=== PATIENT | female | born 1945 | race Caucasian/White ===

== ENCOUNTER 2016-05-03 18:45 | Inpatient (IN) ==
[2016-05-03] MEDS ORDERED: Ipratropium/Albuterol Neb 3 ML IH ONE (19:01)
[2016-05-03] MEDS ORDERED: methylPREDNISolone 125 MG/2 ML VIAL IVP ONE (19:01)
[2016-05-03] MEDS ORDERED: Racepinephrine Neb 0.5 ML VIAL IH ONE (19:04)
--- NOTE | 2016-05-03 19:09 | Emergency Department Note ---
Disposition Clinical Impression: COPD exacerbation Disposition: Admitted As Inpatient Condition: Fair SOB HPI - General Chief Complaint: ED Shortness of Breath/Dyspnea Stated Complaint: beatriz Time Seen by Provider: 05/03/16 18:51 Source: patient, EMS Limitations: no limitations Nursing Notes Reviewed: Yes Vital Signs Reviewed: Yes - History of Present Illness Patient has a history of COPD and tracheomalacia. Patient with shortness of breath worsening over 2 days acutely worse today. Patient states she has been taking at home breathing treatments without relief. Patient currently having some stridor and not able to talk in complete sentences. Patient will be given racemic epi steroids and do nebs she has got bilateral decreased breath sounds. Discussed with patient BiPAP in possible intubation. Patient is okay with BiPAP but does not want intubated. - Related Data Home Medications Medication Instructions Recorded Confirmed Budesonide/Formoterol 160/4.5 2 puff IH BID 12/19/14 05/03/16 [Symbicort] Docusate [Colace] 100 mg PO BID 12/19/14 05/03/16 Oxygen 2.5 l NS AD 05/17/15 05/03/16 Zaleplon [Sonata] 5 mg PO HS PRN 07/26/15 05/03/16 Nitroglycerin [Nitrostat] 0.4 mg SL Q5M PRN 11/22/15 05/03/16 Acetaminophen [Tylenol] 1,000 mg PO Q6HR PRN 12/20/15 05/03/16 Albuterol Sulfate [Proair Hfa] 2 puff IH Q4H PRN #0 12/20/15 05/03/16 Ergocalciferol (VITAMIN D2) 50,000 unit PO FR 12/20/15 05/03/16 [Vitamin D2 (50,000 UNIT)] Albuterol Neb [Proventil Neb] 2.5 mg IH QID 01/04/16 05/03/16 Alprazolam [Xanax 0.25 MG Tablet] 0.25 mg PO TID PRN 01/04/16 05/03/16 Alprazolam [Xanax 0.5 MG Tablet] 0.5 mg PO HS PRN 01/04/16 05/03/16 Tiotropium [Spiriva] 18 mcg IH 0800 01/04/16 05/03/16 HYDROcodone/Acet 5/325 mg [[place] 1 tab PO TID PRN 02/26/16 05/03/16 5-325 mg] Ondansetron ODT [Zofran ODT] 4 mg SL Q8HR PRN 02/26/16 05/03/16 Bisacodyl [Dulcolax] 10 mg RC DAILY PRN 05/03/16 05/03/16 Fluticasone Propionate Nasal 50 mcg NS HS 05/03/16 05/03/16 [Flonase] L. Acidophilus/Pectin, [place] 1 each PO DAILY 05/03/16 05/03/16 [Acidophilus Probiotic Capsule] Lactulose 20 gm PO DAILY PRN 05/03/16 05/03/16 Metoprolol [Lopressor] 12.5 mg PO BID 05/03/16 05/03/16 Multivitamin QAM 05/03/16 Omeprazole [PriLOSEC] 40 mg PO DAILY 05/03/16 05/03/16 Allergies Allergy/AdvReac Type Severity Reaction Status Date / Time acetylcysteine Allergy Severe Anaphylaxis Verified 02/26/16 09:32 Iodinated Contrast Media - Allergy See Verified 02/26/16 09:32 Oral and Comments [Iodinated Contrast Media - IV Dye] ramelteon [From Rozerem] Allergy Difficulty Verified 02/26/16 09:32 Breathing Amoxicillin [From Augmentin] AdvReac Intermediate Nausea Verified 02/26/16 09:32 azithromycin [From Zithromax] AdvReac Intermediate Nausea Verified 02/26/16 09: 32 clavulanic acid AdvReac Intermediate Nausea Verified 02/26/16 09:32 [From Augmentin] dexlansoprazole AdvReac Mild Headache Verified 02/26/16 09:32 [From Dexilant] prednisone AdvReac Mild See Verified 02/26/16 09:32 Comments sertraline [From Zoloft] AdvReac Mild Depression Verified 02/26/16 09:32 Tetracycline AdvReac Mild Nausea Verified 02/26/16 09:32 Varenicline [From Chantix] AdvReac Mild Nightmare Verified 02/26/16 09:32 Constitutional: Denies: fever, chills, weakness Eyes: Denies: eye pain ENT ED: Denies: ear pain Cardiovascular: Reports: dyspnea on exertion. Denies: chest pain, palpitations Respiratory: Reports: dyspnea, wheezes Gastrointestinal: Denies: abdominal pain, nausea, vomiting Genitourinary: Denies: urgency, dysuria Musculoskeletal: Denies: back pain, neck pain Integumentary: Denies: rash, abrasion Neurological: Denies: headache, weakness Psychiatric: Denies: anxiety, depression Endocrine: Denies: fatigue Hematological/Lymphatic: Denies: easy bleeding Past Medical History - Past Medical History Medical history: Reports: asthma, cancer, CHF, COPD, coronary artery disease, GERD, hyperlipidemia, hypertension, myocardial infarction, osteoporosis, pulmonary embolus, other Surgical history: Reports: angioplasty/stent, cancer surgery, cataract, cholecystectomy, sinus surgery Psychiatric history: Reports: anxiety, depression 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 - Social History Smoking Status: Former smoker Smokeless Tobacco Status: No Alcohol use: Reports: none Drug use: Reports: none Physical Exam - General Limitations: no limitations General appearance: alert, in no apparent distress - Head Head exam: atraumatic, normocephalic - Eye Eye exam: Present: normal appearance - ENT ENT exam: normal exam, normal oropharynx - Neck Neck exam: Present: normal inspection - Respiratory Respiratory exam: Present: respiratory distress, wheezes, stridor - Cardiovascular Cardiovascular exam: Present: regular rate, normal rhythm - Abdominal Exam Abdominal exam: Present: soft, Non-Tender - Extremities Exam Extremities exam: Present: normal inspection - Back Exam Back exam: Present: normal inspection - Neurological Exam Neurological exam: Present: alert, oriented X3 - Psychiatric Psychiatric exam: Present: normal affect, normal mood - Skin Skin exam: Present: warm, dry, intact Course - Reevaluation(s) Reevaluation #1: Patient was going to do racemic epi but is unwilling to do do another Xopenex secondary to it irritating her tracheomalacia. Patient understands that that is the rescue medication for COPD exacerbations. Patient refusing at this time. Clinical judgment and insight intact she knows that if she does not get better she may go into respiratory arrest. Reevaluation #2: Patient's tachycardia and tachypnea resolved with BiPAP. Patient doing extremely well this time but feels unable to go home. - Consultations Consultation #1: Discussed with hospitalist Dr Mcclure. Pt accepted. Vital Signs Temperature 98.4 F 05/03/16 18:46 Pulse Rate 119 05/03/16 18:46 Respiratory Rate 28 05/03/16 18:46 Blood Pressure 189/159 05/03/16 18:46 O2 Sat by Pulse Oximetry 93 L 05/03/16 18:46 Temperature 97.9 F 05/03/16 22:32 Pulse Rate 88 05/03/16 22:32 Respiratory Rate 22 05/03/16 22:32 Blood Pressure 140/95 05/03/16 22:32 O2 Sat by Pulse Oximetry 99 05/03/16 22:32 Oxygen Delivery Oxygen Delivery Nasal Cannula Shortness of Breath/Dyspnea - Lab Data Result diagrams: 05/03/16 19:19 05/03/16 19:19 Lab Results 05/03/16 05/03/16 05/03/16 Range/Units 19:19 19:19 19:19 WBC 6.4 (4.3-11.1) K/mcL RBC 4.44 (3.82-4.97) M/mcL Hgb 13.9 (11.5-15.4) g/dL Hct 42.2 (35.3-44.9) % MCV 95.0 (83.0-100.0) fL MCH 31.3 (28.0-33.3) pg MCHC 32.9 (31.6-35.5) g/dL RDW 13.2 (11.5-14.5) % Plt Count 433 H (140-400) K/mcL MPV 7.8 L (9.4-12.4) fL Immature Gran % 0.5 (0-4) % Seg Neutrophils % 59.4 % Lymphocytes % 25.5 % Monocytes % 11.8 % Eosinophils % 1.9 % Basophils % 0.9 % Neutrophils # 3.8 (1.6-8.9) K/mcL Lymphocytes # 1.6 (0.6-4.6) K/mcL Monocytes # 0.8 (0.0-1.3) K/mcL Eosinophils # 0.1 (0.0-0.6) K/mcL Basophils # 0.1 (0.0-0.2) K/mcL Sodium 138 (136-145) mEq/L Potassium 4.3 (3.5-4.5) mEq/L Chloride 100 (98-109) mEq/L Carbon Dioxide 30 H (19-29) mEq/L BUN 8 (7-20) mg/dL Creatinine 0.77 (0.57-1.11) mg/dL Est GFR ( Amer) > 60 (> 60) Est GFR (Non-Af Amer) > 60 (> 60) BUN/Creatinine Ratio 10 (6-26) Glucose 95 (70-99) mg/dL Calculated Osmolality 284 (280-300) Calcium 9.3 (8.6-10.8) mg/dL Troponin I 0.01 (0-0.03) ng/mL B-Natriuretic Peptide (0-100) pg/mL 05/03/16 Range/Units 19:19 WBC (4.3-11.1) K/mcL RBC (3.82-4.97) M/mcL Hgb (11.5-15.4) g/dL Hct (35.3-44.9) % MCV (83.0-100.0) fL MCH (28.0-33.3) pg MCHC (31.6-35.5) g/dL RDW (11.5-14.5) % Plt Count (140-400) K/mcL MPV (9.4-12.4) fL Immature Gran % (0-4) % Seg Neutrophils % % Lymphocytes % % Monocytes % % Eosinophils % % Basophils % % Neutrophils # (1.6-8.9) K/mcL Lymphocytes # (0.6-4.6) K/mcL Monocytes # (0.0-1.3) K/mcL Eosinophils # (0.0-0.6) K/mcL Basophils # (0.0-0.2) K/mcL Sodium (136-145) mEq/L Potassium (3.5-4.5) mEq/L Chloride (98-109) mEq/L Carbon Dioxide (19-29) mEq/L BUN (7-20) mg/dL Creatinine (0.57-1.11) mg/dL Est GFR ( Amer) (> 60) Est GFR (Non-Af Amer) (> 60) BUN/Creatinine Ratio (6-26) Glucose (70-99) mg/dL Calculated Osmolality (280-300) Calcium (8.6-10.8) mg/dL Troponin I (0-0.03) ng/mL B-Natriuretic Peptide 152 H (0-100) pg/mL
--- NOTE | 2016-05-03 19:13 | Emergency Department Note ---
START Narrative - START START: I examined this patient and my medical decision-making was reviewed with the QUALITY AUDITOR/PA/Advanced Practice Nurse/Resident Physician. I agree with the documented findings, disposition and treatment plan as described except to the extent set forth below. ED attending note: I saw this Patient with the emergency medicine resident Dr. Nye. Please see a copy of his note for details of the H&P, evaluation, management and disposition of this emergency Department patient. We independently had [id number] contact with the patient. Briefly: 70-year-old female by EMS, whose DO NOT RESUSCITATE comfort care advanced directive, presents to the emergency department with shortness of breath. Patient has a history of advanced oxygen-dependent at home COPD and tracheal malacia has speech dyspnea stridor hypoxia tachypnea and tachycardia. Lungs were completely clear because upper airway stridor. She has pursed lip breathing. Satting in the 90s at 4 L/m nasal cannula. We will provide racemic epinephrine nebulizers beta agonist aerosol was nebulizers and IV steroids chest x-ray EKG and lab work. Disposition pending. Provided 40 minutes critical care service for this patient. Patient stabilizing.
[2016-05-03 19:27] LABS: Basophils # 0.1 K/mcL (0.0-0.2); Basophils % 0.9 %; Eosinophils # 0.1 K/mcL (0.0-0.6); Eosinophils % 1.9 %; Hematocrit 42.2 % (35.3-44.9); Hemoglobin 13.9 g/dL (11.5-15.4); Immature Granulocytes % 0.5 % (0-4); Lymphocytes # 1.6 K/mcL (0.6-4.6); Lymphocytes % 25.5 %; Mean Corpuscular HGB Conc 32.9 g/dL (31.6-35.5); Mean Corpuscular Hemoglobin 31.3 pg (28.0-33.3); Mean Platelet Volume 7.8 fL (9.4-12.4); Monocytes # 0.8 K/mcL (0.0-1.3); Monocytes % 11.8 %; Neutrophils # 3.8 K/mcL (1.6-8.9); Platelet Count 433 K/mcL (140-400); Red Blood Count 4.44 M/mcL (3.82-4.97); Red Cell Distribution Width 13.2 % (11.5-14.5); Segmented Neutrophils % 59.4 %
[2016-05-03] MEDS ORDERED: Budesonide/Formoterol 80/4.5 MDI IH STA (19:30)
[2016-05-03 19:39] LABS: BUN/Creatinine Ratio 10 (6-26); Blood Urea Nitrogen 8 mg/dL (7-20); Calcium 9.3 mg/dL (8.6-10.8); Carbon Dioxide 30 mEq/L (19-29); Chloride 100 mEq/L (98-109); Glucose 95 mg/dL (70-99); Osmolality,Calculated 284 (280-300); Potassium 4.3 mEq/L (3.5-4.5); Sodium 138 mEq/L (136-145); eGFR For African Americans > 60 (> 60); eGFR For Non-African Americans > 60 (> 60)
[2016-05-03] MEDS ORDERED: Ipratropium/Albuterol Neb 3 ML IH PRN (23:27)
[2016-05-03] MEDS ORDERED: *HR* HYDROcodone/Acet 5/325 mg TABLET PO PRN (23:27)
[2016-05-03] MEDS ORDERED: Lactulose Oral Soln 20 GM/30 ML UDC PO PRN (23:27)
[2016-05-03] MEDS ORDERED: Bisacodyl 10 MG RECTAL SUPPOSITORY RC PRN (23:27)
[2016-05-03] MEDS ORDERED: Nitroglycerin 0.4 MG TAB.SUBL SL PRN (23:27)
[2016-05-03] MEDS ORDERED: Naloxone 0.4 MG/ML INJ IVP PRN (23:29)
[2016-05-03] MEDS ORDERED: NON-FORMULARY MEDICATION 1 EACH EACH (Oxygen [Oxygen] 2.5 L) NS SCH (23:30)
[2016-05-03] MEDS: ALPRAZolam 0.5 MG TABLET PO PRN (23:53)
[2016-05-03] MEDS: Ipratropium/Albuterol Neb 3 ML IH SCH (23:55)
[2016-05-04] MEDS ORDERED: GI Cocktail 40 ML EACH PO ONE (00:09)
--- NOTE | 2016-05-04 01:11 | Internal Med History&Physical ---
Date of Encounter: 05/03/16 Time of Encounter: 23:00 Assessment and Plan (1) Dyspnea Current visit: Yes Status: Acute Likely secondary to COPD exacerbation and underlying tracheomalacia Currently saturating well on nasal cannula Continue O2 supplementation as needed Continue steroid and bronchodilator support BiPAP when necessary Continue to monitor O2 saturation, O2 saturation goal 89-92% Qualifiers: Dyspnea type: unspecified Qualified Code(s): R06.00 - Dyspnea, unspecified (2) Acute exacerbation of chronic obstructive airways disease Current visit: No Status: Acute as listed above (3) Hypertension Current visit: Yes Status: Chronic BP within acceptable range Continue home medications Qualifiers: Hypertension type: essential hypertension Qualified Code(s): I10 - Essential (primary) hypertension (4) CAD (coronary artery disease) Current visit: No Status: Chronic Asymptomatic at this time Continue home medications Qualifiers: Coronary Disease-Associated Artery/Lesion type: [place] artery [place] vs. transplanted heart: [place] heart Associated angina: without angina Qualified Code(s): I25.10 - Atherosclerotic heart disease of [place] coronary artery without angina pectoris (5) GERD (gastroesophageal reflux disease) Current visit: No Status: Chronic Reports of chronic epigastric discomfort, asymptomatic at this time Continue PPI Qualifiers: Esophagitis presence: esophagitis presence not specified Qualified Code(s) : K21.9 - Gastro-esophageal reflux disease without esophagitis (6) DVT prophylaxis Current visit: No Status: Acute Heparin subcutaneous Internal Medicine - H&P: HPI Chief complaint: shortness of breath Admitted From: Home Plans for Post Hospital Care: Home History of present illness: Ms. Blackburn is a 70 year old female with past medical history of end-stage COPD on home oxygen, CHF, CAD, GERD, hyperlipidemia, hypertension who presents to the ER for worsening shortness of breath. Patient reports of having history of tracheomalacia contributing to her worsening shortness of breath. She states her nebulizer treatments were not effective this time due to which she had to come to the ER. Upon arrival to the ER, patient was noted to have stridor and received racemic epinephrine along with Solu-Medrol with resolution of her acute respiratory distress. At this time patient is resting in bed, reports of feeling significantly better since her arrival to the hospital. She denies any recent cough, sore throat, any sick contacts, however reports of recently being hospitalized in March for similar complaints along with chest pain at that time. She denies any headache, lightheadedness, dizziness, chest pain, abdominal pain, nausea, vomiting, fever, or chills. She is saturating well on nasal cannula at this time, and is refusing BiPAP support at this time. I had a detailed discussion about patient's advanced directives, she wishes to be DNR/DNI. Reports of having a living will, and appoints her son as her power of criminal attorney. Past Med Surg Social Fam HX - Past Medical History Medical history: asthma, cancer, CHF, COPD, coronary artery disease, GERD, hyperlipidemia, hypertension, myocardial infarction, osteoporosis, pulmonary embolus, other Psychiatric history: anxiety, depression - Past Surgical History Surgical History: angioplasty/stent, cancer surgery, cataract, cholecystectomy, sinus surgery - Social History Smoking Status: Former smoker Smokeless Tobacco Status: No Alcohol use: none Drug use: none - Family History Son Living Status: Still Living Hx Family GI Disorders: Yes Mother Living Status: Hx Family Cancer: Yes (Uterine) Sister Living Status: Still Living Hx Family Cardiac Disorders: Yes (Cerebrovascular accident) Hx Family Respiratory Disorders: No Hx Family Cancer: No Hx Family GI Disorders: No Hx Family Endocrine Disorder: No Hx Family Neuromuscular Disorders: No Hx Family Neurologic Disorders: No Hx Family HEENT Disorders: No Hx Family Autoimmune Disorders: No Daughter Living Status: Still Living Hx Family Cardiac Disorders: Yes (stent) Hx Family Respiratory Disorders: Yes (copd, allergies,) Hx Family Cancer: No Hx Family GI Disorders: No Hx Family Endocrine Disorder: No Hx Family Neuromuscular Disorders: No Hx Family Neurologic Disorders: No Hx Family HEENT Disorders: No Hx Family Autoimmune Disorders: No Brother Family Member Ethnicity: Non- Living Status: Still Living Hx Family Cardiac Disorders: Yes (Coronary artery disease) Hx Family Respiratory Disorders: No Hx Family Cancer: No Hx Family GI Disorders: No Hx Family Endocrine Disorder: Yes (TYPE 2 DIABETES MELLITUS) Hx Family Neuromuscular Disorders: No Hx Family Neurologic Disorders: No Hx Family HEENT Disorders: No Hx Family Autoimmune Disorders: No Father Living Status: Hx Family Cardiac Disorders: Yes (Coronary artery disease) Hx Family Respiratory Disorders: No Hx Family Cancer: Yes (Bladder) Hx Family GI Disorders: No Hx Family Endocrine Disorder: No Hx Family Neuromuscular Disorders: No Hx Family Neurologic Disorders: No Hx Family HEENT Disorders: No Hx Family Autoimmune Disorders: No Internal Medicine - H&P: Meds Budesonide/Formoterol 160/4.5 [Symbicort] 2 puff IH BID 12/19/14 [History] Docusate [Colace] 100 mg PO BID 12/19/14 [History] Oxygen 2.5 l NS AD 05/17/15 [History] Zaleplon [Sonata] 5 mg PO HS PRN 07/26/15 [History] Nitroglycerin [Nitrostat] 0.4 mg SL Q5M PRN 11/22/15 [History] Acetaminophen [Tylenol] 1,000 mg PO Q6HR PRN 12/20/15 [History] Albuterol Sulfate [Proair Hfa] 2 puff IH Q4H PRN #0 12/20/15 [History] Ergocalciferol (VITAMIN D2) [Vitamin D2 (50,000 UNIT)] 50,000 unit PO FR [History] Albuterol Neb [Proventil Neb] 2.5 mg IH QID 01/04/16 [History] Alprazolam [Xanax 0.25 MG Tablet] 0.25 mg PO TID PRN 01/04/16 [History] Alprazolam [Xanax 0.5 MG Tablet] 0.5 mg PO HS PRN 01/04/16 [History] Tiotropium [Spiriva] 18 mcg IH 0800 01/04/16 [History] HYDROcodone/Acet 5/325 mg [[place] 5-325 mg] 1 tab PO TID PRN 02/26/16 [History] Ondansetron ODT [Zofran ODT] 4 mg SL Q8HR PRN 02/26/16 [History] Bisacodyl [Dulcolax] 10 mg RC DAILY PRN 05/03/16 [History] Fluticasone Propionate Nasal [Flonase] 50 mcg NS HS 05/03/16 [History] L. Acidophilus/Pectin, [place] [Acidophilus Probiotic Capsule] 1 each PO DAILY [History] Lactulose 20 gm PO DAILY PRN 05/03/16 [History] Metoprolol [Lopressor] 12.5 mg PO BID 05/03/16 [History] Multivitamin QAM 01/13/17 [History] Omeprazole [PriLOSEC] 40 mg PO DAILY 05/03/16 [History] Allergies acetylcysteine Allergy (Severe, Verified 02/26/16 09:32) Anaphylaxis Iodinated Contrast Media - Oral and [Iodinated Contrast Media - IV Dye] Allergy (Verified 02/26/16 09:32) See Comments ramelteon [From Rozerem] Allergy (Verified 02/26/16 09:32) Difficulty Breathing Amoxicillin [From Augmentin] Adverse Reaction (Intermediate, Verified 02/26/16 09:32) Nausea azithromycin [From Zithromax] Adverse Reaction (Intermediate, Verified 02/26/16 09:32) Nausea clavulanic acid [From Augmentin] Adverse Reaction (Intermediate, Verified 09:32) Nausea dexlansoprazole [From Dexilant] Adverse Reaction (Mild, Verified 02/26/16 09:32) Headache Itching prednisone Adverse Reaction (Mild, Verified 02/26/16 09:32) See Comments Patient states high doses for long periods of time make her mind go crazy. sertraline [From Zoloft] Adverse Reaction (Mild, Verified 02/26/16 09:32) Depression Tetracycline Adverse Reaction (Mild, Verified 02/26/16 09:32) Nausea Varenicline [From Chantix] Adverse Reaction (Mild, Verified 02/26/16 09:32) Nightmare All Systems PM: A 10-system review of systems was performed and is negative for pertinent findings except as documented above in the HPI. - Constitutional Constitutional: as per HPI - Constitutional Vitals: Temp Pulse Resp BP Pulse Ox 97.9 F 88 22 140/95 99 05/03/16 22:32 05/03/16 22:32 05/03/16 22:32 05/03/16 22:32 05/03/16 22:32 General appearance: Present: cooperative, A&O X 3, pleasant, no acute distress, answers questions appropriately - Head Head exam: Present: atraumatic, normocephalic - Eye Eye exam: Present: PERRL, conjuntiva pink, sclera anicteric - Respiratory Respiratory exam: Present: decreased breath sounds. Absent: respiratory distress, rhonchi, wheezes - Cardiovascular Cardiovascular exam: Present: RRR, +S1, +S2. Absent: diastolic murmur, gallop, rubs, systolic murmur - GI/Abdominal GI/Abdominal exam: Present: normal bowel sounds, soft, no peritoneal signs. Absent: distended, tenderness - Extremities Exam Extremities exam: Present: warm, radial pulses palpable and symetrical. Absent : calf tenderness, cyanotic, pedal edema - Neurological Exam Neurological exam: Present: alert, oriented X3, no focal deficits - Psychiatric Psychiatric exam: Present: normal affect, normal mood Internal Med - H&P Results - Labs CBC & Chem 7: 05/03/16 19:19 05/03/16 19:19
[2016-05-04 03:27] LABS: Basophils % 0.3 %; Hematocrit 41.3 % (35.3-44.9); Hemoglobin 13.6 g/dL (11.5-15.4); Immature Granulocytes % 0.5 % (0-4); Lymphocytes # 0.4 K/mcL (0.6-4.6); Lymphocytes % 5.7 %; Mean Corpuscular HGB Conc 32.9 g/dL (31.6-35.5); Mean Corpuscular Hemoglobin 31.1 pg (28.0-33.3); Mean Corpuscular Volume 94.3 fL (83.0-100.0); Monocytes # 0.1 K/mcL (0.0-1.3); Monocytes % 0.8 %; Neutrophils # 5.7 K/mcL (1.6-8.9); Platelet Count 452 K/mcL (140-400); Red Blood Count 4.38 M/mcL (3.82-4.97); Segmented Neutrophils % 92.7 %
[2016-05-04 03:34] LABS: BUN/Creatinine Ratio 13 (6-26); Blood Urea Nitrogen 9 mg/dL (7-20); Calcium 9.6 mg/dL (8.6-10.8); Carbon Dioxide 30 mEq/L (19-29); Chloride 103 mEq/L (98-109); Glucose 153 mg/dL (70-99); Magnesium 2.3 mg/dL (1.6-2.6); Osmolality,Calculated 282 (280-300); Phosphorous 3.3 mg/dL (2.3-4.7); Sodium 135 mEq/L (136-145); eGFR For African Americans > 60 (> 60); eGFR For Non-African Americans > 60 (> 60)
[2016-05-04] MEDS: Ipratropium/Albuterol Neb 3 ML IH SCH ×6 (04:40→23:01)
[2016-05-04] MEDS: Albuterol 2.5 MG/3 ML NEBULIZER IH SCH ×5 (04:40→22:56)
[2016-05-04] MEDS: MethylPREDNISolone 40 MG/ML VIAL IVP SCH ×3 (04:57→21:28)
[2016-05-04] MEDS: *HR* Heparin 5,000 UNIT/ML VIAL SQ SCH ×2 (04:57→18:12)
[2016-05-04] MEDS: Pantoprazole 40 MG VIAL IVP SCH (08:26)
[2016-05-04] MEDS: Lactobacillus 1 EACH CAP.SPRINK PO SCH (08:29)
[2016-05-04] MEDS: Tiotropium 18 MCG inhalation IH SCH (09:38)
[2016-05-04] MEDS: Budesonide/Formoterol 160/4.5 MDI IH SCH ×2 (09:39→22:56)
[2016-05-04] MEDS: ALPRAZolam 0.25 MG TABLET PO PRN (18:12)
[2016-05-04] MEDS: Aspirin 81 MG TAB.CHEW PO SCH (18:14)
--- NOTE | 2016-05-04 20:49 | Internal Med Progress Note ---
Date of Encounter: 05/04/16 Time of Encounter: 11:05 - Assessment and plan (1) COPD exacerbation Current Visit: Yes Status: Acute Assessment and plan: Patient is improving. Continue Solu-Medrol, albuterol inhaler and Spiriva. (2) Hypertension Current Visit: Yes Status: Chronic Assessment and plan: Continue metoprolol Qualifiers: Hypertension type: essential hypertension Qualified Code(s): I10 - Essential (primary) hypertension (3) DVT prophylaxis Current Visit: No Status: Acute Assessment and plan: Continue subcutaneous heparin (4) Tracheobronchomalacia Current Visit: Yes Status: Chronic (5) Constipation Current Visit: No Status: Acute Assessment and plan: Treat with lactulose. Qualifiers: Constipation type: unspecified constipation type Qualified Code(s): K59.00 - Constipation, unspecified - Subjective Interval history: Pt is seen and examined at the bedside and chart reviewed. Pt reports shortness of breath is improving. Denies wheeze, nausea, vomiting, fever, chills. Reports epigastric pain/discomfort, constipation - Constitutional Vitals: Temp Pulse Resp BP Pulse Ox 98.0 F 91 20 133/86 99 05/04/16 19:32 05/04/16 19:32 05/04/16 19:32 05/04/16 19:32 05/04/16 19:32 Exam: General: Not in acute distress at the time of my evaluation Lungs: No significant wheeze Cardiac: Regular rate and rhythm. No significant murmurs Abdomen: Soft, non tender. Bowel sounds present Neurological: Alert and oriented. No gross localizing deficits Psych: Not aggressive or agitated Extremities: no significant leg edema Skin: No generalized rash Internal Medicine: Result - Labs CBC & Chem 7: 05/04/16 02:52 05/04/16 02:52 Labs: Short CBC 05/04/16 Range/Units 02:52 WBC 6.1 (4.3-11.1) K/mcL Hgb 13.6 (11.5-15.4) g/dL Hct 41.3 (35.3-44.9) % Plt Count 452 H (140-400) K/mcL Neutrophils # 5.7 (1.6-8.9) K/mcL BMP 05/04/16 02:52 Sodium 135 L Potassium 5.0 H Chloride 103 Carbon Dioxide 30 H BUN 9 Creatinine 0.72 Glucose 153 H Calcium 9.6 Consult Discharge Plan - Plan Referrals: Paula Casiano CNP [Primary Care Provider] -
[2016-05-04] MEDS: ALPRAZolam 0.5 MG TABLET PO PRN (21:28)
[2016-05-04] MEDS: FLUTICASONE PROPIONATE NS SCH (21:29)
[2016-05-05] MEDS: Ipratropium/Albuterol Neb 3 ML IH SCH ×6 (04:43→22:44)
[2016-05-05] MEDS: Albuterol 2.5 MG/3 ML NEBULIZER IH SCH ×4 (04:44→22:43)
[2016-05-05 05:32] LABS: BUN/Creatinine Ratio 20 (6-26); Blood Urea Nitrogen 12 mg/dL (7-20); Calcium 9.1 mg/dL (8.6-10.8); Carbon Dioxide 23 mEq/L (19-29); Chloride 101 mEq/L (98-109); Glucose 135 mg/dL (70-99); Osmolality,Calculated 278 (280-300); Potassium 4.7 mEq/L (3.5-4.5); Sodium 133 mEq/L (136-145); eGFR For African Americans > 60 (> 60); eGFR For Non-African Americans > 60 (> 60)
[2016-05-05] MEDS: MethylPREDNISolone 40 MG/ML VIAL IVP SCH ×3 (05:53→21:46)
[2016-05-05] MEDS: *HR* Heparin 5,000 UNIT/ML VIAL SQ SCH ×2 (05:54→17:31)
[2016-05-05] MEDS: Budesonide/Formoterol 160/4.5 MDI IH SCH ×2 (08:28→22:21)
[2016-05-05] MEDS: Tiotropium 18 MCG inhalation IH SCH (08:29)
[2016-05-05] MEDS: Pantoprazole 40 MG VIAL IVP SCH (08:54)
[2016-05-05] MEDS: Lactobacillus 1 EACH CAP.SPRINK PO SCH (08:54)
[2016-05-05] MEDS: Aspirin 81 MG TAB.CHEW PO SCH (08:55)
[2016-05-05] MEDS: Ondansetron 4 MG/2 ML VIAL IVP PRN (08:58)
--- NOTE | 2016-05-05 14:46 | Electrocardiograph Report ---
[facility] Test Date: 2016-05-03 Pat Name: Anuradha Blackburn Department: 104 Room: 2N15 Gender: F Staffing Administrator: [facility] : 1945 Requested By: Darrius Nye Order Number: [id number] Reading MD: Alexander Melendez MD Measurements Intervals [place] Rate: 118 P: 91 HI: 166 QRS: 50 QRSD: 91 T: 85 QT: 337 QTc: 407 Interpretive Statements SINUS TACHYCARDIA BASELINE ARITFACT Electronically Signed On 05-05-16 14:45:34 EST by Alexander Melendez MD
--- NOTE | 2016-05-05 17:21 | Internal Med Progress Note ---
Date of Encounter: 05/06/16 Time of Encounter: 12:20 - Assessment and plan (1) COPD exacerbation Current Visit: Yes Status: Acute Assessment and plan: Patient is improving. Continue Solu-Medrol, albuterol inhaler and Spiriva. (2) Hypertension Current Visit: Yes Status: Chronic Assessment and plan: Continue metoprolol Qualifiers: Hypertension type: essential hypertension Qualified Code(s): I10 - Essential (primary) hypertension (3) DVT prophylaxis Current Visit: No Status: Acute Assessment and plan: Continue subcutaneous heparin (4) Tracheobronchomalacia Current Visit: Yes Status: Chronic (5) Constipation Current Visit: No Status: Acute Assessment and plan: Treated with lactulose - pt had multiple BMs. Qualifiers: Constipation type: unspecified constipation type Qualified Code(s): K59.00 - Constipation, unspecified (6) Hyperkalemia Current Visit: Yes Status: Acute Assessment and plan: Treated with keyexalate - Subjective Interval history: Pt is seen and examined at the bedside and chart reviewed. Pt reports shortness of breath is improving. Denies wheeze, nausea, vomiting, fever, chills. Reports epigastric pain/discomfort, and bloating sensation. Had multiple bowel movements. Pt does not feel well enough to go home today - Constitutional Vitals: Temp Pulse Resp BP Pulse Ox 98.5 F 89 20 145/93 91 L 05/05/16 16:16 05/05/16 16:16 05/05/16 16:47 05/05/16 16:16 05/05/16 16:47 Exam: General: Not in acute distress at the time of my evaluation Lungs: Clear to auscultation Cardiac: Regular rate and rhythm. No significant murmurs Abdomen: Soft, mild upper abdominal tenderness present. Bowel sounds present Neurological: Alert and oriented. No gross localizing deficits Psych: Not aggressive or agitated Extremities: no significant leg edema Skin: No generalized rash Internal Medicine: Result - Labs CBC & Chem 7: 05/04/16 02:52 05/05/16 04:34 Labs: BMP 05/05/16 04:34 Sodium 133 L Potassium 4.7 H Chloride 101 Carbon Dioxide 23 BUN 12 Creatinine 0.61 Glucose 135 H Calcium 9.1 Consult Discharge Plan - Plan Referrals: Paula Casiano TELEPHONE STATION INSTALLER [Primary Care Provider] -
[2016-05-05] MEDS: ALPRAZolam 0.5 MG TABLET PO PRN (21:45)
[2016-05-05] MEDS: FLUTICASONE PROPIONATE NS SCH (21:46)
[2016-05-06] MEDS: ALPRAZolam 0.25 MG TABLET PO PRN ×2 (04:08→17:52)
[2016-05-06] MEDS: MethylPREDNISolone 40 MG/ML VIAL IVP SCH ×3 (04:08→20:31)
[2016-05-06] MEDS: Ipratropium/Albuterol Neb 3 ML IH SCH ×5 (04:09→21:53)
[2016-05-06] MEDS: Albuterol 2.5 MG/3 ML NEBULIZER IH SCH ×4 (04:10→21:10)
[2016-05-06] MEDS: *HR* Heparin 5,000 UNIT/ML VIAL SQ SCH ×2 (04:23→17:52)
[2016-05-06] MEDS: Lactobacillus 1 EACH CAP.SPRINK PO SCH (09:12)
[2016-05-06] MEDS: Pantoprazole 40 MG VIAL IVP SCH (09:12)
[2016-05-06] MEDS: Aspirin 81 MG TAB.CHEW PO SCH (09:12)
[2016-05-06] MEDS: Budesonide/Formoterol 160/4.5 MDI IH SCH ×2 (09:35→21:10)
[2016-05-06] MEDS: Tiotropium 18 MCG inhalation IH SCH (09:36)
--- NOTE | 2016-05-06 13:15 | Internal Med Progress Note ---
Date of Encounter: 05/06/16 Time of Encounter: 08:00 - Assessment and plan (1) COPD exacerbation Current Visit: Yes Status: Acute Assessment and plan: contineu IV steroids add pulmicort continue, med nebs add spiriva/ formoterol , concern for pneumonia check CT chest, pt has severe COPD and tracheomalacia , will need pulmonary rehab , will consult pulmonology (2) Hypertension Current Visit: Yes Status: Chronic Assessment and plan: stable , will check echo to evaluate LVF Qualifiers: Hypertension type: essential hypertension Qualified Code(s): I10 - Essential (primary) hypertension (3) Abdominal bloating Current Visit: No Status: Acute Assessment and plan: ech KUB concern for constipation (4) Debility Current Visit: Yes Status: Chronic Assessment and plan: PT/OT (5) Anxiety Current Visit: No Status: Chronic Assessment and plan: ativan PRN - Time Spent With Patient Greater than 35 minutes - Subjective Interval history: Pt c/o SOB on minimal exertion - Constitutional Vitals: Temp Pulse Resp BP Pulse Ox 98.3 F 84 18 138/90 93 L 05/06/16 11:13 05/06/16 11:13 05/06/16 11:13 05/06/16 11:13 05/06/16 11:13 General appearance: Present: cooperative, A&O X 3, pleasant, no acute distress, answers questions appropriately - Respiratory Respiratory exam: Present: accessory muscle use, wheezes Additional comments: expirator wheezes - Cardiovascular Cardiovascular exam: Present: RRR, +S1, +S2 - GI/Abdominal GI/Abdominal exam: Present: soft, no peritoneal signs. Absent: tenderness - Extremities Exam Extremities exam: Present: warm, radial pulses palpable and symetrical - Neurological Exam Neurological exam: Present: CN II-XII intact, oriented X3 Internal Medicine: Result - Labs CBC & Chem 7: 05/04/16 02:52 05/05/16 04:34 - VTE Reasons for not Prescribing Prophylaxis: Refused by parent Consult Discharge Plan - Plan Referrals: Paula Casiano, CHUCKING AND BORING MACHINE OPERATOR [Primary Care Provider] -
[2016-05-06 14:15] LABS: BUN/Creatinine Ratio 20 (6-26); Blood Urea Nitrogen 13 mg/dL (7-20); Calcium 9.1 mg/dL (8.6-10.8); Carbon Dioxide 28 mEq/L (19-29); Chloride 98 mEq/L (98-109); Glucose 130 mg/dL (70-99); Osmolality,Calculated 282 (280-300); Potassium 3.8 mEq/L (3.5-4.5); Sodium 135 mEq/L (136-145); eGFR For African Americans > 60 (> 60); eGFR For Non-African Americans > 60 (> 60)
[2016-05-06] MEDS: GI Cocktail 40 ML EACH PO PRN (14:20)
[2016-05-06] MEDS: Levofloxacin 500 MG/100 ML 500 MG/100 ML BAG IVPB SCH (14:24)
[2016-05-06] MEDS: FLUTICASONE PROPIONATE NS SCH (20:33)
[2016-05-06] MEDS: ALPRAZolam 0.5 MG TABLET PO PRN (21:37)
[2016-05-06] MEDS ORDERED: Budesonide Neb 0.5 MG/2 ML IH SCH (22:00)
[2016-05-06] MEDS ORDERED: Budesonide/Formoterol 80/4.5 MDI IH SCH (22:00)
[2016-05-07] MEDS: MethylPREDNISolone 40 MG/ML VIAL IVP SCH ×2 (04:30→10:52)
[2016-05-07] MEDS: ALPRAZolam 0.25 MG TABLET PO PRN ×2 (04:43→16:01)
[2016-05-07] MEDS: Albuterol 2.5 MG/3 ML NEBULIZER IH SCH ×2 (04:44→11:16)
[2016-05-07] MEDS: Ipratropium/Albuterol Neb 3 ML IH SCH ×3 (06:25→11:29)
[2016-05-07] MEDS: *HR* Heparin 5,000 UNIT/ML VIAL SQ SCH (06:26)
[2016-05-07] MEDS: Aspirin 81 MG TAB.CHEW PO SCH (08:40)
[2016-05-07] MEDS: Pantoprazole 40 MG VIAL IVP SCH (08:40)
[2016-05-07] MEDS: Lactobacillus 1 EACH CAP.SPRINK PO SCH (08:42)
[2016-05-07] MEDS: GI Cocktail 40 ML EACH PO PRN (08:56)
[2016-05-07] MEDS ORDERED: Cholecalciferol (D-3) 1,000 UNIT TABLET PO SCH (09:00)
--- NOTE | 2016-05-07 10:50 | Discharge Summary ---
Date of Encounter: 05/07/16 Time of Encounter: 10:48 - Discharge Diagnosis (1) COPD exacerbation Priority: Primary Status: Acute (2) Hyperkalemia Priority: Secondary Status: Resolved (3) Debility Priority: Secondary Status: Chronic (4) Hypertension Priority: Secondary Status: Chronic Qualifiers: Hypertension type: essential hypertension Qualified Code(s): I10 - Essential (primary) hypertension (5) Tracheobronchomalacia Priority: Secondary Status: Chronic (6) Abdominal bloating Priority: Secondary Status: Acute (7) Anxiety Priority: Secondary Status: Chronic - Discharge Medications Prescriptions: Mag Hydrox/Al Hydrox/Simeth [Maalox] 15 ml PO Q6HR PRN #500 ml PRN Reason: Dyspepsia Lactulose 20 gm PO DAILY PRN #500 ml PRN Reason: Constipation Lisinopril [Zestril] 5 mg PO DAILY #30 tablet PredniSONE 10 mg PO DAILY 12 Days Home Medications: Budesonide/Formoterol 160/4.5 [Symbicort] 2 puff IH BID 12/19/14 [History] Docusate [Colace] 100 mg PO BID 12/19/14 [History] Oxygen 2.5 l NS AD 05/17/15 [History] Zaleplon [Sonata] 5 mg PO HS PRN 07/26/15 [History] Nitroglycerin [Nitrostat] 0.4 mg SL Q5M PRN 11/22/15 [History] Acetaminophen [Tylenol] 1,000 mg PO Q6HR PRN 12/20/15 [History] Albuterol Sulfate [Proair Hfa] 2 puff IH Q4H PRN #0 12/20/15 [History] Ergocalciferol (VITAMIN D2) [Vitamin D2 (50,000 UNIT)] 50,000 unit PO FR [History] Albuterol Neb [Proventil Neb] 2.5 mg IH QID 01/04/16 [History] Alprazolam [Xanax 0.25 MG Tablet] 0.25 mg PO TID PRN 01/04/16 [History] Alprazolam [Xanax 0.5 MG Tablet] 0.5 mg PO HS PRN 01/04/16 [History] Tiotropium [Spiriva] 18 mcg IH 0800 09/15/16 [History] HYDROcodone/Acet 5/325 mg [[place] 5-325 mg] 1 tab PO TID PRN 02/26/16 [History] Ondansetron ODT [Zofran ODT] 4 mg SL Q8HR PRN 02/26/16 [History] Bisacodyl [Dulcolax] 10 mg RC DAILY PRN 05/03/16 [History] Fluticasone Propionate Nasal [Flonase] 50 mcg NS HS 05/03/16 [History] L. Acidophilus/Pectin, [place] [Acidophilus Probiotic Capsule] 1 each PO DAILY [History] Metoprolol [Lopressor] 12.5 mg PO BID 05/03/16 [History] Multivitamin QAM 05/03/16 [History] Omeprazole [PriLOSEC] 40 mg PO DAILY 05/03/16 [History] Lactulose 20 gm PO DAILY PRN #500 ml 05/07/16 [Rx] Lisinopril [Zestril] 5 mg PO DAILY #30 tablet 05/07/16 [Rx] Mag Hydrox/Al Hydrox/Simeth [Maalox] 15 ml PO Q6HR PRN #500 ml 05/07/16 [Rx] PredniSONE 10 mg PO DAILY 12 Days 05/07/16 [Rx] Allergies/Adverse Reactions: Allergies acetylcysteine Allergy (Severe, Verified 02/26/16 09:32) Anaphylaxis Iodinated Contrast Media - Oral and [Iodinated Contrast Media - IV Dye] Allergy (Verified 02/26/16 09:32) See Comments ramelteon [From Rozerem] Allergy (Verified 02/26/16 09:32) Difficulty Breathing Amoxicillin [From Augmentin] Adverse Reaction (Intermediate, Verified 02/26/16 09:32) Nausea azithromycin [From Zithromax] Adverse Reaction (Intermediate, Verified 02/26/16 09:32) Nausea clavulanic acid [From Augmentin] Adverse Reaction (Intermediate, Verified 09:32) Nausea dexlansoprazole [From Dexilant] Adverse Reaction (Mild, Verified 02/26/16 09:32) Headache Itching prednisone Adverse Reaction (Mild, Verified 02/26/16 09:32) See Comments Patient states high doses for long periods of time make her mind go crazy. sertraline [From Zoloft] Adverse Reaction (Mild, Verified 02/26/16 09:32) Depression Tetracycline Adverse Reaction (Mild, Verified 02/26/16 09:32) Nausea Varenicline [From Chantix] Adverse Reaction (Mild, Verified 02/26/16 09:32) Nightmare Procedures/tests Complete & Pending: Procedures Performed prior 72 hours Category Date Time Status CT chest wo con [CT] Routine Cat Scan 05/06/16 15:00 Completed EV echocardiogram Routine Y 05/06/16 13:14 Completed Date of admission: 05/06/16 12:47 Primary care physician: Paula Casiano, Consults: 05/07/16 00:01 Consult to Pulmonology [CONS] Routine Consulting Provider: [facility] Reason for Consult: pt with sevre tracheomalacia Call Completed: Yes Discharging clinician: Maria Teresa Lopez Anticipated date of discharge: 05/07/16 - Patient Status Disposition: Home Health Service Condition: Good Functional capacity at discharge: uses cane/walker Overall status at discharge: patient is progressing back to baseline - Discharge Instructions Instructions: Chronic Obstructive Pulmonary Disease (DC), Chronic Hypertension (DC) Follow Up With: Paula Casiano CNP [Primary Care Provider] - 05/10/16 1:30 pm () Paramjit Ernandez MD [Partnered Physician] - 05/15/16 1:15 pm Davi Moscoso MD [Partnered Physician] - 05/14/16 10:30 am Additional Instructions: Follow-up with spine surgeon, sheet rock applicator and pediatric physiatrist as scheduled - Diet and Activity Activity: increase activity as tolerated, wear oxygen at night Diet: low fat, low cholesterol, low salt diet Hospital course: Ms. Blackburn is a 70 year old female with history of tracheobronchomalacia, COPD and chronic respiratory failure who was admitted here with acute exacerbation of COPD. She was treated with intravenous steroids, nebulizer treatments and also intravenous Levaquin. She has slowly improved with this treatment regimen and is currently on 2 L O2 supplementation at her baseline and is breathing at a normal rate. She is able to complete sentences and has been able to tolerate diet well. As such, she is stable to be discharged home on a steroid taper and will follow up with her neurologist after discharge. During her stay here, she will also had an echocardiogram which showed some wall motion abnormalities. Cardiology was consulted and they recommended outpatient management with her primary sheet rock applicator after discharge. Patient's blood pressure has been poorly controlled during her stay here. Lisinopril has been added to her medication regimen and this can be followed by her primary care provider after discharge. A CT scan of her chest also showed compression fractures involving her thoracic spine. Patient already has a follow-up with spine surgery after discharge. Patient has been complaining of abdominal bloating. Abdominal x-ray did not show any signs suggestive of obstruction. Patient had stools in her colon. Improved after she received laxatives. - Time Spent with Patient Total time spent providing and/or coordinating discharge services: Greater than 30 minutes (45 min) - Constitutional Vitals: Temp Pulse Resp BP Pulse Ox 98.1 F 98 20 162/103 97 05/07/16 07:16 05/07/16 07:16 05/07/16 07:16 05/07/16 07:16 05/07/16 07:16 General appearance: Present: cooperative, A&O X 3, pleasant, no acute distress, answers questions appropriately - Respiratory Respiratory exam: Present: decreased breath sounds (Diminished bilaterally), prolonged expiratory phase. Absent: accessory muscle use, rales, rhonchi, wheezes - GI/Abdominal GI/Abdominal exam: Present: normal bowel sounds, soft, no peritoneal signs. Absent: distended, tenderness - Extremities Exam Extremities exam: Present: warm, radial pulses palpable and symetrical. Absent : calf tenderness, cyanotic, pedal edema - Neurological Exam Neurological exam: Present: CN II-XII intact, oriented X3, no focal deficits. Absent: facial droop, speech deficit - VTE Reasons for not Prescribing Prophylaxis: Refused by parent - Attending Attestation This document has been at least partially created by [employer]ign[employer] recognition technology by Dr. Lopez. Errors in grammar, wording or other phrases may exist. If errors are found after the documentation is signed, they will be addressed individually in the addendum section of this document when appropriate.
--- NOTE | 2016-05-07 10:51 | ECHO - Doppler Report ---
Echocardiogram Name: Anuradha Blackburn Date of Study: 05/06/2016 Date: 1945 Ht: 64.0 in Medical Record#: [id number] Age: 70 Wt: 138.0 lb Gender: Female BSA: 1.67 Order #: [id number] Location: [facility] Room #: 2N15 Reading Physician: Lux Tate MD, [facility] Resident Medical Officer: Maria Del Carmen Carrizales RDCS Ordering Physician: Carissa Enriquez MD Primary Physician: Paula Casiano CNP Indications: Shortness of breath Impressions: LVEF 50%. There are regional wall motion abnormalities, see diagram below. Mild left ventricular diastolic dysfunction. Normal right ventricular size and function. No significant valvular dysfunction. Unable to estimate RVSP due to lack of TR jet. Left Ventricular Wall Motion: Rest Echo Findings The basal inferior, basal inferior septal, mid inferior lateral and basal inferior lateral taylor were hypokinetic. All other wall segments showed normal motion. Findings: Study Quality * Technically adequate exam. ECG Findings * Normal sinus rhythm. Left Ventricle * LVEF 50%. There are regional wall motion abnormalities, see diagram below. * Normal LV size and wall thickness. * Mild left ventricular diastolic dysfunction. Right Ventricle * Normal right ventricular size and function. Left Atrium * Normal left atrial size. Right Atrium * Normal right atrial size. Aorta * Normally sized aortic root. Pericardium * There is a trivial pericardial effusion present. IVC * Normal IVC dimensions and inspiratory collapse. Mitral Valve * Mild mitral annular calcification * No mitral stenosis. * Trace mitral regurgitation. Tricuspid Valve * Normal tricuspid valve structure. * No tricuspid stenosis. * Trace tricuspid regurgitation. * Unable to estimate RVSP due to lack of TR jet. Pulmonic Valve * Pulmonic valve is not well visualized. * No pulmonic stenosis. * Trace pulmonic regurgitation. Aortic Valve * Aortic valve not well visualized. Appears mildly sclerotic. * No aortic stenosis. * No aortic regurgitation. History Hypertension Hypercholesteremia Family History of CAD History of CAD/PTCA Myocardial Infarction Congestive Heart Failure 11/24/2015 a Previous Echo was performed. Measurements: BP: 168/ 104 2D Normal Values RVIDd: 2.19 cm IVSd: .95 cm 0.6 - 1.0 cm LVIDd: 4.79 cm 3.7 - 5.6 cm LVPWd: .85 cm 0.6 - 1.1 cm LVIDs: 3.31 cm 1.5 - 3.6 cm AO: 3.00 cm < 4.0 cm %FS: 30.90 cm >25 % LA volume: 23 Mitral Valve Peak E:.98 m/sec Peak A:1.29 m/sec E/A Ratio:0.8 Peak E' Lat Scott:6.71 cm/s Peak E' Med Scott:5.97 cm/s E/E' Lat Ratio:14.6 E/E' Med Ratio:16.4 Updated by Lux Tate MD, [facility] on 05/07/2016 10:45:48 AM electronically signed on 05/07/2016 10:47:03 AM with status of Final Wall Motion [place]: 1=Normal, 2=Hypokinesis, 3=Akinesis, 4=Dyskinesis, 5=Aneurysmal, 6=Hyperkinetic, X=Not Visualized (Blank)=Missing
[2016-05-07] MEDS: Budesonide/Formoterol 160/4.5 MDI IH SCH (11:16)
[2016-05-07] MEDS: Tiotropium 18 MCG inhalation IH SCH (11:16)
[2016-05-07] MEDS: Levofloxacin 500 MG/100 ML 500 MG/100 ML BAG IVPB SCH (13:32)
--- NOTE | 2016-05-07 13:49 | Cardiology Consult Note ---
Date of Encounter: 05/07/16 Time of Encounter: 13:46 Assessment and Plan (1) Coronary artery disease Current Visit: No Status: Chronic Known history of CAD with RCA stent placement in 2008. Previous ND in March 2015. Medical management at that time. Most recent stress test was August 2015 that was negative for ischemia. Echocardiogram completed during this admission for dyspnea. EF low normal at 50- 55%. There was wall motion abnormalities noted. She reports atypical chest pain that is improved from February. Troponin is negative 2. EKG shows no acute ST changes. Currently being treated for COPD exacerbation and tracheomalacia. No indication to proceed with heart catheterization at this time. Recommend close outpatient follow-up with her flight crew time clerk Dr. Greenwood. Continue aspirin, statin, and beta carolynn. She is intolerant to Imdur. Recommend better blood pressure control. Add RIGOBERTO inhibitor. Qualifiers: Coronary Disease-Associated Artery/Lesion type: [place] artery [place] vs. transplanted heart: [place] heart Associated angina: without angina Qualified Code(s): I25.10 - Atherosclerotic heart disease of [place] coronary artery without angina pectoris (2) COPD exacerbation Current Visit: Yes Status: Acute Follows with pulmonology on home O2. Complicated d/t tracheomalacia. Discussion w patient/family: The assessment and plan as outlined above was discussed with the patient and/or family members who expressed understanding and agreement. All questions were answered. Thank you for involving us in the care of your patient. Please call with any questions. History of Present Illness Consult date: 05/07/16 Requesting physician: Maria Teresa Lopez Chief complaint: SOB, Stridor History of present illness: Ms. Blackburn is a 70 year old female with severe COPD on home O2, tracheomalacia, CAD s/p PCI to her RCA in 2008, and GERD who presented with SOB. She states, "I felt like I couldn't get any air out." She was found to have stridor and treated with epinephrine and solumedrol. She was admitted and being treated for COPD exacerbation. Cardiology consulted for abnormal echocardiogram. She describes a chronic chest pain that has improved since last February. Reports "twinges" of pain under her left breast that occur at rest and last only a few seconds. She was having pain daily in February. Pain only occurs once to twice a week now. Hospital admission at [facility] in February 2016 for chest pain.Declines cardiac testing at that time. Prior to that, in November 2015 she was seen for chest pain and [facility] was offered d/t mild tropoinin and wall motion abnormalities on echo. She declined at that time. Last stress test in August 2015 was negative for ischemia. Past Med Surg Social Fam HX - Past Medical History Medical history: asthma, cancer, cardiomyopathy, CHF, COPD, coronary artery disease, GERD, hyperlipidemia, hypertension, myocardial infarction, osteoporosis , pulmonary embolus, other Psychiatric history: anxiety, depression - Past Surgical History Surgical History: angioplasty/stent, cancer surgery, cataract, cholecystectomy, sinus surgery - Social History Smoking Status: Former smoker Smokeless Tobacco Status: No Alcohol use: none Drug use: none - Family History Son Living Status: Still Living Hx Family GI Disorders: Yes Mother Living Status: Hx Family Cancer: Yes (Uterine) Sister Living Status: Still Living Hx Family Cardiac Disorders: Yes (Cerebrovascular accident) Hx Family Respiratory Disorders: No Hx Family Cancer: No Hx Family GI Disorders: No Hx Family Endocrine Disorder: No Hx Family Neuromuscular Disorders: No Hx Family Neurologic Disorders: No Hx Family HEENT Disorders: No Hx Family Autoimmune Disorders: No Daughter Living Status: Still Living Hx Family Cardiac Disorders: Yes (stent) Hx Family Respiratory Disorders: Yes (copd, allergies,) Hx Family Cancer: No Hx Family GI Disorders: No Hx Family Endocrine Disorder: No Hx Family Neuromuscular Disorders: No Hx Family Neurologic Disorders: No Hx Family HEENT Disorders: No Hx Family Autoimmune Disorders: No Brother Family Member Ethnicity: Non- Living Status: Still Living Hx Family Cardiac Disorders: Yes (Coronary artery disease) Hx Family Respiratory Disorders: No Hx Family Cancer: No Hx Family GI Disorders: No Hx Family Endocrine Disorder: Yes (TYPE 2 DIABETES MELLITUS) Hx Family Neuromuscular Disorders: No Hx Family Neurologic Disorders: No Hx Family HEENT Disorders: No Hx Family Autoimmune Disorders: No Father Living Status: Hx Family Cardiac Disorders: Yes (Coronary artery disease) Hx Family Respiratory Disorders: No Hx Family Cancer: Yes (Bladder) Hx Family GI Disorders: No Hx Family Endocrine Disorder: No Hx Family Neuromuscular Disorders: No Hx Family Neurologic Disorders: No Hx Family HEENT Disorders: No Hx Family Autoimmune Disorders: No Medications and Allergies Budesonide/Formoterol 160/4.5 [Symbicort] 2 puff IH BID 12/19/14 [History] Docusate [Colace] 100 mg PO BID 12/19/14 [History] Oxygen 2.5 l NS AD 05/17/15 [History] Zaleplon [Sonata] 5 mg PO HS PRN 07/26/15 [History] Nitroglycerin [Nitrostat] 0.4 mg SL Q5M PRN 11/22/15 [History] Acetaminophen [Tylenol] 1,000 mg PO Q6HR PRN 12/20/15 [History] Albuterol Sulfate [Proair Hfa] 2 puff IH Q4H PRN #0 12/20/15 [History] Ergocalciferol (VITAMIN D2) [Vitamin D2 (50,000 UNIT)] 50,000 unit PO FR [History] Albuterol Neb [Proventil Neb] 2.5 mg IH QID 01/04/16 [History] Alprazolam [Xanax 0.25 MG Tablet] 0.25 mg PO TID PRN 01/04/16 [History] Alprazolam [Xanax 0.5 MG Tablet] 0.5 mg PO HS PRN 01/04/16 [History] Tiotropium [Spiriva] 18 mcg IH 0800 01/04/16 [History] HYDROcodone/Acet 5/325 mg [[place] 5-325 mg] 1 tab PO TID PRN 02/26/16 [History] Ondansetron ODT [Zofran ODT] 4 mg SL Q8HR PRN 02/26/16 [History] Bisacodyl [Dulcolax] 10 mg RC DAILY PRN 05/03/16 [History] Fluticasone Propionate Nasal [Flonase] 50 mcg NS HS 05/03/16 [History] L. Acidophilus/Pectin, [place] [Acidophilus Probiotic Capsule] 1 each PO DAILY [History] Lactulose 20 gm PO DAILY PRN 05/03/16 [History] Metoprolol [Lopressor] 12.5 mg PO BID 05/03/16 [History] Multivitamin QAM 05/03/16 [History] Omeprazole [PriLOSEC] 40 mg PO DAILY 05/03/16 [History] Allergies acetylcysteine Allergy (Severe, Verified 02/26/16 09:32) Anaphylaxis Iodinated Contrast Media - Oral and [Iodinated Contrast Media - IV Dye] Allergy (Verified 02/26/16 09:32) See Comments ramelteon [From Rozerem] Allergy (Verified 02/26/16 09:32) Difficulty Breathing Amoxicillin [From Augmentin] Adverse Reaction (Intermediate, Verified 02/26/16 09:32) Nausea azithromycin [From Zithromax] Adverse Reaction (Intermediate, Verified 02/26/16 09:32) Nausea clavulanic acid [From Augmentin] Adverse Reaction (Intermediate, Verified 09:32) Nausea dexlansoprazole [From Dexilant] Adverse Reaction (Mild, Verified 02/26/16 09:32) Headache Itching prednisone Adverse Reaction (Mild, Verified 02/26/16 09:32) See Comments Patient states high doses for long periods of time make her mind go crazy. sertraline [From Zoloft] Adverse Reaction (Mild, Verified 02/26/16 09:32) Depression Tetracycline Adverse Reaction (Mild, Verified 02/26/16 09:32) Nausea Varenicline [From Chantix] Adverse Reaction (Mild, Verified 02/26/16 09:32) Nightmare All Systems Review: A 10-system review of systems was performed and is negative for pertinent findings except as documented above in the HPI. Physical Examination Vital Signs Temp Pulse Resp BP Pulse Ox 05/07/16 07:16 98.1 F 98 20 162/103 97 05/07/16 04:44 16 96 05/07/16 04:33 98.2 F 94 24 147/103 98 05/07/16 00:30 98.1 F 87 22 163/100 95 05/06/16 21:09 17 96 05/06/16 19:41 98.2 F 92 20 162/97 96 05/06/16 17:30 89 05/06/16 16:09 97.8 F 86 18 168/104 99 Intake and Output 05/06/16 05/07/16 05/07/16 23:59 07:59 15:59 Intake Total 650 / 650 475 / 475 240 / 240 Output Total 650 / 650 2350 / 2350 Balance 0 / 0 -1875 / -1875 240 / 240 Intake: Oral 650 / 650 475 / 475 240 / 240 Output: Urine 650 / 650 2350 / 2350 Other: Meal Dinner Lunch Percent of Meal Consumed 70% 60% Weight 63.5 kg Patient Weight 05/07/16 23:59 Weight 63.5 kg General: Conversant, No Apparent Distress HEENT: Atraumatic, Normocephaly, Mucus Membranes Moist Neck: No JVD, Normal carotid pulses Cardiac: Reg Rate and Rhythm, Normal S1 and S2, No Murmur, Other (ST on telemetry) Lungs: Other (Respirations appear to be labored at rest, expiratory wheezes) Neuro: Alert and responsive, No focal deficits noted Abdomen: Soft, Non-Tender Skin: No rashes noted on visualized skin Musculoskeletal: No Chest Wall Tenderness Extremities: No Clubbing, No Cyanosis, No Edema, Normal Pulses Results 05/04/16 02:52 05/06/16 13:33 Lab Results 05/06/16 13:33 Sodium 135 L Potassium 3.8 Chloride 98 Carbon Dioxide 28 BUN 13 Creatinine 0.64 Glucose 130 H Calcium 9.1 - Imaging and Cardiology Echo: report reviewed (EF 50% RWMA noted. Mild diastolic dysfunction. No significant valvular disease. Wall motion abnormalities noted: hypokenesis in the basal inferior, basal inferior septal, mid inferior lateral, and basal inferior lateral taylor.) - EKG Interpretation EKG results cardiology: personally reviewed (Sinus tachycardia, heart rate 118 bpm, no acute ST changes.) Consult Discharge Plan - Plan Instructions: Chronic Obstructive Pulmonary Disease (DC), Chronic Hypertension (DC) Additional Instructions: Follow-up with spine surgeon and retail stocker as scheduled Referrals: Paula Casiano CNP [Primary Care Provider] - 05/10/16 1:30 pm () Paramjit Ernandez MD [Partnered Physician] - 05/15/16 1:15 pm Davi Moscoso MD [Partnered Physician] - 05/14/16 10:30 am
[2016-05-07] MEDS: Ondansetron 4 MG/2 ML VIAL IVP PRN (14:38)
[2016-05-07 14:43] VITALS: BP 151/111
--- NOTE | 2016-05-07 15:13 | Physician Discharge Referral ---
Home Health/Hosp Referral Info Transfer to: Home Health Provider in Charge Post Discharge: PCP - Diagnosis (1) COPD exacerbation Priority: Primary Status: Acute (2) Hyperkalemia Priority: Secondary Status: Resolved (3) Debility Priority: Secondary Status: Chronic (4) Hypertension Priority: Secondary Status: Chronic (5) Tracheobronchomalacia Priority: Secondary Status: Chronic (6) Abdominal bloating Priority: Secondary Status: Acute (7) Anxiety Priority: Secondary Status: Chronic (8) CAD (coronary artery disease) Priority: Secondary Status: Chronic - Respiratory Orders Oxygen / L per min (2.5) Smoking Cessation: Smoking cessation has been advised. For more information, call the [place] Tobacco Quit Line at 4-875-QOMU-NOW. - Diet/Nutrition Diet/Nutrition Orders: Cardiac - Activity Activity Orders: Walker - Services Needed Following services are medically necessary services: Nursing, Home Health Aide, Physical Therapy, Occupational Therapy - Transfer Medications Prescriptions: Mag Hydrox/Al Hydrox/Simeth [Maalox] 15 ml PO Q6HR PRN #500 ml PRN Reason: Dyspepsia Lactulose 20 gm PO DAILY PRN #500 ml PRN Reason: Constipation Lisinopril [Zestril] 5 mg PO DAILY #30 tablet PredniSONE 10 mg PO DAILY 12 Days Home Medications: Budesonide/Formoterol 160/4.5 [Symbicort] 2 puff IH BID 12/19/14 [History] Docusate [Colace] 100 mg PO BID 12/19/14 [History] Oxygen 2.5 l NS AD 05/17/15 [History] Zaleplon [Sonata] 5 mg PO HS PRN 07/26/15 [History] Nitroglycerin [Nitrostat] 0.4 mg SL Q5M PRN 11/22/15 [History] Acetaminophen [Tylenol] 1,000 mg PO Q6HR PRN 12/20/15 [History] Albuterol Sulfate [Proair Hfa] 2 puff IH Q4H PRN #0 12/20/15 [History] Ergocalciferol (VITAMIN D2) [Vitamin D2 (50,000 UNIT)] 50,000 unit PO FR [History] Albuterol Neb [Proventil Neb] 2.5 mg IH QID 01/04/16 [History] Alprazolam [Xanax 0.25 MG Tablet] 0.25 mg PO TID PRN 01/04/16 [History] Alprazolam [Xanax 0.5 MG Tablet] 0.5 mg PO HS PRN 01/04/16 [History] Tiotropium [Spiriva] 18 mcg IH 0800 01/04/16 [History] HYDROcodone/Acet 5/325 mg [[place] 5-325 mg] 1 tab PO TID PRN 02/26/16 [History] Ondansetron ODT [Zofran ODT] 4 mg SL Q8HR PRN 02/26/16 [History] Bisacodyl [Dulcolax] 10 mg RC DAILY PRN 05/03/16 [History] Fluticasone Propionate Nasal [Flonase] 50 mcg NS HS 05/03/16 [History] L. Acidophilus/Pectin, [place] [Acidophilus Probiotic Capsule] 1 each PO DAILY [History] Metoprolol [Lopressor] 12.5 mg PO BID 05/03/16 [History] Multivitamin QAM 05/03/16 [History] Omeprazole [PriLOSEC] 40 mg PO DAILY 05/03/16 [History] Lactulose 20 gm PO DAILY PRN #500 ml 05/07/16 [Rx] Lisinopril [Zestril] 5 mg PO DAILY #30 tablet 05/07/16 [Rx] Mag Hydrox/Al Hydrox/Simeth [Maalox] 15 ml PO Q6HR PRN #500 ml 05/07/16 [Rx] PredniSONE 10 mg PO DAILY 12 Days 05/07/16 [Rx] Allergies/Adverse Reactions: Allergies acetylcysteine Allergy (Severe, Verified 02/26/16 09:32) Anaphylaxis Iodinated Contrast Media - Oral and [Iodinated Contrast Media - IV Dye] Allergy (Verified 02/26/16 09:32) See Comments ramelteon [From Rozerem] Allergy (Verified 02/26/16 09:32) Difficulty Breathing Amoxicillin [From Augmentin] Adverse Reaction (Intermediate, Verified 02/26/16 09:32) Nausea azithromycin [From Zithromax] Adverse Reaction (Intermediate, Verified 02/26/16 09:32) Nausea clavulanic acid [From Augmentin] Adverse Reaction (Intermediate, Verified 09:32) Nausea dexlansoprazole [From Dexilant] Adverse Reaction (Mild, Verified 02/26/16 09:32) Headache Itching prednisone Adverse Reaction (Mild, Verified 02/26/16 09:32) See Comments Patient states high doses for long periods of time make her mind go crazy. sertraline [From Zoloft] Adverse Reaction (Mild, Verified 02/26/16 09:32) Depression Tetracycline Adverse Reaction (Mild, Verified 02/26/16 09:32) Nausea Varenicline [From Chantix] Adverse Reaction (Mild, Verified 02/26/16 09:32) Nightmare Certification: Further, I certify that my clinical findings support that this patient is homebound (i.e. absences from home require considerable and taxing effort and are for medical reasons or muslim services or infrequently or short duration when for other reasons) because: Homebound Reason: Patient requires assistance of a person or device to safely leave home, Severity of cardiac or pulmonary status limits activity tolerance Attestation: My signature below is to certify that this patient is under my care and that I, or nurse practitioner, or a physician's human services assistant working with me, has a face-to -face encounter with this patient.
== END 2016-05-07 16:26 | disposition home health service (06) | DRG 191 ==
LOC: EMEROO 18:45 → 2NNU 18:45 → SUATTDRO 05-06 12:47
PROVIDERS: ADMIT Family Medicine; ATTEND Internal Medicine

== ENCOUNTER 2016-11-17 14:24 | Inpatient (IN) ==
[2016-11-17] MEDS ORDERED: methylPREDNISolone 125 MG/2 ML VIAL IVP ONE (14:30)
[2016-11-17] MEDS ORDERED: Ipratropium/Albuterol Neb 3 ML IH ONE (14:30)
--- NOTE | 2016-11-17 14:34 | Emergency Department Note ---
Disposition Clinical Impression: COPD exacerbation Disposition: Admitted As Inpatient Condition: Fair Time of Disposition: 16:23 SOB HPI - General Chief Complaint: ED Shortness of Breath/Dyspnea Stated Complaint: VERO Time Seen by Provider: 11/17/16 14:29 Source: patient, EMS Limitations: no limitations Nursing Notes Reviewed: Yes Vital Signs Reviewed: Yes - History of Present Illness 71-year-old who comes in with increasing shortness of breath over the last several days. Review of records show that she has advanced COPD based on diagnosis of pulmonology. Patient has had a cough does not think she is running a fever. Pt Subjective Complaint: shortness of breath Onset (ago): day(s) Context: recent illness (Nasal drip) Severity: moderate Consistency/Duration: constant Improves with: nothing Worsens with: exertion Known history of: COPD Associated symptoms: Reports: cough, wheezing Treatment prior to arrival: none Cough Description: Involuntary Cough Frequency: Intermittent - Related Data Home Medications Medication Instructions Recorded Confirmed Budesonide/Formoterol 160/4.5 2 puff IH BID 12/19/14 05/03/16 [Symbicort] Docusate [Colace] 100 mg PO BID 12/19/14 05/03/16 Oxygen 2.5 l NS AD 05/17/15 05/03/16 Zaleplon [Sonata] 5 mg PO HS PRN 07/26/15 05/03/16 Nitroglycerin [Nitrostat] 0.4 mg SL Q5M PRN 11/22/15 05/03/16 Acetaminophen [Tylenol] 1,000 mg PO Q6HR PRN 12/20/15 05/03/16 Albuterol Sulfate [Proair Hfa] 2 puff IH Q4H PRN #0 12/20/15 05/03/16 Ergocalciferol (VITAMIN D2) 50,000 unit PO FR 12/20/15 05/03/16 [Vitamin D2 (50,000 UNIT)] ALPRAZolam [Xanax 0.25 MG Tablet] 0.25 mg PO TID PRN 01/04/16 05/03/16 ALPRAZolam [Xanax 0.5 MG Tablet] 0.5 mg PO HS PRN 01/04/16 05/03/16 Albuterol Neb [Proventil Neb] 2.5 mg IH QID 01/04/16 05/03/16 Tiotropium [Spiriva] 18 mcg IH 0800 01/04/16 05/03/16 HYDROcodone/Acet 5/325 mg [[place] 1 tab PO TID PRN 02/26/16 05/03/16 5-325 mg] Ondansetron ODT [Zofran ODT] 4 mg SL Q8HR PRN 02/26/16 05/03/16 Bisacodyl [Dulcolax] 10 mg RC DAILY PRN 05/03/16 05/03/16 Fluticasone Propionate Nasal 50 mcg NS HS 05/03/16 05/03/16 [Flonase] L. Acidophilus/Pectin, [place] 1 each PO DAILY 05/03/16 05/03/16 [Acidophilus Probiotic Capsule] Metoprolol [Lopressor] 12.5 mg PO BID 05/03/16 05/03/16 Multivitamin QAM 05/03/16 Omeprazole [PriLOSEC] 40 mg PO DAILY 05/03/16 05/03/16 Previous Rx's Medication Instructions Recorded Lactulose 20 gm PO DAILY PRN #500 ml 05/07/16 Lisinopril [Zestril] 5 mg PO DAILY #30 tablet 05/07/16 Mag Hydrox/Al Hydrox/Simeth 15 ml PO Q6HR PRN #500 ml 05/07/16 [Maalox] predniSONE [PredniSONE] 10 mg PO DAILY 12 Days 05/07/16 Allergies Allergy/AdvReac Type Severity Reaction Status Date / Time acetylcysteine Allergy Severe Anaphylaxis Verified 02/26/16 09:32 Iodinated Contrast- Oral and Allergy See Verified 02/26/16 09:32 IV Dye Comments [Iodinated Contrast Media - IV Dye] ramelteon [From Rozerem] Allergy Difficulty Verified 02/26/16 09:32 Breathing Amoxicillin [From Augmentin] AdvReac Intermediate Nausea Verified 02/26/16 09:32 azithromycin [From Zithromax] AdvReac Intermediate Nausea Verified 02/26/16 09: 32 clavulanic acid AdvReac Intermediate Nausea Verified 02/26/16 09:32 [From Augmentin] dexlansoprazole AdvReac Mild Headache Verified 02/26/16 09:32 [From Dexilant] prednisone AdvReac Mild See Verified 02/26/16 09:32 Comments sertraline [From Zoloft] AdvReac Mild Depression Verified 02/26/16 09:32 Tetracycline AdvReac Mild Nausea Verified 02/26/16 09:32 Varenicline [From Chantix] AdvReac Mild Nightmare Verified 02/26/16 09:32 All systems ED: reviewed and negative except as stated. Constitutional: Denies: fever, chills, weakness, weight change Eyes: Denies: eye pain, eye discharge, vision change ENT ED: Denies: ear pain, throat pain, dental pain, hearing loss, epistaxis, congestion, dysphagia Cardiovascular: Denies: chest pain, palpitations, dyspnea on exertion, edema, syncope Respiratory: Reports: cough, dyspnea, wheezes. Denies: hemoptysis, stridor Gastrointestinal: Denies: abdominal pain, nausea, vomiting, diarrhea, constipation, hematemesis, melena, hematochezia Genitourinary: Denies: dysuria, frequency, hematuria, discharge Musculoskeletal: Denies: back pain, neck pain, arthralgia, myalgia Integumentary: Denies: rash, abrasion, lesions Neurological: Denies: headache, weakness, numbness, paresthesias, confusion, abnormal gait, vertigo Psychiatric: Denies: anxiety, depression, suicidal thoughts, homicidal thoughts , auditory hallucinations, visual hallucinations Endocrine: Denies: fatigue Hematological/Lymphatic: Denies: easy bleeding, easy bruising Allergic/Immunologic: Denies: facial swelling, urticaria Past Medical History - Past Medical History Medical history: Reports: asthma, cancer, cardiomyopathy, CHF, COPD, coronary artery disease, GERD, hyperlipidemia, hypertension, myocardial infarction, osteoporosis, pulmonary embolus, other Surgical history: Reports: angioplasty/stent, cancer surgery, cataract, cholecystectomy, sinus surgery Psychiatric history: Reports: anxiety, depression SOCIAL PROBLEMS SPECIALIST history: Reports: other - Social History Smoking Status: Former smoker Smokeless Tobacco Status: No Alcohol use: Reports: none Drug use: Reports: none Physical Exam - General Limitations: no limitations General appearance: alert - Head Head exam: atraumatic, normocephalic, normal inspection - Eye Eye exam: Present: normal appearance, PERRL, EOMI - ENT ENT exam: normal exam, normal oropharynx, mucous membranes moist - Neck Neck exam: Present: normal inspection, full ROM, trachea midline - Chest Chest inspection: Present: normal inspection, symmetric chest wall rise - Respiratory Respiratory exam: Present: wheezes - Cardiovascular Cardiovascular exam: Present: regular rate, normal rhythm, normal heart sounds - Abdominal Exam Abdominal exam: Present: soft, Non-Tender. Absent: tenderness, distention, guarding, rebound, rigidity - Extremities Exam Extremities exam: Present: normal inspection, full ROM. Absent: tenderness, pedal edema - Expanded Lower Extremity Exam Neurovascular/Tendon exam: Absent: motor deficit, sensory deficit, tendon deficit Gait: not tested/not observed - Back Exam Back exam: Present: normal inspection, full ROM. Absent: tenderness - Neurological Exam Neurological exam: Present: alert, oriented X3 - Psychiatric Psychiatric exam: Present: normal affect, normal mood - Skin Skin exam: Present: warm, dry, intact, normal color Course - Reevaluation(s) Reevaluation #1: 71-year-old who has a history COPD comes in with increasing shortness of breath of last several days. Given treatments with continued symptoms although somewhat improved. Her cardiac workup here is negative chest x-rays negative for acute pneumonia. Patient will be admitted for further evaluation and treatment. Time: 16:21 - Consultations Consultation #1: Discussed with , admit. Time: 16:22 Vital Signs Temperature 99.4 F 11/17/16 14:25 Pulse Rate 97 11/17/16 14:25 Respiratory Rate 24 11/17/16 14:25 Blood Pressure 169/96 11/17/16 14:25 O2 Sat by Pulse Oximetry 97 11/17/16 14:25 Temperature 99.4 F 11/17/16 14:25 Pulse Rate 100 11/17/16 15:55 Respiratory Rate 18 11/17/16 15:55 Blood Pressure 139/93 11/17/16 15:55 O2 Sat by Pulse Oximetry 97 11/17/16 15:55 Oxygen Delivery Oxygen Delivery Nasal Cannula Shortness of Breath/Dyspnea - Lab Data Result diagrams: 11/17/16 14:46 11/17/16 14:46 Lab Results 11/17/16 11/17/16 11/17/16 Range/Units 14:46 14:46 14:46 WBC 7.9 (4.3-11.1) K/mcL RBC 4.28 (3.82-4.97) M/mcL Hgb 13.0 (11.5-15.4) g/dL Hct 38.8 (35.3-44.9) % MCV 90.7 (83.0-100.0) fL MCH 30.4 (28.0-33.3) pg MCHC 33.5 (31.6-35.5) g/dL RDW 12.6 (11.5-14.5) % Plt Count 370 (140-400) K/mcL MPV 8.2 L (9.4-12.4) fL Immature Gran % 0.4 (0-4) % Seg Neutrophils % 66.4 % Lymphocytes % 19.6 % Monocytes % 10.7 % Eosinophils % 2.3 % Basophils % 0.6 % Neutrophils # 5.3 (1.6-8.9) K/mcL Lymphocytes # 1.6 (0.6-4.6) K/mcL Monocytes # 0.9 (0.0-1.3) K/mcL Eosinophils # 0.2 (0.0-0.6) K/mcL Basophils # 0.1 (0.0-0.2) K/mcL Sodium 132 L (136-145) mEq/L Potassium 4.2 (3.5-4.5) mEq/L Chloride 96 L (98-109) mEq/L Carbon Dioxide 29 (19-29) mEq/L BUN 11 (7-20) mg/dL Creatinine 0.62 (0.57-1.11) mg/dL Est GFR ( Amer) > 60 (> 60) Est GFR (Non-Af Amer) > 60 (> 60) BUN/Creatinine Ratio 18 (6-26) Glucose 128 H (70-99) mg/dL Calculated Osmolality 275 L (280-300) Lactic Acid 1.9 (0.5-2.2) mmol/L Calcium 9.7 (8.6-10.8) mg/dL Troponin I (0-0.03) ng/mL B-Natriuretic Peptide (0-100) pg/mL Urine Color (Yellow) Urine Clarity (Clear) Urine pH (5.0-8.0) pH Units Ur Specific [place] (1.010-1.025) Urine Protein (Neg-Trace) mg/dL Urine Glucose (UA) (Normal) mg/dL Urine Ketones (Negative) mg/dL Urine Blood (Negative) Urine Nitrite (Negative) Urine Bilirubin (Negative) Urine Urobilinogen (Normal) mg/dL Ur Leukocyte Esterase (Negative) Ur Culture Indicated? (NO) 11/17/16 11/17/16 11/17/16 Range/Units 14:46 14:46 15:30 WBC (4.3-11.1) K/mcL RBC (3.82-4.97) M/mcL Hgb (11.5-15.4) g/dL Hct (35.3-44.9) % MCV (83.0-100.0) fL MCH (28.0-33.3) pg MCHC (31.6-35.5) g/dL RDW (11.5-14.5) % Plt Count (140-400) K/mcL MPV (9.4-12.4) fL Immature Gran % (0-4) % Seg Neutrophils % % Lymphocytes % % Monocytes % % Eosinophils % % Basophils % % Neutrophils # (1.6-8.9) K/mcL Lymphocytes # (0.6-4.6) K/mcL Monocytes # (0.0-1.3) K/mcL Eosinophils # (0.0-0.6) K/mcL Basophils # (0.0-0.2) K/mcL Sodium (136-145) mEq/L Potassium (3.5-4.5) mEq/L Chloride (98-109) mEq/L Carbon Dioxide (19-29) mEq/L BUN (7-20) mg/dL Creatinine (0.57-1.11) mg/dL Est GFR ( Amer) (> 60) Est GFR (Non-Af Amer) (> 60) BUN/Creatinine Ratio (6-26) Glucose (70-99) mg/dL Calculated Osmolality (280-300) Lactic Acid (0.5-2.2) mmol/L Calcium (8.6-10.8) mg/dL Troponin I 0.01 (0-0.03) ng/mL B-Natriuretic Peptide 113 H (0-100) pg/mL Urine Color Yellow (Yellow) Urine Clarity Clear (Clear) Urine pH 7.0 (5.0-8.0) pH Units Ur Specific [place] 1.013 (1.010-1.025) Urine Protein Negative (Neg-Trace) mg/dL Urine Glucose (UA) Normal (Normal) mg/dL Urine Ketones Negative (Negative) mg/dL Urine Blood Negative (Negative) Urine Nitrite Negative (Negative) Urine Bilirubin Negative (Negative) Urine Urobilinogen Normal (Normal) mg/dL Ur Leukocyte Esterase Negative (Negative) Ur Culture Indicated? NO (NO) - EKG Data EKG attestation: Yes I reviewed and interpreted this EKG. EKG shows normal: Reports: sinus rhythm Rate: Reports: normal Rhythm: Reports: NSR Interpretation: Reports: no acute changes
[2016-11-17 14:56] LABS: Basophils # 0.1 K/mcL (0.0-0.2); Basophils % 0.6 %; Eosinophils # 0.2 K/mcL (0.0-0.6); Eosinophils % 2.3 %; Hematocrit 38.8 % (35.3-44.9); Immature Granulocytes % 0.4 % (0-4); Lymphocytes # 1.6 K/mcL (0.6-4.6); Lymphocytes % 19.6 %; Mean Corpuscular HGB Conc 33.5 g/dL (31.6-35.5); Mean Corpuscular Hemoglobin 30.4 pg (28.0-33.3); Mean Corpuscular Volume 90.7 fL (83.0-100.0); Mean Platelet Volume 8.2 fL (9.4-12.4); Monocytes # 0.9 K/mcL (0.0-1.3); Monocytes % 10.7 %; Neutrophils # 5.3 K/mcL (1.6-8.9); Platelet Count 370 K/mcL (140-400); Red Blood Count 4.28 M/mcL (3.82-4.97); Red Cell Distribution Width 12.6 % (11.5-14.5); Segmented Neutrophils % 66.4 %
[2016-11-17 15:09] LABS: BUN/Creatinine Ratio 18 (6-26); Blood Urea Nitrogen 11 mg/dL (7-20); Calcium 9.7 mg/dL (8.6-10.8); Carbon Dioxide 29 mEq/L (19-29); Chloride 96 mEq/L (98-109); Glucose 128 mg/dL (70-99); Osmolality,Calculated 275 (280-300); Potassium 4.2 mEq/L (3.5-4.5); Sodium 132 mEq/L (136-145); eGFR For African Americans > 60 (> 60); eGFR For Non-African Americans > 60 (> 60)
[2016-11-17 15:38] LABS: Bilirubin,Urine Negative (Negative); Blood,Urine Negative (Negative); Clarity,Urine Clear (Clear); Color,Urine Yellow (Yellow); Glucose,Urine (UA) Normal (Normal); Ketones,Urine Negative (Negative); Leukocyte Esterase,Urine Negative (Negative); Nitrite,Urine Negative (Negative); Protein,Urine Negative (Neg-Trace); Specific Gravity,Urine 1.013 (1.010-1.025); Urobilinogen,Urine Normal (Normal)
[2016-11-17] MEDS ORDERED: Ondansetron 4 MG/2 ML VIAL IVP PRN (16:20)
[2016-11-17] MEDS ORDERED: Ondansetron ODT 4 MG TAB.RAPDIS SL PRN (16:20)
[2016-11-17] MEDS ORDERED: Naloxone 0.4 MG/ML INJ IVP PRN (16:20)
[2016-11-17] MEDS ORDERED: *HR* Morphine 2 MG/ML SYRINGE IVP PRN (16:20)
[2016-11-17] MEDS ORDERED: *HR* HYDROcodone/Acet 5/325 mg TABLET PO PRN (16:20)
--- NOTE | 2016-11-17 16:51 | Internal Med History&Physical ---
Date of Encounter: 11/17/16 Time of Encounter: 16:30 Assessment and Plan (1) Acute exacerbation of chronic obstructive pulmonary disease Current visit: No Status: Acute We will admit the patient into [facility] with below mentioned diagnosis her current acute exacerbation could be due to purulent bronchitis, as well as GERD / GI symptoms too at this point will start her on high dose IV steroids Solumedrol 40mg Q6hr Cont duoneb and O2 Keep her head elevated Aspiration precautions (2) Acute bronchitis Current visit: No Status: Acute Seems to be more like a bacterial bronchitis I would start her on empirical antibiotic with the levofloxacin 500 mg daily for 7 days continue symptomatic and supportive care Qualifiers: Bronchitis organism: unspecified organism Qualified Code(s): J20.9 - Acute bronchitis, unspecified (3) Chronic sinusitis with recurrent bronchitis Current visit: No Status: Acute Educated the patient about preventive methods (4) Chronic respiratory failure Current visit: No Status: Chronic Qualifiers: Respiratory failure complication: hypoxia Qualified Code(s): J96.11 - Chronic respiratory failure with hypoxia (5) Vocal cord dysfunction Current visit: No Status: Chronic Continue close follow-up with speech therapist from [facility] (6) GERD (gastroesophageal reflux disease) Current visit: No Status: Chronic We will increase her PPI Prilosec frequency to b.i.d. Qualifiers: Esophagitis presence: esophagitis presence not specified Qualified Code(s) : K21.9 - Gastro-esophageal reflux disease without esophagitis (7) Bloating symptom Current visit: No Status: Acute Started her on Simethicone 80 mg Q 6h as scheduled for now (8) Coronary artery disease Current visit: No Status: Chronic Stable will resume her home medications Qualifiers: Coronary Disease-Associated Artery/Lesion type: [place] artery [place] vs. transplanted heart: [place] heart Associated angina: without angina Qualified Code(s): I25.10 - Atherosclerotic heart disease of [place] coronary artery without angina pectoris (9) Anxiety Current visit: No Status: Chronic Continue home medication Xanax as needed (10) CHF (congestive heart failure) Current visit: No Status: Chronic Stable not in exacerbation resume home meds Qualifiers: Congestive heart failure type: combined Congestive heart failure chronicity : chronic Qualified Code(s): I50.42 - Chronic combined systolic (congestive) and diastolic (congestive) heart failure (11) CAD (coronary artery disease) Current visit: No Status: Chronic Qualifiers: Coronary Disease-Associated Artery/Lesion type: [place] artery [place] vs. transplanted heart: [place] heart Associated angina: without angina Qualified Code(s): I25.10 - Atherosclerotic heart disease of [place] coronary artery without angina pectoris (12) DVT prophylaxis Current visit: No Status: Acute On Lovenox subcutaneous injections Internal Medicine - H&P: HPI Chief complaint: shortness of breath , cough with greenish expectoration Admitted From: Emergency Dept Plans for Post Hospital Care: Home History of present illness: Ms. Blackburn is a 71 year old female with the past medical history of hypertension, hyperlipidemia, CAD, GERD, CHF, chronic hypoxic respiratory failure on home oxygen dependent a 2 L, COPD who presented to the ER complaining about from last couple of months patient has been having on and off BECK and shortness of breath. Also have cough with greenish expectoration which seems to progressive worsening from last one week. She also stated that she has been having some sinusitis for which she did take amoxicillin antibiotic course for one week in August, and also was on the Azithromycin in mid-September. She also stated that she does have chronic bloating, dyspepsia and stomach distention which is also contributing to her COPD exacerbation all the time. Patient stated that she already had all the GI workup including EGD , so far everything was negative. Pt denied of any sick contacts at home Past Med Surg Social Fam HX - Past Medical History Medical history: asthma, cancer, cardiomyopathy, CHF, COPD, coronary artery disease, GERD, hyperlipidemia, hypertension, myocardial infarction, osteoporosis , pulmonary embolus, other Psychiatric history: anxiety, depression - Past Surgical History Surgical History: angioplasty/stent, cancer surgery, cataract, cholecystectomy, sinus surgery - Social History Smoking Status: Former smoker Smokeless Tobacco Status: No Alcohol use: none Drug use: none - Family History Son Living Status: Still Living Hx Family GI Disorders: Yes Mother Living Status: Hx Family Cancer: Yes (Uterine) Sister Living Status: Still Living Hx Family Cardiac Disorders: Yes (Cerebrovascular accident) Hx Family Respiratory Disorders: No Hx Family Cancer: No Hx Family GI Disorders: No Hx Family Endocrine Disorder: No Hx Family Neuromuscular Disorders: No Hx Family Neurologic Disorders: No Hx Family HEENT Disorders: No Hx Family Autoimmune Disorders: No Daughter Living Status: Still Living Hx Family Cardiac Disorders: Yes (stent) Hx Family Respiratory Disorders: Yes (copd, allergies,) Hx Family Cancer: No Hx Family GI Disorders: No Hx Family Endocrine Disorder: No Hx Family Neuromuscular Disorders: No Hx Family Neurologic Disorders: No Hx Family HEENT Disorders: No Hx Family Autoimmune Disorders: No Brother Family Member Ethnicity: Non- Living Status: Still Living Hx Family Cardiac Disorders: Yes (Coronary artery disease) Hx Family Respiratory Disorders: No Hx Family Cancer: No Hx Family GI Disorders: No Hx Family Endocrine Disorder: Yes (TYPE 2 DIABETES MELLITUS) Hx Family Neuromuscular Disorders: No Hx Family Neurologic Disorders: No Hx Family HEENT Disorders: No Hx Family Autoimmune Disorders: No Father Living Status: Hx Family Cardiac Disorders: Yes (Coronary artery disease) Hx Family Respiratory Disorders: No Hx Family Cancer: Yes (Bladder) Hx Family GI Disorders: No Hx Family Endocrine Disorder: No Hx Family Neuromuscular Disorders: No Hx Family Neurologic Disorders: No Hx Family HEENT Disorders: No Hx Family Autoimmune Disorders: No Internal Medicine - H&P: Meds Budesonide/Formoterol 160/4.5 [Symbicort] 2 puff IH BID 12/19/14 [History] Docusate [Colace] 100 mg PO BID 12/19/14 [History] Oxygen 2.5 l NS AD 05/17/15 [History] Zaleplon [Sonata] 5 mg PO HS PRN 07/26/15 [History] Nitroglycerin [Nitrostat] 0.4 mg SL Q5M PRN 11/22/15 [History] Acetaminophen [Tylenol] 1,000 mg PO Q6HR PRN 12/20/15 [History] Albuterol Sulfate [Proair Hfa] 2 puff IH Q4H PRN #0 12/20/15 [History] Ergocalciferol (VITAMIN D2) [Vitamin D2 (50,000 UNIT)] 50,000 unit PO FR [History] ALPRAZolam [Xanax 0.25 MG Tablet] 0.25 mg PO TID PRN 01/04/16 [History] ALPRAZolam [Xanax 0.5 MG Tablet] 0.5 mg PO HS PRN 01/04/16 [History] Albuterol Neb [Proventil Neb] 2.5 mg IH QID 01/04/16 [History] Tiotropium [Spiriva] 18 mcg IH 0800 01/04/16 [History] HYDROcodone/Acet 5/325 mg [[place] 5-325 mg] 1 tab PO TID PRN 02/26/16 [History] Ondansetron ODT [Zofran ODT] 4 mg SL Q8HR PRN 02/26/16 [History] Bisacodyl [Dulcolax] 10 mg RC DAILY PRN 05/03/16 [History] Fluticasone Propionate Nasal [Flonase] 50 mcg NS HS 05/03/16 [History] L. Acidophilus/Pectin, [place] [Acidophilus Probiotic Capsule] 1 each PO DAILY [History] Metoprolol [Lopressor] 12.5 mg PO BID 05/03/16 [History] Omeprazole [PriLOSEC] 40 mg PO DAILY 05/03/16 [History] Albuterol Sulfate [Proair Hfa] 2 puff IH Q4H PRN 11/17/16 [History] Aspirin [Lo-Dose Aspirin EC] 81 mg PO DAILY 11/17/16 [History] Diclofenac Sodium [Voltaren] 1 appl TP QID PRN 11/17/16 [History] Lactulose 30 ml PO DAILY PRN 11/17/16 [History] Mv,Fe,Min/Lutein [A Thru Z [employer]'s Tablet] 1 tab PO DAILY 11/17/16 [ History] Polyethylene Glycol 3350 [MiraLAX] 17 gm PO DAILY 11/17/16 [History] Simethicone [Gas-X] 80 mg PO QID 11/17/16 [History] Allergies acetylcysteine Allergy (Severe, Verified 02/26/16 09:32) Anaphylaxis Iodinated Contrast- Oral and IV Dye [Iodinated Contrast Media - IV Dye] Allergy (Verified 02/26/16 09:32) See Comments ramelteon [From Rozerem] Allergy (Verified 02/26/16 09:32) Difficulty Breathing Amoxicillin [From Augmentin] Adverse Reaction (Intermediate, Verified 02/26/16 09:32) Nausea azithromycin [From Zithromax] Adverse Reaction (Intermediate, Verified 02/26/16 09:32) Nausea clavulanic acid [From Augmentin] Adverse Reaction (Intermediate, Verified 09:32) Nausea dexlansoprazole [From Dexilant] Adverse Reaction (Mild, Verified 02/26/16 09:32) Headache Itching prednisone Adverse Reaction (Mild, Verified 02/26/16 09:32) See Comments Patient states high doses for long periods of time make her mind go crazy. sertraline [From Zoloft] Adverse Reaction (Mild, Verified 02/26/16 09:32) Depression Tetracycline Adverse Reaction (Mild, Verified 02/26/16 09:32) Nausea Varenicline [From Chantix] Adverse Reaction (Mild, Verified 02/26/16 09:32) Nightmare All Systems PM: A 10-system review of systems was performed and is negative for pertinent findings except as documented above in the HPI. Review of systems: All the systems are reviewed everything is benign except the systems and symptoms I mentioned in the history of present illness - Constitutional Vitals: Temp Pulse Resp BP Pulse Ox 99.4 F 100 18 139/93 97 11/17/16 14:25 11/17/16 15:55 11/17/16 15:55 11/17/16 15:55 11/17/16 15:55 General appearance: Present: mild distress (However able to finish. And sentence without having any pause), A&O X 3, answers questions appropriately - Head Head exam: Present: atraumatic, normal inspection - Neck Neck exam general surgery: Present: supple. Absent: lymphadenopathy, thyromegaly - Respiratory Respiratory exam: Present: decreased breath sounds, respiratory distress (Mild respiratory distress), wheezes (Moderate diffuse wheezing), tachypnea. Absent: rales, rhonchi, stridor - Cardiovascular Cardiovascular exam: Present: RRR, +S1, +S2. Absent: diastolic murmur, gallop, systolic murmur - GI/Abdominal GI/Abdominal exam: Present: distended, normal bowel sounds, soft, no peritoneal signs. Absent: firm, guarding, hepatomegaly, rebound, rigid, splenomegaly, tenderness - Extremities Exam Extremities exam: Absent: calf tenderness, pedal edema, tenderness - Neurological Exam Neurological exam: Present: alert, oriented X3 - Psychiatric Psychiatric exam: Present: normal affect, normal mood Internal Med - H&P Results - Labs CBC & Chem 7: 11/17/16 14:46 11/17/16 14:46 Labs: Short CBC 11/17/16 Range/Units 14:46 WBC 7.9 (4.3-11.1) K/mcL Hgb 13.0 (11.5-15.4) g/dL Hct 38.8 (35.3-44.9) % Plt Count 370 (140-400) K/mcL Neutrophils # 5.3 (1.6-8.9) K/mcL BMP 11/17/16 14:46 Sodium 132 L Potassium 4.2 Chloride 96 L Carbon Dioxide 29 BUN 11 Creatinine 0.62 Glucose 128 H Calcium 9.7 Cardiac Enzymes 11/17/16 Range/Units 14:46 Troponin I 0.01 (0-0.03) ng/mL Urine 11/17/16 Range/Units 15:30 Urine Color Yellow (Yellow) Urine Clarity Clear (Clear) Urine pH 7.0 (5.0-8.0) pH Units Ur Specific [place] 1.013 (1.010-1.025) Urine Protein Negative (Neg-Trace) mg/dL Urine Glucose (UA) Normal (Normal) mg/dL - Impressions ITS Impressions Chest X-Ray 11/17/16 14:30 IMPRESSION: No evidence of acute disease. D/ / Marc Cuadra MD / Marc Cuadra MD Interpreting Provider: Marc Cuadra MD - Diagnostic Studies Chest x-ray Status: image reviewed by me (No acute infiltrates/no consolidations noticed.) Additional comments: Poor inspiratory effort noticed
[2016-11-17] MEDS: Ipratropium/Albuterol Neb 3 ML IH SCH ×2 (18:40→19:46)
[2016-11-17] MEDS: Budesonide/Formoterol 160/4.5 MDI IH SCH (19:45)
[2016-11-17] MEDS: Simethicone 80 MG TAB.CHEW PO SCH ×2 (20:02→22:15)
[2016-11-17] MEDS: Levofloxacin 500 MG/100 ML 500 MG/100 ML BAG IVPB SCH (20:05)
[2016-11-17] MEDS: MethylPREDNISolone 40 MG/ML VIAL IVP SCH ×2 (20:06→22:24)
[2016-11-17] MEDS ORDERED: ALPRAZolam 0.5 MG TABLET PO PRN (22:08)
[2016-11-18] MEDS: Ipratropium/Albuterol Neb 3 ML IH SCH ×7 (00:31→23:06)
[2016-11-18] MEDS: *HR* Enoxaparin 40 MG/0.4 ML SYRINGE SQ SCH (05:36)
[2016-11-18] MEDS: MethylPREDNISolone 40 MG/ML VIAL IVP SCH ×2 (05:36→16:39)
[2016-11-18] MEDS: Simethicone 80 MG TAB.CHEW PO SCH ×4 (05:36→21:56)
[2016-11-18 05:52] LABS: Hematocrit 39.7 % (35.3-44.9); Hemoglobin 13.3 g/dL (11.5-15.4); Immature Granulocytes % 0.8 % (0-4); Lymphocytes # 0.5 K/mcL (0.6-4.6); Lymphocytes % 9.1 %; Mean Corpuscular HGB Conc 33.5 g/dL (31.6-35.5); Mean Corpuscular Hemoglobin 30.5 pg (28.0-33.3); Mean Corpuscular Volume 91.1 fL (83.0-100.0); Mean Platelet Volume 8.2 fL (9.4-12.4); Monocytes # 0.1 K/mcL (0.0-1.3); Monocytes % 1.6 %; Neutrophils # 4.5 K/mcL (1.6-8.9); Platelet Count 385 K/mcL (140-400); Red Blood Count 4.36 M/mcL (3.82-4.97); Red Cell Distribution Width 12.5 % (11.5-14.5); Segmented Neutrophils % 88.5 %
[2016-11-18 06:02] LABS: BUN/Creatinine Ratio 14 (6-26); Blood Urea Nitrogen 9 mg/dL (7-20); Calcium 9.6 mg/dL (8.6-10.8); Carbon Dioxide 29 mEq/L (19-29); Chloride 100 mEq/L (98-109); Glucose 161 mg/dL (70-99); Osmolality,Calculated 284 (280-300); Potassium 4.7 mEq/L (3.5-4.5); Sodium 136 mEq/L (136-145); eGFR For African Americans > 60 (> 60); eGFR For Non-African Americans > 60 (> 60)
[2016-11-18] MEDS: Acetaminophen 325 MG TABLET PO PRN ×2 (07:47→14:55)
[2016-11-18] MEDS: Levofloxacin 500 MG/100 ML 500 MG/100 ML BAG IVPB SCH (08:35)
[2016-11-18] MEDS: Budesonide/Formoterol 160/4.5 MDI IH SCH ×2 (09:02→19:55)
--- NOTE | 2016-11-18 09:58 | Internal Med Progress Note ---
Date of Encounter: 11/18/16 Time of Encounter: 09:40 - Assessment and plan (1) Acute exacerbation of chronic obstructive pulmonary disease Current Visit: Yes Status: Acute Assessment and plan: Patient likely has mild acute on chronic bronchitis. Most of her symptoms are related to chronic dyspepsia, chronic sinusitis, tracheomalacia. Continue empiric antibiotics. Taper down IV steroids as tolerated as steroids are possibly detrimental to tracheomalacia. Continue scheduled bronchodilators along with supplemental oxygen, inhaled corticosteroids. She is noted to be on 2 L/m nasal cannula oxygen at home. (2) Tracheomalacia Current Visit: Yes Status: Chronic Assessment and plan: She follows with pulmonology at [facility]. (3) Dyspepsia Current Visit: Yes Status: Chronic Assessment and plan: Patient was evaluated by GI and underwent multiple studies in the past revealing gastroparesis and no other diagnosis. She has tried PPI, Maalox, Zofran, Phenergan which have failed to improve her symptoms. Continue supportive care and Simethicone when necessary. (4) Chronic respiratory failure Current Visit: Yes Status: Chronic Assessment and plan: Due to COPD. Continue supplemental oxygen via nasal cannula. Qualifiers: Respiratory failure complication: hypoxia Qualified Code(s): J96.11 - Chronic respiratory failure with hypoxia (5) CHF (congestive heart failure) Current Visit: Yes Status: Chronic Qualifiers: Congestive heart failure type: combined Congestive heart failure chronicity : chronic Qualified Code(s): I50.42 - Chronic combined systolic (congestive) and diastolic (congestive) heart failure (6) Chronic stridor Current Visit: Yes Status: Chronic (7) CAD (coronary artery disease) Current Visit: Yes Status: Chronic Assessment and plan: Resume home medications. Qualifiers: Coronary Disease-Associated Artery/Lesion type: [place] artery [place] vs. transplanted heart: [place] heart Associated angina: without angina Qualified Code(s): I25.10 - Atherosclerotic heart disease of [place] coronary artery without angina pectoris (8) Hyperlipidemia Current Visit: Yes Status: Chronic Qualifiers: Hyperlipidemia type: unspecified Qualified Code(s): E78.5 - Hyperlipidemia , unspecified (9) Hypertension Current Visit: Yes Status: Chronic Qualifiers: Hypertension type: essential hypertension Qualified Code(s): I10 - Essential (primary) hypertension - Subjective Interval history: Feels short of breath due to abdominal distension, which is an ongoing issue for the patient; she also has tracheomalacia and has some upper airway wheezing ; no nausea, vomiting, diarrhea; - Constitutional Vitals: Temp Pulse Resp BP Pulse Ox 98.2 F 75 18 151/84 94 11/18/16 07:46 11/18/16 07:46 11/18/16 07:46 11/18/16 07:46 11/18/16 07:46 General appearance: Present: A&O X 3, answers questions appropriately - Respiratory Respiratory exam: Present: CTAB (upper airway stridor+). Absent: accessory muscle use, rales, rhonchi, wheezes - Cardiovascular Cardiovascular exam: Present: RRR, +S1, +S2. Absent: diastolic murmur, gallop, rubs, systolic murmur - GI/Abdominal GI/Abdominal exam: Present: distended, normal bowel sounds, soft, no peritoneal signs. Absent: tenderness - Extremities Exam Extremities exam: Present: full ROM, warm, radial pulses palpable and symetrical. Absent: calf tenderness, cyanotic, pedal edema - Neurological Exam Neurological exam: Present: CN II-XII intact, oriented X3, no focal deficits. Absent: pronater drift, facial droop, speech deficit Internal Medicine: Result - Labs CBC & Chem 7: 11/18/16 05:03 11/18/16 05:03 Labs: Short CBC 11/18/16 Range/Units 05:03 WBC 5.0 (4.3-11.1) K/mcL Hgb 13.3 (11.5-15.4) g/dL Hct 39.7 (35.3-44.9) % Plt Count 385 (140-400) K/mcL Neutrophils # 4.5 (1.6-8.9) K/mcL BMP 11/18/16 05:03 Sodium 136 Potassium 4.7 H Chloride 100 Carbon Dioxide 29 BUN 9 Creatinine 0.64 Glucose 161 H Calcium 9.6 Consult Discharge Plan - Plan Referrals: NONE,PCP [Primary Care Provider] -
[2016-11-18] MEDS: ALPRAZolam 0.25 MG TABLET PO PRN (10:31)
--- NOTE | 2016-11-18 17:46 | Electrocardiograph Report ---
[address] [address] Test Date: 2016-11-17 Pat Name: Anuradha Blackburn Department: 105 Room: 3A33 Gender: F Senior Compensation Consultant: PHONG : 1945 Requested By: Edi Fletcher Order Number: [id number] Reading MD: Lana Diez Measurements Intervals [place] Rate: 99 P: 85 TX: 173 QRS: 55 QRSD: 94 T: 77 QT: 333 QTc: 389 Interpretive Statements SINUS RHYTHM Electronically Signed On 11-18-2016 17:45:23 EDT by Lana Diez
[2016-11-19] MEDS: Ipratropium/Albuterol Neb 3 ML IH SCH ×3 (03:54→11:23)
[2016-11-19 04:28] LABS: Basophils % 0.2 %; Hematocrit 40.2 % (35.3-44.9); Hemoglobin 13.7 g/dL (11.5-15.4); Immature Granulocytes % 0.5 % (0-4); Lymphocytes # 0.8 K/mcL (0.6-4.6); Lymphocytes % 6.3 %; Mean Corpuscular HGB Conc 34.1 g/dL (31.6-35.5); Mean Corpuscular Hemoglobin 31.4 pg (28.0-33.3); Mean Platelet Volume 8.3 fL (9.4-12.4); Monocytes % 7.5 %; Platelet Count 374 K/mcL (140-400); Red Blood Count 4.37 M/mcL (3.82-4.97); Red Cell Distribution Width 12.7 % (11.5-14.5); Segmented Neutrophils % 85.5 %
[2016-11-19 04:50] LABS: BUN/Creatinine Ratio 23 (6-26); Blood Urea Nitrogen 16 mg/dL (7-20); Calcium 9.8 mg/dL (8.6-10.8); Carbon Dioxide 31 mEq/L (19-29); Chloride 100 mEq/L (98-109); Glucose 128 mg/dL (70-99); Osmolality,Calculated 289 (280-300); Potassium 4.5 mEq/L (3.5-4.5); Sodium 138 mEq/L (136-145); eGFR For African Americans > 60 (> 60); eGFR For Non-African Americans > 60 (> 60)
[2016-11-19] MEDS: MethylPREDNISolone 40 MG/ML VIAL IVP SCH (06:23)
[2016-11-19] MEDS: *HR* Enoxaparin 40 MG/0.4 ML SYRINGE SQ SCH (06:23)
[2016-11-19] MEDS: ALPRAZolam 0.25 MG TABLET PO PRN (06:23)
[2016-11-19] MEDS: Simethicone 80 MG TAB.CHEW PO SCH ×2 (06:23→09:35)
[2016-11-19] MEDS: Budesonide/Formoterol 160/4.5 MDI IH SCH (07:53)
[2016-11-19] MEDS: Levofloxacin 500 MG/100 ML 500 MG/100 ML BAG IVPB SCH (07:54)
[2016-11-19 10:55] VITALS: BP 111/69
--- NOTE | 2016-11-19 12:30 | Discharge Summary ---
Date of Encounter: 11/19/16 Time of Encounter: 08:10 - Discharge Diagnosis (1) Acute exacerbation of chronic obstructive pulmonary disease Priority: Primary Status: Acute Comments: Acute exacerbation of COPD now improved. (2) Acute bronchitis Priority: Primary Status: Acute Comments: Now improved Qualifiers: Bronchitis organism: unspecified organism Qualified Code(s): J20.9 - Acute bronchitis, unspecified (3) Chronic respiratory failure Priority: Secondary Status: Chronic Qualifiers: Respiratory failure complication: hypoxia Qualified Code(s): J96.11 - Chronic respiratory failure with hypoxia (4) Chronic stridor Priority: Secondary Status: Chronic (5) CAD (coronary artery disease) Priority: Secondary Status: Chronic Qualifiers: Coronary Disease-Associated Artery/Lesion type: [place] artery [place] vs. transplanted heart: [place] heart Associated angina: without angina Qualified Code(s): I25.10 - Atherosclerotic heart disease of [place] coronary artery without angina pectoris (6) Tracheomalacia Priority: Secondary Status: Chronic Comments: Follows up with yeast cake cutter at [facility] (7) Dyspepsia Priority: Primary Status: Chronic Comments: Continue current medications including Simethicone and Prilosec - Discharge Medications Prescriptions: Levofloxacin [Levaquin] 500 mg PO DAILY 7 Days methylPREDNISolone [Medrol] 4 mg PO DAILY 5 Days Omeprazole [PriLOSEC] 20 mg PO BID #60 Simethicone [Gas-X] 80 mg PO QID 30 Days Home Medications: Budesonide/Formoterol 160/4.5 [Symbicort] 2 puff IH BID 12/19/14 [History] Docusate [Colace] 100 mg PO BID 12/19/14 [History] Oxygen 2.5 l NS AD 05/17/15 [History] Zaleplon [Sonata] 5 mg PO HS PRN 07/26/15 [History] Nitroglycerin [Nitrostat] 0.4 mg SL Q5M PRN 11/22/15 [History] Acetaminophen [Tylenol] 1,000 mg PO Q6HR PRN 12/20/15 [History] Albuterol Sulfate [Proair Hfa] 2 puff IH Q4H PRN #0 12/20/15 [History] Ergocalciferol (VITAMIN D2) [Vitamin D2 (50,000 UNIT)] 50,000 unit PO FR [History] ALPRAZolam [Xanax 0.25 MG Tablet] 0.25 mg PO TID PRN 01/04/16 [History] Albuterol Neb [Proventil Neb] 2.5 mg IH QID 01/04/16 [History] Tiotropium [Spiriva] 18 mcg IH 0800 01/04/16 [History] HYDROcodone/Acet 5/325 mg [[place] 5-325 mg] 1 tab PO TID PRN 02/26/16 [History] Ondansetron ODT [Zofran ODT] 4 mg SL Q8HR PRN 02/26/16 [History] Bisacodyl [Dulcolax] 10 mg RC DAILY PRN 05/03/16 [History] Fluticasone Propionate Nasal [Flonase] 1 spr NS HS 05/03/16 [History] L. Acidophilus/Pectin, [place] [Acidophilus Probiotic Capsule] 1 each PO DAILY [History] Metoprolol [Lopressor] 12.5 mg PO BID 05/03/16 [History] Albuterol Sulfate [Proair Hfa] 2 puff IH Q4H PRN 11/17/16 [History] Aspirin [Lo-Dose Aspirin EC] 81 mg PO DAILY 11/17/16 [History] Diclofenac Sodium [Voltaren] 1 appl TP QID PRN 11/17/16 [History] Lactulose 30 ml PO DAILY PRN 11/17/16 [History] Mv,Fe,Min/Lutein [A Thru Z [employer] Women's Tablet] 1 tab PO DAILY 11/17/16 [ History] Polyethylene Glycol 3350 [MiraLAX] 17 gm PO DAILY 11/17/16 [History] Levofloxacin [Levaquin] 500 mg PO DAILY 7 Days 11/19/16 [Rx] Omeprazole [PriLOSEC] 20 mg PO BID #60 11/19/16 [Rx] Simethicone [Gas-X] 80 mg PO QID 30 Days 11/19/16 [Rx] methylPREDNISolone [Medrol] 4 mg PO DAILY 5 Days 11/19/16 [Rx] Allergies/Adverse Reactions: Allergies acetylcysteine Allergy (Severe, Verified 02/26/16 09:32) Anaphylaxis Iodinated Contrast- Oral and IV Dye [Iodinated Contrast Media - IV Dye] Allergy (Verified 02/26/16 09:32) See Comments ramelteon [From Rozerem] Allergy (Verified 02/26/16 09:32) Difficulty Breathing Amoxicillin [From Augmentin] Adverse Reaction (Intermediate, Verified 02/26/16 09:32) Nausea azithromycin [From Zithromax] Adverse Reaction (Intermediate, Verified 02/26/16 09:32) Nausea clavulanic acid [From Augmentin] Adverse Reaction (Intermediate, Verified 09:32) Nausea dexlansoprazole [From Dexilant] Adverse Reaction (Mild, Verified 02/26/16 09:32) Headache Itching prednisone Adverse Reaction (Mild, Verified 02/26/16 09:32) See Comments Patient states high doses for long periods of time make her mind go crazy. sertraline [From Zoloft] Adverse Reaction (Mild, Verified 02/26/16 09:32) Depression Tetracycline Adverse Reaction (Mild, Verified 02/26/16 09:32) Nausea Varenicline [From Chantix] Adverse Reaction (Mild, Verified 02/26/16 09:32) Nightmare Date of admission: 11/17/16 16:47 Primary care physician: PCP NONE Consults: 11/19/16 08:51 Consult to International Exchange Coordinator [CONS] Routine Reason for SW Consult: patient request Anticipated date of discharge: 11/19/16 - Patient Status Disposition: Home, Self-Care Condition: Fair Functional capacity at discharge: independent ambulation Overall status at discharge: patient is progressing back to baseline - Discharge Instructions Follow Up With: Paula Casiano MAIL HANDLERS SUPERVISOR [Advanced Practice Nurse] - 11/27/16 2:15 pm Forms: ED Satisfaction Letter - Diet and Activity Activity: resume usual activities as tolerated, wear oxygen at all times Diet: advance to your usual diet Hospital course: Ms. Blackburn is a 71 year old female with past medical history of asthma, cancer, cardiomyopathy, CHF, COPD, coronary artery disease, GERD, hyperlipidemia, hypertension and history of PE. She presented with complaints of shortness of breath and productive cough with green: Sputum. Patient initially presented saying that she has had these symptoms for about one to 2 months. Symptoms gradually worsened. She also stated that she has a sinus infection which has been going on for several months. She also complained of chronic bloating and dyspepsia which is also contributing to her COPD exacerbation. Patient was on breathing treatments, IV steroids and IV Levaquin during her stay in the hospital. Long-term steroids are to be avoided in view of tracheomalacia. Patient follows up with a yeast cake cutter at [facility]. The patient does have chronic stridor, chronic dyspepsia and chronic respiratory failure. Her symptoms at this time have now improved. Her acute exacerbation of COPD and mild acute on chronic bronchitis of both improved. She is being discharged on Levaquin and also on tapering dose of steroids. Patient states she feels better today. She has no other acute events. No other acute complaints at present. She has been explained about her condition and plan of care. She understood and agreed. No unanswered questions. - Time Spent with Patient Total time spent providing and/or coordinating discharge services: Less than 30 minutes - Constitutional Vitals: Temp Pulse Resp BP Pulse Ox 98.5 F 105 17 111/69 100 11/19/16 10:54 11/19/16 10:54 11/19/16 10:54 11/19/16 10:54 11/19/16 10:54 General appearance: Present: A&O X 3, pleasant, no acute distress, answers questions appropriately - Head Head exam: Present: atraumatic - ENT ENT exam: Present: mucous membranes moist - Neck Neck exam general surgery: Present: supple - Respiratory Respiratory exam: Present: wheezes (Mild bilateral). Absent: accessory muscle use, rhonchi, tachypnea - Cardiovascular Cardiovascular exam: Present: RRR, +S1, +S2 - GI/Abdominal GI/Abdominal exam: Present: soft, no peritoneal signs. Absent: distended, firm , guarding, rigid, tenderness - Extremities Exam Extremities exam: Present: radial pulses palpable and symetrical. Absent: cyanotic, pedal edema, tenderness - Neurological Exam Neurological exam: Present: alert, oriented X3, no focal deficits. Absent: facial droop, speech deficit
== END 2016-11-19 13:40 | disposition home or self-care (01) | DRG 191 ==
LOC: EMEROO 14:24 → 3ANU 16:47
PROVIDERS: ADMIT Family Medicine; ATTEND Internal Medicine

== ENCOUNTER 2016-12-26 18:36 | Inpatient (IN) ==
[2016-12-26] MEDS ORDERED: methylPREDNISolone 125 MG/2 ML VIAL IVP ONE (18:41)
[2016-12-26] MEDS ORDERED: Ipratropium/Albuterol Neb 3 ML IH ONE (18:41)
[2016-12-26 19:05] LABS: Basophils # 0.1 K/mcL (0.0-0.2); Basophils % 0.8 %; Eosinophils # 0.2 K/mcL (0.0-0.6); Eosinophils % 1.9 %; Hematocrit 43.4 % (35.3-44.9); Hemoglobin 14.2 g/dL (11.5-15.4); Immature Granulocytes % 0.3 % (0-4); Lymphocytes # 2.1 K/mcL (0.6-4.6); Lymphocytes % 19.9 %; Mean Corpuscular HGB Conc 32.7 g/dL (31.6-35.5); Mean Corpuscular Hemoglobin 29.7 pg (28.0-33.3); Mean Corpuscular Volume 90.8 fL (83.0-100.0); Mean Platelet Volume 7.8 fL (9.4-12.4); Monocytes # 1.2 K/mcL (0.0-1.3); Platelet Count 388 K/mcL (140-400); Red Blood Count 4.78 M/mcL (3.82-4.97); Red Cell Distribution Width 12.1 % (11.5-14.5); Segmented Neutrophils % 66.1 %
--- NOTE | 2016-12-26 19:09 | Emergency Department Note ---
Disposition Clinical Impression: Acute exacerbation of chronic obstructive pulmonary disease, Acute respiratory distress Disposition: Admitted As Inpatient Condition: Fair Referrals: Unassigned,Provider [Primary Care Provider] - Forms: ED Satisfaction Letter SOB HPI - General Chief Complaint: ED Shortness of Breath/Dyspnea Stated Complaint: SOB Time Seen by Provider: 12/26/16 18:39 Source: patient Limitations: no limitations Nursing Notes Reviewed: Yes Vital Signs Reviewed: Yes - History of Present Illness She presents with shortness of breath which began 2 days ago at home and has gradually worsened and is intermittent and severe. She does have constant chest tightness. Does have a cough productive of green as well as cloudy sputum. No blood. She denies any fevers. Does have rhinorrhea but no sneezing. No blurred vision. She does not have any blood in the urine or stool , pain or swelling of the extremities or skin rashes does have some bruising of the skin. Social history: Stopped smoking 5-1/2 years ago. - Related Data Home Medications Medication Instructions Recorded Confirmed Budesonide/Formoterol 160/4.5 2 puff IH BID 12/19/14 11/17/16 [Symbicort] Docusate [Colace] 100 mg PO BID 12/19/14 11/17/16 Oxygen 2.5 l NS AD 05/17/15 11/17/16 Zaleplon [Sonata] 5 mg PO HS PRN 07/26/15 11/17/16 Nitroglycerin [Nitrostat] 0.4 mg SL Q5M PRN 11/22/15 11/17/16 Acetaminophen [Tylenol] 1,000 mg PO Q6HR PRN 12/20/15 11/17/16 Albuterol Sulfate [Proair Hfa] 2 puff IH Q4H PRN #0 12/20/15 11/17/16 Ergocalciferol (VITAMIN D2) 50,000 unit PO FR 12/20/15 11/17/16 [Vitamin D2 (50,000 UNIT)] ALPRAZolam [Xanax 0.25 MG Tablet] 0.25 mg PO TID PRN 01/04/16 11/17/16 Albuterol Neb [Proventil Neb] 2.5 mg IH QID 01/04/16 11/17/16 Tiotropium [Spiriva] 18 mcg IH 0800 01/04/16 11/17/16 HYDROcodone/Acet 5/325 mg [[place] 1 tab PO TID PRN 02/26/16 11/17/16 5-325 mg] Ondansetron ODT [Zofran ODT] 4 mg SL Q8HR PRN 02/26/16 11/17/16 Bisacodyl [Dulcolax] 10 mg RC DAILY PRN 05/03/16 11/17/16 Fluticasone Propionate Nasal 1 spr NS HS 05/03/16 11/17/16 [Flonase] L. Acidophilus/Pectin, [place] 1 each PO DAILY 05/03/16 11/17/16 [Acidophilus Probiotic Capsule] Metoprolol [Lopressor] 12.5 mg PO BID 05/03/16 11/18/16 Albuterol Sulfate [Proair Hfa] 2 puff IH Q4H PRN 11/17/16 11/17/16 Aspirin [Lo-Dose Aspirin EC] 81 mg PO DAILY 11/17/16 11/17/16 Diclofenac Sodium [Voltaren] 1 appl TP QID PRN 11/17/16 11/17/16 Lactulose 30 ml PO DAILY PRN 11/17/16 11/17/16 Mv,Fe,Min/Lutein [A Thru Z Select 1 tab PO DAILY 11/17/16 11/17/16 Women's Tablet] Polyethylene Glycol 3350 [MiraLAX] 17 gm PO DAILY 11/17/16 11/17/16 Previous Rx's Medication Instructions Recorded Levofloxacin [Levaquin] 500 mg PO DAILY 7 Days 11/19/16 Omeprazole [PriLOSEC] 20 mg PO BID #60 11/19/16 Simethicone [Gas-X] 80 mg PO QID 30 Days 11/19/16 methylPREDNISolone [Medrol] 4 mg PO DAILY 5 Days 11/19/16 Allergies Allergy/AdvReac Type Severity Reaction Status Date / Time acetylcysteine Allergy Severe Anaphylaxis Verified 02/26/16 09:32 Iodinated Contrast- Oral and Allergy See Verified 02/26/16 09:32 IV Dye Comments [Iodinated Contrast Media - IV Dye] ramelteon [From Rozerem] Allergy Difficulty Verified 02/26/16 09:32 Breathing Amoxicillin [From Augmentin] AdvReac Intermediate Nausea Verified 02/26/16 09:32 azithromycin [From Zithromax] AdvReac Intermediate Nausea Verified 02/26/16 09: 32 clavulanic acid AdvReac Intermediate Nausea Verified 02/26/16 09:32 [From Augmentin] dexlansoprazole AdvReac Mild Headache Verified 02/26/16 09:32 [From Dexilant] prednisone AdvReac Mild See Verified 02/26/16 09:32 Comments sertraline [From Zoloft] AdvReac Mild Depression Verified 02/26/16 09:32 Tetracycline AdvReac Mild Nausea Verified 02/26/16 09:32 Varenicline [From Chantix] AdvReac Mild Nightmare Verified 02/26/16 09:32 Review of Systems: Constitutional: No fever Vision: No blurred vision ENT: + rhinorrhea Respiratory: + cough Allergic: No allergies : No blood in urine GI: No blood in stool Hematologic: + bruising Dermatologic: No skin rash Musculoskeletal: No pain in the extremities Neuro: No numbness of the extremities Past Medical History - Past Medical History Medical history: Reports: asthma, cancer, cardiomyopathy, CHF, COPD, coronary artery disease, GERD, hyperlipidemia, hypertension, myocardial infarction, osteoporosis, pulmonary embolus, other Surgical history: Reports: angioplasty/stent, cancer surgery, cataract, cholecystectomy, sinus surgery 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 EYES: PERRL, no scleral icterus. NOSE: The nose is normal in appearance without rhinorrhea RESP: Normal chest excursion with respiration; breath sounds with bilateral wheezing and tight lung sounds which is symmetric CARD: Regular rhythm, without murmurs, rub or gallop ABD: Non-distended; non-tender, soft,without rigidity, rebound or guarding SKIN: Normal for age and race; warm and dry; no apparent lesions EXTREMITIES: Pulses are 2 plus and equal times 4 extremities, no peripheral edema or calf muscle pain. - General Limitations: no limitations General appearance: alert Course Vital Signs Temperature 97.5 F L 12/26/16 18:39 Pulse Rate 116 12/26/16 18:39 Respiratory Rate 22 12/26/16 18:39 Blood Pressure 179/112 12/26/16 18:39 O2 Sat by Pulse Oximetry 97 12/26/16 18:39 Temperature 97.5 F L 12/26/16 18:39 Pulse Rate 128 12/26/16 20:07 Respiratory Rate 22 12/26/16 20:07 Blood Pressure 140/97 12/26/16 20:07 O2 Sat by Pulse Oximetry 96 12/26/16 20:07 Oxygen Delivery Oxygen Delivery Bipap Shortness of Breath/Dyspnea - MDM Narrative Medical decision making narrative: At this point the patient's symptoms are most consistent with a COPD exacerbation. Does have moderate to severe respiratory distress. She is placed on a BiPAP mask. During, IV Solu-Medrol, labs including d-dimer, troponin and BNP are ordered and are pending. Patiently was closed on the cardiac sonographer admitted. I did review her EKG showing sinus tachycardia with rate of 115/m and evidence of ST depression 1908 I did review the patient's radiology result of the chest x-ray which was negative as well as the patient's lab results. D-dimer minimally elevated but adjusted for age is negative. The patient does have findings most consistent with COPD exacerbation. She did worsen during her ED course and I wrote for a second albuterol aerosol was continuous. Her oxygen saturation at that time was 98% heart rate 133 bpm. I also did give the patient Ativan 0.5 mg. Patient will be admitted to a monitored bed and the case was discussed with Dr. Paiz who is the hospitalist. Except the patient for admission. Patient will also be started on antibiotics and did receive Solu-Medrol earlier. Troponin negative. 2010 - Medical Records Medical records reviewed: Yes I reviewed the patient's medical records. - Lab Data Lab results reviewed: Yes I reviewed the patient's lab results. Result diagrams: 12/26/16 18:56 12/26/16 18:56 Lab Results 12/26/16 12/26/16 12/26/16 Range/Units 18:56 18:56 18:56 WBC 10.6 (4.3-11.1) K/mcL RBC 4.78 (3.82-4.97) M/mcL Hgb 14.2 (11.5-15.4) g/dL Hct 43.4 (35.3-44.9) % MCV 90.8 (83.0-100.0) fL MCH 29.7 (28.0-33.3) pg MCHC 32.7 (31.6-35.5) g/dL RDW 12.1 (11.5-14.5) % Plt Count 388 (140-400) K/mcL MPV 7.8 L (9.4-12.4) fL Immature Gran % 0.3 (0-4) % Seg Neutrophils % 66.1 % Lymphocytes % 19.9 % Monocytes % 11.0 % Eosinophils % 1.9 % Basophils % 0.8 % Neutrophils # 7.0 (1.6-8.9) K/mcL Lymphocytes # 2.1 (0.6-4.6) K/mcL Monocytes # 1.2 (0.0-1.3) K/mcL Eosinophils # 0.2 (0.0-0.6) K/mcL Basophils # 0.1 (0.0-0.2) K/mcL D-Dimer 573 H (0-500) ng/mLFEU Sodium 132 L (136-145) mEq/L Potassium 4.4 (3.5-4.5) mEq/L Chloride 94 L (98-109) mEq/L Carbon Dioxide 29 (19-29) mEq/L BUN 9 (7-20) mg/dL Creatinine 0.76 (0.57-1.11) mg/dL Est GFR ( Amer) > 60 (> 60) Est GFR (Non-Af Amer) > 60 (> 60) BUN/Creatinine Ratio 12 (6-26) Glucose 96 (70-99) mg/dL Calculated Osmolality 273 L (280-300) Calcium 10.0 (8.6-10.8) mg/dL Troponin I (0-0.03) ng/mL B-Natriuretic Peptide (0-100) pg/mL 12/26/16 12/26/16 Range/Units 18:56 18:56 WBC (4.3-11.1) K/mcL RBC (3.82-4.97) M/mcL Hgb (11.5-15.4) g/dL Hct (35.3-44.9) % MCV (83.0-100.0) fL MCH (28.0-33.3) pg MCHC (31.6-35.5) g/dL RDW (11.5-14.5) % Plt Count (140-400) K/mcL MPV (9.4-12.4) fL Immature Gran % (0-4) % Seg Neutrophils % % Lymphocytes % % Monocytes % % Eosinophils % % Basophils % % Neutrophils # (1.6-8.9) K/mcL Lymphocytes # (0.6-4.6) K/mcL Monocytes # (0.0-1.3) K/mcL Eosinophils # (0.0-0.6) K/mcL Basophils # (0.0-0.2) K/mcL D-Dimer (0-500) ng/mLFEU Sodium (136-145) mEq/L Potassium (3.5-4.5) mEq/L Chloride (98-109) mEq/L Carbon Dioxide (19-29) mEq/L BUN (7-20) mg/dL Creatinine (0.57-1.11) mg/dL Est GFR ( Amer) (> 60) Est GFR (Non-Af Amer) (> 60) BUN/Creatinine Ratio (6-26) Glucose (70-99) mg/dL Calculated Osmolality (280-300) Calcium (8.6-10.8) mg/dL Troponin I 0.00 (0-0.03) ng/mL B-Natriuretic Peptide 81 (0-100) pg/mL - Radiology Data Radiology results reviewed: Yes I reviewed the patient's radiology results. Critical Care Time Critical Care Time: Yes Attestation: I did spend 30 minutes of critical care time with the patient who is in acute respiratory distress on BiPAP and is being admitted the patient to receive medications Solu-Medrol, antibiotics, 2 now and then albuterol aerosols on a continuous basis as well as intravenous Ativan. The patient does remain in a concerning condition. 2011
[2016-12-26 19:20] LABS: BUN/Creatinine Ratio 12 (6-26); Blood Urea Nitrogen 9 mg/dL (7-20); Carbon Dioxide 29 mEq/L (19-29); Chloride 94 mEq/L (98-109); Glucose 96 mg/dL (70-99); Osmolality,Calculated 273 (280-300); Potassium 4.4 mEq/L (3.5-4.5); Sodium 132 mEq/L (136-145); eGFR For African Americans > 60 (> 60); eGFR For Non-African Americans > 60 (> 60)
[2016-12-26] MEDS ORDERED: Albuterol Neb 7.5 MG, Sodium Chloride for inhalation 12 ML IH ONE ×2 (19:28→20:00)
[2016-12-26] MEDS ORDERED: *HR* LORazepam 1 MG TABLET PO ONE (19:55)
[2016-12-26] MEDS ORDERED: Azithromycin 500 MG in D5% in Water 250 ML IVPB ONE (20:19)
[2016-12-26] MEDS ORDERED: Simethicone 80 MG TAB.CHEW PO PRN (21:14)
[2016-12-26] MEDS ORDERED: Bisacodyl 10 MG RECTAL SUPPOSITORY RC PRN (21:14)
[2016-12-26] MEDS ORDERED: Ondansetron ODT 4 MG TAB.RAPDIS SL PRN (21:14)
[2016-12-26] MEDS ORDERED: Lactulose Oral Soln 20 GM/30 ML UDC PO PRN (21:14)
[2016-12-26] MEDS ORDERED: Oxymetazoline Nasal SPRAY BOTTLE NS PRN (21:14)
[2016-12-26] MEDS ORDERED: Ipratropium/Albuterol Neb 3 ML IH PRN (21:16)
[2016-12-26] MEDS ORDERED: Naloxone 0.4 MG/ML INJ IVP PRN (21:17)
--- NOTE | 2016-12-26 21:22 | Internal Med History&Physical ---
Date of Encounter: 12/26/16 Time of Encounter: 21:20 Assessment and Plan (1) Acute exacerbation of chronic obstructive pulmonary disease Current visit: No Status: Acute needing temporary bipap, start duonebs, azithro IV, solumedrol, monitor for now. pulse ox (2) Anxiety Current visit: No Status: Chronic continue xanax (3) Bloating symptom Current visit: No Status: Acute chronic symptoms. gets laxatives daily, improvement with tums (4) HTN (hypertension), benign Current visit: Yes Status: Acute continue lopressor. stable Internal Medicine - H&P: HPI Chief complaint: SOB History of present illness: Ms. Blackburn is a 71 year old female who presents with worsening SOB. Found to have COPD flare. She resides in an assisted living facility and uses 2 L NC at baseline all day. In the last few days, she had noticed markedly worsening of respiratory symptoms. SOB, BECK and is only able to ambulate around to the bathroom and not more. SOB improved with rest and neb and bipap therapy. On review, she reports a hx of pelvic floor dysfunction and a hx of stomach bloating with decreased appetite. She is moving bowels XR/XR chest 1V portable IMPRESSION: No acute cardiopulmonary disease. Past Med Surg Social Fam HX - Past Medical History Medical history: asthma, cancer, cardiomyopathy, CHF, COPD, coronary artery disease, GERD, hyperlipidemia, hypertension, myocardial infarction, osteoporosis , pulmonary embolus, other Psychiatric history: anxiety, depression - Past Surgical History Surgical History: angioplasty/stent, cancer surgery, cataract, cholecystectomy, sinus surgery - Social History Smoking Status: Former smoker Smokeless Tobacco Status: No Alcohol use: none Drug use: none - Family History Son Living Status: Still Living Hx Family GI Disorders: Yes Mother Living Status: Hx Family Cancer: Yes (Uterine) Sister Living Status: Still Living Hx Family Cardiac Disorders: Yes (Cerebrovascular accident) Hx Family Respiratory Disorders: No Hx Family Cancer: No Hx Family GI Disorders: No Hx Family Endocrine Disorder: No Hx Family Neuromuscular Disorders: No Hx Family Neurologic Disorders: No Hx Family HEENT Disorders: No Hx Family Autoimmune Disorders: No Daughter Living Status: Still Living Hx Family Cardiac Disorders: Yes (stent) Hx Family Respiratory Disorders: Yes (copd, allergies,) Hx Family Cancer: No Hx Family GI Disorders: No Hx Family Endocrine Disorder: No Hx Family Neuromuscular Disorders: No Hx Family Neurologic Disorders: No Hx Family HEENT Disorders: No Hx Family Autoimmune Disorders: No Brother Family Member Ethnicity: Non- Living Status: Still Living Hx Family Cardiac Disorders: Yes (Coronary artery disease) Hx Family Respiratory Disorders: No Hx Family Cancer: No Hx Family GI Disorders: No Hx Family Endocrine Disorder: Yes (TYPE 2 DIABETES MELLITUS) Hx Family Neuromuscular Disorders: No Hx Family Neurologic Disorders: No Hx Family HEENT Disorders: No Hx Family Autoimmune Disorders: No Father Living Status: Hx Family Cardiac Disorders: Yes (Coronary artery disease) Hx Family Respiratory Disorders: No Hx Family Cancer: Yes (Bladder) Hx Family GI Disorders: No Hx Family Endocrine Disorder: No Hx Family Neuromuscular Disorders: No Hx Family Neurologic Disorders: No Hx Family HEENT Disorders: No Hx Family Autoimmune Disorders: No Internal Medicine - H&P: Meds Budesonide/Formoterol 160/4.5 [Symbicort] 2 puff IH BID 12/19/14 [History] Oxygen 2.5 l NS AD 05/17/15 [History] Nitroglycerin [Nitrostat] 0.4 mg SL Q5M PRN 11/22/15 [History] Acetaminophen [Tylenol] 1,000 mg PO Q6HR PRN 12/20/15 [History] ALPRAZolam [Xanax 0.25 MG Tablet] 0.25 mg PO TID PRN 01/04/16 [History] Albuterol Neb [Proventil Neb] 2.5 mg IH QID 01/04/16 [History] Tiotropium [Spiriva] 18 mcg IH 0800 01/04/16 [History] HYDROcodone/Acet 5/325 mg [[place] 5-325 mg] 1 tab PO TID PRN 02/26/16 [History] Ondansetron ODT [Zofran ODT] 4 mg SL Q8HR PRN 02/26/16 [History] Bisacodyl [Dulcolax] 10 mg RC DAILY PRN 05/03/16 [History] Fluticasone Propionate Nasal [Flonase] 1 spr NS HS 05/03/16 [History] Metoprolol [Lopressor] 12.5 mg PO BID 05/03/16 [History] Albuterol Sulfate [Proair Hfa] 2 puff IH Q4H PRN 11/17/16 [History] Aspirin [Lo-Dose Aspirin EC] 81 mg PO DAILY 11/17/16 [History] Diclofenac Sodium [Voltaren] 1 appl TP QID PRN 11/17/16 [History] Lactulose 20 gm PO DAILY PRN 11/17/16 [History] Mv,Fe,Min/Lutein [A Thru Z Select Women's Tablet] 1 tab PO DAILY 11/17/16 [ History] Polyethylene Glycol 3350 [MiraLAX] 17 gm PO DAILY PRN 11/17/16 [History] Omeprazole [PriLOSEC] 20 mg PO BID #60 11/19/16 [Rx] ALPRAZolam [Xanax 0.5 MG Tablet] 0.5 mg PO HS 12/26/16 [History] Oxymetazoline HCl [Long Acting Nasal [place]] 1 spray NS TID PRN 12/26/16 [History ] Simethicone [Gas-X] 80 mg PO QID PRN 12/26/16 [History] Syringe W-Needle,Disposab,1 ml [Allergy Syringe] 1 each MC QWEEK 12/26/16 [ History] 3 Allergy/AdvReac Type Severity Reaction Status Date / Time acetylcysteine Allergy Severe Anaphylaxis Verified 02/26/16 09:32 Iodinated Contrast- Oral and Allergy See Verified 02/26/16 09:32 IV Dye Comments [Iodinated Contrast Media - IV Dye] ramelteon [From Rozerem] Allergy Difficulty Verified 02/26/16 09:32 Breathing Amoxicillin [From Augmentin] AdvReac Intermediate Nausea Verified 02/26/16 09:32 azithromycin [From Zithromax] AdvReac Intermediate Nausea Verified 02/26/16 09: 32 clavulanic acid AdvReac Intermediate Nausea Verified 02/26/16 09:32 [From Augmentin] dexlansoprazole AdvReac Mild Headache Verified 02/26/16 09:32 [From Dexilant] prednisone AdvReac Mild See Verified 02/26/16 09:32 Comments sertraline [From Zoloft] AdvReac Mild Depression Verified 02/26/16 09:32 Tetracycline AdvReac Mild Nausea Verified 02/26/16 09:32 Varenicline [From Chantix] AdvReac Mild Nightmare Verified 02/26/16 09:32 All Systems PM: A 10-system review of systems was performed and is negative for pertinent findings except as documented above in the HPI. Review of systems: ROS 14 point review of systems reviewed as best as possible given presentation. Pertinent positive or negative as per HPI or otherwise reviewed as negative - Constitutional Vitals: Temp Pulse Resp BP Pulse Ox 97.5 F L 128 22 150/97 100 12/26/16 18:39 12/26/16 20:07 12/26/16 20:47 12/26/16 20:47 12/26/16 20:32 Exam: General - AAO x 3 Psych - Appropriate affect/speech. No agitation Eyes - ALEKSANDRA. Eye lids intact. No scleral icterus Heart - Sinus. RRR. S1 and S2 present. No added HS/murmurs appreciated. No elevated JVD appreciated. Lung - adequate air entry on BiPAP, no wheezes or crackles GI - Soft, non-tender. No hepatosplenomegaly/ascites. BS+ - No CVA/suprapubic tenderness or palpable bladder distension Skin - Intact. No rash/petechiae/ecchymosis. Warm extremities MSK - Joints with normal ROM. No joint swellings Internal Med - H&P Results - Labs CBC & Chem 7: 12/26/16 18:56 12/26/16 18:56
[2016-12-26] MEDS: Budesonide/Formoterol 160/4.5 MDI IH SCH (22:48)
[2016-12-26] MEDS: Ipratropium/Albuterol Neb 3 ML IH SCH (22:48)
[2016-12-26] MEDS: ALPRAZolam 0.5 MG TABLET PO SCH (22:52)
[2016-12-26] MEDS: MethylPREDNISolone 40 MG/ML VIAL IVP SCH (23:16)
[2016-12-27] MEDS: Ipratropium/Albuterol Neb 3 ML IH SCH ×4 (04:15→21:04)
[2016-12-27 04:38] LABS: Basophils % 0.1 %; Hematocrit 42.5 % (35.3-44.9); Hemoglobin 14.2 g/dL (11.5-15.4); Immature Granulocytes % 0.6 % (0-4); Lymphocytes # 0.5 K/mcL (0.6-4.6); Lymphocytes % 6.2 %; Mean Corpuscular HGB Conc 33.4 g/dL (31.6-35.5); Mean Corpuscular Hemoglobin 30.3 pg (28.0-33.3); Mean Corpuscular Volume 90.6 fL (83.0-100.0); Mean Platelet Volume 7.9 fL (9.4-12.4); Monocytes % 0.5 %; Neutrophils # 7.2 K/mcL (1.6-8.9); Platelet Count 368 K/mcL (140-400); Red Blood Count 4.69 M/mcL (3.82-4.97); Red Cell Distribution Width 12.2 % (11.5-14.5); Segmented Neutrophils % 92.6 %
[2016-12-27 04:58] LABS: BUN/Creatinine Ratio 16 (6-26); Blood Urea Nitrogen 11 mg/dL (7-20); Carbon Dioxide 28 mEq/L (19-29); Chloride 97 mEq/L (98-109); Glucose 162 mg/dL (70-99); Magnesium 1.7 mg/dL (1.6-2.6); Osmolality,Calculated 283 (280-300); Potassium 4.5 mEq/L (3.5-4.5); Sodium 135 mEq/L (136-145); eGFR For African Americans > 60 (> 60); eGFR For Non-African Americans > 60 (> 60)
[2016-12-27] MEDS: MethylPREDNISolone 40 MG/ML VIAL IVP SCH ×3 (05:17→23:24)
[2016-12-27] MEDS ORDERED: *HR* Enoxaparin 30 MG/0.3 ML SYRINGE SQ SCH (06:00)
[2016-12-27] MEDS ORDERED: Tiotropium 18 MCG inhalation IH SCH (08:00)
[2016-12-27] MEDS ORDERED: Azithromycin 500 MG in D5% in Water 250 ML IVPB SCH (09:00)
[2016-12-27] MEDS ORDERED: Azithromycin 250 MG TABLET PO SCH (09:00)
--- NOTE | 2016-12-27 09:25 | Internal Med Progress Note ---
<KatmayaGuru quan - Last Filed: 12/27/16 14:05> Date of Encounter: 12/27/16 Time of Encounter: 09:15 - Assessment and plan (1) Acute exacerbation of chronic obstructive pulmonary disease Current Visit: Yes Status: Acute Assessment and plan: Improving. Patient reports history of seasonal allergies, most likely cause of her exacerbation Patient back on her home oxygen level of 2L Lungs CTAB with diminished breath sounds CXR: No active disease Patient reports change in sputum color from clear to green. Continue Steroids, duonebs, Azithromycin day 2. Continue to monitor. (2) Anxiety Current Visit: Yes Status: Chronic Assessment and plan: Chronic, stable. Continue home meds. (3) Bloating symptom Current Visit: Yes Status: Chronic Assessment and plan: Patient has chronic issue. She has had an extensive work up including CTs, EGDs , Gastric emptying studies, x rays, colonoscopies all of which have not shown cause for her symptoms. GE scan in 2013 showed 89% emptying at 4 hours which is not consitent She has been tried on numerous medications including Reglan, Protonix, Carafate, acidophilus and Activia . Negative SIBO and Fructose breath tests in 2014. H. pylori negative. continue PRN medications Since the patient has been worked up for this multiple times we will not pursue any further studies at this time. (4) HTN (hypertension), benign Current Visit: Yes Status: Chronic Assessment and plan: Chronic, stable. Continue home meds. - Subjective Interval history: Patient reports some improvement in her breathing. Complaining of Chronic abdominal bloating/discomfort. Also complaining her mouth is dry. - Constitutional Vitals: Temp Pulse Resp BP Pulse Ox 98 F 115 20 184/75 93 12/27/16 07:18 12/27/16 07:18 12/27/16 07:18 12/27/16 07:18 12/27/16 07:18 General appearance: Present: A&O X 3, answers questions appropriately - Head Head exam: Present: atraumatic, normocephalic - Eye Eye exam: Present: conjuntiva pink, sclera anicteric - Neck Neck exam general surgery: Present: supple, trachea midline - Respiratory Respiratory exam: Present: decreased breath sounds, CTAB. Absent: accessory muscle use, rales, rhonchi, wheezes - Cardiovascular Cardiovascular exam: Present: RRR, +S1, +S2. Absent: diastolic murmur, gallop, rubs, systolic murmur - GI/Abdominal GI/Abdominal exam: Present: normal bowel sounds, soft, tenderness (RUQ, epigastric), no peritoneal signs - Extremities Exam Extremities exam: Present: warm. Absent: calf tenderness, cyanotic, pedal edema - Neurological Exam Neurological exam: Present: alert, oriented X3. Absent: facial droop, speech deficit - Skin Skin exam: Present: dry, intact, warm Internal Medicine: Result - Labs CBC & Chem 7: 12/27/16 04:17 12/27/16 04:17 Labs: Short CBC 12/27/16 Range/Units 04:17 WBC 7.8 (4.3-11.1) K/mcL Hgb 14.2 (11.5-15.4) g/dL Hct 42.5 (35.3-44.9) % Plt Count 368 (140-400) K/mcL Neutrophils # 7.2 (1.6-8.9) K/mcL BMP 12/27/16 04:17 Sodium 135 L Potassium 4.5 Chloride 97 L Carbon Dioxide 28 BUN 11 Creatinine 0.70 Glucose 162 H Calcium 10.0 - ABG Interpretation ABG results: PT/INR, D-dimer D-Dimer 573 ng/mLFEU (0-500) H 12/26/16 18:56 Consult Discharge Plan - Plan Referrals: Paula Casiano, SENIOR TREASURY ANALYST [Primary Care Provider] - 01/02/17 9:30 am () <oJsue Chen - Last Filed: 12/27/16 17:41> Date of Encounter: 12/27/16 - Assessment and plan (1) Acute and chronic respiratory failure Current Visit: No Status: Acute Qualifiers: Respiratory failure complication: hypoxia Qualified Code(s): J96.21 - Acute and chronic respiratory failure with hypoxia (2) Acute exacerbation of chronic obstructive airways disease Current Visit: No Status: Acute (3) HTN (hypertension), benign Current Visit: Yes Status: Chronic (4) CAD (coronary artery disease) Current Visit: No Status: Chronic Qualifiers: Coronary Disease-Associated Artery/Lesion type: nikolai artery [place] vs. transplanted heart: nikolai heart Associated angina: without angina Qualified Code(s): I25.10 - Atherosclerotic heart disease of nikolai coronary artery without angina pectoris (5) Abdominal bloating Current Visit: No Status: Chronic - Constitutional Vitals: Temp Pulse Resp BP Pulse Ox 98 F 115 20 129/73 91 12/27/16 16:22 12/27/16 16:22 12/27/16 16:22 12/27/16 16:22 12/27/16 16:22 Internal Medicine: Result - Labs CBC & Chem 7: 12/27/16 04:17 12/27/16 04:17 Labs: Short CBC 12/27/16 Range/Units 04:17 WBC 7.8 (4.3-11.1) K/mcL Hgb 14.2 (11.5-15.4) g/dL Hct 42.5 (35.3-44.9) % Plt Count 368 (140-400) K/mcL Neutrophils # 7.2 (1.6-8.9) K/mcL BMP 12/27/16 04:17 Sodium 135 L Potassium 4.5 Chloride 97 L Carbon Dioxide 28 BUN 11 Creatinine 0.70 Glucose 162 H Calcium 10.0 - ABG Interpretation ABG results: PT/INR, D-dimer D-Dimer 573 ng/mLFEU (0-500) H 12/26/16 18:56 - Attending Attestation I examined this patient and my medical decision-making was reviewed with the Resident Physician on 12/27/16. I agree with the documented findings, disposition and treatment plan as described except to the extent set forth below. Ms. Blackburn is currently admitted for acute exac COPD and hypoxia. She remains moderate to high risk due to potential for worsening respiratory status. Ms. Blackburn is breathing OK but complaining about her abdomen. Review of records shows she has had multiple visits for this and a lot of testing. She has seen GI and other physicians. No fever or chills. Exam alert. Comfortable Mucus membranes dry Heart reg Wheeze present Abd soft No edema I/P 1. Hypoxia 2. COPD Further diagnoses and plan as above.
[2016-12-27] MEDS: Aspirin Enteric Coated 81 MG Tablet PO SCH (10:03)
[2016-12-27] MEDS: Azithromycin 500 MG in D5% in Water 250 ML IVPB SCH (10:28)
[2016-12-27] MEDS: Budesonide/Formoterol 160/4.5 MDI IH SCH ×2 (10:44→21:04)
[2016-12-27] MEDS ORDERED: Saliva Stimulant 100ml BOTTLE PO PRN (13:51)
--- NOTE | 2016-12-27 15:57 | Electrocardiograph Report ---
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
[2016-12-27] MEDS: Fluticasone Propionate Nasal 50 MCG/SPRAY BOTTLE NS SCH (21:20)
[2016-12-27] MEDS: ALPRAZolam 0.5 MG TABLET PO SCH (21:58)
[2016-12-28] MEDS: ALPRAZolam 0.25 MG TABLET PO PRN (02:39)
[2016-12-28] MEDS: Ipratropium/Albuterol Neb 3 ML IH SCH (03:50)
[2016-12-28] MEDS: *HR* Enoxaparin 40 MG/0.4 ML SYRINGE SQ SCH (05:11)
[2016-12-28 05:55] LABS: Basophils % 0.1 %; Hematocrit 40.6 % (35.3-44.9); Hemoglobin 13.4 g/dL (11.5-15.4); Immature Granulocytes % 0.9 % (0-4); Lymphocytes # 0.4 K/mcL (0.6-4.6); Lymphocytes % 3.7 %; Mean Corpuscular Hemoglobin 29.8 pg (28.0-33.3); Mean Corpuscular Volume 90.4 fL (83.0-100.0); Mean Platelet Volume 8.4 fL (9.4-12.4); Monocytes # 0.4 K/mcL (0.0-1.3); Monocytes % 3.6 %; Platelet Count 393 K/mcL (140-400); Red Blood Count 4.49 M/mcL (3.82-4.97); Red Cell Distribution Width 12.2 % (11.5-14.5); Segmented Neutrophils % 91.7 %
[2016-12-28 06:07] LABS: BUN/Creatinine Ratio 21 (6-26); Blood Urea Nitrogen 13 mg/dL (7-20); Calcium 9.3 mg/dL (8.6-10.8); Carbon Dioxide 30 mEq/L (19-29); Chloride 99 mEq/L (98-109); Glucose 143 mg/dL (70-99); Osmolality,Calculated 285 (280-300); Potassium 4.6 mEq/L (3.5-4.5); Sodium 136 mEq/L (136-145); eGFR For African Americans > 60 (> 60); eGFR For Non-African Americans > 60 (> 60)
[2016-12-28] MEDS: Aspirin Enteric Coated 81 MG Tablet PO SCH (07:45)
[2016-12-28] MEDS: Budesonide/Formoterol 160/4.5 MDI IH SCH ×2 (10:31→21:08)
[2016-12-28] MEDS: Albuterol 2.5 MG/3 ML NEBULIZER IH SCH ×3 (10:31→21:08)
[2016-12-28] MEDS: MethylPREDNISolone 40 MG/ML VIAL IVP SCH ×2 (10:58→22:11)
[2016-12-28] MEDS: Azithromycin 500 MG in D5% in Water 250 ML IVPB SCH (11:03)
--- NOTE | 2016-12-28 14:57 | Internal Med Progress Note ---
Date of Encounter: 12/28/16 Time of Encounter: 08:30 - Assessment and plan (1) Acute and chronic respiratory failure Current Visit: No Status: Acute Assessment and plan: At baseline oxygen requirements at this time. Will continue to monitor and adjust as needed. Qualifiers: Respiratory failure complication: hypoxia Qualified Code(s): J96.21 - Acute and chronic respiratory failure with hypoxia (2) Acute exacerbation of chronic obstructive airways disease Current Visit: No Status: Acute Assessment and plan: On IV abx. Taper steroids. Continues aerosols as ordered. (3) HTN (hypertension), benign Current Visit: Yes Status: Chronic Assessment and plan: Essentially controlled. Continue as is for now. (4) CAD (coronary artery disease) Current Visit: No Status: Chronic Assessment and plan: Continue routine home meds. Qualifiers: Coronary Disease-Associated Artery/Lesion type: [place] artery [place] vs. transplanted heart: [place] heart Associated angina: without angina Qualified Code(s): I25.10 - Atherosclerotic heart disease of [place] coronary artery without angina pectoris (5) Abdominal bloating Current Visit: No Status: Chronic Assessment and plan: Checking CT abdomen today for eval of aorta, etc. Cannot have contrast. Start lactose free. - Subjective Interval history: Ms Blackburn is currently admitted for acute on chronic hypoxic resp failure and COPD exac. She remains moderate to high risk due to potential for worsening resp status. Ms. Blackburn is worried about her abdomen. She is concerned about aneurysm as runs in her family. No fever or chills. Breathing about the same. Tolerating current meds. No CP. - Constitutional Vitals: Temp Pulse Resp BP Pulse Ox 97.4 F L 101 20 139/94 93 12/28/16 11:34 12/28/16 11:34 12/28/16 11:34 12/28/16 11:34 12/28/16 11:34 General appearance: Present: A&O X 3, answers questions appropriately - Head Head exam: Present: normocephalic - Eye Eye exam: Present: EOMI, conjuntiva pink - ENT ENT exam: Present: mucous membranes dry - Respiratory Respiratory exam: Present: decreased breath sounds, prolonged expiratory phase. Absent: rales, rhonchi, wheezes - Cardiovascular Cardiovascular exam: Present: distant heart sounds, RRR. Absent: tachycardia - GI/Abdominal GI/Abdominal exam: Present: soft. Absent: tenderness - Extremities Exam Extremities exam: Present: warm. Absent: tenderness - Neurological Exam Neurological exam: Present: alert, oriented X3, no focal deficits - Skin Skin exam: Present: warm. Absent: dry, rash Internal Medicine: Result - Labs CBC & Chem 7: 12/28/16 05:17 12/28/16 05:17 Labs: Short CBC 12/28/16 Range/Units 05:17 WBC 10.9 (4.3-11.1) K/mcL Hgb 13.4 (11.5-15.4) g/dL Hct 40.6 (35.3-44.9) % Plt Count 393 (140-400) K/mcL Neutrophils # 10.0 H (1.6-8.9) K/mcL BMP 12/28/16 05:17 Sodium 136 Potassium 4.6 H Chloride 99 Carbon Dioxide 30 H BUN 13 Creatinine 0.63 Glucose 143 H Calcium 9.3 - ABG Interpretation ABG results: PT/INR, D-dimer D-Dimer 573 ng/mLFEU (0-500) H 12/26/16 18:56 - Impressions Impressions Abdomen CT 12/28/16 08:44 IMPRESSION: 1. No acute abnormality. D/ / Gustavo Winston MD / Gustavo Winston MD Interpreting Provider: Gustavo Winston MD Consult Discharge Plan - Plan Referrals: Paula Casiano CNP [Primary Care Provider] - 01/02/17 9:30 am ()
[2016-12-28] MEDS: ALPRAZolam 0.5 MG TABLET PO SCH (22:11)
[2016-12-28] MEDS: Fluticasone Propionate Nasal 50 MCG/SPRAY BOTTLE NS SCH (22:11)
[2016-12-29] MEDS: Albuterol 2.5 MG/3 ML NEBULIZER IH SCH ×3 (04:25→15:35)
[2016-12-29] MEDS: *HR* Enoxaparin 40 MG/0.4 ML SYRINGE SQ SCH (06:27)
[2016-12-29] MEDS: ALPRAZolam 0.25 MG TABLET PO PRN (06:36)
[2016-12-29 07:47] LABS: Basophils % 0.1 %; Hemoglobin 13.2 g/dL (11.5-15.4); Immature Granulocytes % 0.7 % (0-4); Lymphocytes # 0.6 K/mcL (0.6-4.6); Lymphocytes % 5.4 %; Mean Corpuscular HGB Conc 32.2 g/dL (31.6-35.5); Mean Corpuscular Hemoglobin 29.7 pg (28.0-33.3); Mean Corpuscular Volume 92.1 fL (83.0-100.0); Mean Platelet Volume 8.2 fL (9.4-12.4); Monocytes # 0.8 K/mcL (0.0-1.3); Monocytes % 7.2 %; Neutrophils # 9.7 K/mcL (1.6-8.9); Platelet Count 385 K/mcL (140-400); Red Blood Count 4.45 M/mcL (3.82-4.97); Red Cell Distribution Width 12.3 % (11.5-14.5); Segmented Neutrophils % 86.6 %
[2016-12-29 07:49] LABS: BUN/Creatinine Ratio 20 (6-26); Blood Urea Nitrogen 12 mg/dL (7-20); Calcium 9.3 mg/dL (8.6-10.8); Carbon Dioxide 32 mEq/L (19-29); Chloride 98 mEq/L (98-109); Glucose 136 mg/dL (70-99); Osmolality,Calculated 282 (280-300); Potassium 4.4 mEq/L (3.5-4.5); Sodium 135 mEq/L (136-145); eGFR For African Americans > 60 (> 60); eGFR For Non-African Americans > 60 (> 60)
[2016-12-29] MEDS: Aspirin Enteric Coated 81 MG Tablet PO SCH (08:41)
[2016-12-29] MEDS: Budesonide/Formoterol 160/4.5 MDI IH SCH ×2 (10:34→22:29)
[2016-12-29] MEDS: Tiotropium 18 MCG inhalation IH SCH (10:34)
[2016-12-29] MEDS: MethylPREDNISolone 40 MG/ML VIAL IVP SCH ×2 (11:11→22:53)
[2016-12-29] MEDS: Levofloxacin 750 MG/150 ML 750 MG/150 ML BAG IVPB SCH (11:11)
--- NOTE | 2016-12-29 13:31 | Internal Med Progress Note ---
Date of Encounter: 12/29/16 Time of Encounter: 10:50 - Assessment and plan (1) Acute and chronic respiratory failure Current Visit: No Status: Acute Assessment and plan: At her baseline oxygen requirements most of the time. Continue to titrate as needed. Qualifiers: Respiratory failure complication: hypoxia Qualified Code(s): J96.21 - Acute and chronic respiratory failure with hypoxia (2) Acute exacerbation of chronic obstructive airways disease Current Visit: No Status: Acute Assessment and plan: Change abx to IV Levaquin. Continue steroids, aerosols, mucolytics, oxygen. (3) HTN (hypertension), benign Current Visit: Yes Status: Chronic Assessment and plan: Essentially controlled. Will adjust meds if needed. (4) CAD (coronary artery disease) Current Visit: No Status: Chronic Assessment and plan: Continue routine home meds. Qualifiers: Coronary Disease-Associated Artery/Lesion type: [place] artery [place] vs. transplanted heart: [place] heart Associated angina: without angina Qualified Code(s): I25.10 - Atherosclerotic heart disease of [place] coronary artery without angina pectoris (5) Abdominal bloating Current Visit: No Status: Chronic Assessment and plan: CT abdomen negative. Continue lactose free diet/lactase tabs. (6) Tracheobronchomalacia Current Visit: No Status: Chronic Assessment and plan: Supportive care. (7) Vocal cord dysfunction Current Visit: No Status: Chronic - Subjective Interval history: Ms Blackburn is currently admitted for acute on chronic hypoxic resp failure and COPD exac. She remains moderate to high risk due to potential for worsening resp status. Ms. Blackburn had a lot of issues with stridor last night/this AM. No fever or chills. Thinks needs abx change. No pain. No diarrhea. - Constitutional Vitals: Temp Pulse Resp BP Pulse Ox 97.4 F L 102 18 147/85 97 12/29/16 12:22 12/29/16 12:22 12/29/16 12:22 12/29/16 12:22 12/29/16 12:22 General appearance: Present: A&O X 3, answers questions appropriately - Head Head exam: Present: normocephalic - Eye Eye exam: Present: EOMI, conjuntiva pink - ENT ENT exam: Present: mucous membranes dry - Respiratory Respiratory exam: Present: decreased breath sounds. Absent: rales, rhonchi, wheezes Additional comments: Very diminished. Just had breathing treatment. - Cardiovascular Cardiovascular exam: Present: RRR. Absent: tachycardia - GI/Abdominal GI/Abdominal exam: Present: soft - Extremities Exam Extremities exam: Present: warm. Absent: tenderness - Neurological Exam Neurological exam: Present: alert, oriented X3, no focal deficits - Skin Skin exam: Present: dry, warm. Absent: rash Internal Medicine: Result - Labs CBC & Chem 7: 12/29/16 07:15 12/29/16 07:15 Labs: Short CBC 12/29/16 Range/Units 07:15 WBC 11.2 H (4.3-11.1) K/mcL Hgb 13.2 (11.5-15.4) g/dL Hct 41.0 (35.3-44.9) % Plt Count 385 (140-400) K/mcL Neutrophils # 9.7 H (1.6-8.9) K/mcL BMP 12/29/16 07:15 Sodium 135 L Potassium 4.4 Chloride 98 Carbon Dioxide 32 H BUN 12 Creatinine 0.59 Glucose 136 H Calcium 9.3 - ABG Interpretation ABG results: PT/INR, D-dimer D-Dimer 573 ng/mLFEU (0-500) H 12/26/16 18:56 - Impressions Impressions Abdomen CT 12/28/16 08:44 IMPRESSION: 1. No acute abnormality. D/ / Gustavo Winston MD / Gustavo Winston MD Interpreting Provider: Gustavo Winston MD Consult Discharge Plan - Plan Referrals: Paula Casiano CNP [Primary Care Provider] - 01/02/17 9:30 am ()
[2016-12-29] MEDS: ALPRAZolam 0.5 MG TABLET PO SCH (22:53)
[2016-12-29] MEDS: Fluticasone Propionate Nasal 50 MCG/SPRAY BOTTLE NS SCH (23:19)
[2016-12-30 03:52] LABS: Basophils % 0.2 %; Hematocrit 41.9 % (35.3-44.9); Hemoglobin 13.9 g/dL (11.5-15.4); Lymphocytes # 0.6 K/mcL (0.6-4.6); Lymphocytes % 5.9 %; Mean Corpuscular HGB Conc 33.2 g/dL (31.6-35.5); Mean Corpuscular Hemoglobin 30.5 pg (28.0-33.3); Mean Corpuscular Volume 91.9 fL (83.0-100.0); Mean Platelet Volume 8.4 fL (9.4-12.4); Monocytes # 0.4 K/mcL (0.0-1.3); Monocytes % 3.8 %; Neutrophils # 9.2 K/mcL (1.6-8.9); Platelet Count 402 K/mcL (140-400); Red Blood Count 4.56 M/mcL (3.82-4.97); Red Cell Distribution Width 12.3 % (11.5-14.5); Segmented Neutrophils % 89.1 %
[2016-12-30 04:14] LABS: BUN/Creatinine Ratio 17 (6-26); Blood Urea Nitrogen 11 mg/dL (7-20); Calcium 9.6 mg/dL (8.6-10.8); Carbon Dioxide 31 mEq/L (19-29); Chloride 99 mEq/L (98-109); Glucose 141 mg/dL (70-99); Osmolality,Calculated 286 (280-300); Potassium 4.6 mEq/L (3.5-4.5); Sodium 137 mEq/L (136-145); eGFR For African Americans > 60 (> 60); eGFR For Non-African Americans > 60 (> 60)
[2016-12-30] MEDS: ALPRAZolam 0.25 MG TABLET PO PRN ×2 (06:37→13:03)
[2016-12-30] MEDS: *HR* Enoxaparin 40 MG/0.4 ML SYRINGE SQ SCH (06:37)
[2016-12-30] MEDS: Levofloxacin 750 MG/150 ML 750 MG/150 ML BAG IVPB SCH (08:27)
[2016-12-30] MEDS: Aspirin Enteric Coated 81 MG Tablet PO SCH (08:27)
--- NOTE | 2016-12-30 09:28 | Internal Med Progress Note ---
<Guru Paredes - Last Filed: 12/30/16 10:14> Date of Encounter: 12/30/16 Time of Encounter: 09:15 - Assessment and plan (1) Acute exacerbation of chronic obstructive pulmonary disease Current Visit: Yes Status: Acute Assessment and plan: Improving. Patient reports history of seasonal allergies, most likely cause of her exacerbation Patient back on her home oxygen level of 2L Lungs CTAB with diminished breath sounds CXR: No active disease Patient reports change in sputum color from clear to green. Continue Steroids, duonebs patient switched to levequin Continue to monitor. (2) Anxiety Current Visit: Yes Status: Chronic Assessment and plan: Chronic, stable. -Continue home meds. (3) Bloating symptom Current Visit: Yes Status: Chronic Assessment and plan: Patient has chronic issue. She has had an extensive work up including CTs, EGDs , Gastric emptying studies, x rays, colonoscopies all of which have not shown cause for her symptoms. GE scan in 2014 showed 89% emptying at 4 hours which is not consitent She has been tried on numerous medications including Reglan, Protonix, Carafate, acidophilus and Activia . Negative SIBO and Fructose breath tests in 2014. H. pylori negative. continue PRN medications CT of Abd pelvis revealed no abnormalities. (4) HTN (hypertension), benign Current Visit: Yes Status: Chronic Assessment and plan: BP elevated. Unclear relation ship between when vitals are taken and when receiving breathign treatments Consider increasing patient's lopressor. - Subjective Interval history: Patient reports some improvement in her breathing. Complaining of Chronic abdominal bloating/discomfort. Also complaining her mouth is dry. Patient reports itching all over. Patient wondering how to get allergy to Iodinated contrast off of her allergy list despite admitting that when she got it years ago it gave her a headache and muscle cramps in her legs. She is still persevering on her abdominal bloating that has been worked up many times. Reassured her that the non contrast CT would have shown an obstruction if she had one. - Constitutional Vitals: Temp Pulse Resp BP Pulse Ox 98.1 F 93 21 163/99 92 12/30/16 06:48 12/30/16 06:48 12/30/16 06:48 12/30/16 06:48 12/30/16 06:48 General appearance: Present: A&O X 3, answers questions appropriately - Head Head exam: Present: atraumatic, normocephalic - Eye Eye exam: Present: PERRL, conjuntiva pink, sclera anicteric Pupils: Present: PERRL - Neck Neck exam general surgery: Present: supple, trachea midline - Respiratory Respiratory exam: Present: decreased breath sounds, prolonged expiratory phase. Absent: accessory muscle use, rales, rhonchi, wheezes - Cardiovascular Cardiovascular exam: Present: RRR, +S1, +S2. Absent: diastolic murmur, gallop, rubs, systolic murmur - GI/Abdominal GI/Abdominal exam: Present: normal bowel sounds, soft, no peritoneal signs. Absent: tenderness - Extremities Exam Extremities exam: Present: warm. Absent: calf tenderness, cyanotic, pedal edema - Neurological Exam Neurological exam: Present: alert, oriented X3. Absent: facial droop, speech deficit - Skin Skin exam: Present: dry, intact Internal Medicine: Result - Labs CBC & Chem 7: 12/30/16 03:21 12/30/16 03:21 Labs: Short CBC 12/30/16 Range/Units 03:21 WBC 10.3 (4.3-11.1) K/mcL Hgb 13.9 (11.5-15.4) g/dL Hct 41.9 (35.3-44.9) % Plt Count 402 H (140-400) K/mcL Neutrophils # 9.2 H (1.6-8.9) K/mcL BMP 12/30/16 03:21 Sodium 137 Potassium 4.6 H Chloride 99 Carbon Dioxide 31 H BUN 11 Creatinine 0.65 Glucose 141 H Calcium 9.6 - ABG Interpretation ABG results: PT/INR, D-dimer D-Dimer 573 ng/mLFEU (0-500) H 12/26/16 18:56 Consult Discharge Plan - Plan Referrals: Paula Casiano CNP [Primary Care Provider] - 01/02/17 9:30 am () <Josue Chen - Last Filed: 12/30/16 15:04> Date of Encounter: 12/30/16 - Assessment and plan (1) Acute and chronic respiratory failure Current Visit: No Status: Acute Qualifiers: Respiratory failure complication: hypoxia Qualified Code(s): J96.21 - Acute and chronic respiratory failure with hypoxia (2) Acute exacerbation of chronic obstructive airways disease Current Visit: No Status: Acute (3) Anxiety about health Current Visit: Yes Status: Chronic Assessment and plan: Supportive care. (4) HTN (hypertension), benign Current Visit: Yes Status: Chronic (5) CAD (coronary artery disease) Current Visit: No Status: Chronic Qualifiers: Coronary Disease-Associated Artery/Lesion type: [place] artery [place] vs. transplanted heart: [place] heart Associated angina: without angina Qualified Code(s): I25.10 - Atherosclerotic heart disease of [place] coronary artery without angina pectoris (6) Abdominal bloating Current Visit: No Status: Chronic (7) Tracheobronchomalacia Current Visit: No Status: Chronic (8) Vocal cord dysfunction Current Visit: No Status: Chronic - Constitutional Vitals: Temp Pulse Resp BP Pulse Ox 98.1 F 100 20 143/90 96 12/30/16 11:01 12/30/16 11:01 12/30/16 11:01 12/30/16 11:01 12/30/16 11:01 Internal Medicine: Result - Labs CBC & Chem 7: 12/30/16 03:21 12/30/16 03:21 Labs: Short CBC 12/30/16 Range/Units 03:21 WBC 10.3 (4.3-11.1) K/mcL Hgb 13.9 (11.5-15.4) g/dL Hct 41.9 (35.3-44.9) % Plt Count 402 H (140-400) K/mcL Neutrophils # 9.2 H (1.6-8.9) K/mcL BMP 12/30/16 03:21 Sodium 137 Potassium 4.6 H Chloride 99 Carbon Dioxide 31 H BUN 11 Creatinine 0.65 Glucose 141 H Calcium 9.6 - ABG Interpretation ABG results: PT/INR, D-dimer D-Dimer 573 ng/mLFEU (0-500) H 12/26/16 18:56 - Attending Attestation I examined this patient and my medical decision-making was reviewed with the Resident Physician on 12/30/16. I agree with the documented findings, disposition and treatment plan as described except to the extent set forth below. Ms Blackburn is currently admitted for acute exac COPD. She remains moderate to high risk due to continued resp. issues and potential for worsening. Ms. Blackburn is more dyspneic this AM. She is panicking and says she can't breathe through her nose. No fever or chills. Not much better with Levaquin but only one day. Still with complaints of bloating. Exam Alert. Mod resp distress Mucus membranes dry Heart tachy Lungs diminished but clear Abd soft I/P 1. Hypoxia 2. COPD Further diagnoses and plan as above.
[2016-12-30] MEDS: Budesonide/Formoterol 160/4.5 MDI IH SCH ×2 (10:10→22:16)
[2016-12-30] MEDS: Tiotropium 18 MCG inhalation IH SCH (10:12)
[2016-12-30] MEDS: MethylPREDNISolone 40 MG/ML VIAL IVP SCH (11:02)
[2016-12-30] MEDS: ALPRAZolam 0.5 MG TABLET PO SCH (21:30)
[2016-12-30] MEDS: Fluticasone Propionate Nasal 50 MCG/SPRAY BOTTLE NS SCH (21:32)
[2016-12-31 03:16] LABS: Hematocrit 39.4 % (35.3-44.9); Hemoglobin 12.9 g/dL (11.5-15.4); Immature Platelets 1.1 % (1.1-6.1); Mean Corpuscular HGB Conc 32.7 g/dL (31.6-35.5); Mean Corpuscular Hemoglobin 30.1 pg (28.0-33.3); Mean Corpuscular Volume 91.8 fL (83.0-100.0); Mean Platelet Volume 8.1 fL (9.4-12.4); Red Blood Count 4.29 M/mcL (3.82-4.97); Red Cell Distribution Width 12.2 % (11.5-14.5)
[2016-12-31 03:31] LABS: BUN/Creatinine Ratio 18 (6-26); Blood Urea Nitrogen 12 mg/dL (7-20); Calcium 9.1 mg/dL (8.6-10.8); Carbon Dioxide 33 mEq/L (19-29); Chloride 99 mEq/L (98-109); Glucose 106 mg/dL (70-99); Osmolality,Calculated 286 (280-300); Potassium 4.3 mEq/L (3.5-4.5); Sodium 138 mEq/L (136-145); eGFR For African Americans > 60 (> 60); eGFR For Non-African Americans > 60 (> 60)
[2016-12-31] MEDS: *HR* Enoxaparin 40 MG/0.4 ML SYRINGE SQ SCH (06:03)
[2016-12-31] MEDS ORDERED: predniSONE 20 MG TABLET PO SCH (07:00)
[2016-12-31] MEDS: Budesonide/Formoterol 160/4.5 MDI IH SCH (07:56)
[2016-12-31] MEDS: Tiotropium 18 MCG inhalation IH SCH (07:56)
--- NOTE | 2016-12-31 08:53 | Discharge Summary ---
<Guru Paredes - Last Filed: 12/31/16 13:13> Date of Encounter: 12/31/16 Time of Encounter: 08:53 - Discharge Diagnosis (1) Acute exacerbation of chronic obstructive pulmonary disease Priority: Primary Status: Acute (2) Anxiety Priority: Secondary Status: Chronic (3) Bloating symptom Priority: Secondary Status: Chronic (4) HTN (hypertension), benign Priority: Secondary Status: Chronic - Discharge Medications Prescriptions: Calcium Carbonate [Tums] 1,000 mg PO Q4HR PRN #120 tab PRN Reason: Heartburn levoFLOXacin [Levaquin] 750 mg PO DAILY #1 tablet Saliva Stimulant [Biotene Moisturizing Rinse] 1 spray PO Q2H PRN #1 bottle PRN Reason: Dry Mouth Home Medications: Budesonide/Formoterol 160/4.5 [Symbicort] 2 puff IH BID 12/19/14 [History] Oxygen 2.5 l NS AD 05/17/15 [History] Nitroglycerin [Nitrostat] 0.4 mg SL Q5M PRN 11/22/15 [History] Acetaminophen [Tylenol] 1,000 mg PO Q6HR PRN 12/20/15 [History] ALPRAZolam [Xanax 0.25 MG Tablet] 0.25 mg PO TID PRN 01/04/16 [History] Albuterol Neb [Proventil Neb] 2.5 mg IH QID 01/04/16 [History] Tiotropium [Spiriva] 18 mcg IH 0800 01/04/16 [History] HYDROcodone/Acet 5/325 mg [[place] 5-325 mg] 1 tab PO TID PRN 02/26/16 [History] Ondansetron ODT [Zofran ODT] 4 mg SL Q8HR PRN 02/26/16 [History] Bisacodyl [Dulcolax] 10 mg RC DAILY PRN 05/03/16 [History] Fluticasone Propionate Nasal [Flonase] 1 spr NS HS 05/03/16 [History] Metoprolol [Lopressor] 12.5 mg PO BID 05/03/16 [History] Albuterol Sulfate [Proair Hfa] 2 puff IH Q4H PRN 11/17/16 [History] Aspirin [Lo-Dose Aspirin EC] 81 mg PO DAILY 11/17/16 [History] Diclofenac Sodium [Voltaren] 1 appl TP QID PRN 11/17/16 [History] Lactulose 20 gm PO DAILY PRN 11/17/16 [History] Mv,Fe,Min/Lutein [A Thru Z [employer] Tablet] 1 tab PO DAILY 11/17/16 [ History] Polyethylene Glycol 3350 [MiraLAX] 17 gm PO DAILY PRN 11/17/16 [History] Omeprazole [PriLOSEC] 20 mg PO BID #60 11/19/16 [Rx] ALPRAZolam [Xanax 0.5 MG Tablet] 0.5 mg PO HS 12/26/16 [History] Oxymetazoline HCl [Long Acting Nasal [place]] 1 spray NS TID PRN 12/26/16 [History ] Simethicone [Gas-X] 80 mg PO QID PRN 12/26/16 [History] Syringe W-Needle,Disposab,1 ml [Allergy Syringe] 1 each MC QWEEK 12/26/16 [ History] Calcium Carbonate [Tums] 1,000 mg PO Q4HR PRN #120 tab 12/31/16 [Rx] Saliva Stimulant [Biotene Moisturizing Rinse] 1 spray PO Q2H PRN #1 bottle 12/31 [Rx] levoFLOXacin [Levaquin] 750 mg PO DAILY #1 tablet 12/31/16 [Rx] Allergies/Adverse Reactions: 3 Allergy/AdvReac Type Severity Reaction Status Date / Time acetylcysteine Allergy Severe Anaphylaxis Verified 02/26/16 09:32 Iodinated Contrast- Oral and Allergy See Verified 02/26/16 09:32 IV Dye Comments [Iodinated Contrast Media - IV Dye] ramelteon [From Rozerem] Allergy Difficulty Verified 02/26/16 09:32 Breathing Amoxicillin [From Augmentin] AdvReac Intermediate Nausea Verified 02/26/16 09:32 azithromycin [From Zithromax] AdvReac Intermediate Nausea Verified 02/26/16 09: 32 clavulanic acid AdvReac Intermediate Nausea Verified 02/26/16 09:32 [From Augmentin] dexlansoprazole AdvReac Mild Headache Verified 02/26/16 09:32 [From Dexilant] prednisone AdvReac Mild See Verified 02/26/16 09:32 Comments sertraline [From Zoloft] AdvReac Mild Depression Verified 02/26/16 09:32 Tetracycline AdvReac Mild Nausea Verified 02/26/16 09:32 Varenicline [From Chantix] AdvReac Mild Nightmare Verified 02/26/16 09:32 Procedures/tests Complete & Pending: Procedures Performed prior 72 hours Category Date Time Status CT abdomen wo no iv no oral [CT] Routine Cat Scan 12/28/16 08:44 Completed CXR: FINDINGS: Cardiomediastinal silhouette is unchanged. No pneumothorax or effusion. The lungs are clear. No acute osseous abnormality. XR/XR chest 1V portable IMPRESSION: No acute cardiopulmonary disease. CT abd: FINDINGS: Lower Chest: Motion artifact degrades image quality. There is bibasilar scarring and/or atelectasis. Emphysema involves the bilateral lungs. Coronary artery calcifications are a marker of atherosclerosis. Organs: The unenhanced there is no hydronephrosis or obstructive uropathy. Liver, spleen, pancreas, adrenal glands and kidneys are unchanged. Status post cholecystectomy. The spleen is atrophic. GI/Bowel: There is no bowel obstruction. Peritoneum/Retroperitoneum: There is no evidence of free fluid or adenopathy. Diffuse atherosclerosis involves the abdominal aorta and bilateral common iliac arteries. Bones/Soft Tissues: Degenerative changes involve the thoracolumbar spine. There is grade 1 anterolisthesis of L4 on L5. The bones are demineralized. No change in the old compression fracture involving superior endplate of T12. Injection granuloma with subcutaneous emphysema is present in the anterior right upper abdominal wall. CT/CT abdomen wo no iv no oral IMPRESSION: 1. No acute abnormality. Date of admission: 12/26/16 21:36 Primary care physician: Paula Casiano, Consults: 12/26/16 22:23 Consult to Nutrition [CONS] Routine Comment: Consulting Provider: NUTRITION Reason for Dietary Consult: MST Score Discharging clinician: Guru Paredes Anticipated date of discharge: 12/31/16 - Patient Status Disposition: Home, Self-Care Condition: Fair Functional capacity at discharge: uses cane/walker Overall status at discharge: patient is progressing back to baseline - Discharge Instructions Instructions: Mouthwash (Into the mouth), Chronic Obstructive Pulmonary Disease (DC) Follow Up With: Paula Casiano, [employer] [Primary Care Provider] - 01/02/17 9:30 am () Additional Instructions: Please follow up with your primary care provider within 1 week of discharge. Please resume your home medications. Please take your 1 day of oral levaquin tomorrow to complete your course. Please complete your prednisone taper Please return to the hospital if you experience any new or worsening symptoms. - Diet and Activity Activity: resume usual activities as tolerated Diet: advance to your usual diet Interval History: Patient reports that her breathing is at baseline and she feels ready to go home. Hospital course: Ms. Blackburn is a 71 year old female c PMHx of asthma, cancer, cardiomyopathy, CHF, COPD, coronary artery disease, GERD, hyperlipidemia, hypertension, myocardial infarction, osteoporosis, pulmonary embolus, anxiety, and depression who reported to the hospital c/o SOB. She was admitted to the hospital and worked up and found to have a COPD exacerbation. Patient was treated with antibiotics starting with azithromycin, then transitioning to levaquin, Duoneb treatments and Steroids. Patient also complained of bloating. This has been a chronic issue for her. She got a CT abd pelvis during this stay which was normal. Her breathing improved and she was discharged home on her home medications. - Time Spent with Patient Total time spent providing and/or coordinating discharge services: 40 minutes. - Constitutional Vitals: Temp Pulse Resp BP Pulse Ox 98.3 F 94 16 145/85 98 12/31/16 06:38 12/31/16 06:38 12/31/16 06:38 12/31/16 06:38 12/31/16 06:38 General appearance: Present: A&O X 3, answers questions appropriately - Head Head exam: Present: atraumatic, normocephalic - Eye Eye exam: Present: PERRL, conjuntiva pink, sclera anicteric Pupils: Present: PERRL - Neck Neck exam general surgery: Present: supple, trachea midline - Respiratory Respiratory exam: Present: decreased breath sounds, CTAB. Absent: accessory muscle use, rales, rhonchi, wheezes - Cardiovascular Cardiovascular exam: Present: RRR, +S1, +S2. Absent: diastolic murmur, gallop, rubs, systolic murmur - GI/Abdominal GI/Abdominal exam: Present: normal bowel sounds, soft, no peritoneal signs. Absent: tenderness - Extremities Exam Extremities exam: Present: warm. Absent: calf tenderness, cyanotic, pedal edema - Neurological Exam Neurological exam: Present: alert, oriented X3. Absent: facial droop, speech deficit - Skin Skin exam: Present: dry, intact <Anat,Brett P - Last Filed: 12/31/16 18:09> Date of Encounter: 12/31/16 Date of admission: 12/26/16 21:36 Primary care physician: Paula Casiano, Consults: 12/26/16 22:23 Consult to Nutrition [CONS] Routine Comment: Consulting Provider: NUTRITION Reason for Dietary Consult: MST Score Hospital course: Ms. Blackburn is a 71 year old female - Time Spent with Patient Total time spent providing and/or coordinating discharge services: - Constitutional Vitals: Temp Pulse Resp BP Pulse Ox 97.9 F 92 16 139/87 98 12/31/16 10:48 12/31/16 10:48 12/31/16 10:48 12/31/16 10:48 12/31/16 10:48 - Attending Attestation I examined this patient and my medical decision-making was reviewed with the Resident Physician. I agree with the documented findings, disposition and treatment plan as described except to the extent set forth below.
[2016-12-31] MEDS: Aspirin Enteric Coated 81 MG Tablet PO SCH (08:57)
[2016-12-31] MEDS: Levofloxacin 750 MG/150 ML 750 MG/150 ML BAG IVPB SCH (08:58)
[2016-12-31] MEDS: ALPRAZolam 0.25 MG TABLET PO PRN ×2 (09:03→14:36)
[2016-12-31 10:49] VITALS: BP 139/87
--- NOTE | 2016-12-31 11:14 | Physician Discharge Referral ---
Home Health/Hosp Referral Info Transfer to: Home Health Provider in Charge Post Discharge: PCP - Diagnosis (1) Acute exacerbation of chronic obstructive pulmonary disease Priority: Primary Status: Acute (2) Anxiety Priority: Secondary Status: Chronic (3) Bloating symptom Priority: Secondary Status: Chronic (4) HTN (hypertension), benign Priority: Secondary Status: Chronic - Respiratory Orders Oxygen / L per min (2L) Smoking Cessation: Smoking cessation has been advised. For more information, call the [place] Tobacco Quit Line at 5-229-OWYS-NOW. - Diet/Nutrition Diet/Nutrition Orders: Regular (Lactose free) - Activity Activity Orders: Up ad tanja, Walker - Services Needed Following services are medically necessary services: Nursing, Home Health Aide - Transfer Medications Prescriptions: Calcium Carbonate [Tums] 1,000 mg PO Q4HR PRN #120 tab PRN Reason: Heartburn Saliva Stimulant [Biotene Moisturizing Rinse] 1 spray PO Q2H PRN #1 bottle PRN Reason: Dry Mouth Home Medications: Budesonide/Formoterol 160/4.5 [Symbicort] 2 puff IH BID 12/19/14 [History] Oxygen 2.5 l NS AD 05/17/15 [History] Nitroglycerin [Nitrostat] 0.4 mg SL Q5M PRN 11/22/15 [History] Acetaminophen [Tylenol] 1,000 mg PO Q6HR PRN 12/20/15 [History] ALPRAZolam [Xanax 0.25 MG Tablet] 0.25 mg PO TID PRN 01/04/16 [History] Albuterol Neb [Proventil Neb] 2.5 mg IH QID 01/04/16 [History] Tiotropium [Spiriva] 18 mcg IH 0800 01/04/16 [History] HYDROcodone/Acet 5/325 mg [[place] 5-325 mg] 1 tab PO TID PRN 02/26/16 [History] Ondansetron ODT [Zofran ODT] 4 mg SL Q8HR PRN 02/26/16 [History] Bisacodyl [Dulcolax] 10 mg RC DAILY PRN 05/03/16 [History] Fluticasone Propionate Nasal [Flonase] 1 spr NS HS 05/03/16 [History] Metoprolol [Lopressor] 12.5 mg PO BID 05/03/16 [History] Albuterol Sulfate [Proair Hfa] 2 puff IH Q4H PRN 11/17/16 [History] Aspirin [Lo-Dose Aspirin EC] 81 mg PO DAILY 11/17/16 [History] Diclofenac Sodium [Voltaren] 1 appl TP QID PRN 11/17/16 [History] Lactulose 20 gm PO DAILY PRN 11/17/16 [History] Mv,Fe,Min/Lutein [A Thru Z Select Women's Tablet] 1 tab PO DAILY 11/17/16 [ History] Polyethylene Glycol 3350 [MiraLAX] 17 gm PO DAILY PRN 11/17/16 [History] Omeprazole [PriLOSEC] 20 mg PO BID #60 11/19/16 [Rx] ALPRAZolam [Xanax 0.5 MG Tablet] 0.5 mg PO HS 12/26/16 [History] Oxymetazoline HCl [Long Acting Nasal [place]] 1 spray NS TID PRN 12/26/16 [History ] Simethicone [Gas-X] 80 mg PO QID PRN 12/26/16 [History] Syringe W-Needle,Disposab,1 ml [Allergy Syringe] 1 each MC QWEEK 12/26/16 [ History] Calcium Carbonate [Tums] 1,000 mg PO Q4HR PRN #120 tab 12/31/16 [Rx] Saliva Stimulant [Biotene Moisturizing Rinse] 1 spray PO Q2H PRN #1 bottle 12/31 [Rx] Allergies/Adverse Reactions: 3 Allergy/AdvReac Type Severity Reaction Status Date / Time acetylcysteine Allergy Severe Anaphylaxis Verified 02/26/16 09:32 Iodinated Contrast- Oral and Allergy See Verified 02/26/16 09:32 IV Dye Comments [Iodinated Contrast Media - IV Dye] ramelteon [From Rozerem] Allergy Difficulty Verified 02/26/16 09:32 Breathing Amoxicillin [From Augmentin] AdvReac Intermediate Nausea Verified 02/26/16 09:32 azithromycin [From Zithromax] AdvReac Intermediate Nausea Verified 02/26/16 09: 32 clavulanic acid AdvReac Intermediate Nausea Verified 02/26/16 09:32 [From Augmentin] dexlansoprazole AdvReac Mild Headache Verified 02/26/16 09:32 [From Dexilant] prednisone AdvReac Mild See Verified 02/26/16 09:32 Comments sertraline [From Zoloft] AdvReac Mild Depression Verified 02/26/16 09:32 Tetracycline AdvReac Mild Nausea Verified 02/26/16 09:32 Varenicline [From Chantix] AdvReac Mild Nightmare Verified 02/26/16 09:32 Certification: Further, I certify that my clinical findings support that this patient is homebound (i.e. absences from home require considerable and taxing effort and are for medical reasons or pent[employer] services or infrequently or short duration when for other reasons) because: Homebound Reason: Patient requires assistance of a person or device to safely leave home, Leaving home requires considerable and taxing effort due to condition, Severity of cardiac or pulmonary status limits activity tolerance Attestation: My signature below is to certify that this patient is under my care and that I, or nurse practitioner, or a physician's conventions assistant working with me, has a face-to -face encounter with this patient.
[2017-01-01] MEDS ORDERED: levoFLOXacin 750 MG TABLET PO SCH (11:00)
== END 2016-12-31 15:14 | disposition home or self-care (01) | DRG 190 ==
LOC: EMEROO 18:36 → 2ANU 18:36 → SUATTDRO 21:36 → 2ANU 21:50
PROVIDERS: ADMIT Internal Medicine Hematology & Oncology; ATTEND Internal Medicine

== ENCOUNTER 2017-01-01 17:50 | Inpatient (IN) ==
[2017-01-01] MEDS ORDERED: Dexamethasone 4 MG/ML VIAL IVP ONE (17:55)
[2017-01-01] MEDS ORDERED: Ipratropium/Albuterol Neb 3 ML ONE (18:02)
[2017-01-01] MEDS ORDERED: Ipratropium/Albuterol Neb 3 ML IH ONE (18:04)
[2017-01-01] MEDS: Ipratropium/Albuterol Neb 3 ML IH ONE ×2 (18:09→18:10)
[2017-01-01] MEDS: Racepinephrine Neb 0.5 ML VIAL IH ONE ×2 (18:09)
--- NOTE | 2017-01-01 18:25 | Emergency Department Note ---
Disposition Clinical Impression: COPD exacerbation, Anxiety, Respiratory distress, Tracheomalacia Disposition: Admitted As Inpatient Condition: Fair Time of Disposition: 20:50 SOB HPI - General Chief Complaint: ED Shortness of Breath/Dyspnea Stated Complaint: VERO Time Seen by Provider: 01/01/17 17:53 Source: patient Mode of arrival: EMS Limitations: no limitations Nursing Notes Reviewed: Yes Vital Signs Reviewed: Yes - History of Present Illness 71-year-old female presents the ED complaining of shortness of breath. 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 She has a history of COPD and was near hospice care in 2016 admission. She states that since she has been home she has not felt well and has had a very hard time breathing and she tried one DuoNeb treatment while at home and that made no progress for her she then decided to call EMS who transferred her also gave her 1 DuoNeb and that did not help her very much at all either. She said this happened to her before. Physician states that she has never had to be intubated but she does have many problems with her airway. Patient is also complaining of abdominal bloating which is a chronic issue for her. She is not complaining of any chest pain, headache, blurry vision, changes in urination or bowel movements. She has no pain or tingling of the arms or legs. - Related Data Home Medications Medication Instructions Recorded Confirmed Budesonide/Formoterol 160/4.5 2 puff IH BID 12/19/14 01/01/17 [Symbicort] Oxygen 2.5 l NS AD 05/17/15 01/01/17 Nitroglycerin [Nitrostat] 0.4 mg SL Q5M PRN 11/22/15 01/01/17 Acetaminophen [Tylenol] 1,000 mg PO Q6HR PRN 12/20/15 01/01/17 ALPRAZolam [Xanax 0.25 MG Tablet] 0.25 mg PO TID PRN 01/04/16 01/01/17 Albuterol Neb [Proventil Neb] 2.5 mg IH QID 01/04/16 01/01/17 Tiotropium [Spiriva] 18 mcg IH 0800 01/04/16 01/01/17 HYDROcodone/Acet 5/325 mg [[place] 1 tab PO TID PRN 02/26/16 01/01/17 5-325 mg] Ondansetron ODT [Zofran ODT] 4 mg SL Q8HR PRN 02/26/16 01/01/17 Bisacodyl [Dulcolax] 10 mg RC DAILY PRN 05/03/16 01/01/17 Fluticasone Propionate Nasal 1 spr NS HS 05/03/16 01/01/17 [Flonase] Metoprolol [Lopressor] 12.5 mg PO BID 05/03/16 01/01/17 Albuterol Sulfate [Proair Hfa] 2 puff IH Q4H PRN 11/17/16 01/01/17 Aspirin [Lo-Dose Aspirin EC] 81 mg PO DAILY 11/17/16 01/01/17 Diclofenac Sodium [Voltaren] 1 appl TP QID PRN 11/17/16 01/01/17 Lactulose 20 gm PO DAILY PRN 11/17/16 01/01/17 Mv,Fe,Min/Lutein [A Thru Z Select 1 tab PO DAILY 11/17/16 01/01/17 Women's Tablet] Polyethylene Glycol 3350 [MiraLAX] 17 gm PO DAILY PRN 11/17/16 01/01/17 ALPRAZolam [Xanax 0.5 MG Tablet] 0.5 mg PO HS 12/26/16 01/01/17 Oxymetazoline HCl [Long Acting 1 spray NS TID PRN 12/26/16 01/01/17 Nasal [place]] Simethicone [Gas-X] 80 mg PO QID PRN 12/26/16 01/01/17 Syringe W-Needle,Disposab,1 ml 1 each MC QWEEK 12/26/16 01/01/17 [Allergy Syringe] Previous Rx's Medication Instructions Recorded Omeprazole [PriLOSEC] 20 mg PO BID #60 11/19/16 Calcium Carbonate [Tums] 1,000 mg PO Q4HR PRN #120 tab 12/31/16 Saliva Stimulant [Biotene 1 spray PO Q2H PRN #1 bottle 12/31/16 Moisturizing Rinse] levoFLOXacin [Levaquin] 750 mg PO DAILY #1 tablet 12/31/16 Allergies Allergy/AdvReac Type Severity Reaction Status Date / Time acetylcysteine Allergy Severe Anaphylaxis Verified 02/26/16 09:32 Iodinated Contrast- Oral and Allergy See Verified 02/26/16 09:32 IV Dye Comments [Iodinated Contrast Media - IV Dye] ramelteon [From Rozerem] Allergy Difficulty Verified 02/26/16 09:32 Breathing Amoxicillin [From Augmentin] AdvReac Intermediate Nausea Verified 02/26/16 09:32 azithromycin [From Zithromax] AdvReac Intermediate Nausea Verified 02/26/16 09: 32 clavulanic acid AdvReac Intermediate Nausea Verified 02/26/16 09:32 [From Augmentin] dexlansoprazole AdvReac Mild Headache Verified 02/26/16 09:32 [From Dexilant] prednisone AdvReac Mild See Verified 02/26/16 09:32 Comments sertraline [From Zoloft] AdvReac Mild Depression Verified 02/26/16 09:32 Tetracycline AdvReac Mild Nausea Verified 02/26/16 09:32 Varenicline [From Chantix] AdvReac Mild Nightmare Verified 02/26/16 09:32 Constitutional: Denies: fever, chills, weakness, weight change Eyes: Denies: eye pain, eye discharge, vision change ENT ED: Denies: ear pain, throat pain, dental pain, hearing loss, epistaxis, congestion, dysphagia Cardiovascular: Denies: chest pain, palpitations, dyspnea on exertion, edema, syncope Respiratory: Reports: cough, wheezes, stridor. Denies: hemoptysis Gastrointestinal: Denies: abdominal pain, nausea, vomiting, diarrhea, constipation, hematemesis, melena, hematochezia Genitourinary: Denies: dysuria, frequency, hematuria, discharge Musculoskeletal: Denies: back pain, neck pain, arthralgia, myalgia Integumentary: Denies: rash, abrasion, lesions Neurological: Denies: headache, weakness, numbness, paresthesias, confusion, abnormal gait, vertigo Psychiatric: Denies: anxiety, depression, suicidal thoughts, homicidal thoughts , auditory hallucinations, visual hallucinations Endocrine: Denies: fatigue Hematological/Lymphatic: Denies: easy bleeding, easy bruising Allergic/Immunologic: Denies: facial swelling, urticaria Past Medical History - Past Medical History Medical history: Reports: asthma, cancer, cardiomyopathy, CHF, COPD, coronary artery disease, GERD, hyperlipidemia, myocardial infarction, pulmonary embolus, other Surgical history: Reports: angioplasty/stent, cancer surgery, cataract, cholecystectomy, sinus surgery Psychiatric history: Reports: anxiety, depression [employer] history: Reports: other - Social History Smoking Status: Former smoker Smokeless Tobacco Status: No Alcohol use: Reports: none Drug use: Reports: none Physical Exam - General General appearance: alert - Head Head exam: atraumatic, normocephalic, normal inspection - Eye Eye exam: Present: normal appearance, PERRL, EOMI - ENT ENT exam: normal exam, normal oropharynx, mucous membranes moist - Chest Chest inspection: Present: normal inspection, symmetric chest wall rise - Respiratory Respiratory exam: Present: respiratory distress, wheezes (Patient had bilateral wheezes throughout and was very tight during breathing.), stridor (Upon arrival patient did have audible stridor.), accessory muscle use - Cardiovascular Cardiovascular exam: Present: regular rate, normal rhythm, normal heart sounds - Abdominal Exam Abdominal exam: Present: soft, Non-Tender, distention (Noticeable distention but not pain on palpation.). 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 Upon arrival due to the stridor we immediately put her on racemic epi nebulized and is following that with triple DuoNeb treatments. We will do normal difficulty breathing workup including chest x-ray, basic laboratories. After evaluating her and she was not doing better after the racemic epi continued to have a hard time breathing we decided that starting her on BiPAP was the next necessary thing. She was started on that and the 2 nebs were given through the BiPAP machine. We also ordered an ABG before she was placed on BiPAP. She was given Decadron and started on Levaquin. At this time she needs to be admitted. We have paged the hospitalist at this time. - Consultations Consultation #1: Spoke with the hospitalist Dr. Copeland who agreed to accept the patient to his service. I splinted in the history and physical as well as the assessment and plan. He said he would take them as long as anesthesia was consult it and would be able to intubate the patient if needed. Admitted to the ICU. Time: 19:50 Consultation #2: I consulted the anesthesia and spoke with Dr. Moran who saw the patient and said that they would consult and they would be in house all night. This was then relayed to Dr. Copeland. Time: 19:55 Vital Signs Temperature 97.8 F 01/01/17 17:54 Pulse Rate 140 01/01/17 17:54 Respiratory Rate 32 01/01/17 17:54 Blood Pressure 196/114 01/01/17 17:54 O2 Sat by Pulse Oximetry 98 01/01/17 17:54 Temperature 98.2 F 01/02/17 07:52 Pulse Rate 110 01/02/17 07:00 Respiratory Rate 14 01/02/17 07:29 Blood Pressure 94/82 01/02/17 07:29 O2 Sat by Pulse Oximetry 100 01/02/17 07:29 Oxygen Delivery Oxygen Delivery Bipap Shortness of Breath/Dyspnea - MDM Narrative Medical decision making narrative: 71-year-old female presented to the ED for respiratory distress. She does have a history of tracheal and bronchial malacia. She also has history of COPD, vocal cord dysfunction. Upon arrival she had 2 DuoNeb treatments at that time with no relief. She was stridulous upon arrival so we immediately put her on racemic epi via nebulizer and gave her echo drawn. Racemic epi did help her stridor but she now was having a COPD exacerbation and on exam was very tight while listening. We followed with a DuoNeb treatment which she did not do well with silly medially placed her on BiPAP with 2 nebs in line with it. She was having a work of breathing was also very anxious so we decided to start her on Ativan 0.5 mg to help with her anxiety may be slow her breathing down. Due to her chronic tracheal and vocal cord issues we are trying to stay away from intubation at this time and try to keep her oxygenated and help her work of breathing with BiPAP and not in abating and placing on event. Patient is still alert and oriented 3. Chest x-ray showed no signs of pneumothorax or consolidations or any signs of pneumonia. She did have a leukocytosis but all other Basic labs are normal. We did do an ABG that showed her to be acidotic at 7.15 with an elevated CO2. The ABG was done prior to her being on BiPAP. At this time we are going to admit the patient to the hospitalist service I spoke with the hospitalist who agreed to admit the patient. To the ICU. Patient is being admitted in a fair condition still on BiPAP but satting at 99% . She is hypertensive and tachycardic and tachypneic. Chest X-Ray 01/01/17 17:53 IMPRESSION: No acute process. D/ / Lux Antoine MD / Lux Antoine MD Interpreting Provider: Lux Antoine MD - Medical Records Medical records reviewed: Yes I reviewed the patient's medical records. - Lab Data Lab results reviewed: Yes I reviewed the patient's lab results. Result diagrams: 01/02/17 03:14 01/02/17 03:14 Lab Results 01/01/17 01/01/17 01/01/17 Range/Units 18:18 18:18 18:18 WBC 17.1 H D (4.3-11.1) K/mcL RBC 4.76 (3.82-4.97) M/mcL Hgb 14.2 (11.5-15.4) g/dL Hct 43.9 (35.3-44.9) % MCV 92.2 (83.0-100.0) fL MCH 29.8 (28.0-33.3) pg MCHC 32.3 (31.6-35.5) g/dL RDW 12.3 (11.5-14.5) % Plt Count 459 H (140-400) K/mcL MPV 8.2 L (9.4-12.4) fL Immature Gran % 2.2 (0-4) % Seg Neutrophils % 58.0 % Lymphocytes % 26.7 % Monocytes % 10.9 % Eosinophils % 1.6 % Basophils % 0.6 % Neutrophils # 9.9 H (1.6-8.9) K/mcL Lymphocytes # 4.6 (0.6-4.6) K/mcL Monocytes # 1.9 H (0.0-1.3) K/mcL Eosinophils # 0.3 (0.0-0.6) K/mcL Basophils # 0.1 (0.0-0.2) K/mcL Immature Plt Fraction 1.2 (1.1-6.1) % PT (9.4-12.1) Seconds INR APTT (26.0-36.0) Seconds ABG pH (7.32-7.45) pH Units ABG pCO2 (35-45) mmHg ABG pO2 (85-104) mmHg ABG HCO3 (21-27) mEq/L ABG Total CO2 (20-26) mEq/L ABG O2 Saturation (95-98) % ABG Base Excess (-2.0 to 3.0) mEq/L Blood Gas Modality Inspired O2 % Sodium 132 L (136-145) mEq/L Potassium 4.2 (3.5-4.5) mEq/L Chloride 96 L (98-109) mEq/L Carbon Dioxide 28 (19-29) mEq/L BUN 16 (7-20) mg/dL Creatinine 0.74 (0.57-1.11) mg/dL Est GFR ( Amer) > 60 (> 60) Est GFR (Non-Af Amer) > 60 (> 60) BUN/Creatinine Ratio 22 (6-26) Glucose 141 H (70-99) mg/dL Calculated Osmolality 278 L (280-300) Lactic Acid 1.1 (0.5-2.2) mmol/L Calcium 9.0 (8.6-10.8) mg/dL Troponin I (0-0.03) ng/mL B-Natriuretic Peptide (0-100) pg/mL 01/01/17 01/01/17 01/01/17 Range/Units 18:18 18:18 18:18 WBC (4.3-11.1) K/mcL RBC (3.82-4.97) M/mcL Hgb (11.5-15.4) g/dL Hct (35.3-44.9) % MCV (83.0-100.0) fL MCH (28.0-33.3) pg MCHC (31.6-35.5) g/dL RDW (11.5-14.5) % Plt Count (140-400) K/mcL MPV (9.4-12.4) fL Immature Gran % (0-4) % Seg Neutrophils % % Lymphocytes % % Monocytes % % Eosinophils % % Basophils % % Neutrophils # (1.6-8.9) K/mcL Lymphocytes # (0.6-4.6) K/mcL Monocytes # (0.0-1.3) K/mcL Eosinophils # (0.0-0.6) K/mcL Basophils # (0.0-0.2) K/mcL Immature Plt Fraction (1.1-6.1) % PT 10.5 (9.4-12.1) Seconds INR 1.0 APTT 27.5 (26.0-36.0) Seconds ABG pH (7.32-7.45) pH Units ABG pCO2 (35-45) mmHg ABG pO2 (85-104) mmHg ABG HCO3 (21-27) mEq/L ABG Total CO2 (20-26) mEq/L ABG O2 Saturation (95-98) % ABG Base Excess (-2.0 to 3.0) mEq/L Blood Gas Modality Inspired O2 % Sodium (136-145) mEq/L Potassium (3.5-4.5) mEq/L Chloride (98-109) mEq/L Carbon Dioxide (19-29) mEq/L BUN (7-20) mg/dL Creatinine (0.57-1.11) mg/dL Est GFR ( Amer) (> 60) Est GFR (Non-Af Amer) (> 60) BUN/Creatinine Ratio (6-26) Glucose (70-99) mg/dL Calculated Osmolality (280-300) Lactic Acid (0.5-2.2) mmol/L Calcium (8.6-10.8) mg/dL Troponin I 0.01 (0-0.03) ng/mL B-Natriuretic Peptide 91 (0-100) pg/mL 01/01/17 Range/Units 18:38 WBC (4.3-11.1) K/mcL RBC (3.82-4.97) M/mcL Hgb (11.5-15.4) g/dL Hct (35.3-44.9) % MCV (83.0-100.0) fL MCH (28.0-33.3) pg MCHC (31.6-35.5) g/dL RDW (11.5-14.5) % Plt Count (140-400) K/mcL MPV (9.4-12.4) fL Immature Gran % (0-4) % Seg Neutrophils % % Lymphocytes % % Monocytes % % Eosinophils % % Basophils % % Neutrophils # (1.6-8.9) K/mcL Lymphocytes # (0.6-4.6) K/mcL Monocytes # (0.0-1.3) K/mcL Eosinophils # (0.0-0.6) K/mcL Basophils # (0.0-0.2) K/mcL Immature Plt Fraction (1.1-6.1) % PT (9.4-12.1) Seconds INR APTT (26.0-36.0) Seconds ABG pH 7.13 L* (7.32-7.45) pH Units ABG pCO2 100 H* (35-45) mmHg ABG pO2 227 H (85-104) mmHg ABG HCO3 33 H (21-27) mEq/L ABG Total CO2 36.4 H (20-26) mEq/L ABG O2 Saturation 100 H (95-98) % ABG Base Excess 0.5 (-2.0 to 3.0) mEq/L Blood Gas Modality BIPAP Inspired O2 55 % Sodium (136-145) mEq/L Potassium (3.5-4.5) mEq/L Chloride (98-109) mEq/L Carbon Dioxide (19-29) mEq/L BUN (7-20) mg/dL Creatinine (0.57-1.11) mg/dL Est GFR ( Amer) (> 60) Est GFR (Non-Af Amer) (> 60) BUN/Creatinine Ratio (6-26) Glucose (70-99) mg/dL Calculated Osmolality (280-300) Lactic Acid (0.5-2.2) mmol/L Calcium (8.6-10.8) mg/dL Troponin I (0-0.03) ng/mL B-Natriuretic Peptide (0-100) pg/mL - Radiology Data Radiology results reviewed: Yes I reviewed the patient's radiology results. - EKG Data EKG attestation: Yes I reviewed and interpreted this EKG. EKG results narrative: EKG done at 1544 and reviewed by myself and the attending shows sinus tachycardia at a rate of 131, SD interval 183, QRS 82, QTC 344 with a normal axis. No signs of ST changes or T-wave changes. No signs of heart strain, heart blocks, hypertrophy. No center. Obese S [place] syndrome. This compared with old EKG done on 12/26/16 which also shows sinus tachycardia with no acute changes. EKG shows normal: Reports: sinus rhythm, axis, intervals, QRS complexes, ST-T waves Rate: Reports: tachycardia Rhythm: Reports: NSR Webb/QRS: Reports: normal When compared to previous EKG there are: no significant changes Interpretation: Reports: no acute changes, unchanged when compared to prior tracing (date) Critical Care Time Critical Care Time: Yes Total Critical Care Time: 60 Attestation: The high probability of a clinically significant, sudden or life threatening deterioration of the [resp] system(s) required my full and direct attention, intervention and personal management. The aggregate critical care time was [60] minutes. This time is in addition to time spent performing reported procedures but includes the following: [x] Data Review and interpretation [x] Patient assessment and monitoring of vital signs [x] Documentation [x] Medication orders and management S.B.A.R. - S.B.A.R. Transition of Care: History of physical work splint to who agreed to accept the patient as long as anesthesia could be consulted and be available. He admitted the patient to the ICU. Situation: Demographics, MOA Background: Presenting Complaint Assessment: Vital Signs, Course and respsone to treatment, Exam Concerns, Patient/Family Expectation, Pertinant Lab Results, Outstanding Labs Recommendation: Barrier(s) to disposition, Recommendation based on pending studies, treatments, or consults S.B.A.R. Report Given to: Dr. Copeland [email or web address].RDavid Repor Time: 19:50 Attestation Statement - Attestation Attestation: I examined this patient and my medical decision-making was reviewed with the Resident Physician, Dr. Carr. I agree with the documented findings, disposition and treatment plan as described except to the extent set forth below. Patient is a 71-year-old white female who was just discharged earlier today following a COPD exacerbation. Patient states her breathing has gradually worsened throughout the day and she arrives in respiratory distress with tachycardia and hypoxia. Patient with increased work of breathing sitting on the cot leaning forward with audible wheezing on arrival. Patient with a history also of tracheomalasia and vocal cord dysfunction . Patient states she took her last dose of Levaquin when she arrived home today. She is still on steroids by prescription at home. Patient was placed on a facemask as she was complaining of nasal congestion was not comfortable with nasal cannula on arrival. Patient with good mental status conversational dyspnea upon answering questions. I agree with patient's physical exam findings as documented. Pt arrives with incr WOrK of breathing, audible wheezing, tachycardic and hypertensive. Patient very anxious and continued to complain of worsening breathing so we contacted respiratory and had patient given a racemic epi for initial faint stridor at rest, which resolved following epi. Next provided DuoNeb in-line with starting BiPAP, due to pt's incr work of breathing sand anxiety, O2 sats on suppl O2 remianed stable. Patient's slowly stabilized and improved with decreased work of breathing and stable O2 sats on BiPAP. Initial ABG prior to onset of bipap showed resp acidosis, with pCO2 of 100, but pt awake and alert, no decline in mental status, and continues to cooperate and dec work of breathing on Bipap, so will continue and observe pt closely. Chest x-ray is unremarkable. Patient with elevated white count of 17 with a left shift. We will cover the patient with IV antibiotics. EKG shows sinus tach, unchanged from previous EKG. Labs show an elev WBC with L shift. remainder of labs wnl. CXR wnl. Upon review of pt's medical records, she has hx of end stage COPD and has had palliative consults on more than one occasion but declined hospice care. Pt with sever GERD and this combined with her poor COPD has caused her vocal cord dysfxn. Pt has never been intubated, but on bipap frequently, and resp very familiar with her hx, know pt well. Discussed case with hospitalist, who accepted pt for admission, but requested consult by anesthesiology for assistance if pt requires intubation. Anesthesia consulted on pt while in ED. Pt's course remains guarded, but stable at time of admission.
[2017-01-01 18:32] LABS: Basophils # 0.1 K/mcL (0.0-0.2); Basophils % 0.6 %; Eosinophils # 0.3 K/mcL (0.0-0.6); Eosinophils % 1.6 %; Hematocrit 43.9 % (35.3-44.9); Hemoglobin 14.2 g/dL (11.5-15.4); Immature Granulocytes % 2.2 % (0-4); Immature Platelets 1.2 % (1.1-6.1); Lymphocytes # 4.6 K/mcL (0.6-4.6); Lymphocytes % 26.7 %; Mean Corpuscular HGB Conc 32.3 g/dL (31.6-35.5); Mean Corpuscular Hemoglobin 29.8 pg (28.0-33.3); Mean Corpuscular Volume 92.2 fL (83.0-100.0); Mean Platelet Volume 8.2 fL (9.4-12.4); Monocytes # 1.9 K/mcL (0.0-1.3); Monocytes % 10.9 %; Neutrophils # 9.9 K/mcL (1.6-8.9); Platelet Count 459 K/mcL (140-400); Red Blood Count 4.76 M/mcL (3.82-4.97); Red Cell Distribution Width 12.3 % (11.5-14.5)
[2017-01-01 18:43] LABS: BUN/Creatinine Ratio 22 (6-26); Blood Urea Nitrogen 16 mg/dL (7-20); Carbon Dioxide 28 mEq/L (19-29); Chloride 96 mEq/L (98-109); Glucose 141 mg/dL (70-99); Osmolality,Calculated 278 (280-300); Potassium 4.2 mEq/L (3.5-4.5); Sodium 132 mEq/L (136-145); eGFR For African Americans > 60 (> 60); eGFR For Non-African Americans > 60 (> 60)
[2017-01-01 18:44] LABS: ABG Base Excess 0.5 mEq/L (-2.0 to 3.0); ABG HCO3 33 mEq/L (21-27); ABG Oxygen Saturation 100 % (95-98); ABG PO2 227 mmHg (85-104); ABG TCO2 36.4 mEq/L (20-26)
[2017-01-01] MEDS ORDERED: *HR* LORazepam 2 MG/ML VIAL IVP ONE (18:46)
[2017-01-01 18:50] LABS: Blood Gas FiO2 55 %
[2017-01-01 18:51] LABS: ABG PH 7.13 pH Units (7.32-7.45)
[2017-01-01] MEDS: 0.9 % Sodium Chloride 1,000 ML IVC SCH (18:51)
[2017-01-01 18:52] LABS: ABG PCO2 100 mmHg (35-45)
[2017-01-01] MEDS ORDERED: Levofloxacin 750 MG/150 ML 750 MG/150 ML BAG IVPB ONE (19:00)
--- NOTE | 2017-01-01 19:57 | Anesthesia Evaluation PreOp ---
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 Any Significant HX Other Medical History: GERD Alcohol Use: none Drug use: none Medications and Allergies Budesonide/Formoterol 160/4.5 [Symbicort] 2 puff IH BID 12/19/14 [History] Oxygen 2.5 l NS AD 05/17/15 [History] Nitroglycerin [Nitrostat] 0.4 mg SL Q5M PRN 11/22/15 [History] Acetaminophen [Tylenol] 1,000 mg PO Q6HR PRN 12/20/15 [History] ALPRAZolam [Xanax 0.25 MG Tablet] 0.25 mg PO TID PRN 01/04/16 [History] Albuterol Neb [Proventil Neb] 2.5 mg IH QID 01/04/16 [History] Tiotropium [Spiriva] 18 mcg IH 0800 01/04/16 [History] HYDROcodone/Acet 5/325 mg [[place] 5-325 mg] 1 tab PO TID PRN 02/26/16 [History] Ondansetron ODT [Zofran ODT] 4 mg SL Q8HR PRN 02/26/16 [History] Bisacodyl [Dulcolax] 10 mg RC DAILY PRN 05/03/16 [History] Fluticasone Propionate Nasal [Flonase] 1 spr NS HS 05/03/16 [History] Metoprolol [Lopressor] 12.5 mg PO BID 05/03/16 [History] Albuterol Sulfate [Proair Hfa] 2 puff IH Q4H PRN 11/17/16 [History] Aspirin [Lo-Dose Aspirin EC] 81 mg PO DAILY 11/17/16 [History] Diclofenac Sodium [Voltaren] 1 appl TP QID PRN 11/17/16 [History] Lactulose 20 gm PO DAILY PRN 11/17/16 [History] Mv,Fe,Min/Lutein [A Thru Z [employer]'s Tablet] 1 tab PO DAILY 11/17/16 [ History] Polyethylene Glycol 3350 [MiraLAX] 17 gm PO DAILY PRN 11/17/16 [History] Omeprazole [PriLOSEC] 20 mg PO BID #60 11/19/16 [Rx] ALPRAZolam [Xanax 0.5 MG Tablet] 0.5 mg PO HS 12/26/16 [History] Oxymetazoline HCl [Long Acting Nasal [place]] 1 spray NS TID PRN 12/26/16 [History ] Simethicone [Gas-X] 80 mg PO QID PRN 12/26/16 [History] Syringe W-Needle,Disposab,1 ml [Allergy Syringe] 1 each MC QWEEK 12/26/16 [ History] Calcium Carbonate [Tums] 1,000 mg PO Q4HR PRN #120 tab 12/31/16 [Rx] Saliva Stimulant [Biotene Moisturizing Rinse] 1 spray PO Q2H PRN #1 bottle 12/31 [Rx] levoFLOXacin [Levaquin] 750 mg PO DAILY #1 tablet 12/31/16 [Rx] 3 Allergy/AdvReac Type Severity Reaction Status Date / Time acetylcysteine Allergy Severe Anaphylaxis Verified 02/26/16 09:32 Iodinated Contrast- Oral and Allergy See Verified 02/26/16 09:32 IV Dye Comments [Iodinated Contrast Media - IV Dye] ramelteon [From Rozerem] Allergy Difficulty Verified 02/26/16 09:32 Breathing Amoxicillin [From Augmentin] AdvReac Intermediate Nausea Verified 02/26/16 09:32 azithromycin [From Zithromax] AdvReac Intermediate Nausea Verified 02/26/16 09: 32 clavulanic acid AdvReac Intermediate Nausea Verified 02/26/16 09:32 [From Augmentin] dexlansoprazole AdvReac Mild Headache Verified 02/26/16 09:32 [From Dexilant] prednisone AdvReac Mild See Verified 02/26/16 09:32 Comments sertraline [From Zoloft] AdvReac Mild Depression Verified 02/26/16 09:32 Tetracycline AdvReac Mild Nausea Verified 02/26/16 09:32 Varenicline [From Chantix] AdvReac Mild Nightmare Verified 02/26/16 09:32 - Meds/Allergy Pre-op Review Medications Reviewed: Yes Allergies Reviewed: Yes Beta Blockers on Current Med List: Yes Anesthesia Results - Labs 01/01/17 18:18 01/01/17 18:18 - Imaging EKG: report reviewed, image reviewed Additional studies: TTE: Impressions: LVEF 50%. There are regional wall motion abnormalities, see diagram below. Mild left ventricular diastolic dysfunction. Normal right ventricular size and function. No significant valvular dysfunction. Unable to estimate RVSP due to lack of TR jet. 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 Motor: Normal RUE, Normal LUE, Normal RLE, Normal LLE, Normal Face - Cardiac Rhythm: Regular (rapid) - Pulmonary Breath Sounds: bilateral Clear (very decreased breath sounds bilaterally) Respiratory Effort: Labored Anesthesia Assess/Plan ASA Score: 3 Modified Jalil Scale for Level of Consciousness: Anixous, agitated or restless Anesthetic Plan: Precautions (no paralytic if need intubation and maintenance of spontaenous ventilation during intubation important; FOI/CMAC available; ketamine and local anesthetic topicalization are good options for sedation if requires urgent intubation; with current level of respiratory distress, awake FOI may be difficult to perform and too lengthy given current biPAP requirement and quick desaturation time) Monitoring Plan: Standard Monitors Recovery Plan: ICU
[2017-01-01] MEDS ORDERED: Ondansetron 4 MG/2 ML VIAL IVP PRN (21:25)
[2017-01-01] MEDS ORDERED: Acetaminophen 325 MG TABLET PO PRN (21:25)
[2017-01-01] MEDS ORDERED: Naloxone 0.4 MG/ML INJ IVP PRN (21:25)
[2017-01-01] MEDS ORDERED: Albuterol 2.5 MG/3 ML NEBULIZER IH PRN (21:25)
[2017-01-01] MEDS ORDERED: ALPRAZolam 0.25 MG TABLET PO PRN (21:35)
[2017-01-01] MEDS ORDERED: Lactulose Oral Soln 20 GM/30 ML UDC PO PRN (21:35)
[2017-01-01] MEDS ORDERED: *HR* HYDROcodone/Acet 5/325 mg TABLET PO PRN (21:35)
[2017-01-01] MEDS ORDERED: Simethicone 80 MG TAB.CHEW PO PRN (21:35)
[2017-01-01] MEDS ORDERED: Nitroglycerin 0.4 MG TAB.SUBL SL PRN (21:35)
--- NOTE | 2017-01-01 21:50 | Internal Med History&Physical ---
Date of Encounter: 01/01/17 Time of Encounter: 20:20 Assessment and Plan (1) Acute respiratory failure Current visit: Yes Status: Acute 1. Patient S/P racemic epinephrine, DUONEB aerosols x 3, IV steroids, and Ativan in ER. 2. Patient currently on BiPap and improved since presentation. 3. Admit to ICU for critical care support and monitoring. 4. If patient declines, she will need ETT and mechanical ventilation. Pat agrees and is full code. 5. Anesthesia consulted and available if necessary for assistance with intubation. 6. Consult Pulmonary for ongoing ICU management. 75 minutes critical care time spent with patient, discussing with ER staff and anesthesia, and coordinating care. 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 Given her history of tracheolaryngomalacia and repeated intubations, I consulted anesthesia to be available in the event we need to intubate. 2. If she needs intubation, she may tracheostomy thereafter to prevent further airway trauma in the event of COPD flare. 3. Pulmonary consulted for ongoing management and assistance. (3) Acute exacerbation of chronic obstructive pulmonary disease Current visit: No Status: Acute 1. Continue high dose steroids, aerosols, and antibiotics. 2. Admit to ICU for ongoing critical care and support. 3. Bipap for now and mechanical ventilation if necessary. (4) DVT prophylaxis Current visit: No Status: Acute 1. Heparin SQ. Internal Medicine - H&P: HPI Chief complaint: SOB; wheezing Admitted From: Emergency Dept Plans for Post Hospital Care: Transfer Nursing Home Facility History of present illness: Ms. Blackburn is a 71 year old female who presents the ER in respiratory extremis with profound wheezing, stridor, and impending respiratory failure. She was treated with racemic epinephrine, aerosols, and IV steroids. She was then placed on BiPAP and has somewhat stabilized. She was just discharged yesterday and she now presents in significant distress as noted above. ER staff called me to admit patient. It was reported to me that patient had history of tracheomalacia, vocal cord dysfunction, and some airway issues in the past. She is full code, and given the nature of her respiratory status and concern for critical airway, I requested the ER staff contact anesthesia to assess patient for the possibility of need for intubation and/or assistance during intubation. Anesthesia did see patient in consultation and is available should the need arise to intubate patient. I personally discussed with anesthesia as well and Dr. Moran is available if necessary. I saw and examined patient in the ER. She is having some significant wheezing, respiratory distress, and anxiety from her respiratory status. However, she has improved according the ER staff. She presently has no stridor. I discussed with her the CODE STATUS and she is full code. Should the need arise , she is agreeable to intubation and mechanical ventilation. She is a little anxious and has improved with some low-dose benzodiazepines. She denies any fevers or chills. She denies any chest pain. She was just discharged yesterday after a prolonged hospital stay for COPD exacerbation. She has considered palliative care and hospice care in the past, but she now wishes to be full code and wants to have everything done as necessary. Past Med Surg Social Fam HX - Past Medical History Attestation: Yes The following information was validated with the patient. Source: patient, old records reviewed, other (ER staff) Medical history: asthma, cancer, cardiomyopathy, CHF, COPD, coronary artery disease, GERD, hyperlipidemia, myocardial infarction, pulmonary embolus Psychiatric history: anxiety, depression - Past Surgical History Surgical History: angioplasty/stent, cancer surgery, cataract, cholecystectomy, sinus surgery - Social History Smoking Status: Former smoker Smokeless Tobacco Status: No Alcohol use: none Drug use: none - Family History Son Living Status: Still Living Hx Family GI Disorders: Yes Hx Family Neurologic Disorders: Yes (depression) Mother Living Status: Hx Family Cancer: Yes (Uterine) Sister Living Status: Still Living Hx Family Cardiac Disorders: Yes (Cerebrovascular accident) Hx Family Respiratory Disorders: No Hx Family Cancer: No Hx Family GI Disorders: No Hx Family Endocrine Disorder: No Hx Family Neuromuscular Disorders: No Hx Family Neurologic Disorders: No Hx Family HEENT Disorders: No Hx Family Autoimmune Disorders: No Daughter Living Status: Still Living Hx Family Cardiac Disorders: Yes (PE, MS) Hx Family Respiratory Disorders: Yes (COPD) Hx Family Cancer: No Hx Family GI Disorders: No Hx Family Endocrine Disorder: No Hx Family Neuromuscular Disorders: No Hx Family Neurologic Disorders: No Hx Family HEENT Disorders: No Hx Family Autoimmune Disorders: No Brother Family Member Ethnicity: Non- Living Status: Still Living Hx Family Cardiac Disorders: Yes (Coronary artery disease) Hx Family Respiratory Disorders: No Hx Family Cancer: No Hx Family GI Disorders: No Hx Family Endocrine Disorder: Yes (TYPE 2 DIABETES MELLITUS) Hx Family Neuromuscular Disorders: No Hx Family Neurologic Disorders: No Hx Family HEENT Disorders: No Hx Family Autoimmune Disorders: No Father Living Status: Hx Family Cardiac Disorders: Yes (Coronary artery disease) Hx Family Respiratory Disorders: No Hx Family Cancer: Yes (Bladder) Hx Family GI Disorders: No Hx Family Endocrine Disorder: No Hx Family Neuromuscular Disorders: No Hx Family Neurologic Disorders: No Hx Family HEENT Disorders: No Hx Family Autoimmune Disorders: No Internal Medicine - H&P: Meds Budesonide/Formoterol 160/4.5 [Symbicort] 2 puff IH BID 12/19/14 [History] Oxygen 2.5 l NS AD 05/17/15 [History] Nitroglycerin [Nitrostat] 0.4 mg SL Q5M PRN 11/22/15 [History] Acetaminophen [Tylenol] 1,000 mg PO Q6HR PRN 12/20/15 [History] ALPRAZolam [Xanax 0.25 MG Tablet] 0.25 mg PO TID PRN 01/04/16 [History] Albuterol Neb [Proventil Neb] 2.5 mg IH QID 01/04/16 [History] Tiotropium [Spiriva] 18 mcg IH 0800 01/04/16 [History] HYDROcodone/Acet 5/325 mg [[place] 5-325 mg] 1 tab PO TID PRN 02/26/16 [History] Ondansetron ODT [Zofran ODT] 4 mg SL Q8HR PRN 02/26/16 [History] Bisacodyl [Dulcolax] 10 mg RC DAILY PRN 05/03/16 [History] Fluticasone Propionate Nasal [Flonase] 1 spr NS HS 05/03/16 [History] Metoprolol [Lopressor] 12.5 mg PO BID 05/03/16 [History] Albuterol Sulfate [Proair Hfa] 2 puff IH Q4H PRN 11/17/16 [History] Aspirin [Lo-Dose Aspirin EC] 81 mg PO DAILY 11/17/16 [History] Diclofenac Sodium [Voltaren] 1 appl TP QID PRN 11/17/16 [History] Lactulose 20 gm PO DAILY PRN 11/17/16 [History] Mv,Fe,Min/Lutein [A Thru Z [employer]'s Tablet] 1 tab PO DAILY 11/17/16 [ History] Polyethylene Glycol 3350 [MiraLAX] 17 gm PO DAILY PRN 11/17/16 [History] Omeprazole [PriLOSEC] 20 mg PO BID #60 11/19/16 [Rx] ALPRAZolam [Xanax 0.5 MG Tablet] 0.5 mg PO HS 12/26/16 [History] Oxymetazoline HCl [Long Acting Nasal [place]] 1 spray NS TID PRN 12/26/16 [History ] Simethicone [Gas-X] 80 mg PO QID PRN 12/26/16 [History] Syringe W-Needle,Disposab,1 ml [Allergy Syringe] 1 each MC QWEEK 12/26/16 [ History] Calcium Carbonate [Tums] 1,000 mg PO Q4HR PRN #120 tab 12/31/16 [Rx] Saliva Stimulant [Biotene Moisturizing Rinse] 1 spray PO Q2H PRN #1 bottle 12/31 [Rx] levoFLOXacin [Levaquin] 750 mg PO DAILY #1 tablet 12/31/16 [Rx] 3 Allergy/AdvReac Type Severity Reaction Status Date / Time acetylcysteine Allergy Severe Anaphylaxis Verified 02/26/16 09:32 Iodinated Contrast- Oral and Allergy See Verified 02/26/16 09:32 IV Dye Comments [Iodinated Contrast Media - IV Dye] ramelteon [From Rozerem] Allergy Difficulty Verified 02/26/16 09:32 Breathing Amoxicillin [From Augmentin] AdvReac Intermediate Nausea Verified 02/26/16 09:32 azithromycin [From Zithromax] AdvReac Intermediate Nausea Verified 02/26/16 09: 32 clavulanic acid AdvReac Intermediate Nausea Verified 02/26/16 09:32 [From Augmentin] dexlansoprazole AdvReac Mild Headache Verified 02/26/16 09:32 [From Dexilant] prednisone AdvReac Mild See Verified 02/26/16 09:32 Comments sertraline [From Zoloft] AdvReac Mild Depression Verified 02/26/16 09:32 Tetracycline AdvReac Mild Nausea Verified 02/26/16 09:32 Varenicline [From Chantix] AdvReac Mild Nightmare Verified 02/26/16 09:32 - Constitutional Constitutional: no chills, no fever(s) - EENT Eyes: no blurry vision, no change in vision Ears: no ear pain, no tinnitus Nose, mouth and throat: no nasal congestion, no sinus pressure, no sore throat - Cardiovascular Cardiovascular ROS IM: dyspnea, dyspnea on exertion, palpitations, no chest pain , no lightheadedness, no syncope - Respiratory Respiratory: cough, dyspnea, dyspnea on exertion, wheezing, stridor, chest congestion, excessive phlegm production, no hemoptysis - Gastrointestinal Gastrointestinal: no abdominal pain, no diarrhea, no hematemesis, no hematochezia, no melena, no nausea, no vomiting - Genitourinary Genitourinary: no dysuria, no flank pain - Musculoskeletal Musculoskeletal ROS IM: back pain, no arthralgias - Integumentary Integumentary IM: no rash, no jaundice - Neurological Neurological ROS: no dizziness, no focal weakness, no frequent falls - Psychiatric Psychiatric: anxiety - Endocrine Endocrine IM: no polydipsia, no polyuria - Hematologic/Lymphatic Hematologic/Lymphatic: easy bruising, no lymphadenopathy - Allergic/Immunologic Allergic/Immunologic: wheezing, no GI upset with certain foods - Constitutional Vitals: Temp Pulse Resp BP Pulse Ox 97.8 F 138 22 107/76 93 01/01/17 17:54 01/01/17 20:54 01/01/17 20:54 01/01/17 20:54 01/01/17 20:54 General appearance: Present: cachectic, cooperative, A&O X 3, severe distress, answers questions appropriately Exam: patient in respiratory distress -- overall improved but still in distress - Head Head exam: Present: atraumatic, normal inspection - Expanded Head Exam Head exam expanded: Absent: abrasion, contusion, general tenderness - Eye Eye exam: Present: EOMI, PERRL. Absent: scleral icterus Pupils: Present: normal accommodation - ENT ENT exam: Present: mucous membranes dry, normal external ear exam - Neck Neck exam general surgery: Present: full ROM, supple, trachea midline. Absent: lymphadenopathy Additional comments: no audible stridor at this time - Expanded Neck Exam Neck exam: Absent: carotid bruit, tenderness, thyroid mass, tracheal deviation - Respiratory Respiratory exam: Present: accessory muscle use, prolonged expiratory phase, respiratory distress (moderate to severe), rhonchi, wheezes, tachypnea. Absent : chest wall tenderness, rales - Cardiovascular Cardiovascular exam: Present: distant heart sounds, +S1, +S2, tachycardia. Absent: diastolic murmur, JVD, systolic murmur - GI/Abdominal GI/Abdominal exam: Present: normal bowel sounds, soft. Absent: hepatomegaly, mass, splenomegaly, tenderness - Extremities Exam Extremities exam: Present: full ROM, warm. Absent: calf tenderness, joint swelling, pedal edema - Back Exam Back exam: Present: normal inspection. Absent: CVA tenderness (L), CVA tenderness (R) - Neurological Exam Neurological exam: Present: alert, CN II-XII intact, oriented X3, no focal deficits - Psychiatric Psychiatric exam: Present: anxious. Absent: depressed - Skin Skin exam: Present: dry, warm. Absent: rash Internal Med - H&P Results - Labs CBC & Chem 7: 01/01/17 18:18 01/01/17 18:18 - ABG Interpretation Interpretation: ABG interpreted by me Interpretation: respiratory acidosis Additional comments: 7.13/100/227/33 on BiPap with 55 % FIO2 - Diagnostic Studies Chest x-ray Status: image reviewed by me (negative)
[2017-01-01 21:51] LABS: Prothrombin Time 10.5 Seconds (9.4-12.1)
[2017-01-01 21:54] LABS: Activated Partial Thrombo Time 27.5 Seconds (26.0-36.0)
[2017-01-01] MEDS: *HR* Morphine 2 MG/ML SYRINGE IVP PRN (23:03)
[2017-01-01] MEDS: 0.9 % Sodium Chloride w KCl 20 MEQ/1,000 ML MLS IVC SCH (23:03)
[2017-01-01] MEDS: Ipratropium/Albuterol Neb 3 ML IH SCH (23:08)
[2017-01-02] MEDS: methylPREDNISolone 125 MG/2 ML VIAL IVP SCH ×3 (00:35→18:12)
[2017-01-02] MEDS: *HR* Heparin 5,000 UNIT/ML VIAL SQ SCH ×3 (00:36→18:12)
[2017-01-02] MEDS: Ipratropium/Albuterol Neb 3 ML IH SCH ×4 (03:55→15:52)
[2017-01-02] MEDS: *HR* Morphine 2 MG/ML SYRINGE IVP PRN (04:42)
[2017-01-02 04:43] LABS: ABG Base Excess 3.2 mEq/L (-2.0 to 3.0); ABG HCO3 31 mEq/L (21-27); ABG Oxygen Saturation 99 % (95-98); ABG PCO2 58 mmHg (35-45); ABG PH 7.33 pH Units (7.32-7.45); ABG PO2 172 mmHg (85-104); ABG TCO2 32.4 mEq/L (20-26); Blood Gas FiO2 40 %
[2017-01-02 04:44] LABS: Basophils % 0.2 %; Hematocrit 39.8 % (35.3-44.9); Hemoglobin 12.7 g/dL (11.5-15.4); Immature Granulocytes % 2.1 % (0-4); Immature Platelets 1.2 % (1.1-6.1); Lymphocytes # 0.3 K/mcL (0.6-4.6); Lymphocytes % 2.6 %; Mean Corpuscular HGB Conc 31.9 g/dL (31.6-35.5); Mean Corpuscular Volume 94.1 fL (83.0-100.0); Mean Platelet Volume 8.6 fL (9.4-12.4); Monocytes # 0.2 K/mcL (0.0-1.3); Monocytes % 1.8 %; Neutrophils # 11.3 K/mcL (1.6-8.9); Platelet Count 408 K/mcL (140-400); Red Blood Count 4.23 M/mcL (3.82-4.97); Red Cell Distribution Width 12.3 % (11.5-14.5); Segmented Neutrophils % 93.3 %
[2017-01-02 06:11] LABS: BUN/Creatinine Ratio 23 (6-26); Blood Urea Nitrogen 16 mg/dL (7-20); Calcium 8.8 mg/dL (8.6-10.8); Carbon Dioxide 28 mEq/L (19-29); Chloride 98 mEq/L (98-109); Glucose 152 mg/dL (70-99); Magnesium 1.8 mg/dL (1.6-2.6); Osmolality,Calculated 284 (280-300); Potassium 4.7 mEq/L (3.5-4.5); Sodium 135 mEq/L (136-145); eGFR For African Americans > 60 (> 60); eGFR For Non-African Americans > 60 (> 60)
[2017-01-02] MEDS: 0.9 % Sodium Chloride 1,000 ML IVC SCH ×2 (07:50→14:34)
[2017-01-02] MEDS ORDERED: Tiotropium 18 MCG inhalation IH SCH (08:00)
[2017-01-02] MEDS: 0.9 % Sodium Chloride w KCl 20 MEQ/1,000 ML MLS IVC SCH (08:47)
[2017-01-02] MEDS ORDERED: Aspirin Enteric Coated 81 MG Tablet PO SCH (09:00)
[2017-01-02] MEDS ORDERED: Pantoprazole 40 MG VIAL IVPB SCH (09:00)
[2017-01-02] MEDS ORDERED: Budesonide/Formoterol 160/4.5 MDI IH SCH (10:00)
--- NOTE | 2017-01-02 11:07 | Pulmonology Consult Note ---
<Valentine Cross - Last Filed: 01/02/17 13:11> Date of Encounter: 01/02/17 Time of Encounter: 09:30 Assessment and Plan (1) Acute exacerbation of chronic obstructive pulmonary disease Current Visit: No Status: Acute -patient is no longer in respiratory distress -O2 is 95%, purse lip breathing but is normal for patient -Continue levofloxacin, solumedrol, proventil -continue patient home inhalers -Patient is on 2L oxygen -Bipap as needed -mechanical ventilation if necessary- anesthesia has been consulted - continue to closely monitor patient (2) Abdominal pain Current Visit: No Status: Acute -history of GERD and IBS -complains of abdominal bloating and pain -most likely IBS and GERD -abdominal exam: minimal tenderness, no guarding, rebound tenderness, non peritoneal -consulted Dr. 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 She came from the assisted living facility. She was then placed on Bipap which improved her oxygenation and breathing. She was treated with epinephrine, IV streroids, and nebulizers. Anesthesia was consulted due to tracheolaryngomalacia and the possibility for intubation. She was just discharged from here on 12/31/16 for COPD exacerbation. She has a history of COPD, tracheolaryngomalacia, CHR, CAD, GERD, DE, PE. She returned due to shortness of breath and difficulty breathing similar to when she was admitted last time. She is currently stable in the ICU on 2L oxygen. She stated she still has shortness of breathe and believes that her abdominal discomfort and bloating makes it worse. She has a history of IBS with past EGD and colonscopy that showed only gastritis. She admits shortness of breath and admoninal pain. She denies chest pain, cough, palpitations, nausea, vomiting, melena, hematochezia. Past Med Surg Social Fam HX - Past Medical History Medical history: asthma, cancer, cardiomyopathy, CHF, COPD, coronary artery disease, GERD, hyperlipidemia, myocardial infarction, pulmonary embolus, other Psychiatric history: anxiety, depression - Past Surgical History Surgical History: angioplasty/stent, cancer surgery, cataract, cholecystectomy, sinus surgery - Social History Smoking Status: Former smoker Smokeless Tobacco Status: No Alcohol use: none Drug use: none - Family History Son Living Status: Still Living Hx Family GI Disorders: Yes Hx Family Neurologic Disorders: Yes (depression) Mother Living Status: Hx Family Cancer: Yes (Uterine) Sister Living Status: Still Living Hx Family Cardiac Disorders: Yes (Cerebrovascular accident) Hx Family Respiratory Disorders: No Hx Family Cancer: No Hx Family GI Disorders: No Hx Family Endocrine Disorder: No Hx Family Neuromuscular Disorders: No Hx Family Neurologic Disorders: No Hx Family HEENT Disorders: No Hx Family Autoimmune Disorders: No Daughter Living Status: Still Living Hx Family Cardiac Disorders: Yes (PE, DE) Hx Family Respiratory Disorders: Yes (COPD) Hx Family Cancer: No Hx Family GI Disorders: No Hx Family Endocrine Disorder: No Hx Family Neuromuscular Disorders: No Hx Family Neurologic Disorders: No Hx Family HEENT Disorders: No Hx Family Autoimmune Disorders: No Brother Family Member Ethnicity: Non- Living Status: Still Living Hx Family Cardiac Disorders: Yes (Coronary artery disease) Hx Family Respiratory Disorders: No Hx Family Cancer: No Hx Family GI Disorders: No Hx Family Endocrine Disorder: Yes (TYPE 2 DIABETES MELLITUS) Hx Family Neuromuscular Disorders: No Hx Family Neurologic Disorders: No Hx Family HEENT Disorders: No Hx Family Autoimmune Disorders: No Father Living Status: Hx Family Cardiac Disorders: Yes (Coronary artery disease) Hx Family Respiratory Disorders: No Hx Family Cancer: Yes (Bladder) Hx Family GI Disorders: No Hx Family Endocrine Disorder: No Hx Family Neuromuscular Disorders: No Hx Family Neurologic Disorders: No Hx Family HEENT Disorders: No Hx Family Autoimmune Disorders: No Medications and Allergies Budesonide/Formoterol 160/4.5 [Symbicort] 2 puff IH BID 12/19/14 [History] Oxygen 2.5 l NS AD 05/17/15 [History] Nitroglycerin [Nitrostat] 0.4 mg SL Q5M PRN 11/22/15 [History] Acetaminophen [Tylenol] 1,000 mg PO Q6HR PRN 12/20/15 [History] ALPRAZolam [Xanax 0.25 MG Tablet] 0.25 mg PO TID PRN 01/04/16 [History] Albuterol Neb [Proventil Neb] 2.5 mg IH QID 01/04/16 [History] Tiotropium [Spiriva] 18 mcg IH 0800 01/04/16 [History] HYDROcodone/Acet 5/325 mg [[place] 5-325 mg] 1 tab PO TID PRN 02/26/16 [History] Ondansetron ODT [Zofran ODT] 4 mg SL Q8HR PRN 02/26/16 [History] Bisacodyl [Dulcolax] 10 mg RC DAILY PRN 05/03/16 [History] Fluticasone Propionate Nasal [Flonase] 1 spr NS HS 05/03/16 [History] Metoprolol [Lopressor] 12.5 mg PO BID 05/03/16 [History] Albuterol Sulfate [Proair Hfa] 2 puff IH Q4H PRN 11/17/16 [History] Aspirin [Lo-Dose Aspirin EC] 81 mg PO DAILY 11/17/16 [History] Diclofenac Sodium [Voltaren] 1 appl TP QID PRN 11/17/16 [History] Lactulose 20 gm PO DAILY PRN 11/17/16 [History] Mv,Fe,Min/Lutein [A Thru Z [employer] Tablet] 1 tab PO DAILY 11/17/16 [ History] Polyethylene Glycol 3350 [MiraLAX] 17 gm PO DAILY PRN 11/17/16 [History] Omeprazole [PriLOSEC] 20 mg PO BID #60 11/19/16 [Rx] ALPRAZolam [Xanax 0.5 MG Tablet] 0.5 mg PO HS 12/26/16 [History] Oxymetazoline HCl [Long Acting Nasal [place]] 1 spray NS TID PRN 12/26/16 [History ] Simethicone [Gas-X] 80 mg PO QID PRN 12/26/16 [History] Syringe W-Needle,Disposab,1 ml [Allergy Syringe] 1 each QWEEK 12/26/16 [ History] Calcium Carbonate [Tums] 1,000 mg PO Q4HR PRN #120 tab 12/31/16 [Rx] Saliva Stimulant [Biotene Moisturizing Rinse] 1 spray PO Q2H PRN #1 bottle 12/31 [Rx] levoFLOXacin [Levaquin] 750 mg PO DAILY #1 tablet 12/31/16 [Rx] 3 Allergy/AdvReac Type Severity Reaction Status Date / Time acetylcysteine Allergy Severe Anaphylaxis Verified 02/26/16 09:32 Iodinated Contrast- Oral and Allergy See Verified 02/26/16 09:32 IV Dye Comments [Iodinated Contrast Media - IV Dye] ramelteon [From Rozerem] Allergy Difficulty Verified 02/26/16 09:32 Breathing Amoxicillin [From Augmentin] AdvReac Intermediate Nausea Verified 02/26/16 09:32 azithromycin [From Zithromax] AdvReac Intermediate Nausea Verified 02/26/16 09: 32 clavulanic acid AdvReac Intermediate Nausea Verified 02/26/16 09:32 [From Augmentin] dexlansoprazole AdvReac Mild Headache Verified 02/26/16 09:32 [From Dexilant] prednisone AdvReac Mild See Verified 02/26/16 09:32 Comments sertraline [From Zoloft] AdvReac Mild Depression Verified 02/26/16 09:32 Tetracycline AdvReac Mild Nausea Verified 02/26/16 09:32 Varenicline [From Chantix] AdvReac Mild Nightmare Verified 02/26/16 09:32 All Systems: A 10-system review of systems was performed and is negative for pertinent findings except as documented above in the HPI. - Constitutional Constitutional: no chills, no fever(s) - EENT Nose, mouth and throat: dry mouth, no throat swelling - Cardiovascular Cardiovascular: no chest pain, no diaphoresis, no edema, no lightheadedness, no palpitations - Respiratory Respiratory: dyspnea, wheezing, no cough, no hemoptysis - Gastrointestinal Gastrointestinal: abdominal pain, no diarrhea, no hematemesis, no hematochezia, no melena, no nausea, no vomiting - Genitourinary Genitourinary: no difficulty urinating, no dysuria - Musculoskeletal Musculoskeletal: joint pain (shoulders b/l), no joint swelling Physical Examination Vital Signs: Vital Signs, Last 4 Hours Temp Pulse Resp BP Pulse Ox 01/02/17 10:00 105 18 125/88 100 01/02/17 09:00 125 24 146/94 95 01/02/17 08:20 109 01/02/17 08:00 122 20 145/97 95 01/02/17 07:52 98.2 F 01/02/17 07:29 14 94/82 100 General appearance: no acute distress Eyes: nonicteric ENT: oropharynx dry Neck: supple Effort: mildly labored Inspection: normal Auscultation: bilateral: diminished breath sounds, wheezes (none), rhonchi (none ) Cardiovascular: regular rate and rhythm Gastrointestinal: normoactive bowel sounds, soft, tender Extremities: no cyanosis, no edema, no clubbing normal mental status mood appropriate Results - Laboratory Findings CBC and BMP: 01/02/17 03:14 01/02/17 03:14 ABG ABG pH 7.33 pH Units (7.32-7.45) 01/02/17 04:30 ABG pCO2 58 mmHg (35-45) H 01/02/17 04:30 ABG pO2 172 mmHg (85-104) H 01/02/17 04:30 ABG O2 Saturation 99 % (95-98) H 01/02/17 04:30 PT/INR, D-dimer PT 10.5 Seconds (9.4-12.1) 01/01/17 18:18 Abnormal lab findings: Abnormal lab results WBC 12.1 K/mcL (4.3-11.1) H 01/02/17 03:14 Plt Count 408 K/mcL (140-400) H 01/02/17 03:14 MPV 8.6 fL (9.4-12.4) L 01/02/17 03:14 Neutrophils # 11.3 K/mcL (1.6-8.9) H 01/02/17 03:14 Lymphocytes # 0.3 K/mcL (0.6-4.6) L 01/02/17 03:14 ABG pCO2 58 mmHg (35-45) H 01/02/17 04:30 ABG pO2 172 mmHg (85-104) H 01/02/17 04:30 ABG HCO3 31 mEq/L (21-27) H 01/02/17 04:30 ABG Total CO2 32.4 mEq/L (20-26) H 01/02/17 04:30 ABG O2 Saturation 99 % (95-98) H 01/02/17 04:30 ABG Base Excess 3.2 mEq/L (-2.0 to 3.0) H 01/02/17 04:30 Sodium 135 mEq/L (136-145) L 01/02/17 03:14 Potassium 4.7 mEq/L (3.5-4.5) H 01/02/17 03:14 Glucose 152 mg/dL (70-99) H 01/02/17 03:14 POC Glucose 146 (58-89) H 01/02/17 05:56 - Clinical Findings Intake & Output: Intake & Output 01/01/17 01/02/17 01/02/17 23:59 07:59 15:59 Intake Total 1000 / 1000 1745 / 1745 1360 / 1360 Output Total 0 / 0 550 / 550 500 / 500 Balance 1000 / 1000 1195 / 1195 860 / 860 Consult Discharge Plan - Plan Referrals: Paula Casiano CNP [Primary Care Provider] - <Randal Fair - Last Filed: 01/02/17 16:17> Date of Encounter: 01/02/17 All Systems: A 10-system review of systems was performed and is negative for pertinent findings except as documented above in the HPI. Physical Examination Vital Signs: Vital Signs, Last 4 Hours Temp Pulse Resp BP Pulse Ox 01/02/17 16:00 98.3 F 01/02/17 14:00 113 20 111/68 99 01/02/17 13:00 99 22 118/77 99 Results - Laboratory Findings CBC and BMP: 01/02/17 03:14 01/02/17 03:14 ABG ABG pH 7.33 pH Units (7.32-7.45) 01/02/17 04:30 ABG pCO2 58 mmHg (35-45) H 01/02/17 04:30 ABG pO2 172 mmHg (85-104) H 01/02/17 04:30 ABG O2 Saturation 99 % (95-98) H 01/02/17 04:30 PT/INR, D-dimer PT 10.5 Seconds (9.4-12.1) 01/01/17 18:18 Abnormal lab findings: Abnormal lab results WBC 12.1 K/mcL (4.3-11.1) H 01/02/17 03:14 Plt Count 408 K/mcL (140-400) H 01/02/17 03:14 MPV 8.6 fL (9.4-12.4) L 01/02/17 03:14 Neutrophils # 11.3 K/mcL (1.6-8.9) H 01/02/17 03:14 Lymphocytes # 0.3 K/mcL (0.6-4.6) L 01/02/17 03:14 ABG pCO2 58 mmHg (35-45) H 01/02/17 04:30 ABG pO2 172 mmHg (85-104) H 01/02/17 04:30 ABG HCO3 31 mEq/L (21-27) H 01/02/17 04:30 ABG Total CO2 32.4 mEq/L (20-26) H 01/02/17 04:30 ABG O2 Saturation 99 % (95-98) H 01/02/17 04:30 ABG Base Excess 3.2 mEq/L (-2.0 to 3.0) H 01/02/17 04:30 Sodium 135 mEq/L (136-145) L 01/02/17 03:14 Potassium 4.7 mEq/L (3.5-4.5) H 01/02/17 03:14 Glucose 152 mg/dL (70-99) H 01/02/17 03:14 POC Glucose 146 (58-89) H 01/02/17 05:56 - Clinical Findings Intake & Output: Intake & Output 01/02/17 01/02/17 01/02/17 07:59 15:59 23:59 Intake Total 1745 / 1745 1360 / 1360 Output Total 550 / 550 900 / 900 Balance 1195 / 1195 460 / 460 - Attending Attestation I examined this patient and my medical decision-making was reviewed with the Resident Physician. I agree with the documented findings, disposition and treatment plan as described except to the extent set forth below. Patient seen and examined. Labs, radiology, chart personally reviewed. Agree with resident's history and physical, assessment, plan with following comments: CONTRACT PROJECT MANAGER: Patient follows commands, Pulmonary: Acceptable oxygenation and ventilation. Patient is doing reasonably well on BiPAP and then changed to nasal cannula. Continue bronchodilators. Patient hemodynamically stable to be transferred to the floor. Cardiovascular: stable GI: Nutrition per dietary and GI prophylaxis per routine. Patient complaining of abdominal pain and GI has seen the patient to consult GI to see patient again. Heme: DVT prophylaxis per routine ID: Continue antibiotics and plan to de-escalation Renal; urine out put and renal funtion reviewed Endorcine: blood glucose is monitored Lines: all lines checked and no evidence of infections Skin: skin care to prevent pressure ulcers per nursing routine care Discussed with primary team and thank you for consultation.
[2017-01-02] MEDS ORDERED: GI Cocktail 40 ML EACH PO ONE (11:17)
[2017-01-02] MEDS ORDERED: Simethicone 80 MG TAB.CHEW PO PRN (16:16)
[2017-01-02] MEDS ORDERED: Naloxone 0.4 MG/ML INJ IVP PRN (16:16)
[2017-01-02] MEDS ORDERED: Acetaminophen 325 MG TABLET PO PRN (16:16)
[2017-01-02] MEDS ORDERED: Lactulose Oral Soln 20 GM/30 ML UDC PO PRN (16:16)
[2017-01-02] MEDS ORDERED: Nitroglycerin 0.4 MG TAB.SUBL SL PRN (16:16)
[2017-01-02] MEDS ORDERED: Ondansetron 4 MG/2 ML VIAL IVP PRN (16:16)
[2017-01-02] MEDS ORDERED: *HR* HYDROcodone/Acet 5/325 mg TABLET PO PRN (16:16)
[2017-01-02] MEDS: Levofloxacin 750 MG/150 ML 750 MG/150 ML BAG IVPB SCH (18:12)
[2017-01-02] MEDS ORDERED: Levofloxacin 750 MG/150 ML 750 MG/150 ML BAG IVPB SCH (19:00)
[2017-01-02] MEDS ORDERED: Ipratropium/Albuterol Neb 3 ML IH SCH (20:00)
[2017-01-02] MEDS: Fluticasone Propionate Nasal 50 MCG/SPRAY BOTTLE NS SCH (20:28)
[2017-01-02] MEDS: Budesonide/Formoterol 160/4.5 MDI IH SCH (20:58)
[2017-01-02] MEDS ORDERED: Fluticasone Propionate Nasal 50 MCG/SPRAY BOTTLE NS SCH (21:00)
[2017-01-02] MEDS: ALPRAZolam 0.5 MG TABLET PO SCH (21:47)
[2017-01-03] MEDS ORDERED: methylPREDNISolone 125 MG/2 ML VIAL IVP SCH
[2017-01-03] MEDS ORDERED: *HR* Heparin 5,000 UNIT/ML VIAL SQ SCH
[2017-01-03] MEDS: methylPREDNISolone 125 MG/2 ML VIAL IVP SCH ×3 (01:39→21:39)
[2017-01-03] MEDS: *HR* Heparin 5,000 UNIT/ML VIAL SQ SCH ×3 (01:40→17:47)
[2017-01-03] MEDS: ALPRAZolam 0.25 MG TABLET PO PRN ×2 (01:56→15:36)
[2017-01-03] MEDS: Budesonide/Formoterol 160/4.5 MDI IH SCH ×2 (07:38→19:42)
[2017-01-03] MEDS: Pantoprazole 40 MG VIAL IVPB SCH (09:49)
[2017-01-03] MEDS: Aspirin Enteric Coated 81 MG Tablet PO SCH (09:49)
[2017-01-03] MEDS: Tiotropium 18 MCG inhalation IH SCH (11:01)
--- NOTE | 2017-01-03 12:09 | Internal Med Progress Note ---
Date of Encounter: 01/03/17 Time of Encounter: 12:06 - Assessment and plan (1) Acute and chronic respiratory failure with hypercapnia Current Visit: Yes Status: Acute Assessment and plan: Secondary to acute COPD exacerbation decreased systemic steroids patient reports of feeling better since her hospitalization continue steroids, bronchodilator support, abx, and O2 supplementation she states she is unable to take oral prednisone due to her tracheomalacia bipap as needed abg as needed will closely monitor respiratory status Pt reports of underlying anxiety, will continue home dose of xanax. (2) Acute exacerbation of chronic obstructive pulmonary disease Current Visit: No Status: Acute Assessment and plan: plan as listed above (3) DVT prophylaxis Current Visit: No Status: Acute Assessment and plan: Heparin SQ (4) Constipation Current Visit: No Status: Chronic Assessment and plan: continue stool softeners pt reports of having history of IBS Qualifiers: Constipation type: unspecified constipation type Qualified Code(s): K59.00 - Constipation, unspecified (5) Tracheobronchomalacia Current Visit: No Status: Chronic - Subjective Interval history: Patient is a 71y/o female who was initially admitted to the ICU for acute respiratory failure secondary to COPD exacerbation. She was transferred to the medical floor overnight. patient seen and examined at bedside. Sitting in chair, saturating well on nasal cannula. She is noted to breath with pursed lips and she states she has been doing this for years because of her severe COPD. Reports of nasal congestion and is requesting Afrin. Denies any abd pain at this time. - Constitutional Vitals: Temp Pulse Resp BP Pulse Ox 98.6 F 100 22 109/65 100 01/03/17 07:45 01/03/17 07:45 01/03/17 11:02 01/03/17 07:45 01/03/17 11:02 General appearance: Present: cooperative, A&O X 3, no acute distress, answers questions appropriately - Head Head exam: Present: atraumatic, normocephalic - Eye Eye exam: Present: conjuntiva pink, sclera anicteric - Respiratory Respiratory exam: Absent: respiratory distress, wheezes (decreased breath sounds bilaterally but equal air entry bilaterally) - Cardiovascular Cardiovascular exam: Present: RRR, +S1, +S2. Absent: diastolic murmur, gallop, rubs, systolic murmur - GI/Abdominal GI/Abdominal exam: Present: normal bowel sounds, soft, no peritoneal signs. Absent: distended, tenderness - Extremities Exam Extremities exam: Present: warm, radial pulses palpable and symmetrical. Absent : calf tenderness, pedal edema - Neurological Exam Neurological exam: Present: alert, oriented X3 - Psychiatric Psychiatric exam: Present: normal affect, normal mood Internal Medicine: Result - Labs CBC & Chem 7: 01/02/17 03:14 01/02/17 03:14 - ABG Interpretation ABG results: ABG ABG pH 7.33 pH Units (7.32-7.45) 01/02/17 04:30 ABG pCO2 58 mmHg (35-45) H 01/02/17 04:30 ABG pO2 172 mmHg (85-104) H 01/02/17 04:30 ABG O2 Saturation 99 % (95-98) H 01/02/17 04:30 PT/INR, D-dimer PT 10.5 Seconds (9.4-12.1) 01/01/17 18:18 Consult Discharge Plan - Plan Referrals: Paula Casiano SNOWMOBILE MECHANIC [Primary Care Provider] -
[2017-01-03] MEDS: Oxymetazoline Nasal SPRAY BOTTLE NS PRN (15:32)
[2017-01-03] MEDS: Levofloxacin 750 MG/150 ML 750 MG/150 ML BAG IVPB SCH (17:47)
[2017-01-03] MEDS: ALPRAZolam 0.5 MG TABLET PO SCH (21:40)
[2017-01-03] MEDS: Fluticasone Propionate Nasal 50 MCG/SPRAY BOTTLE NS SCH (21:41)
[2017-01-04] MEDS: *HR* Heparin 5,000 UNIT/ML VIAL SQ SCH ×3 (02:08→17:09)
[2017-01-04] MEDS: ALPRAZolam 0.25 MG TABLET PO PRN (04:00)
[2017-01-04] MEDS: Oxymetazoline Nasal SPRAY BOTTLE NS PRN ×2 (04:04→19:34)
[2017-01-04 04:07] LABS: Basophils % 0.2 %; Hematocrit 39.2 % (35.3-44.9); Hemoglobin 12.9 g/dL (11.5-15.4); Immature Granulocytes % 0.7 % (0-4); Lymphocytes # 0.5 K/mcL (0.6-4.6); Mean Corpuscular HGB Conc 32.9 g/dL (31.6-35.5); Mean Corpuscular Volume 91.2 fL (83.0-100.0); Mean Platelet Volume 8.3 fL (9.4-12.4); Monocytes % 5.7 %; Neutrophils # 15.9 K/mcL (1.6-8.9); Platelet Count 362 K/mcL (140-400); Red Cell Distribution Width 12.5 % (11.5-14.5); Segmented Neutrophils % 90.4 %
[2017-01-04 04:19] LABS: BUN/Creatinine Ratio 23 (6-26); Blood Urea Nitrogen 15 mg/dL (7-20); Carbon Dioxide 29 mEq/L (19-29); Chloride 99 mEq/L (98-109); Glucose 151 mg/dL (70-99); Magnesium 2.3 mg/dL (1.6-2.6); Osmolality,Calculated 286 (280-300); Phosphorous 2.8 mg/dL (2.3-4.7); Sodium 136 mEq/L (136-145); eGFR For African Americans > 60 (> 60); eGFR For Non-African Americans > 60 (> 60)
[2017-01-04 04:20] LABS: Potassium 4.8 mEq/L (3.5-4.5)
[2017-01-04 05:56] LABS: ABG Base Excess 11.2 mEq/L (-2.0 to 3.0); ABG HCO3 39 mEq/L (21-27); ABG Oxygen Saturation 89 % (95-98); ABG PCO2 68 mmHg (35-45); ABG PH 7.37 pH Units (7.32-7.45); ABG PO2 59 mmHg (85-104); ABG TCO2 41.4 mEq/L (20-26)
[2017-01-04 05:59] LABS: Blood Gas FiO2 28 %; Blood Gas Liter Flow 2 L/MIN
[2017-01-04] MEDS: Tiotropium 18 MCG inhalation IH SCH (08:15)
[2017-01-04] MEDS: Budesonide/Formoterol 160/4.5 MDI IH SCH ×2 (08:15→19:06)
[2017-01-04] MEDS: Simethicone 80 MG TAB.CHEW PO SCH ×3 (08:40→17:09)
[2017-01-04] MEDS: Aspirin Enteric Coated 81 MG Tablet PO SCH (08:40)
[2017-01-04] MEDS: methylPREDNISolone 125 MG/2 ML VIAL IVP SCH (08:41)
[2017-01-04] MEDS: Pantoprazole 40 MG VIAL IVPB SCH (08:41)
--- NOTE | 2017-01-04 13:25 | Internal Med Progress Note ---
Date of Encounter: 01/04/17 Time of Encounter: 13:23 - Assessment and plan (1) Acute and chronic respiratory failure with hypercapnia Current Visit: Yes Status: Acute Assessment and plan: Secondary to acute COPD exacerbation decreased systemic steroids patient reports of feeling better since her hospitalization continue steroids, bronchodilator support, abx, and O2 supplementation she states she is unable to take oral prednisone due to her tracheomalacia bipap as needed abg as needed will closely monitor respiratory status Pt reports of underlying anxiety, will continue home dose of xanax. Leukocytosis likely secondary to steroid use. (2) Acute exacerbation of chronic obstructive pulmonary disease Current Visit: No Status: Acute Assessment and plan: plan as listed above Code(s): J44.1 - Chronic obstructive pulmonary disease with (acute) exacerbation (3) DVT prophylaxis Current Visit: No Status: Acute Assessment and plan: Heparin SQ (4) Constipation Current Visit: No Status: Chronic Assessment and plan: continue stool softeners d/c colace and start Senna plus 2tabs PO BID Miralax prn constipation pt reports of having history of IBS Qualifiers: Constipation type: unspecified constipation type Qualified Code(s): K59.00 - Constipation, unspecified (5) Tracheobronchomalacia Current Visit: No Status: Chronic - Subjective Interval history: Patient is a 71y/o female who was initially admitted to the ICU for acute respiratory failure secondary to COPD exacerbation. She was transferred to the medical floor once stabilized. Pt seen and examined at bedside. Resting in chair and reports of feeling same from previous day. Reports of constipation despite being on colace. Denies any abd pain at this time. - Constitutional Vitals: Temp Pulse Resp BP Pulse Ox 99.1 F 100 20 134/78 96 01/04/17 12:16 01/04/17 12:16 01/04/17 12:16 01/04/17 12:16 01/04/17 12:16 General appearance: Present: cooperative, A&O X 3, no acute distress, answers questions appropriately - Head Head exam: Present: atraumatic, normocephalic - Eye Eye exam: Present: conjuntiva pink, sclera anicteric - Respiratory Respiratory exam: Absent: accessory muscle use (equal air entry bilaterally, breathing with pursed lips ), chest wall tenderness, respiratory distress, wheezes - Cardiovascular Cardiovascular exam: Present: RRR, +S1, +S2. Absent: diastolic murmur, gallop, rubs, systolic murmur - GI/Abdominal GI/Abdominal exam: Present: normal bowel sounds, soft, no peritoneal signs. Absent: distended, tenderness - Extremities Exam Extremities exam: Present: warm, radial pulses palpable and symmetrical. Absent : calf tenderness - Neurological Exam Neurological exam: Present: alert, oriented X3 - Psychiatric Psychiatric exam: Present: normal affect, normal mood Internal Medicine: Result - Labs CBC & Chem 7: 01/04/17 03:58 01/04/17 03:58 Labs: Short CBC 01/04/17 Range/Units 03:58 WBC 17.5 H (4.3-11.1) K/mcL Hgb 12.9 (11.5-15.4) g/dL Hct 39.2 (35.3-44.9) % Plt Count 362 (140-400) K/mcL Neutrophils # 15.9 H (1.6-8.9) K/mcL BMP 01/04/17 03:58 Sodium 136 Potassium 4.8 H Chloride 99 Carbon Dioxide 29 BUN 15 Creatinine 0.64 Glucose 151 H Calcium 9.0 - ABG Interpretation ABG results: ABG ABG pH 7.37 pH Units (7.32-7.45) 01/04/17 05:40 ABG pCO2 68 mmHg (35-45) H 01/04/17 05:40 ABG pO2 59 mmHg (85-104) L 01/04/17 05:40 ABG O2 Saturation 89 % (95-98) L 01/04/17 05:40 PT/INR, D-dimer PT 10.5 Seconds (9.4-12.1) 01/01/17 18:18 - Impressions Impressions Chest X-Ray 01/04/17 08:18 IMPRESSION: No acute process. D/ / Toi Medeiros MD / Toi Medeiros MD Interpreting Provider: Toi Medeiros MD Consult Discharge Plan - Plan Referrals: Paula Casiano, ALONZO [Primary Care Provider] -
[2017-01-04] MEDS: MethylPREDNISolone 40 MG/ML VIAL IVP SCH ×2 (14:17→18:41)
[2017-01-04] MEDS: Sennosides/Docusate Sodium TABLET PO SCH ×2 (14:36→21:30)
[2017-01-04] MEDS: Albuterol 2.5 MG/3 ML NEBULIZER IH PRN ×2 (15:17→18:18)
[2017-01-04] MEDS: Levofloxacin 750 MG/150 ML 750 MG/150 ML BAG IVPB SCH (18:19)
[2017-01-04] MEDS ORDERED: methylPREDNISolone 125 MG/2 ML VIAL IVP STA (18:37)
[2017-01-04] MEDS: ALPRAZolam 0.5 MG TABLET PO SCH (21:28)
[2017-01-04] MEDS: Fluticasone Propionate Nasal 50 MCG/SPRAY BOTTLE NS SCH (21:29)
[2017-01-05] MEDS: *HR* Heparin 5,000 UNIT/ML VIAL SQ SCH ×3 (03:09→16:56)
[2017-01-05] MEDS: ALPRAZolam 0.25 MG TABLET PO PRN (03:37)
[2017-01-05 04:33] LABS: Basophils # 0.1 K/mcL (0.0-0.2); Basophils % 0.4 %; Hematocrit 39.8 % (35.3-44.9); Hemoglobin 12.8 g/dL (11.5-15.4); Immature Granulocytes % 2.3 % (0-4); Lymphocytes # 0.6 K/mcL (0.6-4.6); Lymphocytes % 4.6 %; Mean Corpuscular HGB Conc 32.2 g/dL (31.6-35.5); Mean Corpuscular Hemoglobin 29.4 pg (28.0-33.3); Mean Corpuscular Volume 91.5 fL (83.0-100.0); Mean Platelet Volume 8.5 fL (9.4-12.4); Monocytes # 0.9 K/mcL (0.0-1.3); Monocytes % 7.3 %; Platelet Count 358 K/mcL (140-400); Red Blood Count 4.35 M/mcL (3.82-4.97); Red Cell Distribution Width 12.5 % (11.5-14.5); Segmented Neutrophils % 85.4 %
[2017-01-05 04:35] LABS: ABG Base Excess 15.3 mEq/L (-2.0 to 3.0); ABG HCO3 43 mEq/L (21-27); ABG Oxygen Saturation 97 % (95-98); ABG PCO2 66 mmHg (35-45); ABG PH 7.42 pH Units (7.32-7.45); ABG PO2 91 mmHg (85-104); ABG TCO2 44.8 mEq/L (20-26)
[2017-01-05 04:41] LABS: Blood Gas FiO2 28 %; Blood Gas Liter Flow 2 L/MIN
[2017-01-05 04:51] LABS: BUN/Creatinine Ratio 26 (6-26); Blood Urea Nitrogen 17 mg/dL (7-20); Calcium 8.8 mg/dL (8.6-10.8); Carbon Dioxide 33 mEq/L (19-29); Chloride 97 mEq/L (98-109); Glucose 149 mg/dL (70-99); Magnesium 2.1 mg/dL (1.6-2.6); Osmolality,Calculated 284 (280-300); Phosphorous 3.1 mg/dL (2.3-4.7); Potassium 4.5 mEq/L (3.5-4.5); Sodium 135 mEq/L (136-145); eGFR For African Americans > 60 (> 60); eGFR For Non-African Americans > 60 (> 60)
[2017-01-05] MEDS: *HR* LORazepam 2 MG/ML VIAL IVP PRN ×2 (05:48→11:37)
[2017-01-05] MEDS: Simethicone 80 MG TAB.CHEW PO SCH ×3 (07:22→16:56)
[2017-01-05] MEDS: Budesonide/Formoterol 160/4.5 MDI IH SCH ×2 (07:46→20:07)
[2017-01-05] MEDS: Tiotropium 18 MCG inhalation IH SCH (07:47)
[2017-01-05] MEDS: Sennosides/Docusate Sodium TABLET PO SCH ×2 (08:45→21:21)
[2017-01-05] MEDS: Aspirin Enteric Coated 81 MG Tablet PO SCH (08:45)
[2017-01-05] MEDS: Pantoprazole 40 MG VIAL IVPB SCH (08:46)
[2017-01-05] MEDS: Oxymetazoline Nasal SPRAY BOTTLE NS PRN (11:40)
[2017-01-05] MEDS: MethylPREDNISolone 40 MG/ML VIAL IVP SCH (13:52)
[2017-01-05] MEDS ORDERED: ALPRAZolam 0.25 MG TABLET PO PRN ×2 (16:29→16:45)
--- NOTE | 2017-01-05 16:39 | Internal Med Progress Note ---
<[place] - Last Filed: 01/05/17 16:32> Date of Encounter: 01/05/17 Time of Encounter: 16:32 - Assessment and plan (1) Acute and chronic respiratory failure with hypercapnia Current Visit: Yes Status: Acute Assessment and plan: Secondary acute COPD exacerbation. Patient is now on her home oxygen dose and maintain her saturation. Continue oxygen supplementation. (2) Acute exacerbation of chronic obstructive pulmonary disease Current Visit: No Status: Acute Assessment and plan: Gradually improving. Continue IV steroids as the patient states that she is unable to take by mouth prednisone. Continue bronchodilator inhalers as the patient states that she cannot use nebulizers. Continue antibiotics. (3) Vocal cord dysfunction Current Visit: No Status: Chronic Assessment and plan: Patient reports that her vocal cord dysfunction is exacerbated by nebulizer use. Will use inhalers only. (4) Tracheobronchomalacia Current Visit: No Status: Chronic Assessment and plan: Chronic issue that the patient feels is exacerbated by nebulized treatments. Will use inhalers only. (5) Constipation Current Visit: No Status: Chronic Assessment and plan: continue stool softeners. Patient had a bowel movement yesterday and one today. Qualifiers: Constipation type: unspecified constipation type Qualified Code(s): K59.00 - Constipation, unspecified (6) DVT prophylaxis Current Visit: No Status: Acute Assessment and plan: Heparin SQ - Subjective Interval history: Patient seen and examined at bedside. Patient states that she feels slightly better. She feels like her breathing is gradually improving. She feels like her coughing is improved. She denies fever, chills. - Constitutional Vitals: Temp Pulse Resp BP Pulse Ox 97.8 F 99 20 123/78 97 01/05/17 04:54 01/05/17 16:00 01/05/17 16:00 01/05/17 16:00 01/05/17 16:00 General appearance: Present: cooperative, A&O X 3, no acute distress, answers questions appropriately - Respiratory Respiratory exam: Present: decreased breath sounds. Absent: rales, rhonchi, wheezes - Cardiovascular Cardiovascular exam: Present: RRR. Absent: gallop, rubs, systolic murmur - GI/Abdominal GI/Abdominal exam: Present: normal bowel sounds, soft. Absent: distended, tenderness - Extremities Exam Extremities exam: Present: warm. Absent: pedal edema, tenderness - Neurological Exam Neurological exam: Present: alert, CN II-XII intact, oriented X3 - Psychiatric Psychiatric exam: Present: anxious Internal Medicine: Result - Labs CBC & Chem 7: 01/05/17 04:05 01/05/17 04:05 Labs: Short CBC 01/05/17 Range/Units 04:05 WBC 12.9 H (4.3-11.1) K/mcL Hgb 12.8 (11.5-15.4) g/dL Hct 39.8 (35.3-44.9) % Plt Count 358 (140-400) K/mcL Neutrophils # 11.0 H (1.6-8.9) K/mcL BMP 01/05/17 04:05 Sodium 135 L Potassium 4.5 Chloride 97 L Carbon Dioxide 33 H BUN 17 Creatinine 0.66 Glucose 149 H Calcium 8.8 - ABG Interpretation ABG results: ABG ABG pH 7.42 pH Units (7.32-7.45) 01/05/17 04:24 ABG pCO2 66 mmHg (35-45) H 01/05/17 04:24 ABG pO2 91 mmHg (85-104) 01/05/17 04:24 ABG O2 Saturation 97 % (95-98) 01/05/17 04:24 PT/INR, D-dimer PT 10.5 Seconds (9.4-12.1) 01/01/17 18:18 Consult Discharge Plan - Plan Referrals: Paula Casiano, CLIENT SERVICE CONSULTANT [Primary Care Provider] - <Josue Chen - Last Filed: 01/05/17 20:01> Date of Encounter: 01/05/17 - Assessment and plan (1) Acute and chronic respiratory failure with hypercapnia Current Visit: Yes Status: Acute (2) COPD exacerbation Current Visit: Yes Status: Acute (3) Tracheomalacia Current Visit: Yes Status: Acute (4) HTN (hypertension), benign Current Visit: No Status: Chronic (5) Abdominal bloating Current Visit: No Status: Acute - Constitutional Vitals: Temp Pulse Resp BP Pulse Ox 97.8 F 107 24 121/66 96 01/05/17 04:54 01/05/17 19:00 01/05/17 19:00 01/05/17 19:00 01/05/17 19:00 Internal Medicine: Result - Labs CBC & Chem 7: 01/05/17 04:05 01/05/17 04:05 Labs: Short CBC 01/05/17 Range/Units 04:05 WBC 12.9 H (4.3-11.1) K/mcL Hgb 12.8 (11.5-15.4) g/dL Hct 39.8 (35.3-44.9) % Plt Count 358 (140-400) K/mcL Neutrophils # 11.0 H (1.6-8.9) K/mcL BMP 01/05/17 04:05 Sodium 135 L Potassium 4.5 Chloride 97 L Carbon Dioxide 33 H BUN 17 Creatinine 0.66 Glucose 149 H Calcium 8.8 - ABG Interpretation ABG results: ABG ABG pH 7.42 pH Units (7.32-7.45) 01/05/17 04:24 ABG pCO2 66 mmHg (35-45) H 01/05/17 04:24 ABG pO2 91 mmHg (85-104) 01/05/17 04:24 ABG O2 Saturation 97 % (95-98) 01/05/17 04:24 PT/INR, D-dimer PT 10.5 Seconds (9.4-12.1) 01/01/17 18:18 - Attending Attestation I examined this patient and my medical decision-making was reviewed with the Resident Physician on 01/05/17. I agree with the documented findings, disposition and treatment plan as described except to the extent set forth below. Ms. Blackburn is currently admitted for acute resp failure. She remains high risk due to potential for worsening resp status. Ms. Blackburn feels a little better at this time. No fever or chills. No CP. Still a lot of dyspnea. No GI issues. Exam alert. Mod distress due to breathing Heart tachy and reg Lungs with diffuse wheeze Abd soft I/P 1. Resp failure 2 COPD Further diagnoses and plan as above.
[2017-01-05] MEDS ORDERED: *HR* HYDROcodone/Acet 5/325 mg TABLET PO PRN (17:49)
[2017-01-05] MEDS ORDERED: Oxymetazoline Nasal SPRAY BOTTLE NS PRN (17:49)
[2017-01-05] MEDS ORDERED: Naloxone 0.4 MG/ML INJ IVP PRN (17:49)
[2017-01-05] MEDS ORDERED: Nitroglycerin 0.4 MG TAB.SUBL SL PRN (17:49)
[2017-01-05] MEDS ORDERED: Ondansetron 4 MG/2 ML VIAL IVP PRN (17:49)
[2017-01-05] MEDS ORDERED: *HR* LORazepam 2 MG/ML VIAL IVP PRN (17:49)
[2017-01-05] MEDS ORDERED: Lactulose Oral Soln 20 GM/30 ML UDC PO PRN (17:49)
[2017-01-05] MEDS ORDERED: Acetaminophen 325 MG TABLET PO PRN (17:49)
[2017-01-05] MEDS ORDERED: levoFLOXacin 750 MG TABLET PO SCH (19:00)
[2017-01-05] MEDS: ALPRAZolam 0.5 MG TABLET PO SCH (21:21)
[2017-01-05] MEDS: Fluticasone Propionate Nasal 50 MCG/SPRAY BOTTLE NS SCH (21:22)
[2017-01-06] MEDS: MethylPREDNISolone 40 MG/ML VIAL IVP SCH ×2 (01:58→13:50)
[2017-01-06] MEDS: *HR* Heparin 5,000 UNIT/ML VIAL SQ SCH ×3 (01:58→16:55)
[2017-01-06 05:29] LABS: Basophils # 0.1 K/mcL (0.0-0.2); Basophils % 0.6 %; Hematocrit 40.6 % (35.3-44.9); Hemoglobin 13.1 g/dL (11.5-15.4); Lymphocytes # 0.9 K/mcL (0.6-4.6); Lymphocytes % 7.6 %; Mean Corpuscular HGB Conc 32.3 g/dL (31.6-35.5); Mean Corpuscular Hemoglobin 30.2 pg (28.0-33.3); Mean Corpuscular Volume 93.5 fL (83.0-100.0); Mean Platelet Volume 8.6 fL (9.4-12.4); Monocytes % 8.2 %; Neutrophils # 9.7 K/mcL (1.6-8.9); Platelet Count 322 K/mcL (140-400); Red Blood Count 4.34 M/mcL (3.82-4.97); Red Cell Distribution Width 12.8 % (11.5-14.5); Segmented Neutrophils % 80.6 %
[2017-01-06 05:44] LABS: BUN/Creatinine Ratio 27 (6-26); Blood Urea Nitrogen 16 mg/dL (7-20); Calcium 8.9 mg/dL (8.6-10.8); Carbon Dioxide 35 mEq/L (19-29); Chloride 98 mEq/L (98-109); Glucose 115 mg/dL (70-99); Magnesium 2.1 mg/dL (1.6-2.6); Osmolality,Calculated 288 (280-300); Potassium 4.6 mEq/L (3.5-4.5); Sodium 138 mEq/L (136-145); eGFR For African Americans > 60 (> 60); eGFR For Non-African Americans > 60 (> 60)
[2017-01-06] MEDS ORDERED: ALPRAZolam 0.25 MG TABLET PO PRN (07:47)
[2017-01-06] MEDS: Simethicone 80 MG TAB.CHEW PO SCH ×3 (08:03→16:54)
[2017-01-06] MEDS: Budesonide/Formoterol 160/4.5 MDI IH SCH ×2 (08:17→20:21)
[2017-01-06] MEDS: Tiotropium 18 MCG inhalation IH SCH (08:18)
[2017-01-06] MEDS: Aspirin Enteric Coated 81 MG Tablet PO SCH (09:32)
[2017-01-06] MEDS: Sennosides/Docusate Sodium TABLET PO SCH ×2 (09:34→20:44)
--- NOTE | 2017-01-06 10:44 | Internal Med Progress Note ---
Date of Encounter: 01/06/17 Time of Encounter: 09:15 - Assessment and plan (1) Acute and chronic respiratory failure with hypercapnia Current Visit: Yes Status: Acute Assessment and plan: Secondary acute COPD exacerbation. Patient is now on her home oxygen dose and maintain her saturation. Continue oxygen supplementation. ENT evaluation requested (2) Acute exacerbation of chronic obstructive pulmonary disease Current Visit: No Status: Acute Assessment and plan: Gradually improving. Continue IV steroids as the patient states that she is unable to take by mouth prednisone. Continue bronchodilator Continue antibiotics. I spoke with Dr. Barrientos and requested him to re-evaluate this patient Code(s): J44.1 - Chronic obstructive pulmonary disease with (acute) exacerbation (3) DVT prophylaxis Current Visit: No Status: Acute Assessment and plan: Heparin SQ (4) Constipation Current Visit: No Status: Chronic Assessment and plan: continue stool softeners. Qualifiers: Constipation type: unspecified constipation type Qualified Code(s): K59.00 - Constipation, unspecified (5) Tracheobronchomalacia Current Visit: No Status: Chronic Assessment and plan: Chronic issue that the patient feels is exacerbated by nebulized treatments. Will use inhalers only. (6) Anxiety Current Visit: No Status: Chronic Assessment and plan: Increased Xanax to q4h prn patient wishes to remain at the current dose but with increased frequency - Subjective Interval history: Patient seen and examined in the ICU this morning. She reports of having difficulty breathing, states her nose is excessively dry and she is having to breath through her mouth which is causing her even more distress. She is requesting to be seen by an ENT. I spoke with Dr. Ahuja, who will evaluate the patient later today. Patient also reports of not being able to take PO steroids as per her primary inorganic chemical technician (Dr. Barrientos) who disagrees with this statement and will re- evaluate the patient later today. Patient is currently saturating well on 2L NC and is back to her baseline Oxygenation. It appears that her clinical presentation is also anxiety driven and she may benefit from an increase in her anti-anxiety medications. She rather take Xanax than Lorazepam. Will increase Xanax frequency. - Constitutional Vitals: Temp Pulse Resp BP Pulse Ox 97.8 F 89 16 125/73 95 01/06/17 07:31 01/06/17 04:00 01/06/17 08:24 01/06/17 04:00 01/06/17 08:24 General appearance: Present: cooperative, A&O X 3, no acute distress, answers questions appropriately - Head Head exam: Present: atraumatic, normocephalic - Eye Eye exam: Present: conjuntiva pink, sclera anicteric - Respiratory Respiratory exam: Present: decreased breath sounds. Absent: respiratory distress, wheezes - Cardiovascular Cardiovascular exam: Present: +S1, +S2, tachycardia. Absent: diastolic murmur, gallop, rubs, systolic murmur - GI/Abdominal GI/Abdominal exam: Present: normal bowel sounds, soft, no peritoneal signs. Absent: distended, tenderness - Extremities Exam Extremities exam: Present: warm, radial pulses palpable and symmetrical. Absent : calf tenderness, pedal edema - Neurological Exam Neurological exam: Present: alert, oriented X3 - Psychiatric Psychiatric exam: Present: anxious Internal Medicine: Result - Labs CBC & Chem 7: 01/06/17 05:01 01/06/17 05:01 Labs: Short CBC 01/06/17 Range/Units 05:01 WBC 12.0 H (4.3-11.1) K/mcL Hgb 13.1 (11.5-15.4) g/dL Hct 40.6 (35.3-44.9) % Plt Count 322 (140-400) K/mcL Neutrophils # 9.7 H (1.6-8.9) K/mcL BMP 01/06/17 05:01 Sodium 138 Potassium 4.6 H Chloride 98 Carbon Dioxide 35 H BUN 16 Creatinine 0.60 Glucose 115 H Calcium 8.9 - ABG Interpretation ABG results: ABG ABG pH 7.42 pH Units (7.32-7.45) 01/05/17 04:24 ABG pCO2 66 mmHg (35-45) H 01/05/17 04:24 ABG pO2 91 mmHg (85-104) 01/05/17 04:24 ABG O2 Saturation 97 % (95-98) 01/05/17 04:24 PT/INR, D-dimer PT 10.5 Seconds (9.4-12.1) 01/01/17 18:18 Consult Discharge Plan - Plan Referrals: Paula Casiano CNP [Primary Care Provider] -
[2017-01-06] MEDS: Levofloxacin 750 MG/150 ML 750 MG/150 ML BAG IVPB SCH (11:31)
--- NOTE | 2017-01-06 11:59 | ENT - Consult Note ---
<[place] - Last Filed: 01/06/17 12:47> Date of Encounter: 01/06/17 Time of Encounter: 11:50 Assessment and Plan (1) Nasal congestion Current Visit: Yes Status: Acute Without any overt signs of obstruction on physical exam, her congestion may be likely due to dry airways in setting of her anxiety Continue to encourage breathing through nose while on humidified oxygen Recommend sterile saline rinses in both nostrils 4 times a day Will start on Mupirocin ointment in nose up to three times a day (2) Rhinitis medicamentosa Current Visit: Yes Status: Acute Her condition is likely exacerbated by overuse of Afrin nasal spray Patient instructed on stopping these for now and continue only on saline washes and Mupirocin ointment History of Present Illness Consult date: 01/06/17 Reason for ENT Consult: other (nasal congestion) Requesting physician: Kathryn Guillne History of present illness: Patient presented to the ED from assisted living facility on 01/01/2017 for acute respiratory failure with wheezing and stridor, requiring racemic epi, aerosols, IV steroids, and BiPAP. She was just discharged the previous day for COPD exacerbation. She does have history of tracheomalacia, vocal cord dysfunction, and airway issues s/p multiple intubations in the past. She believes that her vocal cord dysfunction and tracheomalacia have both been made worse by previous use of nebulizers, and does not take them or oral steroids. Patient reported this morning that she was having increasing difficulty in breathing through her nose and states it feels congested despite being on humidified oxygen. Of note, she does have history of anxiety and is currently on Xanax. Past Med Surg Social Fam HX - Past Medical History Medical history: asthma, cancer, cardiomyopathy, CHF, COPD, coronary artery disease, GERD, hyperlipidemia, myocardial infarction, pulmonary embolus, other Psychiatric history: anxiety, depression - Past Surgical History Surgical History: angioplasty/stent, cancer surgery, cataract, cholecystectomy, sinus surgery - Social History Smoking Status: Former smoker Smokeless Tobacco Status: No Alcohol use: none Drug use: none - Family History Son Living Status: Still Living Hx Family GI Disorders: Yes Hx Family Neurologic Disorders: Yes (depression) Mother Living Status: Hx Family Cancer: Yes (Uterine) Sister Living Status: Still Living Hx Family Cardiac Disorders: Yes (Cerebrovascular accident) Hx Family Respiratory Disorders: No Hx Family Cancer: No Hx Family GI Disorders: No Hx Family Endocrine Disorder: No Hx Family Neuromuscular Disorders: No Hx Family Neurologic Disorders: No Hx Family HEENT Disorders: No Hx Family Autoimmune Disorders: No Daughter Living Status: Still Living Hx Family Cardiac Disorders: Yes (PE, SD) Hx Family Respiratory Disorders: Yes (COPD) Hx Family Cancer: No Hx Family GI Disorders: No Hx Family Endocrine Disorder: No Hx Family Neuromuscular Disorders: No Hx Family Neurologic Disorders: No Hx Family HEENT Disorders: No Hx Family Autoimmune Disorders: No Brother Family Member Ethnicity: Non- Living Status: Still Living Hx Family Cardiac Disorders: Yes (Coronary artery disease) Hx Family Respiratory Disorders: No Hx Family Cancer: No Hx Family GI Disorders: No Hx Family Endocrine Disorder: Yes (TYPE 2 DIABETES MELLITUS) Hx Family Neuromuscular Disorders: No Hx Family Neurologic Disorders: No Hx Family HEENT Disorders: No Hx Family Autoimmune Disorders: No Father Living Status: Hx Family Cardiac Disorders: Yes (Coronary artery disease) Hx Family Respiratory Disorders: No Hx Family Cancer: Yes (Bladder) Hx Family GI Disorders: No Hx Family Endocrine Disorder: No Hx Family Neuromuscular Disorders: No Hx Family Neurologic Disorders: No Hx Family HEENT Disorders: No Hx Family Autoimmune Disorders: No Medications and Allergies Budesonide/Formoterol 160/4.5 [Symbicort] 2 puff IH BID 12/19/14 [History] Oxygen 2.5 l NS AD 05/17/15 [History] Nitroglycerin [Nitrostat] 0.4 mg SL Q5M PRN 11/22/15 [History] Acetaminophen [Tylenol] 1,000 mg PO Q6HR PRN 12/20/15 [History] ALPRAZolam [Xanax 0.25 MG Tablet] 0.25 mg PO TID PRN 01/04/16 [History] Albuterol Neb [Proventil Neb] 2.5 mg IH QID 01/04/16 [History] Tiotropium [Spiriva] 18 mcg IH 0800 01/04/16 [History] HYDROcodone/Acet 5/325 mg [[place] 5-325 mg] 1 tab PO TID PRN 02/26/16 [History] Ondansetron ODT [Zofran ODT] 4 mg SL Q8HR PRN 02/26/16 [History] Bisacodyl [Dulcolax] 10 mg RC DAILY PRN 05/03/16 [History] Fluticasone Propionate Nasal [Flonase] 1 spr NS HS 05/03/16 [History] Metoprolol [Lopressor] 12.5 mg PO BID 05/03/16 [History] Albuterol Sulfate [Proair Hfa] 2 puff IH Q4H PRN 11/17/16 [History] Aspirin [Lo-Dose Aspirin EC] 81 mg PO DAILY 11/17/16 [History] Diclofenac Sodium [Voltaren] 1 appl TP QID PRN 11/17/16 [History] Lactulose 20 gm PO DAILY PRN 11/17/16 [History] Mv,Fe,Min/Lutein [A Thru Z [employer] Tablet] 1 tab PO DAILY 11/17/16 [ History] Polyethylene Glycol 3350 [MiraLAX] 17 gm PO DAILY PRN 11/17/16 [History] Omeprazole [PriLOSEC] 20 mg PO BID #60 11/19/16 [Rx] ALPRAZolam [Xanax 0.5 MG Tablet] 0.5 mg PO HS 12/26/16 [History] Oxymetazoline HCl [Long Acting Nasal [place]] 1 spray NS TID PRN 12/26/16 [History ] Simethicone [Gas-X] 80 mg PO QID PRN 12/26/16 [History] Syringe W-Needle,Disposab,1 ml [Allergy Syringe] 1 each MC QWEEK 12/26/16 [ History] Calcium Carbonate [Tums] 1,000 mg PO Q4HR PRN #120 tab 12/31/16 [Rx] Saliva Stimulant [Biotene Moisturizing Rinse] 1 spray PO Q2H PRN #1 bottle 12/31 [Rx] levoFLOXacin [Levaquin] 750 mg PO DAILY #1 tablet 12/31/16 [Rx] 3 Allergy/AdvReac Type Severity Reaction Status Date / Time acetylcysteine Allergy Severe Anaphylaxis Verified 02/26/16 09:32 Iodinated Contrast- Oral and Allergy See Verified 02/26/16 09:32 IV Dye Comments [Iodinated Contrast Media - IV Dye] ramelteon [From Rozerem] Allergy Difficulty Verified 02/26/16 09:32 Breathing Amoxicillin [From Augmentin] AdvReac Intermediate Nausea Verified 02/26/16 09:32 azithromycin [From Zithromax] AdvReac Intermediate Nausea Verified 02/26/16 09: 32 clavulanic acid AdvReac Intermediate Nausea Verified 02/26/16 09:32 [From Augmentin] dexlansoprazole AdvReac Mild Headache Verified 02/26/16 09:32 [From Dexilant] prednisone AdvReac Mild See Verified 02/26/16 09:32 Comments sertraline [From Zoloft] AdvReac Mild Depression Verified 02/26/16 09:32 Tetracycline AdvReac Mild Nausea Verified 02/26/16 09:32 Varenicline [From Chantix] AdvReac Mild Nightmare Verified 02/26/16 09:32 ENT - ROS - Constitutional Constitutional ROS: no fever(s), no snoring - EENT Nose, mouth and throat: nasal congestion, no abnormal hearing, no headache(s), no nasal discharge - Cardiovascular Cardiovascular ROS IM: no chest pain, no chest pain at rest - Respiratory dyspnea, no cough - Gastrointestinal Gastrointestinal: no dysphagia, no nausea, no vomiting - Psychiatric Psychiatric general: anxiety ENT Exam Initial Vital Signs Temp Pulse Resp BP Pulse Ox 97.8 F 140 32 196/114 98 01/01/17 17:54 01/01/17 17:54 01/01/17 17:54 01/01/17 17:54 01/01/17 17:54 - General physical appearance well developed, well nourished, moderate pain (respiratory) - Eyes PERRL, normal ocular movement - ENT normal nares, dry mucosa, Other (nasal septum was midline, no evidence of obstruction in both nares; tympanic membrane unremarkable bilaterally). negative: deviated nasal septum, nasal discharge - Neck no masses, no bruits, no lymphadectomy - Respiratory other (did have pursed lips while breathing through mouth) Exam Initial Vital Signs Temp Pulse Resp BP Pulse Ox 97.8 F 140 32 196/114 98 01/01/17 17:54 01/01/17 17:54 01/01/17 17:54 01/01/17 17:54 01/01/17 17:54 Results - Labs 01/06/17 05:01 01/06/17 05:01 Abnormal lab results WBC 12.0 K/mcL (4.3-11.1) H 01/06/17 05:01 MPV 8.6 fL (9.4-12.4) L 01/06/17 05:01 Neutrophils # 9.7 K/mcL (1.6-8.9) H 01/06/17 05:01 ABG pCO2 66 mmHg (35-45) H 01/05/17 04:24 ABG HCO3 43 mEq/L (21-27) H 01/05/17 04:24 ABG Total CO2 44.8 mEq/L (20-26) H 01/05/17 04:24 ABG Base Excess 15.3 mEq/L (-2.0 to 3.0) H 01/05/17 04:24 Potassium 4.6 mEq/L (3.5-4.5) H 01/06/17 05:01 Carbon Dioxide 35 mEq/L (19-29) H 01/06/17 05:01 BUN/Creatinine Ratio 27 (6-26) H 01/06/17 05:01 Glucose 115 mg/dL (70-99) H 01/06/17 05:01 POC Glucose 130 (58-89) H 01/04/17 20:14 Diabetes panel 01/06/17 Range/Units 05:01 Sodium 138 (136-145) mEq/L Potassium 4.6 H (3.5-4.5) mEq/L Chloride 98 (98-109) mEq/L Carbon Dioxide 35 H (19-29) mEq/L BUN 16 (7-20) mg/dL Creatinine 0.60 (0.57-1.11) mg/dL Glucose 115 H (70-99) mg/dL Calcium 8.9 (8.6-10.8) mg/dL Calcium panel 01/06/17 Range/Units 05:01 Calcium 8.9 (8.6-10.8) mg/dL Pituitary panel 01/06/17 Range/Units 05:01 Sodium 138 (136-145) mEq/L Potassium 4.6 H (3.5-4.5) mEq/L Chloride 98 (98-109) mEq/L Carbon Dioxide 35 H (19-29) mEq/L BUN 16 (7-20) mg/dL Creatinine 0.60 (0.57-1.11) mg/dL Glucose 115 H (70-99) mg/dL Calcium 8.9 (8.6-10.8) mg/dL Adrenal panel 01/06/17 Range/Units 05:01 Sodium 138 (136-145) mEq/L Potassium 4.6 H (3.5-4.5) mEq/L Chloride 98 (98-109) mEq/L Carbon Dioxide 35 H (19-29) mEq/L BUN 16 (7-20) mg/dL Creatinine 0.60 (0.57-1.11) mg/dL Glucose 115 H (70-99) mg/dL Calcium 8.9 (8.6-10.8) mg/dL All other labs normal. Consult Discharge Plan - Plan Referrals: Paula Casiano, COLLECTION SYSTEMS FOREMAN [Primary Care Provider] - <Serina Ahuja - Last Filed: 01/06/17 13:48> Date of Encounter: 01/06/17 Assessment and Plan (1) Rhinitis medicamentosa Current Visit: Yes Status: Acute ENT Exam Initial Vital Signs Temp Pulse Resp BP Pulse Ox 97.8 F 140 32 196/114 98 01/01/17 17:54 01/01/17 17:54 01/01/17 17:54 01/01/17 17:54 01/01/17 17:54 - General physical appearance moderate distress, chronically ill - Eyes normal ocular movement - ENT normal pinna, normal nares, Other (nasal septum was midline, no evidence of obstruction in both nares; tympanic membrane unremarkable bilaterally, nasal cavity widely patent bilaterally with no crusts or drainge.) - Respiratory other (did have pursed lips while breathing through mouth, increased respiratory effort) Exam Initial Vital Signs Temp Pulse Resp BP Pulse Ox 97.8 F 140 32 196/114 98 01/01/17 17:54 01/01/17 17:54 01/01/17 17:54 01/01/17 17:54 01/01/17 17:54 Results - Labs 01/06/17 05:01 01/06/17 05:01 Abnormal lab results WBC 12.0 K/mcL (4.3-11.1) H 01/06/17 05:01 MPV 8.6 fL (9.4-12.4) L 01/06/17 05:01 Neutrophils # 9.7 K/mcL (1.6-8.9) H 01/06/17 05:01 ABG pCO2 66 mmHg (35-45) H 01/05/17 04:24 ABG HCO3 43 mEq/L (21-27) H 01/05/17 04:24 ABG Total CO2 44.8 mEq/L (20-26) H 01/05/17 04:24 ABG Base Excess 15.3 mEq/L (-2.0 to 3.0) H 01/05/17 04:24 Potassium 4.6 mEq/L (3.5-4.5) H 01/06/17 05:01 Carbon Dioxide 35 mEq/L (19-29) H 01/06/17 05:01 BUN/Creatinine Ratio 27 (6-26) H 01/06/17 05:01 Glucose 115 mg/dL (70-99) H 01/06/17 05:01 POC Glucose 130 (58-89) H 01/04/17 20:14 Diabetes panel 01/06/17 Range/Units 05:01 Sodium 138 (136-145) mEq/L Potassium 4.6 H (3.5-4.5) mEq/L Chloride 98 (98-109) mEq/L Carbon Dioxide 35 H (19-29) mEq/L BUN 16 (7-20) mg/dL Creatinine 0.60 (0.57-1.11) mg/dL Glucose 115 H (70-99) mg/dL Calcium 8.9 (8.6-10.8) mg/dL Calcium panel 01/06/17 Range/Units 05:01 Calcium 8.9 (8.6-10.8) mg/dL Pituitary panel 01/06/17 Range/Units 05:01 Sodium 138 (136-145) mEq/L Potassium 4.6 H (3.5-4.5) mEq/L Chloride 98 (98-109) mEq/L Carbon Dioxide 35 H (19-29) mEq/L BUN 16 (7-20) mg/dL Creatinine 0.60 (0.57-1.11) mg/dL Glucose 115 H (70-99) mg/dL Calcium 8.9 (8.6-10.8) mg/dL Adrenal panel 01/06/17 Range/Units 05:01 Sodium 138 (136-145) mEq/L Potassium 4.6 H (3.5-4.5) mEq/L Chloride 98 (98-109) mEq/L Carbon Dioxide 35 H (19-29) mEq/L BUN 16 (7-20) mg/dL Creatinine 0.60 (0.57-1.11) mg/dL Glucose 115 H (70-99) mg/dL Calcium 8.9 (8.6-10.8) mg/dL All other labs normal.
[2017-01-06] MEDS: ALPRAZolam 0.25 MG TABLET PO PRN (13:50)
[2017-01-06] MEDS ORDERED: *HR* Morphine 2 MG/ML SYRINGE IVP ONE (14:21)
--- NOTE | 2017-01-06 15:19 | Event Note ---
Date of Encounter: 01/06/17 Time of Encounter: 15:12 This is a 71-year-old woman well known to me from clinic with a history of advanced COPD with 2 L nasal cannula requirement at all times tracheobronchomalacia diagnosed on bronchoscopy and vocal cord dysfunction all of which are being complicated by severe underlying anxiety and breathlessness which have precipitated multiple admissions for "COPD exacerbation" including last week with repeat hospitalization less than 24 hours after discharge. I long candid discussion with the patient at bedside and she requested inpatient transfer to [facility] for further evaluation. I explained to her that her chronic illnesses would be better served as an outpatient basis and that I did not see any acute reason to transfer her although acutely. I explained that I would discuss the case with the Clinical Quality Analyst at the [facility] which I have. They also were under the impression that this would be most likely better served as an outpatient referral given her stability of symptoms at present. However they were willing to evaluate her case if the patient still wanted to be transferred. I went back in again and explained to the patient that was in x-ray for preoperative think her breathlessness would improve as we continue to medicate her symptoms of anxiety and adjust her bronchodilator regimen and add positive airway pressure to her regimen on a permanent basis. The patient remained adamant that she wanted to be transferred and understood there may be a financial cost to be incurred for transport in this situation which she said she would cover if needed. I discussed the case again with the [facility] including the transfer for Center team and the accepting physician and they graciously agreed to evaluate her case when a bed becomes available at the main campus. In interim I recommend continuation of bronchodilators transitioning from IV to control steroids and additional anxiolytic and use of morphine to assuage her breathlessness which can be likely converted to a long-acting formulation I have also updated the primary medicine service is responsible for the day in day management of this patient.
[2017-01-06] MEDS ORDERED: *HR* Morphine 2 MG/ML SYRINGE IVP PRN (15:52)
--- NOTE | 2017-01-06 17:21 | Transfer Summary ---
Date of Encounter: 01/06/17 Time of Encounter: 09:40 Transfer Discharge Sum: Diag - Discharge Diagnosis (1) Acute and chronic respiratory failure with hypercapnia Status: Acute (2) Acute exacerbation of chronic obstructive pulmonary disease Status: Acute (3) DVT prophylaxis Status: Acute (4) Constipation Status: Chronic (5) Tracheobronchomalacia Status: Chronic (6) Anxiety Status: Chronic Transfer Discharge Sum: Med - Medications Active and Home Medications: Home Medications Budesonide/Formoterol 160/4.5 [Symbicort] 2 puff IH BID 12/19/14 [History Confirmed 01/01/17] Oxygen 2.5 l NS AD 05/17/15 [History Confirmed 01/01/17] Nitroglycerin [Nitrostat] 0.4 mg SL Q5M PRN 11/22/15 [History Confirmed 01/01/17 ] Acetaminophen [Tylenol] 1,000 mg PO Q6HR PRN 12/20/15 [History Confirmed ] ALPRAZolam [Xanax 0.25 MG Tablet] 0.25 mg PO TID PRN 01/04/16 [History Confirmed 01/01/17] Albuterol Neb [Proventil Neb] 2.5 mg IH QID 01/04/16 [History Confirmed 01/01/17 ] Tiotropium [Spiriva] 18 mcg IH 0800 01/04/16 [History Confirmed 01/01/17] HYDROcodone/Acet 5/325 mg [[place] 5-325 mg] 1 tab PO TID PRN 02/26/16 [History Confirmed 01/01/17] Ondansetron ODT [Zofran ODT] 4 mg SL Q8HR PRN 02/26/16 [History Confirmed ] Bisacodyl [Dulcolax] 10 mg RC DAILY PRN 05/03/16 [History Confirmed 01/01/17] Fluticasone Propionate Nasal [Flonase] 1 spr NS HS 05/03/16 [History Confirmed 01/01/17] Metoprolol [Lopressor] 12.5 mg PO BID 05/03/16 [History Confirmed 01/01/17] Albuterol Sulfate [Proair Hfa] 2 puff IH Q4H PRN 11/17/16 [History Confirmed ] Aspirin [Lo-Dose Aspirin EC] 81 mg PO DAILY 11/17/16 [History Confirmed 01/01/17 ] Diclofenac Sodium [Voltaren] 1 appl TP QID PRN 11/17/16 [History Confirmed 01/01] Lactulose 20 gm PO DAILY PRN 11/17/16 [History Confirmed 01/01/17] Mv,Fe,Min/Lutein [A Thru Z [employer] Tablet] 1 tab PO DAILY 11/17/16 [ History Confirmed 01/01/17] Polyethylene Glycol 3350 [MiraLAX] 17 gm PO DAILY PRN 11/17/16 [History Confirmed 01/01/17] Omeprazole [PriLOSEC] 20 mg PO BID #60 11/19/16 [Rx Confirmed 01/01/17] ALPRAZolam [Xanax 0.5 MG Tablet] 0.5 mg PO HS 12/26/16 [History Confirmed ] Oxymetazoline HCl [Long Acting Nasal [place]] 1 spray NS TID PRN 12/26/16 [ History Confirmed 01/01/17] Simethicone [Gas-X] 80 mg PO QID PRN 12/26/16 [History Confirmed 01/01/17] Syringe W-Needle,Disposab,1 ml [Allergy Syringe] 1 each MC QWEEK 12/26/16 [ History Confirmed 01/01/17] Calcium Carbonate [Tums] 1,000 mg PO Q4HR PRN #120 tab 12/31/16 [Rx Confirmed ] Saliva Stimulant [Biotene Moisturizing Rinse] 1 spray PO Q2H PRN #1 bottle 12/31 [Rx Confirmed 01/01/17] levoFLOXacin [Levaquin] 750 mg PO DAILY #1 tablet 12/31/16 [Rx Confirmed ] Active Medications Acetaminophen (Tylenol) 650 mg PO Q6HR PRN PRN Reason: fever GREATER than 101.2 F Stop: 07/03/17 21:26 Hydrocodone Bitart/Acetaminophen ([place] 5-325 Mg) 1 tab PO TID PRN PRN Reason: Pain Stop: 07/03/17 21:36 Albuterol Sulfate (Albuterol Inhaler) 2 puff IH [id number] [facility] Stop: 07/04/17 20:01 Last Admin: 01/06/17 15:52 Dose: 2 puff Albuterol Sulfate (Albuterol Inhaler) 2 puff IH Q2HR PRN PRN Reason: Shortness Of Breath/Wheezing Stop: 07/07/17 16:42 Alprazolam (Xanax) 0.5 mg PO HS [facility] PRN Reason: Protocol Stop: 07/04/17 21:01 Last Admin: 01/05/17 21:21 Dose: 0.5 mg Alprazolam (Xanax) 0.25 mg PO Q4H PRN; Protocol PRN Reason: Anxiety Stop: 07/08/17 07:48 Last Admin: 01/06/17 13:50 Dose: 0.25 mg Aspirin (Aspirin Ec) 81 mg PO DAILY [facility] Stop: 07/04/17 09:01 Last Admin: 01/06/17 09:32 Dose: 81 mg Budesonide/Formoterol Fumarate (Symbicort) 2 puff IH BIDR [facility] PRN Reason: Protocol Stop: 07/04/17 10:01 Last Admin: 01/06/17 08:17 Dose: 2 puff Calcium Carbonate (Tums) 1,000 mg PO Q4HR PRN; Protocol PRN Reason: Heartburn Stop: 07/03/17 21:36 Fluticasone Propionate (Flonase) 50 mcg NS [facility] PRN Reason: Protocol Stop: 07/04/17 21:01 Last Admin: 01/05/17 21:22 Dose: 50 mcg Heparin Sodium (Porcine) (Heparin) 5,000 unit SQ Q8H [facility] Stop: 07/04/17 17:46 Last Admin: 01/06/17 16:55 Dose: 5,000 unit Levofloxacin/Dextrose (Levaquin Premix 750mg/150 Ml) 750 mg in 150 mls @ 100 mls/hr IVPB DAILY [facility] PRN Reason: Protocol Stop: 07/08/17 11:01 Last Admin: 01/06/17 11:31 Dose: 100 mls/hr Lactulose (Lactulose) 20 gm PO DAILY PRN PRN Reason: Constipation Stop: 07/03/17 21:36 Metoprolol Tartrate (Lopressor) 12.5 mg PO BID [facility] Stop: 07/04/17 09:01 Last Admin: 01/06/17 09:32 Dose: 12.5 mg Morphine Sulfate (Morphine Sulfate) 2 mg IVP Q2H PRN PRN Reason: Analgesia Stop: 07/08/17 15:53 Mupirocin (Bactroban Oint) 1 appl TP TID [facility] Stop: 07/08/17 12:01 Last Admin: 01/06/17 15:06 Dose: Not Given Naloxone HCl (Narcan) 0.4 mg IVP Q2MIN PRN PRN Reason: Opioid Reversal Stop: 07/03/17 21:26 Nitroglycerin (Nitroglycerin) 0.4 mg SL Q5M PRN PRN Reason: Chest Pain Stop: 07/03/17 21:36 Ondansetron HCl (Zofran) 4 mg IVP Q6HR PRN; Protocol PRN Reason: Nausea And Vomiting Stop: 07/03/17 21:26 Polyethylene Glycol (Miralax) 17 gm PO DAILY PRN PRN Reason: Constipation Stop: 07/03/17 21:36 Prednisone (Prednisone) 40 mg PO DAILY [facility] Stop: 07/09/17 09:01 Senna/Docusate Sodium (Senna Plus) 2 each PO BID [facility] PRN Reason: Protocol Stop: 07/06/17 13:31 Last Admin: 01/06/17 09:34 Dose: 2 each Simethicone (Gas-X) 80 mg PO TIDAC [facility] Stop: 07/06/17 07:31 Last Admin: 01/06/17 16:54 Dose: 80 mg Tiotropium [place] (Spiriva) 18 mcg IH 0800 [facility] Stop: 07/04/17 08:01 Last Admin: 01/06/17 08:18 Dose: 18 mcg Transfer Discharge Sum: Data Procedures and tests throughout hospitalization: Pending Orders 01/01/17 21:25 Bed rest [RC] .ONCE Resuscitation Status: Active [RES] Routine 01/01/17 21:27 Cardiac monitoring [RC] .ONCE Head of bed elevation [RC] .ONCE Vital Signs Assessment [RC] Q4H 01/01/17 21:28 Admit as Inpatient Routine 01/01/17 21:32 Culture,Blood [BC] Stat 01/02/17 10:56 Consult to Gastroenterology [CONS] Routine 01/02/17 Dinner Regular Diet 01/03/17 18:01 Consult to Conformal Pad Former [CONS] Routine 01/04/17 13:19 BIPAP/CPAP On/Off Times [RC] ONCE 01/05/17 17:49 Acetaminophen [Tylenol] 650 mg PO Q6HR PRN Albuterol Sulfate [Albuterol Inhaler] 2 puff IH Q2HR PRN Calcium Carbonate [Tums] 1,000 mg PO Q4HR PRN HYDROcodone/Acet 5/325 mg [[place] 5-325 mg] 1 tab PO TID PRN Lactulose 20 gm PO DAILY PRN Naloxone [Narcan] 0.4 mg IVP Q2MIN PRN Nitroglycerin 0.4 mg SL Q5M PRN Ondansetron [Zofran] 4 mg IVP Q6HR PRN Polyethylene Glycol 3350 [MiraLAX] 17 gm PO DAILY PRN 01/05/17 20:00 Albuterol Sulfate [Albuterol Inhaler] 2 puff IH [id number] 01/05/17 21:00 ALPRAZolam [Xanax] 0.5 mg PO HS Fluticasone Propionate Nasal [Flonase] 50 mcg NS HS Metoprolol [Lopressor] 12.5 mg PO BID Sennosides/Docusate Sodium [Senna Plus] 2 each PO BID 01/05/17 22:00 Budesonide/Formoterol 160/4.5 [Symbicort] 2 puff IH BIDR 01/06/17 01:45 Heparin 5,000 unit SQ Q8H 01/06/17 07:30 Simethicone [Gas-X] 80 mg PO TIDAC 01/06/17 08:00 Tiotropium [Spiriva] 18 mcg IH 0800 01/06/17 09:00 Aspirin Enteric Coated [Aspirin EC] 81 mg PO DAILY 01/06/17 10:35 Consult to ENT [CONS] Routine ALPRAZolam [Xanax] 0.25 mg PO Q4H PRN 01/06/17 11:00 Levofloxacin 750 MG/150 ML [Levaquin Premix 750mg/150 mL] 750 mg in 150 ml IVPB DAILY 01/06/17 12:00 Mupirocin [Bactroban Oint] 1 appl TP TID 01/06/17 15:52 Morphine [Morphine Sulfate] 2 mg IVP Q2H PRN 01/07/17 04:00 Basic Metabolic Panel AM 0400 Basic Metabolic Panel AM 0400 Complete Blood Count [HEME] AM 0400 Complete Blood Count [HEME] AM 0400 Magnesium AM 0400 Magnesium AM 0400 Phosphorous AM 0400 01/07/17 09:00 predniSONE 40 mg PO DAILY 01/08/17 04:00 Basic Metabolic Panel AM 0400 Complete Blood Count [HEME] AM 0400 Magnesium AM 0400 01/09/17 04:00 Basic Metabolic Panel AM 0400 Complete Blood Count [HEME] AM 0400 Magnesium AM 0400 01/10/17 04:00 Basic Metabolic Panel AM 0400 Complete Blood Count [HEME] AM 0400 Magnesium AM 0400 - Impressions ITS Impressions Chest X-Ray 01/04/17 08:18 IMPRESSION: No acute process. D/ / Toi Medeiros MD / Toi Medeiros MD Interpreting Provider: Toi Medeiros MD Transfer Discharge Sum: Prov Date of admission: 01/01/17 21:05 Primary care physician: Paula Casiano, Consults: 01/02/17 10:56 Consult to Gastroenterology [CONS] Routine Consulting Provider: Elian Monet Reason for Consult: abdominal pain and bloating Call Completed: No 01/03/17 18:01 Consult to Conformal Pad Former [CONS] Routine Reason for SW Consult: discharge planning 01/06/17 10:35 Consult to ENT [CONS] Routine Consulting Provider: ONDINA Monet Reason for Consult: nasal congestion, difficulty breathing Call Completed: Yes Discharging clinician: Kathryn Guillen Anticipated date of transfer: 01/06/17 Receiving physician/facility: [facility] Transfer Discharge Sum: A/P - Plan Functional capacity at transfer: independent ambulation Overall status at transfer: patient is back to baseline Disposition: Transfer Other Transfer Discharge Sum: Hosp Hospital course: Ms. Blackburn is a 71 year old female ith a history of advanced COPD with 2 L nasal cannula requirement at all times tracheobronchomalacia diagnosed on bronchoscopy and vocal cord dysfunction all of which are being complicated by severe underlying anxiety and breathlessness which have precipitated multiple admissions for "COPD exacerbation" including last week with repeat hospitalization less than 24 hours after discharge. As per patient's request transfer to [facility] was initiated by pulmonary service. Patient has been accepted at [facility]. Discharge pending bed availability. - Time Spent with Patient Total time spent providing and/or coordinating transfer services: Greater than 30 minutes Transfer Discharge Sum: Exam - Constitutional Vitals: Vital Signs Temp Pulse Resp BP Pulse Ox 01/06/17 16:00 94 20 140/90 96 01/06/17 15:55 16 97 01/06/17 14:00 97 20 147/85 97 01/06/17 12:14 16 95 01/06/17 12:00 97 17 132/77 97 01/06/17 11:47 97.9 F 01/06/17 10:00 112 21 140/80 96 01/06/17 08:24 16 95 01/06/17 07:31 97.8 F 01/06/17 05:22 98.5 F 01/06/17 04:00 89 15 125/73 96 01/06/17 03:55 16 96 01/06/17 00:40 98 F 01/06/17 00:30 86 01/06/17 00:00 88 18 107/64 96 01/05/17 23:50 20 95 01/05/17 20:46 98.1 F 01/05/17 20:08 20 97 01/05/17 19:41 103 01/05/17 19:00 107 24 121/66 96 Intake and Output 01/06/17 01/06/17 01/06/17 07:59 15:59 23:59 Output Total 600 / 600 350 / 350 650 / 650 Balance -600 / -600 -350 / -350 -650 / -650 Output: Urine 600 / 600 350 / 350 650 / 650 Other: Meal Lunch Percent of Meal Consumed 5% Stool Size Small Large Stool Consistency formed formed # Voids 1 2 # Bowel Movements 1 Weight 65.12 kg Patient Weight 01/06/17 23:59 Weight 65.12 kg
--- NOTE | 2017-01-06 17:30 | Electrocardiograph Report ---
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
[2017-01-06] MEDS: Fluticasone Propionate Nasal 50 MCG/SPRAY BOTTLE NS SCH (20:42)
[2017-01-06] MEDS: ALPRAZolam 0.5 MG TABLET PO SCH (20:44)
--- NOTE | 2017-01-06 20:49 | Electrocardiograph Report ---
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
[2017-01-07] MEDS: ALPRAZolam 0.25 MG TABLET PO PRN ×3 (00:49→13:34)
[2017-01-07] MEDS: *HR* Heparin 5,000 UNIT/ML VIAL SQ SCH ×2 (00:50→08:32)
[2017-01-07 06:22] LABS: Hematocrit 39.9 % (35.3-44.9); Hemoglobin 12.7 g/dL (11.5-15.4); Mean Corpuscular HGB Conc 31.8 g/dL (31.6-35.5); Mean Corpuscular Hemoglobin 29.5 pg (28.0-33.3); Mean Corpuscular Volume 92.8 fL (83.0-100.0); Mean Platelet Volume 8.9 fL (9.4-12.4); Platelet Count 304 K/mcL (140-400); Red Cell Distribution Width 12.7 % (11.5-14.5)
[2017-01-07 06:40] LABS: BUN/Creatinine Ratio 22 (6-26); Blood Urea Nitrogen 13 mg/dL (7-20); Calcium 8.6 mg/dL (8.6-10.8); Carbon Dioxide 34 mEq/L (19-29); Chloride 96 mEq/L (98-109); Glucose 88 mg/dL (70-99); Magnesium 1.8 mg/dL (1.6-2.6); Osmolality,Calculated 286 (280-300); Sodium 138 mEq/L (136-145); eGFR For African Americans > 60 (> 60); eGFR For Non-African Americans > 60 (> 60)
[2017-01-07 06:46] LABS: Large Platelets Present (Not Present); Lymphocytes # 2.4 K/mcL (0.6-4.6); Monocytes # 2.1 K/mcL (0.0-1.3); Neutrophils # 10.1 K/mcL (1.6-8.9); Platelet Estimate Normal (Normal); Polychromasia 1+ (Not Present); Reactive Lymphocytes Present (Not Present)
[2017-01-07] MEDS: Budesonide/Formoterol 160/4.5 MDI IH SCH (07:51)
[2017-01-07] MEDS: Tiotropium 18 MCG inhalation IH SCH (07:52)
[2017-01-07] MEDS: Aspirin Enteric Coated 81 MG Tablet PO SCH (08:32)
[2017-01-07] MEDS: Sennosides/Docusate Sodium TABLET PO SCH (08:32)
[2017-01-07] MEDS: Simethicone 80 MG TAB.CHEW PO SCH ×2 (08:32→11:45)
[2017-01-07] MEDS: Levofloxacin 750 MG/150 ML 750 MG/150 ML BAG IVPB SCH (08:33)
[2017-01-07] MEDS ORDERED: predniSONE 20 MG TABLET PO SCH (09:00)
[2017-01-07 10:50] VITALS: BP 111/75
--- NOTE | 2017-01-07 15:47 | Internal Med Progress Note ---
<EmmaleathagloriaMatthew carrillo - Last Filed: 01/07/17 16:00> Date of Encounter: 01/07/17 Time of Encounter: 11:00 - Assessment and plan (1) Acute and chronic respiratory failure with hypercapnia Status: Acute Assessment and plan: - Secondary acute COPD exacerbation. - Patient is now on her home oxygen dose and maintain her saturation. - Continue oxygen supplementation. - ENT evaluation: nasal congestion due to dry airways in setting of anxiety. Recommend sterile saline rinses in both nostrils 4 times a day. Will start on Mupirocin ointment in nose up to three times a day. Rhinitis secondary to overuse of Afrin. Patient instructed on stopping these for now and continue only on saline washes and Mupirocin ointment. - Patient has requested transfer to [facility] for further evaluation (2) Acute exacerbation of chronic obstructive pulmonary disease Status: Acute Assessment and plan: Gradually improving. Recommend transitioning from IV steroids to PO steroids. Continue bronchodilator Continue antibiotics. (3) Tracheobronchomalacia Status: Chronic Assessment and plan: Chronic issue that the patient feels is exacerbated by nebulized treatments. Will use inhalers only. (4) Constipation Status: Resolved Assessment and plan: Patient had bowel movement yesterday. - Continue bisacodyl. Qualifiers: Qualified Code(s): K59.00 - Constipation, unspecified (5) Anxiety Status: Acute Assessment and plan: Continue xanax. (6) DVT prophylaxis Status: Acute Assessment and plan: Heparin SQ - Subjective Interval history: Ms. Blackburn is a 71 year old female who presented to the ER in respiratory distress with profound wheezing, stridor, and impending respiratory failure. She was treated with racemic epinephrine, aerosols, and IV steroids. When seen today, patient denies shortness of breath at rest but admits to shortness of breath with exertion. She also admits to some nausea, but denies any vomiting. She denies any chest pain, fever, chills, light-headedness, dizziness, syncope, or abdominal pain. - Constitutional Vitals: Temp Pulse Resp BP Pulse Ox 97.2 F L 88 14 111/75 98 01/07/17 10:48 01/07/17 10:48 01/07/17 11:23 01/07/17 10:48 01/07/17 11:23 General appearance: Present: cooperative, A&O X 3, no acute distress, answers questions appropriately - Respiratory Respiratory exam: Present: CTAB. Absent: respiratory distress, rhonchi, stridor , wheezes, tachypnea - Cardiovascular Cardiovascular exam: Present: RRR, +S1, +S2. Absent: diastolic murmur, systolic murmur, tachycardia - GI/Abdominal GI/Abdominal exam: Present: normal bowel sounds, soft. Absent: distended, guarding, rebound, tenderness, no peritoneal signs Additional comments: Multiple sites of ecchymoses on abdomen from intramuscular injections. Internal Medicine: Result - Labs CBC & Chem 7: 01/07/17 05:13 01/07/17 05:13 Labs: Short CBC 01/07/17 Range/Units 05:13 WBC 14.8 H (4.3-11.1) K/mcL Hgb 12.7 (11.5-15.4) g/dL Hct 39.9 (35.3-44.9) % Plt Count 304 (140-400) K/mcL Neutrophils # 10.1 H (1.6-8.9) K/mcL BMP 01/07/17 05:13 Sodium 138 Potassium 4.0 Chloride 96 L Carbon Dioxide 34 H BUN 13 Creatinine 0.58 Glucose 88 Calcium 8.6 - ABG Interpretation ABG results: ABG ABG pH 7.42 pH Units (7.32-7.45) 01/05/17 04:24 ABG pCO2 66 mmHg (35-45) H 01/05/17 04:24 ABG pO2 91 mmHg (85-104) 01/05/17 04:24 ABG O2 Saturation 97 % (95-98) 01/05/17 04:24 PT/INR, D-dimer PT 10.5 Seconds (9.4-12.1) 01/01/17 18:18 Consult Discharge Plan - Plan Referrals: Paula Casiano, [employer]PERATIONS M[facility] [Primary Care Provider] - (Patient went to [facility], no PCP appointment needed) <Pancho Farley - Last Filed: 01/07/17 19:45> Date of Encounter: 01/07/17 - Constitutional Vitals: Temp Pulse Resp BP Pulse Ox 97.2 F L 88 14 111/75 98 01/07/17 10:48 01/07/17 10:48 01/07/17 11:23 01/07/17 10:48 01/07/17 11:23 Internal Medicine: Result - Labs CBC & Chem 7: 01/07/17 05:13 01/07/17 05:13 Labs: Short CBC 01/07/17 Range/Units 05:13 WBC 14.8 H (4.3-11.1) K/mcL Hgb 12.7 (11.5-15.4) g/dL Hct 39.9 (35.3-44.9) % Plt Count 304 (140-400) K/mcL Neutrophils # 10.1 H (1.6-8.9) K/mcL BMP 01/07/17 05:13 Sodium 138 Potassium 4.0 Chloride 96 L Carbon Dioxide 34 H BUN 13 Creatinine 0.58 Glucose 88 Calcium 8.6 - ABG Interpretation ABG results: ABG ABG pH 7.42 pH Units (7.32-7.45) 01/05/17 04:24 ABG pCO2 66 mmHg (35-45) H 01/05/17 04:24 ABG pO2 91 mmHg (85-104) 01/05/17 04:24 ABG O2 Saturation 97 % (95-98) 01/05/17 04:24 PT/INR, D-dimer PT 10.5 Seconds (9.4-12.1) 01/01/17 18:18 - Attending Attestation I examined this patient and my medical decision-making was reviewed with the Resident Physician. I agree with the documented findings, disposition and treatment plan as described except to the extent set forth below. She reports severe shortness of breath. I have reviewed pulmonology notes. They recommended transfer to [facility]. I agree with be beneficial to get a second opinion. The patient has a bed at the [facility] and we will transfer her back by ambulance this morning. On exam she is in no acute distress, anxious. Vital signs are stable. Heart is tachycardic but regular S1-S2. Lungs are clear with good bilateral air entry. It is my first day taking care of this patient. All problems are new to me today.
== END 2017-01-07 14:45 | disposition short-term general hospital (02) | DRG 189 ==
LOC: EMEROO 17:50 → ICNU 21:05 → SUATTDRO 21:05 → ICNU 22:40 → 3NENU 01-03 02:31 → ICNU 01-04 20:49 → 2NNU 01-06 22:14
PROVIDERS: ADMIT Pediatrics; ATTEND Internal Medicine

== ENCOUNTER 2017-02-19 15:48 | Inpatient (IN) ==
[2017-02-19] MEDS ORDERED: Ipratropium/Albuterol Neb 3 ML IH ONE ×2 (16:03→16:08)
[2017-02-19] MEDS ORDERED: methylPREDNISolone 125 MG/2 ML VIAL IVP ONE (16:03)
[2017-02-19 16:20] LABS: Basophils # 0.1 K/mcL (0.0-0.2); Basophils % 0.8 %; Eosinophils # 0.3 K/mcL (0.0-0.6); Eosinophils % 2.5 %; Hematocrit 43.7 % (35.3-44.9); Hemoglobin 14.5 g/dL (11.5-15.4); Immature Granulocytes % 0.4 % (0-4); Lymphocytes # 2.3 K/mcL (0.6-4.6); Lymphocytes % 22.4 %; Mean Corpuscular HGB Conc 33.2 g/dL (31.6-35.5); Mean Corpuscular Hemoglobin 30.1 pg (28.0-33.3); Mean Corpuscular Volume 90.7 fL (83.0-100.0); Mean Platelet Volume 8.1 fL (9.4-12.4); Monocytes # 1.1 K/mcL (0.0-1.3); Monocytes % 10.6 %; Neutrophils # 6.4 K/mcL (1.6-8.9); Platelet Count 418 K/mcL (140-400); Red Blood Count 4.82 M/mcL (3.82-4.97); Red Cell Distribution Width 13.3 % (11.5-14.5); Segmented Neutrophils % 63.3 %
[2017-02-19 16:25] LABS: VBG HCO3 30 mEq/L (21-27); VBG PCO2 59 mmHg (41-51); VBG PH 7.31 pH Units (7.32-7.42); VBG PO2 39 mmHg (25-50)
[2017-02-19 16:33] LABS: BUN/Creatinine Ratio 12 (6-26); Blood Urea Nitrogen 8 mg/dL (7-20); Calcium 9.8 mg/dL (8.6-10.8); Carbon Dioxide 28 mEq/L (19-29); Chloride 97 mEq/L (98-109); Glucose 98 mg/dL (70-99); Osmolality,Calculated 276 (280-300); Potassium 4.4 mEq/L (3.5-4.5); Sodium 134 mEq/L (136-145); eGFR For African Americans > 60 (> 60); eGFR For Non-African Americans > 60 (> 60)
[2017-02-19] MEDS ORDERED: *HR* LORazepam 2 MG/ML VIAL IVP ONE ×2 (16:46→17:42)
--- NOTE | 2017-02-19 17:40 | Emergency Department Note ---
Disposition Clinical Impression: COPD exacerbation Disposition: Admitted As Inpatient Condition: Fair Forms: ED Satisfaction Letter General Adult HPI - General Chief complaint: ED Shortness of Breath/Dyspnea Stated complaint: VERO Time Seen by Provider: 02/19/17 15:53 Source: patient, EMS Limitations: no limitations Nursing Notes Reviewed: Yes Vital Signs Reviewed: Yes - History of Present Illness HPI Narrative: Patient presents today for evaluation of respiratory distress. 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 Patient has severe emphysema and is on home oxygen. Patient has minimal air movement on initial exam. Patient is anxious and using pursed lips to breathe. 2. Patient states that she has not had cough or fevers at home. Symptoms similar to previous. Patient states she has tried her best to not come to the hospital she does not like being in the hospital. Patient admits to intermittent sharp chest pains in the left side of her chest. Occasionally worse with inspiration. She states she gets this with his these symptoms but the chest pain is not reproducible and is not with every breath. Pain Scale: 6 - Related Data Home Medications Medication Instructions Recorded Confirmed Oxygen 2.5 l NS AD 05/17/15 02/19/17 Nitroglycerin [Nitrostat] 0.4 mg SL Q5M PRN 11/22/15 02/19/17 Acetaminophen [Tylenol] 1,000 mg PO Q6HR PRN 12/20/15 02/19/17 ALPRAZolam [Xanax 0.25 MG Tablet] 0.25 mg PO TID PRN 01/04/16 02/19/17 Albuterol Neb [Proventil Neb] 2.5 mg IH QID 01/04/16 02/19/17 Tiotropium [Spiriva] 18 mcg IH 0800 01/04/16 02/19/17 HYDROcodone/Acet 5/325 mg [[place] 1 tab PO TID PRN 02/26/16 02/19/17 5-325 mg] Ondansetron ODT [Zofran ODT] 4 mg SL Q8HR PRN 02/26/16 02/19/17 Bisacodyl [Dulcolax] 10 mg RC DAILY PRN 05/03/16 02/19/17 Fluticasone Propionate Nasal 1 spr NS HS 05/03/16 02/19/17 [Flonase] Metoprolol [Lopressor] 12.5 mg PO BID 05/03/16 02/19/17 Albuterol Sulfate [Proair Hfa] 2 puff IH Q4H PRN 11/17/16 02/19/17 Aspirin [Lo-Dose Aspirin EC] 81 mg PO DAILY 11/17/16 02/19/17 Diclofenac Sodium [Voltaren] 1 appl TP QID PRN 11/17/16 02/19/17 Lactulose 20 gm PO DAILY PRN 11/17/16 02/19/17 Mv,Fe,Min/Lutein [A Thru Z Select 1 tab PO DAILY 11/17/16 02/19/17 Women's Tablet] Polyethylene Glycol 3350 [MiraLAX] 17 gm PO DAILY PRN 11/17/16 02/19/17 ALPRAZolam [Xanax 0.5 MG Tablet] 0.5 mg PO HS 12/26/16 02/19/17 Simethicone [Gas-X] 80 mg PO QID PRN 12/26/16 02/19/17 Syringe W-Needle,Disposab,1 ml 1 each IJ QWEEK 12/26/16 02/19/17 [Allergy Syringe] Guaifenesin [Mucinex] 600 mg PO Q12H PRN 02/19/17 02/19/17 Sennosides [Senna] 8.6 mg PO HS PRN 02/19/17 02/19/17 Previous Rx's Medication Instructions Recorded Omeprazole [PriLOSEC] 20 mg PO BID #60 11/19/16 Calcium Carbonate [Tums] 1,000 mg PO Q4HR PRN #120 tab 12/31/16 Allergies Allergy/AdvReac Type Severity Reaction Status Date / Time acetylcysteine Allergy Severe Anaphylaxis Verified 02/26/16 09:32 Iodinated Contrast- Oral and Allergy See Verified 02/26/16 09:32 IV Dye Comments [Iodinated Contrast Media - IV Dye] ramelteon [From Rozerem] Allergy Difficulty Verified 02/26/16 09:32 Breathing Amoxicillin [From Augmentin] AdvReac Intermediate Nausea Verified 02/26/16 09:32 azithromycin [From Zithromax] AdvReac Intermediate Nausea Verified 02/26/16 09: 32 clavulanic acid AdvReac Intermediate Nausea Verified 02/26/16 09:32 [From Augmentin] dexlansoprazole AdvReac Mild Headache Verified 02/26/16 09:32 [From Dexilant] prednisone AdvReac Mild See Verified 02/26/16 09:32 Comments sertraline [From Zoloft] AdvReac Mild Depression Verified 02/26/16 09:32 Tetracycline AdvReac Mild Nausea Verified 02/26/16 09:32 Varenicline [From Chantix] AdvReac Mild Nightmare Verified 02/26/16 09:32 Review of Systems: CONSTITUTIONAL: No weight loss, fever, chills, weakness or fatigue. HEENT: Eyes: No visual changes. Ears, Nose, Throat: No hearing loss, difficulty talking or unable to swallow. SKIN: No rash or itching. CARDIOVASCULAR: Chest pain RESPIRATORY: Difficulty breathing GASTROINTESTINAL: No anorexia, nausea, vomiting or diarrhea. No abdominal pain or blood. GENITOURINARY: No burning on urination or hematuria. NEUROLOGICAL: No headache, dizziness, syncope, paralysis, ataxia, numbness or tingling in the extremities. No change in bowel or bladder control. MUSCULOSKELETAL: No muscle pain, back pain, joint pain or stiffness. 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 Head: Normocephalic Atraumatic Eyes: PERRL, EOMI ENT: upper airway wheezing Neck: supple, no meningismus Chest: Minimal breath sounds bilaterally Cardiac: Tachycardic, no murmurs, rubs or gallops Abdomen: soft, nontender, nondistended; no guarding, rebound, or tenderness to percussion Musculoskeletal: Calves symmetric, nontender, no palpable cord Skin: No rash, normal skin tone Neuro: Alert and Oriented to person, place, and time; No focal deficit, CN 2-12 symmetric and intact - General Limitations: no limitations General appearance: alert Course - Reevaluation(s) Reevaluation #1: Patient was placed on BiPAP as she states she does not tolerate albuterol without BiPAP secondary to the type of mass. Patient has been given a Pap and breathing treatments along with Ativan. After observation in the emergency room patient has improved will need further observation and admission. - Consultations Consultation #1: Discussed with Dr. Paiz. Patient accepted for admission. Vital Signs Temperature 98.2 F 02/19/17 15:51 Pulse Rate 93 02/19/17 15:51 Respiratory Rate 28 02/19/17 15:51 Blood Pressure 221/163 02/19/17 15:51 O2 Sat by Pulse Oximetry 97 02/19/17 15:51 Temperature 98.2 F 02/19/17 15:51 Pulse Rate 118 02/19/17 18:33 Respiratory Rate 24 02/19/17 18:33 Blood Pressure 128/78 02/19/17 18:33 O2 Sat by Pulse Oximetry 99 02/19/17 18:33 Oxygen Delivery Oxygen Delivery Bipap Medical Decision Making - Lab Data Result diagrams: 02/19/17 16:13 02/19/17 16:13 Lab Results 02/19/17 02/19/17 02/19/17 Range/Units 16:13 16:13 16:13 WBC 10.1 (4.3-11.1) K/mcL RBC 4.82 (3.82-4.97) M/mcL Hgb 14.5 (11.5-15.4) g/dL Hct 43.7 (35.3-44.9) % MCV 90.7 (83.0-100.0) fL MCH 30.1 (28.0-33.3) pg MCHC 33.2 (31.6-35.5) g/dL RDW 13.3 (11.5-14.5) % Plt Count 418 H (140-400) K/mcL MPV 8.1 L (9.4-12.4) fL Immature Gran % 0.4 (0-4) % Seg Neutrophils % 63.3 % Lymphocytes % 22.4 % Monocytes % 10.6 % Eosinophils % 2.5 % Basophils % 0.8 % Neutrophils # 6.4 (1.6-8.9) K/mcL Lymphocytes # 2.3 (0.6-4.6) K/mcL Monocytes # 1.1 (0.0-1.3) K/mcL Eosinophils # 0.3 (0.0-0.6) K/mcL Basophils # 0.1 (0.0-0.2) K/mcL VBG pH (7.32-7.42) pH Units VBG pCO2 (41-51) mmHg VBG pO2 (25-50) mmHg VBG HCO3 (21-27) mEq/L Sodium 134 L (136-145) mEq/L Potassium 4.4 (3.5-4.5) mEq/L Chloride 97 L (98-109) mEq/L Carbon Dioxide 28 (19-29) mEq/L BUN 8 (7-20) mg/dL Creatinine 0.68 (0.57-1.11) mg/dL Est GFR ( Amer) > 60 (> 60) Est GFR (Non-Af Amer) > 60 (> 60) BUN/Creatinine Ratio 12 (6-26) Glucose 98 (70-99) mg/dL Calculated Osmolality 276 L (280-300) Calcium 9.8 (8.6-10.8) mg/dL Troponin I 0.00 (0-0.03) ng/mL B-Natriuretic Peptide (0-100) pg/mL 02/19/17 02/19/17 Range/Units 16:13 16:22 WBC (4.3-11.1) K/mcL RBC (3.82-4.97) M/mcL Hgb (11.5-15.4) g/dL Hct (35.3-44.9) % MCV (83.0-100.0) fL MCH (28.0-33.3) pg MCHC (31.6-35.5) g/dL RDW (11.5-14.5) % Plt Count (140-400) K/mcL MPV (9.4-12.4) fL Immature Gran % (0-4) % Seg Neutrophils % % Lymphocytes % % Monocytes % % Eosinophils % % Basophils % % Neutrophils # (1.6-8.9) K/mcL Lymphocytes # (0.6-4.6) K/mcL Monocytes # (0.0-1.3) K/mcL Eosinophils # (0.0-0.6) K/mcL Basophils # (0.0-0.2) K/mcL VBG pH 7.31 L (7.32-7.42) pH Units VBG pCO2 59 H (41-51) mmHg VBG pO2 39 (25-50) mmHg VBG HCO3 30 H (21-27) mEq/L Sodium (136-145) mEq/L Potassium (3.5-4.5) mEq/L Chloride (98-109) mEq/L Carbon Dioxide (19-29) mEq/L BUN (7-20) mg/dL Creatinine (0.57-1.11) mg/dL Est GFR ( Amer) (> 60) Est GFR (Non-Af Amer) (> 60) BUN/Creatinine Ratio (6-26) Glucose (70-99) mg/dL Calculated Osmolality (280-300) Calcium (8.6-10.8) mg/dL Troponin I (0-0.03) ng/mL B-Natriuretic Peptide 120 H (0-100) pg/mL Attestation Statement - Attestation Attestation: I examined this patient and my medical decision-making was reviewed with the Resident Physician. I agree with the documented findings, disposition and treatment plan as described except to the extent set forth below. Patient eating and shortness of breath. Patient states she has tracheomalacia. She sees pulmonology. She has trouble with high flow oxygen. On examination patient is tachypneic using pursed lip breathing. Clear lungs. Plan. Patient given nebs and placed on BiPAP. She is more comfortable at this time. Admitted to medicine.
[2017-02-19] MEDS ORDERED: 0.9 % Sodium Chloride 500 ML IVC ONE (17:42)
--- NOTE | 2017-02-19 18:52 | Emergency Department Note ---
START Narrative - START START: EKG shows sinus tachycardia with ventricular rate of 104. Patient has no significant ST elevations or depressions. MD interval 150. QRS 74. QTC 370. Comparison EKG of 01/02/17.
[2017-02-19] MEDS ORDERED: Albuterol 2.5 MG/3 ML NEBULIZER IH PRN (20:09)
[2017-02-19] MEDS ORDERED: Sennosides 8.6 MG TABLET PO PRN (20:16)
[2017-02-19] MEDS ORDERED: Nitroglycerin 0.4 MG TAB.SUBL SL PRN (20:16)
[2017-02-19] MEDS ORDERED: *HR* HYDROcodone/Acet 5/325 mg TABLET PO PRN (20:16)
[2017-02-19] MEDS ORDERED: Ondansetron ODT 4 MG TAB.RAPDIS SL PRN (20:16)
[2017-02-19] MEDS ORDERED: ALPRAZolam 0.25 MG TABLET PO PRN (20:16)
[2017-02-19] MEDS ORDERED: (Diclofenac Sodium [Voltaren] 1 APPL) TP PRN (20:16)
[2017-02-19] MEDS ORDERED: Bisacodyl 10 MG RECTAL SUPPOSITORY RC PRN (20:16)
[2017-02-19] MEDS ORDERED: Naloxone 0.4 MG/ML INJ IVP PRN (20:17)
[2017-02-19] MEDS ORDERED: Ipratropium/Albuterol Neb 3 ML IH PRN (20:21)
--- NOTE | 2017-02-19 20:28 | Internal Med History&Physical ---
Date of Encounter: 02/19/17 Time of Encounter: 20:25 Assessment and Plan (1) Acute exacerbation of chronic obstructive pulmonary disease Current visit: No Status: Acute IV steroids, duonebs - through CPAP, CPAP overnight, IV azithromycin She tells me that due to her tracheomalacia, she is unable to tolerated nebs through the regular method and has to get it through the CPAP device Send resp viral panel CXR wnl and V/Q scan in the ED with low probability (2) COPD, very severe Current visit: No Status: Chronic therapy as above (3) Tracheomalacia Current visit: Yes Status: Acute expectant management Internal Medicine - H&P: HPI Chief complaint: SOB Admitted From: Home History of present illness: Ms. Blackburn is a 71 year old female with acute on chronic shortness of breath consistent with COPD exacerbation. At baseline she uses 2 L oxygen on and off but more but mostly on ambulation. She has been diagnosed with severe emphysema and had quit smoking approximately 5 years ago. She has a history of tracheomalacia and bronchomalacia previously seen a [facility] and is on nocturnal CPAP device. Tells me that her lung doctor is Dr. Oleary and is casual to see a sleep doctor Dr Merritt" for further continuation on CPAP device. She has been having increased work of breathing, shortness of breath in the last couple months but experienced acute exacerbation today with increased shortness of breath on ambulation, worse with exertion and better with rest. She also reported increased nonproductive cough that is associated with postnasal drainage. In particular she has reported that she does not tolerate nebulizer to the conventional route due to her broncho-tracheomalacia and gets through the CPAP device. XR/XR chest 1V portable IMPRESSION: No acute process. EXAMINATION: NUCLEAR MEDICINE VENTILATION PERFUSION SCAN. 02/19/2017 TECHNIQUE: 35.5 millicuries aerosolized Tc99m DTPA was administered via mask prior to planar imaging of the lungs in multiple projections. Then, 5.7 millicuries of Tc 99m MAA was administered intravenously prior to planar imaging of the lungs in similar projections. COMPARISON: Chest radiograph 02/19/2017. HISTORY: ORDERING SYSTEM PROVIDED HISTORY: dyspnea; tachycardia Additional tech notes: [employer] TECH DEVIN AWARE@1745 FINDINGS: PERFUSION: Distribution of radiotracer is mildly heterogeneous. No segmental defects identified. VENTILATION: There is marked heterogeneity within the ventilation CHEST RADIOGRAPH: No focal areas of consolidation or significant effusions on recent chest radiograph. NM/NM pul vent and perfuse IMPRESSION: Low Probability for Pulmonary Embolus. Past Med Surg Social Fam HX - Past Medical History Medical history: asthma, cancer, cardiomyopathy, CHF, COPD, coronary artery disease, GERD, hyperlipidemia, myocardial infarction, pulmonary embolus, other Psychiatric history: anxiety, depression - Past Surgical History Surgical History: angioplasty/stent, cancer surgery, cataract, cholecystectomy, sinus surgery - Social History Smoking Status: Former smoker Smokeless Tobacco Status: No Alcohol use: none Drug use: none - Family History Son Living Status: Still Living Hx Family GI Disorders: Yes Hx Family Neurologic Disorders: Yes (depression) Mother Living Status: Hx Family Cancer: Yes (Uterine) Sister Living Status: Still Living Hx Family Cardiac Disorders: Yes (Cerebrovascular accident) Hx Family Respiratory Disorders: No Hx Family Cancer: No Hx Family GI Disorders: No Hx Family Endocrine Disorder: No Hx Family Neuromuscular Disorders: No Hx Family Neurologic Disorders: No Hx Family HEENT Disorders: No Hx Family Autoimmune Disorders: No Daughter Living Status: Still Living Hx Family Cardiac Disorders: Yes ([place], [place]) Hx Family Respiratory Disorders: Yes (COPD) Hx Family Cancer: No Hx Family GI Disorders: No Hx Family Endocrine Disorder: No Hx Family Neuromuscular Disorders: No Hx Family Neurologic Disorders: No Hx Family HEENT Disorders: No Hx Family Autoimmune Disorders: No Brother Family Member Ethnicity: Non- Living Status: Still Living Hx Family Cardiac Disorders: Yes (Coronary artery disease) Hx Family Respiratory Disorders: No Hx Family Cancer: No Hx Family GI Disorders: No Hx Family Endocrine Disorder: Yes (TYPE 2 DIABETES MELLITUS) Hx Family Neuromuscular Disorders: No Hx Family Neurologic Disorders: No Hx Family HEENT Disorders: No Hx Family Autoimmune Disorders: No Father Living Status: Hx Family Cardiac Disorders: Yes (Coronary artery disease) Hx Family Respiratory Disorders: No Hx Family Cancer: Yes (Bladder) Hx Family GI Disorders: No Hx Family Endocrine Disorder: No Hx Family Neuromuscular Disorders: No Hx Family Neurologic Disorders: No Hx Family HEENT Disorders: No Hx Family Autoimmune Disorders: No Internal Medicine - H&P: Meds Oxygen 2.5 l NS AD 05/17/15 [History] Nitroglycerin [Nitrostat] 0.4 mg SL Q5M PRN 11/22/15 [History] Acetaminophen [Tylenol] 1,000 mg PO Q6HR PRN 12/20/15 [History] ALPRAZolam [Xanax 0.25 MG Tablet] 0.25 mg PO TID PRN 01/04/16 [History] Albuterol Neb [Proventil Neb] 2.5 mg IH QID 01/04/16 [History] Tiotropium [Spiriva] 18 mcg IH 0800 01/04/16 [History] HYDROcodone/Acet 5/325 mg [[place] 5-325 mg] 1 tab PO TID PRN 02/26/16 [History] Ondansetron ODT [Zofran ODT] 4 mg SL Q8HR PRN 02/26/16 [History] Bisacodyl [Dulcolax] 10 mg RC DAILY PRN 05/03/16 [History] Fluticasone Propionate Nasal [Flonase] 1 spr NS HS 05/03/16 [History] Metoprolol [Lopressor] 12.5 mg PO BID 05/03/16 [History] Albuterol Sulfate [Proair Hfa] 2 puff IH Q4H PRN 11/17/16 [History] Aspirin [Lo-Dose Aspirin EC] 81 mg PO DAILY 11/17/16 [History] Diclofenac Sodium [Voltaren] 1 appl TP QID PRN 11/17/16 [History] Lactulose 20 gm PO DAILY PRN 11/17/16 [History] Mv,Fe,Min/Lutein [A Thru Z Select Women's Tablet] 1 tab PO DAILY 11/17/16 [ History] Polyethylene Glycol 3350 [MiraLAX] 17 gm PO DAILY PRN 11/17/16 [History] Omeprazole [PriLOSEC] 20 mg PO BID #60 11/19/16 [Rx] ALPRAZolam [Xanax 0.5 MG Tablet] 0.5 mg PO HS 12/26/16 [History] Simethicone [Gas-X] 80 mg PO QID PRN 12/26/16 [History] Syringe W-Needle,Disposab,1 ml [Allergy Syringe] 1 each IJ QWEEK 12/26/16 [ History] Calcium Carbonate [Tums] 1,000 mg PO Q4HR PRN #120 tab 12/31/16 [Rx] Guaifenesin [Mucinex] 600 mg PO Q12H PRN 02/19/17 [History] Sennosides [Senna] 8.6 mg PO HS PRN 02/19/17 [History] 3 Allergy/AdvReac Type Severity Reaction Status Date / Time acetylcysteine Allergy Severe Anaphylaxis Verified 02/26/16 09:32 Iodinated Contrast- Oral and Allergy See Verified 02/26/16 09:32 IV Dye Comments [Iodinated Contrast Media - IV Dye] ramelteon [From Rozerem] Allergy Difficulty Verified 02/26/16 09:32 Breathing Amoxicillin [From Augmentin] AdvReac Intermediate Nausea Verified 02/26/16 09:32 azithromycin [From Zithromax] AdvReac Intermediate Nausea Verified 02/26/16 09: 32 clavulanic acid AdvReac Intermediate Nausea Verified 02/26/16 09:32 [From Augmentin] dexlansoprazole AdvReac Mild Headache Verified 02/26/16 09:32 [From Dexilant] prednisone AdvReac Mild See Verified 02/26/16 09:32 Comments sertraline [From Zoloft] AdvReac Mild Depression Verified 02/26/16 09:32 Tetracycline AdvReac Mild Nausea Verified 02/26/16 09:32 Varenicline [From Chantix] AdvReac Mild Nightmare Verified 02/26/16 09:32 All Systems PM: A 10-system review of systems was performed and is negative for pertinent findings except as documented above in the HPI. Review of systems: ROS 14 point review of systems reviewed as best as possible given presentation. Pertinent positive or negative as per HPI or otherwise reviewed as negative - Constitutional Vitals: Temp Pulse Resp BP Pulse Ox 97.4 F L 138 18 135/65 98 02/19/17 20:12 02/19/17 20:12 02/19/17 20:12 02/19/17 20:12 02/19/17 20:12 Exam: General - AAO x 3 Psych - Appropriate affect/speech. No agitation Eyes - ALEKSANDRA. Eye lids intact. No scleral icterus Neuro - No gross peripheral or central neuro deficits with intact CN 2-12 exam on inspection Heart - Sinus. RRR. S1 and S2 present. No added HS/murmurs appreciated. No elevated JVD appreciated. Lung - decrease air entry b/l, scant wheeze, bibasal crackles appreciated GI - Soft, non-tender. No hepatosplenomegaly/ascites. BS+ - No CVA/suprapubic tenderness or palpable bladder distension Skin - Intact. No rash/petechiae/ecchymosis. Warm extremities Internal Med - H&P Results - Labs CBC & Chem 7: 02/19/17 16:13 02/19/17 16:13 - Impressions ITS Impressions Pulmonary Perfusion Imaging 02/19/17 19:36 IMPRESSION: Low Probability for Pulmonary Embolus. D/ / Jerome Mane MD / Jerome Mane MD Interpreting Provider: Jerome Mane MD
[2017-02-19] MEDS ORDERED: NON-FORMULARY MEDICATION 1 EACH EACH (Oxygen [Oxygen] 2.5 L) NS SCH (20:30)
[2017-02-19] MEDS: Azithromycin 500 MG in D5% in Water 250 ML IVPB SCH (21:24)
[2017-02-19] MEDS: ALPRAZolam 0.5 MG TABLET PO SCH (21:24)
[2017-02-19] MEDS ORDERED: Ipratropium/Albuterol Neb 3 ML IH SCH (22:00)
[2017-02-19] MEDS: Budesonide/Formoterol 160/4.5 MDI IH SCH (23:03)
[2017-02-19] MEDS: Ipratropium/Albuterol Neb 3 ML IH SCH ×2 (23:03→23:28)
[2017-02-19 23:05] LABS: Adenovirus Not Detected (Not Detect); Bordetella Pertussis Not Detected (Not Detect); Chlamydophila pneumoniae Not Detected (Not Detect); Coronavirus 229E Not Detected (Not Detect); Coronavirus HKU1 Not Detected (Not Detect); Coronavirus NL63 Not Detected (Not Detect); Coronavirus OC43 Not Detected (Not Detect); Human Metapneumovirus Not Detected (Not Detect); Human Rhinovirus/Enterovirus Not Detected (Not Detect); Influenza A Subtype 2009 H1 Not Detected (Not Detect); Influenza A Untypeable Not Detected (Not Detect); Influenza B Not Detected (Not Detect); Mycoplasma pneumoniae Not Detected (Not Detect); Parainfluenza Virus 1 Not Detected (Not Detect); Parainfluenza Virus 2 Not Detected (Not Detect); Parainfluenza Virus 3 Not Detected (Not Detect); Parainfluenza Virus 4 Not Detected (Not Detect); Respiratory Syncytial Virus Not Detected (Not Detect)
[2017-02-20] MEDS: MethylPREDNISolone 40 MG/ML VIAL IVP SCH ×5 (00:08→23:39)
[2017-02-20] MEDS: Fluticasone Propionate Nasal 50 MCG/SPRAY BOTTLE NS SCH ×2 (00:09→20:08)
[2017-02-20] MEDS ORDERED: *HR* Enoxaparin 30 MG/0.3 ML SYRINGE SQ SCH (06:00)
[2017-02-20] MEDS ORDERED: Tiotropium 18 MCG inhalation IH SCH (08:00)
[2017-02-20] MEDS: Budesonide/Formoterol 160/4.5 MDI IH SCH ×2 (08:17→19:50)
[2017-02-20] MEDS ORDERED: *HR* HYDROcodone/Acet 5/325 mg TABLET PO PRN (08:31)
[2017-02-20] MEDS: Aspirin Enteric Coated 81 MG Tablet PO SCH (08:46)
[2017-02-20] MEDS: Multivit/Ca/Min/Fe/FA 1 TAB TABLET PO SCH (08:46)
--- NOTE | 2017-02-20 10:08 | Internal Med Progress Note ---
Date of Encounter: 02/20/17 Time of Encounter: 09:10 - Assessment and plan (1) Acute exacerbation of chronic obstructive pulmonary disease Current Visit: Yes Status: Acute Assessment and plan: Patient is well-known to our service with multiple previous similar admissions. She has extensive chronic history of advanced COPD, tracheobronchomalacia, GERD, dyspepsia. Continue scheduled bronchodilators, supplemental oxygen as needed, IV azithromycin and IV steroids, tapered down as tolerated. PO Mucinex. Patient has been recently prescribed CPAP by [facility]. Continue nocturnal CPAP. Follows with pulmonology as outpatient. (2) Bronchomalacia, acquired Current Visit: Yes Status: Chronic (3) Chronic respiratory failure Current Visit: Yes Status: Chronic Assessment and plan: Due to underlying COPD, tracheobronchomalacia. Continue supplemental oxygen. Qualifiers: Respiratory failure complication: hypoxia Qualified Code(s): J96.11 - Chronic respiratory failure with hypoxia (4) Vocal cord dysfunction Current Visit: Yes Status: Chronic (5) GERD (gastroesophageal reflux disease) Current Visit: Yes Status: Chronic Assessment and plan: Continue PPI. Qualifiers: Esophagitis presence: esophagitis presence not specified Qualified Code(s) : K21.9 - Gastro-esophageal reflux disease without esophagitis (6) Coronary artery disease Current Visit: Yes Status: Chronic Qualifiers: Coronary Disease-Associated Artery/Lesion type: [place] artery [place] vs. transplanted heart: [place] heart Associated angina: without angina Qualified Code(s): I25.10 - Atherosclerotic heart disease of [place] coronary artery without angina pectoris (7) Tracheomalacia Current Visit: Yes Status: Chronic - Subjective Interval history: Feels better; had shortness of breath and difficulty taking deep breaths yesterday; was prescribed autoPAP recently by [facility] and can only take breathing treatments through CPAP now. - Constitutional Vitals: Temp Pulse Resp BP Pulse Ox 98.0 F 95 20 129/81 94 02/20/17 07:04 02/20/17 07:04 02/20/17 08:17 02/20/17 07:04 02/20/17 08:17 General appearance: Present: A&O X 3, answers questions appropriately - Respiratory Respiratory exam: Present: decreased breath sounds (B/L decreased air entry). Absent: accessory muscle use, rales, rhonchi, wheezes - Cardiovascular Cardiovascular exam: Present: RRR, +S1, +S2. Absent: diastolic murmur, gallop, rubs, systolic murmur - GI/Abdominal GI/Abdominal exam: Present: normal bowel sounds, soft, no peritoneal signs. Absent: distended, tenderness - Extremities Exam Extremities exam: Present: full ROM, warm, radial pulses palpable and symmetrical. Absent: calf tenderness, cyanotic, pedal edema - Neurological Exam Neurological exam: Present: CN II-XII intact, oriented X3, no focal deficits. Absent: pronater drift, facial droop, speech deficit Internal Medicine: Result - Labs CBC & Chem 7: 02/19/17 16:13 02/19/17 16:13 Consult Discharge Plan - Plan Referrals: Paula Casiano PATIENT [facility] [Primary Care Provider] - (WEB REQUEST SENT ON 02/20/17 )
[2017-02-20] MEDS: Albuterol 2.5 MG/3 ML NEBULIZER IH SCH ×2 (11:08→15:54)
[2017-02-20] MEDS ORDERED: Ipratropium/Albuterol Neb 3 ML IH SCH (12:00)
[2017-02-20] MEDS: Simethicone 80 MG TAB.CHEW PO PRN (18:44)
[2017-02-20] MEDS: Ipratropium 1 PUFF INHALER IH SCH ×2 (19:51→23:18)
[2017-02-20] MEDS: Azithromycin 500 MG in D5% in Water 250 ML IVPB SCH (20:08)
[2017-02-20] MEDS: ALPRAZolam 0.5 MG TABLET PO SCH (21:45)
[2017-02-21] MEDS: Ipratropium 1 PUFF INHALER IH SCH ×5 (03:44→19:58)
[2017-02-21] MEDS: MethylPREDNISolone 40 MG/ML VIAL IVP SCH ×4 (05:22→23:49)
[2017-02-21] MEDS: *HR* Enoxaparin 40 MG/0.4 ML SYRINGE SQ SCH (05:22)
[2017-02-21] MEDS: Budesonide/Formoterol 160/4.5 MDI IH SCH ×2 (08:03→19:57)
[2017-02-21] MEDS: Aspirin Enteric Coated 81 MG Tablet PO SCH (08:32)
[2017-02-21] MEDS: Multivit/Ca/Min/Fe/FA 1 TAB TABLET PO SCH (08:32)
[2017-02-21] MEDS ORDERED: Tiotropium 18 MCG inhalation IH SCH (10:00)
[2017-02-21] MEDS: Fluticasone Propionate Nasal 50 MCG/SPRAY BOTTLE NS SCH ×2 (11:17→21:40)
[2017-02-21] MEDS: Cefepime HCl 2,000 MG in Water for inj. (sterile) 20 ML IVP SCH ×2 (15:37→23:49)
[2017-02-21] MEDS: MetroNIDAZOLE 500 MG/100 ML 500 MG/100 ML BAG IVPB SCH ×2 (15:38→23:49)
--- NOTE | 2017-02-21 15:38 | Internal Med Progress Note ---
Date of Encounter: 02/21/17 Time of Encounter: 11:00 - Assessment and plan (1) Physical deconditioning Current Visit: Yes Status: Acute (2) Acute exacerbation of chronic obstructive pulmonary disease Current Visit: Yes Status: Acute Assessment and plan: Patient had leukocytosis which is 2000 above baseline. We will add coverage for gram negatives add cefepime and Flagyl to cover anaerobic, add Mucinex twice daily consider chest physiotherapy. (3) Chronic respiratory failure Current Visit: Yes Status: Chronic Assessment and plan: Counseling on deep breathing and incentive spirometry Qualifiers: Respiratory failure complication: hypoxia Qualified Code(s): J96.11 - Chronic respiratory failure with hypoxia (4) Vocal cord dysfunction Current Visit: Yes Status: Chronic (5) Constipation - functional Current Visit: No Status: Chronic Assessment and plan: Titrate laxative - Time Spent With Patient 25 - 35 minutes - Subjective Interval history: Patient complaining of dry cough worsening of shortness of breath - Constitutional Vitals: Temp Pulse Resp BP Pulse Ox 98.7 F 90 18 132/80 97 02/21/17 10:22 02/21/17 10:22 02/21/17 11:14 02/21/17 10:22 02/21/17 11:14 General appearance: Present: A&O X 3, answers questions appropriately - Head Head exam: Present: atraumatic, normocephalic - Neck Neck exam general surgery: Present: supple, trachea midline. Absent: lymphadenopathy - Respiratory Respiratory exam: Present: accessory muscle use, decreased breath sounds, CTAB, rales, respiratory distress, wheezes. Absent: rhonchi - Cardiovascular Cardiovascular exam: Present: RRR, +S1, +S2. Absent: diastolic murmur, gallop, rubs, systolic murmur - GI/Abdominal GI/Abdominal exam: Present: normal bowel sounds, soft, no peritoneal signs. Absent: distended, tenderness - Extremities Exam Extremities exam: Present: warm, radial pulses palpable and symmetrical. Absent : calf tenderness, cyanotic, pedal edema Internal Medicine: Result - Labs CBC & Chem 7: 02/19/17 16:13 02/19/17 16:13 Consult Discharge Plan - Plan Referrals: Paula Casiano CNP [Primary Care Provider] - 02/26/17 10:15 am ()
[2017-02-21] MEDS: Simethicone 80 MG TAB.CHEW PO PRN ×2 (15:39→20:14)
[2017-02-21] MEDS ORDERED: Cefepime HCl 2,000 MG in D5% in Water 100 ML IVP SCH (16:00)
[2017-02-21] MEDS ORDERED: Piperacillin/Tazobactam 3.375 GM in D5% in Water (Mini-Bag+) 100 ML IVPB SCH (16:00)
[2017-02-21] MEDS ORDERED: Thiamine (B-1) 100 MG in D5% in Water 50 ML IVPB ONE (18:34)
[2017-02-21] MEDS ORDERED: Thiamine (B-1) 100 MG TABLET PO SCH (18:45)
[2017-02-21] MEDS: ALPRAZolam 0.5 MG TABLET PO SCH (21:41)
[2017-02-22] MEDS: Ipratropium 1 PUFF INHALER IH SCH ×6 (00:16→20:53)
[2017-02-22 04:38] LABS: Basophils % 0.1 %; Hematocrit 38.5 % (35.3-44.9); Immature Granulocytes % 0.7 % (0-4); Lymphocytes # 0.4 K/mcL (0.6-4.6); Lymphocytes % 2.8 %; Mean Corpuscular HGB Conc 33.8 g/dL (31.6-35.5); Mean Corpuscular Hemoglobin 30.6 pg (28.0-33.3); Mean Corpuscular Volume 90.6 fL (83.0-100.0); Mean Platelet Volume 8.7 fL (9.4-12.4); Monocytes # 0.5 K/mcL (0.0-1.3); Monocytes % 3.3 %; Neutrophils # 13.5 K/mcL (1.6-8.9); Platelet Count 380 K/mcL (140-400); Red Blood Count 4.25 M/mcL (3.82-4.97); Red Cell Distribution Width 13.7 % (11.5-14.5); Segmented Neutrophils % 93.1 %
[2017-02-22 04:56] LABS: BUN/Creatinine Ratio 26 (6-26); Blood Urea Nitrogen 17 mg/dL (7-20); Calcium 9.3 mg/dL (8.6-10.8); Carbon Dioxide 30 mEq/L (19-29); Chloride 102 mEq/L (98-109); Glucose 148 mg/dL (70-99); Magnesium 2.1 mg/dL (1.6-2.6); Osmolality,Calculated 290 (280-300); Phosphorous 2.6 mg/dL (2.3-4.7); Potassium 4.5 mEq/L (3.5-4.5); Sodium 138 mEq/L (136-145); eGFR For African Americans > 60 (> 60); eGFR For Non-African Americans > 60 (> 60)
[2017-02-22] MEDS: MethylPREDNISolone 40 MG/ML VIAL IVP SCH ×3 (06:39→17:15)
[2017-02-22] MEDS: *HR* Enoxaparin 40 MG/0.4 ML SYRINGE SQ SCH (06:39)
[2017-02-22] MEDS: Budesonide/Formoterol 160/4.5 MDI IH SCH ×2 (07:54→20:48)
[2017-02-22] MEDS: Aspirin Enteric Coated 81 MG Tablet PO SCH (09:01)
[2017-02-22] MEDS: Multivit/Ca/Min/Fe/FA 1 TAB TABLET PO SCH (09:01)
[2017-02-22] MEDS: Thiamine (B-1) 100 MG TABLET PO SCH (09:01)
[2017-02-22] MEDS: MetroNIDAZOLE 500 MG/100 ML 500 MG/100 ML BAG IVPB SCH ×3 (09:03→23:41)
[2017-02-22] MEDS: Fluticasone Propionate Nasal 50 MCG/SPRAY BOTTLE NS SCH ×2 (09:12→21:20)
[2017-02-22] MEDS: Cefepime HCl 2,000 MG in Water for inj. (sterile) 20 ML IVP SCH ×3 (09:14→23:41)
--- NOTE | 2017-02-22 11:29 | Electrocardiograph Report ---
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
--- NOTE | 2017-02-22 15:16 | Internal Med Progress Note ---
Date of Encounter: 02/22/17 Time of Encounter: 15:14 - Assessment and plan (1) Physical deconditioning Current Visit: Yes Status: Acute (2) Acute exacerbation of chronic obstructive pulmonary disease Current Visit: Yes Status: Acute (3) Chronic respiratory failure Current Visit: Yes Status: Chronic Qualifiers: Respiratory failure complication: hypoxia Qualified Code(s): J96.11 - Chronic respiratory failure with hypoxia (4) Vocal cord dysfunction Current Visit: Yes Status: Chronic (5) Constipation - functional Current Visit: No Status: Chronic (6) Oral thrush Current Visit: Yes Status: Acute - Time Spent With Patient With worsening patient pneumonia and having oral thrush and history of oral and throat fungal infection, add Diflucan, nystatin mouthwash, cutback on his steroid. Counseling patient about nutrition. Check chest x-ray. Add Cardizem for rate control. May cutback on beta carolynn with her lung condition, currently patient on 2 L satting 98% with cutback oxygen to 1 L. Counseling patient about oxygenation risk and benefit. Titrate up laxative. Ambulate. With her anxiety malnutrition and decreased sleep add SSRI cut back on benzodiazepines . 25 - 35 minutes - Subjective Interval history: Patient complains of oral thrush. Continue to have shortness of breath. Dyspnea on mild exertion - Constitutional Vitals: Temp Pulse Resp BP Pulse Ox 98.3 F 91 16 149/89 96 02/22/17 10:35 02/22/17 10:35 02/22/17 11:30 02/22/17 10:35 02/22/17 11:30 General appearance: Present: mild distress, A&O X 3, answers questions appropriately - Head Head exam: Present: atraumatic, normocephalic Additional comments: minor oral thrush - Neck Neck exam general surgery: Present: supple, trachea midline. Absent: lymphadenopathy - Respiratory Respiratory exam: Present: decreased breath sounds, prolonged expiratory phase. Absent: accessory muscle use, rales, rhonchi, wheezes - Cardiovascular Cardiovascular exam: Present: RRR, +S1, +S2, systolic murmur. Absent: diastolic murmur, rubs - GI/Abdominal GI/Abdominal exam: Present: normal bowel sounds, soft, no peritoneal signs. Absent: distended, tenderness - Extremities Exam Extremities exam: Present: warm, radial pulses palpable and symmetrical. Absent : calf tenderness, cyanotic, pedal edema Internal Medicine: Result - Labs CBC & Chem 7: 02/22/17 03:19 02/22/17 03:19 Labs: Short CBC 02/22/17 Range/Units 03:19 WBC 14.4 H (4.3-11.1) K/mcL Hgb 13.0 D (11.5-15.4) g/dL Hct 38.5 (35.3-44.9) % Plt Count 380 (140-400) K/mcL Neutrophils # 13.5 H (1.6-8.9) K/mcL BMP 02/22/17 03:19 Sodium 138 Potassium 4.5 Chloride 102 Carbon Dioxide 30 H BUN 17 Creatinine 0.66 Glucose 148 H Calcium 9.3 Liver Function 02/22/17 Range/Units 03:19 Albumin 3.0 L (3.5-5.0) g/dL Consult Discharge Plan - Plan Referrals: Paula Casiano CNP [Primary Care Provider] - 02/26/17 10:15 am ()
[2017-02-22] MEDS: Nystatin SUSP 5 ML UD.LIQ PO SCH ×2 (16:11→21:09)
[2017-02-22] MEDS: Fluconazole 200 MG/100 ML 200 MG/100 ML BAG IVPB SCH (16:12)
[2017-02-22] MEDS: ALPRAZolam 0.25 MG TABLET PO PRN (18:21)
[2017-02-22] MEDS: Sennosides 8.6 MG TABLET PO SCH (21:12)
[2017-02-22] MEDS: Mirtazapine 15 MG TABLET PO SCH (21:18)
[2017-02-22] MEDS: Simethicone 80 MG TAB.CHEW PO PRN (21:18)
[2017-02-22] MEDS: ALPRAZolam 0.5 MG TABLET PO SCH (21:20)
[2017-02-23] MEDS: Ipratropium 1 PUFF INHALER IH SCH ×6 (00:01→20:26)
[2017-02-23] MEDS: *HR* Enoxaparin 40 MG/0.4 ML SYRINGE SQ SCH (06:19)
[2017-02-23] MEDS: MethylPREDNISolone 40 MG/ML VIAL IVP SCH ×2 (06:19→17:41)
[2017-02-23] MEDS: Budesonide/Formoterol 160/4.5 MDI IH SCH ×2 (08:03→20:25)
[2017-02-23] MEDS: Nystatin SUSP 5 ML UD.LIQ PO SCH ×4 (08:44→20:56)
[2017-02-23] MEDS: Multivit/Ca/Min/Fe/FA 1 TAB TABLET PO SCH (08:46)
[2017-02-23] MEDS: Thiamine (B-1) 100 MG TABLET PO SCH (08:46)
[2017-02-23] MEDS: Sennosides 8.6 MG TABLET PO SCH ×2 (08:47→21:02)
[2017-02-23] MEDS: Aspirin Enteric Coated 81 MG Tablet PO SCH (08:47)
[2017-02-23 08:53] LABS: Basophils % 0.1 %; Hematocrit 44.4 % (35.3-44.9); Immature Granulocytes % 0.7 % (0-4); Lymphocytes # 0.6 K/mcL (0.6-4.6); Mean Corpuscular HGB Conc 33.3 g/dL (31.6-35.5); Mean Corpuscular Hemoglobin 30.5 pg (28.0-33.3); Mean Corpuscular Volume 91.5 fL (83.0-100.0); Mean Platelet Volume 8.5 fL (9.4-12.4); Monocytes # 0.9 K/mcL (0.0-1.3); Monocytes % 7.5 %; Neutrophils # 10.6 K/mcL (1.6-8.9); Platelet Count 406 K/mcL (140-400); Red Blood Count 4.85 M/mcL (3.82-4.97); Red Cell Distribution Width 13.9 % (11.5-14.5); Segmented Neutrophils % 86.7 %
[2017-02-23] MEDS: Cefepime HCl 2,000 MG in Water for inj. (sterile) 20 ML IVP SCH ×2 (08:58→16:13)
[2017-02-23 09:00] LABS: Hemoglobin 14.8 g/dL (11.5-15.4)
[2017-02-23] MEDS: MetroNIDAZOLE 500 MG/100 ML 500 MG/100 ML BAG IVPB SCH ×2 (09:03→16:19)
[2017-02-23 09:04] LABS: BUN/Creatinine Ratio 26 (6-26); Blood Urea Nitrogen 18 mg/dL (7-20); Calcium 9.7 mg/dL (8.6-10.8); Carbon Dioxide 31 mEq/L (19-29); Chloride 98 mEq/L (98-109); Glucose 115 mg/dL (70-99); Magnesium 2.4 mg/dL (1.6-2.6); Osmolality,Calculated 287 (280-300); Phosphorous 2.9 mg/dL (2.3-4.7); Potassium 4.3 mEq/L (3.5-4.5); Sodium 137 mEq/L (136-145); eGFR For African Americans > 60 (> 60); eGFR For Non-African Americans > 60 (> 60)
[2017-02-23] MEDS: Fluticasone Propionate Nasal 50 MCG/SPRAY BOTTLE NS SCH ×2 (09:09→20:52)
[2017-02-23] MEDS: Simethicone 80 MG TAB.CHEW PO PRN ×2 (14:43→17:44)
[2017-02-23] MEDS: Fluconazole 200 MG/100 ML 200 MG/100 ML BAG IVPB SCH (15:00)
--- NOTE | 2017-02-23 18:49 | Internal Med Progress Note ---
Date of Encounter: 02/23/17 Time of Encounter: 15:00 - Assessment and plan (1) Physical deconditioning Current Visit: Yes Status: Acute (2) Acute exacerbation of chronic obstructive pulmonary disease Current Visit: Yes Status: Acute (3) Chronic respiratory failure Current Visit: Yes Status: Chronic Qualifiers: Respiratory failure complication: hypoxia Qualified Code(s): J96.11 - Chronic respiratory failure with hypoxia (4) Vocal cord dysfunction Current Visit: Yes Status: Chronic (5) Constipation - functional Current Visit: No Status: Chronic (6) Oral thrush Current Visit: Yes Status: Acute (7) Anxiety Current Visit: No Status: Chronic - Time Spent With Patient Continue current antibiotic, agree with patient to start sprivia instead of Atrovent, patient stated that she had some reaction with Atrovent . Leukocytosis trending down, may increase Ativan, may consider adding BuSpar to help with augmentation of SSRI Check CBC next morning, possible discharge to assisted living, wean off oxygen as tolerated, signs of fluid overload, weight gain add 1 dose of Lasix 25 - 35 minutes - Subjective Interval history: Patient stated her shortness of breath is better, oral thrush is improving, feels anxious. Had bowel movement today, lower extremity swelling - Constitutional Vitals: Temp Pulse Resp BP Pulse Ox 97.9 F 86 18 161/91 97 02/23/17 15:23 02/23/17 15:23 02/23/17 16:36 02/23/17 15:23 02/23/17 16:36 General appearance: Present: mild distress, A&O X 3, answers questions appropriately - Head Head exam: Present: atraumatic, normocephalic - Neck Neck exam general surgery: Present: supple, trachea midline. Absent: lymphadenopathy - Respiratory Respiratory exam: Present: decreased breath sounds, prolonged expiratory phase, rales (Bilateral lung bases but markedly improved). Absent: accessory muscle use, rhonchi, wheezes - Cardiovascular Cardiovascular exam: Present: RRR, +S1, +S2. Absent: diastolic murmur, gallop, rubs, systolic murmur - GI/Abdominal GI/Abdominal exam: Present: normal bowel sounds, soft, no peritoneal signs. Absent: distended, tenderness - Extremities Exam Extremities exam: Present: pedal edema (positive 2 ), warm, radial pulses palpable and symmetrical. Absent: calf tenderness, cyanotic Internal Medicine: Result - Labs CBC & Chem 7: 02/23/17 08:31 02/23/17 08:31 Labs: Short CBC 02/23/17 Range/Units 08:31 WBC 12.3 H (4.3-11.1) K/mcL Hgb 14.8 D (11.5-15.4) g/dL Hct 44.4 (35.3-44.9) % Plt Count 406 H (140-400) K/mcL Neutrophils # 10.6 H (1.6-8.9) K/mcL BMP 02/23/17 08:31 Sodium 137 Potassium 4.3 Chloride 98 Carbon Dioxide 31 H BUN 18 Creatinine 0.69 Glucose 115 H Calcium 9.7 Consult Discharge Plan - Plan Referrals: Paula Casiano CNP [Primary Care Provider] - 02/26/17 10:15 am ()
[2017-02-23] MEDS ORDERED: Furosemide 40 MG/4 ML VIAL IVP ONE (19:00)
[2017-02-23] MEDS: Mirtazapine 15 MG TABLET PO SCH (20:53)
[2017-02-23] MEDS: ALPRAZolam 0.5 MG TABLET PO SCH (20:55)
[2017-02-24] MEDS: Cefepime HCl 2,000 MG in Water for inj. (sterile) 20 ML IVP SCH ×2 (00:49→08:02)
[2017-02-24] MEDS: MetroNIDAZOLE 500 MG/100 ML 500 MG/100 ML BAG IVPB SCH ×2 (00:50→08:12)
[2017-02-24] MEDS: ALPRAZolam 0.25 MG TABLET PO PRN ×2 (04:23→15:24)
[2017-02-24 05:36] LABS: Basophils % 0.2 %; Hemoglobin 13.6 g/dL (11.5-15.4); Immature Granulocytes % 1.3 % (0-4); Lymphocytes # 0.6 K/mcL (0.6-4.6); Lymphocytes % 5.5 %; Mean Corpuscular HGB Conc 33.2 g/dL (31.6-35.5); Mean Corpuscular Hemoglobin 30.2 pg (28.0-33.3); Mean Corpuscular Volume 90.9 fL (83.0-100.0); Mean Platelet Volume 8.4 fL (9.4-12.4); Monocytes % 9.6 %; Neutrophils # 8.8 K/mcL (1.6-8.9); Platelet Count 380 K/mcL (140-400); Red Blood Count 4.51 M/mcL (3.82-4.97); Red Cell Distribution Width 13.6 % (11.5-14.5); Segmented Neutrophils % 83.4 %
[2017-02-24 05:48] LABS: BUN/Creatinine Ratio 29 (6-26); Blood Urea Nitrogen 19 mg/dL (7-20); Calcium 9.1 mg/dL (8.6-10.8); Carbon Dioxide 29 mEq/L (19-29); Chloride 101 mEq/L (98-109); Glucose 145 mg/dL (70-99); Osmolality,Calculated 291 (280-300); Potassium 4.4 mEq/L (3.5-4.5); Sodium 138 mEq/L (136-145); eGFR For African Americans > 60 (> 60); eGFR For Non-African Americans > 60 (> 60)
[2017-02-24] MEDS: MethylPREDNISolone 40 MG/ML VIAL IVP SCH (06:18)
[2017-02-24] MEDS: *HR* Enoxaparin 40 MG/0.4 ML SYRINGE SQ SCH (06:18)
[2017-02-24] MEDS: Budesonide/Formoterol 160/4.5 MDI IH SCH (07:53)
[2017-02-24] MEDS: Nystatin SUSP 5 ML UD.LIQ PO SCH ×2 (07:58→14:01)
[2017-02-24] MEDS: Sennosides 8.6 MG TABLET PO SCH (07:59)
[2017-02-24] MEDS: Aspirin Enteric Coated 81 MG Tablet PO SCH (07:59)
[2017-02-24] MEDS: Multivit/Ca/Min/Fe/FA 1 TAB TABLET PO SCH (07:59)
[2017-02-24] MEDS: Thiamine (B-1) 100 MG TABLET PO SCH (07:59)
[2017-02-24] MEDS: Fluticasone Propionate Nasal 50 MCG/SPRAY BOTTLE NS SCH (08:02)
[2017-02-24] MEDS ORDERED: Tiotropium 18 MCG inhalation IH SCH (10:00)
[2017-02-24 11:12] VITALS: BP 145/78
[2017-02-24] MEDS ORDERED: PrednisoLONE Oral Soln 15 MG/5 ML UDC PO SCH (11:45)
--- NOTE | 2017-02-24 14:08 | Discharge Summary ---
Date of Encounter: 02/24/17 Time of Encounter: 13:00 - Discharge Diagnosis (1) Physical deconditioning Priority: Secondary Status: Acute (2) Acute exacerbation of chronic obstructive pulmonary disease Priority: Primary Status: Acute (3) Chronic respiratory failure Priority: Secondary Status: Chronic Qualifiers: Respiratory failure complication: hypoxia Qualified Code(s): J96.11 - Chronic respiratory failure with hypoxia (4) Vocal cord dysfunction Priority: Secondary Status: Chronic (5) Constipation - functional Priority: Secondary Status: Chronic (6) Oral thrush Priority: Secondary Status: Acute (7) Anxiety Priority: Secondary Status: Chronic - Discharge Medications Prescriptions: Cefuroxime Axetil [Cefuroxime] 500 mg PO BID #20 tablet Cyanocobalamin (B-12) [Vitamin B12] 1,000 mcg PO DAILY #90 tablet Docusate Sodium [Colace] 100 mg PO BID #180 capsule Ergocalciferol (VITAMIN D2) [Drisdol (50,000 Unit)] 50,000 unit PO QWEEK #10 capsule Fluconazole [Diflucan] 100 mg PO Q24H #10 tablet Furosemide [Lasix] 20 mg PO DAILY PRN #30 tablet PRN Reason: other metroNIDAZOLE [Flagyl] 500 mg PO TID #21 tablet Mirtazapine [Remeron] 7.5 mg PO HS #90 tablet predniSONE [PredniSONE] See Taper PO DAILY #18 tablet Thiamine (B-1) [Vitamin B-1] 200 mg PO DAILY #180 tablet Home Medications: Nitroglycerin [Nitrostat] 0.4 mg SL Q5M PRN 11/22/15 [History] Acetaminophen [Tylenol] 1,000 mg PO Q6HR PRN 12/20/15 [History] Albuterol Neb [Proventil Neb] 2.5 mg IH QID 01/04/16 [History] Tiotropium [Spiriva] 18 mcg IH 0800 01/04/16 [History] HYDROcodone/Acet 5/325 mg [Durand 5-325 mg] 1 tab PO TID PRN 02/26/16 [History] Ondansetron ODT [Zofran ODT] 4 mg SL Q8HR PRN 02/26/16 [History] Bisacodyl [Dulcolax] 10 mg RC DAILY PRN 05/03/16 [History] Fluticasone Propionate Nasal [Flonase] 1 spr NS HS 05/03/16 [History] Metoprolol [Lopressor] 12.5 mg PO BID 05/03/16 [History] Albuterol Sulfate [Proair Hfa] 2 puff IH Q4H PRN 11/17/16 [History] Aspirin [Lo-Dose Aspirin EC] 81 mg PO DAILY 11/17/16 [History] Diclofenac Sodium [Voltaren] 1 appl TP QID PRN 11/17/16 [History] Lactulose 20 gm PO DAILY PRN 11/17/16 [History] Mv,Fe,Min/Lutein [A Thru Z [employer] Tablet] 1 tab PO DAILY 11/17/16 [ History] Omeprazole [PriLOSEC] 20 mg PO BID #60 11/19/16 [Rx] Simethicone [Gas-X] 125 mg PO TID 12/26/16 [History] Syringe W-Needle,Disposab,1 ml [Allergy Syringe] 1 each IJ QWEEK 12/26/16 [ History] Calcium Carbonate [Tums] 1,000 mg PO Q4HR PRN #120 tab 12/31/16 [Rx] Budesonide/Formoterol 160/4.5 [Symbicort 160/4.5] 2 puff IH BIDR 02/19/17 [ History] Guaifenesin [Mucinex] 600 mg PO Q12H PRN 02/19/17 [History] ALPRAZolam [Xanax 0.25 MG Tablet] 0.25 mg PO DAILY PRN #0 02/24/17 [Rx] Cefuroxime Axetil [Cefuroxime] 500 mg PO BID #20 tablet 02/24/17 [Rx] Cyanocobalamin (B-12) [Vitamin B12] 1,000 mcg PO DAILY #90 tablet 02/24/17 [Rx] Diltiazem [Cardizem] 30 mg PO BID #60 tablet 02/24/17 [Rx] Docusate Sodium [Colace] 100 mg PO BID #180 capsule 02/24/17 [Rx] Ergocalciferol (VITAMIN D2) [Drisdol (50,000 Unit)] 50,000 unit PO QWEEK #10 capsule 02/24/17 [Rx] Fluconazole [Diflucan] 100 mg PO Q24H #10 tablet 02/24/17 [Rx] Furosemide [Lasix] 20 mg PO DAILY PRN #30 tablet 02/24/17 [Rx] Mirtazapine [Remeron] 7.5 mg PO HS #90 tablet 02/24/17 [Rx] Nystatin [Nystatin Suspension] 100,000 unit PO QID #40 oral.susp 02/24/17 [Rx] Oxygen 1.5 l NS AD #0 02/24/17 [Rx] Polyethylene Glycol 3350 [MiraLAX] 17 gm PO BID #180 02/24/17 [Rx] Sennosides [Senna] 8.6 mg PO BID PRN #180 02/24/17 [Rx] Thiamine (B-1) [Vitamin B-1] 200 mg PO DAILY #180 tablet 02/24/17 [Rx] metroNIDAZOLE [Flagyl] 500 mg PO TID #21 tablet 02/24/17 [Rx] predniSONE [PredniSONE] See Taper PO DAILY #18 tablet 02/24/17 [Rx] Allergies/Adverse Reactions: 3 Allergy/AdvReac Type Severity Reaction Status Date / Time acetylcysteine Allergy Severe Anaphylaxis Verified 02/26/16 09:32 Iodinated Contrast- Oral and Allergy See Verified 02/26/16 09:32 IV Dye Comments [Iodinated Contrast Media - IV Dye] ramelteon [From Rozerem] Allergy Difficulty Verified 02/26/16 09:32 Breathing Amoxicillin [From Augmentin] AdvReac Intermediate Nausea Verified 02/26/16 09:32 azithromycin [From Zithromax] AdvReac Intermediate Nausea Verified 02/26/16 09: 32 clavulanic acid AdvReac Intermediate Nausea Verified 02/26/16 09:32 [From Augmentin] dexlansoprazole AdvReac Mild Headache Verified 02/26/16 09:32 [From Dexilant] prednisone AdvReac Mild See Verified 02/26/16 09:32 Comments sertraline [From Zoloft] AdvReac Mild Depression Verified 02/26/16 09:32 Tetracycline AdvReac Mild Nausea Verified 02/26/16 09:32 Varenicline [From Chantix] AdvReac Mild Nightmare Verified 02/26/16 09:32 Date of admission: 02/19/17 23:48 Primary care physician: Paula Casiano, Discharging clinician: Markell Galindo Anticipated date of discharge: 02/24/17 - Patient Status Disposition: Home, Self-Care Condition: Fair Functional capacity at discharge: independent ambulation Overall status at discharge: patient is progressing back to baseline - Discharge Instructions Follow Up With: Paula Casiano CNP [Primary Care Provider] - 02/26/17 10:15 am (Follow-up with pulmonary in 1 week) - Diet and Activity Activity: resume usual activities as tolerated Diet: low fat, low cholesterol, low salt diet Hospital course: Ms. Blackburn is a 71 year old female Ms. Blackburn is a 71 year old female with past medical history of COPD Tracheomalacia, bronchiomalacia and a focal cord dysfunction. Patient came to the hospital with severe shortness of breath associated with worsening of her cough and postnasal drip. Patient was admitted to the hospital, start patient on aerosol treatments steroid continue to monitor the patient during hospitalization , titrated her antibiotic. Patient had oral thrush possible fungal pneumonia. Patient was started Diflucan in addition to nystatin mouthwash. Patient had marked improvement with that. Patient had chronic constipation and laxative was adjusted, I had long discussion with patient counseling about breathing exercise. Patient was so anxious with her decreased oral intake and nutritional status patient placed on Remeron which helped with her anxiety as well as appetite, patient benzodiazepine tapers down. Counseling about the risk and benefit of benzodiazepine, VQ scan was negative , low probability for pulmonary embolism. Patient is currently on beta carolynn, with her severe COPD and chronic lung condition, discussed with patient weaning off beta carolynn and started Cardizem. Family doctor to monitor. Counseling patient about daily weight and Lasix as needed. Possible diastolic dysfunction - Time Spent with Patient Total time spent providing and/or coordinating discharge services: Greater than 30 minutes - Constitutional Vitals: Temp Pulse Resp BP Pulse Ox 98.1 F 77 18 145/78 96 02/24/17 11:10 02/24/17 11:10 02/24/17 11:10 02/24/17 11:10 02/24/17 11:10 General appearance: Present: mild distress, A&O X 3, answers questions appropriately
[2017-02-24] MEDS ORDERED: Fluconazole 100 MG TABLET PO SCH (15:00)
[2017-02-24] MEDS ORDERED: metroNIDAZOLE 500 MG TABLET PO SCH (15:00)
== END 2017-02-24 15:50 | disposition home or self-care (01) | DRG 191 ==
LOC: 2ANU 15:48 → EMEROO 15:48 → 2ANU 19:05 → SUATTDRO 23:48
PROVIDERS: ADMIT Internal Medicine Hematology & Oncology; ATTEND Internal Medicine

== ENCOUNTER 2017-05-23 11:16 | Observation (INO) ==
[2017-05-23] MEDS ORDERED: 0.9 % Sodium Chloride 1,000 ML IVC ONE (11:55)
[2017-05-23] MEDS ORDERED: Dexamethasone 4 MG/ML VIAL IVP ONE (11:56)
[2017-05-23 12:00] LABS: Basophils # 0.1 K/mcL (0.0-0.2); Basophils % 0.6 %; Eosinophils # 0.1 K/mcL (0.0-0.6); Eosinophils % 1.3 %; Hematocrit 40.1 % (35.3-44.9); Hemoglobin 13.5 g/dL (11.5-15.4); Immature Granulocytes % 0.3 % (0-4); Lymphocytes # 1.2 K/mcL (0.6-4.6); Lymphocytes % 15.1 %; Mean Corpuscular HGB Conc 33.7 g/dL (31.6-35.5); Mean Corpuscular Hemoglobin 29.8 pg (28.0-33.3); Mean Corpuscular Volume 88.5 fL (83.0-100.0); Monocytes # 0.7 K/mcL (0.0-1.3); Monocytes % 8.7 %; Neutrophils # 5.9 K/mcL (1.6-8.9); Platelet Count 434 K/mcL (140-400); Red Blood Count 4.53 M/mcL (3.82-4.97); Red Cell Distribution Width 13.5 % (11.5-14.5)
[2017-05-23 12:05] LABS: Prothrombin Time 10.5 Seconds (9.4-12.1)
--- NOTE | 2017-05-23 12:06 | Emergency Department Note ---
Disposition Clinical Impression: Hyponatremia, Acute exacerbation of chronic obstructive airways disease Disposition: Admitted As Inpatient SOB HPI - General Chief Complaint: ED Upper Respiratory Infection Stated Complaint: VERO Time Seen by Provider: 05/23/17 11:31 Source: patient, EMS Limitations: no limitations Nursing Notes Reviewed: Yes Vital Signs Reviewed: Yes - History of Present Illness 71-year-old female, CHF, COPD, CAD, presents plain shortness of breath, history of COPD, vocal cord dysfunction, tracheomalacia, lives alone at assisted living facility, patient is chronically on 3 L that she uses mostly time but sometimes takes off during the day. Patient states that she is mostly action depending commissures oxygen at night. She had worsening shortness of breath, this dyspnea on exertion, difficulty ambulate. Feels that she is unsafe at home, she denies peptic cough or hemoptysis, denies any chest pain at this time. Pt Subjective Complaint: shortness of breath Onset (ago): day(s) Severity: moderate Consistency/Duration: intermittent Worsens with: nothing Known history of: COPD Associated symptoms: Reports: wheezing. Denies: chest pain, pain with inspiration, fever, cough, sputum production, orthopnea, lower extremity pain, parasthesias, palpitations Treatment prior to arrival: oxygen Cough present: Yes - Related Data Home Medications Medication Instructions Recorded Confirmed Nitroglycerin [Nitrostat] 0.4 mg SL Q5M PRN 11/22/15 05/23/17 Acetaminophen [Tylenol] 1,000 mg PO Q6HR PRN 12/20/15 05/23/17 Albuterol Neb [Proventil Neb] 2.5 mg IH QID 01/04/16 05/23/17 Tiotropium [Spiriva] 18 mcg IH 0800 01/04/16 05/23/17 HYDROcodone/Acet 5/325 mg [[place] 1 tab PO TID PRN 02/26/16 05/23/17 5-325 mg] Ondansetron ODT [Zofran ODT] 4 mg SL Q8HR PRN 02/26/16 05/23/17 Fluticasone Propionate Nasal 1 spr NS HS 05/03/16 05/23/17 [Flonase] Metoprolol [Lopressor] 12.5 mg PO BID 05/03/16 05/23/17 Albuterol Sulfate [Proair Hfa] 2 puff IH Q4H PRN 11/17/16 05/23/17 Aspirin [Lo-Dose Aspirin EC] 81 mg PO DAILY 11/17/16 05/23/17 Diclofenac Sodium [Voltaren] 1 appl TP QID PRN 11/17/16 05/23/17 Mv,Fe,Min/Lutein [A Thru Z Select 1 tab PO DAILY 11/17/16 05/23/17 Women's Tablet] Simethicone [Gas-X] 125 mg PO TID 12/26/16 05/23/17 Syringe W-Needle,Disposab,1 ml 1 each IJ QWEEK 12/26/16 05/23/17 [Allergy Syringe] Budesonide/Formoterol 160/4.5 2 puff IH BIDR 02/19/17 05/23/17 [Symbicort 160/4.5] Guaifenesin [Mucinex] 600 mg PO Q12H PRN 02/19/17 05/23/17 Guaifenesin [Tussin] 200 mg PO Q4H PRN 05/23/17 05/23/17 Previous Rx's Medication Instructions Recorded Omeprazole [PriLOSEC] 20 mg PO BID #60 11/19/16 Calcium Carbonate [Tums] 1,000 mg PO Q4HR PRN #120 tab 12/31/16 ALPRAZolam [Xanax 0.25 MG Tablet] 0.25 mg PO DAILY PRN #0 02/24/17 Docusate Sodium [Colace] 100 mg PO BID #180 capsule 02/24/17 Furosemide [Lasix] 20 mg PO DAILY PRN #30 tablet 02/24/17 Oxygen 1.5 l NS AD #0 02/24/17 Polyethylene Glycol 3350 [MiraLAX] 17 gm PO BID #180 02/24/17 Sennosides [Senna] 8.6 mg PO BID PRN #180 02/24/17 Allergies Allergy/AdvReac Type Severity Reaction Status Date / Time acetylcysteine Allergy Severe Anaphylaxis Verified 03/08/17 13:07 Iodinated Contrast- Oral and Allergy See Verified 03/08/17 13:07 IV Dye Comments [Iodinated Contrast Media - IV Dye] ramelteon [From Rozerem] Allergy Difficulty Verified 03/08/17 13:07 Breathing Amoxicillin [From Augmentin] AdvReac Intermediate Nausea Verified 03/08/17 13:07 azithromycin [From Zithromax] AdvReac Intermediate Nausea Verified 03/08/17 13: 07 clavulanic acid AdvReac Intermediate Nausea Verified 03/08/17 13:07 [From Augmentin] dexlansoprazole AdvReac Mild Headache Verified 03/08/17 13:07 [From Dexilant] prednisone AdvReac Mild See Verified 03/08/17 13:07 Comments sertraline [From Zoloft] AdvReac Mild Depression Verified 03/08/17 13:07 Tetracycline AdvReac Mild Nausea Verified 03/08/17 13:07 Varenicline [From Chantix] AdvReac Mild Nightmare Verified 03/08/17 13:07 All systems ED: reviewed and negative except as stated. Review of Systems: As Per HPI Constitutional: Denies: fever, chills Eyes: Denies: eye pain ENT ED: Denies: ear pain Cardiovascular: Denies: chest pain Respiratory: Reports: as per HPI, dyspnea. Denies: cough Gastrointestinal: Denies: abdominal pain Genitourinary: Denies: urgency, dysuria Musculoskeletal: Denies: back pain Integumentary: Denies: rash, abrasion Neurological: Denies: headache Psychiatric: Denies: anxiety Past Medical History - Past Medical History Attestation: Yes The following information was validated with the patient. Source: patient Medical history: Reports: asthma, cancer, cardiomyopathy, CHF, COPD, coronary artery disease, GERD, hyperlipidemia, myocardial infarction, pulmonary embolus, other Surgical history: Reports: angioplasty/stent, cancer surgery, cataract, cholecystectomy, sinus surgery Psychiatric history: Reports: anxiety, depression [employer] WORK[employer] history: Reports: other - Social History Smoking Status: Former smoker Smokeless Tobacco Status: No Alcohol use: Reports: none Drug use: Reports: none Physical Exam Constitutional: 98% on 3 L elderly female in mild respiratory distress Eyes: PERRLA, sclera anicteric ENT & Mouth: MMM Neck: normal inspection, neck is supple Resp: Prolonged respiratory phase, tight with minimal air movement CV: RRR, no m/g/r GI: normal inspection, soft, no guarding or rigidity Neuro: A&O3, CNII-XII grossly intact, VALDOVINOS Skin: on limited exam, skin intact with no rashes or lesions - General Limitations: no limitations General appearance: alert, in no apparent distress Course Course Narrative: Elderly female with history of COPD anxiety, patient states she has had worsening exertional dyspnea for the last week she lives with assisted living and does not have usp in house, she is oxygen dependent mostly time although she takes her oxygen off and was on her chest sometimes drop today. She states this been worse and she has been requiring oxygen throughout the day. COPD workup including CBC BMP lactate basic lab work chest x-ray reassess albuterol treatment and Decadron IV - Reevaluation(s) Reevaluation #1: Reevaluated the patient, she did road test she was only able to walk about 8 feet and she had profound exertional dyspnea, she is unable to cannulate, her oxygen dropped down somewhat into the low 90s but she is not able to tolerate a full road test, and she had to sit back down plan is for admission for COPD exacerbation. Dr Nair accepting Vital Signs Temperature 98.7 F 05/23/17 11:18 Pulse Rate 83 05/23/17 11:18 Respiratory Rate 18 05/23/17 11:18 Blood Pressure 161/84 05/23/17 11:18 O2 Sat by Pulse Oximetry 98 05/23/17 11:18 Temperature 98.7 F 05/23/17 11:18 Pulse Rate 99 05/23/17 15:14 Respiratory Rate 18 05/23/17 15:14 Blood Pressure 174/108 05/23/17 15:14 O2 Sat by Pulse Oximetry 99 05/23/17 15:14 Oxygen Delivery Oxygen Delivery Nasal Cannula Shortness of Breath/Dyspnea - Differential Diagnosis Likely: acute exacerbation of chronic obstructive airways disease, congestive heart failure, pulmonary embolism - Lab Data Lab results reviewed: Yes I reviewed the patient's lab results. Result diagrams: 05/23/17 11:47 05/23/17 11:47 Lab Results 05/23/17 05/23/17 05/23/17 Range/Units 11:47 11:47 11:47 WBC 7.9 (4.3-11.1) K/mcL RBC 4.53 (3.82-4.97) M/mcL Hgb 13.5 (11.5-15.4) g/dL Hct 40.1 (35.3-44.9) % MCV 88.5 (83.0-100.0) fL MCH 29.8 (28.0-33.3) pg MCHC 33.7 (31.6-35.5) g/dL RDW 13.5 (11.5-14.5) % Plt Count 434 H (140-400) K/mcL MPV 8.0 L (9.4-12.4) fL Immature Gran % 0.3 (0-4) % Seg Neutrophils % 74.0 % Lymphocytes % 15.1 % Monocytes % 8.7 % Eosinophils % 1.3 % Basophils % 0.6 % Neutrophils # 5.9 (1.6-8.9) K/mcL Lymphocytes # 1.2 (0.6-4.6) K/mcL Monocytes # 0.7 (0.0-1.3) K/mcL Eosinophils # 0.1 (0.0-0.6) K/mcL Basophils # 0.1 (0.0-0.2) K/mcL PT 10.5 (9.4-12.1) Seconds INR 1.0 APTT 38.2 H (26.0-36.0) Seconds Sodium 128 L (136-145) mEq/L Potassium 4.2 (3.5-5.1) mEq/L Chloride 96 L (98-107) mEq/L Carbon Dioxide 26 (23-29) mEq/L BUN 6 L (8-23) mg/dL Creatinine 0.48 L (0.60-1.20) mg/dL Est GFR ( Amer) > 60 (> 60) Est GFR (Non-Af Amer) > 60 (> 60) BUN/Creatinine Ratio 13 (6-26) Glucose 87 (70-105) mg/dL Calculated Osmolality 263 L (280-300) Lactic Acid (0.5-2.2) mmol/L Calcium 9.2 (8.6-10.3) mg/dL Total Bilirubin 0.3 (0.3-1.0) mg/dL Direct Bilirubin 0.0 (0.0-0.2) mg/dL Indirect Bilirubin 0.3 (0.0-1.2) mg/dL AST 24 (13-39) Units/L ALT 14 (7-52) Units/L Alkaline Phosphatase 87 (34-104) Units/L Troponin I (< 0.04) ng/mL B-Natriuretic Peptide (Less than 100) pg/mL Serum Total Protein 6.3 L (6.4-8.9) g/dL Albumin 3.9 (3.5-5.7) g/dL Globulin 2.4 (2.4-3.5) g/dL Albumin/Globulin Ratio 1.6 (1.1-2.2) Lipase 19 (11-82) Units/L 05/23/17 05/23/17 05/23/17 Range/Units 11:47 11:47 12:30 WBC (4.3-11.1) K/mcL RBC (3.82-4.97) M/mcL Hgb (11.5-15.4) g/dL Hct (35.3-44.9) % MCV (83.0-100.0) fL MCH (28.0-33.3) pg MCHC (31.6-35.5) g/dL RDW (11.5-14.5) % Plt Count (140-400) K/mcL MPV (9.4-12.4) fL Immature Gran % (0-4) % Seg Neutrophils % % Lymphocytes % % Monocytes % % Eosinophils % % Basophils % % Neutrophils # (1.6-8.9) K/mcL Lymphocytes # (0.6-4.6) K/mcL Monocytes # (0.0-1.3) K/mcL Eosinophils # (0.0-0.6) K/mcL Basophils # (0.0-0.2) K/mcL PT (9.4-12.1) Seconds INR APTT (26.0-36.0) Seconds Sodium (136-145) mEq/L Potassium (3.5-5.1) mEq/L Chloride (98-107) mEq/L Carbon Dioxide (23-29) mEq/L BUN (8-23) mg/dL Creatinine (0.60-1.20) mg/dL Est GFR ( Amer) (> 60) Est GFR (Non-Af Amer) (> 60) BUN/Creatinine Ratio (6-26) Glucose (70-105) mg/dL Calculated Osmolality (280-300) Lactic Acid 0.7 (0.5-2.2) mmol/L Calcium (8.6-10.3) mg/dL Total Bilirubin (0.3-1.0) mg/dL Direct Bilirubin (0.0-0.2) mg/dL Indirect Bilirubin (0.0-1.2) mg/dL AST (13-39) Units/L ALT (7-52) Units/L Alkaline Phosphatase (34-104) Units/L Troponin I < 0.03 (< 0.04) ng/mL B-Natriuretic Peptide 119 H (Less than 100) pg/mL Serum Total Protein (6.4-8.9) g/dL Albumin (3.5-5.7) g/dL Globulin (2.4-3.5) g/dL Albumin/Globulin Ratio (1.1-2.2) Lipase (11-82) Units/L - Radiology Data Radiology results reviewed: Yes I reviewed the patient's radiology results. Chest X-Ray 05/23/17 11:23 IMPRESSION: No acute findings D/ / Zaida Flaherty MD / Zaida Flaherty MD Interpreting Provider: Zaida Flaherty MD Abdomen/Pelvis CT 05/23/17 13:35 IMPRESSION: No acute abnormality identified in the abdomen or pelvis. D/ / 05/23/2017 14:30:06 Kerwin Barrientos MD / earisra Interpreting Provider: Kerwin Barrientos MD - EKG Data EKG attestation: Yes I reviewed and interpreted this EKG. EKG shows normal: Reports: sinus rhythm Rate: Reports: normal (77 bpm RI 175 QRS 85 QTC 37 no acute ischemic changes or ST segment elevations or depressions) Attestation Statement - Attestation Attestation: I, Sumit Lowe DO, examined this patient [id number] and my medical decision-making was reviewed with Dr. Bernabe Jones, Resident Physician. I agree with the documented findings, disposition and treatment plan as described except to the extent set forth below. Please see my progress notes for details. 71-year-old female presents emergency room from assisted living facility. Patient has been describing increased work of breathing and exertional dyspnea home. Patient has a history of COPD and uses oxygen as needed at home. Patient denies any trauma or illness. Patient is also been describing some abdominal discomfort and distention. She has had this on and off along time has been persistently getting worse. Physical exam she is well-appearing female. Her lungs appear to be clear. She was initially borderline hypoxic and had some increased work of breathing on initial presentation evaluation. Jugular abdomen soft. Patient moves all 4 extremities without any issue this time. Patient will have detailed evaluation for COPD exacerbation. The treatments and steroids will be given. Patient made clear to be discharged home at the symptoms do get better considering she does not use oxygen all the time. She has not been checking any acute signs of hypoxia to be the treatments were given. Patient is otherwise resting comfortably in the bed. Will determine disposition after workup is completed. See detailed documentation of the physical exam, medical intervention, medical decision- making and disposition in the resident physician's note. 1500 Patient found to be significantly exertionally dyspneic. Patient elected to be admitted the hospital this time. Hospitalist was contacted for admission process and description of the patient not being able to ambulate without having significant shortness of breath was discussed. Patient understands this and as well as the hospitalist. Patient will be admitted this time for definitive management. No critical care provider Dillon patient's course of care.
[2017-05-23 12:08] LABS: Activated Partial Thrombo Time 38.2 Seconds (26.0-36.0)
[2017-05-23 12:15] LABS: BUN/Creatinine Ratio 13 (6-26); Blood Urea Nitrogen 6 mg/dL (8-23); Calcium 9.2 mg/dL (8.6-10.3); Carbon Dioxide 26 mEq/L (23-29); Chloride 96 mEq/L (98-107); Glucose 87 mg/dL (70-105); Osmolality,Calculated 263 (280-300); Potassium 4.2 mEq/L (3.5-5.1); Sodium 128 mEq/L (136-145); eGFR For African Americans > 60 (> 60); eGFR For Non-African Americans > 60 (> 60)
[2017-05-23 14:04] LABS: Albumin 3.9 g/dL (3.5-5.7); Bilirubin,Indirect 0.3 mg/dL (0.0-1.2); Bilirubin,Total 0.3 mg/dL (0.3-1.0)
[2017-05-23 14:10] LABS: Alanine Aminotransferase 14 Units/L (7-52); Albumin/Globulin Ratio 1.6 (1.1-2.2); Alkaline Phosphatase 87 Units/L (34-104); Aspartate Amino Transferase 24 Units/L (13-39); Globulin 2.4 g/dL (2.4-3.5); Lipase 19 Units/L (11-82); Total Protein 6.3 g/dL (6.4-8.9)
[2017-05-23] MEDS ORDERED: *HR* LORazepam 2 MG/ML VIAL IVP ONE (14:45)
--- NOTE | 2017-05-23 16:03 | Internal Med History&Physical ---
Date of Encounter: 05/23/17 Time of Encounter: 15:00 Assessment and Plan (1) Acute exacerbation of chronic obstructive airways disease Current visit: Yes Status: Acute -Patient appears to be at baseline on exam without any appreciable wheezing on auscultation. -She is on her baseline O2 requirements; chest x-ray negative and afebrile without leukocytosis -Patient reports that she is not able to take nebulized treatments or steroids. -Discussed with meat grinder who will see patient on 05/24/17 (2) Tracheobronchomalacia Current visit: No Status: Chronic -She reports of being seen and managed at [facility] -Pulmonology following as above (3) Hyponatremia Current visit: Yes Status: Acute -Patient with sodium of 128 and also appears dehydrated. -Will give gentle normal saline (4) Hypertension Current visit: No Status: Acute -Continue home medications Qualifiers: Hypertension type: essential hypertension Qualified Code(s): I10 - Essential (primary) hypertension (5) CHF (congestive heart failure) Current visit: No Status: Chronic -Stable; continue home medications Qualifiers: Congestive heart failure type: combined Congestive heart failure chronicity : chronic Qualified Code(s): I50.42 - Chronic combined systolic (congestive) and diastolic (congestive) heart failure (6) DVT prophylaxis Current visit: No Status: Acute -Subcutaneous heparin Internal Medicine - H&P: HPI Chief complaint: Shortness of breath Admitted From: Home Plans for Post Hospital Care: Home History of present illness: Patient is a 71-year-old female with past medical history significant for cardiomyopathy, hyperlipidemia, COPD and tracheal bronchial malacia who presented to the ER on 05/23/17 due to shortness of breath with exertion and cough. Patient reports her symptoms have occurred for approximately one week in which she becomes dyspneic with exertion more so than normal. Patient also reports of a nonproductive cough. Patient was concerned and decided to come into the ER for evaluation. Patient does report a history tracheal bronchial malacia and has been seen and treated at the [facility]. Patient reports that because of her condition , she cannot take steroids or nebulizers treatments. In the ER, labs are unremarkable and chest x-ray negative. Discussed patient with meat grinder who is familiar with the patient and will see in the morning. Will resume patients home medications overnight. Past Med Surg Social Fam HX - Past Medical History Medical history: asthma, cancer, cardiomyopathy, CHF, COPD, coronary artery disease, GERD, hyperlipidemia, myocardial infarction, pulmonary embolus, other Psychiatric history: anxiety, depression - Past Surgical History Surgical History: angioplasty/stent, cancer surgery, cataract, cholecystectomy, sinus surgery - Social History Smoking Status: Former smoker Smokeless Tobacco Status: No Alcohol use: none Drug use: none - Family History Son Living Status: Still Living Hx Family GI Disorders: Yes Hx Family Endocrine Disorder: Yes (Type 2 DM) Hx Family Neurologic Disorders: Yes (depression) Mother Living Status: Hx Family Cancer: Yes Sister Living Status: Hx Family Cardiac Disorders: Yes (Cerebrovascular accident) Hx Family Respiratory Disorders: No Hx Family Cancer: No Hx Family GI Disorders: No Hx Family Endocrine Disorder: No Hx Family Neuromuscular Disorders: No Hx Family Neurologic Disorders: No Hx Family HEENT Disorders: No Hx Family Autoimmune Disorders: No Daughter Living Status: Still Living Hx Family Cardiac Disorders: Yes (PE, PA) Hx Family Respiratory Disorders: Yes (Chronic bronchitis) Hx Family Cancer: No Hx Family GI Disorders: No Hx Family Endocrine Disorder: No Hx Family Neuromuscular Disorders: No Hx Family Neurologic Disorders: No Hx Family HEENT Disorders: No Hx Family Autoimmune Disorders: No Brother Family Member Ethnicity: Non- Living Status: Still Living Hx Family Cardiac Disorders: Yes (Coronary artery disease) Hx Family Respiratory Disorders: No Hx Family Cancer: No Hx Family GI Disorders: No Hx Family Endocrine Disorder: Yes (TYPE 2 DIABETES MELLITUS) Hx Family Neuromuscular Disorders: No Hx Family Neurologic Disorders: No Hx Family HEENT Disorders: No Hx Family Autoimmune Disorders: No Father Living Status: Hx Family Cardiac Disorders: Yes (PA) Hx Family Respiratory Disorders: No Hx Family Cancer: Yes Hx Family GI Disorders: No Hx Family Endocrine Disorder: No Hx Family Neuromuscular Disorders: No Hx Family Neurologic Disorders: No Hx Family HEENT Disorders: No Hx Family Autoimmune Disorders: No Internal Medicine - H&P: Meds Nitroglycerin [Nitrostat] 0.4 mg SL Q5M PRN 11/22/15 [History] Acetaminophen [Tylenol] 1,000 mg PO Q6HR PRN 12/20/15 [History] Albuterol Neb [Proventil Neb] 2.5 mg IH QID 01/04/16 [History] Tiotropium [Spiriva] 18 mcg IH 0800 01/04/16 [History] HYDROcodone/Acet 5/325 mg [[place] 5-325 mg] 1 tab PO TID PRN 02/26/16 [History] Ondansetron ODT [Zofran ODT] 4 mg SL Q8HR PRN 02/26/16 [History] Fluticasone Propionate Nasal [Flonase] 1 spr NS HS 05/03/16 [History] Metoprolol [Lopressor] 12.5 mg PO BID 05/03/16 [History] Albuterol Sulfate [Proair Hfa] 2 puff IH Q4H PRN 11/17/16 [History] Aspirin [Lo-Dose Aspirin EC] 81 mg PO DAILY 11/17/16 [History] Diclofenac Sodium [Voltaren] 1 appl TP QID PRN 11/17/16 [History] Mv,Fe,Min/Lutein [A Thru Z Select Women's Tablet] 1 tab PO DAILY 11/17/16 [ History] Omeprazole [PriLOSEC] 20 mg PO BID #60 11/19/16 [Rx] Simethicone [Gas-X] 125 mg PO TID 12/26/16 [History] Syringe W-Needle,Disposab,1 ml [Allergy Syringe] 1 each IJ QWEEK 12/26/16 [ History] Calcium Carbonate [Tums] 1,000 mg PO Q4HR PRN #120 tab 12/31/16 [Rx] Budesonide/Formoterol 160/4.5 [Symbicort 160/4.5] 2 puff IH BIDR 02/19/17 [ History] Guaifenesin [Mucinex] 600 mg PO Q12H PRN 02/19/17 [History] ALPRAZolam [Xanax 0.25 MG Tablet] 0.25 mg PO DAILY PRN #0 02/24/17 [Rx] Docusate Sodium [Colace] 100 mg PO BID #180 capsule 02/24/17 [Rx] Furosemide [Lasix] 20 mg PO DAILY PRN #30 tablet 02/24/17 [Rx] Oxygen 1.5 l NS AD #0 02/24/17 [Rx] Polyethylene Glycol 3350 [MiraLAX] 17 gm PO BID #180 02/24/17 [Rx] Sennosides [Senna] 8.6 mg PO BID PRN #180 02/24/17 [Rx] Guaifenesin [Tussin] 200 mg PO Q4H PRN 05/23/17 [History] 3 Allergy/AdvReac Type Severity Reaction Status Date / Time acetylcysteine Allergy Severe Anaphylaxis Verified 03/08/17 13:07 Iodinated Contrast- Oral and Allergy See Verified 03/08/17 13:07 IV Dye Comments [Iodinated Contrast Media - IV Dye] ramelteon [From Rozerem] Allergy Difficulty Verified 03/08/17 13:07 Breathing Amoxicillin [From Augmentin] AdvReac Intermediate Nausea Verified 03/08/17 13:07 azithromycin [From Zithromax] AdvReac Intermediate Nausea Verified 03/08/17 13: 07 clavulanic acid AdvReac Intermediate Nausea Verified 03/08/17 13:07 [From Augmentin] dexlansoprazole AdvReac Mild Headache Verified 03/08/17 13:07 [From Dexilant] prednisone AdvReac Mild See Verified 03/08/17 13:07 Comments sertraline [From Zoloft] AdvReac Mild Depression Verified 03/08/17 13:07 Tetracycline AdvReac Mild Nausea Verified 03/08/17 13:07 Varenicline [From Chantix] AdvReac Mild Nightmare Verified 03/08/17 13:07 All Systems PM: A 10-system review of systems was performed and is negative for pertinent findings except as documented above in the HPI. - Constitutional Vitals: Temp Pulse Resp BP Pulse Ox 98.7 F 99 18 174/108 99 05/23/17 11:18 05/23/17 15:14 05/23/17 15:14 05/23/17 15:14 05/23/17 15:14 General appearance: Present: A&O X 3, no acute distress, answers questions appropriately - Eye Eye exam: Present: normal appearance - ENT ENT exam: Present: mucous membranes moist - Respiratory Respiratory exam: Present: CTAB. Absent: accessory muscle use, rales, rhonchi, wheezes - Cardiovascular Cardiovascular exam: Present: RRR, +S1, +S2. Absent: diastolic murmur, gallop, rubs, systolic murmur - GI/Abdominal GI/Abdominal exam: Present: normal bowel sounds, soft, no peritoneal signs. Absent: distended, tenderness - Extremities Exam Extremities exam: Absent: pedal edema - Neurological Exam Neurological exam: Present: oriented X3 - Psychiatric Psychiatric exam: Present: normal mood - Skin Skin exam: Present: normal color Internal Med - H&P Results - Labs CBC & Chem 7: 05/23/17 11:47 05/23/17 11:47
[2017-05-23] MEDS ORDERED: Naloxone 0.4 MG/ML INJ IVP PRN (16:54)
[2017-05-23] MEDS ORDERED: 0.9 % Sodium Chloride 1,000 ML IVC SCH (17:15)
[2017-05-23] MEDS ORDERED: GuaiFENesin Liq 200 MG/10 ML UDC PO PRN (17:19)
[2017-05-23] MEDS ORDERED: Nitroglycerin 0.4 MG TAB.SUBL SL PRN (17:19)
[2017-05-23] MEDS ORDERED: (Diclofenac Sodium [Voltaren] 1 APPL) TP PRN (17:19)
[2017-05-23] MEDS ORDERED: Furosemide 20 MG TABLET PO PRN (17:19)
[2017-05-23] MEDS ORDERED: ALPRAZolam 0.25 MG TABLET PO PRN (17:19)
[2017-05-23] MEDS ORDERED: Ondansetron ODT 4 MG TAB.RAPDIS SL PRN (17:19)
[2017-05-23] MEDS: *HR* Heparin 5,000 UNIT/ML VIAL SQ SCH (20:54)
[2017-05-23] MEDS: Fluticasone Propionate Nasal 50 MCG/SPRAY BOTTLE NS SCH (20:58)
[2017-05-23] MEDS ORDERED: Budesonide/Formoterol 160/4.5 MDI IH SCH (22:00)
[2017-05-23] MEDS: ALPRAZolam 0.5 MG TABLET PO SCH (22:17)
[2017-05-24 03:07] LABS: Basophils % 0.2 %; Hematocrit 37.6 % (35.3-44.9); Hemoglobin 12.6 g/dL (11.5-15.4); Immature Granulocytes % 0.2 % (0-4); Lymphocytes # 0.7 K/mcL (0.6-4.6); Lymphocytes % 16.2 %; Mean Corpuscular HGB Conc 33.5 g/dL (31.6-35.5); Mean Corpuscular Hemoglobin 29.3 pg (28.0-33.3); Mean Corpuscular Volume 87.4 fL (83.0-100.0); Mean Platelet Volume 8.3 fL (9.4-12.4); Monocytes # 0.3 K/mcL (0.0-1.3); Monocytes % 7.2 %; Neutrophils # 3.3 K/mcL (1.6-8.9); Platelet Count 404 K/mcL (140-400); Red Cell Distribution Width 13.5 % (11.5-14.5); Segmented Neutrophils % 76.2 %
[2017-05-24 03:28] LABS: BUN/Creatinine Ratio 14 (6-26); Blood Urea Nitrogen 7 mg/dL (8-23); Carbon Dioxide 28 mEq/L (23-29); Chloride 102 mEq/L (98-107); Glucose 112 mg/dL (70-105); Osmolality,Calculated 279 (280-300); Potassium 4.5 mEq/L (3.5-5.1); Sodium 135 mEq/L (136-145); eGFR For African Americans > 60 (> 60); eGFR For Non-African Americans > 60 (> 60)
[2017-05-24] MEDS: *HR* Heparin 5,000 UNIT/ML VIAL SQ SCH ×3 (05:39→21:58)
[2017-05-24] MEDS ORDERED: Budesonide/Formoterol 160/4.5 MDI IH SCH (08:00)
[2017-05-24] MEDS: Tiotropium 18 MCG inhalation IH SCH ×2 (08:10→12:27)
[2017-05-24] MEDS: Aspirin Enteric Coated 81 MG Tablet PO SCH (08:33)
--- NOTE | 2017-05-24 11:33 | Pulmonology Consult Note ---
Date of Encounter: 05/25/17 Time of Encounter: 11:30 Assessment and Plan (1) Sinusitis, acute Current Visit: Yes Status: Acute This has triggered her current shortness of breadth and increased cough will give 7 days of Doxycycline 100mg BID . Qualifiers: Sinusitis location: maxillary Qualified Code(s): J01.00 - Acute maxillary sinusitis, unspecified (2) COPD, very severe Current Visit: No Status: Chronic Patient can tolerate only Albuterol HFA , Symbicort BID , Spiriva her symptoms are at baseline (3) Chronic respiratory failure Current Visit: No Status: Chronic Patient has Chronic respiratory failure with hypoxia she is at her baseline Oxygen Qualifiers: Respiratory failure complication: hypoxia Qualified Code(s): J96.11 - Chronic respiratory failure with hypoxia (4) CHF (congestive heart failure) Current Visit: No Status: Chronic To continue diuresis as tolerated Qualifiers: Congestive heart failure type: combined Congestive heart failure chronicity : chronic Qualified Code(s): I50.42 - Chronic combined systolic (congestive) and diastolic (congestive) heart failure (5) NUBIA (obstructive sleep apnea) Current Visit: Yes Status: Acute NUBIA on APAP 5-20 cm H2O History of Present Illness Consult date: 05/24/17 Requesting physician: Sanjeev Nair Reason for consult: dyspnea, COPD Chief complaint: Shortness of breadth History of present illness: 71 year old female well known to our pulmonary service with past medical history significant for O2 dependent COPD 2 lpm , Diastolic heart failure , NUBIA on CPAP comes with 1 week shortness of breadth had on and off pedal edema , had increased nasal secretions with more post nasal drip and cough says she could not take any of her ellipta inhalers ,patient can tolerate only symbicort and Spiriva cannot tolerate nebulizer , sputum production is slightly increased , denies any chest pain or tightness , denies any palpitations , denies any headache ,denies any focal neurological deficit Patient is admitted for increase shortness of breadth . 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 Past Med Surg Social Fam HX - Past Medical History Medical history: asthma, cancer, cardiomyopathy, CHF, COPD, coronary artery disease, GERD, hyperlipidemia, myocardial infarction, pulmonary embolus, other Psychiatric history: anxiety, depression - Past Surgical History Surgical History: angioplasty/stent, cancer surgery, cataract, cholecystectomy, sinus surgery - Social History Smoking Status: Former smoker Smokeless Tobacco Status: No Alcohol use: none Drug use: none - Family History Son Living Status: Still Living Hx Family GI Disorders: Yes Hx Family Endocrine Disorder: Yes (Type 2 DM) Hx Family Neurologic Disorders: Yes (depression) Mother Living Status: Hx Family Cancer: Yes Sister Living Status: Hx Family Cardiac Disorders: Yes (Cerebrovascular accident) Hx Family Respiratory Disorders: No Hx Family Cancer: No Hx Family GI Disorders: No Hx Family Endocrine Disorder: No Hx Family Neuromuscular Disorders: No Hx Family Neurologic Disorders: No Hx Family HEENT Disorders: No Hx Family Autoimmune Disorders: No Daughter Living Status: Still Living Hx Family Cardiac Disorders: Yes (PE, MA) Hx Family Respiratory Disorders: Yes (Chronic bronchitis) Hx Family Cancer: No Hx Family GI Disorders: No Hx Family Endocrine Disorder: No Hx Family Neuromuscular Disorders: No Hx Family Neurologic Disorders: No Hx Family HEENT Disorders: No Hx Family Autoimmune Disorders: No Brother Family Member Ethnicity: Non- Living Status: Still Living Hx Family Cardiac Disorders: Yes (Coronary artery disease) Hx Family Respiratory Disorders: No Hx Family Cancer: No Hx Family GI Disorders: No Hx Family Endocrine Disorder: Yes (TYPE 2 DIABETES MELLITUS) Hx Family Neuromuscular Disorders: No Hx Family Neurologic Disorders: No Hx Family HEENT Disorders: No Hx Family Autoimmune Disorders: No Father Living Status: Hx Family Cardiac Disorders: Yes (MA) Hx Family Respiratory Disorders: No Hx Family Cancer: Yes Hx Family GI Disorders: No Hx Family Endocrine Disorder: No Hx Family Neuromuscular Disorders: No Hx Family Neurologic Disorders: No Hx Family HEENT Disorders: No Hx Family Autoimmune Disorders: No Medications and Allergies Nitroglycerin [Nitrostat] 0.4 mg SL Q5M PRN 11/22/15 [History] Acetaminophen [Tylenol] 1,000 mg PO Q6HR PRN 12/20/15 [History] Albuterol Neb [Proventil Neb] 2.5 mg IH QID 01/04/16 [History] Tiotropium [Spiriva] 18 mcg IH 0800 01/04/16 [History] HYDROcodone/Acet 5/325 mg [[place] 5-325 mg] 1 tab PO TID PRN 02/26/16 [History] Ondansetron ODT [Zofran ODT] 4 mg SL Q8HR PRN 02/26/16 [History] Fluticasone Propionate Nasal [Flonase] 1 spr NS HS 05/03/16 [History] Metoprolol [Lopressor] 12.5 mg PO BID 05/03/16 [History] Albuterol Sulfate [Proair Hfa] 2 puff IH Q4H PRN 11/17/16 [History] Aspirin [Lo-Dose Aspirin EC] 81 mg PO DAILY 11/17/16 [History] Diclofenac Sodium [Voltaren] 1 appl TP QID PRN 11/17/16 [History] Mv,Fe,Min/Lutein [A Thru Z [employer] Tablet] 1 tab PO DAILY 11/17/16 [ History] Omeprazole [PriLOSEC] 20 mg PO BID #60 11/19/16 [Rx] Simethicone [Gas-X] 125 mg PO TID 12/26/16 [History] Syringe W-Needle,Disposab,1 ml [Allergy Syringe] 1 each IJ QWEEK 12/26/16 [ History] Calcium Carbonate [Tums] 1,000 mg PO Q4HR PRN #120 tab 12/31/16 [Rx] Budesonide/Formoterol 160/4.5 [Symbicort 160/4.5] 2 puff IH BIDR 02/19/17 [ History] Guaifenesin [Mucinex] 600 mg PO Q12H PRN 02/19/17 [History] ALPRAZolam [Xanax 0.25 MG Tablet] 0.25 mg PO DAILY PRN #0 02/24/17 [Rx] Docusate Sodium [Colace] 100 mg PO BID #180 capsule 02/24/17 [Rx] Furosemide [Lasix] 20 mg PO DAILY PRN #30 tablet 02/24/17 [Rx] Oxygen 1.5 l NS AD #0 02/24/17 [Rx] Polyethylene Glycol 3350 [MiraLAX] 17 gm PO BID #180 02/24/17 [Rx] Sennosides [Senna] 8.6 mg PO BID PRN #180 02/24/17 [Rx] Guaifenesin [Tussin] 200 mg PO Q4H PRN 05/23/17 [History] 3 Allergy/AdvReac Type Severity Reaction Status Date / Time acetylcysteine Allergy Severe Anaphylaxis Verified 03/08/17 13:07 Iodinated Contrast- Oral and Allergy See Verified 03/08/17 13:07 IV Dye Comments [Iodinated Contrast Media - IV Dye] ramelteon [From Rozerem] Allergy Difficulty Verified 03/08/17 13:07 Breathing Amoxicillin [From Augmentin] AdvReac Intermediate Nausea Verified 03/08/17 13:07 azithromycin [From Zithromax] AdvReac Intermediate Nausea Verified 03/08/17 13: 07 clavulanic acid AdvReac Intermediate Nausea Verified 03/08/17 13:07 [From Augmentin] dexlansoprazole AdvReac Mild Headache Verified 03/08/17 13:07 [From Dexilant] prednisone AdvReac Mild See Verified 03/08/17 13:07 Comments sertraline [From Zoloft] AdvReac Mild Depression Verified 03/08/17 13:07 Tetracycline AdvReac Mild Nausea Verified 03/08/17 13:07 Varenicline [From Chantix] AdvReac Mild Nightmare Verified 03/08/17 13:07 All Systems: All Review of Systems were negative Physical Examination Vital Signs: Vital Signs, Last 4 Hours Resp Pulse Ox 05/24/17 08:17 16 93 Auscultation: bilateral: clear Results - Laboratory Findings CBC and BMP: 05/25/17 07:12 05/25/17 07:12 PT/INR, D-dimer PT 10.5 Seconds (9.4-12.1) 05/23/17 11:47 Abnormal lab findings: Abnormal lab results Plt Count 404 K/mcL (140-400) H 05/24/17 02:25 MPV 8.3 fL (9.4-12.4) L 05/24/17 02:25 APTT 38.2 Seconds (26.0-36.0) H 05/23/17 11:47 Sodium 135 mEq/L (136-145) L 05/24/17 02:25 BUN 7 mg/dL (8-23) L 05/24/17 02:25 Creatinine 0.50 mg/dL (0.60-1.20) L 05/24/17 02:25 Glucose 112 mg/dL (70-105) H 05/24/17 02:25 Calculated Osmolality 279 (280-300) L 05/24/17 02:25 B-Natriuretic Peptide 119 pg/mL (Less than 100) H 05/23/17 11:47 Serum Total Protein 6.3 g/dL (6.4-8.9) L 05/23/17 11:47 - Clinical Findings Intake & Output: Intake & Output 05/23/17 05/24/17 05/24/17 23:59 07:59 15:59 Weight 63.639 kg Consult Discharge Plan - Plan Referrals: Paula Casiano CNP [Primary Care Provider] -
--- NOTE | 2017-05-24 16:21 | Internal Med Progress Note ---
Date of Encounter: 05/24/17 Time of Encounter: 12:00 - Assessment and plan (1) Acute exacerbation of chronic obstructive airways disease Current Visit: Yes Status: Acute Assessment and plan: Patient has no appreciable wheezing on auscultation Chest x-ray is negative she is afebrile leukocytosis at this time We will continue with home medications I did discuss this case with the clinical fellow and does suggest respiratory panel initially on doxycycline (2) Hyponatremia Current Visit: Yes Status: Acute Assessment and plan: On presentation patient's sodium was 128 she did appear to be dehydrated she was given gentle IV fluids this a.m. the sodium improved to 135. We will stop IV fluids patient is taking orals we will monitor sodium (3) Tracheomalacia Current Visit: No Status: Acute Assessment and plan: Managed per pulmonology (4) CHF (congestive heart failure) Current Visit: No Status: Chronic Assessment and plan: Stable we will continue home medications Qualifiers: Congestive heart failure type: combined Congestive heart failure chronicity : chronic Qualified Code(s): I50.42 - Chronic combined systolic (congestive) and diastolic (congestive) heart failure (5) Hypertension Current Visit: No Status: Acute Assessment and plan: Stable continue home medications Qualifiers: Hypertension type: essential hypertension Qualified Code(s): I10 - Essential (primary) hypertension (6) DVT prophylaxis Current Visit: No Status: Acute Assessment and plan: Heparin subcutaneous - Time Spent With Patient less than 15 minutes - Subjective Interval history: Patient presented to the ER with increased soreness of breath exertion and cough has a history of tracheobronchial malacia. She continues to complain of cough she has some congestion and dry mouth concerned of tracheal dryness. Encouraged patient to continue to use Biotene and nasal saline. No fevers or chills moist. Shortness of breath has improved. 2. - Constitutional Vitals: Temp Pulse Resp BP Pulse Ox 98.7 F 92 16 149/82 94 05/24/17 12:24 05/24/17 12:24 05/24/17 12:29 05/24/17 12:24 05/24/17 12:29 General appearance: Present: A&O X 3, no acute distress, answers questions appropriately Internal Medicine: Result - Labs CBC & Chem 7: 05/24/17 02:25 05/24/17 02:25 Labs: Short CBC 05/24/17 Range/Units 02:25 WBC 4.3 (4.3-11.1) K/mcL Hgb 12.6 (11.5-15.4) g/dL Hct 37.6 (35.3-44.9) % Plt Count 404 H (140-400) K/mcL Neutrophils # 3.3 (1.6-8.9) K/mcL BMP 05/24/17 02:25 Sodium 135 L Potassium 4.5 Chloride 102 Carbon Dioxide 28 BUN 7 L Creatinine 0.50 L Glucose 112 H Calcium 9.0 - ABG Interpretation ABG results: PT/INR, D-dimer PT 10.5 Seconds (9.4-12.1) 05/23/17 11:47 Consult Discharge Plan - Plan Referrals: Paula Casiano, ALONZO [Primary Care Provider] -
[2017-05-24] MEDS: Doxycycline 100 MG in 0.9 % Sodium Chloride Mini Bag 100 ML IVPB SCH (16:32)
[2017-05-24 18:02] LABS: Adenovirus Not Detected (Not Detect); Bordetella Pertussis Not Detected (Not Detect); Chlamydophila pneumoniae Not Detected (Not Detect); Coronavirus 229E Not Detected (Not Detect); Coronavirus HKU1 Not Detected (Not Detect); Coronavirus NL63 Not Detected (Not Detect); Coronavirus OC43 Not Detected (Not Detect); Human Metapneumovirus Not Detected (Not Detect); Human Rhinovirus/Enterovirus Not Detected (Not Detect); Influenza A Subtype 2009 H1 Not Detected (Not Detect); Influenza A Untypeable Not Detected (Not Detect); Influenza B Not Detected (Not Detect); Mycoplasma pneumoniae Not Detected (Not Detect); Parainfluenza Virus 1 Not Detected (Not Detect); Parainfluenza Virus 2 Not Detected (Not Detect); Parainfluenza Virus 3 Not Detected (Not Detect); Parainfluenza Virus 4 Not Detected (Not Detect); Respiratory Syncytial Virus Not Detected (Not Detect)
[2017-05-24] MEDS ORDERED: Sennosides 8.6 MG TABLET PO PRN (19:26)
[2017-05-24] MEDS: Budesonide/Formoterol 160/4.5 MDI IH SCH (20:25)
[2017-05-24] MEDS: ALPRAZolam 0.5 MG TABLET PO SCH (21:57)
[2017-05-24] MEDS: Fluticasone Propionate Nasal 50 MCG/SPRAY BOTTLE NS SCH (21:58)
[2017-05-25] MEDS: *HR* HYDROcodone/Acet 5/325 mg TABLET PO PRN ×2 (03:55→20:29)
[2017-05-25] MEDS: *HR* Heparin 5,000 UNIT/ML VIAL SQ SCH ×3 (06:11→22:22)
[2017-05-25] MEDS: Doxycycline 100 MG in 0.9 % Sodium Chloride Mini Bag 100 ML IVPB SCH ×2 (06:12→17:10)
[2017-05-25] MEDS: Tiotropium 18 MCG inhalation IH SCH (07:45)
[2017-05-25] MEDS: Budesonide/Formoterol 160/4.5 MDI IH SCH ×2 (07:48→20:02)
[2017-05-25 07:56] LABS: Basophils # 0.1 K/mcL (0.0-0.2); Eosinophils # 0.1 K/mcL (0.0-0.6); Hematocrit 37.5 % (35.3-44.9); Hemoglobin 12.4 g/dL (11.5-15.4); Immature Granulocytes % 0.3 % (0-4); Lymphocytes # 2.1 K/mcL (0.6-4.6); Lymphocytes % 29.1 %; Mean Corpuscular HGB Conc 33.1 g/dL (31.6-35.5); Mean Corpuscular Hemoglobin 29.8 pg (28.0-33.3); Mean Corpuscular Volume 90.1 fL (83.0-100.0); Mean Platelet Volume 8.5 fL (9.4-12.4); Monocytes # 0.8 K/mcL (0.0-1.3); Monocytes % 10.8 %; Nucleated Red Blood Cells 0.3 /100 WBC (0); Platelet Count 413 K/mcL (140-400); Red Blood Count 4.16 M/mcL (3.82-4.97); Red Cell Distribution Width 13.7 % (11.5-14.5); Segmented Neutrophils % 56.8 %
[2017-05-25 08:17] LABS: BUN/Creatinine Ratio 19 (6-26); Blood Urea Nitrogen 10 mg/dL (8-23); Calcium 8.8 mg/dL (8.6-10.3); Carbon Dioxide 30 mEq/L (23-29); Chloride 102 mEq/L (98-107); Glucose 90 mg/dL (70-105); Osmolality,Calculated 285 (280-300); Potassium 3.9 mEq/L (3.5-5.1); Sodium 138 mEq/L (136-145); eGFR For African Americans > 60 (> 60); eGFR For Non-African Americans > 60 (> 60)
[2017-05-25] MEDS: Aspirin Enteric Coated 81 MG Tablet PO SCH (08:38)
--- NOTE | 2017-05-25 10:10 | Electrocardiograph Report ---
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
--- NOTE | 2017-05-25 10:51 | Pulmonology Progress Note ---
Date of Encounter: 05/26/17 Time of Encounter: 10:30 Assessment and Plan (1) Sinusitis, acute Status: Acute Patient symptoms are getting better will continue antibiotics for total of 7 - 10 days depends upon response Qualifiers: Sinusitis location: maxillary Recurrence: non-recurrent Qualified Code(s) : J01.00 - Acute maxillary sinusitis, unspecified (2) COPD, very severe Status: Chronic Patient has increased wheezing today will start on prednisone 20 mg PO for 5 days . To send home on these bronchodilators Albuterol HFA, Symbicort BID , Spiriva Handihaler (3) Chronic respiratory failure Status: Chronic She is at her baseline Oxygen requirements Qualifiers: Respiratory failure complication: hypoxia Qualified Code(s): J96.11 - Chronic respiratory failure with hypoxia (4) CHF (congestive heart failure) Status: Chronic Patient looks euvolemic . Qualifiers: Congestive heart failure type: combined Congestive heart failure chronicity : chronic Qualified Code(s): I50.42 - Chronic combined systolic (congestive) and diastolic (congestive) heart failure (5) NUBIA (obstructive sleep apnea) Status: Acute To Continue APAP 5-20 Subjective Principal diagnosis: Sinusitis with COPD exacerbation Interval history: She is feeling lot better her secretions is lot better , her cough is better . Says she her breathing is fine Objective PUL Vital signs: Last Vital Signs Temp 97.0 F L 05/25/17 06:25 Pulse 80 05/25/17 06:25 Resp 18 05/25/17 07:49 BP 150/82 05/25/17 06:25 Pulse Ox 94 05/25/17 07:49 Auscultation: bilateral: wheezes Results - Laboratory Findings CBC and BMP: 05/25/17 07:12 05/25/17 07:12 PT/INR, D-dimer PT 10.5 Seconds (9.4-12.1) 05/23/17 11:47 Abnormal lab findings: Abnormal lab results Plt Count 413 K/mcL (140-400) H 05/25/17 07:12 MPV 8.5 fL (9.4-12.4) L 05/25/17 07:12 Nucleated RBCs/100 WBC 0.3 /100 WBC (0) H 05/25/17 07:12 APTT 38.2 Seconds (26.0-36.0) H 05/23/17 11:47 Carbon Dioxide 30 mEq/L (23-29) H 05/25/17 07:12 Creatinine 0.54 mg/dL (0.60-1.20) L 05/25/17 07:12 B-Natriuretic Peptide 119 pg/mL (Less than 100) H 05/23/17 11:47 Serum Total Protein 6.3 g/dL (6.4-8.9) L 05/23/17 11:47 - Clinical Findings Intake & Output: Intake & Output 05/24/17 05/25/17 05/25/17 23:59 07:59 15:59 Intake Total 100 / 100 Balance 100 / 100 Weight 64.637 kg Consult Discharge Plan - Plan Instructions: Sinusitis (GEN), Chronic Obstructive Pulmonary Disease (DC) Referrals: Paula Casiano CNP [Primary Care Provider] - Prescriptions: Doxycycline 100 mg PO BID #11 capsule
--- NOTE | 2017-05-25 17:08 | Internal Med Progress Note ---
Date of Encounter: 05/25/17 Time of Encounter: 11:00 - Assessment and plan (1) Acute exacerbation of chronic obstructive airways disease Current Visit: Yes Status: Acute Assessment and plan: Patient has no appreciable wheezing on auscultation Chest x-ray is negative she is afebrile leukocytosis at this time We will continue with home medications She is on her oxygen and appears to be at baseline (2) Hyponatremia Current Visit: Yes Status: Acute Assessment and plan: Resolved (3) Tracheomalacia Current Visit: No Status: Acute Assessment and plan: Managed per pulmonology (4) CHF (congestive heart failure) Current Visit: No Status: Chronic Assessment and plan: Stable we will continue home medications Qualifiers: Congestive heart failure type: combined Congestive heart failure chronicity : chronic Qualified Code(s): I50.42 - Chronic combined systolic (congestive) and diastolic (congestive) heart failure (5) Hypertension Current Visit: No Status: Acute Assessment and plan: Stable continue home medications Qualifiers: Hypertension type: essential hypertension Qualified Code(s): I10 - Essential (primary) hypertension (6) DVT prophylaxis Current Visit: No Status: Acute Assessment and plan: Heparin subcutaneous (7) NUBIA (obstructive sleep apnea) Current Visit: Yes Status: Acute Assessment and plan: On APAP 5/20 cm H2O (8) Sinusitis, acute Current Visit: Yes Status: Acute Assessment and plan: 1 she is complaining of pressure and nasal drainage may be attributing to cough and shortness of breath we will continue with doxycycline twice a day Qualifiers: Sinusitis location: maxillary Recurrence: non-recurrent Qualified Code(s) : J01.00 - Acute maxillary sinusitis, unspecified - Subjective Interval history: Patient's breathing has improved she does have some occasional wheezes Encouraged patient to continue to use Biotene and nasal saline. Anticipate patient discharged tomorrow 2. - Constitutional Vitals: Temp Pulse Resp BP Pulse Ox 98.1 F 81 22 178/107 95 05/25/17 13:42 05/25/17 13:42 05/25/17 13:42 05/25/17 13:42 05/25/17 13:42 General appearance: Present: A&O X 3, no acute distress, answers questions appropriately - Head Head exam: Present: atraumatic, normocephalic - Eye Eye exam: Present: PERRL, conjuntiva pink, sclera anicteric Pupils: Present: PERRL - Neck Neck exam general surgery: Present: supple, trachea midline. Absent: lymphadenopathy - Respiratory Respiratory exam: Present: CTAB. Absent: accessory muscle use, rales, rhonchi, wheezes - Cardiovascular Cardiovascular exam: Present: RRR, +S1, +S2. Absent: diastolic murmur, gallop, rubs, systolic murmur - GI/Abdominal GI/Abdominal exam: Present: normal bowel sounds, soft, no peritoneal signs. Absent: distended, tenderness - Extremities Exam Extremities exam: Present: warm, radial pulses palpable and symmetrical. Absent : calf tenderness, cyanotic, pedal edema - Neurological Exam Neurological exam: Present: CN II-XII intact, oriented X3, no focal deficits. Absent: pronater drift, facial droop, speech deficit - Skin Skin exam: Present: dry, intact Internal Medicine: Result - Labs CBC & Chem 7: 05/25/17 07:12 05/25/17 07:12 Labs: Short CBC 05/25/17 Range/Units 07:12 WBC 7.1 D (4.3-11.1) K/mcL Hgb 12.4 (11.5-15.4) g/dL Hct 37.5 (35.3-44.9) % Plt Count 413 H (140-400) K/mcL Neutrophils # 4.0 (1.6-8.9) K/mcL BMP 05/25/17 07:12 Sodium 138 Potassium 3.9 Chloride 102 Carbon Dioxide 30 H BUN 10 Creatinine 0.54 L Glucose 90 Calcium 8.8 - ABG Interpretation ABG results: PT/INR, D-dimer PT 10.5 Seconds (9.4-12.1) 05/23/17 11:47 Consult Discharge Plan - Plan Referrals: Paula Casiano, [employer] [Primary Care Provider] -
[2017-05-25] MEDS: predniSONE 20 MG TABLET PO SCH (22:22)
[2017-05-25] MEDS: ALPRAZolam 0.5 MG TABLET PO SCH (22:22)
[2017-05-25] MEDS: Fluticasone Propionate Nasal 50 MCG/SPRAY BOTTLE NS SCH (22:22)
[2017-05-26] MEDS: *HR* HYDROcodone/Acet 5/325 mg TABLET PO PRN (04:01)
[2017-05-26] MEDS: Doxycycline 100 MG in 0.9 % Sodium Chloride Mini Bag 100 ML IVPB SCH (06:05)
[2017-05-26] MEDS: *HR* Heparin 5,000 UNIT/ML VIAL SQ SCH (06:05)
--- NOTE | 2017-05-26 07:43 | Discharge Summary ---
Date of Encounter: 05/26/17 Time of Encounter: 07:39 - Discharge Diagnosis (1) Acute exacerbation of chronic obstructive airways disease Priority: Primary Status: Acute (2) Sinusitis, acute Priority: Primary Status: Acute Comments: She has been complaining of frontal head pressure as well as nasal drainage this may be contributing to her cough and shortness of breath we will continue with doxycycline twice a day for 7 days Qualifiers: Sinusitis location: maxillary Recurrence: non-recurrent Qualified Code(s) : J01.00 - Acute maxillary sinusitis, unspecified (3) Hyponatremia Priority: Secondary Status: Resolved Comments: Resolved (4) Tracheomalacia Priority: Secondary Status: Chronic Comments: This is chronic condition managed by pulmonary patient will follow up as outpatient (5) CHF (congestive heart failure) Priority: Secondary Status: Chronic Comments: Presently stable continue with home medications Qualifiers: Congestive heart failure type: combined Congestive heart failure chronicity : chronic Qualified Code(s): I50.42 - Chronic combined systolic (congestive) and diastolic (congestive) heart failure (6) Hypertension Priority: Secondary Status: Chronic Comments: Stable continue at home medications Qualifiers: Hypertension type: essential hypertension Qualified Code(s): I10 - Essential (primary) hypertension (7) NUBIA (obstructive sleep apnea) Priority: Secondary Status: Acute Comments: Continue with CPAP at home - Discharge Medications Prescriptions: Doxycycline 100 mg PO BID #11 capsule Home Medications: Nitroglycerin [Nitrostat] 0.4 mg SL Q5M PRN 11/22/15 [History] Acetaminophen [Tylenol] 1,000 mg PO Q6HR PRN 12/20/15 [History] Albuterol Neb [Proventil Neb] 2.5 mg IH QID 01/04/16 [History] Tiotropium [Spiriva] 18 mcg IH 0800 01/04/16 [History] HYDROcodone/Acet 5/325 mg [[place] 5-325 mg] 1 tab PO TID PRN 02/26/16 [History] Ondansetron ODT [Zofran ODT] 4 mg SL Q8HR PRN 02/26/16 [History] Fluticasone Propionate Nasal [Flonase] 1 spr NS HS 05/03/16 [History] Metoprolol [Lopressor] 12.5 mg PO BID 05/03/16 [History] Albuterol Sulfate [Proair Hfa] 2 puff IH Q4H PRN 11/17/16 [History] Aspirin [Lo-Dose Aspirin EC] 81 mg PO DAILY 11/17/16 [History] Diclofenac Sodium [Voltaren] 1 appl TP QID PRN 11/17/16 [History] Mv,Fe,Min/Lutein [A Thru Z [employer] Tablet] 1 tab PO DAILY 11/17/16 [ History] Omeprazole [PriLOSEC] 20 mg PO BID #60 11/19/16 [Rx] Simethicone [Gas-X] 125 mg PO TID 12/26/16 [History] Syringe W-Needle,Disposab,1 ml [Allergy Syringe] 1 each IJ QWEEK 12/26/16 [ History] Calcium Carbonate [Tums] 1,000 mg PO Q4HR PRN #120 tab 12/31/16 [Rx] Budesonide/Formoterol 160/4.5 [Symbicort 160/4.5] 2 puff IH BIDR 02/19/17 [ History] Guaifenesin [Mucinex] 600 mg PO Q12H PRN 02/19/17 [History] ALPRAZolam [Xanax 0.25 MG Tablet] 0.25 mg PO DAILY PRN #0 02/24/17 [Rx] Docusate Sodium [Colace] 100 mg PO BID #180 capsule 02/24/17 [Rx] Furosemide [Lasix] 20 mg PO DAILY PRN #30 tablet 02/24/17 [Rx] Oxygen 1.5 l NS AD #0 02/24/17 [Rx] Polyethylene Glycol 3350 [MiraLAX] 17 gm PO BID #180 02/24/17 [Rx] Sennosides [Senna] 8.6 mg PO BID PRN #180 02/24/17 [Rx] Guaifenesin [Tussin] 200 mg PO Q4H PRN 05/23/17 [History] Doxycycline 100 mg PO BID #11 capsule 05/26/17 [Rx] Allergies/Adverse Reactions: 3 Allergy/AdvReac Type Severity Reaction Status Date / Time acetylcysteine Allergy Severe Anaphylaxis Verified 03/08/17 13:07 Iodinated Contrast- Oral and Allergy See Verified 03/08/17 13:07 IV Dye Comments [Iodinated Contrast Media - IV Dye] ramelteon [From Rozerem] Allergy Difficulty Verified 03/08/17 13:07 Breathing Amoxicillin [From Augmentin] AdvReac Intermediate Nausea Verified 03/08/17 13:07 azithromycin [From Zithromax] AdvReac Intermediate Nausea Verified 03/08/17 13: 07 clavulanic acid AdvReac Intermediate Nausea Verified 03/08/17 13:07 [From Augmentin] dexlansoprazole AdvReac Mild Headache Verified 03/08/17 13:07 [From Dexilant] prednisone AdvReac Mild See Verified 03/08/17 13:07 Comments sertraline [From Zoloft] AdvReac Mild Depression Verified 03/08/17 13:07 Tetracycline AdvReac Mild Nausea Verified 03/08/17 13:07 Varenicline [From Chantix] AdvReac Mild Nightmare Verified 03/08/17 13:07 Date of admission: 05/23/17 15:26 Primary care physician: Paula Casiano, Consults: 05/23/17 17:12 Consult to Pulmonology [CONS] Routine Consulting Provider: [facility] Reason for Consult: COPD exacerbation Time Notified: 16:00 Call Completed: Yes Discharging clinician: Anastasia Edmondson Anticipated date of discharge: 05/26/17 - Patient Status Disposition: Home Health Service Condition: Good Functional capacity at discharge: independent ambulation - Discharge Instructions Instructions: Chronic Obstructive Pulmonary Disease (DC) Follow Up With: Paula Casiano, ALONZO [Primary Care Provider] - - Diet and Activity Activity: wear oxygen at night Diet: advance to your usual diet Hospital course: Ms. Blackburn is a 71 year old female patient with past medical history of COPD O2 dependent diastolic heart failure as well as a on CPAP tracheal malacia. Patient presented to the ER for complaints of one-week shortness of breath off and on lower extremity edema she did have nasal secretions with postnasal drip and cough slight increase in sputum production. She did not have a white count chest x-ray was clear she was seen by pulmonary patient started on doxycycline suspect sinusitis which may be contributing to her symptoms. She had hyponatremia which is now corrected. Her breathing has improved no wheezes appreciated and she is ready for discharge. IV medications as well as follow- up appointments with pulmonary which she voiced understanding she is hemodynamically stable this time Time spent discussing smoking cessation with patient: 3 to 10 minutes - Time Spent with Patient Total time spent providing and/or coordinating discharge services: - Constitutional Vitals: Temp Pulse Resp BP Pulse Ox 97.9 F 88 16 170/96 98 05/26/17 03:40 05/26/17 03:40 05/26/17 03:40 05/26/17 03:40 05/26/17 03:40 General appearance: Present: A&O X 3, no acute distress, answers questions appropriately - Head Head exam: Present: atraumatic, normocephalic - Eye Eye exam: Present: PERRL, conjuntiva pink, sclera anicteric - Neck Neck exam general surgery: Present: supple, trachea midline. Absent: lymphadenopathy - Respiratory Respiratory exam: Present: CTAB. Absent: accessory muscle use, rales, rhonchi, wheezes - Cardiovascular Cardiovascular exam: Present: RRR, +S1, +S2. Absent: diastolic murmur, gallop, rubs, systolic murmur - GI/Abdominal GI/Abdominal exam: Present: normal bowel sounds, soft, no peritoneal signs. Absent: distended, tenderness - Extremities Exam Extremities exam: Present: warm, radial pulses palpable and symmetrical. Absent : calf tenderness, cyanotic, pedal edema - Neurological Exam Neurological exam: Present: CN II-XII intact, oriented X3, no focal deficits. Absent: pronater drift, facial droop, speech deficit - Skin Skin exam: Present: dry, intact
[2017-05-26] MEDS: Budesonide/Formoterol 160/4.5 MDI IH SCH (08:11)
[2017-05-26] MEDS: Tiotropium 18 MCG inhalation IH SCH (08:13)
[2017-05-26] MEDS: predniSONE 20 MG TABLET PO SCH (08:36)
[2017-05-26] MEDS: Aspirin Enteric Coated 81 MG Tablet PO SCH (08:36)
[2017-05-26 12:00] VITALS: BP 123/73
== END 2017-05-26 13:10 | disposition home health service (06) ==
LOC: 3BNU 11:16 → EMEROO 11:16 → 3BNU 16:11
PROVIDERS: ADMIT Hospitalist; ATTEND Registered Nurse

== ENCOUNTER 2018-01-09 07:55 | Observation (INO) ==
[2018-01-09] MEDS ORDERED: methylPREDNISolone 125 MG/2 ML VIAL IVP ONE (08:15)
--- NOTE | 2018-01-09 08:15 | Emergency Department Note ---
Disposition Clinical Impression: COPD exacerbation Disposition: Admitted As Inpatient Condition: Fair Referrals: Paula Casiano CNP [Primary Care Provider] - Forms: ED Satisfaction Letter Time of Disposition: 10:10 General Adult HPI - General Chief complaint: ED Shortness of Breath/Dyspnea Stated complaint: VERO Time Seen by Provider: 01/09/18 08:11 Source: patient Limitations: no limitations - History of Present Illness HPI Narrative: Patient is a 72-year-old female with past medical history of CHF, tracheomalacia , vocal cord dysfunction, and COPD on 2 L nasal cannula at home presents to the emergency department for shortness of breath that is worse today. She states over the past 2 weeks she has had a sinus infection and had posterior nasal drainage which she is being treated for sinusitis and finished a course of Augmentin proximal 6 days ago. She states that since that time she has had a productive cough with green sputum and noticed increased dyspnea today. She denies any chest pain. States that this feels like her COPD in conjunction with her tracheomalacia she has a difficult time bringing up her sputum. States she also needs her breathing treatments through a BiPAP machine given her history of third trachea. Pain Scale: 5 - Related Data Home Medications Medication Instructions Recorded Confirmed Nitroglycerin [Nitrostat] 0.4 mg SL Q5M PRN 11/22/15 08/05/17 Acetaminophen [Tylenol] 1,000 mg PO Q6HR PRN 12/20/15 08/05/17 Tiotropium [Spiriva] 18 mcg IH 0800 01/04/16 08/05/17 HYDROcodone/Acet 5/325 mg [[place] 1 tab PO TID PRN 02/26/16 08/05/17 5-325 mg] Ondansetron ODT [Zofran ODT] 4 mg SL Q8HR PRN 02/26/16 08/05/17 Fluticasone Propionate Nasal 1 spr NS HS 05/03/16 08/05/17 [Flonase] Albuterol Sulfate [Proair Hfa] 2 puff IH Q4H PRN 11/17/16 08/05/17 Aspirin [Lo-Dose Aspirin EC] 81 mg PO DAILY 11/17/16 08/05/17 Simethicone [Gas-X] 125 mg PO TID 12/26/16 08/05/17 Budesonide/Formoterol 160/4.5 2 puff IH BIDR 02/19/17 08/05/17 [Symbicort 160/4.5] Guaifenesin [Mucinex] 600 mg PO Q12H PRN 02/19/17 08/05/17 ALPRAZolam [Xanax 0.25 MG Tablet] 0.25 mg PO TID PRN 06/17/17 08/05/17 Bisacodyl [Dulcolax] 10 mg RC DAILY 08/05/17 08/05/17 Docusate [Colace] 100 mg PO BID 08/05/17 08/05/17 Ergocalciferol (VITAMIN D2) 50,000 unit PO FR 08/05/17 08/05/17 [Vitamin D2] Lactobacillus Acidophilus 1 cap PO DAILY 08/05/17 08/05/17 [Acidophilus] Lactulose [Enulose] 30 ml PO DAILY 08/05/17 08/05/17 Methimazole [Tapazole] 20 mg PO DAILY 08/05/17 08/05/17 Multivitamin [One Daily Essential] 1 tab PO DAILY 08/05/17 08/05/17 Previous Rx's Medication Instructions Recorded Oxygen 1.5 l NS AD #0 02/24/17 predniSONE [PredniSONE] 10 mg PO DAILY #21 tablet 06/23/17 predniSONE [PredniSONE] 30 mg PO DAILY 5 Days #15 tablet 11/26/17 Allergies Allergy/AdvReac Type Severity Reaction Status Date / Time acetylcysteine Allergy Severe Anaphylaxis Verified 01/09/18 07:59 ramelteon [From Rozerem] Allergy Difficulty Verified 01/09/18 07:59 Breathing Amoxicillin [From Augmentin] AdvReac Intermediate Nausea Verified 01/09/18 07:59 azithromycin [From Zithromax] AdvReac Intermediate Nausea Verified 01/09/18 07: 59 clavulanic acid AdvReac Intermediate Nausea Verified 01/09/18 07:59 [From Augmentin] dexlansoprazole AdvReac Mild Headache Verified 01/09/18 07:59 [From Dexilant] prednisone AdvReac Mild See Verified 01/09/18 07:59 Comments sertraline [From Zoloft] AdvReac Mild Depression Verified 01/09/18 07:59 Tetracycline AdvReac Mild Nausea Verified 01/09/18 07:59 Varenicline [From Chantix] AdvReac Mild Nightmare Verified 01/09/18 07:59 All systems ED: reviewed and negative except as stated. Review of Systems: As Per HPI Constitutional: Denies: fever, chills Cardiovascular: Reports: dyspnea on exertion. Denies: chest pain, palpitations , edema, syncope, paroxysmal nocturnal dyspnea Respiratory: Reports: cough, dyspnea, wheezes, sputum production. Denies: hemoptysis, stridor Gastrointestinal: Denies: abdominal pain, nausea, vomiting Musculoskeletal: Denies: back pain, neck pain Neurological: Denies: headache Past Medical History - Past Medical History Attestation: Yes The following information was validated with the patient. Medical history: Reports: asthma, cancer, cardiomyopathy, CHF, COPD, coronary artery disease, GERD, hyperlipidemia, hypertension, myocardial infarction, osteoporosis, pulmonary embolus, thyroid disease, other Surgical history: Reports: angioplasty/stent, cancer surgery, cataract, cholecystectomy, sinus surgery Psychiatric history: Reports: anxiety, depression OFFICE EXECUTIVE history: Reports: other - Social History Smoking Status: Former smoker Smokeless Tobacco Status: No Alcohol use: Reports: none Drug use: Reports: none Physical Exam CONSTITUTIONAL: Appears stated age; A&O X 3, in no apparent distress. Vitals within normal limits, except patient does have tachycardia at 103. HEAD: Normocephalic; atraumatic EYES: PERRL, no scleral icterus NOSE: The nose is normal in appearance without rhinorrhea NECK: No JVD or distended neck veins RESP: Wheezing bilaterally. Appears to have mild increase work of breathing on exam, saturation is 100% on 2LNC which is patient norm. CARD: Regular rhythm, without murmurs, rub or gallop ABD: Non-distended; non-tender, soft, without rigidity, rebound or guarding,no pulsatile mass CHEST: No pain with palpation SKIN: Normal for age and race; warm and dry without diaphoresis ; no apparent lesions EXTREMITIES: Pulses are 2 plus and equal times 4 extremities, no peripheral edema or calf muscle pain - General Limitations: no limitations General appearance: alert Course Course Narrative: Given the patient's history of CAD which patient states she had an NM which was medically treated, COPD on 2 L nasal cannula as well as tracheal malacia plan at this time is to work the patient up for her dyspnea. She will undergo treatment with a BiPAP per her request with Sarah[facility] treatments. I do not think BiPAP is indicated at this time, however the patient states that her tracheomalacia and vocal cord dysfunction she normally takes her breathing treatments with a BiPAP. Discussed also start the patient on IV steroids for concern of COPD exacerbation as well as give her an initial dose of antibiotic given her productive sputum change. Patient is otherwise stable plan at this time is to perform a cardiac workup of the patient and she will be admitted to hospital for further evaluation and treatment. - Reevaluation(s) Reevaluation #1: Patient states that she feels symptomatically improved after receiving the albuterol treatments. Discussed with the patient that I discussed her case with the hospitalist on-call that she has been accepted to the hospital for further treatment of her COPD exacerbation. Discussed that her other lab work was unremarkable at this time. Patient agrees with this plan. Time: 10:09 Vital Signs Temperature 98.7 F 01/09/18 08:00 Pulse Rate 105 01/09/18 08:00 Respiratory Rate 24 01/09/18 08:00 Blood Pressure 143/92 01/09/18 08:00 O2 Sat by Pulse Oximetry 100 01/09/18 08:00 Temperature 98.7 F 01/09/18 08:00 Pulse Rate 100 01/09/18 09:30 Respiratory Rate 20 01/09/18 09:30 Blood Pressure 152/88 01/09/18 09:30 O2 Sat by Pulse Oximetry 100 01/09/18 09:30 Oxygen Delivery Oxygen Delivery Nasal Cannula Medical Decision Making - Medical Records Medical records reviewed: Yes I reviewed the patient's medical records. - Lab Data Lab results reviewed: Yes I reviewed the patient's lab results. Result diagrams: 01/09/18 08:14 01/09/18 08:14 Lab Results 01/09/18 01/09/18 01/09/18 Range/Units 08:14 08:14 08:14 WBC 8.8 (4.3-11.1) K/mcL RBC 4.43 (3.82-4.97) M/mcL Hgb 12.6 (11.5-15.4) g/dL Hct 38.4 (35.3-44.9) % MCV 86.7 (83.0-100.0) fL MCH 28.4 (28.0-33.3) pg MCHC 32.8 (31.6-35.5) g/dL RDW 15.1 H (11.5-14.5) % Plt Count 433 H (140-400) K/mcL MPV 8.0 L (9.4-12.4) fL Immature Gran % 0.3 (0-4) % Seg Neutrophils % 76.7 % Lymphocytes % 11.0 % Monocytes % 9.2 % Eosinophils % 2.0 % Basophils % 0.8 % Neutrophils # 6.8 (1.6-8.9) K/mcL Lymphocytes # 1.0 (0.6-4.6) K/mcL Monocytes # 0.8 (0.0-1.3) K/mcL Eosinophils # 0.2 (0.0-0.6) K/mcL Basophils # 0.1 (0.0-0.2) K/mcL Sodium 132 L (136-145) mEq/L Potassium 4.2 (3.5-5.1) mEq/L Chloride 96 L (98-107) mEq/L Carbon Dioxide 31 H (23-29) mEq/L BUN 11 (8-23) mg/dL Creatinine 0.65 (0.60-1.20) mg/dL Est GFR ( Amer) > 60 (> 60) Est GFR (Non-Af Amer) > 60 (> 60) BUN/Creatinine Ratio 17 (6-26) Glucose 112 H (70-105) mg/dL Calculated Osmolality 274 L (280-300) Lactic Acid (0.5-2.2) mmol/L Calcium 9.4 (8.6-10.3) mg/dL Troponin I < 0.03 (< 0.04) ng/mL B-Natriuretic Peptide 95 (Less than 100) pg/mL 01/09/18 Range/Units 08:36 WBC (4.3-11.1) K/mcL RBC (3.82-4.97) M/mcL Hgb (11.5-15.4) g/dL Hct (35.3-44.9) % MCV (83.0-100.0) fL MCH (28.0-33.3) pg MCHC (31.6-35.5) g/dL RDW (11.5-14.5) % Plt Count (140-400) K/mcL MPV (9.4-12.4) fL Immature Gran % (0-4) % Seg Neutrophils % % Lymphocytes % % Monocytes % % Eosinophils % % Basophils % % Neutrophils # (1.6-8.9) K/mcL Lymphocytes # (0.6-4.6) K/mcL Monocytes # (0.0-1.3) K/mcL Eosinophils # (0.0-0.6) K/mcL Basophils # (0.0-0.2) K/mcL Sodium (136-145) mEq/L Potassium (3.5-5.1) mEq/L Chloride (98-107) mEq/L Carbon Dioxide (23-29) mEq/L BUN (8-23) mg/dL Creatinine (0.60-1.20) mg/dL Est GFR ( Amer) (> 60) Est GFR (Non-Af Amer) (> 60) BUN/Creatinine Ratio (6-26) Glucose (70-105) mg/dL Calculated Osmolality (280-300) Lactic Acid 0.8 (0.5-2.2) mmol/L Calcium (8.6-10.3) mg/dL Troponin I (< 0.04) ng/mL B-Natriuretic Peptide (Less than 100) pg/mL - Radiology Data Radiology results reviewed: Yes I reviewed the patient's radiology results. Chest X-Ray 01/09/18 08:14 IMPRESSION: COPD. D/ / 01/09/2018 08:44:45 [facility] Interpreting Provider: Stephen Singh MD - EKG Data EKG #1 EKG attestation: Yes I reviewed and interpreted this EKG. EKG results narrative: EKG done at 8:08 shows sinus tachycardia at a rate of 106 bpm. Normal axis. Intervals within normal limits. No signs of ST elevation, ST depression or significant Q waves. No signs of ischemia.
--- NOTE | 2018-01-09 08:16 | Emergency Department Note ---
Disposition Clinical Impression: COPD exacerbation Disposition: Admitted As Inpatient Condition: Fair General Adult HPI - General Chief complaint: ED Shortness of Breath/Dyspnea Stated complaint: VERO Time Seen by Provider: 01/09/18 08:11 Source: patient Limitations: no limitations - History of Present Illness Pain Scale: 5 - Related Data Home Medications Medication Instructions Recorded Confirmed Nitroglycerin [Nitrostat] 0.4 mg SL Q5M PRN 11/22/15 01/09/18 Acetaminophen [Tylenol] 1,000 mg PO Q6HR PRN 12/20/15 01/09/18 Tiotropium [Spiriva] 18 mcg IH 0800 01/04/16 01/09/18 Albuterol Sulfate [Proair Hfa] 2 puff IH Q4H PRN 11/17/16 01/09/18 Aspirin [Lo-Dose Aspirin EC] 81 mg PO DAILY 11/17/16 01/09/18 Simethicone [Gas-X] 80 mg PO QID 12/26/16 01/09/18 Budesonide/Formoterol 160/4.5 2 puff IH BIDR 02/19/17 01/09/18 [Symbicort 160/4.5] Guaifenesin [Mucinex] 600 mg PO 199902/19/17 01/09/18 Bisacodyl [Dulcolax] 10 mg RC DAILY PRN 08/05/17 01/09/18 Docusate [Colace] 100 mg PO BID 08/05/17 01/09/18 Lactulose [Enulose] 30 ml PO DAILY PRN 08/05/17 01/09/18 Multivitamin [One Daily Essential] 1 tab PO DAILY 08/05/17 01/09/18 ALPRAZolam [Xanax 0.25 MG Tablet] 0.25 mg PO DAILY PRN 01/09/18 01/09/18 ALPRAZolam [Xanax 0.25 MG Tablet] 0.5 mg PO HS 01/09/18 01/09/18 Cetirizine HCl [All Day Allergy] 10 mg PO DAILY PRN 01/09/18 01/09/18 Clopidogrel [Plavix] 75 mg PO DAILY 01/09/18 01/09/18 Diclofenac Sodium [Voltaren] 1 appl TP DAILY PRN 01/09/18 01/09/18 GuaiFENesin Liq [Robitussin Liq] 50 - 100 mg PO Q4H PRN 01/09/18 01/09/18 Loratadine [Claritin] 10 mg PO DAILY 01/09/18 01/09/18 Metoprolol Succinate [Toprol Xl] 25 mg PO BID 01/09/18 01/09/18 Oxymetazoline [Afrin] 1 spray NS Q12HR PRN 01/09/18 01/09/18 Polyvinyl Alcohol [Artificial 2 drop BOTH EYES DAILY PRN 01/09/18 01/09/18 Tears] Rabeprazole Sodium [Aciphex] 20 mg PO BID 01/09/18 01/09/18 Trazodone HCl 50 mg PO HS 01/09/18 01/09/18 methIMAzole [Tapazole] 5 mg PO 0900,1700 01/09/18 01/09/18 Previous Rx's Medication Instructions Recorded Oxygen 1.5 l NS AD #0 02/24/17 Allergies Allergy/AdvReac Type Severity Reaction Status Date / Time acetylcysteine Allergy Severe Anaphylaxis Verified 01/09/18 07:59 ramelteon [From Rozerem] Allergy Difficulty Verified 01/09/18 07:59 Breathing Amoxicillin [From Augmentin] AdvReac Intermediate Nausea Verified 01/09/18 07:59 azithromycin [From Zithromax] AdvReac Intermediate Nausea Verified 01/09/18 07: 59 clavulanic acid AdvReac Intermediate Nausea Verified 01/09/18 07:59 [From Augmentin] dexlansoprazole AdvReac Mild Headache Verified 01/09/18 07:59 [From Dexilant] prednisone AdvReac Mild See Verified 01/09/18 07:59 Comments sertraline [From Zoloft] AdvReac Mild Depression Verified 01/09/18 07:59 Tetracycline AdvReac Mild Nausea Verified 01/09/18 07:59 Varenicline [From Chantix] AdvReac Mild Nightmare Verified 01/09/18 07:59 Past Medical History - Past Medical History Medical history: Reports: asthma, cancer, cardiomyopathy, CHF, COPD, coronary artery disease, GERD, hyperlipidemia, hypertension, myocardial infarction, osteoporosis, pulmonary embolus, thyroid disease, other Surgical history: Reports: angioplasty/stent, cancer surgery, cataract, cholecystectomy, sinus surgery Psychiatric history: Reports: anxiety, depression [employer] history: Reports: other - Social History Smoking Status: Former smoker Smokeless Tobacco Status: No Alcohol use: Reports: none Drug use: Reports: none Physical Exam - General Limitations: no limitations General appearance: alert Course Vital Signs Temperature 98.7 F 01/09/18 08:00 Pulse Rate 105 01/09/18 08:00 Respiratory Rate 24 01/09/18 08:00 Blood Pressure 143/92 01/09/18 08:00 O2 Sat by Pulse Oximetry 100 01/09/18 08:00 Temperature 97.6 F 01/09/18 11:25 Pulse Rate 102 01/09/18 11:25 Respiratory Rate 19 01/09/18 11:25 Blood Pressure 148/88 01/09/18 11:25 O2 Sat by Pulse Oximetry 96 01/09/18 11:25 Oxygen Delivery Oxygen Delivery Nasal Cannula Medical Decision Making - Lab Data Result diagrams: 01/09/18 08:14 01/09/18 08:14 Lab Results 01/09/18 01/09/18 01/09/18 Range/Units 08:14 08:14 08:14 WBC 8.8 (4.3-11.1) K/mcL RBC 4.43 (3.82-4.97) M/mcL Hgb 12.6 (11.5-15.4) g/dL Hct 38.4 (35.3-44.9) % MCV 86.7 (83.0-100.0) fL MCH 28.4 (28.0-33.3) pg MCHC 32.8 (31.6-35.5) g/dL RDW 15.1 H (11.5-14.5) % Plt Count 433 H (140-400) K/mcL MPV 8.0 L (9.4-12.4) fL Immature Gran % 0.3 (0-4) % Seg Neutrophils % 76.7 % Lymphocytes % 11.0 % Monocytes % 9.2 % Eosinophils % 2.0 % Basophils % 0.8 % Neutrophils # 6.8 (1.6-8.9) K/mcL Lymphocytes # 1.0 (0.6-4.6) K/mcL Monocytes # 0.8 (0.0-1.3) K/mcL Eosinophils # 0.2 (0.0-0.6) K/mcL Basophils # 0.1 (0.0-0.2) K/mcL Sodium 132 L (136-145) mEq/L Potassium 4.2 (3.5-5.1) mEq/L Chloride 96 L (98-107) mEq/L Carbon Dioxide 31 H (23-29) mEq/L BUN 11 (8-23) mg/dL Creatinine 0.65 (0.60-1.20) mg/dL Est GFR ( Amer) > 60 (> 60) Est GFR (Non-Af Amer) > 60 (> 60) BUN/Creatinine Ratio 17 (6-26) Glucose 112 H (70-105) mg/dL Calculated Osmolality 274 L (280-300) Lactic Acid (0.5-2.2) mmol/L Calcium 9.4 (8.6-10.3) mg/dL Troponin I < 0.03 (< 0.04) ng/mL B-Natriuretic Peptide 95 (Less than 100) pg/mL 01/09/18 Range/Units 08:36 WBC (4.3-11.1) K/mcL RBC (3.82-4.97) M/mcL Hgb (11.5-15.4) g/dL Hct (35.3-44.9) % MCV (83.0-100.0) fL MCH (28.0-33.3) pg MCHC (31.6-35.5) g/dL RDW (11.5-14.5) % Plt Count (140-400) K/mcL MPV (9.4-12.4) fL Immature Gran % (0-4) % Seg Neutrophils % % Lymphocytes % % Monocytes % % Eosinophils % % Basophils % % Neutrophils # (1.6-8.9) K/mcL Lymphocytes # (0.6-4.6) K/mcL Monocytes # (0.0-1.3) K/mcL Eosinophils # (0.0-0.6) K/mcL Basophils # (0.0-0.2) K/mcL Sodium (136-145) mEq/L Potassium (3.5-5.1) mEq/L Chloride (98-107) mEq/L Carbon Dioxide (23-29) mEq/L BUN (8-23) mg/dL Creatinine (0.60-1.20) mg/dL Est GFR ( Amer) (> 60) Est GFR (Non-Af Amer) (> 60) BUN/Creatinine Ratio (6-26) Glucose (70-105) mg/dL Calculated Osmolality (280-300) Lactic Acid 0.8 (0.5-2.2) mmol/L Calcium (8.6-10.3) mg/dL Troponin I (< 0.04) ng/mL B-Natriuretic Peptide (Less than 100) pg/mL Attestation Statement - Attestation Attestation: I examined this patient and my medical decision-making was reviewed with the AUTO DAMAGE APPRAISER/PA/Advanced Practice Nurse/Resident Physician. I agree with the documented findings, disposition and treatment plan as described except to the extent set forth below. I did see the patient is spoke with her and examined her and she does have a history of COPD and does use home oxygen and has had increasing shortness of breath with the change in color of the sputum and she is currently being treated for sinusitis with 2 different antibiotics and she denies any chest discomfort, fevers and evaluation is in progress including labs and blood work. I did review her EKG showing sinus tachycardia with a rate of 106 but without acute ischemic change except for the fact that she does have isolated T-wave inversion in lead aVL. Otherwise the patient is conversational and in no acute distress 0816
[2018-01-09] MEDS ORDERED: Albuterol 2.5 MG/3 ML NEBULIZER IH ONE (08:18)
[2018-01-09 08:54] LABS: Basophils # 0.1 K/mcL (0.0-0.2); Basophils % 0.8 %; Eosinophils # 0.2 K/mcL (0.0-0.6); Hematocrit 38.4 % (35.3-44.9); Hemoglobin 12.6 g/dL (11.5-15.4); Immature Granulocytes % 0.3 % (0-4); Mean Corpuscular HGB Conc 32.8 g/dL (31.6-35.5); Mean Corpuscular Hemoglobin 28.4 pg (28.0-33.3); Mean Corpuscular Volume 86.7 fL (83.0-100.0); Monocytes # 0.8 K/mcL (0.0-1.3); Monocytes % 9.2 %; Neutrophils # 6.8 K/mcL (1.6-8.9); Platelet Count 433 K/mcL (140-400); Red Blood Count 4.43 M/mcL (3.82-4.97); Red Cell Distribution Width 15.1 % (11.5-14.5); Segmented Neutrophils % 76.7 %
[2018-01-09 09:14] LABS: BUN/Creatinine Ratio 17 (6-26); Blood Urea Nitrogen 11 mg/dL (8-23); Calcium 9.4 mg/dL (8.6-10.3); Carbon Dioxide 31 mEq/L (23-29); Chloride 96 mEq/L (98-107); Glucose 112 mg/dL (70-105); Osmolality,Calculated 274 (280-300); Potassium 4.2 mEq/L (3.5-5.1); Sodium 132 mEq/L (136-145); eGFR For Non-African Americans > 60 (> 60)
[2018-01-09] MEDS ORDERED: Azithromycin 500 MG in D5% in Water 250 ML IVPB ONE (09:32)
[2018-01-09 09:43] LABS: Troponin I < 0.03 ng/mL (< 0.04)
[2018-01-09] MEDS ORDERED: Levofloxacin 500 MG/100 ML 500 MG/100 ML BAG IVPB STA (09:46)
[2018-01-09] MEDS ORDERED: Naloxone 0.4 MG/ML INJ IVP PRN (12:14)
[2018-01-09] MEDS ORDERED: Ipratropium/Albuterol Neb 3 ML IH PRN (12:27)
[2018-01-09] MEDS ORDERED: Albuterol 2.5 MG/3 ML NEBULIZER IH PRN (13:43)
[2018-01-09] MEDS ORDERED: Oxymetazoline Nasal SPRAY BOTTLE NS PRN (14:02)
[2018-01-09] MEDS ORDERED: NON-FORMULARY MEDICATION 1 EACH EACH (Cetirizine Hcl [All Day Allergy] 10 MG) PO PRN (14:02)
[2018-01-09] MEDS ORDERED: Nitroglycerin 0.4 MG TAB.SUBL SL PRN (14:02)
[2018-01-09] MEDS ORDERED: Bisacodyl 10 MG RECTAL SUPPOSITORY RC PRN (14:02)
[2018-01-09] MEDS ORDERED: Artificial Tears SOLN 15 ML BOTTLE BOTH EYES PRN (14:02)
[2018-01-09] MEDS ORDERED: Lactulose Oral Soln 20 GM/30 ML UDC PO PRN (14:02)
[2018-01-09] MEDS ORDERED: OXYGEN NS SCH (14:15)
[2018-01-09] MEDS: ALPRAZolam 0.25 MG TABLET PO PRN (14:35)
[2018-01-09] MEDS: Metoprolol XL (24 HR) Succ 25 MG TAB.ER.24H PO SCH ×2 (14:36→22:09)
[2018-01-09] MEDS: methIMAzole 5 MG TABLET PO SCH ×2 (14:36→18:48)
--- NOTE | 2018-01-09 14:59 | Internal Med History&Physical ---
Date of Encounter: 01/09/18 Time of Encounter: 14:57 Internal Medicine - H&P: HPI Chief complaint: Shortness of breath Admitted From: Home Plans for Post Hospital Care: Home History of present illness: Ms. Blackburn is a 72 year old female with medical history of acquired bronchomalacia , chronic respiratory failure on home oxygen, COPD, anxiety, multiple medication allergies She reports having been on antibiotics for 18 days, antibiotics discontinued 7 days ago, she presented with change in color of phlegm to green from clear, with associated worsening shortness of breath. She thinks she has a postnasal drip that is exacerbated by her acute sinusitis. She denies chest pain, she denies fever or chills, she denies cough tenderness or swelling. She feels like this is her routine COPD exacerbation. Chronic medical conditions are stable and she has been treated in the emergency room with no nebs and intravenous steroids. Evaluation she is not in any form of distress is clinically and hemodynamically stable. She will be placed on observation for COPD exacerbation. Workup in the ER is unremarkable. Chest x-ray is clear Patient reports that she is DNR/DNI. Past Med Surg Social Fam HX - Past Medical History Medical history: asthma, cancer, cardiomyopathy, CHF, COPD, coronary artery disease, GERD, hyperlipidemia, hypertension, myocardial infarction, osteoporosis , pulmonary embolus, thyroid disease, other Additional medical history: trachea dysplasia. vocal cord dysfunction Psychiatric history: anxiety, depression - Past Surgical History Surgical History: angioplasty/stent, cancer surgery, cataract, cholecystectomy, sinus surgery Additional surgical history: hemrroidectomy. cardiac stent x1 - Social History Smoking Status: Former smoker Smokeless Tobacco Status: No Alcohol use: none Drug use: none - Family History Son Living Status: Still Living Hx Family GI Disorders: Yes Hx Family Endocrine Disorder: Yes (Type 2 DM) Hx Family Neurologic Disorders: Yes (depression) Mother Living Status: Hx Family Cancer: Yes Sister Living Status: Hx Family Cardiac Disorders: Yes (Cerebrovascular accident) Hx Family Respiratory Disorders: No Hx Family Cancer: No Hx Family GI Disorders: No Hx Family Endocrine Disorder: No Hx Family Neuromuscular Disorders: No Hx Family Neurologic Disorders: No Hx Family HEENT Disorders: No Hx Family Autoimmune Disorders: No Daughter Living Status: Still Living Hx Family Cardiac Disorders: Yes (PE, DC) Hx Family Respiratory Disorders: Yes (Chronic bronchitis) Hx Family Cancer: No Hx Family GI Disorders: No Hx Family Endocrine Disorder: No Hx Family Neuromuscular Disorders: No Hx Family Neurologic Disorders: No Hx Family HEENT Disorders: No Hx Family Autoimmune Disorders: No Brother Family Member Ethnicity: Non- Living Status: Still Living Hx Family Cardiac Disorders: Yes (Coronary artery disease) Hx Family Respiratory Disorders: No Hx Family Cancer: No Hx Family GI Disorders: No Hx Family Endocrine Disorder: Yes (TYPE 2 DIABETES MELLITUS) Hx Family Neuromuscular Disorders: No Hx Family Neurologic Disorders: No Hx Family HEENT Disorders: No Hx Family Autoimmune Disorders: No Father Living Status: Hx Family Cardiac Disorders: Yes (DC) Hx Family Respiratory Disorders: No Hx Family Cancer: Yes Hx Family GI Disorders: No Hx Family Endocrine Disorder: No Hx Family Neuromuscular Disorders: No Hx Family Neurologic Disorders: No Hx Family HEENT Disorders: No Hx Family Autoimmune Disorders: No Internal Medicine - H&P: Meds Nitroglycerin [Nitrostat] 0.4 mg SL Q5M PRN 11/22/15 [History] Acetaminophen [Tylenol] 1,000 mg PO Q6HR PRN 12/20/15 [History] Tiotropium [Spiriva] 18 mcg IH 0800 01/04/16 [History] Albuterol Sulfate [Proair Hfa] 2 puff IH Q4H PRN 11/17/16 [History] Aspirin [Lo-Dose Aspirin EC] 81 mg PO DAILY 11/17/16 [History] Simethicone [Gas-X] 80 mg PO QID 12/26/16 [History] Budesonide/Formoterol 160/4.5 [Symbicort 160/4.5] 2 puff IH BIDR 02/19/17 [ History] Guaifenesin [Mucinex] 600 mg PO 199902/19/17 [History] Oxygen 1.5 l NS AD #0 02/24/17 [Rx] Bisacodyl [Dulcolax] 10 mg RC DAILY PRN 08/05/17 [History] Docusate [Colace] 100 mg PO BID 08/05/17 [History] Lactulose [Enulose] 30 ml PO DAILY PRN 08/05/17 [History] Multivitamin [One Daily Essential] 1 tab PO DAILY 08/05/17 [History] ALPRAZolam [Xanax 0.25 MG Tablet] 0.25 mg PO DAILY PRN 01/09/18 [History] ALPRAZolam [Xanax 0.25 MG Tablet] 0.5 mg PO HS 01/09/18 [History] Cetirizine HCl [All Day Allergy] 10 mg PO DAILY PRN 01/09/18 [History] Clopidogrel [Plavix] 75 mg PO DAILY 01/09/18 [History] Diclofenac Sodium [Voltaren] 1 appl TP DAILY PRN 01/09/18 [History] GuaiFENesin Liq [Robitussin Liq] 50 - 100 mg PO Q4H PRN 01/09/18 [History] Loratadine [Claritin] 10 mg PO DAILY 01/09/18 [History] Metoprolol Succinate [Toprol Xl] 25 mg PO BID 01/09/18 [History] Oxymetazoline [Afrin] 1 spray NS Q12HR PRN 01/09/18 [History] Polyvinyl Alcohol [Artificial Tears] 2 drop BOTH EYES DAILY PRN 01/09/18 [ History] Rabeprazole Sodium [Aciphex] 20 mg PO BID 01/09/18 [History] Trazodone HCl 50 mg PO HS 01/09/18 [History] methIMAzole [Tapazole] 5 mg PO 0900,1700 01/09/18 [History] 3 Allergy/AdvReac Type Severity Reaction Status Date / Time acetylcysteine Allergy Severe Anaphylaxis Verified 01/09/18 07:59 ramelteon [From Rozerem] Allergy Difficulty Verified 01/09/18 07:59 Breathing Amoxicillin [From Augmentin] AdvReac Intermediate Nausea Verified 01/09/18 07:59 azithromycin [From Zithromax] AdvReac Intermediate Nausea Verified 01/09/18 07: 59 clavulanic acid AdvReac Intermediate Nausea Verified 01/09/18 07:59 [From Augmentin] dexlansoprazole AdvReac Mild Headache Verified 01/09/18 07:59 [From Dexilant] prednisone AdvReac Mild See Verified 01/09/18 07:59 Comments sertraline [From Zoloft] AdvReac Mild Depression Verified 01/09/18 07:59 Tetracycline AdvReac Mild Nausea Verified 01/09/18 07:59 Varenicline [From Chantix] AdvReac Mild Nightmare Verified 01/09/18 07:59 All Systems PM: A 10-system review of systems was performed and is negative for pertinent findings except as documented above in the HPI. - Constitutional Constitutional: as per HPI - EENT Eyes: as per HPI Ears: as per HPI Nose, mouth and throat: as per HPI - Cardiovascular Cardiovascular ROS IM: as per HPI - Respiratory Respiratory: as per HPI - Gastrointestinal Gastrointestinal: as per HPI - Genitourinary Genitourinary: as per HPI - Musculoskeletal Musculoskeletal ROS IM: as per HPI - Integumentary Integumentary IM: as per HPI - Neurological Neurological ROS: as per HPI - Hematologic/Lymphatic Hematologic/Lymphatic: as per HPI - Constitutional Vitals: Temp Pulse Resp BP Pulse Ox 97.6 F 102 19 148/88 96 01/09/18 11:25 01/09/18 11:25 01/09/18 11:25 01/09/18 11:25 01/09/18 11:25 General appearance: Present: cachectic, A&O X 3, pleasant, no acute distress Exam: see below - Head Head exam: Present: atraumatic, normocephalic - Eye Eye exam: Present: PERRL, conjuntiva pink, sclera anicteric Pupils: Present: PERRL - Neck Neck exam general surgery: Present: supple, trachea midline. Absent: lymphadenopathy - Respiratory Respiratory exam: Present: decreased breath sounds, wheezes. Absent: accessory muscle use, rales, rhonchi - Cardiovascular Cardiovascular exam: Present: RRR, +S1, +S2. Absent: diastolic murmur, gallop, rubs, systolic murmur - GI/Abdominal GI/Abdominal exam: Present: normal bowel sounds, soft, no peritoneal signs. Absent: distended, tenderness - Extremities Exam Extremities exam: Present: warm, radial pulses palpable and symmetrical. Absent : calf tenderness, cyanotic, pedal edema - Neurological Exam Neurological exam: Present: CN II-XII intact, oriented X3, no focal deficits. Absent: pronater drift, facial droop, speech deficit - Skin Skin exam: Present: dry, intact Internal Med - H&P Results - Labs CBC & Chem 7: 01/09/18 08:14 01/09/18 08:14 - Assessment and plan (1) Acute exacerbation of chronic obstructive airways disease Current Visit: Yes Status: Acute Assessment and plan: continue solumedrol, duo nebs, Levaquin by mouth. Send sputum culture. (2) Anxiety Current Visit: Yes Status: Chronic Assessment and plan: Continue home medications. (3) CAD (coronary artery disease) Current Visit: Yes Status: Chronic Assessment and plan: Continue home medications. Qualifiers: Coronary Disease-Associated Artery/Lesion type: [place] artery [place] vs. transplanted heart: [place] heart Associated angina: without angina Qualified Code(s): I25.10 - Atherosclerotic heart disease of [place] coronary artery without angina pectoris (4) CHF (congestive heart failure) Current Visit: Yes Status: Chronic Assessment and plan: Euvolemic at this time. Continue home medications. Qualifiers: Heart failure type: diastolic Heart failure chronicity: chronic Qualified Code(s): I50.32 - Chronic diastolic (congestive) heart failure (5) Chronic hypoxemic respiratory failure Current Visit: Yes Status: Chronic Assessment and plan: continue O2 by nasal canula (6) DVT prophylaxis Current Visit: Yes Status: Acute Assessment and plan: Subcutaneous heparin (7) GERD (gastroesophageal reflux disease) Current Visit: Yes Status: Chronic Assessment and plan: continue home meds Qualifiers: Esophagitis presence: without esophagitis Qualified Code(s): K21.9 - Gastro -esophageal reflux disease without esophagitis (8) Hyperlipidemia Current Visit: Yes Status: Chronic Assessment and plan: continue home meds Qualifiers: Hyperlipidemia type: unspecified Qualified Code(s): E78.5 - Hyperlipidemia , unspecified (9) Hypertension Current Visit: Yes Status: Chronic Assessment and plan: continue home meds Qualifiers: Hypertension type: essential hypertension Qualified Code(s): I10 - Essential (primary) hypertension (10) NUBIA (obstructive sleep apnea) Current Visit: Yes Status: Chronic Assessment and plan: CPAP at bedtime (11) Tracheomalacia Current Visit: Yes Status: Chronic Assessment and plan: Chronic and stable. - Time Spent With Patient Total time spent is greater than 50% in coordination of care (as documented) at patient's floor/unit and/or counseling patient:
[2018-01-09] MEDS: GuaiFENesin Liq 200 MG/10 ML UDC PO PRN ×3 (15:30→23:32)
[2018-01-09] MEDS: Budesonide/Formoterol 160/4.5 1 PUFF INH IH SCH ×2 (16:12→21:22)
[2018-01-09] MEDS: Ipratropium/Albuterol Neb 3 ML IH SCH ×2 (16:12→16:13)
[2018-01-09] MEDS ORDERED: methIMAzole 5 MG TABLET PO SCH (17:00)
[2018-01-09] MEDS: Simethicone 80 MG TAB.CHEW PO SCH ×2 (18:43→22:09)
[2018-01-09] MEDS: Albuterol 2.5 MG/3 ML NEBULIZER IH SCH (21:22)
[2018-01-09] MEDS: ALPRAZolam 0.5 MG TABLET PO SCH (21:54)
[2018-01-10] MEDS: GuaiFENesin Liq 200 MG/10 ML UDC PO PRN ×3 (04:09→14:12)
[2018-01-10] MEDS: *HR* Enoxaparin 40 MG/0.4 ML SYRINGE SQ SCH (04:09)
[2018-01-10] MEDS: Albuterol 2.5 MG/3 ML NEBULIZER IH SCH ×4 (04:17→22:13)
[2018-01-10 04:30] LABS: Basophils % 0.3 %; Hematocrit 32.9 % (35.3-44.9); Immature Granulocytes % 0.2 % (0-4); Lymphocytes # 1.1 K/mcL (0.6-4.6); Lymphocytes % 17.2 %; Mean Corpuscular HGB Conc 33.4 g/dL (31.6-35.5); Mean Corpuscular Hemoglobin 27.8 pg (28.0-33.3); Mean Corpuscular Volume 83.3 fL (83.0-100.0); Mean Platelet Volume 7.9 fL (9.4-12.4); Monocytes # 0.7 K/mcL (0.0-1.3); Neutrophils # 4.3 K/mcL (1.6-8.9); Platelet Count 377 K/mcL (140-400); Red Blood Count 3.95 M/mcL (3.82-4.97); Segmented Neutrophils % 70.3 %
[2018-01-10 04:53] LABS: BUN/Creatinine Ratio 19 (6-26); Blood Urea Nitrogen 12 mg/dL (8-23); Calcium 9.4 mg/dL (8.6-10.3); Carbon Dioxide 29 mEq/L (23-29); Chloride 98 mEq/L (98-107); Glucose 109 mg/dL (70-105); Osmolality,Calculated 276 (280-300); Potassium 4.1 mEq/L (3.5-5.1); Sodium 133 mEq/L (136-145); eGFR For Non-African Americans > 60 (> 60)
[2018-01-10] MEDS ORDERED: Tiotropium 18 MCG inhalation IH SCH (08:00)
[2018-01-10] MEDS: Simethicone 80 MG TAB.CHEW PO SCH ×4 (08:37→21:21)
[2018-01-10] MEDS: Aspirin Enteric Coated 81 MG Tablet PO SCH (08:37)
[2018-01-10] MEDS: methIMAzole 5 MG TABLET PO SCH ×2 (08:37→17:45)
[2018-01-10] MEDS: levoFLOXacin 500 MG TABLET PO SCH (08:37)
[2018-01-10] MEDS: Metoprolol XL (24 HR) Succ 25 MG TAB.ER.24H PO SCH ×2 (08:38→21:21)
[2018-01-10] MEDS: Multivit/Ca/Min/Fe/FA 1 TAB TABLET PO SCH (08:38)
[2018-01-10] MEDS: Loratadine 10 MG TABLET PO SCH (08:38)
[2018-01-10] MEDS: MethylPREDNISolone 40 MG/ML VIAL IVP SCH (08:39)
[2018-01-10] MEDS: Tiotropium 18 MCG inhalation IH SCH (09:14)
[2018-01-10] MEDS: Budesonide/Formoterol 160/4.5 1 PUFF INH IH SCH ×2 (09:14→22:11)
--- NOTE | 2018-01-10 10:41 | Internal Med Progress Note ---
Hospitalist Progress Note - Encounter Date of Encounter: 01/10/18 Time of Encounter: 10:41 - Subjective Interval History: She has no new complains and reports some improvement - Exam Vitals: Temp Pulse Resp BP Pulse Ox 98.7 F 83 16 150/77 99 01/10/18 06:43 01/10/18 06:43 01/10/18 09:15 01/10/18 06:43 01/10/18 09:15 Exam: Gen.: No acute distress, alert and oriented 3 ENT: Mucosal membranes moist Respiratory: Lungs are clear to auscultation bilaterally without any wheezing rhonchi or rales Cardiovascular: Normal S1 and S2 regular rate rhythm no murmurs rubs or gallops Abdomen: Soft, non-tender and non-distended with positive bowel sounds Extremities: No lower extremity edema Neuro: AAOX3, no speech deficits, no facial paralysis, moves all limbs spontaneously Skin: No rash/jaundice - Assessment and Plan (1) Acute exacerbation of chronic obstructive airways disease Current Visit: Yes Status: Acute Assessment and Plan: continue solumedrol, duo nebs, Levaquin by mouth. Send sputum culture. (2) Anxiety Current Visit: Yes Status: Chronic Assessment and Plan: Continue home medications. (3) CAD (coronary artery disease) Current Visit: Yes Status: Chronic Assessment and Plan: Continue home medications. (4) CHF (congestive heart failure) Current Visit: Yes Status: Chronic Assessment and Plan: Euvolemic at this time. Continue home medications. (5) Chronic hypoxemic respiratory failure Current Visit: Yes Status: Chronic Assessment and Plan: continue O2 by nasal canula (6) DVT prophylaxis Current Visit: Yes Status: Acute Assessment and Plan: Subcutaneous heparin (7) GERD (gastroesophageal reflux disease) Current Visit: Yes Status: Chronic Assessment and Plan: continue home meds (8) Hyperlipidemia Current Visit: Yes Status: Chronic Assessment and Plan: continue home meds (9) Hypertension Current Visit: Yes Status: Chronic Assessment and Plan: continue home meds (10) NUBIA (obstructive sleep apnea) Current Visit: Yes Status: Chronic Assessment and Plan: CPAP at bedtime (11) Tracheomalacia Current Visit: Yes Status: Chronic Assessment and Plan: Chronic and stable. - Time Spent with Patient Total time spent is greater than 50% in coordination of care (as documented) at patient's floor/unit and/or counseling patient: Plan of Care Discussed with: patient Internal Medicine: Result - Labs CBC & Chem 7: 01/10/18 04:08 01/10/18 04:08 Labs: Short CBC 01/10/18 Range/Units 04:08 WBC 6.1 (4.3-11.1) K/mcL Hgb 11.0 L D (11.5-15.4) g/dL Hct 32.9 L (35.3-44.9) % Plt Count 377 (140-400) K/mcL Neutrophils # 4.3 (1.6-8.9) K/mcL BMP 01/10/18 04:08 Sodium 133 L Potassium 4.1 Chloride 98 Carbon Dioxide 29 BUN 12 Creatinine 0.62 Glucose 109 H Calcium 9.4 Consult Discharge Plan - Plan Referrals: Paula Casiano, ENVIRONMENTAL LEAD [Primary Care Provider] - (3) CAD (coronary artery disease) Qualifiers: Coronary Disease-Associated Artery/Lesion type: [place] artery [place] vs. transplanted heart: [place] heart Associated angina: without angina Qualified Code(s): I25.10 - Atherosclerotic heart disease of [place] coronary artery without angina pectoris (4) CHF (congestive heart failure) Qualifiers: Heart failure type: diastolic Heart failure chronicity: chronic Qualified Code(s): I50.32 - Chronic diastolic (congestive) heart failure (7) GERD (gastroesophageal reflux disease) Qualifiers: Esophagitis presence: without esophagitis Qualified Code(s): K21.9 - Gastro- esophageal reflux disease without esophagitis (8) Hyperlipidemia Qualifiers: Hyperlipidemia type: unspecified Qualified Code(s): E78.5 - Hyperlipidemia, unspecified (9) Hypertension Qualifiers: Hypertension type: essential hypertension Qualified Code(s): I10 - Essential (primary) hypertension
[2018-01-10] MEDS: ALPRAZolam 0.25 MG TABLET PO PRN (16:45)
[2018-01-10] MEDS: ALPRAZolam 0.5 MG TABLET PO SCH (21:21)
[2018-01-11] MEDS: Albuterol 2.5 MG/3 ML NEBULIZER IH SCH ×2 (05:00→10:14)
[2018-01-11] MEDS: *HR* Enoxaparin 40 MG/0.4 ML SYRINGE SQ SCH (06:39)
[2018-01-11 07:28] VITALS: BP 151/83
[2018-01-11] MEDS: GuaiFENesin Liq 200 MG/10 ML UDC PO PRN (07:31)
[2018-01-11] MEDS: Loratadine 10 MG TABLET PO SCH (07:32)
[2018-01-11] MEDS: Multivit/Ca/Min/Fe/FA 1 TAB TABLET PO SCH (07:33)
[2018-01-11 07:43] LABS: Basophils % 0.5 %; Eosinophils # 0.1 K/mcL (0.0-0.6); Eosinophils % 0.7 %; Hematocrit 37.7 % (35.3-44.9); Hemoglobin 12.5 g/dL (11.5-15.4); Immature Granulocytes % 0.3 % (0-4); Lymphocytes % 26.7 %; Mean Corpuscular HGB Conc 33.2 g/dL (31.6-35.5); Mean Corpuscular Hemoglobin 28.2 pg (28.0-33.3); Mean Corpuscular Volume 84.9 fL (83.0-100.0); Monocytes % 13.1 %; Neutrophils # 4.3 K/mcL (1.6-8.9); Platelet Count 460 K/mcL (140-400); Red Blood Count 4.44 M/mcL (3.82-4.97); Segmented Neutrophils % 58.7 %
[2018-01-11 08:05] LABS: BUN/Creatinine Ratio 19 (6-26); Blood Urea Nitrogen 13 mg/dL (8-23); Calcium 9.6 mg/dL (8.6-10.3); Carbon Dioxide 30 mEq/L (23-29); Chloride 97 mEq/L (98-107); Glucose 89 mg/dL (70-105); Osmolality,Calculated 278 (280-300); Sodium 134 mEq/L (136-145); eGFR For Non-African Americans > 60 (> 60)
[2018-01-11] MEDS: Simethicone 80 MG TAB.CHEW PO SCH (09:09)
[2018-01-11] MEDS: Aspirin Enteric Coated 81 MG Tablet PO SCH (09:09)
[2018-01-11] MEDS: methIMAzole 5 MG TABLET PO SCH (09:09)
[2018-01-11] MEDS: MethylPREDNISolone 40 MG/ML VIAL IVP SCH (09:10)
[2018-01-11] MEDS: levoFLOXacin 500 MG TABLET PO SCH (09:10)
[2018-01-11] MEDS: Metoprolol XL (24 HR) Succ 25 MG TAB.ER.24H PO SCH (09:10)
--- NOTE | 2018-01-11 09:32 | Discharge Summary ---
- NOTES TO OUTPATIENT PROVIDER Notes to Outpatient Provider: Admitted to obs for COPDE, discharged on prednisone and levaquin for 3 more days. follow up with PCP Date of Encounter: 01/11/18 Time of Encounter: 09:31 - Discharge Diagnosis (1) Acute exacerbation of chronic obstructive airways disease Priority: Primary Status: Acute (2) Anxiety Priority: Secondary Status: Chronic (3) CAD (coronary artery disease) Priority: Secondary Status: Chronic Qualifiers: Coronary Disease-Associated Artery/Lesion type: pokagon artery [place] vs. transplanted heart: pokagon heart Associated angina: without angina Qualified Code(s): I25.10 - Atherosclerotic heart disease of pok[place] coronary artery without angina pectoris (4) CHF (congestive heart failure) Priority: Secondary Status: Chronic Qualifiers: Heart failure type: diastolic Heart failure chronicity: chronic Qualified Code(s): I50.32 - Chronic diastolic (congestive) heart failure (5) Chronic hypoxemic respiratory failure Priority: Secondary Status: Chronic (6) DVT prophylaxis Priority: Primary Status: Resolved (7) GERD (gastroesophageal reflux disease) Priority: Secondary Status: Chronic Qualifiers: Esophagitis presence: without esophagitis Qualified Code(s): K21.9 - Gastro -esophageal reflux disease without esophagitis (8) Hyperlipidemia Priority: Secondary Status: Chronic Qualifiers: Hyperlipidemia type: unspecified Qualified Code(s): E78.5 - Hyperlipidemia , unspecified (9) Hypertension Priority: Secondary Status: Chronic Qualifiers: Hypertension type: essential hypertension Qualified Code(s): I10 - Essential (primary) hypertension (10) NUBIA (obstructive sleep apnea) Priority: Secondary Status: Chronic (11) Tracheomalacia Priority: Secondary Status: Chronic Hospital course: Ms. Blackburn is a 72 year old female with chronic renal failure on O2, COPD, tracheobronchomalacia, Anxiety who presented to the ER after having finished an 18 days course of antibiotics, complaining of shortness of breath. Work up was unremarkable,inclduing CXR, O2 requirement was at baseline, she was placed on observation for COPDE due to diffuse wheezing on arrival. She was treated with nebs, steroids, and levaquin She has been improving progressively and this a.m, she has no new complains and is clinically stable to be discharged home She requested only 30mg prednisone po as higher doses increased her anxiety in the past, she is also discharged also on po levaquin for 3 more days Follow up with PCP Discharge discussed with: patient, nurse - Time Spent with Patient Total time spent providing and/or coordinating discharge services: Less than 30 minutes - Discharge Medications Prescriptions: Levofloxacin [Levaquin] 500 mg PO DAILY #3 tablet PredniSONE [Deltasone] 30 mg PO DAILY 4 Days #6 tablet Home Medications: Nitroglycerin [Nitrostat] 0.4 mg SL Q5M PRN 11/22/15 [History] Acetaminophen [Tylenol] 1,000 mg PO Q6HR PRN 12/20/15 [History] Tiotropium [Spiriva] 18 mcg IH 0800 01/04/16 [History] Albuterol Sulfate [Proair Hfa] 2 puff IH Q4H PRN 11/17/16 [History] Aspirin [Lo-Dose Aspirin EC] 81 mg PO DAILY 11/17/16 [History] Simethicone [Gas-X] 80 mg PO QID 12/26/16 [History] Budesonide/Formoterol 160/4.5 [Symbicort 160/4.5] 2 puff IH BIDR 02/19/17 [ History] Guaifenesin [Mucinex] 600 mg PO 199902/19/17 [History] Oxygen 1.5 l NS AD #0 02/24/17 [Rx] Bisacodyl [Dulcolax] 10 mg RC DAILY PRN 08/05/17 [History] Docusate [Colace] 100 mg PO BID 08/05/17 [History] Lactulose [Enulose] 30 ml PO DAILY PRN 08/05/17 [History] Multivitamin [One Daily Essential] 1 tab PO DAILY 08/05/17 [History] ALPRAZolam [Xanax 0.25 MG Tablet] 0.25 mg PO DAILY PRN 01/09/18 [History] ALPRAZolam [Xanax 0.25 MG Tablet] 0.5 mg PO HS 01/09/18 [History] Cetirizine HCl [All Day Allergy] 10 mg PO DAILY PRN 01/09/18 [History] Clopidogrel [Plavix] 75 mg PO DAILY 01/09/18 [History] Diclofenac Sodium [Voltaren] 1 appl TP DAILY PRN 01/09/18 [History] GuaiFENesin Liq [Robitussin Liq] 50 - 100 mg PO Q4H PRN 01/09/18 [History] Loratadine [Claritin] 10 mg PO DAILY 01/09/18 [History] Metoprolol Succinate [Toprol Xl] 25 mg PO BID 01/09/18 [History] Oxymetazoline [Afrin] 1 spray NS Q12HR PRN 01/09/18 [History] Polyvinyl Alcohol [Artificial Tears] 2 drop BOTH EYES DAILY PRN 01/09/18 [ History] Rabeprazole Sodium [Aciphex] 20 mg PO BID 01/09/18 [History] Trazodone HCl 50 mg PO HS 01/09/18 [History] methIMAzole [Tapazole] 5 mg PO 0900,1700 01/09/18 [History] Levofloxacin [Levaquin] 500 mg PO DAILY #3 tablet 01/11/18 [Rx] PredniSONE [Deltasone] 30 mg PO DAILY 4 Days #6 tablet 01/11/18 [Rx] Allergies/Adverse Reactions: 3 Allergy/AdvReac Type Severity Reaction Status Date / Time acetylcysteine Allergy Severe Anaphylaxis Verified 01/09/18 07:59 ramelteon [From Rozerem] Allergy Difficulty Verified 01/09/18 07:59 Breathing Amoxicillin [From Augmentin] AdvReac Intermediate Nausea Verified 01/09/18 07:59 azithromycin [From Zithromax] AdvReac Intermediate Nausea Verified 01/09/18 07: 59 clavulanic acid AdvReac Intermediate Nausea Verified 01/09/18 07:59 [From Augmentin] dexlansoprazole AdvReac Mild Headache Verified 01/09/18 07:59 [From Dexilant] prednisone AdvReac Mild See Verified 01/09/18 07:59 Comments sertraline [From Zoloft] AdvReac Mild Depression Verified 01/09/18 07:59 Tetracycline AdvReac Mild Nausea Verified 01/09/18 07:59 Varenicline [From Chantix] AdvReac Mild Nightmare Verified 01/09/18 07:59 Date of admission: 01/09/18 10:11 Primary care physician: Paula Casiano SALVAGE ENGINEER Discharging clinician: Jaspreet Brown Anticipated date of discharge: 01/11/18 - Constitutional Vitals: Temp Pulse Resp BP Pulse Ox 98.8 F 82 16 151/83 98 01/11/18 07:27 01/11/18 07:27 01/11/18 07:27 01/11/18 07:27 01/11/18 07:27 General appearance: Present: cachectic, A&O X 3, pleasant, no acute distress Exam: see below - Head Head exam: Present: atraumatic, normocephalic - Eye Eye exam: Present: PERRL, conjuntiva pink, sclera anicteric Pupils: Present: PERRL - Neck Neck exam general surgery: Present: supple, trachea midline. Absent: lymphadenopathy - Respiratory Respiratory exam: Present: CTAB. Absent: accessory muscle use, rales, rhonchi, wheezes - Cardiovascular Cardiovascular exam: Present: RRR, +S1, +S2. Absent: diastolic murmur, gallop, rubs, systolic murmur - GI/Abdominal GI/Abdominal exam: Present: normal bowel sounds, soft, no peritoneal signs. Absent: distended, tenderness - Extremities Exam Extremities exam: Present: warm, radial pulses palpable and symmetrical. Absent : calf tenderness, cyanotic, pedal edema - Neurological Exam Neurological exam: Present: CN II-XII intact, oriented X3, no focal deficits. Absent: pronater drift, facial droop, speech deficit - Skin Skin exam: Present: dry, intact - Patient Status Disposition: Home, Self-Care Condition: Good Functional capacity at discharge: independent ambulation Overall status at discharge: patient is progressing back to baseline - Discharge Instructions Instructions: Chronic Obstructive Pulmonary Disease (DC) Follow Up With: Paula Casiano SALVAGE ENGINEER [Primary Care Provider] - - Diet and Activity Activity: resume usual activities as tolerated, wear oxygen at all times Diet: low salt diet
--- NOTE | 2018-01-11 09:36 | Physician Discharge Referral ---
Home Health/Hosp Referral Info Transfer to: Home Health Attending Provider: Jeanette Brown Provider in Charge Post Discharge: PCP - Diagnosis (1) Acute exacerbation of chronic obstructive airways disease Priority: Primary Status: Acute (2) Anxiety Priority: Secondary Status: Chronic (3) CAD (coronary artery disease) Priority: Secondary Status: Chronic (4) CHF (congestive heart failure) Priority: Secondary Status: Chronic (5) Chronic hypoxemic respiratory failure Priority: Secondary Status: Chronic (6) DVT prophylaxis Priority: Primary Status: Resolved (7) GERD (gastroesophageal reflux disease) Priority: Secondary Status: Chronic (8) Hyperlipidemia Priority: Secondary Status: Chronic (9) Hypertension Priority: Secondary Status: Chronic (10) NUBIA (obstructive sleep apnea) Priority: Secondary Status: Chronic (11) Tracheomalacia Priority: Secondary Status: Chronic - Respiratory Orders Oxygen / L per min Smoking Cessation: Smoking cessation has been advised. For more information, call the [employer] Tobacco Quit Line at 0-064-CIWJ-NOW. - Diet/Nutrition Diet/Nutrition Orders: Cardiac - Activity Activity Orders: Up ad tanja - Services Needed Following services are medically necessary services: Nursing, Home Health Aide - Transfer Medications Home Medications: Nitroglycerin [Nitrostat] 0.4 mg SL Q5M PRN 11/22/15 [History] Acetaminophen [Tylenol] 1,000 mg PO Q6HR PRN 12/20/15 [History] Tiotropium [Spiriva] 18 mcg IH 0800 01/04/16 [History] Albuterol Sulfate [Proair Hfa] 2 puff IH Q4H PRN 11/17/16 [History] Aspirin [Lo-Dose Aspirin EC] 81 mg PO DAILY 11/17/16 [History] Simethicone [Gas-X] 80 mg PO QID 12/26/16 [History] Budesonide/Formoterol 160/4.5 [Symbicort 160/4.5] 2 puff IH BIDR 02/19/17 [ History] Guaifenesin [Mucinex] 600 mg PO 199902/19/17 [History] Oxygen 1.5 l NS AD #0 02/24/17 [Rx] Bisacodyl [Dulcolax] 10 mg RC DAILY PRN 08/05/17 [History] Docusate [Colace] 100 mg PO BID 08/05/17 [History] Lactulose [Enulose] 30 ml PO DAILY PRN 08/05/17 [History] Multivitamin [One Daily Essential] 1 tab PO DAILY 08/05/17 [History] ALPRAZolam [Xanax 0.25 MG Tablet] 0.25 mg PO DAILY PRN 01/09/18 [History] ALPRAZolam [Xanax 0.25 MG Tablet] 0.5 mg PO HS 01/09/18 [History] Cetirizine HCl [All Day Allergy] 10 mg PO DAILY PRN 01/09/18 [History] Clopidogrel [Plavix] 75 mg PO DAILY 01/09/18 [History] Diclofenac Sodium [Voltaren] 1 appl TP DAILY PRN 01/09/18 [History] GuaiFENesin Liq [Robitussin Liq] 50 - 100 mg PO Q4H PRN 01/09/18 [History] Loratadine [Claritin] 10 mg PO DAILY 01/09/18 [History] Metoprolol Succinate [Toprol Xl] 25 mg PO BID 01/09/18 [History] Oxymetazoline [Afrin] 1 spray NS Q12HR PRN 01/09/18 [History] Polyvinyl Alcohol [Artificial Tears] 2 drop BOTH EYES DAILY PRN 01/09/18 [ History] Rabeprazole Sodium [Aciphex] 20 mg PO BID 01/09/18 [History] Trazodone HCl 50 mg PO HS 01/09/18 [History] methIMAzole [Tapazole] 5 mg PO 0900,1700 01/09/18 [History] Allergies/Adverse Reactions: 3 Allergy/AdvReac Type Severity Reaction Status Date / Time acetylcysteine Allergy Severe Anaphylaxis Verified 01/09/18 07:59 ramelteon [From Rozerem] Allergy Difficulty Verified 01/09/18 07:59 Breathing Amoxicillin [From Augmentin] AdvReac Intermediate Nausea Verified 01/09/18 07:59 azithromycin [From Zithromax] AdvReac Intermediate Nausea Verified 01/09/18 07: 59 clavulanic acid AdvReac Intermediate Nausea Verified 01/09/18 07:59 [From Augmentin] dexlansoprazole AdvReac Mild Headache Verified 01/09/18 07:59 [From Dexilant] prednisone AdvReac Mild See Verified 01/09/18 07:59 Comments sertraline [From Zoloft] AdvReac Mild Depression Verified 01/09/18 07:59 Tetracycline AdvReac Mild Nausea Verified 01/09/18 07:59 Varenicline [From Chantix] AdvReac Mild Nightmare Verified 01/09/18 07:59 Certification: Further, I certify that my clinical findings support that this patient is homebound (i.e. absences from home require considerable and taxing effort and are for medical reasons or zoroastrian services or infrequently or short duration when for other reasons) because: Homebound Reason: Patient requires assistance of a person or device to safely leave home Attestation: My signature below is to certify that this patient is under my care and that I, or nurse practitioner, or a physician's post production assistant working with me, has a face-to -face encounter with this patient.
[2018-01-11] MEDS: Tiotropium 18 MCG inhalation IH SCH (10:12)
[2018-01-11] MEDS: Budesonide/Formoterol 160/4.5 1 PUFF INH IH SCH (10:13)
--- NOTE | 2018-01-11 14:58 | Electrocardiograph Report ---
[facility] Test Date: 2018-01-09 Pat Name: Anuradha Blackburn Department: [id number] Room: 2A Gender: F Director Of Student Affairs: : 1945 Requested By: Bernabe Christian Order Number: [id number] Reading MD: Chris Bloom Measurements Intervals [place] Rate: 106 P: 85 WI: 164 QRS: 65 QRSD: 86 T: 83 QT: 349 QTc: 464 Interpretive Statements Sinus tachycardia SAMSON, consider biatrial enlargement Electronically Signed On 01-11-2018 14:56:45 EDT by Chris Bloom
== END 2018-01-11 11:33 | disposition home or self-care (01) ==
LOC: EMEROOARM 07:55 → 2ANU 07:55 → SUATTDRO 10:11 → 2ANU 10:50
PROVIDERS: ADMIT Internal Medicine; ATTEND Internal Medicine

== ENCOUNTER 2018-01-28 15:21 | Inpatient (IN) ==
--- NOTE | 2018-01-28 15:37 | Emergency Department Note ---
Disposition Clinical Impression: Tracheomalacia, COPD exacerbation Disposition: Admitted As Inpatient Condition: Fair Referrals: Paula Casiano OCCUPATIONAL THERAPY SUPERVISOR [Primary Care Provider] - Forms: ED Satisfaction Letter Time of Disposition: 17:42 SOB HPI - General Chief Complaint: ED Shortness of Breath/Dyspnea Stated Complaint: VERO Time Seen by Provider: 01/28/18 15:33 Source: patient, EMS Limitations: no limitations Nursing Notes Reviewed: Yes Vital Signs Reviewed: Yes - History of Present Illness Patient presents to the ED if the chief complaint of shortness of breath. Started couple days ago. No fever or chills. States she has a history of COPD and tracheomalacia. States that she called EMS and she cannot get breathing treatments via facemask and needs BiPAP. States that she requests BiPAP frequently when she gets feeling this bad. Denies any chest pain. Does have some epigastric abdominal pain which she states is chronic and associated with her reflux. Saw her GI doctor yesterday and they changed her medication list states, not helping. No pain or swelling in her legs. No rash. - Related Data Home Medications Medication Instructions Recorded Confirmed Nitroglycerin [Nitrostat] 0.4 mg SL Q5M PRN 11/22/15 01/09/18 Acetaminophen [Tylenol] 1,000 mg PO Q6HR PRN 12/20/15 01/09/18 Tiotropium [Spiriva] 18 mcg IH 0800 01/04/16 01/09/18 Albuterol Sulfate [Proair Hfa] 2 puff IH Q4H PRN 11/17/16 01/09/18 Aspirin [Lo-Dose Aspirin EC] 81 mg PO DAILY 11/17/16 01/09/18 Simethicone [Gas-X] 80 mg PO QID 12/26/16 01/09/18 Budesonide/Formoterol 160/4.5 2 puff IH BIDR 02/19/17 01/09/18 [Symbicort 160/4.5] Guaifenesin [Mucinex] 600 mg PO 199902/19/17 01/09/18 Bisacodyl [Dulcolax] 10 mg RC DAILY PRN 08/05/17 01/09/18 Docusate [Colace] 100 mg PO BID 08/05/17 01/09/18 Lactulose [Enulose] 30 ml PO DAILY PRN 08/05/17 01/09/18 Multivitamin [One Daily Essential] 1 tab PO DAILY 08/05/17 01/09/18 ALPRAZolam [Xanax 0.25 MG Tablet] 0.25 mg PO DAILY PRN 01/09/18 01/09/18 ALPRAZolam [Xanax 0.25 MG Tablet] 0.5 mg PO HS 01/09/18 01/09/18 Cetirizine HCl [All Day Allergy] 10 mg PO DAILY PRN 01/09/18 01/09/18 Clopidogrel [Plavix] 75 mg PO DAILY 01/09/18 01/09/18 Diclofenac Sodium [Voltaren] 1 appl TP DAILY PRN 01/09/18 01/09/18 GuaiFENesin Liq [Robitussin Liq] 50 - 100 mg PO Q4H PRN 01/09/18 01/09/18 Loratadine [Claritin] 10 mg PO DAILY 01/09/18 01/09/18 Metoprolol Succinate [Toprol Xl] 25 mg PO BID 01/09/18 01/09/18 Oxymetazoline [Afrin] 1 spray NS Q12HR PRN 01/09/18 01/09/18 Polyvinyl Alcohol [Artificial 2 drop BOTH EYES DAILY PRN 01/09/18 01/09/18 Tears] Rabeprazole Sodium [Aciphex] 20 mg PO BID 01/09/18 01/09/18 Trazodone HCl 50 mg PO HS 01/09/18 01/09/18 methIMAzole [Tapazole] 5 mg PO 0900,1700 01/09/18 01/09/18 Previous Rx's Medication Instructions Recorded Oxygen 1.5 l NS AD #0 02/24/17 Levofloxacin [Levaquin] 500 mg PO DAILY #3 tablet 01/11/18 PredniSONE [Deltasone] 30 mg PO DAILY 4 Days #6 tablet 01/11/18 Allergies Allergy/AdvReac Type Severity Reaction Status Date / Time acetylcysteine Allergy Severe Anaphylaxis Verified 01/09/18 07:59 ramelteon [From Rozerem] Allergy Difficulty Verified 01/09/18 07:59 Breathing Amoxicillin [From Augmentin] AdvReac Intermediate Nausea Verified 01/09/18 07:59 azithromycin [From Zithromax] AdvReac Intermediate Nausea Verified 01/09/18 07: 59 clavulanic acid AdvReac Intermediate Nausea Verified 01/09/18 07:59 [From Augmentin] dexlansoprazole AdvReac Mild Headache Verified 01/09/18 07:59 [From Dexilant] prednisone AdvReac Mild See Verified 01/09/18 07:59 Comments sertraline [From Zoloft] AdvReac Mild Depression Verified 01/09/18 07:59 Tetracycline AdvReac Mild Nausea Verified 01/09/18 07:59 Varenicline [From Chantix] AdvReac Mild Nightmare Verified 01/09/18 07:59 Review of Systems: As reviewed in the HPI. All other systems reviewed are negative or normal. Past Medical History - Past Medical History Attestation: Yes The following information was validated with the patient. 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 history: Reports: other - Social History Smoking Status: Former smoker Smokeless Tobacco Status: No Alcohol use: Reports: none Drug use: Reports: none Physical Exam CONSTITUTIONAL: [Ill-appearing and in acute moderate respiratory distress] EYES: [EOMI, clear conjunctiva, PERRLA] HENT: [Normocephalic, atraumatic, moist mucus membranes, normal oropharynx] NECK: [normal inspection, full ROM, trachea midline, no obvious swelling] PULMONARY: [Severely diminished breath sounds bilaterally, push lip breathing, one to 2 word sentences, wheezing and right lung field, very diminished and left CARDIOVASCULAR: [Tachycardia, regular rhythm, normal heart sounds, no murmurs, distal extremities are warm and well perfused] GASTROINSTESTINAL: [soft, mildly tender in epigastrium, non-rigid, non-distended , no guarding, no rebound, normal bowel sounds] GENITOURINARY/RECTAL: [deferred] NEUROLOGIC: [Alert, oriented x3, normal speech, moves all extremities] EXTREMITIES: [Normal inspection, full ROM, no tenderness, no pedal edema, normal capillary refill] MUSCULOSKELETAL: [no gross deformities, atraumatic] SKIN: [No cyanosis, no diaphoresis, normal color, warm, no rash] PSYCHIATRIC: [Anxious, but is in resp distress] - General Limitations: no limitations General appearance: alert, in no apparent distress Course Course Narrative: Patient presenting with COPD exacerbation. Steroids in route. Did not get nebs because she needs nebs via BiPAP. We will workup and admit. Vital Signs Temperature 98.5 F 01/28/18 15:25 Pulse Rate 100 01/28/18 15:25 Respiratory Rate 20 01/28/18 15:25 Blood Pressure 186/105 01/28/18 15:25 O2 Sat by Pulse Oximetry 100 01/28/18 15:25 Temperature 98.5 F 01/28/18 15:25 Pulse Rate 108 01/28/18 17:32 Respiratory Rate 18 01/28/18 17:32 Blood Pressure 151/96 01/28/18 17:32 O2 Sat by Pulse Oximetry 100 01/28/18 17:32 Oxygen Delivery Oxygen Delivery Bipap Shortness of Breath/Dyspnea - [facility] Narrative Medical decision making narrative: Chest X-Ray 01/28/18 15:43 IMPRESSION: No acute process. D/ / Lux Antoine MD / Lux Antoine MD Interpreting Provider: Lux Antoine MD 1636 hrs.: No acute process on chest x-ray. She does remain tachycardic we did remove her from BiPAP and she is having difficulty with breathing and she said that she cannot breathe through her nose. Prescription her off the BiPAP at this time. Then reassess. - Medical Records Medical records reviewed: Yes I reviewed the patient's medical records. - Lab Data Lab results reviewed: Yes I reviewed the patient's lab results. Result diagrams: 01/28/18 16:20 01/28/18 16:20 Lab Results 01/28/18 01/28/18 01/28/18 Range/Units 16:20 16:20 16:20 WBC 9.9 (4.3-11.1) K/mcL RBC 4.37 (3.82-4.97) M/mcL Hgb 12.2 (11.5-15.4) g/dL Hct 38.0 (35.3-44.9) % MCV 87.0 (83.0-100.0) fL MCH 27.9 L (28.0-33.3) pg MCHC 32.1 (31.6-35.5) g/dL RDW 15.3 H (11.5-14.5) % Plt Count 445 H (140-400) K/mcL MPV 7.5 L (9.4-12.4) fL Immature Gran % 0.4 (0-4) % Seg Neutrophils % 81.9 % Lymphocytes % 10.3 % Monocytes % 6.2 % Eosinophils % 0.6 % Basophils % 0.6 % Neutrophils # 8.1 (1.6-8.9) K/mcL Lymphocytes # 1.0 (0.6-4.6) K/mcL Monocytes # 0.6 (0.0-1.3) K/mcL Eosinophils # 0.1 (0.0-0.6) K/mcL Basophils # 0.1 (0.0-0.2) K/mcL Sodium 129 L (136-145) mEq/L Potassium 4.4 (3.5-5.1) mEq/L Chloride 93 L (98-107) mEq/L Carbon Dioxide 28 (23-29) mEq/L BUN 11 (8-23) mg/dL Creatinine 0.57 L (0.60-1.20) mg/dL Est GFR ( Amer) > 60 (> 60) Est GFR (Non-Af Amer) > 60 (> 60) BUN/Creatinine Ratio 19 (6-26) Glucose 111 H (70-105) mg/dL Calculated Osmolality 268 L (280-300) Lactic Acid 0.7 (0.5-2.2) mmol/L Calcium 9.6 (8.6-10.3) mg/dL Troponin I < 0.03 (< 0.04) ng/mL B-Natriuretic Peptide (Less than 100) pg/mL 01/28/18 Range/Units 16:20 WBC (4.3-11.1) K/mcL RBC (3.82-4.97) M/mcL Hgb (11.5-15.4) g/dL Hct (35.3-44.9) % MCV (83.0-100.0) fL MCH (28.0-33.3) pg MCHC (31.6-35.5) g/dL RDW (11.5-14.5) % Plt Count (140-400) K/mcL MPV (9.4-12.4) fL Immature Gran % (0-4) % Seg Neutrophils % % Lymphocytes % % Monocytes % % Eosinophils % % Basophils % % Neutrophils # (1.6-8.9) K/mcL Lymphocytes # (0.6-4.6) K/mcL Monocytes # (0.0-1.3) K/mcL Eosinophils # (0.0-0.6) K/mcL Basophils # (0.0-0.2) K/mcL Sodium (136-145) mEq/L Potassium (3.5-5.1) mEq/L Chloride (98-107) mEq/L Carbon Dioxide (23-29) mEq/L BUN (8-23) mg/dL Creatinine (0.60-1.20) mg/dL Est GFR ( Amer) (> 60) Est GFR (Non-Af Amer) (> 60) BUN/Creatinine Ratio (6-26) Glucose (70-105) mg/dL Calculated Osmolality (280-300) Lactic Acid (0.5-2.2) mmol/L Calcium (8.6-10.3) mg/dL Troponin I (< 0.04) ng/mL B-Natriuretic Peptide 105 H (Less than 100) pg/mL - Radiology Data Radiology results reviewed: Yes I reviewed the patient's radiology results. - EKG Data EKG attestation: Yes I reviewed and interpreted this EKG. EKG results narrative: Sinus rhythm, rate 98, normal axis, no acute ischemic changes Critical Care Time Critical Care Time: Yes Total Critical Care Time: 35 Attestation: Excluding a separately billable procedures. Attestation Statement - Attestation Attestation: This documentation is done with the assistance of Dragon dictation. Despite efforts made to ensure accuracy, there may be inaccuracies in splitting machine operator or spelling and typographical errors. I examined this patient and my medical decision-making was reviewed with the Resident Physician. I agree with the documented findings, disposition and treatment plan as described except to the extent set forth below. Patient presents today with Dr. Escobar myself, agree with his evaluation and management plan, supervising care the patient's stay. Patient presents with dyspnea today. She has a history of tracheomalacia. Says the only way that she will get betters with albuterol she does not like Atrovent and with BiPAP. We have ordered that we will do chest x-ray EKG and reassess. She is in agreement with this plan.
[2018-01-28] MEDS ORDERED: Ipratropium/Albuterol Neb 3 ML IH ONE (15:43)
[2018-01-28] MEDS ORDERED: Albuterol 2.5 MG/3 ML NEBULIZER IH ONE (15:48)
[2018-01-28 16:30] LABS: Basophils # 0.1 K/mcL (0.0-0.2); Basophils % 0.6 %; Eosinophils # 0.1 K/mcL (0.0-0.6); Eosinophils % 0.6 %; Hemoglobin 12.2 g/dL (11.5-15.4); Immature Granulocytes % 0.4 % (0-4); Lymphocytes % 10.3 %; Mean Corpuscular HGB Conc 32.1 g/dL (31.6-35.5); Mean Corpuscular Hemoglobin 27.9 pg (28.0-33.3); Mean Platelet Volume 7.5 fL (9.4-12.4); Monocytes # 0.6 K/mcL (0.0-1.3); Monocytes % 6.2 %; Neutrophils # 8.1 K/mcL (1.6-8.9); Platelet Count 445 K/mcL (140-400); Red Blood Count 4.37 M/mcL (3.82-4.97); Red Cell Distribution Width 15.3 % (11.5-14.5); Segmented Neutrophils % 81.9 %
[2018-01-28] MEDS ORDERED: Oxymetazoline Nasal SPRAY BOTTLE NS STA (16:32)
[2018-01-28] MEDS ORDERED: Saline Nasal Spray 44 ML BOTTLE NS STA (16:32)
[2018-01-28 16:58] LABS: Troponin I < 0.03 ng/mL (< 0.04)
[2018-01-28 17:06] LABS: BUN/Creatinine Ratio 19 (6-26); Blood Urea Nitrogen 11 mg/dL (8-23); Calcium 9.6 mg/dL (8.6-10.3); Carbon Dioxide 28 mEq/L (23-29); Chloride 93 mEq/L (98-107); Glucose 111 mg/dL (70-105); Osmolality,Calculated 268 (280-300); Potassium 4.4 mEq/L (3.5-5.1); Sodium 129 mEq/L (136-145); eGFR For Non-African Americans > 60 (> 60)
[2018-01-28] MEDS ORDERED: Naloxone 0.4 MG/ML INJ IVP PRN (17:42)
[2018-01-28] MEDS ORDERED: Bisacodyl 10 MG RECTAL SUPPOSITORY RC PRN (17:47)
[2018-01-28] MEDS ORDERED: Artificial Tears SOLN 15 ML BOTTLE BOTH EYES PRN (17:47)
[2018-01-28] MEDS ORDERED: Levofloxacin 750 MG/150 ML 750 MG/150 ML BAG IVPB SCH (18:00)
--- NOTE | 2018-01-28 18:27 | Internal Med History&Physical ---
Date of Encounter: 01/28/18 Time of Encounter: 18:20 Internal Medicine - H&P: HPI Chief complaint: Shortness of breath, coughing for over a week History of present illness: Ms. Blackburn is a 72 year old female with pmh of COPD, tracheomalacia, chronic respiratory failure on home oxygen presenting with complaints of shortness of breath coughing and difficulty breathing for over a week. Patient notes she was recently in the hospital and discharged just over 2 weeks ago. She notes that for over a week she has been experiencing symptoms of shortness of breath and respiratory distress. She describes it as severe coughing, throat tightness and productive cough. She denies any fevers or chills. She came to the hospital because shortness of breath was getting progressively worse. In the ER, She was noted to have pursed breathing and was started on BIPAP and is being admitted for further management Past Med Surg Social Fam HX - Past Medical History Medical history: asthma, cancer, cardiomyopathy, CHF, COPD, coronary artery disease, GERD, hyperlipidemia, hypertension, myocardial infarction, osteoporosis , pulmonary embolus, thyroid disease, other Additional medical history: trachea dysplasia. vocal cord dysfunction. graves dx. esophagitis Psychiatric history: anxiety, depression - Past Surgical History Surgical History: angioplasty/stent, cancer surgery, cataract, cholecystectomy, sinus surgery Additional surgical history: hemrroidectomy. cardiac stent x1 - Social History Smoking Status: Former smoker Smokeless Tobacco Status: No Alcohol use: none Drug use: none - Family History Son Living Status: Still Living Hx Family GI Disorders: Yes Hx Family Endocrine Disorder: Yes (Type 2 DM) Hx Family Neurologic Disorders: Yes (depression) Mother Living Status: Hx Family Cancer: Yes Sister Living Status: Hx Family Cardiac Disorders: Yes (Cerebrovascular accident) Hx Family Respiratory Disorders: No Hx Family Cancer: No Hx Family GI Disorders: No Hx Family Endocrine Disorder: No Hx Family Neuromuscular Disorders: No Hx Family Neurologic Disorders: No Hx Family HEENT Disorders: No Hx Family Autoimmune Disorders: No Daughter Living Status: Still Living Hx Family Cardiac Disorders: Yes ([place]) Hx Family Respiratory Disorders: Yes (Chronic bronchitis) Hx Family Cancer: No Hx Family GI Disorders: No Hx Family Endocrine Disorder: No Hx Family Neuromuscular Disorders: No Hx Family Neurologic Disorders: No Hx Family HEENT Disorders: No Hx Family Autoimmune Disorders: No Brother Family Member Ethnicity: Non- Living Status: Still Living Hx Family Cardiac Disorders: Yes (Coronary artery disease) Hx Family Respiratory Disorders: No Hx Family Cancer: No Hx Family GI Disorders: No Hx Family Endocrine Disorder: Yes (TYPE 2 DIABETES MELLITUS) Hx Family Neuromuscular Disorders: No Hx Family Neurologic Disorders: No Hx Family HEENT Disorders: No Hx Family Autoimmune Disorders: No Father Living Status: Hx Family Cardiac Disorders: Yes ([place]) Hx Family Respiratory Disorders: No Hx Family Cancer: Yes Hx Family GI Disorders: No Hx Family Endocrine Disorder: No Hx Family Neuromuscular Disorders: No Hx Family Neurologic Disorders: No Hx Family HEENT Disorders: No Hx Family Autoimmune Disorders: No Internal Medicine - H&P: Meds Nitroglycerin [Nitrostat] 0.4 mg SL Q5M PRN 11/22/15 [History] Acetaminophen [Tylenol] 1,000 mg PO Q6HR PRN 12/20/15 [History] Tiotropium [Spiriva] 18 mcg IH 0800 01/04/16 [History] Albuterol Sulfate [Proair Hfa] 2 puff IH Q4H PRN 11/17/16 [History] Aspirin [Lo-Dose Aspirin EC] 81 mg PO DAILY 11/17/16 [History] Simethicone [Gas-X] 80 mg PO QID 12/26/16 [History] Budesonide/Formoterol 160/4.5 [Symbicort 160/4.5] 2 puff IH BIDR 02/19/17 [ History] Guaifenesin [Mucinex] 600 mg PO 199902/19/17 [History] Oxygen 1.5 l NS AD #0 02/24/17 [Rx] Bisacodyl [Dulcolax] 10 mg RC DAILY PRN 08/05/17 [History] Docusate [Colace] 100 mg PO BID 08/05/17 [History] Lactulose [Enulose] 30 ml PO DAILY PRN 08/05/17 [History] Multivitamin [One Daily Essential] 1 tab PO DAILY 08/05/17 [History] ALPRAZolam [Xanax 0.25 MG Tablet] 0.25 mg PO DAILY PRN 01/09/18 [History] ALPRAZolam [Xanax 0.25 MG Tablet] 0.5 mg PO HS 01/09/18 [History] Cetirizine HCl [All Day Allergy] 10 mg PO DAILY PRN 01/09/18 [History] Clopidogrel [Plavix] 75 mg PO DAILY 01/09/18 [History] Diclofenac Sodium [Voltaren] 1 appl TP DAILY PRN 01/09/18 [History] GuaiFENesin Liq [Robitussin Liq] 50 - 100 mg PO Q4H PRN 01/09/18 [History] Loratadine [Claritin] 10 mg PO DAILY 01/09/18 [History] Metoprolol Succinate [Toprol Xl] 25 mg PO BID 01/09/18 [History] Oxymetazoline [Afrin] 1 spray NS Q12HR PRN 01/09/18 [History] Polyvinyl Alcohol [Artificial Tears] 2 drop BOTH EYES DAILY PRN 01/09/18 [ History] Rabeprazole Sodium [Aciphex] 20 mg PO BID 01/09/18 [History] Trazodone HCl 50 mg PO HS 01/09/18 [History] methIMAzole [Tapazole] 5 mg PO 0900,1700 01/09/18 [History] Levofloxacin [Levaquin] 500 mg PO DAILY #3 tablet 01/11/18 [Rx] Lisinopril [Zestril] 2.5 mg PO DAILY 01/28/18 [History] 3 Allergy/AdvReac Type Severity Reaction Status Date / Time acetylcysteine Allergy Severe Anaphylaxis Verified 01/09/18 07:59 ramelteon [From Rozerem] Allergy Difficulty Verified 01/09/18 07:59 Breathing Amoxicillin [From Augmentin] AdvReac Intermediate Nausea Verified 01/09/18 07:59 azithromycin [From Zithromax] AdvReac Intermediate Nausea Verified 01/09/18 07: 59 clavulanic acid AdvReac Intermediate Nausea Verified 01/09/18 07:59 [From Augmentin] dexlansoprazole AdvReac Mild Headache Verified 01/09/18 07:59 [From Dexilant] prednisone AdvReac Mild See Verified 01/09/18 07:59 Comments sertraline [From Zoloft] AdvReac Mild Depression Verified 01/09/18 07:59 Tetracycline AdvReac Mild Nausea Verified 01/09/18 07:59 Varenicline [From Chantix] AdvReac Mild Nightmare Verified 01/09/18 07:59 All Systems PM: A 10-system review of systems was performed and is negative for pertinent findings except as documented above in the HPI. - Constitutional Constitutional: no chills, no fever(s), no night sweats - EENT Eyes: no change in vision, no discharge, no pain, no photophobia Ears: no ear discharge, no ear pain, no tinnitus Nose, mouth and throat: no dysphagia, no nasal discharge, no neck pain, no sore throat - Cardiovascular Cardiovascular ROS IM: no chest pain, no diaphoresis, no dyspnea, no lightheadedness, no palpitations, no syncope - Respiratory Respiratory: cough, dyspnea, wheezing, excessive phlegm production - Gastrointestinal Gastrointestinal: no abdominal pain, no diarrhea, no hematemesis, no hematochezia, no melena, no nausea, no vomiting - Genitourinary Genitourinary: no change in urinary stream, no dysuria, no flank pain, no hematuria - Musculoskeletal Musculoskeletal ROS IM: no numbness, no tingling - Integumentary Integumentary IM: no rash, no unusual bruising - Neurological Neurological ROS: no confusion, no convulsions, no focal weakness, no numbness, no tingling, no tremor(s) - Hematologic/Lymphatic Hematologic/Lymphatic: no easy bruising - Constitutional Vitals: Temp Pulse Resp BP Pulse Ox 98.5 F 106 24 179/84 100 01/28/18 15:25 01/28/18 18:19 01/28/18 18:19 01/28/18 18:19 01/28/18 18:19 General appearance: Present: cachectic Exam: Pt is in moderate respiratory distress and speaks in short sentences - Head Head exam: Present: atraumatic, normocephalic - Eye Eye exam: Present: PERRL, conjuntiva pink, sclera anicteric Pupils: Present: PERRL - Neck Neck exam general surgery: Present: supple, trachea midline. Absent: lymphadenopathy - Respiratory Respiratory exam: Present: decreased breath sounds, wheezes. Absent: accessory muscle use, rales, rhonchi Additional comments: Poor air entry bilaterally - Cardiovascular Cardiovascular exam: Present: RRR, +S1, +S2. Absent: diastolic murmur, gallop, rubs, systolic murmur - GI/Abdominal GI/Abdominal exam: Present: normal bowel sounds, soft, no peritoneal signs. Absent: distended, tenderness - Extremities Exam Extremities exam: Present: warm, radial pulses palpable and symmetrical. Absent : calf tenderness, cyanotic, pedal edema - Neurological Exam Neurological exam: Present: CN II-XII intact, oriented X3, no focal deficits. Absent: pronater drift, facial droop, speech deficit - Skin Skin exam: Present: dry, intact Internal Med - H&P Results - Labs CBC & Chem 7: 01/28/18 16:20 01/28/18 16:20 Labs: Short CBC 01/28/18 Range/Units 16:20 WBC 9.9 (4.3-11.1) K/mcL Hgb 12.2 (11.5-15.4) g/dL Hct 38.0 (35.3-44.9) % Plt Count 445 H (140-400) K/mcL Neutrophils # 8.1 (1.6-8.9) K/mcL BMP 01/28/18 16:20 Sodium 129 L Potassium 4.4 Chloride 93 L Carbon Dioxide 28 BUN 11 Creatinine 0.57 L Glucose 111 H Calcium 9.6 Cardiac Enzymes 01/28/18 Range/Units 16:20 Troponin I < 0.03 (< 0.04) ng/mL - Impressions ITS Impressions Chest X-Ray 01/28/18 15:43 IMPRESSION: No acute process. D/ / Lux Antoine MD / Lux Antoine MD Interpreting Provider: Lux Antoine MD - Assessment and plan (1) Acute on chronic respiratory failure with hypoxemia Current Visit: No Status: Acute Assessment and plan: Pt comes in with severe shortness of breath and pursed breathing likely 2/2 to COPD exacerbation and tracheomalacia Will place on BIPAP, duonebs, steroids and antibiotic. Obtain ABG (2) Acute exacerbation of chronic obstructive airways disease Current Visit: No Status: Acute Assessment and plan: See #1. Continue nebs, steroids and antibiotics (3) Tracheomalacia Current Visit: Yes Status: Chronic Assessment and plan: On BIPAP and nebs (4) NUBIA (obstructive sleep apnea) Current Visit: No Status: Acute Assessment and plan: Continue BIPAP (5) Hypertension Current Visit: No Status: Chronic Assessment and plan: Continue home meds Qualifiers: Hypertension type: essential hypertension Qualified Code(s): I10 - Essential (primary) hypertension (6) Diastolic CHF Current Visit: Yes Status: Chronic Assessment and plan: Chronic. No acute exacerbation. Continue home meds Qualifiers: Heart failure chronicity: chronic Qualified Code(s): I50.32 - Chronic diastolic (congestive) heart failure (7) DVT prophylaxis Current Visit: No Status: Acute Assessment and plan: Heparin sc - Time Spent With Patient Total time spent is greater than 50% in coordination of care (as documented) at patient's floor/unit and/or counseling patient:
[2018-01-28 19:14] LABS: Bilirubin,Urine Negative (Negative); Blood,Urine Negative (Negative); Clarity,Urine Clear (Clear); Color,Urine Yellow (Yellow); Glucose,Urine (UA) Normal (Normal); Ketones,Urine Negative (Negative); Leukocyte Esterase,Urine Negative (Negative); Nitrite,Urine Negative (Negative); PH,Urine 6.5 pH Units (5.0-8.0); Protein,Urine Negative (Neg-Trace); Urobilinogen,Urine Normal (Normal)
[2018-01-28] MEDS ORDERED: Ipratropium/Albuterol Neb 3 ML IH SCH (20:00)
[2018-01-28] MEDS: Budesonide/Formoterol 160/4.5 1 PUFF INH IH SCH (20:39)
[2018-01-28] MEDS: ALPRAZolam 0.25 MG TABLET PO SCH (21:03)
[2018-01-28] MEDS: Metoprolol XL (24 HR) Succ 25 MG TAB.ER.24H PO SCH (21:03)
[2018-01-28] MEDS: traZODone 50 MG TABLET PO SCH (21:03)
[2018-01-28] MEDS: methIMAzole 5 MG TABLET PO SCH (21:06)
[2018-01-28] MEDS ORDERED: Albuterol 2.5 MG/3 ML NEBULIZER IH PRN (21:40)
[2018-01-28] MEDS: *HR* Heparin 5,000 UNIT/ML VIAL SQ SCH (22:55)
[2018-01-28] MEDS: Albuterol 2.5 MG/3 ML NEBULIZER IH SCH (23:50)
[2018-01-29 04:00] LABS: Basophils % 0.2 %; Hemoglobin 10.7 g/dL (11.5-15.4); Immature Granulocytes % 0.6 % (0-4); Lymphocytes # 0.4 K/mcL (0.6-4.6); Lymphocytes % 7.1 %; Mean Corpuscular HGB Conc 32.4 g/dL (31.6-35.5); Mean Corpuscular Hemoglobin 27.8 pg (28.0-33.3); Mean Corpuscular Volume 85.7 fL (83.0-100.0); Mean Platelet Volume 7.7 fL (9.4-12.4); Monocytes # 0.4 K/mcL (0.0-1.3); Monocytes % 6.7 %; Neutrophils # 4.4 K/mcL (1.6-8.9); Platelet Count 407 K/mcL (140-400); Red Blood Count 3.85 M/mcL (3.82-4.97); Segmented Neutrophils % 85.4 %
[2018-01-29 04:21] LABS: BUN/Creatinine Ratio 24 (6-26); Blood Urea Nitrogen 15 mg/dL (8-23); Calcium 8.9 mg/dL (8.6-10.3); Carbon Dioxide 28 mEq/L (23-29); Chloride 98 mEq/L (98-107); Glucose 152 mg/dL (70-105); Magnesium 1.8 mg/dL (1.6-2.6); Osmolality,Calculated 278 (280-300); Potassium 4.9 mEq/L (3.5-5.1); Sodium 132 mEq/L (136-145); eGFR For Non-African Americans > 60 (> 60)
[2018-01-29] MEDS: Albuterol 2.5 MG/3 ML NEBULIZER IH SCH ×6 (04:23→23:57)
[2018-01-29] MEDS: *HR* Heparin 5,000 UNIT/ML VIAL SQ SCH ×2 (05:19→16:37)
[2018-01-29] MEDS ORDERED: Tiotropium 18 MCG inhalation IH SCH (07:00)
[2018-01-29] MEDS: Budesonide/Formoterol 160/4.5 1 PUFF INH IH SCH ×2 (07:22→20:23)
[2018-01-29] MEDS: Tiotropium 18 MCG inhalation IH SCH (07:22)
[2018-01-29] MEDS: Metoprolol XL (24 HR) Succ 25 MG TAB.ER.24H PO SCH ×2 (07:51→20:13)
[2018-01-29] MEDS: Aspirin Enteric Coated 81 MG Tablet PO SCH (07:52)
[2018-01-29] MEDS: methIMAzole 5 MG TABLET PO SCH ×2 (07:52→16:28)
[2018-01-29] MEDS ORDERED: Albuterol 2.5 MG/3 ML NEBULIZER IH PRN (07:55)
[2018-01-29] MEDS ORDERED: MethylPREDNISolone 40 MG/ML VIAL IVP SCH ×3 (08:00→18:00)
[2018-01-29] MEDS ORDERED: methIMAzole 5 MG TABLET PO SCH (09:00)
--- NOTE | 2018-01-29 09:11 | Pulmonology Consult Note ---
<Randal Fair M - Last Filed: 01/29/18 13:20> Date of Encounter: 01/29/18 Medications and Allergies Nitroglycerin [Nitrostat] 0.4 mg SL Q5M PRN 11/22/15 [History] Acetaminophen [Tylenol] 1,000 mg PO Q6HR PRN 12/20/15 [History] Tiotropium [Spiriva] 18 mcg IH 0800 01/04/16 [History] Albuterol Sulfate [Proair Hfa] 2 puff IH Q4H PRN 11/17/16 [History] Aspirin [Lo-Dose Aspirin EC] 81 mg PO DAILY 11/17/16 [History] Simethicone [Gas-X] 80 mg PO QID 12/26/16 [History] Budesonide/Formoterol 160/4.5 [Symbicort 160/4.5] 2 puff IH BIDR 02/19/17 [ History] Guaifenesin [Mucinex] 600 mg PO 2000 02/19/17 [History] Oxygen 1.5 l NS AD #0 02/24/17 [Rx] Bisacodyl [Dulcolax] 10 mg RC DAILY PRN 08/05/17 [History] Docusate [Colace] 100 mg PO BID 08/05/17 [History] Lactulose [Enulose] 30 ml PO DAILY PRN 08/05/17 [History] Multivitamin [One Daily Essential] 1 tab PO DAILY 08/05/17 [History] ALPRAZolam [Xanax 0.25 MG Tablet] 0.25 mg PO DAILY PRN 01/09/18 [History] ALPRAZolam [Xanax 0.25 MG Tablet] 0.5 mg PO HS 01/09/18 [History] Cetirizine HCl [All Day Allergy] 10 mg PO DAILY PRN 01/09/18 [History] Clopidogrel [Plavix] 75 mg PO DAILY 01/09/18 [History] Diclofenac Sodium [Voltaren] 1 appl TP DAILY PRN 01/09/18 [History] GuaiFENesin Liq [Robitussin Liq] 50 - 100 mg PO Q4H PRN 01/09/18 [History] Loratadine [Claritin] 10 mg PO DAILY 01/09/18 [History] Metoprolol Succinate [Toprol Xl] 25 mg PO BID 01/09/18 [History] Oxymetazoline [Afrin] 1 spray NS Q12HR PRN 01/09/18 [History] Polyvinyl Alcohol [Artificial Tears] 2 drop BOTH EYES DAILY PRN 01/09/18 [ History] Rabeprazole Sodium [Aciphex] 20 mg PO BID 01/09/18 [History] Trazodone HCl 50 mg PO HS 01/09/18 [History] methIMAzole [Tapazole] 5 mg PO 0900,1700 01/09/18 [History] Levofloxacin [Levaquin] 500 mg PO DAILY #3 tablet 01/11/18 [Rx] Lisinopril [Zestril] 2.5 mg PO DAILY 01/28/18 [History] 3 Allergy/AdvReac Type Severity Reaction Status Date / Time acetylcysteine Allergy Severe Anaphylaxis Verified 01/09/18 07:59 ramelteon [From Rozerem] Allergy Difficulty Verified 01/09/18 07:59 Breathing Amoxicillin [From Augmentin] AdvReac Intermediate Nausea Verified 01/09/18 07:59 azithromycin [From Zithromax] AdvReac Intermediate Nausea Verified 01/09/18 07: 59 clavulanic acid AdvReac Intermediate Nausea Verified 01/09/18 07:59 [From Augmentin] dexlansoprazole AdvReac Mild Headache Verified 01/09/18 07:59 [From Dexilant] prednisone AdvReac Mild See Verified 01/09/18 07:59 Comments sertraline [From Zoloft] AdvReac Mild Depression Verified 01/09/18 07:59 Tetracycline AdvReac Mild Nausea Verified 01/09/18 07:59 Varenicline [From Chantix] AdvReac Mild Nightmare Verified 01/09/18 07:59 All Systems: The remainder of the systems were reviewed and are negative Physical Examination Vital Signs: Vital Signs, Last 4 Hours Temp Pulse Resp BP Pulse Ox 01/29/18 11:33 20 98 01/29/18 11:17 98.8 F 87 22 154/84 99 Results - Laboratory Findings CBC and BMP: 01/29/18 03:17 01/29/18 03:17 ABG ABG pH 7.43 pH Units (7.32-7.45) 01/29/18 11:31 ABG pCO2 45 mmHg (35-45) 01/29/18 11:31 ABG pO2 82 mmHg (85-104) L 01/29/18 11:31 ABG O2 Saturation 96 % (95-98) 01/29/18 11:31 Abnormal lab findings: Abnormal lab results Hgb 10.7 g/dL (11.5-15.4) L D 01/29/18 03:17 Hct 33.0 % (35.3-44.9) L 01/29/18 03:17 MCH 27.8 pg (28.0-33.3) L 01/29/18 03:17 RDW 15.0 % (11.5-14.5) H 01/29/18 03:17 Plt Count 407 K/mcL (140-400) H 01/29/18 03:17 MPV 7.7 fL (9.4-12.4) L 01/29/18 03:17 Lymphocytes # 0.4 K/mcL (0.6-4.6) L 01/29/18 03:17 ABG pO2 82 mmHg (85-104) L 01/29/18 11:31 ABG HCO3 30 mEq/L (21-27) H 01/29/18 11:31 ABG Total CO2 31 mEq/L (20-26) H 01/29/18 11:31 ABG Base Excess 5 mEq/L (-2 to 3) H 01/29/18 11:31 Sodium 132 mEq/L (136-145) L 01/29/18 03:17 Glucose 152 mg/dL (70-105) H 01/29/18 03:17 Calculated Osmolality 278 (280-300) L 01/29/18 03:17 B-Natriuretic Peptide 105 pg/mL (Less than 100) H 01/28/18 16:20 - Clinical Findings Intake & Output: Intake & Output 01/28/18 01/29/18 01/29/18 23:59 07:59 15:59 Output Total 1000 / 1000 Balance -1000 / -1000 Weight 57.1 kg Consult Discharge Plan - Plan Referrals: Paula Casiano, MARINE SPECIALIST [Primary Care Provider] - - Attending Attestation I examined this patient and my medical decision-making was reviewed with the Resident Physician. I agree with the documented findings, disposition and treatment plan as described except to the extent set forth below. Patient seen and examined. Labs, radiology, chart personally reviewed. Agree with resident's history and physical, assessment, plan with following comments: IGNITION SPECIALIST: Patient follows commands, Pulmonary: Acceptable oxygenation and ventilation at this time. Unfortunately patient has this condition which is very difficult to treat of tracheobronchomalacia and she is not done her CPAP titration yet which can help patient with tracheobronchomalacia with providing a pneumonatic stent-like treatment. Patient with her age group stand could be problematic and she does not want that treatment. It is reasonable to treat her as COPD exacerbation and she typically does not respond to oral prednisone. Corrected for a of systemic steroid would be recommended as this can make an anxiety as a side effect of systemic steroid which would affect her breathing. Thank you for consultation <Madi Yi - Last Filed: 01/29/18 14:13> Date of Encounter: 01/29/18 Time of Encounter: 08:30 Assessment and Plan (1) Acute respiratory distress Current Visit: No Status: Acute - Patient has shortness of breath likely due to her tracheomalacia. I met her she was on 2L of oxygen which is lower than her home oxygen requirement (2.5 L) . Patient has been transitioned to BiPAP because the positive air pressure helps open up her tracheal lumen and breathe better. She was hospitalized not too long ago in Dec, 2017 (2) Tracheomalacia Current Visit: No Status: Chronic -Patient has a history of tracheal malacia which was diagnosed a few years ago. She used CPAP at home which has not been helping her with the symptoms before she wakes every morning very tired. Patient has a appointment for titration sleep study to qualify for home BiPAP, not been able to keep up with her appointment because of her comorbidities. -She has been educated about surgical treatments like intratracheal stent placement and the fact that risks outweigh their benefits - Patient currently on BiPAP to help with her condition. Commended outpatient titration sleep study to qualify for home BiPAP. (3) COPD (chronic obstructive pulmonary disease) Current Visit: Yes Status: Acute -Patient has a history of COPD . She's on n 2.5 L of oxygen at home. Takes symbicort 2 puffs BID and Spiriva as her home inhalers . Patient has tried elliptia in the past but it makes her tracheomalacia worse - her most recent ABG showed mixed respiratory acidosis and ,metabolic alkalosis -She has no bilateral wheezes, does have decreased breath sounds. no productive cough or sputum. -Currently on BiPAP. Qualifiers: Qualified Code(s): J44.9 - Chronic obstructive pulmonary disease, unspecified History of Present Illness Consult date: 01/29/18 Chief complaint: shortness of breath History of present illness: Ms. Blackburn is a pleasant 80-year-old female with past medical history of CAD, COPD , tracheomalacia who presented to the ED yesterday evening because of shortness of breath. Patient has a known history of traceheomalacia, and has had multiple admissions because of shortness of breath secondary to tracheomalacia. She tells me that every time she is admitted to the hospital she was put on BiPAP and that really helps open up the trachea and help her breathe better. Patient was seen in [facility] approximately a year ago for the condition and recommended to use BiPAP, but appears to me that the patient has been using CPAP the whole time. She tells me that she never realized she was not on BiPAP the whole time. With CPAP she was able to sleep comfortably but got up really tired. Patient has an appointment for titration sleep study so she can qualify for a BiPAP eventually, but had to reschedule it because of her comorbidities. She takes Symbicort and Spiriva for her COPD symptoms is also on 2.5 L of home oxygen.. She has tried Breoellipita and Spiriva respimart for her COPD but it makes her tracheomalacia really worse. She denies any worsening cough, productive sputum, fever and chills. Denies any recent bacterial /viral infection. Patient also takes guafenesin 1-2 times/day and Mucinex at night. She sees Dr. Gottlieb for her coronary artery disease and currently she is on aspirin and Plavix. Currently patient is on 2 L of NC satting at 95% and will be transitioned to BiPAP very soon. Past Med Surg Social Fam HX - Past Medical History Medical history: asthma, cancer, cardiomyopathy, CHF, COPD, coronary artery disease, GERD, hyperlipidemia, hypertension, myocardial infarction, osteoporosis , pulmonary embolus, thyroid disease, other Additional medical history: trachea dysplasia. vocal cord dysfunction. graves dx. esophagitis Psychiatric history: anxiety, depression - Past Surgical History Surgical History: angioplasty/stent, cancer surgery, cataract, cholecystectomy, sinus surgery Additional surgical history: hemrroidectomy. cardiac stent x1 - Social History Smoking Status: Former smoker Smokeless Tobacco Status: No Alcohol use: none Drug use: none - Family History Son Living Status: Still Living Hx Family GI Disorders: Yes Hx Family Endocrine Disorder: Yes (Type 2 DM) Hx Family Neurologic Disorders: Yes (depression) Mother Living Status: Hx Family Cancer: Yes Sister Living Status: Hx Family Cardiac Disorders: Yes (Cerebrovascular accident) Hx Family Respiratory Disorders: No Hx Family Cancer: No Hx Family GI Disorders: No Hx Family Endocrine Disorder: No Hx Family Neuromuscular Disorders: No Hx Family Neurologic Disorders: No Hx Family HEENT Disorders: No Hx Family Autoimmune Disorders: No Daughter Living Status: Still Living Hx Family Cardiac Disorders: Yes ([place]) Hx Family Respiratory Disorders: Yes (Chronic bronchitis) Hx Family Cancer: No Hx Family GI Disorders: No Hx Family Endocrine Disorder: No Hx Family Neuromuscular Disorders: No Hx Family Neurologic Disorders: No Hx Family HEENT Disorders: No Hx Family Autoimmune Disorders: No Brother Family Member Ethnicity: Non- Living Status: Still Living Hx Family Cardiac Disorders: Yes (Coronary artery disease) Hx Family Respiratory Disorders: No Hx Family Cancer: No Hx Family GI Disorders: No Hx Family Endocrine Disorder: Yes (TYPE 2 DIABETES MELLITUS) Hx Family Neuromuscular Disorders: No Hx Family Neurologic Disorders: No Hx Family HEENT Disorders: No Hx Family Autoimmune Disorders: No Father Living Status: Hx Family Cardiac Disorders: Yes ([place]) Hx Family Respiratory Disorders: No Hx Family Cancer: Yes Hx Family GI Disorders: No Hx Family Endocrine Disorder: No Hx Family Neuromuscular Disorders: No Hx Family Neurologic Disorders: No Hx Family HEENT Disorders: No Hx Family Autoimmune Disorders: No All Systems: The remainder of the systems were reviewed and are negative Physical Examination Vital Signs: Vital Signs, Last 4 Hours Temp Pulse Resp BP Pulse Ox 01/29/18 08:07 93 01/29/18 07:44 98.2 F 93 20 134/80 93 01/29/18 05:33 98.1 F 95 16 98/64 97 General appearance: no acute distress Effort: normal Auscultation: bilateral: clear (no wheezing ronchi or rales) Cardiovascular: regular rate and rhythm Gastrointestinal: soft, non-tender, non-distended Extremities: no cyanosis, no edema, no clubbing Results - Laboratory Findings CBC and BMP: 01/29/18 03:17 01/29/18 03:17 Abnormal lab findings: Abnormal lab results Hgb 10.7 g/dL (11.5-15.4) L D 01/29/18 03:17 Hct 33.0 % (35.3-44.9) L 01/29/18 03:17 MCH 27.8 pg (28.0-33.3) L 01/29/18 03:17 RDW 15.0 % (11.5-14.5) H 01/29/18 03:17 Plt Count 407 K/mcL (140-400) H 01/29/18 03:17 MPV 7.7 fL (9.4-12.4) L 01/29/18 03:17 Lymphocytes # 0.4 K/mcL (0.6-4.6) L 01/29/18 03:17 Sodium 132 mEq/L (136-145) L 01/29/18 03:17 Glucose 152 mg/dL (70-105) H 01/29/18 03:17 Calculated Osmolality 278 (280-300) L 01/29/18 03:17 B-Natriuretic Peptide 105 pg/mL (Less than 100) H 01/28/18 16:20 - Clinical Findings Intake & Output: Intake & Output 01/28/18 01/29/18 01/29/18 23:59 07:59 15:59 Weight 57.1 kg
--- NOTE | 2018-01-29 09:25 | Internal Med Progress Note ---
<Eulalia Foster - Last Filed: 01/29/18 12:48> Hospitalist Progress Note - Encounter Date of Encounter: 01/29/18 Time of Encounter: 09:00 - Subjective Interval History: Patient seen and examined. No acute events overnight. Patient is sitting comfortably in bed making menu choices. Patient states she feels better. States her shortness of breath is improved but still there. Patient states she feels bloated from using BiPAP. Denies cough. Denies swelling. Denies fever/chills. Patient reports that she had a BiPAP study done 9 months ago at the [facility] and qualified for BiPAP, but was sent a CPAP. States shes been using CPAP every night. Reports she needs to make another appointment with [facility] for new BiPAP study. - Exam Vitals: Temp Pulse Resp BP Pulse Ox 98.2 F 93 20 134/80 93 01/29/18 07:44 01/29/18 07:44 01/29/18 07:44 01/29/18 07:44 01/29/18 08:07 Exam: General: Normal body habitus. Alert and oriented x3. No acute distress. Head: atraumatic, normocephalic. Eye: pupils equal and round. Sclera anicteric. EOMI. Mouth: Mucosa moist. Normal oropharynx, no erythema or exudates. Neck: supple. Trachea midline. Lungs: CTAB. No rhonchi, rales or wheezing. No respiratory distress. No accessory muscle use. Oxygen saturation 93% on 2L NC. Cardiovascular: Normal S1 & S2. No rubs or gallops. Pulse regular. Abdomen: Normal bowel sounds. Tender to palpation at epigastrium. No rigidity, no rebound. Extremities: No joint swelling, edema, or clubbing. Nontender. Skin: warm, dry, and intact. - Assessment and Plan (1) Acute on chronic respiratory failure with hypoxemia Current Visit: No Status: Acute Assessment and Plan: Pt comes in with severe shortness of breath and pursed breathing. Likely secondary to COPD exacerbation and tracheomalacia. ABG showed pH 7.43, pCO2 45, pO2 decreased at 82, and HCO3 elevated at 30. Improved. Continue BIPAP, duonebs, steroids and prophylactic antibiotic. Pulmonology consulted. (2) Tracheomalacia Current Visit: Yes Status: Chronic Assessment and Plan: History of tracheomalacia with recurrent episodes of dyspnea. On BIPAP and nebs. Pulmonology consulted. (3) Acute exacerbation of chronic obstructive airways disease Current Visit: No Status: Acute Assessment and Plan: History of COPD on 2L home oxygen. See #1. Continue nebs, steroids and antibiotics (4) NUBIA (obstructive sleep apnea) Current Visit: No Status: Chronic Assessment and Plan: Continue BIPAP (5) Hypertension Current Visit: No Status: Chronic Assessment and Plan: Continue home meds (6) DVT prophylaxis Current Visit: No Status: Acute Assessment and Plan: Heparin sc (7) Diastolic CHF Current Visit: Yes Status: Chronic Assessment and Plan: Chronic. No acute exacerbation. Continue home meds - Time Spent with Patient Total time spent is greater than 50% in coordination of care (as documented) at patient's floor/unit and/or counseling patient: Internal Medicine: Result - Labs CBC & Chem 7: 01/29/18 03:17 01/29/18 03:17 Labs: Short CBC 01/29/18 Range/Units 03:17 WBC 5.2 (4.3-11.1) K/mcL Hgb 10.7 L D (11.5-15.4) g/dL Hct 33.0 L (35.3-44.9) % Plt Count 407 H (140-400) K/mcL Neutrophils # 4.4 (1.6-8.9) K/mcL BMP 01/29/18 03:17 Sodium 132 L Potassium 4.9 Chloride 98 Carbon Dioxide 28 BUN 15 Creatinine 0.62 Glucose 152 H Calcium 8.9 Urine 01/28/18 Range/Units 19:03 Urine Color Yellow (Yellow) Urine Clarity Clear (Clear) Urine pH 6.5 (5.0-8.0) pH Units Ur Specific [place] 1.020 (1.010-1.025) Urine Protein Negative (Neg-Trace) mg/dL Urine Glucose (UA) Normal (Normal) mg/dL Consult Discharge Plan - Plan Referrals: Paula Casiano PURCHASING INTERN [Primary Care Provider] - <Boubacar Rueda - Last Filed: 01/29/18 15:24> Hospitalist Progress Note - Encounter Date of Encounter: 01/29/18 - Exam Vitals: Temp Pulse Resp BP Pulse Ox 98.8 F 87 20 154/84 98 01/29/18 11:17 01/29/18 11:17 01/29/18 11:33 01/29/18 11:17 01/29/18 11:33 - Assessment and Plan (1) Acute exacerbation of chronic obstructive airways disease Current Visit: No Status: Acute (2) Hypertension Current Visit: No Status: Chronic (3) Acute on chronic respiratory failure with hypoxemia Current Visit: No Status: Acute (4) DVT prophylaxis Current Visit: No Status: Acute (5) Tracheomalacia Current Visit: Yes Status: Chronic (6) NUBIA (obstructive sleep apnea) Current Visit: No Status: Chronic (7) Diastolic CHF Current Visit: Yes Status: Chronic - Time Spent with Patient Total time spent is greater than 50% in coordination of care (as documented) at patient's floor/unit and/or counseling patient: Internal Medicine: Result - Labs CBC & Chem 7: 01/29/18 03:17 01/29/18 03:17 Labs: Short CBC 01/29/18 Range/Units 03:17 WBC 5.2 (4.3-11.1) K/mcL Hgb 10.7 L D (11.5-15.4) g/dL Hct 33.0 L (35.3-44.9) % Plt Count 407 H (140-400) K/mcL Neutrophils # 4.4 (1.6-8.9) K/mcL BMP 01/29/18 03:17 Sodium 132 L Potassium 4.9 Chloride 98 Carbon Dioxide 28 BUN 15 Creatinine 0.62 Glucose 152 H Calcium 8.9 Urine 01/28/18 Range/Units 19:03 Urine Color Yellow (Yellow) Urine Clarity Clear (Clear) Urine pH 6.5 (5.0-8.0) pH Units Ur Specific [place] 1.020 (1.010-1.025) Urine Protein Negative (Neg-Trace) mg/dL Urine Glucose (UA) Normal (Normal) mg/dL - ABG Interpretation ABG results: ABG ABG pH 7.43 pH Units (7.32-7.45) 01/29/18 11:31 ABG pCO2 45 mmHg (35-45) 01/29/18 11:31 ABG pO2 82 mmHg (85-104) L 01/29/18 11:31 ABG O2 Saturation 96 % (95-98) 01/29/18 11:31 - Attending Attestation Seen and assessed Continue management for acute hypoxic resp failure 2/2 to COPD exacerbation and tracheomalacia Appreciate pulm recs Continue BIPAP and plan for outpatient sleep study <Eulalia Foster - Last Filed: 01/29/18 12:48> (5) Hypertension Qualifiers: Hypertension type: essential hypertension Qualified Code(s): I10 - Essential (primary) hypertension (7) Diastolic CHF Qualifiers: Heart failure chronicity: chronic Qualified Code(s): I50.32 - Chronic diastolic (congestive) heart failure <Boubacar Rueda - Last Filed: 01/29/18 15:24> (2) Hypertension Qualifiers: Hypertension type: essential hypertension Qualified Code(s): I10 - Essential (primary) hypertension (7) Diastolic CHF Qualifiers: Heart failure chronicity: chronic Qualified Code(s): I50.32 - Chronic diastolic (congestive) heart failure
[2018-01-29] MEDS: levoFLOXacin 750 MG TABLET PO SCH (09:53)
[2018-01-29] MEDS: MethylPREDNISolone 40 MG/ML VIAL IVP SCH ×2 (09:53→16:27)
[2018-01-29 11:35] LABS: ABG Base Excess 5 mEq/L (-2 to 3); ABG HCO3 30 mEq/L (21-27); ABG Oxygen Saturation 96 % (95-98); ABG PCO2 45 mmHg (35-45); ABG PH 7.43 pH Units (7.32-7.45); ABG PO2 82 mmHg (85-104); ABG TCO2 31 mEq/L (20-26)
[2018-01-29] MEDS ORDERED: GuaiFENesin Liq 200 MG/10 ML UDC PO PRN (12:41)
[2018-01-29] MEDS: Simethicone 80 MG TAB.CHEW PO SCH ×2 (16:27→20:14)
[2018-01-29] MEDS: Oxymetazoline Nasal SPRAY BOTTLE NS PRN (17:57)
[2018-01-29] MEDS: traZODone 50 MG TABLET PO SCH (20:13)
[2018-01-29] MEDS: ALPRAZolam 0.25 MG TABLET PO SCH (21:16)
[2018-01-30] MEDS: MethylPREDNISolone 40 MG/ML VIAL IVP SCH ×4 (00:07→19:00)
[2018-01-30] MEDS: Albuterol 2.5 MG/3 ML NEBULIZER IH SCH ×6 (03:36→23:57)
[2018-01-30 05:17] LABS: Hemoglobin 11.1 g/dL (11.5-15.4); Immature Granulocytes % 0.3 % (0-4); Lymphocytes # 0.4 K/mcL (0.6-4.6); Mean Corpuscular HGB Conc 32.6 g/dL (31.6-35.5); Mean Corpuscular Hemoglobin 27.8 pg (28.0-33.3); Mean Corpuscular Volume 85.2 fL (83.0-100.0); Mean Platelet Volume 7.7 fL (9.4-12.4); Monocytes # 0.2 K/mcL (0.0-1.3); Monocytes % 2.8 %; Neutrophils # 5.6 K/mcL (1.6-8.9); Platelet Count 414 K/mcL (140-400); Red Blood Count 3.99 M/mcL (3.82-4.97); Segmented Neutrophils % 90.9 %
[2018-01-30 05:31] LABS: BUN/Creatinine Ratio 17 (6-26); Blood Urea Nitrogen 11 mg/dL (8-23); Calcium 9.3 mg/dL (8.6-10.3); Carbon Dioxide 29 mEq/L (23-29); Chloride 97 mEq/L (98-107); Glucose 139 mg/dL (70-105); Osmolality,Calculated 276 (280-300); Potassium 4.5 mEq/L (3.5-5.1); Sodium 132 mEq/L (136-145); eGFR For Non-African Americans > 60 (> 60)
[2018-01-30] MEDS ORDERED: *HR* Heparin 5,000 UNIT/ML VIAL ONE (06:49)
[2018-01-30] MEDS: *HR* Heparin 5,000 UNIT/ML VIAL SQ SCH ×2 (07:08→07:10)
[2018-01-30] MEDS: Budesonide/Formoterol 160/4.5 1 PUFF INH IH SCH ×2 (07:31→19:53)
[2018-01-30] MEDS: Tiotropium 18 MCG inhalation IH SCH (07:31)
--- NOTE | 2018-01-30 07:58 | Pulmonology Progress Note ---
<Randal Fair M - Last Filed: 01/30/18 10:50> Date of Encounter: 01/30/18 Objective PUL Vital signs: Last Vital Signs Temp 98.4 F 01/30/18 07:44 Pulse 82 01/30/18 07:44 Resp 20 01/30/18 07:44 BP 148/87 01/30/18 07:44 Pulse Ox 98 01/30/18 07:44 Results - Laboratory Findings CBC and BMP: 01/30/18 04:44 01/30/18 04:44 ABG ABG pH 7.43 pH Units (7.32-7.45) 01/29/18 11:31 ABG pCO2 45 mmHg (35-45) 01/29/18 11:31 ABG pO2 82 mmHg (85-104) L 01/29/18 11:31 ABG O2 Saturation 96 % (95-98) 01/29/18 11:31 Abnormal lab findings: Abnormal lab results Hgb 11.1 g/dL (11.5-15.4) L 01/30/18 04:44 Hct 34.0 % (35.3-44.9) L 01/30/18 04:44 MCH 27.8 pg (28.0-33.3) L 01/30/18 04:44 RDW 15.0 % (11.5-14.5) H 01/30/18 04:44 Plt Count 414 K/mcL (140-400) H 01/30/18 04:44 MPV 7.7 fL (9.4-12.4) L 01/30/18 04:44 Lymphocytes # 0.4 K/mcL (0.6-4.6) L 01/30/18 04:44 ABG pO2 82 mmHg (85-104) L 01/29/18 11:31 ABG HCO3 30 mEq/L (21-27) H 01/29/18 11:31 ABG Total CO2 31 mEq/L (20-26) H 01/29/18 11:31 ABG Base Excess 5 mEq/L (-2 to 3) H 01/29/18 11:31 Sodium 132 mEq/L (136-145) L 01/30/18 04:44 Chloride 97 mEq/L (98-107) L 01/30/18 04:44 Glucose 139 mg/dL (70-105) H 01/30/18 04:44 Calculated Osmolality 276 (280-300) L 01/30/18 04:44 B-Natriuretic Peptide 105 pg/mL (Less than 100) H 01/28/18 16:20 - Clinical Findings Intake & Output: Intake & Output 01/29/18 01/30/18 01/30/18 23:59 07:59 15:59 Intake Total 240 / 240 Balance 240 / 240 Weight 57 kg Consult Discharge Plan - Plan Referrals: Paula Casiano, [employer]ACHINE TENDER [Primary Care Provider] - - Attending Attestation I examined this patient and my medical decision-making was reviewed with the Resident Physician. I agree with the documented findings, disposition and treatment plan as described except to the extent set forth below. Patient seen and examined. Labs, radiology, chart personally reviewed. Agree with resident's history and physical, assessment, plan with following comments: INVESTMENT BANKING ANALYST: Patient follows commands, Pulmonary: Acceptable oxygenation and ventilation. Patient feels better, however she is not at her baseline. I have explained to her to follow-up as outpatient and to call sleep lab and our office for coordination to have her titration for the CPAP which hopefully would help her tracheobronchomalacia. <Madi Yi - Last Filed: 01/30/18 16:21> Date of Encounter: 01/30/18 Time of Encounter: 10:15 Assessment and Plan (1) Acute respiratory distress Current Visit: No Status: Acute Seems is to have resolved. Currently patient is satting at 99% on 2 L. She has been advised to go for sleep study so she can qualify for home BiPAP which currently seems to be the solution for her tracheobronchomalacia symptoms. On physical exam she appears clear to auscultation. (2) Tracheomalacia Current Visit: No Status: Chronic -Patient has a history of tracheal malacia which was diagnosed a few years ago. She used CPAP at home which has not been helping her with the symptoms before she wakes every morning very tired. Patient has a appointment for titration sleep study to qualify for home BiPAP, not been able to keep up with her appointment because of her comorbidities. -She has been educated about surgical treatments like intratracheal stent placement and the fact that risks outweigh their benefits - Patient currently on BiPAP to help with her condition. Recommended outpatient titration sleep study to qualify for home BiPAP. (3) COPD (chronic obstructive pulmonary disease) Current Visit: Yes Status: Acute -Patient has a history of COPD . She's on n 2.5 L of oxygen at home. Takes symbicort 2 puffs BID and Spiriva as her home inhalers . Patient has tried elliptia in the past but it makes her tracheomalacia worse - her most recent ABG showed mixed respiratory acidosis and ,metabolic alkalosis -She has no bilateral wheezes, does have decreased breath sounds. no productive cough or sputum. -Patient has been recommended to continue with her COPD inhalers, secondary smoking prevention. Qualifiers: Qualified Code(s): J44.9 - Chronic obstructive pulmonary disease, unspecified Subjective Principal diagnosis: SOB Interval history: No acute events overnight. Patient endorses of shortness of breath is better than yesterday. She appears to be no acute distress. She is satting at 99% on 2 L of oxygen. Her physical exam was pretty unremarkable, lungs are clear to auscultation bilaterally with no wheezing rhonchi or rales. And has been told to follow up with for a sleep study so she can get a home BiPAP. This is likely very helpful for patient and to prevent recurrent admissions because of tracheomalacia. Objective PUL Vital signs: Last Vital Signs Temp 98.4 F 01/30/18 07:44 Pulse 82 01/30/18 07:44 Resp 20 01/30/18 07:44 BP 148/87 01/30/18 07:44 Pulse Ox 98 01/30/18 07:44 General appearance: no acute distress Effort: normal Auscultation: bilateral: clear Cardiovascular: regular rate and rhythm Gastrointestinal: normoactive bowel sounds, soft, non-tender, non-distended Extremities: no cyanosis, no edema, no clubbing Results - Laboratory Findings CBC and BMP: 01/30/18 04:44 01/30/18 04:44 ABG ABG pH 7.43 pH Units (7.32-7.45) 01/29/18 11:31 ABG pCO2 45 mmHg (35-45) 01/29/18 11:31 ABG pO2 82 mmHg (85-104) L 01/29/18 11:31 ABG O2 Saturation 96 % (95-98) 01/29/18 11:31 Abnormal lab findings: Abnormal lab results Hgb 11.1 g/dL (11.5-15.4) L 01/30/18 04:44 Hct 34.0 % (35.3-44.9) L 01/30/18 04:44 MCH 27.8 pg (28.0-33.3) L 01/30/18 04:44 RDW 15.0 % (11.5-14.5) H 01/30/18 04:44 Plt Count 414 K/mcL (140-400) H 01/30/18 04:44 MPV 7.7 fL (9.4-12.4) L 01/30/18 04:44 Lymphocytes # 0.4 K/mcL (0.6-4.6) L 01/30/18 04:44 ABG pO2 82 mmHg (85-104) L 01/29/18 11:31 ABG HCO3 30 mEq/L (21-27) H 01/29/18 11:31 ABG Total CO2 31 mEq/L (20-26) H 01/29/18 11:31 ABG Base Excess 5 mEq/L (-2 to 3) H 01/29/18 11:31 Sodium 132 mEq/L (136-145) L 01/30/18 04:44 Chloride 97 mEq/L (98-107) L 01/30/18 04:44 Glucose 139 mg/dL (70-105) H 01/30/18 04:44 Calculated Osmolality 276 (280-300) L 01/30/18 04:44 B-Natriuretic Peptide 105 pg/mL (Less than 100) H 01/28/18 16:20 - Clinical Findings Intake & Output: Intake & Output 01/29/18 01/29/18 01/30/18 15:59 23:59 07:59 Intake Total 180 / 180 Output Total 1000 / 1000 Balance -820 / -820 Weight 57 kg
[2018-01-30] MEDS: Aspirin Enteric Coated 81 MG Tablet PO SCH (10:36)
[2018-01-30] MEDS: levoFLOXacin 750 MG TABLET PO SCH (10:36)
[2018-01-30] MEDS: GuaiFENesin Liq 200 MG/10 ML UDC PO PRN ×2 (10:36→23:41)
[2018-01-30] MEDS: Metoprolol XL (24 HR) Succ 25 MG TAB.ER.24H PO SCH ×2 (10:36→22:05)
[2018-01-30] MEDS: methIMAzole 5 MG TABLET PO SCH ×2 (10:37→18:59)
[2018-01-30] MEDS: Simethicone 80 MG TAB.CHEW PO SCH ×4 (10:37→22:05)
--- NOTE | 2018-01-30 10:41 | Discharge Summary ---
<Elualia Foster - Last Filed: 01/30/18 11:02> - NOTES TO OUTPATIENT PROVIDER Notes to Outpatient Provider: Patient needs outpatient BIPAP sleep study to qualify for home BIPAP. Date of Encounter: 01/30/18 Time of Encounter: 10:00 - Discharge Diagnosis (1) Acute on chronic respiratory failure with hypoxemia Priority: Primary Status: Acute (2) Tracheomalacia Priority: Primary Status: Chronic (3) Acute exacerbation of chronic obstructive airways disease Priority: Primary Status: Ruled-out (4) NUBIA (obstructive sleep apnea) Priority: Secondary Status: Chronic (5) Hypertension Priority: Secondary Status: Chronic Qualifiers: Hypertension type: essential hypertension Qualified Code(s): I10 - Essential (primary) hypertension (6) DVT prophylaxis Priority: Secondary Status: Acute (7) Diastolic CHF Priority: Secondary Status: Chronic Qualifiers: Heart failure chronicity: chronic Qualified Code(s): I50.32 - Chronic diastolic (congestive) heart failure Hospital course: Ms. Blackburn is a 72 year old female with PMHx of COPD on 2L home oxygen, tracheomalacia, Graves disease, CHF, HTn, HLD, [place], GERD. Patient presented with complaints of shortness of breath and coughing for over a week. Patient was recently in the hospital and discharged just over 2 weeks ago for same complaint. Describes severe coughing, throat tightness and productive cough. She denies any fevers or chills. She came to the hospital because shortness of breath was getting progressively worse. In the ER, patient was noted to have pursed breathing and was started on BIPAP. Vital signs were stable. CBC was unremarkable. BMP showed mild hyponatremia. Lactic acid was normal. Calcium, magnesium, and phosphorus were normal. Troponin was negative. BNP was elevated at 105. UA was negative. CXR was negative. ABG showed pH 7.43, pCO2 45, pO2 decreased at 82, and HCO3 elevated at 30. Patient admitted with diagnosis of acute on chronic respiratory failure with hypoxemia secondary to tracheomalacia and COPD exacerbation. Treated with BiPAP , bronchodilators, IV steroids, and prophylactic Levaquin. Pulmonology was consulted and determined that dyspnea was all from tracheomalacia and patient does not have COPD exacerbation. Patient has had recurrent hospitalizations for dyspnea from tracheomalacia. Each time, gets better after BiPAP. Pulmonology recommends that patient get outpatient BiPAP sleep study to qualify for home BiPAP. Today, patient states shortness of breath is improved but not at baseline. Patient appears comfortable and in no acute respiratory distress. When asked for further information, patient states she has shortness of breath with exertion. At time of visit, patient is not dyspneic. Patient is at baseline oxygen of 2L and is satting 99%. Lungs are clear auscultation. Patient is determined ready for discharge since symptoms are improved and patient needs outpatient BiPAP sleep study, rather than COPD treatment. - Time Spent with Patient Total time spent providing and/or coordinating discharge services: Greater than 30 minutes (42 minutes) - Discharge Medications Home Medications: Nitroglycerin [Nitrostat] 0.4 mg SL Q5M PRN 11/22/15 [History] Acetaminophen [Tylenol] 1,000 mg PO Q6HR PRN 12/20/15 [History] Tiotropium [Spiriva] 18 mcg IH 0800 01/04/16 [History] Albuterol Sulfate [Proair Hfa] 2 puff IH Q4H PRN 11/17/16 [History] Aspirin [Lo-Dose Aspirin EC] 81 mg PO DAILY 11/17/16 [History] Simethicone [Gas-X] 80 mg PO QID 12/26/16 [History] Budesonide/Formoterol 160/4.5 [Symbicort 160/4.5] 2 puff IH BIDR 02/19/17 [ History] Guaifenesin [Mucinex] 600 mg PO 199902/19/17 [History] Oxygen 1.5 l NS AD #0 02/24/17 [Rx] Bisacodyl [Dulcolax] 10 mg RC DAILY PRN 08/05/17 [History] Docusate [Colace] 100 mg PO BID 08/05/17 [History] Lactulose [Enulose] 30 ml PO DAILY PRN 08/05/17 [History] Multivitamin [One Daily Essential] 1 tab PO DAILY 08/05/17 [History] ALPRAZolam [Xanax 0.25 MG Tablet] 0.25 mg PO DAILY PRN 01/09/18 [History] ALPRAZolam [Xanax 0.25 MG Tablet] 0.5 mg PO HS 01/09/18 [History] Cetirizine HCl [All Day Allergy] 10 mg PO DAILY PRN 01/09/18 [History] Clopidogrel [Plavix] 75 mg PO DAILY 01/09/18 [History] Diclofenac Sodium [Voltaren] 1 appl TP DAILY PRN 01/09/18 [History] GuaiFENesin Liq [Robitussin Liq] 50 - 100 mg PO Q4H PRN 01/09/18 [History] Loratadine [Claritin] 10 mg PO DAILY 01/09/18 [History] Metoprolol Succinate [Toprol Xl] 25 mg PO BID 01/09/18 [History] Oxymetazoline [Afrin] 1 spray NS Q12HR PRN 01/09/18 [History] Polyvinyl Alcohol [Artificial Tears] 2 drop BOTH EYES DAILY PRN 01/09/18 [ History] Rabeprazole Sodium [Aciphex] 20 mg PO BID 01/09/18 [History] Trazodone HCl 50 mg PO HS 01/09/18 [History] methIMAzole [Tapazole] 5 mg PO 0900,1700 01/09/18 [History] Levofloxacin [Levaquin] 500 mg PO DAILY #3 tablet 01/11/18 [Rx] Lisinopril [Zestril] 2.5 mg PO DAILY 01/28/18 [History] Allergies/Adverse Reactions: 3 Allergy/AdvReac Type Severity Reaction Status Date / Time acetylcysteine Allergy Severe Anaphylaxis Verified 01/09/18 07:59 ramelteon [From Rozerem] Allergy Difficulty Verified 01/09/18 07:59 Breathing Amoxicillin [From Augmentin] AdvReac Intermediate Nausea Verified 01/09/18 07:59 azithromycin [From Zithromax] AdvReac Intermediate Nausea Verified 01/09/18 07: 59 clavulanic acid AdvReac Intermediate Nausea Verified 01/09/18 07:59 [From Augmentin] dexlansoprazole AdvReac Mild Headache Verified 01/09/18 07:59 [From Dexilant] prednisone AdvReac Mild See Verified 01/09/18 07:59 Comments sertraline [From Zoloft] AdvReac Mild Depression Verified 01/09/18 07:59 Tetracycline AdvReac Mild Nausea Verified 01/09/18 07:59 Varenicline [From Chantix] AdvReac Mild Nightmare Verified 01/09/18 07:59 Date of admission: 01/28/18 18:48 Primary care physician: Paula Casiano CNP Consults: 01/29/18 08:28 Consult to Pulmonology [CONS] Routine Consulting Provider: [facility] [place] Reason for Consult: COPD and tracheomalacia with recurrent exacerbations Call Completed: Yes Discharging clinician: Eulalia Foster Anticipated date of discharge: 01/30/18 - Constitutional Vitals: Temp Pulse Resp BP Pulse Ox 98.4 F 82 20 148/87 98 01/30/18 07:44 01/30/18 07:44 01/30/18 07:44 01/30/18 07:44 01/30/18 07:44 General appearance: Present: cachectic Exam: General: Normal body habitus. Alert and oriented x3. No acute distress. Head: atraumatic, normocephalic. Eye: pupils equal and round. Sclera anicteric. EOMI. Mouth: Mucosa moist. Normal oropharynx, no erythema or exudates. Neck: supple. Trachea midline. Lungs: CTAB. No rhonchi, rales or wheezing. No respiratory distress. No accessory muscle use. Oxygen saturation 99% on 2L NC. Cardiovascular: Normal S1 & S2. No rubs or gallops. Pulse regular. Abdomen: Normal bowel sounds. Tender to palpation at epigastrium. No rigidity, no rebound. Extremities: No joint swelling, edema, or clubbing. Nontender. Skin: warm, dry, and intact. - Patient Status Disposition: Home, Self-Care Condition: Fair - Discharge Instructions Follow Up With: Paula Casiano CNP [Primary Care Provider] - - Diet and Activity Activity: increase activity as tolerated Diet: low fat, low cholesterol, low salt diet <Boubacar Rueda A - Last Filed: 01/30/18 14:46> Orders not resulted at time of discharge: Pending orders 01/31/18 04:00 BMP [Basic Metabolic Panel] AM 0400 Complete Blood Count [HEME] AM 0400 02/01/18 04:00 BMP [Basic Metabolic Panel] AM 0400 Complete Blood Count [HEME] AM 0400 02/02/18 04:00 BMP [Basic Metabolic Panel] AM 0400 Complete Blood Count [HEME] AM 0400 02/03/18 04:00 BMP [Basic Metabolic Panel] AM 0400 Complete Blood Count [HEME] AM 0400 02/04/18 04:00 BMP [Basic Metabolic Panel] AM 0400 Complete Blood Count [HEME] AM 0400 Date of Encounter: 01/30/18 - Discharge Diagnosis (1) Acute exacerbation of chronic obstructive airways disease Status: Ruled-out (2) Hypertension Status: Chronic Qualifiers: Hypertension type: essential hypertension Qualified Code(s): I10 - Essential (primary) hypertension (3) Acute on chronic respiratory failure with hypoxemia Status: Acute (4) DVT prophylaxis Status: Acute (5) Tracheomalacia Status: Chronic (6) NUBIA (obstructive sleep apnea) Status: Chronic (7) Diastolic CHF Status: Chronic Qualifiers: Heart failure chronicity: chronic Qualified Code(s): I50.32 - Chronic diastolic (congestive) heart failure Hospital course: Ms. Blackburn is a 72 year old female - Time Spent with Patient Total time spent providing and/or coordinating discharge services: Date of admission: 01/28/18 18:48 Primary care physician: Paula Casiano CNP Consults: 01/29/18 08:28 Consult to Pulmonology [CONS] Routine Consulting Provider: [facility] [place] Reason for Consult: COPD and tracheomalacia with recurrent exacerbations Call Completed: Yes - Constitutional Vitals: Temp Pulse Resp BP Pulse Ox 98.4 F 86 19 170/94 99 01/30/18 11:27 01/30/18 11:27 01/30/18 11:27 01/30/18 11:27 01/30/18 11:38 - Attending Attestation Ms. Blackburn is a 72 year old female with PMHx of COPD on 2L home oxygen, tracheomalacia, Graves disease, CHF, HTn, HLD, [place], GERD. Patient presented with complaints of shortness of breath and coughing for over a week. Patient was recently in the hospital and discharged just over 2 weeks ago for same complaint. Describes severe coughing, throat tightness and productive cough. She denies any fevers or chills. She came to the hospital because shortness of breath was getting progressively worse. She was started on IV steroids , nebs, antibiotics and BIPA. She was seen by pulmoanry who determined her shortness of breath is due to her tracheomalacia, and will need an outpatient sleep study and BIPAP. Patient was cleared and medically stable for discharge but declined saying she wants one more day fo IV steroids. And would likel to appeal her discharge. secondary social studies teacher notified. Will continue BIPAP, breathing treatments and steroids as indicated
[2018-01-30] MEDS: ALPRAZolam 0.25 MG TABLET PO PRN (14:06)
[2018-01-30] MEDS: ALPRAZolam 0.25 MG TABLET PO SCH (22:05)
[2018-01-30] MEDS: traZODone 50 MG TABLET PO SCH (22:05)
[2018-01-31] MEDS: Albuterol 2.5 MG/3 ML NEBULIZER IH SCH ×3 (03:58→11:14)
[2018-01-31 04:25] LABS: Basophils % 0.1 %; Hematocrit 33.1 % (35.3-44.9); Hemoglobin 11.2 g/dL (11.5-15.4); Immature Granulocytes % 0.4 % (0-4); Lymphocytes # 0.7 K/mcL (0.6-4.6); Lymphocytes % 9.8 %; Mean Corpuscular HGB Conc 33.8 g/dL (31.6-35.5); Mean Corpuscular Hemoglobin 28.4 pg (28.0-33.3); Mean Platelet Volume 7.8 fL (9.4-12.4); Monocytes # 0.5 K/mcL (0.0-1.3); Monocytes % 7.2 %; Neutrophils # 6.2 K/mcL (1.6-8.9); Platelet Count 398 K/mcL (140-400); Red Blood Count 3.94 M/mcL (3.82-4.97); Red Cell Distribution Width 15.1 % (11.5-14.5); Segmented Neutrophils % 82.5 %
[2018-01-31 04:43] LABS: BUN/Creatinine Ratio 19 (6-26); Blood Urea Nitrogen 12 mg/dL (8-23); Calcium 9.1 mg/dL (8.6-10.3); Carbon Dioxide 30 mEq/L (23-29); Chloride 96 mEq/L (98-107); Glucose 123 mg/dL (70-105); Osmolality,Calculated 269 (280-300); Potassium 4.5 mEq/L (3.5-5.1); Sodium 129 mEq/L (136-145); eGFR For Non-African Americans > 60 (> 60)
[2018-01-31] MEDS ORDERED: *HR* Heparin 5,000 UNIT/ML VIAL ONE (05:53)
[2018-01-31] MEDS: *HR* Heparin 5,000 UNIT/ML VIAL SQ SCH (06:21)
[2018-01-31] MEDS: MethylPREDNISolone 40 MG/ML VIAL IVP SCH (06:22)
[2018-01-31] MEDS: Budesonide/Formoterol 160/4.5 1 PUFF INH IH SCH (07:37)
[2018-01-31] MEDS: Tiotropium 18 MCG inhalation IH SCH (07:38)
--- NOTE | 2018-01-31 08:04 | Internal Med Progress Note ---
Hospitalist Progress Note - Encounter Date of Encounter: 01/31/18 Time of Encounter: 08:00 - Exam Vitals: Temp Pulse Resp BP Pulse Ox 98.1 F 80 17 154/84 99 01/31/18 04:08 01/31/18 04:08 01/31/18 04:08 01/31/18 04:08 01/31/18 04:08 Exam: General: Normal body habitus. Alert and oriented x3. No acute distress. Head: atraumatic, normocephalic. Eye: pupils equal and round. Sclera anicteric. EOMI. Mouth: Mucosa moist. Normal oropharynx, no erythema or exudates. Neck: supple. Trachea midline. Lungs: CTAB. No rhonchi, rales or wheezing. No respiratory distress. No accessory muscle use. Oxygen saturation 99% on 2L NC. Cardiovascular: Normal S1 & S2. No rubs or gallops. Pulse regular. Abdomen: Normal bowel sounds. Tender to palpation at epigastrium. No rigidity, no rebound. Extremities: No joint swelling, edema, or clubbing. Nontender. Skin: warm, dry, and intact. - Assessment and Plan (1) Acute on chronic respiratory failure with hypoxemia Current Visit: No Status: Acute Assessment and Plan: Pt comes in with severe shortness of breath and pursed breathing. Likely secondary to COPD exacerbation and tracheomalacia. ABG showed pH 7.43, pCO2 45, pO2 decreased at 82, and HCO3 elevated at 30. Improved. Continue BIPAP, duonebs, steroids and prophylactic antibiotic. Seen by pulmonary who recommend outpatient sleep study and home bipap for her tracheomalacia (2) Acute exacerbation of chronic obstructive airways disease Current Visit: No Status: Ruled-out Assessment and Plan: History of COPD on 2L home oxygen. See #1. Continue nebs, steroids and antibiotics (3) Hypertension Current Visit: No Status: Chronic Assessment and Plan: Continue home meds (4) DVT prophylaxis Current Visit: No Status: Acute Assessment and Plan: Heparin sc (5) Tracheomalacia Current Visit: Yes Status: Chronic Assessment and Plan: History of tracheomalacia with recurrent episodes of dyspnea. On BIPAP and nebs. Pulmonology consulted. (6) NUBIA (obstructive sleep apnea) Current Visit: No Status: Chronic Assessment and Plan: Continue BIPAP (7) Diastolic CHF Current Visit: Yes Status: Chronic Assessment and Plan: Chronic. No acute exacerbation. Continue home meds - Time Spent with Patient Total time spent is greater than 50% in coordination of care (as documented) at patient's floor/unit and/or counseling patient: Internal Medicine: Result - Labs CBC & Chem 7: 01/31/18 04:04 01/31/18 04:04 Labs: Short CBC 01/31/18 Range/Units 04:04 WBC 7.5 (4.3-11.1) K/mcL Hgb 11.2 L (11.5-15.4) g/dL Hct 33.1 L (35.3-44.9) % Plt Count 398 (140-400) K/mcL Neutrophils # 6.2 (1.6-8.9) K/mcL BMP 01/31/18 04:04 Sodium 129 L Potassium 4.5 Chloride 96 L Carbon Dioxide 30 H BUN 12 Creatinine 0.62 Glucose 123 H Calcium 9.1 - ABG Interpretation ABG results: ABG ABG pH 7.43 pH Units (7.32-7.45) 01/29/18 11:31 ABG pCO2 45 mmHg (35-45) 01/29/18 11:31 ABG pO2 82 mmHg (85-104) L 01/29/18 11:31 ABG O2 Saturation 96 % (95-98) 01/29/18 11:31 Consult Discharge Plan - Plan Instructions: Prednisone (By mouth), Levofloxacin (By mouth), COPD Exacerbation , [employer] Feeder (GEN) Referrals: Paula Casiano, VETERINARY VIROLOGIST [Primary Care Provider] - (Web-request completed ) Prescriptions: Levofloxacin [Levaquin] 500 mg PO DAILY #3 tablet predniSONE [PredniSONE] 40 mg PO DAILY 5 Days #10 tablet (3) Hypertension Qualifiers: Hypertension type: essential hypertension Qualified Code(s): I10 - Essential (primary) hypertension (7) Diastolic CHF Qualifiers: Heart failure chronicity: chronic Qualified Code(s): I50.32 - Chronic diastolic (congestive) heart failure
[2018-01-31] MEDS: levoFLOXacin 750 MG TABLET PO SCH (09:27)
[2018-01-31] MEDS: Simethicone 80 MG TAB.CHEW PO SCH ×2 (09:27→11:53)
[2018-01-31] MEDS: GuaiFENesin Liq 200 MG/10 ML UDC PO PRN (09:27)
[2018-01-31] MEDS: Metoprolol XL (24 HR) Succ 25 MG TAB.ER.24H PO SCH (09:28)
[2018-01-31] MEDS: Aspirin Enteric Coated 81 MG Tablet PO SCH (09:28)
[2018-01-31] MEDS: methIMAzole 5 MG TABLET PO SCH (09:28)
--- NOTE | 2018-01-31 10:34 | Physician Discharge Referral ---
- Diagnosis (1) Acute on chronic respiratory failure with hypoxemia Priority: Primary Status: Acute (2) Acute exacerbation of chronic obstructive airways disease Priority: Primary Status: Ruled-out (3) Hypertension Priority: Primary Status: Chronic (4) DVT prophylaxis Priority: Primary Status: Acute (5) Tracheomalacia Priority: Primary Status: Chronic (6) NUBIA (obstructive sleep apnea) Priority: Primary Status: Chronic (7) Diastolic CHF Status: Chronic - Transfer Medications Prescriptions: Levofloxacin [Levaquin] 500 mg PO DAILY #3 tablet predniSONE [PredniSONE] 40 mg PO DAILY 5 Days #10 tablet Home Medications: Nitroglycerin [Nitrostat] 0.4 mg SL Q5M PRN 11/22/15 [History] Acetaminophen [Tylenol] 1,000 mg PO Q6HR PRN 12/20/15 [History] Tiotropium [Spiriva] 18 mcg IH 0800 01/04/16 [History] Albuterol Sulfate [Proair Hfa] 2 puff IH Q4H PRN 11/17/16 [History] Aspirin [Lo-Dose Aspirin EC] 81 mg PO DAILY 11/17/16 [History] Simethicone [Gas-X] 80 mg PO QID 12/26/16 [History] Budesonide/Formoterol 160/4.5 [Symbicort 160/4.5] 2 puff IH BIDR 02/19/17 [ History] Guaifenesin [Mucinex] 600 mg PO 199902/19/17 [History] Oxygen 1.5 l NS AD #0 02/24/17 [Rx] Bisacodyl [Dulcolax] 10 mg RC DAILY PRN 08/05/17 [History] Docusate [Colace] 100 mg PO BID 08/05/17 [History] Lactulose [Enulose] 30 ml PO DAILY PRN 08/05/17 [History] Multivitamin [One Daily Essential] 1 tab PO DAILY 08/05/17 [History] ALPRAZolam [Xanax 0.25 MG Tablet] 0.25 mg PO DAILY PRN 01/09/18 [History] ALPRAZolam [Xanax 0.25 MG Tablet] 0.5 mg PO HS 01/09/18 [History] Cetirizine HCl [All Day Allergy] 10 mg PO DAILY PRN 01/09/18 [History] Clopidogrel [Plavix] 75 mg PO DAILY 01/09/18 [History] Diclofenac Sodium [Voltaren] 1 appl TP DAILY PRN 01/09/18 [History] GuaiFENesin Liq [Robitussin Liq] 50 - 100 mg PO Q4H PRN 01/09/18 [History] Loratadine [Claritin] 10 mg PO DAILY 01/09/18 [History] Metoprolol Succinate [Toprol Xl] 25 mg PO BID 01/09/18 [History] Oxymetazoline [Afrin] 1 spray NS Q12HR PRN 01/09/18 [History] Polyvinyl Alcohol [Artificial Tears] 2 drop BOTH EYES DAILY PRN 01/09/18 [ History] Rabeprazole Sodium [Aciphex] 20 mg PO BID 01/09/18 [History] Trazodone HCl 50 mg PO HS 01/09/18 [History] methIMAzole [Tapazole] 5 mg PO 0900,1700 01/09/18 [History] Lisinopril [Zestril] 2.5 mg PO DAILY 01/28/18 [History] Levofloxacin [Levaquin] 500 mg PO DAILY #3 tablet 01/31/18 [Rx] predniSONE [PredniSONE] 40 mg PO DAILY 5 Days #10 tablet 01/31/18 [Rx] Allergies/Adverse Reactions: 3 Allergy/AdvReac Type Severity Reaction Status Date / Time acetylcysteine Allergy Severe Anaphylaxis Verified 01/09/18 07:59 ramelteon [From Rozerem] Allergy Difficulty Verified 01/09/18 07:59 Breathing Amoxicillin [From Augmentin] AdvReac Intermediate Nausea Verified 01/09/18 07:59 azithromycin [From Zithromax] AdvReac Intermediate Nausea Verified 01/09/18 07: 59 clavulanic acid AdvReac Intermediate Nausea Verified 01/09/18 07:59 [From Augmentin] dexlansoprazole AdvReac Mild Headache Verified 01/09/18 07:59 [From Dexilant] prednisone AdvReac Mild See Verified 01/09/18 07:59 Comments sertraline [From Zoloft] AdvReac Mild Depression Verified 01/09/18 07:59 Tetracycline AdvReac Mild Nausea Verified 01/09/18 07:59 Varenicline [From Chantix] AdvReac Mild Nightmare Verified 01/09/18 07:59 - Respiratory Orders Smoking Cessation: Smoking cessation has been advised. For more information, call the [place] Tobacco Quit Line at 7-121-YVAS-NOW. - Mobility Orders Ambulate - Rehabiliation Orders Rehab Potential: Fair - Diet Orders Cardiac CERTIFICATION: I certify that the transfer of the above named patient to an Extended Care Facility is necessary for the continuing treatment of the diagnosis listed. The above information is true and accurate reflection of patient's current condition. Confidential - Redisclosure prohibited without a patient's written consent.
--- NOTE | 2018-01-31 11:15 | Electrocardiograph Report ---
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
[2018-01-31 11:26] VITALS: BP 149/99
[2018-01-31] MEDS: Oxymetazoline Nasal SPRAY BOTTLE NS PRN (11:53)
[2018-01-31] MEDS: ALPRAZolam 0.25 MG TABLET PO PRN (12:02)
[2018-02-01] MEDS ORDERED: MethylPREDNISolone 40 MG/ML VIAL IVP SCH (09:00)
== END 2018-01-31 14:00 | disposition home or self-care (01) | DRG 190 ==
LOC: EMEROOARM 15:21 → 2ANU 18:48
PROVIDERS: ADMIT Internal Medicine; ATTEND Internal Medicine

== ENCOUNTER 2018-11-10 07:20 | Inpatient (IN) ==
[2018-11-10 08:48] LABS: Basophils # 0.1 K/mcL (0.0-0.2); Basophils % 0.7 %; Eosinophils # 0.1 K/mcL (0.0-0.6); Hematocrit 37.8 % (35.3-44.9); Hemoglobin 12.8 g/dL (11.5-15.4); Immature Granulocytes % 0.4 % (0-4); Lymphocytes # 0.8 K/mcL (0.6-4.6); Lymphocytes % 9.5 %; Mean Corpuscular HGB Conc 33.9 g/dL (31.6-35.5); Mean Corpuscular Hemoglobin 31.8 pg (28.0-33.3); Mean Corpuscular Volume 93.8 fL (83.0-100.0); Mean Platelet Volume 7.7 fL (9.4-12.4); Monocytes # 0.8 K/mcL (0.0-1.3); Monocytes % 9.8 %; Neutrophils # 6.4 K/mcL (1.6-8.9); Platelet Count 421 K/mcL (140-400); Red Blood Count 4.03 M/mcL (3.82-4.97); Segmented Neutrophils % 78.6 %; White Blood Count 8.2 K/mcL (4.3-11.1)
[2018-11-10] MEDS ORDERED: Albuterol 2.5 MG/3 ML NEBULIZER IH ONE (08:55)
--- NOTE | 2018-11-10 08:56 | Emergency Department Note ---
Disposition Clinical Impression: Right leg weakness Hypertension Qualifiers: Hypertension type: unspecified Qualified Code(s): I10 - Essential (primary) hypertension Disposition: Admitted As Inpatient Condition: Fair Time of Disposition: 09:29 SOB HPI - General Chief Complaint: ED Shortness of Breath/Dyspnea Stated Complaint: VERO Time Seen by Provider: 11/10/18 07:37 Source: patient, EMS Limitations: no limitations Nursing Notes Reviewed: Yes Vital Signs Reviewed: Yes - History of Present Illness 73-year-old female presents emergency Department with concerns of difficulty in breathing as well as weakness in the right lower extremity. Patient states she woke yesterday with weakness the right lower extremity and has had difficulty with ambulation throughout the day yesterday. The symptoms did not resolve states that she came in for further evaluation. She does state that she has a history of tracheomalacia - Related Data Home Medications Medication Instructions Recorded Confirmed Nitroglycerin [Nitrostat] 0.4 mg SL Q5M PRN 11/22/15 11/10/18 Acetaminophen [Tylenol] 1,000 mg PO Q6HR PRN 12/20/15 11/10/18 Tiotropium [Spiriva] 18 mcg IH 0800 01/04/16 11/10/18 Albuterol Sulfate [Proair Hfa] 2 puff IH Q4H PRN 11/17/16 11/10/18 Aspirin [Lo-Dose Aspirin EC] 81 mg PO DAILY 11/17/16 11/10/18 Simethicone [Gas-X] 80 mg PO 1-3XD PRN 12/26/16 11/10/18 Budesonide/Formoterol 160/4.5 2 puff IH BIDR 02/19/17 11/10/18 [Symbicort 160/4.5] Bisacodyl [Dulcolax] 10 mg RC DAILY PRN 08/05/17 11/10/18 Docusate [Colace] 200 mg PO TID 08/05/17 11/10/18 Multivitamin [One Daily Essential] 1 tab PO DAILY 08/05/17 11/10/18 ALPRAZolam [Xanax 0.25 MG Tablet] 0.25 mg PO DAILY PRN 01/09/18 11/10/18 Clopidogrel [Plavix] 75 mg PO DAILY 01/09/18 11/10/18 Diclofenac Sodium [Voltaren] 1 appl TP DAILY PRN 01/09/18 11/10/18 GuaiFENesin Liq [Robitussin Liq] 200 mg PO Q4H PRN 01/09/18 11/10/18 Metoprolol Succinate [Toprol Xl] 25 mg PO BID 01/09/18 11/10/18 Oxymetazoline [Afrin] 1 spray NS Q12HR PRN 01/09/18 11/10/18 methIMAzole [Tapazole] 7.5 mg PO DAILY 01/09/18 11/10/18 ALPRAZolam [Xanax 0.5 MG Tablet] 0.5 mg PO HS 11/10/18 11/10/18 Cetirizine HCl [Allergy Relief] 10 mg PO DAILY 11/10/18 11/10/18 Fluticasone Propionate Nasal 2 spray NS BID 11/10/18 11/10/18 [Flonase] Guaifenesin [Mucinex] 600 mg PO Q12H 11/10/18 11/10/18 Isosorbide MONOnitrate [Isosorbide 30 mg PO QAM 11/10/18 11/10/18 Mononitrate ER] Lactulose 10 gm PO BID 11/10/18 11/10/18 Levocetirizine Dihydrochloride 5 mg PO DAILY 11/10/18 11/10/18 [Allergy Relief (Xyzal)] Lisinopril 2.5 mg PO DAILY 11/10/18 11/10/18 Loratadine [Claritin] 5 mg PO BID 11/10/18 11/10/18 Oxygen 2.5 l NS AD 11/10/18 11/10/18 Polyvinyl Alcohol [Artificial 1 drop BOTH EYES QID PRN 11/10/18 11/10/18 Tears] Rabeprazole Sodium [Aciphex] 20 mg PO DAILY 11/10/18 11/10/18 Selenium 200 mcg PO DAILY 11/10/18 11/10/18 Allergies Allergy/AdvReac Type Severity Reaction Status Date / Time acetylcysteine Allergy Severe Anaphylaxis Verified 11/10/18 21:02 albuterol [From DuoNeb] Allergy See Verified 11/10/18 21:02 Comments amlodipine [From Norvasc] Allergy See Verified 11/10/18 21:02 Comments carvedilol [From Coreg] Allergy See Verified 11/10/18 21:02 Comments cefdinir Allergy See Verified 11/10/18 21:02 Comments diltiazem [From Cardizem] Allergy See Verified 11/10/18 21:02 Comments ipratropium [From Atrovent] Allergy See Verified 11/10/18 21:02 Comments levofloxacin [From Levaquin] Allergy See Verified 11/10/18 21:02 Comments metoclopramide [From Reglan] Allergy See Verified 11/10/18 21:02 Comments metoprolol Allergy See Verified 11/10/18 21:02 Comments ramelteon [From Rozerem] Allergy Difficulty Verified 11/10/18 21:02 Breathing roflumilast [From Daliresp] Allergy See Verified 11/10/18 21:02 Comments Amoxicillin [From Augmentin] AdvReac Intermediate Nausea Verified 11/10/18 21:02 azithromycin [From Zithromax] AdvReac Intermediate Nausea Verified 11/10/18 21:02 clavulanic acid AdvReac Intermediate Nausea Verified 11/10/18 21:02 [From Augmentin] dexlansoprazole AdvReac Mild Headache Verified 11/10/18 21:02 [From Dexilant] prednisone AdvReac Mild See Verified 11/10/18 21:02 Comments sertraline [From Zoloft] AdvReac Mild Depression Verified 11/10/18 21:02 tetracycline [Tetracycline] AdvReac Mild Nausea Verified 11/10/18 21:02 Varenicline [From Chantix] AdvReac Mild Nightmare Verified 11/10/18 21:02 All systems ED: reviewed and negative except as stated. Review of Systems: As Per HPI Past Medical History - Past Medical History Attestation: Yes The following information was validated with the patient. Source: patient Medical history: Reports: asthma, cancer, cardiomyopathy, CHF, COPD, coronary artery disease, GERD, hyperlipidemia, hypertension, myocardial infarction, osteoporosis, pulmonary embolus, thyroid disease, other Surgical history: Reports: angioplasty/stent, cancer surgery, cataract, cholecystectomy, sinus surgery Psychiatric history: Reports: anxiety, depression LOADERS history: Reports: other - Social History Smoking Status: Former smoker Smokeless Tobacco Status: No Alcohol use: Reports: none Drug use: Reports: none Physical Exam General: Alert and in no acute distress Skin: Warm, dry, intact Head: Normocephalic and atraumatic Neck: Supple, trachea midline and no tenderness Cardiovascular: RRR, no murmur, normal perfusion Respiratory: CTAB, no wheezing, cough, or respiratory distress Musculoskeletal: Normal strength, no tenderness, swelling or deformity GI: Soft, nontender, nondistended. Bowel sounds present Neuro: A&O to person, place, time and situation. Patient has 3 out of 5 weakness to the right lower extremity with difficulty of [id number] testing as well. Psychiatric: cooperative and appropriate mood and affect. - General Limitations: no limitations General appearance: alert Course Vital Signs Temperature 98.3 F 11/10/18 07:30 Pulse Rate 93 11/10/18 07:30 Respiratory Rate 26 11/10/18 07:30 Blood Pressure 183/146 11/10/18 07:30 O2 Sat by Pulse Oximetry 99 11/10/18 07:30 Temperature 97.4 F L 11/11/18 10:26 Pulse Rate 91 11/11/18 10:26 Respiratory Rate 18 11/11/18 12:02 Blood Pressure 138/85 11/11/18 10:26 O2 Sat by Pulse Oximetry 94 11/11/18 12:02 Oxygen Delivery Oxygen Delivery Nasal Cannula Shortness of Breath/Dyspnea - [facility] Narrative Medical decision making narrative: I am concerned about possible CVA with weakness in the right lower extremity. Patient does have elevated blood pressure and she was ordered her daily medications. I have also ordered labetalol to treat her hypertension. She is awake alert and answers questions appropriately emergency department. Breathing improved with albuterol emergency department. She does have a history of tracheomalacia and breathes with pursed lip breathing at baseline. Patient will be admitted to the hospitalist for further care and evaluation. - Medical Records Medical records reviewed: Yes I reviewed the patient's medical records. - Lab Data Lab results reviewed: Yes I reviewed the patient's lab results. Result diagrams: 11/10/18 08:26 11/11/18 09:45 Lab Results 11/10/18 11/10/18 11/10/18 Range/Units 08:26 08:26 08:26 WBC 8.2 (4.3-11.1) K/mcL RBC 4.03 (3.82-4.97) M/mcL Hgb 12.8 (11.5-15.4) g/dL Hct 37.8 (35.3-44.9) % MCV 93.8 (83.0-100.0) fL MCH 31.8 (28.0-33.3) pg MCHC 33.9 (31.6-35.5) g/dL RDW 13.0 (11.5-14.5) % Plt Count 421 H (140-400) K/mcL MPV 7.7 L (9.4-12.4) fL Immature Gran % 0.4 (0-4) % Seg Neutrophils % 78.6 % Lymphocytes % 9.5 % Monocytes % 9.8 % Eosinophils % 1.0 % Basophils % 0.7 % Neutrophils # 6.4 (1.6-8.9) K/mcL Lymphocytes # 0.8 (0.6-4.6) K/mcL Monocytes # 0.8 (0.0-1.3) K/mcL Eosinophils # 0.1 (0.0-0.6) K/mcL Basophils # 0.1 (0.0-0.2) K/mcL PT (9.4-12.1) Seconds INR Sodium 125 L (136-145) mEq/L Potassium 4.3 (3.5-5.1) mEq/L Chloride 88 L (98-107) mEq/L Carbon Dioxide 27 (23-29) mEq/L BUN 9 (8-23) mg/dL Creatinine 0.54 L (0.60-1.20) mg/dL Est GFR ( Amer) > 60 (> 60) Est GFR (Non-Af Amer) > 60 (> 60) BUN/Creatinine Ratio 17 (6-26) Glucose 112 H (70-105) mg/dL Calculated Osmolality 259 L (280-300) Lactic Acid 0.7 (0.5-2.2) mmol/L Calcium 9.2 (8.6-10.3) mg/dL Troponin I < 0.03 (< 0.04) ng/mL B-Natriuretic Peptide (Less than 100) pg/mL Procalcitonin (0.00-0.15) ng/mL Urine Color (Yellow) Urine Clarity (Clear) Urine pH (5.0-8.0) pH Units Ur Specific [place] (1.010-1.025) Urine Protein (Neg-Trace) mg/dL Urine Glucose (UA) (Normal) mg/dL Urine Ketones (Negative) mg/dL Urine Blood (Negative) Urine Nitrite (Negative) Urine Bilirubin (Negative) Urine Urobilinogen (Normal) mg/dL Ur Leukocyte Esterase (Negative) Urine Microscopic RBC (0-3) per hpf Urine Microscopic WBC (0-3) per hpf Ur Squamous Epith Cells (None-Few) per lpf Urine Bacteria (None-Few) per hpf Hyaline Casts (None-Few) per lpf Ur Culture Indicated? (NO) 11/10/18 11/10/18 11/10/18 Range/Units 08:26 08:26 08:26 WBC (4.3-11.1) K/mcL RBC (3.82-4.97) M/mcL Hgb (11.5-15.4) g/dL Hct (35.3-44.9) % MCV (83.0-100.0) fL MCH (28.0-33.3) pg MCHC (31.6-35.5) g/dL RDW (11.5-14.5) % Plt Count (140-400) K/mcL MPV (9.4-12.4) fL Immature Gran % (0-4) % Seg Neutrophils % % Lymphocytes % % Monocytes % % Eosinophils % % Basophils % % Neutrophils # (1.6-8.9) K/mcL Lymphocytes # (0.6-4.6) K/mcL Monocytes # (0.0-1.3) K/mcL Eosinophils # (0.0-0.6) K/mcL Basophils # (0.0-0.2) K/mcL PT 11.0 (9.4-12.1) Seconds INR 1.0 Sodium (136-145) mEq/L Potassium (3.5-5.1) mEq/L Chloride (98-107) mEq/L Carbon Dioxide (23-29) mEq/L BUN (8-23) mg/dL Creatinine (0.60-1.20) mg/dL Est GFR ( Amer) (> 60) Est GFR (Non-Af Amer) (> 60) BUN/Creatinine Ratio (6-26) Glucose (70-105) mg/dL Calculated Osmolality (280-300) Lactic Acid (0.5-2.2) mmol/L Calcium (8.6-10.3) mg/dL Troponin I (< 0.04) ng/mL B-Natriuretic Peptide 254 H (Less than 100) pg/mL Procalcitonin 0.03 (0.00-0.15) ng/mL Urine Color (Yellow) Urine Clarity (Clear) Urine pH (5.0-8.0) pH Units Ur Specific [place] (1.010-1.025) Urine Protein (Neg-Trace) mg/dL Urine Glucose (UA) (Normal) mg/dL Urine Ketones (Negative) mg/dL Urine Blood (Negative) Urine Nitrite (Negative) Urine Bilirubin (Negative) Urine Urobilinogen (Normal) mg/dL Ur Leukocyte Esterase (Negative) Urine Microscopic RBC (0-3) per hpf Urine Microscopic WBC (0-3) per hpf Ur Squamous Epith Cells (None-Few) per lpf Urine Bacteria (None-Few) per hpf Hyaline Casts (None-Few) per lpf Ur Culture Indicated? (NO) 11/10/18 11/11/18 11/11/18 Range/Units 18:33 06:17 09:45 WBC (4.3-11.1) K/mcL RBC (3.82-4.97) M/mcL Hgb (11.5-15.4) g/dL Hct (35.3-44.9) % MCV (83.0-100.0) fL MCH (28.0-33.3) pg MCHC (31.6-35.5) g/dL RDW (11.5-14.5) % Plt Count (140-400) K/mcL MPV (9.4-12.4) fL Immature Gran % (0-4) % Seg Neutrophils % % Lymphocytes % % Monocytes % % Eosinophils % % Basophils % % Neutrophils # (1.6-8.9) K/mcL Lymphocytes # (0.6-4.6) K/mcL Monocytes # (0.0-1.3) K/mcL Eosinophils # (0.0-0.6) K/mcL Basophils # (0.0-0.2) K/mcL PT (9.4-12.1) Seconds INR Sodium 119 L* 117 L* (136-145) mEq/L Potassium 4.7 (3.5-5.1) mEq/L Chloride 86 L (98-107) mEq/L Carbon Dioxide 26 (23-29) mEq/L BUN 14 (8-23) mg/dL Creatinine 0.63 (0.60-1.20) mg/dL Est GFR ( Amer) > 60 (> 60) Est GFR (Non-Af Amer) > 60 (> 60) BUN/Creatinine Ratio 22 (6-26) Glucose 113 H (70-105) mg/dL Calculated Osmolality 249 L (280-300) Lactic Acid (0.5-2.2) mmol/L Calcium 9.1 (8.6-10.3) mg/dL Troponin I (< 0.04) ng/mL B-Natriuretic Peptide (Less than 100) pg/mL Procalcitonin (0.00-0.15) ng/mL Urine Color Yellow (Yellow) Urine Clarity Clear (Clear) Urine pH 7.0 (5.0-8.0) pH Units Ur Specific [place] 1.017 (1.010-1.025) Urine Protein 30 H (Neg-Trace) mg/dL Urine Glucose (UA) Normal (Normal) mg/dL Urine Ketones 15 H (Negative) mg/dL Urine Blood Small H (Negative) Urine Nitrite Negative (Negative) Urine Bilirubin Negative (Negative) Urine Urobilinogen Normal (Normal) mg/dL Ur Leukocyte Esterase Negative (Negative) Urine Microscopic RBC 15-30 H (0-3) per hpf Urine Microscopic WBC 0-3 (0-3) per hpf Ur Squamous Epith Cells Many H (None-Few) per lpf Urine Bacteria None Seen (None-Few) per hpf Hyaline Casts None Seen (None-Few) per lpf Ur Culture Indicated? NO (NO) - Radiology Data Radiology results reviewed: Yes I reviewed the patient's radiology results. - EKG Data EKG attestation: Yes I reviewed and interpreted this EKG.
[2018-11-10 09:09] LABS: BUN/Creatinine Ratio 17 (6-26); Blood Urea Nitrogen 9 mg/dL (8-23); Calcium 9.2 mg/dL (8.6-10.3); Carbon Dioxide 27 mEq/L (23-29); Chloride 88 mEq/L (98-107); Glucose 112 mg/dL (70-105); Osmolality,Calculated 259 (280-300); Potassium 4.3 mEq/L (3.5-5.1); Sodium 125 mEq/L (136-145); Troponin I < 0.03 ng/mL (< 0.04); eGFR For African Americans > 60 (> 60); eGFR For Non-African Americans > 60 (> 60)
[2018-11-10] MEDS ORDERED: Aspirin 81 MG TAB.CHEW PO ONE (11:16)
[2018-11-10] MEDS ORDERED: *HR* LORazepam 2 MG/ML VIAL IVP ONE (11:52)
[2018-11-10] MEDS ORDERED: Naloxone 0.4 MG/ML INJ IVP PRN (11:53)
--- NOTE | 2018-11-10 11:53 | Internal Med History&Physical ---
Date of Encounter: 11/10/18 Time of Encounter: 12:03 Internal Medicine - H&P: HPI History of present illness: Ms. Blackburn is a 73 year old female with history of COPD on 2L O2 at home, CAD, tracheomalacia presented to ED due to RLE weakness and SOB. Patient woke up with symptoms yesterday, about 24 hours ago. She said shortness of breath is worse than her baseline. She denies fevers but has chills. Denies vomiting, palpitations, chest pain, diaphoresis. Past Med Surg Social Fam HX - Past Medical History Medical history: asthma, cancer, cardiomyopathy, CHF, COPD, coronary artery disease, GERD, hyperlipidemia, hypertension, myocardial infarction, osteoporosis, pulmonary embolus, thyroid disease, other Additional medical history: trachea dysplasia. vocal cord dysfunction. graves dx. esophagitis Psychiatric history: anxiety, depression - Past Surgical History Surgical History: angioplasty/stent, cancer surgery, cataract, cholecystectomy, sinus surgery Additional surgical history: hemrroidectomy. cardiac stent x1 - Social History Smoking Status: Former smoker Smokeless Tobacco Status: No Alcohol use: none Drug use: none - Family History Son Living Status: Still Living Hx Family GI Disorders: Yes Hx Family Endocrine Disorder: Yes (Type 2 DM) Hx Family Neurologic Disorders: Yes (depression) Mother Living Status: Hx Family Cancer: Yes Sister Living Status: Hx Family Cardiac Disorders: Yes (Cerebrovascular accident) Hx Family Respiratory Disorders: No Hx Family Cancer: No Hx Family GI Disorders: No Hx Family Endocrine Disorder: No Hx Family Neuromuscular Disorders: No Hx Family Neurologic Disorders: No Hx Family HEENT Disorders: No Hx Family Autoimmune Disorders: No Daughter Living Status: Still Living Hx Family Cardiac Disorders: Yes ([place], [place]) Hx Family Respiratory Disorders: Yes (Chronic bronchitis) Hx Family Cancer: No Hx Family GI Disorders: No Hx Family Endocrine Disorder: No Hx Family Neuromuscular Disorders: No Hx Family Neurologic Disorders: No Hx Family HEENT Disorders: No Hx Family Autoimmune Disorders: No Brother Family Member Ethnicity: Non- Living Status: Still Living Hx Family Cardiac Disorders: Yes (Coronary artery disease) Hx Family Respiratory Disorders: No Hx Family Cancer: No Hx Family GI Disorders: No Hx Family Endocrine Disorder: Yes (TYPE 2 DIABETES MELLITUS) Hx Family Neuromuscular Disorders: No Hx Family Neurologic Disorders: No Hx Family HEENT Disorders: No Hx Family Autoimmune Disorders: No Father Living Status: Hx Family Cardiac Disorders: Yes ([place]) Hx Family Respiratory Disorders: No Hx Family Cancer: Yes Hx Family GI Disorders: No Hx Family Endocrine Disorder: No Hx Family Neuromuscular Disorders: No Hx Family Neurologic Disorders: No Hx Family HEENT Disorders: No Hx Family Autoimmune Disorders: No Internal Medicine - H&P: Meds Nitroglycerin [Nitrostat] 0.4 mg SL Q5M PRN 11/22/15 [History] Acetaminophen [Tylenol] 1,000 mg PO Q6HR PRN 12/20/15 [History] Tiotropium [Spiriva] 18 mcg IH 0800 01/04/16 [History] Albuterol Sulfate [Proair Hfa] 2 puff IH Q4H PRN 11/17/16 [History] Aspirin [Lo-Dose Aspirin EC] 81 mg PO DAILY 11/17/16 [History] Simethicone [Gas-X] 80 mg PO 1-3XD PRN 12/26/16 [History] Budesonide/Formoterol 160/4.5 [Symbicort 160/4.5] 2 puff IH BIDR 02/19/17 [History] Bisacodyl [Dulcolax] 10 mg RC DAILY PRN 08/05/17 [History] Docusate [Colace] 100 mg PO BID 08/05/17 [History] Lactulose [Enulose] 15 ml PO DAILY PRN 08/05/17 [History] Multivitamin [One Daily Essential] 1 tab PO DAILY 08/05/17 [History] ALPRAZolam [Xanax 0.25 MG Tablet] 0.25 mg PO DAILY PRN 01/09/18 [History] ALPRAZolam [Xanax 0.25 MG Tablet] 0.5 mg PO HS 01/09/18 [History] Clopidogrel [Plavix] 75 mg PO DAILY 01/09/18 [History] Diclofenac Sodium [Voltaren] 1 appl TP DAILY PRN 01/09/18 [History] GuaiFENesin Liq [Robitussin Liq] 50 - 100 mg PO Q4H PRN 01/09/18 [History] Metoprolol Succinate [Toprol Xl] 25 mg PO BID 01/09/18 [History] Oxymetazoline [Afrin] 1 spray NS Q12HR PRN 01/09/18 [History] methIMAzole [Tapazole] 7.5 mg PO DAILY 01/09/18 [History] Guaifenesin 200 mg PO QID 11/10/18 [History] Oxygen 2.5 l NS AD 11/10/18 [History] Proventil Neb 2.5 mg IN PRN PRN 11/10/18 [History] Vitamin D 1,000 mg PO DAILY 11/10/18 [History] Allergy/AdvReac Type Severity Reaction Status Date / Time acetylcysteine Allergy Severe Anaphylaxis Verified 01/09/18 07:59 ramelteon [From Rozerem] Allergy Difficulty Verified 01/09/18 07:59 Breathing Amoxicillin [From Augmentin] AdvReac Intermediate Nausea Verified 01/09/18 07:59 azithromycin [From Zithromax] AdvReac Intermediate Nausea Verified 01/09/18 07:59 clavulanic acid AdvReac Intermediate Nausea Verified 01/09/18 07:59 [From Augmentin] dexlansoprazole AdvReac Mild Headache Verified 01/09/18 07:59 [From Dexilant] prednisone AdvReac Mild See Verified 01/09/18 07:59 Comments sertraline [From Zoloft] AdvReac Mild Depression Verified 01/09/18 07:59 tetracycline [Tetracycline] AdvReac Mild Nausea Verified 01/09/18 07:59 Varenicline [From Chantix] AdvReac Mild Nightmare Verified 01/09/18 07:59 All Systems PM: A 10-system review of systems was performed and is negative for pertinent findings except as documented above in the HPI. - Constitutional Constitutional: chills, no fever(s), no night sweats - EENT Eyes: no change in vision, no discharge, no pain, no photophobia Ears: no ear discharge, no ear pain, no tinnitus Nose, mouth and throat: no dysphagia, no nasal discharge, no neck pain, no sore throat - Cardiovascular Cardiovascular ROS IM: dyspnea, no chest pain, no diaphoresis, no lighthead edness, no palpitations, no syncope - Respiratory Respiratory: dyspnea, wheezing, no cough, no excessive phlegm production - Gastrointestinal Gastrointestinal: no abdominal pain, no diarrhea, no hematemesis, no hematochezi a, no melena, no nausea, no vomiting - Genitourinary Genitourinary: no change in urinary stream, no dysuria, no flank pain, no hematuria - Musculoskeletal Musculoskeletal ROS IM: no numbness, no tingling - Integumentary Integumentary IM: no rash, no unusual bruising - Neurological Neurological ROS: focal weakness, no confusion, no convulsions, no numbness, no tingling, no tremor(s) - Hematologic/Lymphatic Hematologic/Lymphatic: no easy bruising - Constitutional Vitals: Temp Pulse Resp BP Pulse Ox 98.3 F 101 22 211/108 99 11/10/18 07:30 11/10/18 11:20 11/10/18 11:20 11/10/18 11:20 11/10/18 11:20 General appearance: Present: mild distress, A&O X 3 Exam: Mild resp distress - Head Head exam: Present: atraumatic, normocephalic - Eye Eye exam: Present: PERRL, conjuntiva pink, sclera anicteric Pupils: Present: PERRL - Neck Neck exam general surgery: Present: supple, trachea midline. Absent: lymphadenopathy - Respiratory Respiratory exam: Present: decreased breath sounds, rhonchi, wheezes. Absent: accessory muscle use - Cardiovascular Cardiovascular exam: Present: +S1, +S2, tachycardia. Absent: diastolic murmur, gallop, rubs, systolic murmur - GI/Abdominal GI/Abdominal exam: Present: normal bowel sounds, soft, no peritoneal signs. Absent: distended, tenderness - Extremities Exam Extremities exam: Present: warm, radial pulses palpable and symmetrical. Absent: calf tenderness, cyanotic, pedal edema - Neurological Exam Neurological exam: Present: CN II-XII intact, oriented X3, no focal deficits. Absent: pronater drift, facial droop, speech deficit - Skin Skin exam: Present: dry, intact Internal Med - H&P Results - Labs CBC & Chem 7: 11/10/18 08:26 11/10/18 08:26 Labs: Short CBC 11/10/18 Range/Units 08:26 WBC 8.2 (4.3-11.1) K/mcL Hgb 12.8 (11.5-15.4) g/dL Hct 37.8 (35.3-44.9) % Plt Count 421 H (140-400) K/mcL Neutrophils # 6.4 (1.6-8.9) K/mcL BMP 11/10/18 08:26 Sodium 125 L Potassium 4.3 Chloride 88 L Carbon Dioxide 27 BUN 9 Creatinine 0.54 L Glucose 112 H Calcium 9.2 Cardiac Enzymes 11/10/18 Range/Units 08:26 Troponin I < 0.03 (< 0.04) ng/mL - Impressions ITS Impressions Chest X-Ray 11/10/18 07:39 IMPRESSION: 1. Emphysema. No superimposed radiographic finding to account for patient's shortness of breath. D/ / Yoel Choudhary MD / Yoel Choudhary MD Interpreting Provider: Yoel Choudhary MD Head CT 11/10/18 08:45 IMPRESSION: No acute intracranial abnormality. Fluid within the sphenoid sinuses. Correlation for acute sinusitis is recommended. D/ / Vivian Michel Cha, MD / Vivian Michel Cha, MD Interpreting Provider: Vivian Michel Cha, MD - Assessment and Plan (1) Right leg weakness Current Visit: Yes Status: Acute Assessment and plan: Weakness apparent on bopth RUE and RLE on exam. Patient is high risk for CVA and should be ruled out. CT head negative. Will need MRI brain, neuro consult, carotid u/s., echocardiogram. (2) COPD exacerbation Current Visit: No Status: Acute Assessment and plan: Start Duo Neb scheduled, and Solu Medrol. (3) Chronic hypercapnic respiratory failure Current Visit: No Status: Acute (4) DVT prophylaxis Current Visit: No Status: Acute (5) H/O right coronary artery stent placement Current Visit: No Status: Acute (6) Hyponatremia with decreased serum osmolality Current Visit: No Status: Acute Assessment and plan: Gentle IV fluid hydration and recheck in AM. (7) Physical deconditioning Current Visit: No Status: Acute (8) CAD (coronary artery disease) Current Visit: No Status: Chronic Assessment and plan: Resume home medications. Qualifiers: Coronary Disease-Associated Artery/Lesion type: [place] artery [place] vs. transplanted heart: rosebud heart Associated angina: without angina Qualified Code(s): I25.10 - Atherosclerotic heart disease of rosebud coronary artery without angina pectoris (9) CHF (congestive heart failure) Current Visit: No Status: Chronic Assessment and plan: Not in acute exacerbation. Qualifiers: Heart failure type: diastolic Heart failure chronicity: chronic Qualified Code(s): I50.32 - Chronic diastolic (congestive) heart failure (10) GERD (gastroesophageal reflux disease) Current Visit: No Status: Chronic Qualifiers: Esophagitis presence: without esophagitis Qualified Code(s): K21.9 - Gastro-esophageal reflux disease without esophagitis (11) HTN (hypertension), benign Current Visit: No Status: Chronic Assessment and plan: Currently hypertensive and tachycardic because of missing her morning BP meds. Resume home medications and cautiously lower BP in case this is truly CVA. (12) History of pulmonary embolism Current Visit: No Status: Chronic (13) Hypertension Current Visit: No Status: Chronic Qualifiers: Hypertension type: essential hypertension Qualified Code(s): I10 - Essential (primary) hypertension (14) NUBIA (obstructive sleep apnea) Current Visit: No Status: Chronic (15) Tracheomalacia Current Visit: No Status: Chronic - Time Spent With Patient Total time spent is greater than 50% in coordination of care (as documented) at patient's floor/unit and/or counseling patient:
[2018-11-10] MEDS ORDERED: Nitroglycerin 0.4 MG TAB.SUBL SL PRN ×2 (12:01→12:21)
[2018-11-10] MEDS ORDERED: GuaiFENesin Liq 200 MG/10 ML UDC PO PRN (12:21)
[2018-11-10] MEDS ORDERED: Bisacodyl 10 MG RECTAL SUPPOSITORY RC PRN (12:21)
[2018-11-10] MEDS ORDERED: Lactulose Oral Soln 20 GM/30 ML UDC PO PRN (12:21)
[2018-11-10] MEDS ORDERED: Simethicone 80 MG TAB.CHEW PO PRN (12:21)
[2018-11-10] MEDS ORDERED: OXYGEN NS SCH (12:30)
[2018-11-10] MEDS ORDERED: GUAIFENESIN 200 MG PO SCH (13:00)
[2018-11-10] MEDS ORDERED: *HR* Labetalol 20 MG/4 ML SYRINGE IVP ONE (13:43)
--- NOTE | 2018-11-10 14:15 | Electrocardiograph Report ---
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
[2018-11-10] MEDS: Ipratropium/Albuterol Neb 3 ML IH SCH ×2 (15:34→20:15)
[2018-11-10] MEDS: MethylPREDNISolone 40 MG/ML VIAL IVP SCH (15:47)
[2018-11-10] MEDS: ALPRAZolam 0.25 MG TABLET PO PRN (15:51)
[2018-11-10] MEDS: *HR* Heparin 5,000 UNIT/ML VIAL SQ SCH (16:56)
--- NOTE | 2018-11-10 18:20 | Neurology - Consult Note ---
Date of Encounter: 11/10/18 Time of Encounter: 18:14 Assessment and Plan (1) Left thalamic infarction Current Visit: Yes Status: Acute Patient has experienced an acute infarct in the left thalamus. She does have some slight weakness of the right upper and right lower extremity. However I am encouraged that she could regain a considerable amount of function with ongoing therapy. At this point I believe that her infarct was due to vasospasm involvin g the left lenticulostriate arteries due to extreme hypertension. In this case I am not convinced that this is truly a failure the Plavix. I would continue to maintain the Plavix. I recommend allowing for permissive hypertension over the next 24-48 hours. Recommend treating of the blood pressure rises above 180 systolic. Echocardiogram and carotid Doppler studies are yet pending. I will reevaluate her tomorrow. History of Present Illness HPI: Chart was reviewed, the patient was seen and examined. Ms. Blackburn is a 73 year old female who is seen for neurologic consultation at the request of the hospitalist group secondary to symptoms of right lower extremity weakness upon awakening this morning. Patient states that she had an uneventful night. And awakened this morning experiencing some shortness of breath. And then noticed that the right lower extremity was somewhat weak. She denied headache, denied paresthesias or weakness of the right upper extremity. She feels that her symptoms have improved to some extent since admission. MRI scan of the brain was completed and does reveal an acute left thalamic infarct. She does have stroke risk factors which include hyperlipidemia, hypertension and previous ND. Also upon admission her blood pressure was extremely elevated at 219/135. Past Med Surg Social Fam HX - Past Medical History Medical history: asthma, cancer, cardiomyopathy, CHF, COPD, coronary artery disease, GERD, hyperlipidemia, hypertension, myocardial infarction, osteoporosis, pulmonary embolus, thyroid disease, other Additional medical history: trachea dysplasia. vocal cord dysfunction. graves dx. esophagitis Psychiatric history: anxiety, depression - Past Surgical History Surgical History: angioplasty/stent, cancer surgery, cataract, cholecystectomy, sinus surgery Additional surgical history: hemrroidectomy. cardiac stent x1 - Social History Smoking Status: Former smoker Smokeless Tobacco Status: No Alcohol use: none Drug use: none - Family History Son Living Status: Still Living Hx Family GI Disorders: Yes Hx Family Endocrine Disorder: Yes (Type 2 DM) Hx Family Neurologic Disorders: Yes (depression) Mother Living Status: Hx Family Cancer: Yes Sister Living Status: Hx Family Cardiac Disorders: Yes (Cerebrovascular accident) Hx Family Respiratory Disorders: No Hx Family Cancer: No Hx Family GI Disorders: No Hx Family Endocrine Disorder: No Hx Family Neuromuscular Disorders: No Hx Family Neurologic Disorders: No Hx Family HEENT Disorders: No Hx Family Autoimmune Disorders: No Daughter Living Status: Still Living Hx Family Cardiac Disorders: Yes ([place], [place]) Hx Family Respiratory Disorders: Yes (Chronic bronchitis) Hx Family Cancer: No Hx Family GI Disorders: No Hx Family Endocrine Disorder: No Hx Family Neuromuscular Disorders: No Hx Family Neurologic Disorders: No Hx Family HEENT Disorders: No Hx Family Autoimmune Disorders: No Brother Family Member Ethnicity: Non- Living Status: Still Living Hx Family Cardiac Disorders: Yes (Coronary artery disease) Hx Family Respiratory Disorders: No Hx Family Cancer: No Hx Family GI Disorders: No Hx Family Endocrine Disorder: Yes (TYPE 2 DIABETES MELLITUS) Hx Family Neuromuscular Disorders: No Hx Family Neurologic Disorders: No Hx Family HEENT Disorders: No Hx Family Autoimmune Disorders: No Father Living Status: Hx Family Cardiac Disorders: Yes ([place]) Hx Family Respiratory Disorders: No Hx Family Cancer: Yes Hx Family GI Disorders: No Hx Family Endocrine Disorder: No Hx Family Neuromuscular Disorders: No Hx Family Neurologic Disorders: No Hx Family HEENT Disorders: No Hx Family Autoimmune Disorders: No Medications and Allergies Nitroglycerin [Nitrostat] 0.4 mg SL Q5M PRN 11/22/15 [History] Acetaminophen [Tylenol] 1,000 mg PO Q6HR PRN 12/20/15 [History] Tiotropium [Spiriva] 18 mcg IH 0800 01/04/16 [History] Albuterol Sulfate [Proair Hfa] 2 puff IH Q4H PRN 11/17/16 [History] Aspirin [Lo-Dose Aspirin EC] 81 mg PO DAILY 11/17/16 [History] Simethicone [Gas-X] 80 mg PO 1-3XD PRN 12/26/16 [History] Budesonide/Formoterol 160/4.5 [Symbicort 160/4.5] 2 puff IH BIDR 02/19/17 [History] Bisacodyl [Dulcolax] 10 mg RC DAILY PRN 08/05/17 [History] Docusate [Colace] 200 mg PO TID 08/05/17 [History] Lactulose [Enulose] 15 ml PO DAILY PRN 08/05/17 [History] Multivitamin [One Daily Essential] 1 tab PO DAILY 08/05/17 [History] ALPRAZolam [Xanax 0.25 MG Tablet] 0.25 mg PO DAILY PRN 01/09/18 [History] ALPRAZolam [Xanax 0.25 MG Tablet] 0.5 mg PO HS 01/09/18 [History] Clopidogrel [Plavix] 75 mg PO DAILY 01/09/18 [History] Diclofenac Sodium [Voltaren] 1 appl TP DAILY PRN 01/09/18 [History] GuaiFENesin Liq [Robitussin Liq] 50 - 100 mg PO Q4H PRN 01/09/18 [History] Metoprolol Succinate [Toprol Xl] 25 mg PO BID 01/09/18 [History] Oxymetazoline [Afrin] 1 spray NS Q12HR PRN 01/09/18 [History] methIMAzole [Tapazole] 7.5 mg PO DAILY 01/09/18 [History] Guaifenesin 200 mg PO QID 11/10/18 [History] Oxygen 2.5 l NS AD 11/10/18 [History] Proventil Neb 2.5 mg IN PRN PRN 11/10/18 [History] Vitamin D 1,000 mg PO DAILY 11/10/18 [History] Allergy/AdvReac Type Severity Reaction Status Date / Time acetylcysteine Allergy Severe Anaphylaxis Verified 01/09/18 07:59 ramelteon [From Rozerem] Allergy Difficulty Verified 01/09/18 07:59 Breathing Amoxicillin [From Augmentin] AdvReac Intermediate Nausea Verified 01/09/18 07:59 azithromycin [From Zithromax] AdvReac Intermediate Nausea Verified 01/09/18 07:59 clavulanic acid AdvReac Intermediate Nausea Verified 01/09/18 07:59 [From Augmentin] dexlansoprazole AdvReac Mild Headache Verified 01/09/18 07:59 [From Dexilant] prednisone AdvReac Mild See Verified 01/09/18 07:59 Comments sertraline [From Zoloft] AdvReac Mild Depression Verified 01/09/18 07:59 tetracycline [Tetracycline] AdvReac Mild Nausea Verified 01/09/18 07:59 Varenicline [From Chantix] AdvReac Mild Nightmare Verified 01/09/18 07:59 All Systems: The remainder of the systems were reviewed and are negative Review of Systems: The balance of the systems review is negative. Physical Examination - Vital Signs Vital Signs: Initial Vital Signs Temp Pulse Resp BP Pulse Ox 98.3 F 93 26 183/146 99 11/10/18 07:30 11/10/18 07:30 11/10/18 07:30 11/10/18 07:30 11/10/18 07:30 - Exam Exam: General Examination: *CONSTITUTIONAL: normal *GENERAL APPEARANCE OF PATIENT appears healthy and well groomed *EYES: pupils equal, round, reactive to light and accommodation, conjunctiva clear without masses or ulcerations, fundi normal. *CARDIOVASCULAR no peripheral edema, distal temperature normal, dorsalis pedis pulses normal. Refer to vital signs Musculoskeletal: *GAIT AND STATION normal, with normal Romberg testing, no abnormalities such as broad base gait or spasticity *ASSESSMENT OF MUSCLE STRENGTH IN THE left upper extremity and left lower extremity was 5/5 of all muscles. The right deltoid biceps and triceps strength are all 3/5. The right mri technician strength is 4/5. The right hip flexors, q uadriceps, knee flexors and tibialis anterior muscles were all 4/5. *MUSCLE TONE IN THE UPPER AND LOWER EXTREMITIES normal. No abnormal movements, fasciculations or atrophy identified. Neurological: *ORIENTATION to time and place *RECURRENT AND REMOTE MEMORY intact *ATTENTION AND CONCENTRATION are normal *LANGUAGE FUNCTION no significant aphasia or dysarthia was noted. *FUND OF KNOWLEDGE aware of current events, past history, vocabulary *MENTAL attention span and concentration normal. *CN II optic fundi were normal, no papilledema noted. *CN III,IV, PERRLA extraocular eye movements were full, no nystagmus and no ptosis noted. *CN V shows normal sensation and jaw opens symmetrically. *CN VII shows a slight right facial droop along with a tad bit of dysarthric speech. *CN VIII shows no significant hearing loss on examination in the office. *CN IX,,X palate elevated symmetrically and normal gag reflex was noted. *CN XI normal strength in the sternocleidomastoid muscles, symmetrical shoulder shrugging. *CN XII tongue protruded in the midline, with normal strength and movement. *SENSORY EXAMINATION pinprick sensation intact, and light touch(vibration sense). *REFLEXES: deep tendon reflexes were normal and symmetrical , grade 2/4 diffusely, no pathological reflexes were noted. *CEREBELLAR TESTING normal finger to nose, heel/knee/hylton, and tandem walk. *PAIN LEVEL Results - Laboratory Findings CBC and BMP: 11/10/18 08:26 11/10/18 08:26 Abnormal lab findings: Abnormal lab results Plt Count 421 K/mcL (140-400) H 11/10/18 08:26 MPV 7.7 fL (9.4-12.4) L 11/10/18 08:26 Sodium 125 mEq/L (136-145) L 11/10/18 08:26 Chloride 88 mEq/L (98-107) L 11/10/18 08:26 Creatinine 0.54 mg/dL (0.60-1.20) L 11/10/18 08:26 Glucose 112 mg/dL (70-105) H 11/10/18 08:26 Calculated Osmolality 259 (280-300) L 11/10/18 08:26 B-Natriuretic Peptide 254 pg/mL (Less than 100) H 11/10/18 08:26 Consult Discharge Plan - Plan Referrals: Paula Casiano CNP [Primary Care Provider] -
[2018-11-10 18:43] LABS: Bilirubin,Urine Negative (Negative); Blood,Urine Small (Negative); Clarity,Urine Clear (Clear); Color,Urine Yellow (Yellow); Glucose,Urine (UA) Normal (Normal); Ketones,Urine 15 mg/dL (Negative); Leukocyte Esterase,Urine Negative (Negative); Nitrite,Urine Negative (Negative); Protein,Urine 30 mg/dL (Neg-Trace); Specific Gravity,Urine 1.017 (1.010-1.025); Urobilinogen,Urine Normal (Normal)
[2018-11-10 18:44] LABS: Bacteria,Urine None Seen per hpf (None-Few); Hyaline Casts,Urine None Seen per lpf (None-Few); RBC,Urine 15-30 per hpf (0-3); Squamous Epithelial Cell,Urine Many per lpf (None-Few); WBC,Urine 0-3 per hpf (0-3)
[2018-11-10] MEDS: Budesonide/Formoterol 160/4.5 1 PUFF INH IH SCH (20:15)
[2018-11-10] MEDS: Metoprolol XL (24 HR) Succ 25 MG TAB.ER.24H PO SCH (20:28)
[2018-11-10] MEDS: ALPRAZolam 0.25 MG TABLET PO SCH (22:38)
[2018-11-11] MEDS: MethylPREDNISolone 40 MG/ML VIAL IVP SCH ×2 (00:19→07:22)
[2018-11-11] MEDS: Ipratropium/Albuterol Neb 3 ML IH SCH ×6 (00:49→20:32)
[2018-11-11] MEDS: *HR* Heparin 5,000 UNIT/ML VIAL SQ SCH ×2 (05:32→20:10)
[2018-11-11] MEDS: ALPRAZolam 0.25 MG TABLET PO PRN (06:59)
[2018-11-11 07:17] LABS: BUN/Creatinine Ratio 22 (6-26); Blood Urea Nitrogen 14 mg/dL (8-23); Calcium 9.1 mg/dL (8.6-10.3); Carbon Dioxide 26 mEq/L (23-29); Chloride 86 mEq/L (98-107); Glucose 113 mg/dL (70-105); Osmolality,Calculated 249 (280-300); Potassium 4.7 mEq/L (3.5-5.1); Sodium 119 mEq/L (136-145); eGFR For African Americans > 60 (> 60); eGFR For Non-African Americans > 60 (> 60)
[2018-11-11] MEDS: methIMAzole 5 MG TABLET PO SCH (07:22)
[2018-11-11] MEDS: Metoprolol XL (24 HR) Succ 25 MG TAB.ER.24H PO SCH ×2 (07:22→20:12)
[2018-11-11] MEDS: Aspirin Enteric Coated 81 MG Tablet PO SCH (07:22)
[2018-11-11] MEDS: Budesonide/Formoterol 160/4.5 1 PUFF INH IH SCH ×2 (07:43→20:32)
[2018-11-11] MEDS ORDERED: Tiotropium 18 MCG inhalation IH SCH (10:00)
[2018-11-11] MEDS: 0.9 % Sodium Chloride 1,000 ML IVC SCH ×2 (10:26→18:27)
--- NOTE | 2018-11-11 10:34 | Nephrology Consult Note ---
Date of Encounter: 11/11/18 Time of Encounter: 10:05 Assessment and Plan (1) Hyponatremia Current Visit: No Status: Chronic She reported significant polydipsia of water. I recommend starting a fluid restriction, checking urine studies, and a slow/safe correction of the hyponatremia of approximately 6-8 mEq per 24 hours. Further recommendations to follow. Thank you for consulting [facility], and I will follow with you. History of Present Illness - Reason for Consult Consult date: 11/11/18 hyponatremia Requesting physician: Ubaldo Mixon - Chief Complaint Acute on chronic hyponatremia - History of Present Illness The patient is a very pleasant 73-year-old female who presented with cerebrovascular accident. She developed a stroke and neurology was consulted. She was also found to have acute on chronic hyponatremia and nephrology was consulted. She reported that she does not take teqy-czi-pojirue NSAIDs. She did not affirm nausea vomiting or diarrhea. She denied excessive alcohol consumption. She said that she consumes mostly water, and "lots" of it. She did not affirm having previous seizures. 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 Past Med Surg Social Fam HX - Past Medical History Medical history: asthma, cancer, cardiomyopathy, CHF, COPD, coronary artery disease, GERD, hyperlipidemia, hypertension, myocardial infarction, osteoporosis, pulmonary embolus, thyroid disease, other Additional medical history: trachea dysplasia. vocal cord dysfunction. graves dx. esophagitis Psychiatric history: anxiety, depression - Past Surgical History Surgical History: angioplasty/stent, cancer surgery, cataract, cholecystectomy, sinus surgery Additional surgical history: hemrroidectomy. cardiac stent x1 - Social History Smoking Status: Former smoker Smokeless Tobacco Status: No Alcohol use: none Drug use: none - Family History Son Living Status: Still Living Hx Family GI Disorders: Yes Hx Family Endocrine Disorder: Yes (Type 2 DM) Hx Family Neurologic Disorders: Yes (depression) Mother Living Status: Hx Family Cancer: Yes Sister Living Status: Hx Family Cardiac Disorders: Yes (Cerebrovascular accident) Hx Family Respiratory Disorders: No Hx Family Cancer: No Hx Family GI Disorders: No Hx Family Endocrine Disorder: No Hx Family Neuromuscular Disorders: No Hx Family Neurologic Disorders: No Hx Family HEENT Disorders: No Hx Family Autoimmune Disorders: No Daughter Living Status: Still Living Hx Family Cardiac Disorders: Yes ([place], [place]) Hx Family Respiratory Disorders: Yes (Chronic bronchitis) Hx Family Cancer: No Hx Family GI Disorders: No Hx Family Endocrine Disorder: No Hx Family Neuromuscular Disorders: No Hx Family Neurologic Disorders: No Hx Family HEENT Disorders: No Hx Family Autoimmune Disorders: No Brother Family Member Ethnicity: Non- Living Status: Still Living Hx Family Cardiac Disorders: Yes (Coronary artery disease) Hx Family Respiratory Disorders: No Hx Family Cancer: No Hx Family GI Disorders: No Hx Family Endocrine Disorder: Yes (TYPE 2 DIABETES MELLITUS) Hx Family Neuromuscular Disorders: No Hx Family Neurologic Disorders: No Hx Family HEENT Disorders: No Hx Family Autoimmune Disorders: No Father Living Status: Hx Family Cardiac Disorders: Yes ([place]) Hx Family Respiratory Disorders: No Hx Family Cancer: Yes Hx Family GI Disorders: No Hx Family Endocrine Disorder: No Hx Family Neuromuscular Disorders: No Hx Family Neurologic Disorders: No Hx Family HEENT Disorders: No Hx Family Autoimmune Disorders: No Medications and Allergies Nitroglycerin [Nitrostat] 0.4 mg SL Q5M PRN 11/22/15 [History] Acetaminophen [Tylenol] 1,000 mg PO Q6HR PRN 12/20/15 [History] Tiotropium [Spiriva] 18 mcg IH 0800 01/04/16 [History] Albuterol Sulfate [Proair Hfa] 2 puff IH Q4H PRN 11/17/16 [History] Aspirin [Lo-Dose Aspirin EC] 81 mg PO DAILY 11/17/16 [History] Simethicone [Gas-X] 80 mg PO 1-3XD PRN 12/26/16 [History] Budesonide/Formoterol 160/4.5 [Symbicort 160/4.5] 2 puff IH BIDR 02/19/17 [History] Bisacodyl [Dulcolax] 10 mg RC DAILY PRN 08/05/17 [History] Docusate [Colace] 200 mg PO TID 08/05/17 [History] Multivitamin [One Daily Essential] 1 tab PO DAILY 08/05/17 [History] ALPRAZolam [Xanax 0.25 MG Tablet] 0.25 mg PO DAILY PRN 01/09/18 [History] Clopidogrel [Plavix] 75 mg PO DAILY 01/09/18 [History] Diclofenac Sodium [Voltaren] 1 appl TP DAILY PRN 01/09/18 [History] GuaiFENesin Liq [Robitussin Liq] 200 mg PO Q4H PRN 01/09/18 [History] Metoprolol Succinate [Toprol Xl] 25 mg PO BID 01/09/18 [History] Oxymetazoline [Afrin] 1 spray NS Q12HR PRN 01/09/18 [History] methIMAzole [Tapazole] 7.5 mg PO DAILY 01/09/18 [History] ALPRAZolam [Xanax 0.5 MG Tablet] 0.5 mg PO HS 11/10/18 [History] Cetirizine HCl [Allergy Relief] 10 mg PO DAILY 11/10/18 [History] Fluticasone Propionate Nasal [Flonase] 2 spray NS BID 11/10/18 [History] Guaifenesin [Mucinex] 600 mg PO Q12H 11/10/18 [History] Isosorbide MONOnitrate [Isosorbide Mononitrate ER] 30 mg PO QAM 11/10/18 [History] Lactulose 10 gm PO BID 11/10/18 [History] Levocetirizine Dihydrochloride [Allergy Relief (Xyzal)] 5 mg PO DAILY 11/10/18 [History] Lisinopril 2.5 mg PO DAILY 11/10/18 [History] Loratadine [Claritin] 5 mg PO BID 11/10/18 [History] Oxygen 2.5 l NS AD 11/10/18 [History] Polyvinyl Alcohol [Artificial Tears] 1 drop BOTH EYES QID PRN 11/10/18 [History] Rabeprazole Sodium [Aciphex] 20 mg PO DAILY 11/10/18 [History] Selenium 200 mcg PO DAILY 11/10/18 [History] Allergy/AdvReac Type Severity Reaction Status Date / Time acetylcysteine Allergy Severe Anaphylaxis Verified 11/10/18 21:02 albuterol [From DuoNeb] Allergy See Verified 11/10/18 21:02 Comments amlodipine [From Norvasc] Allergy See Verified 11/10/18 21:02 Comments carvedilol [From Coreg] Allergy See Verified 11/10/18 21:02 Comments cefdinir Allergy See Verified 11/10/18 21:02 Comments diltiazem [From Cardizem] Allergy See Verified 11/10/18 21:02 Comments ipratropium [From Atrovent] Allergy See Verified 11/10/18 21:02 Comments levofloxacin [From Levaquin] Allergy See Verified 11/10/18 21:02 Comments metoclopramide [From Reglan] Allergy See Verified 11/10/18 21:02 Comments metoprolol Allergy See Verified 11/10/18 21:02 Comments ramelteon [From Rozerem] Allergy Difficulty Verified 11/10/18 21:02 Breathing roflumilast [From Daliresp] Allergy See Verified 11/10/18 21:02 Comments Amoxicillin [From Augmentin] AdvReac Intermediate Nausea Verified 11/10/18 21:02 azithromycin [From Zithromax] AdvReac Intermediate Nausea Verified 11/10/18 21:02 clavulanic acid AdvReac Intermediate Nausea Verified 11/10/18 21:02 [From Augmentin] dexlansoprazole AdvReac Mild Headache Verified 11/10/18 21:02 [From Dexilant] prednisone AdvReac Mild See Verified 11/10/18 21:02 Comments sertraline [From Zoloft] AdvReac Mild Depression Verified 11/10/18 21:02 tetracycline [Tetracycline] AdvReac Mild Nausea Verified 11/10/18 21:02 Varenicline [From Chantix] AdvReac Mild Nightmare Verified 11/10/18 21:02 Review of Systems All Systems: reviewed and no additional remarkable complaints except as stated Exam - Vital Signs Vital signs: Initial Vital Signs Temp Pulse Resp BP Pulse Ox 98.3 F 93 26 183/146 99 11/10/18 07:30 11/10/18 07:30 11/10/18 07:30 11/10/18 07:30 11/10/18 07:30 Vital Signs - Last 8 Hours Temp Pulse Resp BP Pulse Ox 11/11/18 10:26 97.5 F L 90 16 146/87 97 11/11/18 07:48 18 99 11/11/18 06:30 98.2 F 98 16 147/88 98 11/11/18 02:47 98.4 F 89 16 105/62 98 Intake and Output 11/10/18 11/11/18 11/11/18 23:59 07:59 15:59 Output Total 150 / 150 225 / 225 Balance -150 / -150 -225 / -225 Output: Urine 150 / 150 225 / 225 Other: Weight 56.5 kg Patient Weight 11/11/18 23:59 Weight 56.5 kg - General Appearance General appearance: cachectic, fatigue, frail EENT: ATNC, mucous membranes dry Neck: no JVD, supple Respiratory: no kyphosis, clear Cardiology: no edema, normal S1, normal S2 Gastrointestinal: normoactive bowel sounds, no guarding Neurologic: alert and oriented x3 Additional Comments: generalized right sided weakness Musculoskeletal: no cyanosis, no clubbing Psychiatric: cooperative Results - Lab Results 11/10/18 08:26 11/11/18 15:44 Most recent lab results 11/11/18 06:17 Calcium 9.1 Consult Discharge Plan - Plan Referrals: Dmitri Pena MD [Partnered Physician] - 12/15/18 10:00 am Paula Casiano CNP [Primary Care Provider] - 11/18/18 1:30 pm () Willem Reid MD [Partnered Physician] - 12/08/18 10:00 am Davi Moscoso MD [Partnered Physician] - 11/24/18 11:00 am
--- NOTE | 2018-11-11 12:28 | Neurology Progress Note ---
<Tay Elliott J - Last Filed: 11/11/18 12:33> Date of Encounter: 11/11/18 Time of Encounter: 12:19 Assessment and Plan (1) Hyponatremia Current Visit: No Status: Chronic has chronically but worse today with serum NA of 117 etiology unclear but reports significcant polysipsia nephro seeing in c/s; rec appreciated agree with fluid restriction and slow correction of Na per hyponatermia protocol; no more than 608 meq per 24 hours Not contributing to her right arm and leg weakness (2) Left thalamic infarction Current Visit: Yes Status: Acute Seen today in follow-up for an acute infarct in the left thalamus Presented with symptoms of right upper and lower extremity weakness Symptoms persisted today but are no worse No new neurological deficits identified on today's exam Infarct likely result of hypertensive emergency resulting vasospasms BP has improved; okay to continue with permissive HTN for the next 24 hours then began normalizing Continue with aspirin and Plavix therapy; patient refusing statin medications Echocardiogram was not completed due to patient intolerance Carotid duplex studies revealed nonstenotic plaque bilaterally No further recommendations from neurology Subjective Principal diagnosis: Acute CVA Interval history: The chart was reviewed and the patient was seen and examined at the bedside today. In brief, this is a 73-year-old female who was seen for an acute CVA in the left thalamus. She presented with symptoms of right upper and lower extremity weakness which is ongoing today. She reports that her symptoms are no worse overnight but about the same. She denies any new neurological deficits or concerns. Objective - Constitutional Vitals: Temp Pulse Resp BP Pulse Ox 97.4 F L 91 18 138/85 94 11/11/18 10:26 11/11/18 10:26 11/11/18 12:02 11/11/18 10:26 11/11/18 12:02 Exam: Examination: General Examination: *CONSTITUTIONAL: Alert and oriented x3, and mildly anxious *GENERAL APPEARANCE OF PATIENT generally ill appearing elderly female *EYES: pupils equal, round, reactive to light and accommodation, conjunctiva clear without masses or ulcerations, fundi normal. *CARDIOVASCULAR: no peripheral edema, distal temperature normal, dorsalis pedis pulses normal. Refer to vital signs * MUSCULOSKELETAL: *GAIT AND STATION: deferred d/t rt leg weakness; risk for falls *ASSESSMENT OF MUSCLE STRENGTH IN THE UPPER AND LOWER EXTREMITIES right deltoid, bicep, tricep, payroll representative strength 3/5, right hip flexors ,anterior tibialis, dorsoflexion of the foot 3/5. Left deltoid, bicep, tricep, payroll representative strength 4/5, left hip flexor, anterior tibialis, dorsiflexion of the foot 4/5 *MUSCLE TONE IN THE UPPER AND LOWER EXTREMITIES normal. No abnormal movements, fasciculations or atrophy identified. Neurological: *ORIENTATION to person, situation, time and place *LANGUAGE AND FUNCTION no significant aphasia or dysarthia was noted. *ATTENTION AND CONCENTRATION are normal *LANGUAGE FUNCTION no significant aphasia or dysarthia was noted. *FUND OF KNOWLEDGE aware of current events, past history, vocabulary *MENTAL attention span and concentration normal. *CN II optic fundi were normal, no papilledema noted. *CN III,IV, PERRLA extraocular eye movements were full, no nystagmus and no ptosis noted. *CN V shows normal sensation and jaw opens symmetrically. *CN VII shows normal facial movement symmetrically, upper and lower yuan aterally. *CN VIII shows no significant hearing loss on exam *CN IX-Xpalate elevated symmetrically *CN XI normal strength in the sternocleidomastoid muscles, symmetrical shoulder shrugging. *CN XII tongue protruded in the midline, with normal strength and movement. *SENSORY EXAMINATION is deep and light touch intact *REFLEXES: deep tendon reflexes were normal and symmetrical , grade 2/4 diffusely, no pathological reflexes were noted. *CEREBELLAR TESTING normal finger to nose *PAIN LEVEL 0/10 Results - Laboratory Findings CBC and BMP: 11/10/18 08:26 11/11/18 09:45 Abnormal lab findings: Abnormal lab results Plt Count 421 K/mcL (140-400) H 11/10/18 08:26 MPV 7.7 fL (9.4-12.4) L 11/10/18 08:26 Sodium 117 mEq/L (136-145) L* 11/11/18 09:45 Chloride 86 mEq/L (98-107) L 11/11/18 06:17 Creatinine 0.54 mg/dL (0.60-1.20) L 11/10/18 08:26 Glucose 113 mg/dL (70-105) H 11/11/18 06:17 Serum Osmolality 267 mOsm/kg (280-300) L 11/11/18 09:45 Calculated Osmolality 249 (280-300) L 11/11/18 06:17 B-Natriuretic Peptide 254 pg/mL (Less than 100) H 11/10/18 08:26 Urine Protein 30 mg/dL (Neg-Trace) H 11/10/18 18:33 Urine Ketones 15 mg/dL (Negative) H 11/10/18 18:33 Urine Blood Small (Negative) H 11/10/18 18:33 Urine Microscopic RBC 15-30 per hpf (0-3) H 11/10/18 18:33 Ur Squamous Epith Cells Many per lpf (None-Few) H 11/10/18 18:33 Consult Discharge Plan - Plan Referrals: Dmitri Pena MD [Partnered Physician] - 12/15/18 10:00 am Paula Casiano CNP [Primary Care Provider] - 11/18/18 1:30 pm () Willem Reid MD [Partnered Physician] - 12/08/18 10:00 am Davi Moscoso MD [Partnered Physician] - 11/24/18 11:00 am <Lux Guzman - Last Filed: 11/11/18 15:13> Date of Encounter: 11/11/18 Assessment and Plan (1) Hyponatremia Current Visit: No Status: Chronic (2) Left thalamic infarction Current Visit: Yes Status: Acute I have personally performed a [id number] assessment of the patient and have reviewed the PA/PARACHUTE PANEL JOINER note. My impressions are as follows: Case was discussed with the TRANSCRIPTION TYPIST. I agree with his assessment and plan as documented above. We will reevaluate at your request. Subjective Interval history: Chart was reviewed, the patient was seen and examined independently. The case was discussed with the TRANSCRIPTION TYPIST. I agree with his documentation as stated above. Patient still has some right upper extremity weakness and right lower extremity weakness and compared to the left upper and left lower extremities. However it is no worse than it was upon admission. Patient did not tolerate the echocardiogram and was not able to complete the test. Carotid Doppler study however was normal. Objective - Constitutional Vitals: Temp Pulse Resp BP Pulse Ox 97.4 F L 91 18 138/85 94 11/11/18 10:26 11/11/18 10:26 11/11/18 12:02 11/11/18 10:26 11/11/18 12:02 Exam: I have personally performed a [id number] assessment of the patient and have reviewed the PA/PARACHUTE PANEL JOINER note. My impressions are as follows: I agree with the neurologic examination as documented above. Results - Laboratory Findings CBC and BMP: 11/10/18 08:26 11/11/18 09:45 Abnormal lab findings: Abnormal lab results Plt Count 421 K/mcL (140-400) H 11/10/18 08:26 MPV 7.7 fL (9.4-12.4) L 11/10/18 08:26 Sodium 117 mEq/L (136-145) L* 11/11/18 09:45 Chloride 86 mEq/L (98-107) L 11/11/18 06:17 Creatinine 0.54 mg/dL (0.60-1.20) L 11/10/18 08:26 Glucose 113 mg/dL (70-105) H 11/11/18 06:17 Serum Osmolality 267 mOsm/kg (280-300) L 11/11/18 09:45 Calculated Osmolality 249 (280-300) L 11/11/18 06:17 B-Natriuretic Peptide 254 pg/mL (Less than 100) H 11/10/18 08:26 Urine Protein 30 mg/dL (Neg-Trace) H 11/10/18 18:33 Urine Ketones 15 mg/dL (Negative) H 11/10/18 18:33 Urine Blood Small (Negative) H 11/10/18 18:33 Urine Microscopic RBC 15-30 per hpf (0-3) H 11/10/18 18:33 Ur Squamous Epith Cells Many per lpf (None-Few) H 11/10/18 18:33
--- NOTE | 2018-11-11 13:34 | Internal Med Progress Note ---
Hospitalist Progress Note - Encounter Date of Encounter: 11/11/18 Time of Encounter: 09:00 - Subjective Interval History: Ms. Blackburn is a 73 year old female with history of COPD on 2L O2 at home, CAD and tracheomalacia pt presented to ED due to RLE weakness and SOB. Patient woke up with symptoms about 24 hours prior to ER visit. She said shortness of breath is worse than her baseline. She denied any cough. She was admitted in the hospital and placed her on tour escort. She did have hyponatremia with Na @ 125. Her CT of head did not show acute intracranial abnormality. Her brain MRI showed 6 mm of acute infarct involving the left thalamus. Pt was seen and examined at bed side. She still has some weakness in Rt upper and lower extremity. She denied any headache / blurry vision. Her SOB also better. - Exam Vitals: Temp Pulse Resp BP Pulse Ox 97.4 F L 91 18 138/85 94 11/11/18 10:26 11/11/18 10:26 11/11/18 12:02 11/11/18 10:26 11/11/18 12:02 Exam: Gen: Alert, awake, Oriented to time,place and person Chest: Diminished breath sounds B/L, Mild to moderate wheezing, No crackles, No rales Heart: S1S2+ RRR No murmurs Abd: Soft, NT, BS +, No organomegaly Ext: No edema, pulses are palpable, No calf tenderness Neuro : mild RUE and RLE weakness. Motor strength 4/5, no loss of sensation.. No facial droop noticed Skin: No rash. - Assessment and Plan (1) Hyponatremia with decreased serum osmolality Current Visit: No Status: Acute Assessment and Plan: Due to dehydration .. hypovolemic restrict free water intake started on NS @ 125 ml/hr Her Na was @ 117 this morning Started on Q6hr Na checks Ordered Serum osmolality and urine osmolality ordered Urine Na levels consulted Nephro for further eval Will correct Na slowly..with goal of 0.5 meq/hr , but not more than 8-10 meq/day Patient does need to stay in the hospital more than 2 midnights due to her complex medical problems. So we will change her to full admission today. I did review my colleague Dr. Lanier's H & P including HPI, PMH, PSH, FH, SH, and ROS no changes noticed (2) COPD exacerbation Current Visit: No Status: Acute Assessment and Plan: She does have mild COPD exacerbation improving today currently on 2 lit O2.. at baseline continue frequent bronchodilator therapy start tapering systemic steroids (3) Right leg weakness Current Visit: Yes Status: Acute Assessment and Plan: MRI of Brain showed 6 mm of acute infarct involving the left thalamus Not a candidate for tPA since pt came to ER after 24hrs since symptoms started Cont ASA and Plavix Switched to Lipitor 80mg HS PT / OT eval Neuro on board appreciate recommendations (4) Left thalamic infarction Current Visit: Yes Status: Acute Assessment and Plan: care as above (5) GERD (gastroesophageal reflux disease) Current Visit: No Status: Chronic Assessment and Plan: will start her on PPI (6) CHF (congestive heart failure) Current Visit: No Status: Chronic Assessment and Plan: Not in acute exacerbation. cont home meds (7) CAD (coronary artery disease) Current Visit: No Status: Chronic Assessment and Plan: resumed all home meds ASA, Plavix, Statin and BB (8) Hypertension Current Visit: No Status: Chronic Assessment and Plan: Little better now cont current regimen Cont monitoring closely for now (9) Tracheomalacia Current Visit: No Status: Chronic (10) Physical deconditioning Current Visit: No Status: Acute Assessment and Plan: PT / OT eval (11) NUBIA (obstructive sleep apnea) Current Visit: No Status: Chronic (12) DVT prophylaxis Current Visit: No Status: Acute Assessment and Plan: on SQ heparin - Time Spent with Patient Total time spent is greater than 50% in coordination of care (as documented) at patient's floor/unit and/or counseling patient: Internal Medicine: Result - Labs CBC & Chem 7: 11/10/18 08:26 11/11/18 09:45 Labs: BMP 11/11/18 11/11/18 06:17 09:45 Sodium 119 L* 117 L* Potassium 4.7 Chloride 86 L Carbon Dioxide 26 BUN 14 Creatinine 0.63 Glucose 113 H Calcium 9.1 Urine 11/10/18 Range/Units 18:33 Urine Color Yellow (Yellow) Urine Clarity Clear (Clear) Urine pH 7.0 (5.0-8.0) pH Units Ur Specific [place] 1.017 (1.010-1.025) Urine Protein 30 H (Neg-Trace) mg/dL Urine Glucose (UA) Normal (Normal) mg/dL - ABG Interpretation ABG results: PT/INR, D-dimer PT 11.0 Seconds (9.4-12.1) 11/10/18 08:26 - Impressions Impressions Echocardiogram 11/10/18 11:59 Impressions: Incomplete exam - patient unable to cooperate. Not enough data to report. Findings: Study Quality * Incomplete exam - patient unable to cooperate. * Six images were obtained. Brain MRI 11/10/18 12:19 IMPRESSION: There is a 6 mm of acute infarct involving the left thalamus. No other areas of restricted diffusion are identified. Cerebral atrophy. Mild chronic small vessel ischemic changes. D/ / 11/10/2018 14:33:47 Sylvia Vega MD / oneal Interpreting Provider: Sylvia Vega MD Consult Discharge Plan - Plan Referrals: Dmitri Pena MD [Partnered Physician] - 12/15/18 10:00 am Paula Casiano CNP [Primary Care Provider] - 11/18/18 1:30 pm () Willem Reid MD [Partnered Physician] - 12/08/18 10:00 am Davi Moscoso MD [Partnered Physician] - 11/24/18 11:00 am (5) GERD (gastroesophageal reflux disease) Qualifiers: Esophagitis presence: without esophagitis Qualified Code(s): K21.9 - Gastro- esophageal reflux disease without esophagitis (6) CHF (congestive heart failure) Qualifiers: Heart failure type: diastolic Heart failure chronicity: chronic Qualified Code(s): I50.32 - Chronic diastolic (congestive) heart failure (7) CAD (coronary artery disease) Qualifiers: Coronary Disease-Associated Artery/Lesion type: [place] artery [place] vs. transplanted heart: [place] heart Associated angina: without angina Qualified Code(s): I25.10 - Atherosclerotic heart disease of [place] coronary artery without angina pectoris (8) Hypertension Qualifiers: Hypertension type: essential hypertension Qualified Code(s): I10 - Essential (primary) hypertension
[2018-11-11] MEDS: Loratadine 10 MG TABLET PO SCH (21:31)
[2018-11-11] MEDS: ALPRAZolam 0.25 MG TABLET PO SCH (21:31)
[2018-11-11] MEDS: Fluticasone Propionate Nasal 50 MCG/SPRAY BOTTLE NS SCH (22:16)
[2018-11-12] MEDS: Ipratropium/Albuterol Neb 3 ML IH SCH ×3 (00:13→07:31)
[2018-11-12] MEDS: 0.9 % Sodium Chloride 1,000 ML IVC SCH (02:02)
[2018-11-12 05:07] LABS: BUN/Creatinine Ratio 22 (6-26); Blood Urea Nitrogen 12 mg/dL (8-23); Calcium 8.3 mg/dL (8.6-10.3); Carbon Dioxide 26 mEq/L (23-29); Chloride 94 mEq/L (98-107); Glucose 86 mg/dL (70-105); Osmolality,Calculated 261 (280-300); Potassium 4.1 mEq/L (3.5-5.1); Sodium 126 mEq/L (136-145); Uric Acid 2.7 mg/dL (2.3-7.6); eGFR For African Americans > 60 (> 60); eGFR For Non-African Americans > 60 (> 60)
[2018-11-12] MEDS: *HR* Heparin 5,000 UNIT/ML VIAL SQ SCH ×2 (05:40→18:37)
[2018-11-12] MEDS ORDERED: 0.9 % Sodium Chloride 1,000 ML IVC SCH (05:44)
[2018-11-12] MEDS: Budesonide/Formoterol 160/4.5 1 PUFF INH IH SCH ×2 (07:32→20:12)
[2018-11-12] MEDS: methIMAzole 5 MG TABLET PO SCH (07:35)
[2018-11-12] MEDS: ALPRAZolam 0.25 MG TABLET PO PRN (07:37)
[2018-11-12] MEDS: Aspirin Enteric Coated 81 MG Tablet PO SCH (07:37)
[2018-11-12] MEDS: Loratadine 10 MG TABLET PO SCH ×2 (07:37→18:37)
[2018-11-12] MEDS: Metoprolol XL (24 HR) Succ 25 MG TAB.ER.24H PO SCH ×2 (07:38→19:58)
[2018-11-12] MEDS: Fluticasone Propionate Nasal 50 MCG/SPRAY BOTTLE NS SCH ×2 (07:41→19:58)
[2018-11-12] MEDS ORDERED: predniSONE 20 MG TABLET PO SCH (09:00)
[2018-11-12] MEDS ORDERED: LORATADINE 5 MG PO SCH (09:00)
[2018-11-12] MEDS: Tiotropium 18 MCG inhalation IH SCH (11:04)
--- NOTE | 2018-11-12 11:38 | Internal Med Progress Note ---
Hospitalist Progress Note - Encounter Date of Encounter: 11/12/18 Time of Encounter: 11:35 - Subjective Interval History: Patient lying down in bed. Comfortable. Concerned that she is getting DuoNeb's and she has had issues with that in the past due to her underlying tracheobronchomalacia. She prefers albuterol inhaler plus Spiriva. She is also concerned that she is getting prednisone which also causes issues for her. She prefers getting solu Medrol. Chest pain or palpitations. Continues to have some right upper and lower extremity weakness. - Exam Vitals: Temp Pulse Resp BP Pulse Ox 98.5 F 85 16 170/84 99 11/12/18 11:10 11/12/18 11:10 11/12/18 11:10 11/12/18 11:10 11/12/18 11:10 Exam: General: Patient is alert, no acute distress, oriented x 3 Respiratory: Prolonged expiratory phase. Mild bilateral wheezing Cardiovascular: Regular rate and rhythm. s1 and s2 normal No clicks, rubs, gallops, or murmurs. No pedal edema Abdomen: Abdomen is soft, nontender. Bowel sounds are present Musculoskeletal: Spontaneously moving all extremities Skin: warm, dry, intact. Neuro: Alert oriented x 3 normal cranial nerves, right-sided upper and lower e xtremity weakness - Assessment and Plan (1) Left thalamic infarction Current Visit: Yes Status: Acute (2) GERD (gastroesophageal reflux disease) Current Visit: Yes Status: Chronic (3) COPD exacerbation Current Visit: Yes Status: Acute (4) DVT prophylaxis Current Visit: Yes Status: Acute (5) CHF (congestive heart failure) Current Visit: Yes Status: Chronic (6) CAD (coronary artery disease) Current Visit: Yes Status: Chronic (7) Hyponatremia with decreased serum osmolality Current Visit: Yes Status: Acute (8) Hypertension Current Visit: Yes Status: Chronic (9) Tracheomalacia Current Visit: No Status: Chronic (10) Physical deconditioning Current Visit: Yes Status: Acute (11) NUBIA (obstructive sleep apnea) Current Visit: Yes Status: Chronic (12) Right leg weakness Current Visit: Yes Status: Acute DVT Prophylaxis: Continue subcutaneous heparin - Summary of Assessment and Plan Summary of Assessment and Plan: Acute left thalamic stroke: Continue aspirin, Plavix. Patient refusing to take statins. Neurology following. PTOT recommends rehabilitation placement. die out worker will work on this. Acute COPD exacerbation with underlying tracheobronchomalacia: Continue bronchodilators. Will switch prednisone to Solu-Medrol. Continue albuterol inhaler. Add Spiriva. Stop duo nebs. Hyponatremia: Continue fluid restriction. Sodium levels have improved. We will stop IV normal saline infusion. Nephrology following. Chronic diastolic congestive heart failure: Not in acute exacerbation. Essential hypertension: Blood pressure uncontrolled this morning. Resume lisinopril. Continue metoprolol. We will add hydralazine intravenously as needed to keep systolic blood pressure less than 160 now that 48 hours have passed since initial presentation with stroke. Gastroesophageal reflux disease: Continue omeprazole and Gas-X. Hypothyroidism: Continue Tapazole. Moderate risk for complications. Awaiting placement. - Time Spent with Patient Total time spent is greater than 50% in coordination of care (as documented) at patient's floor/unit and/or counseling patient: Internal Medicine: Result - Labs CBC & Chem 7: 11/10/18 08:26 11/12/18 09:14 Labs: BMP 11/11/18 11/11/18 11/12/18 15:44 21:19 03:52 Sodium 118 L* 120 L* 126 L Potassium Chloride Carbon Dioxide BUN Creatinine Glucose Calcium 11/12/18 11/12/18 03:52 09:14 Sodium 126 L 127 L Potassium 4.1 Chloride 94 L Carbon Dioxide 26 BUN 12 Creatinine 0.55 L Glucose 86 Calcium 8.3 L - ABG Interpretation ABG results: PT/INR, D-dimer PT 11.0 Seconds (9.4-12.1) 11/10/18 08:26 Consult Discharge Plan - Plan Referrals: Dmitri Pena MD [Partnered Physician] - 12/15/18 10:00 am Paula Casiano CNP [Primary Care Provider] - 11/18/18 1:30 pm () Willem Reid MD [Partnered Physician] - 12/08/18 10:00 am Davi Moscoso MD [Partnered Physician] - 11/24/18 11:00 am (2) GERD (gastroesophageal reflux disease) Qualifiers: Esophagitis presence: without esophagitis Qualified Code(s): K21.9 - Gastro- esophageal reflux disease without esophagitis (5) CHF (congestive heart failure) Qualifiers: Heart failure type: diastolic Heart failure chronicity: chronic Qualified Code(s): I50.32 - Chronic diastolic (congestive) heart failure (6) CAD (coronary artery disease) Qualifiers: Coronary Disease-Associated Artery/Lesion type: [place] artery [place] vs. transplanted heart: [place] heart Associated angina: without angina Qualified Code(s): I25.10 - Atherosclerotic heart disease of [place] coronary artery without angina pectoris (8) Hypertension Qualifiers: Hypertension type: essential hypertension Qualified Code(s): I10 - Essential (primary) hypertension
[2018-11-12] MEDS ORDERED: MethylPREDNISolone 40 MG/ML VIAL IVP SCH (11:40)
[2018-11-12] MEDS: GuaiFENesin Liq 200 MG/10 ML UDC PO PRN ×2 (12:22→18:37)
[2018-11-12] MEDS ORDERED: hydrOXYzine pamoate 25 MG CAPSULE PO PRN (12:58)
[2018-11-12] MEDS ORDERED: NON-FORMULARY MEDICATION 1 EACH EACH (Diclofenac Sodium [Voltaren] 1 APPL) TP PRN (13:05)
--- NOTE | 2018-11-12 14:42 | Nephrology Progress Note ---
Date of Encounter: 11/12/18 Time of Encounter: 10:10 - Assessment and Plan (1) Hyponatremia Current Visit: No Status: Chronic Hyponatremia, improving. I recommend stopping IV fluids, and enforcing a fluid restriction of approximately less than 1.5 L per day. Her random cortisol was low, and this may be due to artificial suppression from the methylprednisolone that was recently started. Consider checking a proper stem test to ensure the hyponatremia is not secondary to adrenal insufficiency. My colleague Dr. Pike will be utilization management nurse tomorrow, and I will provide a thorough handoff. Thank you Subjective Principal diagnosis: Acute CVA Interval history: She transferred to the 2A floor, and reported feeling about the same. We discussed her fluid intake. She did not affirm active vomiting or diarrhea, though she did report feeling some fatigue. I discussed her care with the ospitalist. She is now off IV fluids and on a fluid restriction. Objective - Vital Signs Vital signs: Vital Signs Temp Pulse Resp BP Pulse Ox 11/12/18 11:10 98.5 F 85 16 170/84 99 11/12/18 11:04 16 99 11/12/18 07:34 17 98 11/12/18 07:20 92 11/12/18 06:46 98.4 F 91 20 137/84 100 11/12/18 04:27 98.2 F 97 16 148/76 97 11/12/18 04:05 18 97 11/11/18 23:28 97.4 F L 94 18 147/84 98 11/11/18 20:32 20 97 11/11/18 19:20 98.4 F 96 18 157/90 99 11/11/18 16:08 18 98 11/11/18 15:50 98.2 F 99 16 162/96 98 Intake and Output 11/11/18 11/12/18 11/12/18 23:59 07:59 15:59 Intake Total 1000 / 1000 1000 / 1240 240 / 1240 Output Total 2250 / 2500 250 / 2500 Balance 1000 / 775 -1250 / -1260 -10 / -1260 Intake: IV Fluids 1000 / 1000 1000 / 1000 0.9 % Sodium Chloride 1,000 ML 1000 / 1000 1000 / 1000 @ 125 mls/hr IVC .Q8H HANNAH Rx#: [id number] Oral 240 / 240 Output: Urine 2250 / 2500 250 / 2500 Other: Meal Breakfast Percent of Meal Consumed 100% Stool Size Large Large Stool Consistency formed loose liquid Stool Characteristics Normal for Patient Stool Color Brown Brown Black # Voids 1 1 # Bowel Movements 1 Weight 55.2 kg - General Appearance Exam: General appearance: cachectic, fatigue, frail EENT: ATNC, mucous membranes dry Neck: no JVD, supple Respiratory: no kyphosis, clear Cardiology: no edema, normal S1, normal S2 Gastrointestinal: normoactive bowel sounds, no guarding Neurologic: alert and oriented x3 Additional Comments: generalized right sided weakness Musculoskeletal: no cyanosis, no clubbing Psychiatric: cooperative - Lab 11/10/18 08:26 11/13/18 04:28 Most recent lab results 11/12/18 03:52 Calcium 8.3 L Consult Discharge Plan - Plan Referrals: Dmitri Pena MD [Partnered Physician] - 12/15/18 10:00 am Paula Casiano CNP [Primary Care Provider] - 11/18/18 1:30 pm () Willem Reid MD [Partnered Physician] - 12/08/18 10:00 am Davi Moscoso MD [Partnered Physician] - 11/24/18 11:00 am
[2018-11-12] MEDS ORDERED: ALPRAZolam 0.25 MG TABLET PO ONE (15:02)
[2018-11-12] MEDS: Oxymetazoline Nasal SPRAY BOTTLE NS PRN (15:16)
[2018-11-12] MEDS: Lactulose Oral Soln 20 GM/30 ML UDC PO SCH (19:58)
[2018-11-12] MEDS ORDERED: ALPRAZolam 0.5 MG TABLET PO SCH (21:00)
[2018-11-12] MEDS: ALPRAZolam 0.25 MG TABLET PO SCH (21:41)
[2018-11-13] MEDS: GuaiFENesin Liq 200 MG/10 ML UDC PO PRN ×4 (04:08→21:00)
[2018-11-13 05:07] LABS: BUN/Creatinine Ratio 15 (6-26); Blood Urea Nitrogen 10 mg/dL (8-23); Calcium 9.3 mg/dL (8.6-10.3); Carbon Dioxide 31 mEq/L (23-29); Chloride 95 mEq/L (98-107); Glucose 94 mg/dL (70-105); Osmolality,Calculated 275 (280-300); Potassium 4.1 mEq/L (3.5-5.1); Sodium 133 mEq/L (136-145); eGFR For African Americans > 60 (> 60); eGFR For Non-African Americans > 60 (> 60)
[2018-11-13] MEDS: ALPRAZolam 0.25 MG TABLET PO PRN (05:22)
[2018-11-13] MEDS: *HR* Heparin 5,000 UNIT/ML VIAL SQ SCH ×2 (05:22→16:56)
[2018-11-13] MEDS: Budesonide/Formoterol 160/4.5 1 PUFF INH IH SCH ×2 (07:17→19:29)
[2018-11-13] MEDS: Tiotropium 18 MCG inhalation IH SCH (07:18)
[2018-11-13] MEDS: Lactulose Oral Soln 20 GM/30 ML UDC PO SCH ×2 (08:53→20:58)
[2018-11-13] MEDS: Fluticasone Propionate Nasal 50 MCG/SPRAY BOTTLE NS SCH ×2 (08:55→20:57)
[2018-11-13] MEDS: Isosorbide MONOnitrate (24 HR) 30 MG TAB.ER.24H PO SCH (08:55)
[2018-11-13] MEDS: Metoprolol XL (24 HR) Succ 25 MG TAB.ER.24H PO SCH ×2 (08:56→20:59)
[2018-11-13] MEDS: methIMAzole 5 MG TABLET PO SCH (08:56)
[2018-11-13] MEDS: Aspirin Enteric Coated 81 MG Tablet PO SCH (08:56)
[2018-11-13] MEDS ORDERED: NON-FORMULARY MEDICATION 1 EACH EACH (Levocetirizine Dihydrochloride [Allergy Relief (Xyza PO SCH (09:00)
--- NOTE | 2018-11-13 11:58 | Discharge Summary ---
- NOTES TO OUTPATIENT PROVIDER Notes to Outpatient Provider: Patient with a history of COPD, tracheobronchomalacia and chronic hypoxic respiratory failure who was hospitalized here for right lower extremity weakness and shortness of breath. She was evaluated for stroke and underwent MRI of the brain which showed that left dynamic infarct. Neurology was consulted and recommended that the patient continue aspirin and Plavix. Patient has refused taking statin medications. Patient was also treated for COPD exacerbation with bronchodilators, steroids. She is now doing much better and is clinically stable to be discharged to skilled rehabilitation. Orders not resulted at time of discharge: Pending orders 11/13/18 10:02 EV echocardiogram Routine 11/14/18 04:00 Basic Metabolic Panel AM 0400 11/15/18 04:00 Basic Metabolic Panel AM 0400 Date of Encounter: 11/13/18 Time of Encounter: 11:54 - Discharge Diagnosis (1) Left thalamic infarction Priority: Primary Status: Acute (2) GERD (gastroesophageal reflux disease) Priority: Secondary Status: Chronic Qualifiers: Esophagitis presence: without esophagitis Qualified Code(s): K21.9 - Gastro-esophageal reflux disease without esophagitis (3) COPD exacerbation Priority: Secondary Status: Acute (4) CHF (congestive heart failure) Priority: Secondary Status: Chronic Qualifiers: Heart failure type: diastolic Heart failure chronicity: chronic Qualified Code(s): I50.32 - Chronic diastolic (congestive) heart failure (5) CAD (coronary artery disease) Priority: Secondary Status: Chronic Qualifiers: Coronary Disease-Associated Artery/Lesion type: [place] artery [place] vs. transplanted heart: [place] heart Associated angina: without angina Qualified Code(s): I25.10 - Atherosclerotic heart disease of [place] coronary artery without angina pectoris (6) Hyponatremia with decreased serum osmolality Priority: Secondary Status: Acute (7) Hypertension Priority: Secondary Status: Chronic Qualifiers: Hypertension type: essential hypertension Qualified Code(s): I10 - Essential (primary) hypertension (8) Tracheomalacia Priority: Secondary Status: Chronic (9) Physical deconditioning Priority: Secondary Status: Acute (10) NUBIA (obstructive sleep apnea) Priority: Secondary Status: Chronic (11) Right leg weakness Priority: Secondary Status: Acute (12) DVT prophylaxis Priority: Secondary Status: Acute Hospital course: Ms. Blackburn is a 73 year old female Patient with a history of COPD, tracheobronchomalacia and chronic hypoxic respiratory failure who was hospitalized here for right lower extremity weakness and shortness of breath. She was evaluated for stroke and underwent MRI of the brain which showed that left dynamic infarct. Neurology was consulted and recommended that the patient continue aspirin and Plavix. Patient has refused taking statin medications. Patient was also treated for COPD exacerbation with bronchodilators, steroids. She is now doing much better and is clinically stable to be discharged to skilled rehabilitation. Patient claims intolerance to steroids and so she is not being discharged on any steroid taper. Her respiratory status is at baseline. Patient also has severe anxiety that is poorly controlled and she is recommended to follow up with the psychiatrist to get treated appropriately for this. Patient presently takes Xanax twice a day as needed to control her symptoms which is not the optimal therapy. 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 She was placed on fluid restriction with improvement of her sodium levels. She is advised to remain on strict fluid restriction of 1.5 L of free water daily. Discharge discussed with: patient, nurse, case management - Time Spent with Patient Total time spent providing and/or coordinating discharge services: Time spent: Greater than 30 minutes - Discharge Medications Prescriptions: Continued Nitroglycerin [Nitrostat] 0.4 mg SL Q5M PRN PRN Reason: Chest Pain Acetaminophen [Tylenol] 1,000 mg PO Q6HR PRN PRN Reason: Pain Tiotropium [Spiriva] 18 mcg IH 0800 Aspirin [Lo-Dose Aspirin EC] 81 mg PO DAILY Albuterol Sulfate [Proair Hfa] 2 puff IH Q4H PRN PRN Reason: Shortness Of Breath Simethicone [Gas-X] 80 mg PO 1-3XD PRN PRN Reason: Congestion Budesonide/Formoterol 160/4.5 [Symbicort 160/4.5] 2 puff IH BIDR Bisacodyl [Dulcolax] 10 mg RC DAILY PRN PRN Reason: Constipation Docusate [Colace] 200 mg PO TID Multivitamin [One Daily Essential] 1 tab PO DAILY methIMAzole [Tapazole] 7.5 mg PO DAILY GuaiFENesin Liq [Robitussin Liq] 200 mg PO Q4H PRN PRN Reason: Congestion Metoprolol Succinate [Toprol Xl] 25 mg PO BID Clopidogrel [Plavix] 75 mg PO DAILY Diclofenac Sodium [Voltaren] 1 appl TP DAILY PRN PRN Reason: Mild To Moderate Pain Oxymetazoline [Afrin] 1 spray NS Q12HR PRN PRN Reason: Nasal Congestion Oxygen 2.5 l NS AD Guaifenesin [Mucinex] 600 mg PO Q12H Cetirizine HCl [Allergy Relief] 10 mg PO DAILY Isosorbide MONOnitrate [Isosorbide Mononitrate ER] 30 mg PO QAM Lactulose 10 gm PO BID Lisinopril 2.5 mg PO DAILY Loratadine [Claritin] 5 mg PO BID Polyvinyl Alcohol [Artificial Tears] 1 drop BOTH EYES QID PRN PRN Reason: Dry Eyes Rabeprazole Sodium [Aciphex] 20 mg PO DAILY Selenium 200 mcg PO DAILY Fluticasone Propionate Nasal [Flonase] 2 spray NS BID Levocetirizine Dihydrochloride [Allergy Relief (Xyzal)] 5 mg PO DAILY ALPRAZolam [Xanax 0.25 MG Tablet] 0.25 mg PO DAILY PRN 7 Days #7 tablet PRN Reason: Anxiety ALPRAZolam [Xanax 0.5 MG Tablet] 0.5 mg PO HS 7 Days #7 tablet Home Medications: Nitroglycerin [Nitrostat] 0.4 mg SL Q5M PRN 11/22/15 [History] Acetaminophen [Tylenol] 1,000 mg PO Q6HR PRN 12/20/15 [History] Tiotropium [Spiriva] 18 mcg IH 0800 01/04/16 [History] Albuterol Sulfate [Proair Hfa] 2 puff IH Q4H PRN 11/17/16 [History] Aspirin [Lo-Dose Aspirin EC] 81 mg PO DAILY 11/17/16 [History] Simethicone [Gas-X] 80 mg PO 1-3XD PRN 12/26/16 [History] Budesonide/Formoterol 160/4.5 [Symbicort 160/4.5] 2 puff IH BIDR 02/19/17 [History] Bisacodyl [Dulcolax] 10 mg RC DAILY PRN 08/05/17 [History] Docusate [Colace] 200 mg PO TID 08/05/17 [History] Multivitamin [One Daily Essential] 1 tab PO DAILY 08/05/17 [History] Clopidogrel [Plavix] 75 mg PO DAILY 01/09/18 [History] Diclofenac Sodium [Voltaren] 1 appl TP DAILY PRN 01/09/18 [History] GuaiFENesin Liq [Robitussin Liq] 200 mg PO Q4H PRN 01/09/18 [History] Metoprolol Succinate [Toprol Xl] 25 mg PO BID 01/09/18 [History] Oxymetazoline [Afrin] 1 spray NS Q12HR PRN 01/09/18 [History] methIMAzole [Tapazole] 7.5 mg PO DAILY 01/09/18 [History] Cetirizine HCl [Allergy Relief] 10 mg PO DAILY 11/10/18 [History] Fluticasone Propionate Nasal [Flonase] 2 spray NS BID 11/10/18 [History] Guaifenesin [Mucinex] 600 mg PO Q12H 11/10/18 [History] Isosorbide MONOnitrate [Isosorbide Mononitrate ER] 30 mg PO QAM 11/10/18 [History] Lactulose 10 gm PO BID 11/10/18 [History] Levocetirizine Dihydrochloride [Allergy Relief (Xyzal)] 5 mg PO DAILY 11/10/18 [History] Lisinopril 2.5 mg PO DAILY 11/10/18 [History] Loratadine [Claritin] 5 mg PO BID 11/10/18 [History] Oxygen 2.5 l NS AD 11/10/18 [History] Polyvinyl Alcohol [Artificial Tears] 1 drop BOTH EYES QID PRN 11/10/18 [History] Rabeprazole Sodium [Aciphex] 20 mg PO DAILY 11/10/18 [History] Selenium 200 mcg PO DAILY 11/10/18 [History] ALPRAZolam [Xanax 0.25 MG Tablet] 0.25 mg PO DAILY PRN 7 Days #7 tablet 11/13/18 [Rx] ALPRAZolam [Xanax 0.5 MG Tablet] 0.5 mg PO HS 7 Days #7 tablet 11/13/18 [Rx] Allergies/Adverse Reactions: Allergy/AdvReac Type Severity Reaction Status Date / Time acetylcysteine Allergy Severe Anaphylaxis Verified 11/10/18 21:02 albuterol [From DuoNeb] Allergy See Verified 11/10/18 21:02 Comments amlodipine [From Norvasc] Allergy See Verified 11/10/18 21:02 Comments carvedilol [From Coreg] Allergy See Verified 11/10/18 21:02 Comments cefdinir Allergy See Verified 11/10/18 21:02 Comments diltiazem [From Cardizem] Allergy See Verified 11/10/18 21:02 Comments ipratropium [From Atrovent] Allergy See Verified 11/10/18 21:02 Comments levofloxacin [From Levaquin] Allergy See Verified 11/10/18 21:02 Comments metoclopramide [From Reglan] Allergy See Verified 11/10/18 21:02 Comments metoprolol Allergy See Verified 11/10/18 21:02 Comments ramelteon [From Rozerem] Allergy Difficulty Verified 11/10/18 21:02 Breathing roflumilast [From Daliresp] Allergy See Verified 11/10/18 21:02 Comments Amoxicillin [From Augmentin] AdvReac Intermediate Nausea Verified 11/10/18 21:02 azithromycin [From Zithromax] AdvReac Intermediate Nausea Verified 11/10/18 21:02 clavulanic acid AdvReac Intermediate Nausea Verified 11/10/18 21:02 [From Augmentin] dexlansoprazole AdvReac Mild Headache Verified 11/10/18 21:02 [From Dexilant] prednisone AdvReac Mild See Verified 11/10/18 21:02 Comments sertraline [From Zoloft] AdvReac Mild Depression Verified 11/10/18 21:02 tetracycline [Tetracycline] AdvReac Mild Nausea Verified 11/10/18 21:02 Varenicline [From Chantix] AdvReac Mild Nightmare Verified 11/10/18 21:02 Date of admission: 11/11/18 11:13 Primary care physician: Paula Casiano CNP Consults: 11/10/18 11:57 Consult to Occupational Therapy [CONS] Routine Comment: Evaluate, develop and implement POC Reason for Consult: weakness Does patient have active BEDREST order?: No Is patient medically & hemodynamically stable?: Yes Consult to Physical Therapy [CONS] Routine Comment: Evaluate, develop and implement POC Reason for Consult: weakness Does patient have active BEDREST order?: No Is patient medically & hemodynamically stable?: Yes 11/10/18 12:19 Consult to Neurology [CONS] Routine Consulting Provider: Neurology [facility] Reason for Consult: rule out CVA Call Completed: Yes 11/10/18 15:29 Consult to Health Support Specialist [CONS] Routine Reason for SW Consult: possible need for placement at discharge 11/11/18 09:22 Consult to Nephrology [CONS] Routine Consulting Provider: Kidney Tierney/JM/IDANIA/CASPER Reason for Consult: Acute hyponatremia Time Notified: :23 Call Completed: Yes 11/12/18 08:30 Consult to Nurse Navigator [CONS] Routine Comment: copd Discharging clinician: Maria Teresa Lopez Anticipated date of discharge: 11/13/18 - Constitutional Vitals: Temp Pulse Resp BP Pulse Ox 97.8 F 94 18 154/79 99 11/13/18 07:47 11/13/18 07:47 11/13/18 10:55 11/13/18 07:47 11/13/18 10:55 General appearance: Present: mild distress, A&O X 3 Exam: General: Patient is alert, no acute distress, oriented x 3 ENT: Mucous membranes moist Respiratory: Prolonged expiratory phase. Good air entry bilaterally Cardiovascular: Regular rate and rhythm. s1 and s2 normal No clicks, rubs, gallops, or murmurs. No pedal edema Abdomen: Abdomen is soft, nontender. Bowel sounds are present Musculoskeletal: Spontaneously moving all extremities Skin: warm, dry, intact. Psych: Anxious affect Neuro: Alert oriented x 3 normal cranial nerves, no focal deficits - Patient Status Disposition: Transfer SNF Condition: Fair Functional capacity at discharge: uses cane/walker Overall status at discharge: patient is progressing back to baseline - Discharge Instructions Follow Up With: Dmitri Pena MD [Partnered Physician] - 12/15/18 10:00 am Paula Casiano CNP [Primary Care Provider] - 11/18/18 1:30 pm () Willem Reid MD [Partnered Physician] - 12/08/18 10:00 am Davi Moscoso MD [Partnered Physician] - 11/24/18 11:00 am - Diet and Activity Activity: as per physical therapy, increase activity as tolerated, wear oxygen at all times Diet: low fat, low cholesterol, low salt diet, other (Free water restriction to 1.5 L per day)
--- NOTE | 2018-11-13 16:26 | Nephrology Progress Note ---
Date of Encounter: 11/13/18 Time of Encounter: 12:00 - Assessment and Plan (1) Hyponatremia Current Visit: No Status: Chronic Sodium now at 133 which is about baseline Continue fluid restriction at 1.5liters a day Continue liberalized sodium in diet Will sign off, please reconsult prn Subjective Principal diagnosis: Acute CVA Interval history: Interim noted, pt seen and examined with hyponatremia improved to 133 today. Discussed fluid restriction with pt Objective - Vital Signs Vital signs: Vital Signs Temp Pulse Resp BP Pulse Ox 11/13/18 15:09 18 90 11/13/18 11:52 98.8 F 92 16 154/87 98 11/13/18 10:55 18 99 11/13/18 07:47 97.8 F 94 16 154/79 98 11/13/18 07:23 16 100 11/13/18 05:02 98.4 F 96 16 154/76 100 11/13/18 04:29 22 97 11/13/18 00:09 98.2 F 85 16 112/66 99 11/12/18 20:13 18 99 11/12/18 19:48 98.2 F 103 16 136/71 97 11/12/18 18:48 19 165/87 97 11/12/18 17:47 111 Intake and Output 11/13/18 11/13/18 11/13/18 07:59 15:59 23:59 Intake Total 0 / 0 Output Total 400 / 400 0 / 400 Balance -400 / -400 0 / -400 Intake: Oral 0 / 0 Output: Urine 400 / 400 0 / 400 Other: Weight 55.8 kg Patient Weight 11/13/18 23:59 Weight 55.8 kg - General Appearance General appearance: Present: well-developed, well-nourished EENT: Present: ATNC, mucous membranes moist Neck: Present: no JVD, supple Respiratory: Present: clear Cardiology: Present: no edema, normal S1, normal S2 Gastrointestinal: Present: no tenderness, no guarding Integumentary: Present: warm and dry Neurologic: Present: no focal deficit Musculoskeletal: Present: no deformities Psychiatric: Present: mood/affect appropriate, cooperative - Lab 11/10/18 08:26 11/13/18 04:28 Most recent lab results 11/13/18 04:28 Calcium 9.3 Consult Discharge Plan - Plan Referrals: Dmitri Pena MD [Partnered Physician] - 12/15/18 10:00 am Paula Casiano CNP [Primary Care Provider] - 11/18/18 1:30 pm () Willem Reid MD [Partnered Physician] - 12/08/18 10:00 am Davi Moscoso MD [Partnered Physician] - 11/24/18 11:00 am Prescriptions: ALPRAZolam [Xanax 0.25 MG Tablet] 0.25 mg PO DAILY PRN 7 Days #7 tablet PRN Reason: Anxiety ALPRAZolam [Xanax 0.5 MG Tablet] 0.5 mg PO HS 7 Days #7 tablet
[2018-11-13] MEDS: Loratadine 10 MG TABLET PO SCH (16:56)
[2018-11-13] MEDS ORDERED: ALPRAZolam 0.25 MG TABLET PO ONE (17:28)
[2018-11-13] MEDS: Oxymetazoline Nasal SPRAY BOTTLE NS PRN (18:00)
[2018-11-13] MEDS: ALPRAZolam 0.25 MG TABLET PO SCH (22:07)
[2018-11-14] MEDS: ALPRAZolam 0.25 MG TABLET PO PRN (04:55)
[2018-11-14] MEDS: *HR* Heparin 5,000 UNIT/ML VIAL SQ SCH ×3 (04:55→16:49)
[2018-11-14] MEDS: GuaiFENesin Liq 200 MG/10 ML UDC PO PRN ×4 (04:58→21:36)
[2018-11-14] MEDS: Budesonide/Formoterol 160/4.5 1 PUFF INH IH SCH ×2 (07:31→20:09)
[2018-11-14] MEDS: Tiotropium 18 MCG inhalation IH SCH (07:31)
[2018-11-14 08:25] LABS: BUN/Creatinine Ratio 12 (6-26); Blood Urea Nitrogen 7 mg/dL (8-23); Calcium 8.9 mg/dL (8.6-10.3); Carbon Dioxide 33 mEq/L (23-29); Chloride 96 mEq/L (98-107); Glucose 95 mg/dL (70-105); Osmolality,Calculated 276 (280-300); Potassium 3.9 mEq/L (3.5-5.1); Sodium 134 mEq/L (136-145); eGFR For African Americans > 60 (> 60); eGFR For Non-African Americans > 60 (> 60)
[2018-11-14] MEDS: Isosorbide MONOnitrate (24 HR) 30 MG TAB.ER.24H PO SCH (08:49)
[2018-11-14] MEDS: Lactulose Oral Soln 20 GM/30 ML UDC PO SCH ×2 (08:49→21:36)
[2018-11-14] MEDS: Fluticasone Propionate Nasal 50 MCG/SPRAY BOTTLE NS SCH ×2 (08:51→21:37)
[2018-11-14] MEDS: Aspirin Enteric Coated 81 MG Tablet PO SCH (08:51)
[2018-11-14] MEDS: Metoprolol XL (24 HR) Succ 25 MG TAB.ER.24H PO SCH ×2 (08:51→21:36)
[2018-11-14] MEDS: methIMAzole 5 MG TABLET PO SCH (08:51)
--- NOTE | 2018-11-14 11:23 | Physician Discharge Referral ---
[facility] Referral Info Provider in Charge after Transfer: PCP Institutional Level of Care: Skilled - Diagnosis (1) Left thalamic infarction Priority: Primary Status: Acute (2) GERD (gastroesophageal reflux disease) Priority: Secondary Status: Chronic (3) COPD exacerbation Priority: Secondary Status: Acute (4) CHF (congestive heart failure) Priority: Secondary Status: Chronic (5) CAD (coronary artery disease) Priority: Secondary Status: Chronic (6) Hyponatremia with decreased serum osmolality Priority: Secondary Status: Acute (7) Hypertension Priority: Secondary Status: Chronic (8) Tracheomalacia Priority: Secondary Status: Chronic (9) Physical deconditioning Priority: Secondary Status: Acute (10) NUBIA (obstructive sleep apnea) Priority: Secondary Status: Chronic (11) Right leg weakness Status: Acute (12) DVT prophylaxis Priority: Secondary Status: Acute Prognosis: Fair Aware of Diagnosis: Patient, Family Aware of Prognosis: Patient, Family - Transfer Medications Prescriptions: ALPRAZolam [Xanax 0.25 MG Tablet] 0.25 mg PO DAILY PRN 7 Days #7 tablet PRN Reason: Anxiety ALPRAZolam [Xanax 0.5 MG Tablet] 0.5 mg PO HS 7 Days #7 tablet Home Medications: Nitroglycerin [Nitrostat] 0.4 mg SL Q5M PRN 11/22/15 [History] Acetaminophen [Tylenol] 1,000 mg PO Q6HR PRN 12/20/15 [History] Tiotropium [Spiriva] 18 mcg IH 0800 01/04/16 [History] Albuterol Sulfate [Proair Hfa] 2 puff IH Q4H PRN 11/17/16 [History] Aspirin [Lo-Dose Aspirin EC] 81 mg PO DAILY 11/17/16 [History] Simethicone [Gas-X] 80 mg PO 1-3XD PRN 12/26/16 [History] Budesonide/Formoterol 160/4.5 [Symbicort 160/4.5] 2 puff IH BIDR 02/19/17 [History] Bisacodyl [Dulcolax] 10 mg RC DAILY PRN 08/05/17 [History] Docusate [Colace] 200 mg PO TID 08/05/17 [History] Multivitamin [One Daily Essential] 1 tab PO DAILY 08/05/17 [History] Clopidogrel [Plavix] 75 mg PO DAILY 01/09/18 [History] Diclofenac Sodium [Voltaren] 1 appl TP DAILY PRN 01/09/18 [History] GuaiFENesin Liq [Robitussin Liq] 200 mg PO Q4H PRN 01/09/18 [History] Metoprolol Succinate [Toprol Xl] 25 mg PO BID 01/09/18 [History] Oxymetazoline [Afrin] 1 spray NS Q12HR PRN 01/09/18 [History] methIMAzole [Tapazole] 7.5 mg PO DAILY 01/09/18 [History] Cetirizine HCl [Allergy Relief] 10 mg PO DAILY 11/10/18 [History] Fluticasone Propionate Nasal [Flonase] 2 spray NS BID 11/10/18 [History] Guaifenesin [Mucinex] 600 mg PO Q12H 11/10/18 [History] Isosorbide MONOnitrate [Isosorbide Mononitrate ER] 30 mg PO QAM 11/10/18 [History] Lactulose 10 gm PO BID 11/10/18 [History] Levocetirizine Dihydrochloride [Allergy Relief (Xyzal)] 5 mg PO DAILY 11/10/18 [History] Lisinopril 2.5 mg PO DAILY 11/10/18 [History] Loratadine [Claritin] 5 mg PO BID 11/10/18 [History] Oxygen 2.5 l NS AD 11/10/18 [History] Polyvinyl Alcohol [Artificial Tears] 1 drop BOTH EYES QID PRN 11/10/18 [History] Rabeprazole Sodium [Aciphex] 20 mg PO DAILY 11/10/18 [History] Selenium 200 mcg PO DAILY 11/10/18 [History] ALPRAZolam [Xanax 0.25 MG Tablet] 0.25 mg PO DAILY PRN 7 Days #7 tablet 11/13/18 [Rx] ALPRAZolam [Xanax 0.5 MG Tablet] 0.5 mg PO HS 7 Days #7 tablet 11/13/18 [Rx] Allergies/Adverse Reactions: Allergy/AdvReac Type Severity Reaction Status Date / Time acetylcysteine Allergy Severe Anaphylaxis Verified 11/10/18 21:02 albuterol [From DuoNeb] Allergy See Verified 11/10/18 21:02 Comments amlodipine [From Norvasc] Allergy See Verified 11/10/18 21:02 Comments carvedilol [From Coreg] Allergy See Verified 11/10/18 21:02 Comments cefdinir Allergy See Verified 11/10/18 21:02 Comments diltiazem [From Cardizem] Allergy See Verified 11/10/18 21:02 Comments ipratropium [From Atrovent] Allergy See Verified 11/10/18 21:02 Comments levofloxacin [From Levaquin] Allergy See Verified 11/10/18 21:02 Comments metoclopramide [From Reglan] Allergy See Verified 11/10/18 21:02 Comments metoprolol Allergy See Verified 11/10/18 21:02 Comments ramelteon [From Rozerem] Allergy Difficulty Verified 11/10/18 21:02 Breathing roflumilast [From Daliresp] Allergy See Verified 11/10/18 21:02 Comments Amoxicillin [From Augmentin] AdvReac Intermediate Nausea Verified 11/10/18 21:02 azithromycin [From Zithromax] AdvReac Intermediate Nausea Verified 11/10/18 21:02 clavulanic acid AdvReac Intermediate Nausea Verified 11/10/18 21:02 [From Augmentin] dexlansoprazole AdvReac Mild Headache Verified 11/10/18 21:02 [From Dexilant] prednisone AdvReac Mild See Verified 11/10/18 21:02 Comments sertraline [From Zoloft] AdvReac Mild Depression Verified 11/10/18 21:02 tetracycline [Tetracycline] AdvReac Mild Nausea Verified 11/10/18 21:02 Varenicline [From Chantix] AdvReac Mild Nightmare Verified 11/10/18 21:02 - Respiratory Orders Oxygen / L per min (2) Smoking Cessation: Smoking cessation has been advised. For more information, call the [place] Tobacco Quit Line at 5-875-TGNZ-NOW. - Advance Directives Code Status: DNR-Arrest/Don't Intubate - Mobility Orders Chair, Ambulate (Per PT) - Rehabiliation Orders Rehab Potential: Fair Rehab Orders: Evaluation for Physical Therapy, Evaluation for Occupational Therapy - Diet Orders Cardiac (Restrict free water to 1.5 L per day) CERTIFICATION: I certify that the transfer of the above named patient to an Extended Care Facility is necessary for the continuing treatment of the diagnosis listed. The above information is true and accurate reflection of patient's current condition. Confidential - Redisclosure prohibited without a patient's written consent.
--- NOTE | 2018-11-14 13:48 | Internal Med Progress Note ---
Hospitalist Progress Note - Encounter Date of Encounter: 11/14/18 Time of Encounter: 13:45 - Subjective Interval History: Patient is awake and alert. Doing well this morning. Denies any new complaints. Does have persistent right-sided weakness. - Exam Vitals: Temp Pulse Resp BP Pulse Ox 98.6 F 74 16 165/80 100 11/14/18 11:23 11/14/18 11:23 11/14/18 11:23 11/14/18 13:44 11/14/18 11:23 Exam: General: Patient is alert, no acute distress, oriented x 3 ENT: Mucous membranes moist; intermittent stridor Respiratory: Prolonged expiratory phase. Good air entry bilaterally Cardiovascular: Regular rate and rhythm. s1 and s2 normal No clicks, rubs, gallops, or murmurs. No pedal edema Abdomen: Abdomen is soft, nontender. Bowel sounds are present Musculoskeletal: Spontaneously moving all extremities Skin: warm, dry, intact. Neuro: Alert oriented x 3 normal cranial nerves, no focal deficits - Assessment and Plan (1) Left thalamic infarction Current Visit: Yes Status: Acute (2) GERD (gastroesophageal reflux disease) Current Visit: Yes Status: Chronic (3) COPD exacerbation Current Visit: Yes Status: Acute (4) CHF (congestive heart failure) Current Visit: Yes Status: Chronic (5) CAD (coronary artery disease) Current Visit: Yes Status: Chronic (6) Hyponatremia with decreased serum osmolality Current Visit: Yes Status: Acute (7) Hypertension Current Visit: Yes Status: Chronic (8) Tracheomalacia Current Visit: No Status: Chronic (9) Physical deconditioning Current Visit: Yes Status: Acute (10) NUBIA (obstructive sleep apnea) Current Visit: Yes Status: Chronic (11) Right leg weakness Current Visit: Yes Status: Acute (12) DVT prophylaxis Current Visit: Yes Status: Acute DVT Prophylaxis: Continue subcutaneous heparin - Summary of Assessment and Plan Summary of Assessment and Plan: Acute left thalamic stroke: Continue aspirin, Plavix. Not on statins per patient preference. Awaiting placement to skilled rehabilitation. Most likely patient will be discharged today. Acute COPD exacerbation with underlying tracheobronchomalacia: Continue albuterol inhalers as needed. Continue Symbicort and Spiriva. Patient refused oral prednisone. 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 Improved with fluid restriction. Chronic diastolic congestive heart failure: Not in acute exacerbation. Essential hypertension: Blood pressure remains elevated. We will increase lisinopril dosage to 5 mg daily. Anxiety disorder: Continue Xanax at bedtime and daily as needed Gastroesophageal reflux disease: Continue omeprazole and Gas-X. Hypothyroidism: Continue Tapazole. Patient will most likely be discharged to skilled rehabilitation later today. - Time Spent with Patient Total time spent is greater than 50% in coordination of care (as documented) at patient's floor/unit and/or counseling patient: Internal Medicine: Result - Labs CBC & Chem 7: 11/10/18 08:26 11/14/18 07:25 Labs: BMP 11/14/18 07:25 Sodium 134 L Potassium 3.9 Chloride 96 L Carbon Dioxide 33 H BUN 7 L Creatinine 0.57 L Glucose 95 Calcium 8.9 - ABG Interpretation ABG results: PT/INR, D-dimer PT 11.0 Seconds (9.4-12.1) 11/10/18 08:26 Consult Discharge Plan - Plan Referrals: Dmitri Pena MD [Partnered Physician] - 12/15/18 10:00 am Paula Casiano CNP [Primary Care Provider] - 11/18/18 1:30 pm () Willem Reid MD [Partnered Physician] - 12/08/18 10:00 am Davi Moscoso MD [Partnered Physician] - 11/24/18 11:00 am Prescriptions: ALPRAZolam [Xanax 0.25 MG Tablet] 0.25 mg PO DAILY PRN 7 Days #7 tablet PRN Reason: Anxiety ALPRAZolam [Xanax 0.5 MG Tablet] 0.5 mg PO HS 7 Days #7 tablet (2) GERD (gastroesophageal reflux disease) Qualifiers: Esophagitis presence: without esophagitis Qualified Code(s): K21.9 - Gastro- esophageal reflux disease without esophagitis (4) CHF (congestive heart failure) Qualifiers: Heart failure type: diastolic Heart failure chronicity: chronic Qualified Code(s): I50.32 - Chronic diastolic (congestive) heart failure (5) CAD (coronary artery disease) Qualifiers: Coronary Disease-Associated Artery/Lesion type: [place] artery [place] vs. transplanted heart: [place] heart Associated angina: without angina Qualified Code(s): I25.10 - Atherosclerotic heart disease of [place] coronary artery without angina pectoris (7) Hypertension Qualifiers: Hypertension type: essential hypertension Qualified Code(s): I10 - Essential (primary) hypertension
[2018-11-14] MEDS ORDERED: ALPRAZolam 0.25 MG TABLET PO ONE (14:05)
[2018-11-14] MEDS: Loratadine 10 MG TABLET PO SCH (16:49)
[2018-11-14] MEDS: Oxymetazoline Nasal SPRAY BOTTLE NS PRN (20:39)
[2018-11-14] MEDS: ALPRAZolam 0.25 MG TABLET PO SCH (21:36)
[2018-11-14] MEDS ORDERED: Preparation H Ointment 30 GM TUBE TP PRN (22:01)
[2018-11-15] MEDS: GuaiFENesin Liq 200 MG/10 ML UDC PO PRN ×2 (03:05→06:32)
[2018-11-15] MEDS: *HR* Heparin 5,000 UNIT/ML VIAL SQ SCH (06:26)
[2018-11-15 07:16] VITALS: BP 145/78
[2018-11-15] MEDS: Budesonide/Formoterol 160/4.5 1 PUFF INH IH SCH (08:49)
[2018-11-15] MEDS: Tiotropium 18 MCG inhalation IH SCH (08:49)
[2018-11-15] MEDS: Fluticasone Propionate Nasal 50 MCG/SPRAY BOTTLE NS SCH (09:10)
[2018-11-15] MEDS: Lactulose Oral Soln 20 GM/30 ML UDC PO SCH (09:10)
[2018-11-15] MEDS: Aspirin Enteric Coated 81 MG Tablet PO SCH (09:10)
[2018-11-15] MEDS: ALPRAZolam 0.25 MG TABLET PO PRN (09:10)
[2018-11-15] MEDS: Metoprolol XL (24 HR) Succ 25 MG TAB.ER.24H PO SCH (09:10)
[2018-11-15] MEDS: Isosorbide MONOnitrate (24 HR) 30 MG TAB.ER.24H PO SCH (09:10)
[2018-11-15] MEDS: methIMAzole 5 MG TABLET PO SCH (09:10)
[2018-11-15 09:11] LABS: BUN/Creatinine Ratio 15 (6-26); Blood Urea Nitrogen 9 mg/dL (8-23); Carbon Dioxide 33 mEq/L (23-29); Chloride 95 mEq/L (98-107); Glucose 102 mg/dL (70-105); Osmolality,Calculated 271 (280-300); Potassium 4.2 mEq/L (3.5-5.1); Sodium 131 mEq/L (136-145); eGFR For African Americans > 60 (> 60); eGFR For Non-African Americans > 60 (> 60)
--- NOTE | 2018-11-15 13:04 | Event Note ---
Date of Encounter: 11/15/18 Time of Encounter: 13:02 Patient was ready for discharge yesterday but stayed overnight in the hospital as her blood pressure was elevated yesterday evening. This morning her blood pressure is much better and patient was stable for discharge. She was therefore discharged to [facility]. I did not round on her today.
== END 2018-11-15 10:13 | DRG 65 ==
LOC: EMEROOARM 07:20 → 3BNU 07:20 → SUATTDRO 14:13 → 2ANU 11-11 13:01
PROVIDERS: ADMIT Student in an Organized Health Care Education/Training Program; ATTEND Internal Medicine

== ENCOUNTER 2019-04-12 16:25 | Inpatient (IN) ==
[2019-04-12] MEDS ORDERED: Albuterol 2.5 MG/3 ML NEBULIZER IH ONE (16:42)
[2019-04-12] MEDS ORDERED: *HR* LORazepam 2 MG/ML VIAL IVP ONE ×2 (16:43→21:00)
[2019-04-12] MEDS ORDERED: methylPREDNISolone 125 MG/2 ML VIAL IVP ONE (16:43)
[2019-04-12 17:29] LABS: Basophils # 0.1 K/mcL (0.0-0.2); Basophils % 0.7 %; Eosinophils # 0.2 K/mcL (0.0-0.6); Hematocrit 39.2 % (35.3-44.9); Hemoglobin 13.3 g/dL (11.5-15.4); Immature Granulocytes % 0.5 % (0-4); Lymphocytes # 1.2 K/mcL (0.6-4.6); Lymphocytes % 14.3 %; Mean Corpuscular HGB Conc 33.9 g/dL (31.6-35.5); Mean Corpuscular Hemoglobin 31.5 pg (28.0-33.3); Mean Corpuscular Volume 92.9 fL (83.0-100.0); Mean Platelet Volume 7.8 fL (9.4-12.4); Monocytes # 0.7 K/mcL (0.0-1.3); Monocytes % 8.6 %; Neutrophils # 5.9 K/mcL (1.6-8.9); Platelet Count 470 K/mcL (140-400); Red Blood Count 4.22 M/mcL (3.82-4.97); Segmented Neutrophils % 73.9 %
[2019-04-12 17:35] LABS: Alanine Aminotransferase 14 Units/L (7-52); Albumin/Globulin Ratio 1.4 (1.1-2.2); Alkaline Phosphatase 109 Units/L (34-104); Aspartate Amino Transferase 19 Units/L (13-39); BUN/Creatinine Ratio 16 (6-26); Bilirubin,Total 0.3 mg/dL (0.3-1.0); Blood Urea Nitrogen 12 mg/dL (8-23); Calcium 9.4 mg/dL (8.6-10.3); Carbon Dioxide 28 mEq/L (23-29); Chloride 94 mEq/L (98-107); Globulin 2.8 g/dL (2.4-3.5); Glucose 112 mg/dL (70-105); Osmolality,Calculated 269 (280-300); Potassium 4.6 mEq/L (3.5-5.1); Sodium 129 mEq/L (136-145); Total Protein 6.8 g/dL (6.4-8.9); Troponin I < 0.03 ng/mL (< 0.04); eGFR For African Americans > 60 (> 60); eGFR For Non-African Americans > 60 (> 60)
[2019-04-12] MEDS ORDERED: 0.9 % Sodium Chloride 1,000 ML IVC ONE (17:56)
[2019-04-12] MEDS ORDERED: Isovue-370 500 ML BOTTLE IVP ONE (18:58)
[2019-04-12] MEDS ORDERED: *HR* Labetalol 20 MG/4 ML SYRINGE IVP ONE (20:53)
[2019-04-12 21:14] LABS: Bilirubin,Urine Negative (Negative); Blood,Urine Negative (Negative); Clarity,Urine Clear (Clear); Color,Urine Yellow (Yellow); Glucose,Urine (UA) 100 mg/dL (Normal); Ketones,Urine Trace mg/dL (Negative); Leukocyte Esterase,Urine Negative (Negative); Nitrite,Urine Negative (Negative); Protein,Urine Negative (Neg-Trace); Specific Gravity,Urine 1.027 (1.010-1.025); Urobilinogen,Urine Normal (Normal)
[2019-04-12 22:54] LABS: ABG Base Excess 0 mEq/L (-2 to 3); ABG HCO3 31 mEq/L (21-27); ABG Oxygen Saturation 89 % (95-98); ABG PCO2 85 mmHg (35-45); ABG PH 7.17 pH Units (7.32-7.45); ABG PO2 74 mmHg (85-104); ABG TCO2 34 mEq/L (20-26); Blood Gas Modality BiLevel
[2019-04-13] MEDS ORDERED: Bisacodyl 10 MG RECTAL SUPPOSITORY RC PRN (00:15)
[2019-04-13] MEDS ORDERED: Nitroglycerin 0.4 MG TAB.SUBL SL PRN (00:15)
[2019-04-13] MEDS ORDERED: Simethicone 80 MG TAB.CHEW PO PRN (00:15)
[2019-04-13] MEDS ORDERED: Naloxone 0.4 MG/ML INJ IVP PRN (00:15)
[2019-04-13] MEDS ORDERED: Ipratropium/Albuterol Neb 3 ML IH PRN (00:20)
[2019-04-13 00:47] LABS: ABG Base Excess 1 mEq/L (-2 to 3); ABG HCO3 28 mEq/L (21-27); ABG Oxygen Saturation 100 % (95-98); ABG PCO2 51 mmHg (35-45); ABG PH 7.35 pH Units (7.32-7.45); ABG PO2 173 mmHg (85-104); ABG TCO2 30 mEq/L (20-26); Blood Gas Modality BiLevel
[2019-04-13] MEDS: Simethicone 80 MG TAB.CHEW PO SCH ×3 (01:46→10:32)
[2019-04-13 05:59] LABS: Basophils % 0.1 %; Hematocrit 38.8 % (35.3-44.9); Hemoglobin 12.7 g/dL (11.5-15.4); Immature Granulocytes % 0.4 % (0-4); Lymphocytes # 0.6 K/mcL (0.6-4.6); Lymphocytes % 7.9 %; Mean Corpuscular HGB Conc 32.7 g/dL (31.6-35.5); Mean Corpuscular Hemoglobin 31.7 pg (28.0-33.3); Mean Corpuscular Volume 96.8 fL (83.0-100.0); Mean Platelet Volume 7.7 fL (9.4-12.4); Monocytes # 0.3 K/mcL (0.0-1.3); Monocytes % 4.4 %; Neutrophils # 6.2 K/mcL (1.6-8.9); Platelet Count 417 K/mcL (140-400); Red Blood Count 4.01 M/mcL (3.82-4.97); Red Cell Distribution Width 12.8 % (11.5-14.5); Segmented Neutrophils % 87.2 %; White Blood Count 7.1 K/mcL (4.3-11.1)
[2019-04-13] MEDS: methylPREDNISolone 125 MG/2 ML VIAL IVP SCH ×3 (06:01→17:05)
[2019-04-13] MEDS: *HR* Heparin 5,000 UNIT/ML VIAL SQ SCH ×2 (06:02→17:05)
[2019-04-13] MEDS: Ondansetron 4 MG/2 ML VIAL IVP PRN (06:02)
[2019-04-13] MEDS: ALPRAZolam 0.25 MG TABLET PO PRN (06:02)
[2019-04-13 06:20] LABS: BUN/Creatinine Ratio 25 (6-26); Blood Urea Nitrogen 14 mg/dL (8-23); Calcium 9.6 mg/dL (8.6-10.3); Carbon Dioxide 28 mEq/L (23-29); Chloride 91 mEq/L (98-107); Glucose 126 mg/dL (70-105); Osmolality,Calculated 268 (280-300); Potassium 5.2 mEq/L (3.5-5.1); Sodium 128 mEq/L (136-145); eGFR For African Americans > 60 (> 60); eGFR For Non-African Americans > 60 (> 60)
[2019-04-13] MEDS: Budesonide/Formoterol 160/4.5 1 PUFF INH IH SCH (08:07)
[2019-04-13] MEDS: Tiotropium 18 MCG inhalation IH SCH (08:07)
[2019-04-13] MEDS ORDERED: Albuterol 2.5 MG/3 ML NEBULIZER IH PRN (08:24)
[2019-04-13] MEDS ORDERED: methIMAzole 5 MG TABLET PO SCH (09:00)
[2019-04-13] MEDS ORDERED: Metoprolol XL (24 HR) Succ 25 MG TAB.ER.24H PO SCH (09:00)
[2019-04-13] MEDS ORDERED: NON-FORMULARY MEDICATION 1 EACH EACH (Loratadine [Claritin] 10 MG) PO SCH (09:00)
[2019-04-13] MEDS ORDERED: Loratadine 10 MG TABLET PO SCH (09:00)
[2019-04-13] MEDS ORDERED: SELENIUM 200 MCG PO SCH (09:00)
[2019-04-13] MEDS: Aspirin Enteric Coated 81 MG Tablet PO SCH (10:00)
[2019-04-13] MEDS: Lactulose Oral Soln 20 GM/30 ML UDC PO SCH ×2 (10:01→10:30)
[2019-04-13] MEDS: Multivit/Ca/Min/Fe/FA 1 TAB TABLET PO SCH (10:01)
[2019-04-13] MEDS: GuaiFENesin Liq 200 MG/10 ML UDC PO PRN ×2 (10:25→20:33)
[2019-04-13 10:39] LABS: Triiodothyronine (T3) Free 2.74 pg/mL (2.50-3.90)
[2019-04-13] MEDS: Acetaminophen 325 MG TABLET PO PRN (16:16)
[2019-04-13] MEDS: Pantoprazole 40 MG VIAL IVP SCH (17:05)
[2019-04-13] MEDS: traZODone 50 MG TABLET PO SCH (20:04)
[2019-04-13] MEDS ORDERED: Cetirizine HCl 5 MG/5 ML UDC PO SCH (20:32)
[2019-04-13] MEDS: Loratadine 10 MG TABLET PO SCH (22:16)
[2019-04-13] MEDS: ALPRAZolam 0.5 MG TABLET PO SCH (22:17)
[2019-04-13] MEDS: Metoprolol XL (24 HR) Succ 25 MG TAB.ER.24H PO SCH (22:17)
[2019-04-14] MEDS: methylPREDNISolone 125 MG/2 ML VIAL IVP SCH ×4 (00:14→20:13)
[2019-04-14 01:38] LABS: Hematocrit 33.5 % (35.3-44.9); Hemoglobin 11.2 g/dL (11.5-15.4); Mean Corpuscular HGB Conc 33.4 g/dL (31.6-35.5); Mean Corpuscular Hemoglobin 31.8 pg (28.0-33.3); Mean Corpuscular Volume 95.2 fL (83.0-100.0); Mean Platelet Volume 7.8 fL (9.4-12.4); Platelet Count 384 K/mcL (140-400); Red Blood Count 3.52 M/mcL (3.82-4.97); Red Cell Distribution Width 12.7 % (11.5-14.5)
[2019-04-14 01:54] LABS: BUN/Creatinine Ratio 27 (6-26); Blood Urea Nitrogen 18 mg/dL (8-23); Carbon Dioxide 30 mEq/L (23-29); Chloride 92 mEq/L (98-107); Glucose 131 mg/dL (70-105); Osmolality,Calculated 270 (280-300); Potassium 4.9 mEq/L (3.5-5.1); Sodium 128 mEq/L (136-145); eGFR For African Americans > 60 (> 60); eGFR For Non-African Americans > 60 (> 60)
[2019-04-14] MEDS: *HR* Heparin 5,000 UNIT/ML VIAL SQ SCH ×2 (06:35→17:10)
[2019-04-14] MEDS: GuaiFENesin Liq 200 MG/10 ML UDC PO PRN ×3 (06:46→20:14)
[2019-04-14] MEDS: Budesonide/Formoterol 160/4.5 1 PUFF INH IH SCH (07:40)
[2019-04-14] MEDS: Tiotropium 18 MCG inhalation IH SCH (07:40)
[2019-04-14] MEDS: ALPRAZolam 0.25 MG TABLET PO PRN (08:45)
[2019-04-14] MEDS: Aspirin Enteric Coated 81 MG Tablet PO SCH (08:49)
[2019-04-14] MEDS: Pantoprazole 40 MG VIAL IVP SCH (08:50)
[2019-04-14] MEDS: Lactulose Oral Soln 20 GM/30 ML UDC PO SCH (08:50)
[2019-04-14] MEDS: methIMAzole 5 MG TABLET PO SCH (08:51)
[2019-04-14] MEDS: Multivit/Ca/Min/Fe/FA 1 TAB TABLET PO SCH (08:52)
[2019-04-14] MEDS: Metoprolol XL (24 HR) Succ 25 MG TAB.ER.24H PO SCH ×2 (08:52→20:14)
[2019-04-14] MEDS ORDERED: Pantoprazole 40 MG VIAL IVP SCH (09:00)
[2019-04-14] MEDS: Loratadine 10 MG TABLET PO SCH (09:00)
[2019-04-14] MEDS: Acetaminophen 325 MG TABLET PO PRN ×2 (12:35→20:30)
[2019-04-14] MEDS: Albuterol 2.5 MG/3 ML NEBULIZER IH SCH ×2 (14:54→20:19)
[2019-04-14] MEDS: Ondansetron 4 MG/2 ML VIAL IVP PRN (17:06)
[2019-04-14] MEDS: ALPRAZolam 0.5 MG TABLET PO SCH (20:13)
[2019-04-14] MEDS: traZODone 50 MG TABLET PO SCH (20:16)
[2019-04-15] MEDS: Albuterol 2.5 MG/3 ML NEBULIZER IH SCH ×4 (00:16→11:02)
[2019-04-15] MEDS: Ondansetron 4 MG/2 ML VIAL IVP PRN (01:42)
[2019-04-15] MEDS: ALPRAZolam 0.25 MG TABLET PO PRN (01:42)
[2019-04-15] MEDS: Acetaminophen 325 MG TABLET PO PRN ×3 (05:13→20:14)
[2019-04-15] MEDS: *HR* Heparin 5,000 UNIT/ML VIAL SQ SCH ×2 (05:13→17:44)
[2019-04-15 06:09] LABS: Hematocrit 39.3 % (35.3-44.9); Mean Corpuscular HGB Conc 33.6 g/dL (31.6-35.5); Mean Corpuscular Hemoglobin 31.2 pg (28.0-33.3); Mean Corpuscular Volume 92.9 fL (83.0-100.0); Mean Platelet Volume 7.8 fL (9.4-12.4); Platelet Count 466 K/mcL (140-400); Red Blood Count 4.23 M/mcL (3.82-4.97)
[2019-04-15 06:12] LABS: Hemoglobin 13.2 g/dL (11.5-15.4); White Blood Count 9.6 K/mcL (4.3-11.1)
[2019-04-15 06:34] LABS: Alkaline Phosphatase 90 Units/L (34-104); BUN/Creatinine Ratio 28 (6-26); Blood Urea Nitrogen 18 mg/dL (8-23); Calcium 9.5 mg/dL (8.6-10.3); Carbon Dioxide 32 mEq/L (23-29); Chloride 90 mEq/L (98-107); Gamma Glutamyl Transpeptidase 40 Units/L (7-64); Glucose 104 mg/dL (70-105); Osmolality,Calculated 274 (280-300); Potassium 4.9 mEq/L (3.5-5.1); Sodium 131 mEq/L (136-145); eGFR For African Americans > 60 (> 60); eGFR For Non-African Americans > 60 (> 60)
[2019-04-15] MEDS: Budesonide/Formoterol 160/4.5 1 PUFF INH IH SCH (07:17)
[2019-04-15] MEDS: Tiotropium 18 MCG inhalation IH SCH (07:17)
[2019-04-15] MEDS: Aspirin Enteric Coated 81 MG Tablet PO SCH (09:19)
[2019-04-15] MEDS: Lactulose Oral Soln 20 GM/30 ML UDC PO SCH (09:19)
[2019-04-15] MEDS: Loratadine 10 MG TABLET PO SCH (09:20)
[2019-04-15] MEDS: methylPREDNISolone 125 MG/2 ML VIAL IVP SCH ×2 (09:22→20:15)
[2019-04-15] MEDS: methIMAzole 5 MG TABLET PO SCH (09:23)
[2019-04-15] MEDS: Multivit/Ca/Min/Fe/FA 1 TAB TABLET PO SCH (09:23)
[2019-04-15] MEDS: Metoprolol XL (24 HR) Succ 25 MG TAB.ER.24H PO SCH ×2 (09:24→20:14)
[2019-04-15] MEDS: GuaiFENesin Liq 200 MG/10 ML UDC PO PRN ×2 (12:39→17:49)
[2019-04-15] MEDS: Simethicone 80 MG TAB.CHEW PO PRN (17:43)
[2019-04-15] MEDS: traZODone 50 MG TABLET PO SCH (20:05)
[2019-04-15] MEDS: ALPRAZolam 0.5 MG TABLET PO SCH (20:14)
[2019-04-15] MEDS ORDERED: ALPRAZolam 0.25 MG TABLET PO ONE (21:59)
[2019-04-15] MEDS: Budesonide/Formoterol 80/4.5 1 PUFF INH IH SCH (22:38)
[2019-04-16 05:23] LABS: Hemoglobin 12.7 g/dL (11.5-15.4); Mean Corpuscular HGB Conc 34.3 g/dL (31.6-35.5); Mean Corpuscular Hemoglobin 31.8 pg (28.0-33.3); Mean Corpuscular Volume 92.7 fL (83.0-100.0); Platelet Count 428 K/mcL (140-400); Red Blood Count 3.99 M/mcL (3.82-4.97); White Blood Count 7.2 K/mcL (4.3-11.1)
[2019-04-16 05:32] LABS: BUN/Creatinine Ratio 29 (6-26); Blood Urea Nitrogen 17 mg/dL (8-23); Carbon Dioxide 32 mEq/L (23-29); Chloride 92 mEq/L (98-107); Glucose 110 mg/dL (70-105); Magnesium 2.2 mg/dL (1.6-2.6); Osmolality,Calculated 276 (280-300); Phosphorous 3.5 mg/dL (2.7-4.5); Potassium 5.3 mEq/L (3.5-5.1); Sodium 132 mEq/L (136-145); eGFR For African Americans > 60 (> 60); eGFR For Non-African Americans > 60 (> 60)
[2019-04-16] MEDS: *HR* Heparin 5,000 UNIT/ML VIAL SQ SCH ×2 (06:58→17:03)
[2019-04-16] MEDS: ALPRAZolam 0.25 MG TABLET PO PRN (07:00)
[2019-04-16] MEDS: Budesonide/Formoterol 80/4.5 1 PUFF INH IH SCH ×2 (07:31→21:08)
[2019-04-16] MEDS: Tiotropium 18 MCG inhalation IH SCH (07:32)
[2019-04-16] MEDS: methIMAzole 5 MG TABLET PO SCH (09:17)
[2019-04-16] MEDS: Lactulose Oral Soln 20 GM/30 ML UDC PO SCH (09:17)
[2019-04-16] MEDS: Loratadine 10 MG TABLET PO SCH (09:17)
[2019-04-16] MEDS: Metoprolol XL (24 HR) Succ 25 MG TAB.ER.24H PO SCH ×2 (09:17→21:03)
[2019-04-16] MEDS: Aspirin Enteric Coated 81 MG Tablet PO SCH (09:17)
[2019-04-16] MEDS: Acetaminophen 325 MG TABLET PO PRN ×2 (09:18→17:06)
[2019-04-16] MEDS: methylPREDNISolone 125 MG/2 ML VIAL IVP SCH (09:18)
[2019-04-16] MEDS: Multivit/Ca/Min/Fe/FA 1 TAB TABLET PO SCH (09:18)
[2019-04-16] MEDS: GuaiFENesin Liq 200 MG/10 ML UDC PO PRN ×3 (09:18→21:02)
[2019-04-16] MEDS: ALPRAZolam 0.5 MG TABLET PO SCH (21:02)
[2019-04-16] MEDS: *HR* HYDROcodone/Acet 5/325 mg TABLET PO PRN (21:02)
[2019-04-16] MEDS: traZODone 50 MG TABLET PO SCH (21:03)
[2019-04-17] MEDS: ALPRAZolam 0.25 MG TABLET PO PRN (04:30)
[2019-04-17] MEDS: *HR* Heparin 5,000 UNIT/ML VIAL SQ SCH ×2 (06:17→18:52)
[2019-04-17] MEDS: Acetaminophen 325 MG TABLET PO PRN (06:17)
[2019-04-17] MEDS: Tiotropium 18 MCG inhalation IH SCH (07:42)
[2019-04-17] MEDS: Budesonide/Formoterol 80/4.5 1 PUFF INH IH SCH ×2 (07:42→19:57)
[2019-04-17] MEDS ORDERED: Propofol 500 MG/50 ML INFUS..BTL ONE (08:04)
[2019-04-17] MEDS ORDERED: *HR* Propofol 200 MG/20 ML VIAL IVP ONE (08:04)
[2019-04-17] MEDS ORDERED: Lidocaine -MPF 2% 2 ML VIAL ONE (08:04)
[2019-04-17] MEDS ORDERED: *HR* Midazolam HCl 2 MG/2 ML VIAL ONE (08:29)
[2019-04-17] MEDS ORDERED: Ondansetron 4 MG/2 ML VIAL ONE (08:54)
[2019-04-17] MEDS ORDERED: MethylPREDNISolone 40 MG/ML VIAL IVP SCH (09:00)
[2019-04-17] MEDS: Lactulose Oral Soln 20 GM/30 ML UDC PO SCH ×2 (10:44→13:54)
[2019-04-17] MEDS: Multivit/Ca/Min/Fe/FA 1 TAB TABLET PO SCH (10:45)
[2019-04-17] MEDS: methIMAzole 5 MG TABLET PO SCH (10:46)
[2019-04-17] MEDS: Loratadine 10 MG TABLET PO SCH (10:46)
[2019-04-17] MEDS: Aspirin Enteric Coated 81 MG Tablet PO SCH (10:46)
[2019-04-17] MEDS: Metoprolol XL (24 HR) Succ 25 MG TAB.ER.24H PO SCH ×2 (10:46→21:21)
[2019-04-17] MEDS: *HR* HYDROcodone/Acet 5/325 mg TABLET PO PRN ×2 (13:52→21:21)
[2019-04-17] MEDS: Simethicone 80 MG TAB.CHEW PO PRN (13:53)
[2019-04-17 16:03] LABS: BUN/Creatinine Ratio 19 (6-26); Blood Urea Nitrogen 14 mg/dL (8-23); Calcium 9.4 mg/dL (8.6-10.3); Carbon Dioxide 34 mEq/L (23-29); Chloride 89 mEq/L (98-107); Glucose 148 mg/dL (70-105); Magnesium 2.3 mg/dL (1.6-2.6); Osmolality,Calculated 277 (280-300); Phosphorous 3.1 mg/dL (2.7-4.5); Potassium 4.8 mEq/L (3.5-5.1); Sodium 132 mEq/L (136-145); eGFR For African Americans > 60 (> 60); eGFR For Non-African Americans > 60 (> 60)
[2019-04-17] MEDS: traZODone 50 MG TABLET PO SCH (21:18)
[2019-04-17] MEDS: ALPRAZolam 0.5 MG TABLET PO SCH (21:21)
[2019-04-17] MEDS: GuaiFENesin Liq 200 MG/10 ML UDC PO PRN (21:22)
[2019-04-18] MEDS: ALPRAZolam 0.25 MG TABLET PO PRN (05:07)
[2019-04-18] MEDS: *HR* Heparin 5,000 UNIT/ML VIAL SQ SCH ×2 (05:07→18:33)
[2019-04-18] MEDS: GuaiFENesin Liq 200 MG/10 ML UDC PO PRN ×2 (05:07→10:46)
[2019-04-18] MEDS: Budesonide/Formoterol 80/4.5 1 PUFF INH IH SCH ×2 (07:26→19:45)
[2019-04-18] MEDS: Lactulose Oral Soln 20 GM/30 ML UDC PO SCH (07:35)
[2019-04-18] MEDS: predniSONE 20 MG TABLET PO SCH (07:41)
[2019-04-18] MEDS: Aspirin Enteric Coated 81 MG Tablet PO SCH (07:41)
[2019-04-18] MEDS: Multivit/Ca/Min/Fe/FA 1 TAB TABLET PO SCH (07:42)
[2019-04-18] MEDS: Metoprolol XL (24 HR) Succ 25 MG TAB.ER.24H PO SCH ×2 (07:42→21:17)
[2019-04-18] MEDS: methIMAzole 5 MG TABLET PO SCH (07:42)
[2019-04-18] MEDS: Loratadine 10 MG TABLET PO SCH (07:42)
[2019-04-18] MEDS: Acetaminophen 325 MG TABLET PO PRN ×2 (07:46→14:04)
[2019-04-18] MEDS: Tiotropium 18 MCG inhalation IH SCH (09:32)
[2019-04-18] MEDS: Simethicone 80 MG TAB.CHEW PO PRN ×2 (18:38→21:08)
[2019-04-18] MEDS: *HR* HYDROcodone/Acet 5/325 mg TABLET PO PRN (18:39)
[2019-04-18] MEDS ORDERED: *HR* Metoprolol 5 MG/5 ML VIAL IVP ONE ×2 (20:39→20:42)
[2019-04-18] MEDS ORDERED: Morphine Sulfate 2 MG/ML SYRINGE IVP ONE (20:43)
[2019-04-18] MEDS: ALPRAZolam 0.5 MG TABLET PO SCH (20:54)
[2019-04-18] MEDS: traZODone 50 MG TABLET PO SCH (20:54)
[2019-04-19] MEDS: GuaiFENesin Liq 200 MG/10 ML UDC PO PRN ×3 (05:18→20:39)
[2019-04-19] MEDS: *HR* Heparin 5,000 UNIT/ML VIAL SQ SCH ×2 (05:18→17:13)
[2019-04-19] MEDS: Budesonide/Formoterol 80/4.5 1 PUFF INH IH SCH ×2 (07:48→20:12)
[2019-04-19] MEDS: Tiotropium 18 MCG inhalation IH SCH (07:49)
[2019-04-19] MEDS: Loratadine 10 MG TABLET PO SCH (08:18)
[2019-04-19] MEDS: Aspirin Enteric Coated 81 MG Tablet PO SCH (08:18)
[2019-04-19] MEDS: predniSONE 20 MG TABLET PO SCH (08:18)
[2019-04-19] MEDS: Lactulose Oral Soln 20 GM/30 ML UDC PO SCH ×2 (08:20→13:57)
[2019-04-19] MEDS: Metoprolol XL (24 HR) Succ 25 MG TAB.ER.24H PO SCH ×2 (08:20→20:39)
[2019-04-19] MEDS: methIMAzole 5 MG TABLET PO SCH (08:20)
[2019-04-19] MEDS: Acetaminophen 325 MG TABLET PO PRN ×2 (08:23→20:41)
[2019-04-19] MEDS: Simethicone 80 MG TAB.CHEW PO PRN (08:23)
[2019-04-19] MEDS: Multivit/Ca/Min/Fe/FA 1 TAB TABLET PO SCH (08:25)
[2019-04-19] MEDS: ALPRAZolam 0.25 MG TABLET PO PRN (13:57)
[2019-04-19] MEDS: traZODone 50 MG TABLET PO SCH (20:36)
[2019-04-19] MEDS: ALPRAZolam 0.5 MG TABLET PO SCH (20:39)
[2019-04-20] MEDS: GuaiFENesin Liq 200 MG/10 ML UDC PO PRN ×2 (06:17→11:06)
[2019-04-20] MEDS: *HR* Heparin 5,000 UNIT/ML VIAL SQ SCH (06:18)
[2019-04-20] MEDS: Acetaminophen 325 MG TABLET PO PRN ×2 (06:18→16:50)
[2019-04-20 06:55] VITALS: BP 128/76
[2019-04-20] MEDS: Budesonide/Formoterol 80/4.5 1 PUFF INH IH SCH (07:35)
[2019-04-20] MEDS: Tiotropium 18 MCG inhalation IH SCH (07:35)
[2019-04-20 08:43] LABS: BUN/Creatinine Ratio 16 (6-26); Blood Urea Nitrogen 10 mg/dL (8-23); Calcium 8.9 mg/dL (8.6-10.3); Carbon Dioxide 33 mEq/L (23-29); Chloride 92 mEq/L (98-107); Glucose 85 mg/dL (70-105); Osmolality,Calculated 270 (280-300); Sodium 131 mEq/L (136-145); eGFR For African Americans > 60 (> 60); eGFR For Non-African Americans > 60 (> 60)
[2019-04-20] MEDS: Simethicone 80 MG TAB.CHEW PO PRN (11:06)
[2019-04-20] MEDS: ALPRAZolam 0.25 MG TABLET PO PRN (11:06)
[2019-04-20] MEDS: Lactulose Oral Soln 20 GM/30 ML UDC PO SCH (11:07)
[2019-04-20] MEDS: predniSONE 20 MG TABLET PO SCH (11:07)
[2019-04-20] MEDS: Loratadine 10 MG TABLET PO SCH (11:07)
[2019-04-20] MEDS: Metoprolol XL (24 HR) Succ 25 MG TAB.ER.24H PO SCH (11:07)
[2019-04-20] MEDS: Multivit/Ca/Min/Fe/FA 1 TAB TABLET PO SCH (11:07)
[2019-04-20] MEDS: Aspirin Enteric Coated 81 MG Tablet PO SCH (11:08)
[2019-04-20] MEDS: methIMAzole 5 MG TABLET PO SCH (11:08)
== END 2019-04-20 17:00 | disposition home health service (06) | DRG 189 ==
LOC: EMEROOARM 16:25 → 2NNU 16:25 → SUATTDRO 23:30 → 2NNU 23:39 → SUATTDRO 04-13 14:44 → 2NENU 04-13 16:25
PROVIDERS: ADMIT Internal Medicine; ATTEND Internal Medicine
PROC: ENDOEDS (2019-04-17 11:05)

== ENCOUNTER 2019-05-28 00:56 | Inpatient (IN) ==
[2019-05-28] MEDS ORDERED: Ipratropium/Albuterol Neb 3 ML ONE (01:23)
[2019-05-28] MEDS ORDERED: Ipratropium/Albuterol Neb 3 ML IH ONE (01:30)
[2019-05-28] MEDS ORDERED: GuaiFENesin Liq 200 MG/10 ML UDC PO ONE (01:30)
[2019-05-28] MEDS ORDERED: Albuterol 2.5 MG/3 ML NEBULIZER ONE (01:31)
[2019-05-28] MEDS ORDERED: predniSONE 20 MG TABLET PO ONE (01:31)
[2019-05-28] MEDS ORDERED: *HR* LORazepam 2 MG/ML VIAL IVP ONE (01:58)
[2019-05-28] MEDS ORDERED: methylPREDNISolone 125 MG/2 ML VIAL IVP ONE (01:58)
[2019-05-28 01:59] LABS: Basophils % 0.4 %; Eosinophils % 0.3 %; Immature Granulocytes % 0.8 % (0-4); Red Cell Distribution Width 13.2 % (11.5-14.5)
[2019-05-28 02:01] LABS: Basophils # 0.1 K/mcL (0.0-0.2); Eosinophils # 0.1 K/mcL (0.0-0.6); Hematocrit 37.9 % (35.3-44.9); Hemoglobin 12.4 g/dL (11.5-15.4); Lymphocytes # 1.5 K/mcL (0.6-4.6); Lymphocytes % 5.6 %; Mean Corpuscular HGB Conc 32.7 g/dL (31.6-35.5); Mean Corpuscular Hemoglobin 31.9 pg (28.0-33.3); Mean Corpuscular Volume 97.4 fL (83.0-100.0); Mean Platelet Volume 7.8 fL (9.4-12.4); Monocytes # 2.4 K/mcL (0.0-1.3); Neutrophils # 22.6 K/mcL (1.6-8.9); Platelet Count 393 K/mcL (140-400); Red Blood Count 3.89 M/mcL (3.82-4.97); Segmented Neutrophils % 83.9 %; White Blood Count 26.9 K/mcL (4.3-11.1)
[2019-05-28 02:13] LABS: INR 0.9; Prothrombin Time 10.5 Seconds (9.4-12.1)
[2019-05-28 02:25] LABS: Platelet Estimate Normal (Normal)
[2019-05-28 02:27] LABS: Alanine Aminotransferase 13 Units/L (7-52); Albumin 3.9 g/dL (3.5-5.7); Albumin/Globulin Ratio 1.4 (1.1-2.2); Alkaline Phosphatase 102 Units/L (34-104); Aspartate Amino Transferase 16 Units/L (13-39); BUN/Creatinine Ratio 30 (6-26); Bilirubin,Total 0.5 mg/dL (0.3-1.0); Blood Urea Nitrogen 14 mg/dL (8-23); Calcium 9.4 mg/dL (8.6-10.3); Carbon Dioxide 32 mEq/L (23-29); Chloride 92 mEq/L (98-107); Globulin 2.8 g/dL (2.4-3.5); Glucose 125 mg/dL (70-105); Osmolality,Calculated 272 (280-300); Potassium 4.8 mEq/L (3.5-5.1); Sodium 130 mEq/L (136-145); Total Protein 6.7 g/dL (6.4-8.9); eGFR For African Americans > 60 (> 60); eGFR For Non-African Americans > 60 (> 60)
[2019-05-28] MEDS ORDERED: Doxycycline 100 MG in 0.9 % Sodium Chloride Mini Bag 100 ML IVPB ONE (02:28)
[2019-05-28 02:39] LABS: Troponin I 0.34 ng/mL (< 0.04)
[2019-05-28] MEDS ORDERED: Aspirin 325 MG TABLET PO ONE (02:54)
[2019-05-28] MEDS ORDERED: *HR* Heparin 5,000 UNIT/ML VIAL IVP PRN ×2 (02:55)
[2019-05-28] MEDS ORDERED: *HR* Heparin 5,000 UNIT/ML VIAL IVP ONE (02:55)
[2019-05-28] MEDS ORDERED: Isovue-370 500 ML BOTTLE IVP ONE (02:57)
[2019-05-28] MEDS ORDERED: Heparin 25,000 UNIT/250 ML D5W 25,000 UNIT/250 ML IV.SOLN IVC SCH (03:00)
[2019-05-28 03:27] LABS: INR 0.9; Prothrombin Time 10.5 Seconds (9.4-12.1)
[2019-05-28 04:12] LABS: Bilirubin,Urine Negative (Negative); Blood,Urine Negative (Negative); Clarity,Urine Clear (Clear); Color,Urine Yellow (Yellow); Glucose,Urine (UA) Normal (Normal); Ketones,Urine Trace mg/dL (Negative); Leukocyte Esterase,Urine Negative (Negative); Nitrite,Urine Negative (Negative); PH,Urine 6.5 pH Units (5.0-8.0); Protein,Urine Trace mg/dL (Neg-Trace); Specific Gravity,Urine > 1.030 (1.010-1.025); Urobilinogen,Urine Normal (Normal)
[2019-05-28] MEDS ORDERED: Naloxone 0.4 MG/ML INJ IVP PRN (05:18)
[2019-05-28] MEDS ORDERED: Ringers Solution, Lactated 1,000 ML IVC SCH (05:30)
[2019-05-28] MEDS ORDERED: levoFLOXacin 750 MG/150 ML 750 MG/150 ML BAG IVPB SCH (06:00)
[2019-05-28] MEDS ORDERED: Ipratropium/Albuterol Neb 3 ML IH SCH (08:00)
[2019-05-28] MEDS ORDERED: Nitroglycerin 0.4 MG TAB.SUBL SL PRN (08:09)
[2019-05-28] MEDS ORDERED: CLEAR EYES NATURAL TEARS 15 ML BOTTLE BOTH EYES PRN (08:09)
[2019-05-28] MEDS ORDERED: Bisacodyl 10 MG RECTAL SUPPOSITORY RC PRN (08:09)
[2019-05-28] MEDS ORDERED: Simethicone 80 MG TAB.CHEW PO PRN (08:09)
[2019-05-28] MEDS: Aspirin Enteric Coated 81 MG Tablet PO SCH (09:00)
[2019-05-28] MEDS ORDERED: predniSONE 20 MG TABLET PO SCH (09:00)
[2019-05-28] MEDS: Metoprolol XL (24 HR) Succ 25 MG TAB.ER.24H PO SCH ×2 (09:01→21:17)
[2019-05-28] MEDS ORDERED: MethylPREDNISolone 40 MG/ML VIAL IVP SCH (09:28)
[2019-05-28] MEDS: Budesonide/Formoterol 160/4.5 1 PUFF INH IH SCH ×2 (09:28→20:31)
[2019-05-28 10:23] LABS: ABG Base Excess 5 mEq/L (-2 to 3); ABG HCO3 36 mEq/L (21-27); ABG Oxygen Saturation 98 % (95-98); ABG PCO2 80 mmHg (35-45); ABG PH 7.25 pH Units (7.32-7.45); ABG PO2 120 mmHg (85-104); ABG TCO2 38 mEq/L (20-26)
[2019-05-28] MEDS: Azithromycin 500 MG in 0.9 % Sodium Chloride 250 ML IVPB SCH (10:32)
[2019-05-28] MEDS: MethylPREDNISolone 40 MG/ML VIAL IVP SCH ×2 (10:32→15:25)
[2019-05-28] MEDS: Piperacillin/Tazobactam 3.375 GM in 0.9 % Sodium Chloride Mini Bag 100 ML IVPB SCH ×2 (10:33→15:31)
[2019-05-28] MEDS: GuaiFENesin Liq 200 MG/10 ML UDC PO PRN ×2 (15:26→21:31)
[2019-05-28 19:56] LABS: Adenovirus Not Detected (Not Detect); Bordetella Pertussis Not Detected (Not Detect); Chlamydophila pneumoniae Not Detected (Not Detect); Coronavirus 229E Not Detected (Not Detect); Coronavirus HKU1 Not Detected (Not Detect); Coronavirus NL63 Not Detected (Not Detect); Coronavirus OC43 Not Detected (Not Detect); Human Metapneumovirus Not Detected (Not Detect); Human Rhinovirus/Enterovirus Not Detected (Not Detect); Influenza A Subtype 2009 H1 Not Detected (Not Detect); Influenza B Not Detected (Not Detect); Mycoplasma pneumoniae Not Detected (Not Detect); Parainfluenza Virus 1 Not Detected (Not Detect); Parainfluenza Virus 2 Not Detected (Not Detect); Parainfluenza Virus 3 Not Detected (Not Detect); Parainfluenza Virus 4 Not Detected (Not Detect); Respiratory Syncytial Virus Not Detected (Not Detect)
[2019-05-28] MEDS: ALPRAZolam 0.5 MG TABLET PO SCH (21:17)
[2019-05-28] MEDS: Acetaminophen 325 MG TABLET PO PRN (21:44)
[2019-05-29] MEDS: Piperacillin/Tazobactam 3.375 GM in 0.9 % Sodium Chloride Mini Bag 100 ML IVPB SCH ×3 (00:23→15:11)
[2019-05-29] MEDS: MethylPREDNISolone 40 MG/ML VIAL IVP SCH ×3 (00:23→18:36)
[2019-05-29 03:57] LABS: Basophils % 0.2 %; Immature Granulocytes % 0.7 % (0-4); Lymphocytes # 0.4 K/mcL (0.6-4.6); Lymphocytes % 2.6 %; Mean Corpuscular HGB Conc 32.5 g/dL (31.6-35.5); Mean Corpuscular Hemoglobin 31.7 pg (28.0-33.3); Mean Corpuscular Volume 97.6 fL (83.0-100.0); Monocytes # 0.6 K/mcL (0.0-1.3); Monocytes % 3.7 %; Neutrophils # 15.4 K/mcL (1.6-8.9); Platelet Count 340 K/mcL (140-400); Red Blood Count 3.28 M/mcL (3.82-4.97); Red Cell Distribution Width 13.2 % (11.5-14.5); Segmented Neutrophils % 92.8 %; White Blood Count 16.6 K/mcL (4.3-11.1)
[2019-05-29 04:02] LABS: Hemoglobin 10.4 g/dL (11.5-15.4)
[2019-05-29 04:13] LABS: BUN/Creatinine Ratio 32 (6-26); Blood Urea Nitrogen 20 mg/dL (8-23); Calcium 8.9 mg/dL (8.6-10.3); Carbon Dioxide 31 mEq/L (23-29); Chloride 90 mEq/L (98-107); Glucose 138 mg/dL (70-105); Osmolality,Calculated 271 (280-300); Potassium 4.6 mEq/L (3.5-5.1); Sodium 128 mEq/L (136-145); eGFR For African Americans > 60 (> 60); eGFR For Non-African Americans > 60 (> 60)
[2019-05-29] MEDS: Budesonide/Formoterol 160/4.5 1 PUFF INH IH SCH ×2 (08:08→20:12)
[2019-05-29] MEDS: Aspirin Enteric Coated 81 MG Tablet PO SCH (08:56)
[2019-05-29] MEDS: methIMAzole 5 MG TABLET PO SCH (08:56)
[2019-05-29] MEDS: Metoprolol XL (24 HR) Succ 25 MG TAB.ER.24H PO SCH ×2 (08:57→20:01)
[2019-05-29] MEDS: Acetaminophen 325 MG TABLET PO PRN ×2 (09:01→20:01)
[2019-05-29] MEDS: GuaiFENesin Liq 200 MG/10 ML UDC PO PRN ×2 (09:05→20:02)
[2019-05-29] MEDS: Azithromycin 500 MG in 0.9 % Sodium Chloride 250 ML IVPB SCH (11:59)
[2019-05-29] MEDS ORDERED: Lactulose Oral Soln 20 GM/30 ML UDC PO PRN (11:59)
[2019-05-29] MEDS: *HR* Heparin 5,000 UNIT/ML VIAL SQ SCH (18:36)
[2019-05-29] MEDS: ALPRAZolam 0.5 MG TABLET PO SCH (20:01)
[2019-05-30] MEDS: Piperacillin/Tazobactam 3.375 GM in 0.9 % Sodium Chloride Mini Bag 100 ML IVPB SCH ×2 (01:21→09:09)
[2019-05-30] MEDS: GuaiFENesin Liq 200 MG/10 ML UDC PO PRN ×4 (01:23→20:27)
[2019-05-30] MEDS: MethylPREDNISolone 40 MG/ML VIAL IVP SCH (05:29)
[2019-05-30] MEDS: *HR* Heparin 5,000 UNIT/ML VIAL SQ SCH ×2 (05:29→18:48)
[2019-05-30] MEDS: Tiotropium 18 MCG inhalation IH SCH (07:39)
[2019-05-30] MEDS: Budesonide/Formoterol 160/4.5 1 PUFF INH IH SCH ×2 (07:40→19:54)
[2019-05-30 07:42] LABS: Basophils % 0.1 %; Eosinophils % 0.1 %; Hematocrit 34.5 % (35.3-44.9); Hemoglobin 11.7 g/dL (11.5-15.4); Immature Granulocytes % 0.6 % (0-4); Lymphocytes # 0.5 K/mcL (0.6-4.6); Lymphocytes % 3.7 %; Mean Corpuscular HGB Conc 33.9 g/dL (31.6-35.5); Mean Corpuscular Hemoglobin 31.8 pg (28.0-33.3); Mean Corpuscular Volume 93.8 fL (83.0-100.0); Monocytes # 0.9 K/mcL (0.0-1.3); Monocytes % 6.6 %; Neutrophils # 12.7 K/mcL (1.6-8.9); Platelet Count 390 K/mcL (140-400); Red Blood Count 3.68 M/mcL (3.82-4.97); Red Cell Distribution Width 13.3 % (11.5-14.5); Segmented Neutrophils % 88.9 %; White Blood Count 14.3 K/mcL (4.3-11.1)
[2019-05-30 08:02] LABS: BUN/Creatinine Ratio 26 (6-26); Blood Urea Nitrogen 16 mg/dL (8-23); Calcium 9.2 mg/dL (8.6-10.3); Carbon Dioxide 33 mEq/L (23-29); Chloride 95 mEq/L (98-107); Glucose 102 mg/dL (70-105); Osmolality,Calculated 283 (280-300); Phosphorous 1.9 mg/dL (2.7-4.5); Potassium 4.3 mEq/L (3.5-5.1); Sodium 136 mEq/L (136-145); eGFR For African Americans > 60 (> 60); eGFR For Non-African Americans > 60 (> 60)
[2019-05-30] MEDS: Azithromycin 500 MG in 0.9 % Sodium Chloride 250 ML IVPB SCH (09:16)
[2019-05-30] MEDS: Acetaminophen 325 MG TABLET PO PRN ×2 (09:20→20:27)
[2019-05-30] MEDS: Furosemide 20 MG TABLET PO SCH ×2 (09:21→09:24)
[2019-05-30] MEDS: Aspirin Enteric Coated 81 MG Tablet PO SCH (09:21)
[2019-05-30] MEDS: methIMAzole 5 MG TABLET PO SCH (09:21)
[2019-05-30] MEDS: Multivit/Ca/Min/Fe/FA 1 TAB TABLET PO SCH (09:23)
[2019-05-30] MEDS: Metoprolol XL (24 HR) Succ 25 MG TAB.ER.24H PO SCH ×2 (09:23→20:27)
[2019-05-30] MEDS: ALPRAZolam 0.25 MG TABLET PO PRN (14:14)
[2019-05-30] MEDS: Oxymetazoline Nasal SPRAY BOTTLE NS PRN (20:26)
[2019-05-30] MEDS: ALPRAZolam 0.5 MG TABLET PO SCH (20:27)
[2019-05-30] MEDS ORDERED: Simethicone 80 MG TAB.CHEW PO PRN (20:42)
[2019-05-30] MEDS ORDERED: Simethicone 80 MG TAB.CHEW PO SCH (21:00)
[2019-05-31] MEDS: GuaiFENesin Liq 200 MG/10 ML UDC PO PRN ×4 (03:08→20:24)
[2019-05-31 04:57] LABS: Basophils % 0.2 %; Eosinophils # 0.2 K/mcL (0.0-0.6); Eosinophils % 1.4 %; Hemoglobin 11.1 g/dL (11.5-15.4); Immature Granulocytes % 0.6 % (0-4); Lymphocytes # 2.3 K/mcL (0.6-4.6); Lymphocytes % 20.1 %; Mean Corpuscular HGB Conc 33.6 g/dL (31.6-35.5); Mean Corpuscular Hemoglobin 31.8 pg (28.0-33.3); Mean Corpuscular Volume 94.6 fL (83.0-100.0); Mean Platelet Volume 8.2 fL (9.4-12.4); Monocytes # 1.5 K/mcL (0.0-1.3); Monocytes % 13.6 %; Neutrophils # 7.2 K/mcL (1.6-8.9); Platelet Count 405 K/mcL (140-400); Red Blood Count 3.49 M/mcL (3.82-4.97); Red Cell Distribution Width 13.4 % (11.5-14.5); Segmented Neutrophils % 64.1 %; White Blood Count 11.2 K/mcL (4.3-11.1)
[2019-05-31 05:15] LABS: BUN/Creatinine Ratio 24 (6-26); Blood Urea Nitrogen 13 mg/dL (8-23); Calcium 9.1 mg/dL (8.6-10.3); Carbon Dioxide 38 mEq/L (23-29); Chloride 94 mEq/L (98-107); Glucose 89 mg/dL (70-105); Magnesium 2.1 mg/dL (1.6-2.6); Osmolality,Calculated 284 (280-300); Phosphorous 2.5 mg/dL (2.7-4.5); Potassium 4.1 mEq/L (3.5-5.1); Sodium 137 mEq/L (136-145); eGFR For African Americans > 60 (> 60); eGFR For Non-African Americans > 60 (> 60)
[2019-05-31] MEDS: *HR* Heparin 5,000 UNIT/ML VIAL SQ SCH ×2 (06:32→17:30)
[2019-05-31] MEDS: Simethicone 80 MG TAB.CHEW PO PRN ×3 (07:37→20:28)
[2019-05-31] MEDS: Tiotropium 18 MCG inhalation IH SCH (07:53)
[2019-05-31] MEDS: Budesonide/Formoterol 160/4.5 1 PUFF INH IH SCH ×2 (07:53→19:29)
[2019-05-31] MEDS: methIMAzole 5 MG TABLET PO SCH (07:59)
[2019-05-31] MEDS: predniSONE 20 MG TABLET PO SCH (08:00)
[2019-05-31] MEDS: Multivit/Ca/Min/Fe/FA 1 TAB TABLET PO SCH (08:00)
[2019-05-31] MEDS: Aspirin Enteric Coated 81 MG Tablet PO SCH (08:00)
[2019-05-31] MEDS: Metoprolol XL (24 HR) Succ 25 MG TAB.ER.24H PO SCH ×2 (08:01→20:24)
[2019-05-31 08:10] LABS: Mycoplasma pneumoniae IgG 0.16 U/L (<=0.09)
[2019-05-31] MEDS ORDERED: Azithromycin 250 MG TABLET PO SCH (09:00)
[2019-05-31] MEDS ORDERED: levoFLOXacin 750 MG TABLET PO SCH (09:00)
[2019-05-31] MEDS: Acetaminophen 325 MG TABLET PO PRN ×2 (10:55→20:24)
[2019-05-31] MEDS ORDERED: Lactulose Oral Soln 20 GM/30 ML UDC PO PRN (12:59)
[2019-05-31] MEDS: ALPRAZolam 0.25 MG TABLET PO PRN (13:24)
[2019-05-31] MEDS: Oxymetazoline Nasal SPRAY BOTTLE NS PRN (13:25)
[2019-05-31] MEDS: ALPRAZolam 0.5 MG TABLET PO SCH (20:24)
[2019-06-01 02:03] LABS: Hematocrit 31.9 % (35.3-44.9); Hemoglobin 10.7 g/dL (11.5-15.4); Mean Corpuscular HGB Conc 33.5 g/dL (31.6-35.5); Mean Corpuscular Hemoglobin 31.5 pg (28.0-33.3); Mean Corpuscular Volume 93.8 fL (83.0-100.0); Mean Platelet Volume 8.2 fL (9.4-12.4); Platelet Count 382 K/mcL (140-400); Red Cell Distribution Width 13.2 % (11.5-14.5); White Blood Count 8.5 K/mcL (4.3-11.1)
[2019-06-01 02:25] LABS: BUN/Creatinine Ratio 19 (6-26); Blood Urea Nitrogen 10 mg/dL (8-23); Calcium 8.7 mg/dL (8.6-10.3); Carbon Dioxide 33 mEq/L (23-29); Chloride 96 mEq/L (98-107); Glucose 103 mg/dL (70-105); Osmolality,Calculated 279 (280-300); Potassium 3.7 mEq/L (3.5-5.1); Sodium 135 mEq/L (136-145); eGFR For African Americans > 60 (> 60); eGFR For Non-African Americans > 60 (> 60)
[2019-06-01] MEDS: GuaiFENesin Liq 200 MG/10 ML UDC PO PRN ×2 (04:53→10:03)
[2019-06-01] MEDS: *HR* Heparin 5,000 UNIT/ML VIAL SQ SCH (04:54)
[2019-06-01] MEDS: ALPRAZolam 0.25 MG TABLET PO PRN (05:00)
[2019-06-01] MEDS: Budesonide/Formoterol 160/4.5 1 PUFF INH IH SCH (07:36)
[2019-06-01] MEDS: Tiotropium 18 MCG inhalation IH SCH (07:37)
[2019-06-01] MEDS: Multivit/Ca/Min/Fe/FA 1 TAB TABLET PO SCH (07:54)
[2019-06-01] MEDS: predniSONE 20 MG TABLET PO SCH (07:54)
[2019-06-01] MEDS: Aspirin Enteric Coated 81 MG Tablet PO SCH (07:54)
[2019-06-01] MEDS: methIMAzole 5 MG TABLET PO SCH (07:54)
[2019-06-01] MEDS: Metoprolol XL (24 HR) Succ 25 MG TAB.ER.24H PO SCH (07:54)
[2019-06-01] MEDS: Acetaminophen 325 MG TABLET PO PRN (07:59)
[2019-06-01] MEDS ORDERED: Azithromycin 250 MG TABLET PO SCH (09:00)
[2019-06-01] MEDS ORDERED: Doxycycline 100 MG CAPSULE PO SCH (09:00)
[2019-06-01] MEDS: Simethicone 80 MG TAB.CHEW PO PRN (10:03)
[2019-06-01 10:09] VITALS: BP 147/87
== END 2019-06-01 13:36 | disposition home health service (06) | DRG 871 ==
LOC: 2NENU 00:56 → EMEROOARM 00:56 → SUATTDRO 05:18 → 2NENU 05:30
PROVIDERS: ADMIT Internal Medicine; ATTEND Family Medicine

== ENCOUNTER 2019-06-19 19:40 | Inpatient (IN) ==
[2019-06-19] MEDS ORDERED: 0.9 % Sodium Chloride 1,000 ML IVC SCH (19:45)
[2019-06-19] MEDS ORDERED: Albuterol 2.5 MG/3 ML NEBULIZER IH ONE (19:55)
[2019-06-19] MEDS ORDERED: methylPREDNISolone 125 MG/2 ML VIAL IVP ONE (19:56)
[2019-06-19 20:20] LABS: Basophils # 0.1 K/mcL (0.0-0.2); Basophils % 0.8 %; Eosinophils # 0.2 K/mcL (0.0-0.6); Eosinophils % 3.5 %; Hematocrit 36.5 % (35.3-44.9); Hemoglobin 11.9 g/dL (11.5-15.4); Immature Granulocytes % 0.5 % (0-4); Lymphocytes # 1.3 K/mcL (0.6-4.6); Lymphocytes % 19.8 %; Mean Corpuscular HGB Conc 32.6 g/dL (31.6-35.5); Mean Corpuscular Hemoglobin 30.4 pg (28.0-33.3); Mean Corpuscular Volume 93.1 fL (83.0-100.0); Monocytes # 0.9 K/mcL (0.0-1.3); Monocytes % 14.2 %; Platelet Count 586 K/mcL (140-400); Prothrombin Time 11.2 Seconds (9.4-12.1); Red Blood Count 3.92 M/mcL (3.82-4.97); Red Cell Distribution Width 12.9 % (11.5-14.5); Segmented Neutrophils % 61.2 %; White Blood Count 6.6 K/mcL (4.3-11.1)
[2019-06-19 20:23] LABS: Activated Partial Thrombo Time 42.8 Seconds (26.0-36.0)
[2019-06-19 20:37] LABS: Alanine Aminotransferase 10 Units/L (7-52); Albumin/Globulin Ratio 1.3 (1.1-2.2); Alkaline Phosphatase 107 Units/L (34-104); Aspartate Amino Transferase 13 Units/L (13-39); BUN/Creatinine Ratio 25 (6-26); Bilirubin,Direct 0.1 mg/dL (0.0-0.2); Bilirubin,Indirect 0.2 mg/dL (0.0-1.0); Bilirubin,Total 0.3 mg/dL (0.3-1.0); Blood Urea Nitrogen 13 mg/dL (8-23); Calcium 9.4 mg/dL (8.6-10.3); Carbon Dioxide 30 mEq/L (23-29); Chloride 89 mEq/L (98-107); Globulin 3.1 g/dL (2.4-3.5); Glucose 129 mg/dL (70-105); Osmolality,Calculated 262 (280-300); Potassium 4.4 mEq/L (3.5-5.1); Sodium 125 mEq/L (136-145); Total Protein 7.1 g/dL (6.4-8.9); Troponin I < 0.03 ng/mL (< 0.04); eGFR For African Americans > 60 (> 60); eGFR For Non-African Americans > 60 (> 60)
[2019-06-19] MEDS ORDERED: *HR* LORazepam 2 MG/ML VIAL IVP ONE (20:39)
[2019-06-19] MEDS ORDERED: Isovue-370 500 ML BOTTLE IVP ONE (21:21)
[2019-06-19] MEDS ORDERED: Ondansetron 4 MG/2 ML VIAL IVP PRN (22:41)
[2019-06-19] MEDS ORDERED: Naloxone 0.4 MG/ML INJ IVP PRN (22:41)
[2019-06-19] MEDS: Azithromycin 500 MG in 0.9 % Sodium Chloride 250 ML IVPB SCH (23:33)
[2019-06-20] MEDS: Albuterol 2.5 MG/3 ML NEBULIZER IH SCH ×7 (00:29→23:44)
[2019-06-20] MEDS: Budesonide/Formoterol 160/4.5 1 PUFF INH IH SCH ×3 (00:45→19:27)
[2019-06-20] MEDS ORDERED: CLEAR EYES NATURAL TEARS 15 ML BOTTLE BOTH EYES PRN (00:52)
[2019-06-20] MEDS ORDERED: 0.9 % Sodium Chloride 1,000 ML IVC SCH (01:15)
[2019-06-20] MEDS: Tiotropium 18 MCG inhalation IH SCH ×2 (01:55→07:49)
[2019-06-20] MEDS: ALPRAZolam 0.5 MG TABLET PO SCH ×2 (02:05→20:13)
[2019-06-20] MEDS: Acetaminophen 325 MG TABLET PO PRN ×3 (02:05→15:50)
[2019-06-20] MEDS: *HR* Heparin 5,000 UNIT/ML VIAL SQ SCH ×4 (02:13→20:13)
[2019-06-20 02:14] LABS: BUN/Creatinine Ratio 24 (6-26); Blood Urea Nitrogen 12 mg/dL (8-23); Calcium 9.1 mg/dL (8.6-10.3); Carbon Dioxide 28 mEq/L (23-29); Chloride 91 mEq/L (98-107); Glucose 151 mg/dL (70-105); Osmolality,Calculated 267 (280-300); Potassium 4.5 mEq/L (3.5-5.1); Sodium 127 mEq/L (136-145); eGFR For African Americans > 60 (> 60); eGFR For Non-African Americans > 60 (> 60)
[2019-06-20] MEDS ORDERED: Oxymetazoline Nasal SPRAY BOTTLE NS PRN (02:23)
[2019-06-20] MEDS: Metoprolol XL (24 HR) Succ 25 MG TAB.ER.24H PO SCH ×3 (02:49→20:13)
[2019-06-20] MEDS: GuaiFENesin Liq 200 MG/10 ML UDC PO PRN ×4 (02:49→20:18)
[2019-06-20] MEDS: MethylPREDNISolone 40 MG/ML VIAL IVP SCH ×4 (05:01→23:03)
[2019-06-20 05:29] LABS: Hematocrit 34.9 % (35.3-44.9); Hemoglobin 11.3 g/dL (11.5-15.4); Mean Corpuscular HGB Conc 32.4 g/dL (31.6-35.5); Mean Corpuscular Hemoglobin 30.1 pg (28.0-33.3); Mean Corpuscular Volume 93.1 fL (83.0-100.0); Platelet Count 529 K/mcL (140-400); Red Blood Count 3.75 M/mcL (3.82-4.97); Red Cell Distribution Width 12.8 % (11.5-14.5); White Blood Count 4.6 K/mcL (4.3-11.1)
[2019-06-20 05:48] LABS: BUN/Creatinine Ratio 20 (6-26); Blood Urea Nitrogen 11 mg/dL (8-23); Calcium 9.1 mg/dL (8.6-10.3); Carbon Dioxide 29 mEq/L (23-29); Chloride 93 mEq/L (98-107); Glucose 153 mg/dL (70-105); Osmolality,Calculated 268 (280-300); Potassium 4.7 mEq/L (3.5-5.1); Sodium 128 mEq/L (136-145); eGFR For African Americans > 60 (> 60); eGFR For Non-African Americans > 60 (> 60)
[2019-06-20 06:23] LABS: Adenovirus Not Detected (Not Detect); Bordetella Pertussis Not Detected (Not Detect); Chlamydophila pneumoniae Not Detected (Not Detect); Coronavirus 229E Not Detected (Not Detect); Coronavirus HKU1 Not Detected (Not Detect); Coronavirus NL63 Not Detected (Not Detect); Coronavirus OC43 Not Detected (Not Detect); Human Metapneumovirus Not Detected (Not Detect); Human Rhinovirus/Enterovirus Not Detected (Not Detect); Influenza A Subtype 2009 H1 Not Detected (Not Detect); Influenza B Not Detected (Not Detect); Mycoplasma pneumoniae Not Detected (Not Detect); Parainfluenza Virus 1 Not Detected (Not Detect); Parainfluenza Virus 2 Not Detected (Not Detect); Parainfluenza Virus 3 Not Detected (Not Detect); Parainfluenza Virus 4 Not Detected (Not Detect); Respiratory Syncytial Virus Not Detected (Not Detect)
[2019-06-20] MEDS ORDERED: Tiotropium 18 MCG inhalation IH SCH (08:00)
[2019-06-20] MEDS: Aspirin Enteric Coated 81 MG Tablet PO SCH (09:08)
[2019-06-20] MEDS: lisinopriL 10 MG TABLET PO SCH ×2 (09:08→09:14)
[2019-06-20] MEDS ORDERED: Lactulose Oral Soln 20 GM/30 ML UDC PO PRN (09:27)
[2019-06-20] MEDS ORDERED: Simethicone 80 MG TAB.CHEW PO PRN (09:27)
[2019-06-20] MEDS: methIMAzole 5 MG TABLET PO SCH (10:24)
[2019-06-20] MEDS: lisinopriL 5 MG TABLET PO SCH (18:38)
[2019-06-20] MEDS: Saline Nasal Spray 44 ML BOTTLE NS PRN (20:12)
[2019-06-20] MEDS: Oxymetazoline Nasal SPRAY BOTTLE NS PRN (20:23)
[2019-06-20] MEDS: Azithromycin 500 MG in 0.9 % Sodium Chloride 250 ML IVPB SCH (23:03)
[2019-06-21] MEDS: GuaiFENesin Liq 200 MG/10 ML UDC PO PRN ×5 (00:59→20:37)
[2019-06-21] MEDS: Acetaminophen 325 MG TABLET PO PRN ×3 (00:59→20:37)
[2019-06-21] MEDS ORDERED: *HR* LORazepam 2 MG/ML VIAL IVP ONE (03:09)
[2019-06-21] MEDS: Albuterol 2.5 MG/3 ML NEBULIZER IH SCH ×3 (03:23→13:32)
[2019-06-21] MEDS: Saline Nasal Spray 44 ML BOTTLE NS PRN ×3 (03:29→20:37)
[2019-06-21] MEDS: *HR* Heparin 5,000 UNIT/ML VIAL SQ SCH ×2 (06:02→14:17)
[2019-06-21] MEDS: MethylPREDNISolone 40 MG/ML VIAL IVP SCH ×2 (06:03→17:43)
[2019-06-21 06:53] LABS: BUN/Creatinine Ratio 19 (6-26); Blood Urea Nitrogen 11 mg/dL (8-23); Calcium 9.3 mg/dL (8.6-10.3); Carbon Dioxide 31 mEq/L (23-29); Chloride 94 mEq/L (98-107); Glucose 129 mg/dL (70-105); Osmolality,Calculated 273 (280-300); Potassium 4.8 mEq/L (3.5-5.1); Sodium 131 mEq/L (136-145); eGFR For African Americans > 60 (> 60); eGFR For Non-African Americans > 60 (> 60)
[2019-06-21] MEDS: Budesonide/Formoterol 160/4.5 1 PUFF INH IH SCH ×2 (07:26→20:09)
[2019-06-21] MEDS: Tiotropium 18 MCG inhalation IH SCH (07:27)
[2019-06-21] MEDS: Aspirin Enteric Coated 81 MG Tablet PO SCH (08:44)
[2019-06-21] MEDS: methIMAzole 5 MG TABLET PO SCH (08:48)
[2019-06-21] MEDS: lisinopriL 5 MG TABLET PO SCH (08:50)
[2019-06-21] MEDS: Metoprolol XL (24 HR) Succ 25 MG TAB.ER.24H PO SCH ×2 (08:51→20:36)
[2019-06-21 11:23] LABS: Bilirubin,Urine Negative (Negative); Blood,Urine Small (Negative); Clarity,Urine Clear (Clear); Color,Urine Yellow (Yellow); Glucose,Urine (UA) Normal (Normal); Ketones,Urine Negative (Negative); Leukocyte Esterase,Urine Negative (Negative); Nitrite,Urine Negative (Negative); PH,Urine 6.5 pH Units (5.0-8.0); Protein,Urine Negative (Neg-Trace); Specific Gravity,Urine 1.023 (1.010-1.025); Urobilinogen,Urine Normal (Normal)
[2019-06-21 11:26] LABS: Bacteria,Urine None Seen per hpf (None-Few); Hyaline Casts,Urine None Seen per lpf (None-Few); Squamous Epithelial Cell,Urine Many per lpf (None-Few); WBC,Urine 0-3 per hpf (0-3)
[2019-06-21] MEDS ORDERED: Albuterol 2.5 MG/3 ML NEBULIZER IH PRN (14:09)
[2019-06-21] MEDS: Simethicone 80 MG TAB.CHEW PO PRN (14:17)
[2019-06-21] MEDS: ALPRAZolam 0.25 MG TABLET PO PRN (14:17)
[2019-06-21] MEDS ORDERED: Albuterol 2.5 MG/3 ML NEBULIZER IH SCH (16:00)
[2019-06-21] MEDS: ALPRAZolam 0.5 MG TABLET PO SCH (20:37)
[2019-06-22] MEDS: *HR* Heparin 5,000 UNIT/ML VIAL SQ SCH ×4 (00:12→22:06)
[2019-06-22] MEDS: MethylPREDNISolone 40 MG/ML VIAL IVP SCH ×2 (00:13→09:43)
[2019-06-22 03:03] LABS: BUN/Creatinine Ratio 27 (6-26); Blood Urea Nitrogen 14 mg/dL (8-23); Calcium 8.8 mg/dL (8.6-10.3); Carbon Dioxide 30 mEq/L (23-29); Chloride 95 mEq/L (98-107); Glucose 127 mg/dL (70-105); Osmolality,Calculated 270 (280-300); Potassium 4.7 mEq/L (3.5-5.1); Sodium 129 mEq/L (136-145); eGFR For African Americans > 60 (> 60); eGFR For Non-African Americans > 60 (> 60)
[2019-06-22] MEDS: Saline Nasal Spray 44 ML BOTTLE NS PRN ×3 (04:50→13:14)
[2019-06-22] MEDS: GuaiFENesin Liq 200 MG/10 ML UDC PO PRN ×4 (05:45→22:06)
[2019-06-22] MEDS: Budesonide/Formoterol 160/4.5 1 PUFF INH IH SCH ×2 (07:56→20:34)
[2019-06-22] MEDS: Tiotropium 18 MCG inhalation IH SCH (07:57)
[2019-06-22] MEDS ORDERED: Lactulose Oral Soln 20 GM/30 ML UDC PO PRN (09:09)
[2019-06-22] MEDS: Metoprolol XL (24 HR) Succ 25 MG TAB.ER.24H PO SCH ×2 (09:44→20:47)
[2019-06-22] MEDS: Aspirin Enteric Coated 81 MG Tablet PO SCH (09:44)
[2019-06-22] MEDS: Azithromycin 250 MG TABLET PO SCH (09:44)
[2019-06-22] MEDS: methIMAzole 5 MG TABLET PO SCH (09:45)
[2019-06-22] MEDS: Simethicone 80 MG TAB.CHEW PO PRN ×2 (09:47→13:14)
[2019-06-22] MEDS: lisinopriL 5 MG TABLET PO SCH (09:47)
[2019-06-22] MEDS: Acetaminophen 325 MG TABLET PO PRN ×2 (09:47→17:08)
[2019-06-22] MEDS: ALPRAZolam 0.25 MG TABLET PO PRN (15:08)
[2019-06-22] MEDS ORDERED: MethylPREDNISolone 40 MG/ML VIAL IVP SCH (18:00)
[2019-06-22] MEDS: Oxymetazoline Nasal SPRAY BOTTLE NS PRN (19:38)
[2019-06-22] MEDS: ALPRAZolam 0.5 MG TABLET PO SCH (22:05)
[2019-06-23] MEDS: Acetaminophen 325 MG TABLET PO PRN ×2 (00:16→06:38)
[2019-06-23] MEDS ORDERED: DiphenhydraMINE CREAM 28.4 GM TUBE TP PRN (00:51)
[2019-06-23 02:09] LABS: Hematocrit 34.6 % (35.3-44.9); Hemoglobin 11.2 g/dL (11.5-15.4); Mean Corpuscular HGB Conc 32.4 g/dL (31.6-35.5); Mean Corpuscular Hemoglobin 30.5 pg (28.0-33.3); Mean Corpuscular Volume 94.3 fL (83.0-100.0); Mean Platelet Volume 8.2 fL (9.4-12.4); Platelet Count 545 K/mcL (140-400); Red Blood Count 3.67 M/mcL (3.82-4.97); Red Cell Distribution Width 12.9 % (11.5-14.5); White Blood Count 7.5 K/mcL (4.3-11.1)
[2019-06-23 02:31] LABS: BUN/Creatinine Ratio 25 (6-26); Blood Urea Nitrogen 16 mg/dL (8-23); Calcium 8.9 mg/dL (8.6-10.3); Carbon Dioxide 33 mEq/L (23-29); Chloride 93 mEq/L (98-107); Glucose 106 mg/dL (70-105); Magnesium 1.9 mg/dL (1.6-2.6); Osmolality,Calculated 272 (280-300); Potassium 4.5 mEq/L (3.5-5.1); Sodium 130 mEq/L (136-145); eGFR For African Americans > 60 (> 60); eGFR For Non-African Americans > 60 (> 60)
[2019-06-23] MEDS: Saline Nasal Spray 44 ML BOTTLE NS PRN ×2 (05:04→09:12)
[2019-06-23] MEDS: GuaiFENesin Liq 200 MG/10 ML UDC PO PRN ×2 (05:05→09:12)
[2019-06-23] MEDS: *HR* Heparin 5,000 UNIT/ML VIAL SQ SCH (06:39)
[2019-06-23] MEDS: ALPRAZolam 0.25 MG TABLET PO PRN (06:39)
[2019-06-23] MEDS: Budesonide/Formoterol 160/4.5 1 PUFF INH IH SCH (07:54)
[2019-06-23] MEDS: Tiotropium 18 MCG inhalation IH SCH (07:54)
[2019-06-23] MEDS ORDERED: predniSONE 20 MG TABLET PO SCH (09:00)
[2019-06-23] MEDS: Azithromycin 250 MG TABLET PO SCH (09:11)
[2019-06-23] MEDS: Aspirin Enteric Coated 81 MG Tablet PO SCH (09:11)
[2019-06-23] MEDS: lisinopriL 5 MG TABLET PO SCH (09:12)
[2019-06-23] MEDS: Metoprolol XL (24 HR) Succ 25 MG TAB.ER.24H PO SCH (09:12)
[2019-06-23] MEDS: methIMAzole 5 MG TABLET PO SCH (09:12)
[2019-06-23] MEDS: Simethicone 80 MG TAB.CHEW PO PRN (09:18)
[2019-06-23] MEDS ORDERED: Oxymetazoline Nasal SPRAY BOTTLE NS PRN (10:00)
[2019-06-23 10:50] VITALS: BP 153/87
== END 2019-06-23 12:23 | DRG 191 ==
LOC: 2NENU 19:40 → EMEROOARM 19:40 → 2NENU 22:43 → SUATTDRO 06-20 16:22
PROVIDERS: ADMIT Internal Medicine; ATTEND Internal Medicine

== ENCOUNTER 2019-09-07 07:35 | Observation (INO) ==
[2019-09-07 08:03] LABS: Basophils # 0.1 K/mcL (0.0-0.2); Basophils % 1.2 %; Eosinophils # 0.2 K/mcL (0.0-0.6); Eosinophils % 4.6 %; Hematocrit 37.6 % (35.3-44.9); Hemoglobin 11.8 g/dL (11.5-15.4); Immature Granulocytes % 0.2 % (0-4); Lymphocytes # 1.3 K/mcL (0.6-4.6); Lymphocytes % 25.8 %; Mean Corpuscular HGB Conc 31.4 g/dL (31.6-35.5); Mean Corpuscular Hemoglobin 29.1 pg (28.0-33.3); Mean Corpuscular Volume 92.6 fL (83.0-100.0); Mean Platelet Volume 7.9 fL (9.4-12.4); Monocytes # 0.7 K/mcL (0.0-1.3); Monocytes % 13.4 %; Neutrophils # 2.7 K/mcL (1.6-8.9); Platelet Count 436 K/mcL (140-400); Red Blood Count 4.06 M/mcL (3.82-4.97); Red Cell Distribution Width 13.6 % (11.5-14.5); Segmented Neutrophils % 54.8 %
[2019-09-07 08:05] LABS: INR 0.9; Prothrombin Time 10.2 Seconds (9.4-12.1)
[2019-09-07 08:08] LABS: Activated Partial Thrombo Time 42.3 Seconds (26.0-36.0)
[2019-09-07] MEDS ORDERED: methylPREDNISolone 125 MG/2 ML VIAL IVP ONE (09:16)
[2019-09-07 10:23] LABS: Alanine Aminotransferase 8 Units/L (7-52); Albumin/Globulin Ratio 1.6 (1.1-2.2); Alkaline Phosphatase 75 Units/L (34-104); Aspartate Amino Transferase 12 Units/L (13-39); BUN/Creatinine Ratio 22 (6-26); Bilirubin,Indirect 0.3 mg/dL (0.0-1.0); Bilirubin,Total 0.3 mg/dL (0.3-1.0); Blood Urea Nitrogen 9 mg/dL (8-23); C-Reactive Protein < 5 mg/L (Less than 10); Calcium 6.9 mg/dL (8.6-10.3); Carbon Dioxide 26 mEq/L (23-29); Chloride 106 mEq/L (98-107); Globulin 1.9 g/dL (2.4-3.5); Glucose 77 mg/dL (70-105); Lactate Dehydrogenase 97 Units/L (140-271); Magnesium 1.5 mg/dL (1.6-2.6); Osmolality,Calculated 283 (280-300); Potassium 3.3 mEq/L (3.5-5.1); Sodium 138 mEq/L (136-145); Total Protein 4.9 g/dL (6.4-8.9); Troponin I < 0.03 ng/mL (< 0.04); eGFR For African Americans > 60 (> 60); eGFR For Non-African Americans > 60 (> 60)
[2019-09-07 10:41] LABS: Ferritin 8 ng/mL (10-120)
[2019-09-07] MEDS ORDERED: Ondansetron 4 MG/2 ML VIAL IVP PRN (11:19)
[2019-09-07] MEDS ORDERED: Naloxone 0.4 MG/ML INJ IVP PRN (11:19)
[2019-09-07] MEDS ORDERED: GuaiFENesin Liq 200 MG/10 ML UDC PO STA (13:42)
[2019-09-07] MEDS ORDERED: Budesonide/Formoterol 160/4.5 1 PUFF INH IH STA (13:42)
[2019-09-07] MEDS ORDERED: ALPRAZolam 0.25 MG TABLET PO PRN ×2 (15:26→18:18)
[2019-09-07] MEDS ORDERED: ALPRAZolam 0.5 MG TABLET PO PRN (16:05)
[2019-09-07] MEDS: GuaiFENesin Liq 200 MG/10 ML UDC PO PRN (16:05)
[2019-09-07] MEDS: *HR* Heparin 5,000 UNIT/ML VIAL SQ SCH (16:51)
[2019-09-07] MEDS ORDERED: Simethicone 80 MG TAB.CHEW PO PRN (18:18)
[2019-09-07] MEDS ORDERED: Lactulose Oral Soln 20 GM/30 ML UDC PO PRN (18:18)
[2019-09-07] MEDS ORDERED: Bisacodyl 10 MG RECTAL SUPPOSITORY RC PRN (18:28)
[2019-09-07] MEDS: Doxycycline 100 MG CAPSULE PO SCH (20:09)
[2019-09-07] MEDS: Metoprolol XL (24 HR) Succ 25 MG TAB.ER.24H PO SCH (20:09)
[2019-09-07] MEDS ORDERED: ALPRAZolam 0.5 MG TABLET PO SCH (21:00)
[2019-09-07] MEDS: Budesonide/Formoterol 160/4.5 1 PUFF INH IH SCH (21:34)
[2019-09-08] MEDS: GuaiFENesin Liq 200 MG/10 ML UDC PO PRN ×2 (03:42→11:14)
[2019-09-08] MEDS: *HR* Heparin 5,000 UNIT/ML VIAL SQ SCH (05:41)
[2019-09-08 07:21] LABS: Basophils % 0.7 %; Eosinophils % 0.2 %; Hemoglobin 11.6 g/dL (11.5-15.4); Immature Granulocytes % 0.3 % (0-4); Lymphocytes # 1.4 K/mcL (0.6-4.6); Lymphocytes % 23.5 %; Mean Corpuscular HGB Conc 32.2 g/dL (31.6-35.5); Mean Corpuscular Hemoglobin 29.5 pg (28.0-33.3); Mean Corpuscular Volume 91.6 fL (83.0-100.0); Mean Platelet Volume 7.8 fL (9.4-12.4); Monocytes # 0.8 K/mcL (0.0-1.3); Neutrophils # 3.6 K/mcL (1.6-8.9); Platelet Count 406 K/mcL (140-400); Red Blood Count 3.93 M/mcL (3.82-4.97); Red Cell Distribution Width 13.5 % (11.5-14.5); Segmented Neutrophils % 61.3 %; White Blood Count 5.9 K/mcL (4.3-11.1)
[2019-09-08] MEDS: Budesonide/Formoterol 160/4.5 1 PUFF INH IH SCH (07:37)
[2019-09-08] MEDS ORDERED: Tiotropium 18 MCG inhalation IH SCH (08:00)
[2019-09-08 08:10] LABS: BUN/Creatinine Ratio 23 (6-26); Blood Urea Nitrogen 14 mg/dL (8-23); Calcium 9.5 mg/dL (8.6-10.3); Carbon Dioxide 31 mEq/L (23-29); Chloride 93 mEq/L (98-107); Glucose 87 mg/dL (70-105); Osmolality,Calculated 270 (280-300); Potassium 4.6 mEq/L (3.5-5.1); Sodium 130 mEq/L (136-145); eGFR For African Americans > 60 (> 60); eGFR For Non-African Americans > 60 (> 60)
[2019-09-08] MEDS: Doxycycline 100 MG CAPSULE PO SCH (08:30)
[2019-09-08] MEDS: Metoprolol XL (24 HR) Succ 25 MG TAB.ER.24H PO SCH (08:31)
[2019-09-08] MEDS ORDERED: predniSONE 20 MG TABLET PO SCH (09:00)
[2019-09-08] MEDS ORDERED: Aspirin Enteric Coated 81 MG Tablet PO SCH (09:00)
[2019-09-08] MEDS ORDERED: methIMAzole 5 MG TABLET PO SCH (09:00)
[2019-09-08] MEDS ORDERED: lisinopriL 5 MG TABLET PO SCH (09:00)
[2019-09-08] MEDS ORDERED: Fluticasone Propionate Nasal 50 MCG/SPRAY BOTTLE NS SCH (09:00)
[2019-09-08 13:34] VITALS: BP 128/77
== END 2019-09-08 14:31 | disposition home health service (06) ==
LOC: EMEROOARM 07:35 → 3BNU 07:35 → SUATTDRO 11:19 → 3BNU 16:31
PROVIDERS: ADMIT Internal Medicine; ATTEND Internal Medicine

== ENCOUNTER 2019-11-17 21:06 | Inpatient (IN) ==
[2019-11-17 23:33] LABS: INR 0.9; Prothrombin Time 10.4 Seconds (9.4-12.1)
[2019-11-17 23:38] LABS: Basophils # 0.1 K/mcL (0.0-0.2); Basophils % 0.7 %; Eosinophils # 0.2 K/mcL (0.0-0.6); Hematocrit 37.9 % (35.3-44.9); Hemoglobin 12.3 g/dL (11.5-15.4); Immature Granulocytes % 0.2 % (0-4); Lymphocytes # 1.1 K/mcL (0.6-4.6); Lymphocytes % 14.1 %; Mean Corpuscular HGB Conc 32.5 g/dL (31.6-35.5); Mean Corpuscular Volume 89.4 fL (83.0-100.0); Monocytes # 0.9 K/mcL (0.0-1.3); Monocytes % 10.8 %; Neutrophils # 5.8 K/mcL (1.6-8.9); Platelet Count 391 K/mcL (140-400); Red Blood Count 4.24 M/mcL (3.82-4.97); Red Cell Distribution Width 13.8 % (11.5-14.5); Segmented Neutrophils % 72.2 %; White Blood Count 8.1 K/mcL (4.3-11.1)
[2019-11-17 23:46] LABS: Alanine Aminotransferase 15 Units/L (7-52); Albumin 4.1 g/dL (3.5-5.7); Albumin/Globulin Ratio 1.6 (1.1-2.2); Alkaline Phosphatase 120 Units/L (34-104); Aspartate Amino Transferase 18 Units/L (13-39); BUN/Creatinine Ratio 21 (6-26); Bilirubin,Direct 0.1 mg/dL (0.0-0.2); Bilirubin,Indirect 0.2 mg/dL (0.0-1.0); Bilirubin,Total 0.3 mg/dL (0.3-1.0); Blood Urea Nitrogen 13 mg/dL (8-23); Calcium 9.3 mg/dL (8.6-10.3); Carbon Dioxide 31 mEq/L (23-29); Chloride 88 mEq/L (98-107); Globulin 2.6 g/dL (2.4-3.5); Glucose 110 mg/dL (70-105); Osmolality,Calculated 265 (280-300); Potassium 4.4 mEq/L (3.5-5.1); Sodium 127 mEq/L (136-145); Total Protein 6.7 g/dL (6.4-8.9); Troponin I < 0.03 ng/mL (< 0.04); eGFR For African Americans > 60 (> 60); eGFR For Non-African Americans > 60 (> 60)
[2019-11-18] MEDS ORDERED: Isovue-370 500 ML BOTTLE IVP ONE ×2 (00:06→11:08)
[2019-11-18 01:34] LABS: Bilirubin,Urine Negative (Negative); Blood,Urine Negative (Negative); Clarity,Urine Clear (Clear); Color,Urine Light-Yellow (Yellow); Glucose,Urine (UA) Normal (Normal); Ketones,Urine Negative (Negative); Leukocyte Esterase,Urine Negative (Negative); Nitrite,Urine Negative (Negative); Protein,Urine Negative (Neg-Trace); Specific Gravity,Urine 1.021 (1.010-1.025); Urobilinogen,Urine Normal (Normal)
[2019-11-18 01:35] LABS: VBG HCO3 35 mEq/L (21-27); VBG PCO2 71 mmHg (41-51); VBG PO2 47 mmHg (25-50)
[2019-11-18] MEDS ORDERED: Albuterol 2.5 MG/3 ML NEBULIZER IH ONE (02:28)
[2019-11-18] MEDS ORDERED: Albuterol 2.5 MG/3 ML NEBULIZER ONE (02:44)
[2019-11-18] MEDS ORDERED: Bisacodyl 10 MG RECTAL SUPPOSITORY RC PRN (04:42)
[2019-11-18] MEDS ORDERED: Simethicone 80 MG TAB.CHEW PO PRN (04:42)
[2019-11-18] MEDS ORDERED: Nitroglycerin 0.4 MG TAB.SUBL SL PRN (04:42)
[2019-11-18] MEDS ORDERED: ALPRAZolam 0.25 MG TABLET PO PRN (04:42)
[2019-11-18 05:44] LABS: Hematocrit 38.5 % (35.3-44.9); Hemoglobin 12.4 g/dL (11.5-15.4); Mean Corpuscular HGB Conc 32.2 g/dL (31.6-35.5); Mean Corpuscular Hemoglobin 28.9 pg (28.0-33.3); Mean Corpuscular Volume 89.7 fL (83.0-100.0); Mean Platelet Volume 7.7 fL (9.4-12.4); Platelet Count 386 K/mcL (140-400); Red Blood Count 4.29 M/mcL (3.82-4.97); Red Cell Distribution Width 13.7 % (11.5-14.5); White Blood Count 8.7 K/mcL (4.3-11.1)
[2019-11-18] MEDS: *HR* Heparin 5,000 UNIT/ML VIAL SQ SCH ×3 (05:46→21:02)
[2019-11-18] MEDS: Azithromycin 500 MG in 0.9 % Sodium Chloride 250 ML IVPB SCH (05:47)
[2019-11-18 05:49] LABS: VBG HCO3 34 mEq/L (21-27); VBG PCO2 63 mmHg (41-51); VBG PH 7.34 pH Units (7.32-7.42); VBG PO2 37 mmHg (25-50)
[2019-11-18] MEDS ORDERED: MethylPREDNISolone 40 MG/ML VIAL IVP SCH (06:00)
[2019-11-18 06:04] LABS: BUN/Creatinine Ratio 21 (6-26); Blood Urea Nitrogen 12 mg/dL (8-23); Calcium 9.2 mg/dL (8.6-10.3); Carbon Dioxide 35 mEq/L (23-29); Chloride 85 mEq/L (98-107); Glucose 103 mg/dL (70-105); Osmolality,Calculated 258 (280-300); Potassium 4.4 mEq/L (3.5-5.1); Sodium 124 mEq/L (136-145); eGFR For African Americans > 60 (> 60); eGFR For Non-African Americans > 60 (> 60)
[2019-11-18] MEDS ORDERED: Saline Nasal Spray 44 ML BOTTLE NS PRN (06:50)
[2019-11-18] MEDS: Ipratropium 1 PUFF INHALER IH SCH ×5 (07:19→23:34)
[2019-11-18] MEDS: amLODIPine 5 MG TABLET PO SCH (08:01)
[2019-11-18] MEDS: Metoprolol XL (24 HR) Succ 25 MG TAB.ER.24H PO SCH ×2 (08:01→21:06)
[2019-11-18] MEDS: Aspirin Enteric Coated 81 MG Tablet PO SCH (08:01)
[2019-11-18 09:07] LABS: Adenovirus Not Detected (Not Detect); Bordetella Pertussis Not Detected (Not Detect); Chlamydophila pneumoniae Not Detected (Not Detect); Coronavirus 229E Not Detected (Not Detect); Coronavirus HKU1 Not Detected (Not Detect); Coronavirus NL63 Not Detected (Not Detect); Coronavirus OC43 Not Detected (Not Detect); Human Metapneumovirus Not Detected (Not Detect); Human Rhinovirus/Enterovirus Not Detected (Not Detect); Influenza A Subtype 2009 H1 Not Detected (Not Detect); Influenza B Not Detected (Not Detect); Mycoplasma pneumoniae Not Detected (Not Detect); Parainfluenza Virus 1 Not Detected (Not Detect); Parainfluenza Virus 2 Not Detected (Not Detect); Parainfluenza Virus 3 Not Detected (Not Detect); Parainfluenza Virus 4 Not Detected (Not Detect); Respiratory Syncytial Virus Not Detected (Not Detect); SARS-CoV-2 Not Detected (Not Detect)
[2019-11-18] MEDS ORDERED: Lactulose Oral Soln 20 GM/30 ML UDC PO PRN (10:08)
[2019-11-18] MEDS ORDERED: [UNRECOGNIZED DRUG - REMARK] PO PRN (10:08)
[2019-11-18] MEDS: Budesonide/Formoterol 160/4.5 1 PUFF INH IH SCH ×2 (11:09→20:17)
[2019-11-18] MEDS: Oxymetazoline Nasal SPRAY BOTTLE NS PRN (12:29)
[2019-11-18] MEDS: methIMAzole 5 MG TABLET PO SCH (12:29)
[2019-11-18] MEDS: 0.9 % Sodium Chloride 1,000 ML IVC SCH (12:29)
[2019-11-18] MEDS: Simethicone 80 MG TAB.CHEW PO PRN (15:43)
[2019-11-18] MEDS: ALPRAZolam 0.5 MG TABLET PO SCH (21:06)
[2019-11-19] MEDS: 0.9 % Sodium Chloride 1,000 ML IVC SCH (01:04)
[2019-11-19] MEDS: Ipratropium 1 PUFF INHALER IH SCH ×7 (01:35→23:56)
[2019-11-19] MEDS: Azithromycin 500 MG in 0.9 % Sodium Chloride 250 ML IVPB SCH (05:14)
[2019-11-19] MEDS: *HR* Heparin 5,000 UNIT/ML VIAL SQ SCH ×3 (05:14→21:39)
[2019-11-19] MEDS ORDERED: Prochlorperazine 10 MG/2 ML VIAL IVP PRN (06:12)
[2019-11-19 06:40] LABS: Basophils % 0.6 %; Eosinophils % 0.8 %; Hematocrit 35.4 % (35.3-44.9); Hemoglobin 11.5 g/dL (11.5-15.4); Immature Granulocytes % 0.4 % (0-4); Lymphocytes # 1.4 K/mcL (0.6-4.6); Mean Corpuscular HGB Conc 32.5 g/dL (31.6-35.5); Mean Corpuscular Hemoglobin 29.4 pg (28.0-33.3); Mean Corpuscular Volume 90.5 fL (83.0-100.0); Mean Platelet Volume 8.1 fL (9.4-12.4); Monocytes # 0.9 K/mcL (0.0-1.3); Monocytes % 16.4 %; Neutrophils # 2.9 K/mcL (1.6-8.9); Platelet Count 355 K/mcL (140-400); Red Blood Count 3.91 M/mcL (3.82-4.97); Red Cell Distribution Width 13.7 % (11.5-14.5); Segmented Neutrophils % 54.8 %; White Blood Count 5.3 K/mcL (4.3-11.1)
[2019-11-19 07:00] LABS: BUN/Creatinine Ratio 23 (6-26); Blood Urea Nitrogen 12 mg/dL (8-23); Calcium 8.6 mg/dL (8.6-10.3); Carbon Dioxide 32 mEq/L (23-29); Chloride 90 mEq/L (98-107); Glucose 83 mg/dL (70-105); Osmolality,Calculated 263 (280-300); Sodium 127 mEq/L (136-145); eGFR For African Americans > 60 (> 60); eGFR For Non-African Americans > 60 (> 60)
[2019-11-19] MEDS: Budesonide/Formoterol 160/4.5 1 PUFF INH IH SCH ×2 (07:33→19:38)
[2019-11-19] MEDS: Tiotropium 18 MCG inhalation IH SCH (07:48)
[2019-11-19] MEDS: Multivit/Ca/Min/Fe/FA 1 TAB TABLET PO SCH (08:20)
[2019-11-19] MEDS: methIMAzole 5 MG TABLET PO SCH (08:20)
[2019-11-19] MEDS: Metoprolol XL (24 HR) Succ 25 MG TAB.ER.24H PO SCH ×2 (08:20→21:39)
[2019-11-19] MEDS: Aspirin Enteric Coated 81 MG Tablet PO SCH (08:20)
[2019-11-19] MEDS: amLODIPine 5 MG TABLET PO SCH (08:21)
[2019-11-19] MEDS: Fluticasone Propionate Nasal 50 MCG/SPRAY BOTTLE NS SCH (08:21)
[2019-11-19] MEDS ORDERED: predniSONE 20 MG TABLET PO SCH (09:00)
[2019-11-19] MEDS ORDERED: Loratadine 10 MG TABLET PO PRN (09:30)
[2019-11-19] MEDS: Oxymetazoline Nasal SPRAY BOTTLE NS PRN (18:06)
[2019-11-19] MEDS: Simethicone 80 MG TAB.CHEW PO PRN (21:39)
[2019-11-19] MEDS: ALPRAZolam 0.5 MG TABLET PO SCH (21:39)
[2019-11-20] MEDS: GuaiFENesin Liq 200 MG/10 ML UDC PO PRN ×3 (03:02→20:22)
[2019-11-20] MEDS: Ipratropium 1 PUFF INHALER IH SCH ×2 (03:05→07:56)
[2019-11-20] MEDS: *HR* Heparin 5,000 UNIT/ML VIAL SQ SCH ×3 (05:02→20:23)
[2019-11-20] MEDS: Azithromycin 500 MG in 0.9 % Sodium Chloride 250 ML IVPB SCH (05:02)
[2019-11-20 07:22] LABS: Basophils % 0.6 %; Eosinophils # 0.1 K/mcL (0.0-0.6); Eosinophils % 1.7 %; Hemoglobin 10.4 g/dL (11.5-15.4); Immature Granulocytes % 0.5 % (0-4); Lymphocytes # 1.2 K/mcL (0.6-4.6); Lymphocytes % 18.8 %; Mean Corpuscular HGB Conc 32.5 g/dL (31.6-35.5); Mean Corpuscular Hemoglobin 30.1 pg (28.0-33.3); Mean Corpuscular Volume 92.5 fL (83.0-100.0); Mean Platelet Volume 8.1 fL (9.4-12.4); Monocytes % 14.7 %; Neutrophils # 4.1 K/mcL (1.6-8.9); Platelet Count 322 K/mcL (140-400); Red Blood Count 3.46 M/mcL (3.82-4.97); Red Cell Distribution Width 13.9 % (11.5-14.5); Segmented Neutrophils % 63.7 %; White Blood Count 6.5 K/mcL (4.3-11.1)
[2019-11-20] MEDS: Tiotropium 18 MCG inhalation IH SCH (07:49)
[2019-11-20] MEDS: Budesonide/Formoterol 160/4.5 1 PUFF INH IH SCH ×2 (07:50→19:54)
[2019-11-20] MEDS: predniSONE 20 MG TABLET PO SCH (07:58)
[2019-11-20] MEDS: Aspirin Enteric Coated 81 MG Tablet PO SCH (07:59)
[2019-11-20] MEDS: methIMAzole 5 MG TABLET PO SCH (07:59)
[2019-11-20] MEDS: Multivit/Ca/Min/Fe/FA 1 TAB TABLET PO SCH (08:00)
[2019-11-20] MEDS: Metoprolol XL (24 HR) Succ 25 MG TAB.ER.24H PO SCH ×2 (08:00→20:22)
[2019-11-20] MEDS: amLODIPine 5 MG TABLET PO SCH (08:00)
[2019-11-20] MEDS: Fluticasone Propionate Nasal 50 MCG/SPRAY BOTTLE NS SCH (08:06)
[2019-11-20 08:09] LABS: BUN/Creatinine Ratio 26 (6-26); Blood Urea Nitrogen 12 mg/dL (8-23); Calcium 8.2 mg/dL (8.6-10.3); Carbon Dioxide 29 mEq/L (23-29); Chloride 92 mEq/L (98-107); Glucose 80 mg/dL (70-105); Osmolality,Calculated 265 (280-300); Sodium 128 mEq/L (136-145); eGFR For African Americans > 60 (> 60); eGFR For Non-African Americans > 60 (> 60)
[2019-11-20] MEDS ORDERED: Azithromycin 250 MG TABLET PO SCH (12:00)
[2019-11-20] MEDS: Simethicone 80 MG TAB.CHEW PO PRN ×2 (14:41→20:22)
[2019-11-20] MEDS: ALPRAZolam 0.5 MG TABLET PO SCH (21:16)
[2019-11-21] MEDS ORDERED: Prochlorperazine 10 MG/2 ML VIAL IVP PRN
[2019-11-21] MEDS ORDERED: *HR* Metoprolol 5 MG/5 ML VIAL IVP ONE (04:38)
[2019-11-21] MEDS: *HR* Heparin 5,000 UNIT/ML VIAL SQ SCH ×3 (05:01→20:42)
[2019-11-21] MEDS ORDERED: ALPRAZolam 0.25 MG TABLET PO SCH (05:45)
[2019-11-21] MEDS: amLODIPine 5 MG TABLET PO SCH (07:51)
[2019-11-21] MEDS: methIMAzole 5 MG TABLET PO SCH (07:51)
[2019-11-21] MEDS: Multivit/Ca/Min/Fe/FA 1 TAB TABLET PO SCH (07:51)
[2019-11-21] MEDS: Aspirin Enteric Coated 81 MG Tablet PO SCH (07:51)
[2019-11-21] MEDS: Metoprolol XL (24 HR) Succ 25 MG TAB.ER.24H PO SCH ×2 (07:52→20:32)
[2019-11-21] MEDS: Azithromycin 250 MG TABLET PO SCH (07:52)
[2019-11-21] MEDS: Fluticasone Propionate Nasal 50 MCG/SPRAY BOTTLE NS SCH (08:01)
[2019-11-21] MEDS: predniSONE 20 MG TABLET PO SCH (08:05)
[2019-11-21] MEDS: Tiotropium 18 MCG inhalation IH SCH (08:10)
[2019-11-21] MEDS: Budesonide/Formoterol 160/4.5 1 PUFF INH IH SCH ×2 (08:11→19:26)
[2019-11-21] MEDS: Simethicone 80 MG TAB.CHEW PO PRN ×2 (13:37→20:32)
[2019-11-21] MEDS: ALPRAZolam 0.5 MG TABLET PO SCH (21:40)
[2019-11-22] MEDS ORDERED: ALPRAZolam 0.25 MG TABLET PO PRN (01:06)
[2019-11-22] MEDS: *HR* Heparin 5,000 UNIT/ML VIAL SQ SCH (06:04)
[2019-11-22 07:18] LABS: BUN/Creatinine Ratio 17 (6-26); Blood Urea Nitrogen 8 mg/dL (8-23); Calcium 8.6 mg/dL (8.6-10.3); Carbon Dioxide 33 mEq/L (23-29); Chloride 95 mEq/L (98-107); Glucose 96 mg/dL (70-105); Osmolality,Calculated 274 (280-300); Potassium 4.1 mEq/L (3.5-5.1); Sodium 133 mEq/L (136-145); eGFR For African Americans > 60 (> 60); eGFR For Non-African Americans > 60 (> 60)
[2019-11-22] MEDS: Tiotropium 18 MCG inhalation IH SCH (07:19)
[2019-11-22] MEDS: Budesonide/Formoterol 160/4.5 1 PUFF INH IH SCH (07:20)
[2019-11-22] MEDS ORDERED: predniSONE 20 MG TABLET PO SCH (09:00)
[2019-11-22] MEDS: Azithromycin 250 MG TABLET PO SCH (09:59)
[2019-11-22] MEDS: methIMAzole 5 MG TABLET PO SCH (10:00)
[2019-11-22] MEDS: Multivit/Ca/Min/Fe/FA 1 TAB TABLET PO SCH (10:00)
[2019-11-22] MEDS: Metoprolol XL (24 HR) Succ 25 MG TAB.ER.24H PO SCH (10:03)
[2019-11-22] MEDS: amLODIPine 5 MG TABLET PO SCH (10:03)
[2019-11-22] MEDS: Aspirin Enteric Coated 81 MG Tablet PO SCH (10:03)
[2019-11-22] MEDS: Fluticasone Propionate Nasal 50 MCG/SPRAY BOTTLE NS SCH (10:06)
[2019-11-22] MEDS: Simethicone 80 MG TAB.CHEW PO PRN (10:08)
[2019-11-22 11:33] VITALS: BP 133/76
== END 2019-11-22 13:24 | disposition home health service (06) | DRG 190 ==
LOC: 2ANU 21:06 → EMEROOARM 21:06 → SUATTDRO 11-18 03:47 → 2ANU 11-18 04:30 → SUATTDRO 11-19 15:29
PROVIDERS: ADMIT Internal Medicine; ATTEND Internal Medicine

== ENCOUNTER 2020-01-01 12:36 | Inpatient (IN) ==
[2020-01-01] MEDS ORDERED: Isovue-370 500 ML BOTTLE IVP ONE (12:51)
[2020-01-01] MEDS ORDERED: Albuterol 2.5 MG/3 ML NEBULIZER IH ONE (12:52)
[2020-01-01 14:04] LABS: Basophils % 0.6 %; Eosinophils # 0.1 K/mcL (0.0-0.6); Eosinophils % 1.3 %; Hematocrit 34.8 % (35.3-44.9); Hemoglobin 10.8 g/dL (11.5-15.4); Immature Granulocytes % 0.4 % (0-4); Lymphocytes % 13.8 %; Mean Corpuscular Hemoglobin 29.3 pg (28.0-33.3); Mean Corpuscular Volume 94.6 fL (83.0-100.0); Mean Platelet Volume 7.9 fL (9.4-12.4); Monocytes # 0.7 K/mcL (0.0-1.3); Monocytes % 10.3 %; Neutrophils # 5.1 K/mcL (1.6-8.9); Platelet Count 375 K/mcL (140-400); Red Blood Count 3.68 M/mcL (3.82-4.97); Red Cell Distribution Width 13.8 % (11.5-14.5); Segmented Neutrophils % 73.6 %; White Blood Count 6.9 K/mcL (4.3-11.1)
[2020-01-01 14:23] LABS: BUN/Creatinine Ratio 20 (6-26); Blood Urea Nitrogen 11 mg/dL (8-23); Carbon Dioxide 34 mEq/L (23-29); Chloride 93 mEq/L (98-107); Glucose 104 mg/dL (70-105); Osmolality,Calculated 272 (280-300); Potassium 4.6 mEq/L (3.5-5.1); Sodium 131 mEq/L (136-145); Troponin I < 0.03 ng/mL (< 0.04); eGFR For African Americans > 60 (> 60); eGFR For Non-African Americans > 60 (> 60)
[2020-01-01] MEDS ORDERED: Ondansetron 4 MG/2 ML VIAL IVP PRN (16:20)
[2020-01-01] MEDS ORDERED: Naloxone 0.4 MG/ML INJ IVP PRN (16:20)
[2020-01-01] MEDS ORDERED: Simethicone 80 MG TAB.CHEW PO PRN (16:47)
[2020-01-01] MEDS ORDERED: Loratadine 10 MG TABLET PO PRN (16:47)
[2020-01-01] MEDS ORDERED: Lactulose Oral Soln 20 GM/30 ML UDC PO PRN (16:47)
[2020-01-01] MEDS ORDERED: Artificial Tears SOLN 15 ML BOTTLE BOTH EYES PRN (16:47)
[2020-01-01] MEDS ORDERED: Bisacodyl 10 MG RECTAL SUPPOSITORY RC PRN (16:47)
[2020-01-01] MEDS ORDERED: Nitroglycerin 0.4 MG TAB.SUBL SL PRN (16:47)
[2020-01-01] MEDS ORDERED: Oxymetazoline Nasal SPRAY BOTTLE NS PRN (16:47)
[2020-01-01 18:24] LABS: Adenovirus Not Detected (Not Detect); Coronavirus 229E Not Detected (Not Detect); Coronavirus HKU1 Not Detected (Not Detect); Coronavirus NL63 Not Detected (Not Detect); Coronavirus OC43 Not Detected (Not Detect); SARS-CoV-2 Not Detected (Not Detect)
[2020-01-01 18:25] LABS: Bordetella Pertussis Not Detected (Not Detect); Chlamydophila pneumoniae Not Detected (Not Detect); Human Metapneumovirus Not Detected (Not Detect); Human Rhinovirus/Enterovirus Not Detected (Not Detect); Influenza A Subtype 2009 H1 Not Detected (Not Detect); Influenza B Not Detected (Not Detect); Mycoplasma pneumoniae Not Detected (Not Detect); Parainfluenza Virus 1 Not Detected (Not Detect); Parainfluenza Virus 2 Not Detected (Not Detect); Parainfluenza Virus 3 Not Detected (Not Detect); Parainfluenza Virus 4 Not Detected (Not Detect); Respiratory Syncytial Virus Not Detected (Not Detect)
[2020-01-01] MEDS: ALPRAZolam 0.5 MG TABLET PO SCH (21:44)
[2020-01-01] MEDS: Metoprolol XL (24 HR) Succ 25 MG TAB.ER.24H PO SCH (21:45)
[2020-01-01] MEDS: Budesonide/Formoterol 160/4.5 1 PUFF INH IH SCH (23:01)
[2020-01-02 03:44] LABS: Basophils # 0.1 K/mcL (0.0-0.2); Basophils % 0.8 %; Eosinophils # 0.2 K/mcL (0.0-0.6); Eosinophils % 2.5 %; Hematocrit 30.5 % (35.3-44.9); Hemoglobin 9.8 g/dL (11.5-15.4); Immature Granulocytes % 0.3 % (0-4); Lymphocytes # 1.3 K/mcL (0.6-4.6); Lymphocytes % 17.7 %; Mean Corpuscular HGB Conc 32.1 g/dL (31.6-35.5); Mean Corpuscular Hemoglobin 30.2 pg (28.0-33.3); Mean Corpuscular Volume 93.8 fL (83.0-100.0); Monocytes # 0.8 K/mcL (0.0-1.3); Monocytes % 10.2 %; Neutrophils # 5.2 K/mcL (1.6-8.9); Platelet Count 326 K/mcL (140-400); Red Blood Count 3.25 M/mcL (3.82-4.97); Red Cell Distribution Width 13.8 % (11.5-14.5); Segmented Neutrophils % 68.5 %; White Blood Count 7.5 K/mcL (4.3-11.1)
[2020-01-02 03:46] LABS: BUN/Creatinine Ratio 21 (6-26); Blood Urea Nitrogen 10 mg/dL (8-23); Calcium 8.5 mg/dL (8.6-10.3); Carbon Dioxide 33 mEq/L (23-29); Chloride 95 mEq/L (98-107); Glucose 105 mg/dL (70-105); Magnesium 1.9 mg/dL (1.6-2.6); Osmolality,Calculated 273 (280-300); Potassium 4.1 mEq/L (3.5-5.1); Sodium 132 mEq/L (136-145); eGFR For African Americans > 60 (> 60); eGFR For Non-African Americans > 60 (> 60)
[2020-01-02] MEDS: *HR* Enoxaparin 40 MG/0.4 ML SYRINGE SQ SCH (05:54)
[2020-01-02] MEDS: Budesonide/Formoterol 160/4.5 1 PUFF INH IH SCH ×2 (07:41→19:44)
[2020-01-02] MEDS: Metoprolol XL (24 HR) Succ 25 MG TAB.ER.24H PO SCH ×2 (08:25→21:41)
[2020-01-02] MEDS: methIMAzole 5 MG TABLET PO SCH (08:25)
[2020-01-02] MEDS: Aspirin Enteric Coated 81 MG Tablet PO SCH (08:26)
[2020-01-02] MEDS: Tiotropium 18 MCG inhalation IH SCH (09:17)
[2020-01-02] MEDS ORDERED: levoFLOXacin 750 MG/150 ML 750 MG/150 ML BAG IVPB SCH (11:45)
[2020-01-02] MEDS ORDERED: predniSONE 20 MG TABLET PO SCH (11:45)
[2020-01-02] MEDS ORDERED: Doxycycline 100 MG CAPSULE PO SCH (12:00)
[2020-01-02] MEDS: Fluticasone Propionate Nasal 50 MCG/SPRAY BOTTLE NS SCH (12:56)
[2020-01-02] MEDS: ALPRAZolam 0.25 MG TABLET PO PRN (12:56)
[2020-01-02] MEDS ORDERED: Saline Nasal Spray 44 ML BOTTLE NS PRN (13:19)
[2020-01-02] MEDS: Isosorbide MONOnitrate (24 HR) 30 MG TAB.ER.24H PO SCH (14:36)
[2020-01-02] MEDS: LEVOFLOXACIN 750 MG/150 ML IVPB SCH (14:36)
[2020-01-02] MEDS ORDERED: Amoxicillin 500 MG CAPSULE PO SCH (15:00)
[2020-01-02] MEDS: Albuterol 2.5 MG/3 ML NEBULIZER IH PRN ×2 (16:06→19:45)
[2020-01-02] MEDS: GuaiFENesin Liq 200 MG/10 ML UDC PO PRN (21:40)
[2020-01-02] MEDS: ALPRAZolam 0.5 MG TABLET PO SCH (21:40)
[2020-01-03] MEDS: Albuterol 2.5 MG/3 ML NEBULIZER IH PRN ×3 (03:37→11:38)
[2020-01-03] MEDS: GuaiFENesin Liq 200 MG/10 ML UDC PO PRN ×2 (04:27→09:23)
[2020-01-03] MEDS: *HR* Enoxaparin 40 MG/0.4 ML SYRINGE SQ SCH (04:28)
[2020-01-03 06:20] LABS: BUN/Creatinine Ratio 20 (6-26); Blood Urea Nitrogen 10 mg/dL (8-23); Carbon Dioxide 31 mEq/L (23-29); Chloride 96 mEq/L (98-107); Glucose 116 mg/dL (70-105); Osmolality,Calculated 276 (280-300); Potassium 4.7 mEq/L (3.5-5.1); Sodium 133 mEq/L (136-145); eGFR For African Americans > 60 (> 60); eGFR For Non-African Americans > 60 (> 60)
[2020-01-03 06:55] LABS: Basophils % 0.3 %; Eosinophils % 0.1 %; Hematocrit 34.2 % (35.3-44.9); Immature Granulocytes % 0.5 % (0-4); Lymphocytes # 0.8 K/mcL (0.6-4.6); Lymphocytes % 10.7 %; Mean Corpuscular HGB Conc 32.2 g/dL (31.6-35.5); Mean Corpuscular Hemoglobin 29.9 pg (28.0-33.3); Mean Corpuscular Volume 92.9 fL (83.0-100.0); Monocytes # 0.6 K/mcL (0.0-1.3); Monocytes % 8.3 %; Platelet Count 355 K/mcL (140-400); Red Blood Count 3.68 M/mcL (3.82-4.97); Red Cell Distribution Width 13.7 % (11.5-14.5); Segmented Neutrophils % 80.1 %; White Blood Count 7.5 K/mcL (4.3-11.1)
[2020-01-03] MEDS: Budesonide/Formoterol 160/4.5 1 PUFF INH IH SCH (07:19)
[2020-01-03] MEDS: Tiotropium 18 MCG inhalation IH SCH (07:19)
[2020-01-03] MEDS ORDERED: Simethicone 80 MG TAB.CHEW PO PRN (07:27)
[2020-01-03] MEDS ORDERED: predniSONE 20 MG TABLET PO SCH (09:00)
[2020-01-03] MEDS: Fluticasone Propionate Nasal 50 MCG/SPRAY BOTTLE NS SCH (09:22)
[2020-01-03] MEDS: Isosorbide MONOnitrate (24 HR) 30 MG TAB.ER.24H PO SCH (09:24)
[2020-01-03] MEDS: methIMAzole 5 MG TABLET PO SCH (09:24)
[2020-01-03] MEDS: Aspirin Enteric Coated 81 MG Tablet PO SCH (09:24)
[2020-01-03] MEDS: Metoprolol XL (24 HR) Succ 25 MG TAB.ER.24H PO SCH (09:25)
[2020-01-03] MEDS: LEVOFLOXACIN 750 MG/150 ML IVPB SCH (11:34)
[2020-01-03 11:48] VITALS: BP 149/74
[2020-01-03] MEDS ORDERED: levoFLOXacin 750 MG TABLET PO ONE (12:00)
[2020-01-03] MEDS: ALPRAZolam 0.25 MG TABLET PO PRN (13:48)
== END 2020-01-03 13:48 | disposition home health service (06) | DRG 153 ==
LOC: 2ANU 12:36 → EMEROOARM 12:36 → SUATTDRO 18:40 → 2ANU 20:10
PROVIDERS: ADMIT Student in an Organized Health Care Education/Training Program; ATTEND Internal Medicine

== ENCOUNTER 2020-05-16 16:43 | Inpatient (IN) ==
[2020-05-16] MEDS ORDERED: Isovue-370 500 ML BOTTLE IVP ONE (17:10)
[2020-05-16] MEDS ORDERED: Morphine Sulfate 2 MG/ML SYRINGE IVP ONE ×2 (17:11→18:42)
[2020-05-16 17:20] LABS: Bilirubin,Urine Negative (Negative); Blood,Urine Negative (Negative); Clarity,Urine Clear (Clear); Color,Urine Yellow (Yellow); Glucose,Urine (UA) Normal (Normal); Ketones,Urine Negative (Negative); Leukocyte Esterase,Urine Negative (Negative); Nitrite,Urine Negative (Negative); PH,Urine 6.5 pH Units (5.0-8.0); Protein,Urine Trace mg/dL (Neg-Trace); Specific Gravity,Urine 1.025 (1.010-1.025); Urobilinogen,Urine Normal (Normal)
[2020-05-16 17:26] LABS: Basophils # 0.1 K/mcL (0.0-0.2); Basophils % 0.8 %; Eosinophils # 0.1 K/mcL (0.0-0.6); Eosinophils % 1.6 %; Hemoglobin 12.1 g/dL (11.5-15.4); Immature Granulocytes % 0.4 % (0-4); Lymphocytes # 1.2 K/mcL (0.6-4.6); Lymphocytes % 16.5 %; Mean Corpuscular HGB Conc 32.7 g/dL (31.6-35.5); Mean Corpuscular Hemoglobin 29.9 pg (28.0-33.3); Mean Corpuscular Volume 91.4 fL (83.0-100.0); Mean Platelet Volume 7.9 fL (9.4-12.4); Monocytes # 0.8 K/mcL (0.0-1.3); Monocytes % 10.8 %; Neutrophils # 5.3 K/mcL (1.6-8.9); Platelet Count 456 K/mcL (140-400); Red Blood Count 4.05 M/mcL (3.82-4.97); Red Cell Distribution Width 13.6 % (11.5-14.5); Segmented Neutrophils % 69.9 %; White Blood Count 7.5 K/mcL (4.3-11.1)
[2020-05-16 17:42] LABS: Alanine Aminotransferase 14 Units/L (7-52); Albumin 4.1 g/dL (3.5-5.7); Albumin/Globulin Ratio 1.5 (1.1-2.2); Alkaline Phosphatase 107 Units/L (34-104); Aspartate Amino Transferase 17 Units/L (13-39); BUN/Creatinine Ratio 20 (6-26); Bilirubin,Direct 0.1 mg/dL (0.0-0.2); Bilirubin,Indirect 0.2 mg/dL (0.0-1.0); Bilirubin,Total 0.3 mg/dL (0.3-1.0); Blood Urea Nitrogen 11 mg/dL (8-23); Calcium 9.3 mg/dL (8.6-10.3); Carbon Dioxide 32 mEq/L (23-29); Chloride 91 mEq/L (98-107); Globulin 2.8 g/dL (2.4-3.5); Glucose 119 mg/dL (70-105); Lipase 16 Units/L (11-82); Osmolality,Calculated 267 (280-300); Potassium 4.3 mEq/L (3.5-5.1); Sodium 128 mEq/L (136-145); Total Protein 6.9 g/dL (6.4-8.9); eGFR For African Americans > 60 (> 60); eGFR For Non-African Americans > 60 (> 60)
[2020-05-16] MEDS ORDERED: Ondansetron 4 MG/2 ML VIAL IVP ONE (18:42)
[2020-05-16] MEDS ORDERED: *HR* FentaNYL (PF) 100 MCG/2 ML VIAL IVP ONE (20:44)
[2020-05-16 21:23] LABS: Adenovirus Not Detected (Not Detect); Bordetella Pertussis Not Detected (Not Detect); Chlamydophila pneumoniae Not Detected (Not Detect); Coronavirus 229E Not Detected (Not Detect); Coronavirus HKU1 Not Detected (Not Detect); Coronavirus NL63 Not Detected (Not Detect); Coronavirus OC43 Not Detected (Not Detect); Human Metapneumovirus Not Detected (Not Detect); Human Rhinovirus/Enterovirus Not Detected (Not Detect); Influenza A Subtype 2009 H1 Not Detected (Not Detect); Influenza B Not Detected (Not Detect); Mycoplasma pneumoniae Not Detected (Not Detect); Parainfluenza Virus 1 Not Detected (Not Detect); Parainfluenza Virus 2 Not Detected (Not Detect); Parainfluenza Virus 3 Not Detected (Not Detect); Parainfluenza Virus 4 Not Detected (Not Detect); Respiratory Syncytial Virus Not Detected (Not Detect); SARS-CoV-2 Not Detected (Not Detect)
[2020-05-16] MEDS ORDERED: Budesonide/Formoterol 160/4.5 1 PUFF INH IH SCH (22:00)
[2020-05-16] MEDS ORDERED: Naloxone 0.4 MG/ML INJ IVP PRN (23:01)
[2020-05-16] MEDS ORDERED: Bisacodyl 10 MG RECTAL SUPPOSITORY RC PRN (23:22)
[2020-05-16] MEDS: Acetaminophen 325 MG TABLET PO PRN (23:41)
[2020-05-16] MEDS: 0.9 % Sodium Chloride 1,000 ML IVC SCH (23:43)
[2020-05-16] MEDS: Ondansetron ODT 4 MG TAB.RAPDIS SL PRN (23:43)
[2020-05-16] MEDS ORDERED: Artificial Tears SOLN 15 ML BOTTLE OP PRN (23:45)
[2020-05-17 00:34] LABS: Basophils % 0.4 %; Eosinophils % 0.1 %; Hematocrit 38.1 % (35.3-44.9); Hemoglobin 12.2 g/dL (11.5-15.4); Immature Granulocytes % 0.5 % (0-4); Lymphocytes # 0.6 K/mcL (0.6-4.6); Lymphocytes % 5.7 %; Mean Corpuscular Hemoglobin 29.1 pg (28.0-33.3); Mean Corpuscular Volume 90.9 fL (83.0-100.0); Mean Platelet Volume 7.8 fL (9.4-12.4); Monocytes # 0.6 K/mcL (0.0-1.3); Monocytes % 5.2 %; Neutrophils # 9.6 K/mcL (1.6-8.9); Platelet Count 416 K/mcL (140-400); Red Blood Count 4.19 M/mcL (3.82-4.97); Red Cell Distribution Width 13.7 % (11.5-14.5); Segmented Neutrophils % 88.1 %; White Blood Count 10.9 K/mcL (4.3-11.1)
[2020-05-17] MEDS: ALPRAZolam 0.5 MG TABLET PO SCH ×2 (00:43→22:19)
[2020-05-17] MEDS: GuaiFENesin Liq 200 MG/10 ML UDC PO PRN ×4 (00:43→19:47)
[2020-05-17] MEDS: Metoprolol XL (24 HR) Succ 25 MG TAB.ER.24H PO SCH ×3 (00:43→19:47)
[2020-05-17 01:05] LABS: BUN/Creatinine Ratio 21 (6-26); Blood Urea Nitrogen 11 mg/dL (8-23); Calcium 9.1 mg/dL (8.6-10.3); Carbon Dioxide 29 mEq/L (23-29); Chloride 91 mEq/L (98-107); Glucose 140 mg/dL (70-105); Magnesium 1.8 mg/dL (1.6-2.6); Osmolality,Calculated 266 (280-300); Phosphorous 3.3 mg/dL (2.7-4.5); Sodium 127 mEq/L (136-145); eGFR For African Americans > 60 (> 60); eGFR For Non-African Americans > 60 (> 60)
[2020-05-17 01:06] LABS: Troponin I < 0.03 ng/mL (< 0.04)
[2020-05-17 03:38] LABS: Chol/HDL Ratio 3.7 (0-4.9)
[2020-05-17] MEDS: Budesonide/Formoterol 160/4.5 1 PUFF INH IH SCH ×2 (07:50→20:22)
[2020-05-17] MEDS: 0.9 % Sodium Chloride 1,000 ML IVC SCH (08:29)
[2020-05-17] MEDS: Fluticasone Propionate Nasal 50 MCG/SPRAY BOTTLE NS SCH (08:34)
[2020-05-17] MEDS: *HR* Enoxaparin 30 MG/0.3 ML SYRINGE SQ SCH (08:34)
[2020-05-17] MEDS: Aspirin Enteric Coated 81 MG Tablet PO SCH (08:36)
[2020-05-17] MEDS: Loratadine 10 MG TABLET PO SCH (08:36)
[2020-05-17] MEDS: DICLOFENAC SODIUM APPL TP SCH ×4 (08:36→19:47)
[2020-05-17] MEDS ORDERED: Metoprolol XL (24 HR) Succ 25 MG TAB.ER.24H PO SCH (09:00)
[2020-05-17] MEDS: ALPRAZolam 0.25 MG TABLET PO PRN (10:11)
[2020-05-17] MEDS: Tiotropium 10 INH DOSE IH SCH (13:48)
[2020-05-17] MEDS: Ondansetron ODT 4 MG TAB.RAPDIS SL PRN (15:09)
[2020-05-17 18:45] LABS: BUN/Creatinine Ratio 13 (6-26); Blood Urea Nitrogen 7 mg/dL (8-23); Carbon Dioxide 32 mEq/L (23-29); Chloride 92 mEq/L (98-107); Glucose 106 mg/dL (70-105); Osmolality,Calculated 264 (280-300); Potassium 4.4 mEq/L (3.5-5.1); Sodium 128 mEq/L (136-145); eGFR For African Americans > 60 (> 60); eGFR For Non-African Americans > 60 (> 60)
[2020-05-17] MEDS: Acetaminophen 325 MG TABLET PO PRN (19:59)
[2020-05-17] MEDS ORDERED: ALPRAZolam 0.5 MG TABLET PO SCH (21:00)
[2020-05-17] MEDS: Simethicone 80 MG TAB.CHEW PO PRN (22:19)
[2020-05-18] MEDS: GuaiFENesin Liq 200 MG/10 ML UDC PO PRN ×3 (03:48→20:59)
[2020-05-18 06:01] LABS: Hematocrit 34.3 % (35.3-44.9); Mean Corpuscular HGB Conc 32.1 g/dL (31.6-35.5); Mean Corpuscular Hemoglobin 29.5 pg (28.0-33.3); Platelet Count 391 K/mcL (140-400); Red Blood Count 3.73 M/mcL (3.82-4.97); Red Cell Distribution Width 13.6 % (11.5-14.5); White Blood Count 6.7 K/mcL (4.3-11.1)
[2020-05-18 06:25] LABS: BUN/Creatinine Ratio 13 (6-26); Blood Urea Nitrogen 7 mg/dL (8-23); Calcium 8.8 mg/dL (8.6-10.3); Carbon Dioxide 31 mEq/L (23-29); Chloride 93 mEq/L (98-107); Glucose 89 mg/dL (70-105); Osmolality,Calculated 267 (280-300); Potassium 4.2 mEq/L (3.5-5.1); Sodium 130 mEq/L (136-145); eGFR For African Americans > 60 (> 60); eGFR For Non-African Americans > 60 (> 60)
[2020-05-18] MEDS: Budesonide/Formoterol 160/4.5 1 PUFF INH IH SCH ×2 (07:36→19:37)
[2020-05-18] MEDS: Aspirin Enteric Coated 81 MG Tablet PO SCH (08:44)
[2020-05-18] MEDS: Loratadine 10 MG TABLET PO SCH (08:44)
[2020-05-18] MEDS: Metoprolol XL (24 HR) Succ 25 MG TAB.ER.24H PO SCH ×2 (08:45→20:58)
[2020-05-18] MEDS: Fluticasone Propionate Nasal 50 MCG/SPRAY BOTTLE NS SCH (08:46)
[2020-05-18] MEDS: *HR* Enoxaparin 30 MG/0.3 ML SYRINGE SQ SCH (08:46)
[2020-05-18] MEDS: DICLOFENAC SODIUM APPL TP SCH ×2 (08:47→19:40)
[2020-05-18] MEDS: Acetaminophen 325 MG TABLET PO PRN ×2 (08:56→20:58)
[2020-05-18] MEDS ORDERED: 0.9 % Sodium Chloride 1,000 ML IVC SCH (09:30)
[2020-05-18] MEDS: Oxymetazoline Nasal SPRAY BOTTLE NS PRN (09:31)
[2020-05-18] MEDS: Simethicone 80 MG TAB.CHEW PO PRN (09:34)
[2020-05-18] MEDS: Ondansetron ODT 4 MG TAB.RAPDIS SL PRN (12:01)
[2020-05-18 12:58] LABS: Alanine Aminotransferase 13 Units/L (7-52); Albumin 3.5 g/dL (3.5-5.7); Albumin/Globulin Ratio 1.6 (1.1-2.2); Alkaline Phosphatase 85 Units/L (34-104); Aspartate Amino Transferase 21 Units/L (13-39); Bilirubin,Direct 0.1 mg/dL (0.0-0.2); Bilirubin,Indirect 0.3 mg/dL (0.0-1.0); Bilirubin,Total 0.4 mg/dL (0.3-1.0); Globulin 2.2 g/dL (2.4-3.5); Total Protein 5.7 g/dL (6.4-8.9)
[2020-05-18] MEDS: Tiotropium 10 INH DOSE IH SCH (19:41)
[2020-05-18] MEDS: ALPRAZolam 0.5 MG TABLET PO SCH (20:58)
[2020-05-18] MEDS ORDERED: Saline Nasal Spray 44 ML BOTTLE NS ONE (21:14)
[2020-05-19 02:22] LABS: Basophils % 0.5 %; Eosinophils # 0.2 K/mcL (0.0-0.6); Eosinophils % 2.6 %; Hematocrit 32.3 % (35.3-44.9); Hemoglobin 10.5 g/dL (11.5-15.4); Immature Granulocytes % 0.2 % (0-4); Lymphocytes # 1.3 K/mcL (0.6-4.6); Mean Corpuscular HGB Conc 32.5 g/dL (31.6-35.5); Mean Corpuscular Hemoglobin 29.8 pg (28.0-33.3); Mean Corpuscular Volume 91.8 fL (83.0-100.0); Mean Platelet Volume 8.1 fL (9.4-12.4); Monocytes # 0.9 K/mcL (0.0-1.3); Monocytes % 10.2 %; Platelet Count 418 K/mcL (140-400); Red Blood Count 3.52 M/mcL (3.82-4.97); Red Cell Distribution Width 13.7 % (11.5-14.5); Segmented Neutrophils % 71.5 %; White Blood Count 8.5 K/mcL (4.3-11.1)
[2020-05-19 02:34] LABS: Albumin 3.5 g/dL (3.5-5.7); Albumin/Globulin Ratio 1.5 (1.1-2.2); Bilirubin,Direct 0.1 mg/dL (0.0-0.2); Bilirubin,Indirect 0.2 mg/dL (0.0-1.0); Bilirubin,Total 0.3 mg/dL (0.3-1.0); Globulin 2.4 g/dL (2.4-3.5); Total Protein 5.9 g/dL (6.4-8.9)
[2020-05-19 02:35] LABS: BUN/Creatinine Ratio 12 (6-26); Blood Urea Nitrogen 7 mg/dL (8-23); Calcium 8.9 mg/dL (8.6-10.3); Carbon Dioxide 30 mEq/L (23-29); Chloride 96 mEq/L (98-107); Glucose 89 mg/dL (70-105); Osmolality,Calculated 271 (280-300); Potassium 4.1 mEq/L (3.5-5.1); Sodium 132 mEq/L (136-145); eGFR For African Americans > 60 (> 60); eGFR For Non-African Americans > 60 (> 60)
[2020-05-19] MEDS: GuaiFENesin Liq 200 MG/10 ML UDC PO PRN ×3 (05:30→14:36)
[2020-05-19] MEDS: Budesonide/Formoterol 160/4.5 1 PUFF INH IH SCH ×2 (07:30→20:25)
[2020-05-19] MEDS: Metoprolol XL (24 HR) Succ 25 MG TAB.ER.24H PO SCH ×2 (08:56→20:40)
[2020-05-19] MEDS: Aspirin Enteric Coated 81 MG Tablet PO SCH (08:56)
[2020-05-19] MEDS: Loratadine 10 MG TABLET PO SCH (08:56)
[2020-05-19] MEDS: Fluticasone Propionate Nasal 50 MCG/SPRAY BOTTLE NS SCH (08:57)
[2020-05-19] MEDS: Acetaminophen 325 MG TABLET PO PRN ×2 (10:15→21:55)
[2020-05-19] MEDS: Oxymetazoline Nasal SPRAY BOTTLE NS PRN (10:18)
[2020-05-19] MEDS: Saline Nasal Spray 44 ML BOTTLE NS PRN ×2 (11:25→20:42)
[2020-05-19] MEDS: ALPRAZolam 0.25 MG TABLET PO PRN (15:45)
[2020-05-19] MEDS: Tiotropium 10 INH DOSE IH SCH ×2 (15:47→16:04)
[2020-05-19] MEDS: ALPRAZolam 0.5 MG TABLET PO SCH (20:40)
[2020-05-20 06:10] LABS: Basophils # 0.1 K/mcL (0.0-0.2); Basophils % 0.8 %; Eosinophils # 0.3 K/mcL (0.0-0.6); Eosinophils % 3.7 %; Hematocrit 32.1 % (35.3-44.9); Hemoglobin 10.4 g/dL (11.5-15.4); Immature Granulocytes % 0.3 % (0-4); Lymphocytes # 1.3 K/mcL (0.6-4.6); Lymphocytes % 18.2 %; Mean Corpuscular HGB Conc 32.4 g/dL (31.6-35.5); Mean Corpuscular Hemoglobin 29.6 pg (28.0-33.3); Mean Corpuscular Volume 91.5 fL (83.0-100.0); Monocytes # 0.9 K/mcL (0.0-1.3); Monocytes % 12.4 %; Neutrophils # 4.6 K/mcL (1.6-8.9); Platelet Count 398 K/mcL (140-400); Red Blood Count 3.51 M/mcL (3.82-4.97); Red Cell Distribution Width 13.8 % (11.5-14.5); Segmented Neutrophils % 64.6 %; White Blood Count 7.1 K/mcL (4.3-11.1)
[2020-05-20 06:31] LABS: BUN/Creatinine Ratio 12 (6-26); Blood Urea Nitrogen 6 mg/dL (8-23); Calcium 8.9 mg/dL (8.6-10.3); Carbon Dioxide 33 mEq/L (23-29); Chloride 98 mEq/L (98-107); Glucose 96 mg/dL (70-105); Osmolality,Calculated 279 (280-300); Potassium 4.2 mEq/L (3.5-5.1); Sodium 136 mEq/L (136-145); eGFR For African Americans > 60 (> 60); eGFR For Non-African Americans > 60 (> 60)
[2020-05-20] MEDS ORDERED: Lidocaine -MPF 2% 2 ML VIAL ONE (07:25)
[2020-05-20] MEDS ORDERED: *HR* Propofol 200 MG/20 ML VIAL IVP ONE (07:25)
[2020-05-20] MEDS: Metoprolol XL (24 HR) Succ 25 MG TAB.ER.24H PO SCH ×2 (07:46→21:13)
[2020-05-20] MEDS: Loratadine 10 MG TABLET PO SCH (07:47)
[2020-05-20] MEDS: Oxymetazoline Nasal SPRAY BOTTLE NS PRN ×2 (07:49→21:18)
[2020-05-20] MEDS: Aspirin Enteric Coated 81 MG Tablet PO SCH (07:49)
[2020-05-20] MEDS: Fluticasone Propionate Nasal 50 MCG/SPRAY BOTTLE NS SCH (07:50)
[2020-05-20] MEDS: Budesonide/Formoterol 160/4.5 1 PUFF INH IH SCH ×2 (08:12→20:53)
[2020-05-20] MEDS ORDERED: *HR* Midazolam HCl 2 MG/2 ML VIAL ONE (09:09)
[2020-05-20] MEDS: Acetaminophen 325 MG TABLET PO PRN ×2 (11:51→21:16)
[2020-05-20] MEDS: Tiotropium 10 INH DOSE IH SCH (14:44)
[2020-05-20] MEDS: Simethicone 80 MG TAB.CHEW PO PRN (16:10)
[2020-05-20] MEDS: GuaiFENesin Liq 200 MG/10 ML UDC PO PRN (21:13)
[2020-05-20] MEDS: ALPRAZolam 0.5 MG TABLET PO SCH (21:13)
[2020-05-21] MEDS: GuaiFENesin Liq 200 MG/10 ML UDC PO PRN ×4 (03:59→21:13)
[2020-05-21] MEDS: Acetaminophen 325 MG TABLET PO PRN ×3 (04:02→21:12)
[2020-05-21 06:06] LABS: Basophils # 0.1 K/mcL (0.0-0.2); Basophils % 0.4 %; Eosinophils # 0.1 K/mcL (0.0-0.6); Eosinophils % 0.6 %; Hematocrit 33.4 % (35.3-44.9); Hemoglobin 10.7 g/dL (11.5-15.4); Immature Granulocytes % 0.6 % (0-4); Mean Corpuscular Hemoglobin 29.6 pg (28.0-33.3); Mean Corpuscular Volume 92.5 fL (83.0-100.0); Mean Platelet Volume 8.3 fL (9.4-12.4); Monocytes # 1.1 K/mcL (0.0-1.3); Monocytes % 5.6 %; Neutrophils # 17.6 K/mcL (1.6-8.9); Platelet Count 400 K/mcL (140-400); Red Blood Count 3.61 M/mcL (3.82-4.97); Segmented Neutrophils % 87.8 %
[2020-05-21 06:20] LABS: BUN/Creatinine Ratio 19 (6-26); Blood Urea Nitrogen 13 mg/dL (8-23); Calcium 8.8 mg/dL (8.6-10.3); Carbon Dioxide 32 mEq/L (23-29); Chloride 94 mEq/L (98-107); Glucose 105 mg/dL (70-105); Osmolality,Calculated 272 (280-300); Potassium 4.4 mEq/L (3.5-5.1); Sodium 131 mEq/L (136-145); eGFR For African Americans > 60 (> 60); eGFR For Non-African Americans > 60 (> 60)
[2020-05-21] MEDS: Budesonide/Formoterol 160/4.5 1 PUFF INH IH SCH ×2 (07:23→20:24)
[2020-05-21] MEDS: Saline Nasal Spray 44 ML BOTTLE NS PRN ×2 (09:34→15:58)
[2020-05-21] MEDS: Loratadine 10 MG TABLET PO SCH (09:34)
[2020-05-21] MEDS: Fluticasone Propionate Nasal 50 MCG/SPRAY BOTTLE NS SCH (09:34)
[2020-05-21] MEDS: Aspirin Enteric Coated 81 MG Tablet PO SCH (09:35)
[2020-05-21] MEDS: ALPRAZolam 0.25 MG TABLET PO PRN (09:35)
[2020-05-21] MEDS: Metoprolol XL (24 HR) Succ 25 MG TAB.ER.24H PO SCH ×2 (09:36→21:12)
[2020-05-21 11:45] LABS: Basophils # 0.1 K/mcL (0.0-0.2); Basophils % 0.4 %; Eosinophils # 0.2 K/mcL (0.0-0.6); Eosinophils % 0.9 %; Hematocrit 34.4 % (35.3-44.9); Hemoglobin 10.9 g/dL (11.5-15.4); Immature Granulocytes % 0.5 % (0-4); Lymphocytes # 0.7 K/mcL (0.6-4.6); Lymphocytes % 4.3 %; Mean Corpuscular HGB Conc 31.7 g/dL (31.6-35.5); Mean Corpuscular Hemoglobin 29.2 pg (28.0-33.3); Mean Corpuscular Volume 92.2 fL (83.0-100.0); Monocytes # 1.2 K/mcL (0.0-1.3); Neutrophils # 14.4 K/mcL (1.6-8.9); Platelet Count 395 K/mcL (140-400); Red Blood Count 3.73 M/mcL (3.82-4.97); Red Cell Distribution Width 14.2 % (11.5-14.5); Segmented Neutrophils % 86.9 %; White Blood Count 16.6 K/mcL (4.3-11.1)
[2020-05-21 12:46] LABS: Alanine Aminotransferase 16 Units/L (7-52); Albumin 3.5 g/dL (3.5-5.7); Albumin/Globulin Ratio 1.5 (1.1-2.2); Alkaline Phosphatase 77 Units/L (34-104); Aspartate Amino Transferase 19 Units/L (13-39); Bilirubin,Direct 0.1 mg/dL (0.0-0.2); Bilirubin,Indirect 0.3 mg/dL (0.0-1.0); Bilirubin,Total 0.4 mg/dL (0.3-1.0); Globulin 2.3 g/dL (2.4-3.5); Total Protein 5.8 g/dL (6.4-8.9)
[2020-05-21] MEDS: Tiotropium 10 INH DOSE IH SCH (14:09)
[2020-05-21 17:21] LABS: Bilirubin,Urine Negative (Negative); Blood,Urine Negative (Negative); Clarity,Urine Clear (Clear); Color,Urine Light-Yellow (Yellow); Glucose,Urine (UA) Normal (Normal); Ketones,Urine Negative (Negative); Leukocyte Esterase,Urine Negative (Negative); Nitrite,Urine Negative (Negative); PH,Urine 6.5 pH Units (5.0-8.0); Protein,Urine Negative (Neg-Trace); Specific Gravity,Urine 1.013 (1.010-1.025); Urobilinogen,Urine Normal (Normal)
[2020-05-21] MEDS: ALPRAZolam 0.5 MG TABLET PO SCH (21:13)
[2020-05-22] MEDS: GuaiFENesin Liq 200 MG/10 ML UDC PO PRN ×2 (03:37→08:35)
[2020-05-22 04:20] LABS: Basophils # 0.1 K/mcL (0.0-0.2); Basophils % 0.6 %; Eosinophils # 0.3 K/mcL (0.0-0.6); Hematocrit 34.2 % (35.3-44.9); Hemoglobin 10.9 g/dL (11.5-15.4); Immature Granulocytes % 0.3 % (0-4); Lymphocytes # 1.3 K/mcL (0.6-4.6); Lymphocytes % 12.9 %; Mean Corpuscular HGB Conc 31.9 g/dL (31.6-35.5); Mean Corpuscular Hemoglobin 29.5 pg (28.0-33.3); Mean Corpuscular Volume 92.7 fL (83.0-100.0); Mean Platelet Volume 8.2 fL (9.4-12.4); Monocytes # 1.2 K/mcL (0.0-1.3); Monocytes % 12.2 %; Neutrophils # 6.9 K/mcL (1.6-8.9); Platelet Count 392 K/mcL (140-400); Red Blood Count 3.69 M/mcL (3.82-4.97); White Blood Count 9.7 K/mcL (4.3-11.1)
[2020-05-22 04:34] LABS: BUN/Creatinine Ratio 16 (6-26); Blood Urea Nitrogen 9 mg/dL (8-23); Calcium 9.1 mg/dL (8.6-10.3); Carbon Dioxide 32 mEq/L (23-29); Chloride 95 mEq/L (98-107); Glucose 92 mg/dL (70-105); Osmolality,Calculated 272 (280-300); Potassium 4.5 mEq/L (3.5-5.1); Sodium 132 mEq/L (136-145); eGFR For African Americans > 60 (> 60); eGFR For Non-African Americans > 60 (> 60)
[2020-05-22 07:07] VITALS: BP 150/82
[2020-05-22] MEDS: Aspirin Enteric Coated 81 MG Tablet PO SCH (08:33)
[2020-05-22] MEDS: Loratadine 10 MG TABLET PO SCH (08:34)
[2020-05-22] MEDS: Metoprolol XL (24 HR) Succ 25 MG TAB.ER.24H PO SCH (08:34)
[2020-05-22] MEDS: Acetaminophen 325 MG TABLET PO PRN (08:34)
[2020-05-22] MEDS: Fluticasone Propionate Nasal 50 MCG/SPRAY BOTTLE NS SCH (08:35)
[2020-05-22] MEDS: Budesonide/Formoterol 160/4.5 1 PUFF INH IH SCH (09:39)
[2020-05-22] MEDS: ALPRAZolam 0.25 MG TABLET PO PRN (11:42)
[2020-05-22] MEDS ORDERED: Tiotropium 10 INH DOSE IH SCH (12:15)
== END 2020-05-22 12:14 | DRG 392 ==
LOC: 3BNU 16:43 → EMEROOARM 16:43 → 3BNU 22:30
PROVIDERS: ADMIT Student in an Organized Health Care Education/Training Program; ATTEND Student in an Organized Health Care Education/Training Program

== ENCOUNTER 2020-07-05 08:02 | Inpatient (IN) ==
[2020-07-05] MEDS ORDERED: Ipratropium/Albuterol Neb 3 ML IH ONE (08:10)
[2020-07-05] MEDS ORDERED: MethylPREDNISolone 40 MG/ML VIAL IVP ONE (08:12)
[2020-07-05] MEDS ORDERED: GuaiFENesin Liq 200 MG/10 ML UDC PO ONE (08:21)
[2020-07-05 08:56] LABS: Basophils # 0.1 K/mcL (0.0-0.2); Basophils % 0.8 %; Eosinophils # 0.3 K/mcL (0.0-0.6); Eosinophils % 4.4 %; Hematocrit 39.2 % (35.3-44.9); Hemoglobin 12.2 g/dL (11.5-15.4); Immature Granulocytes % 0.4 % (0-4); Lymphocytes # 1.3 K/mcL (0.6-4.6); Lymphocytes % 17.7 %; Mean Corpuscular HGB Conc 31.1 g/dL (31.6-35.5); Mean Corpuscular Hemoglobin 29.2 pg (28.0-33.3); Mean Corpuscular Volume 93.8 fL (83.0-100.0); Mean Platelet Volume 7.9 fL (9.4-12.4); Monocytes # 0.9 K/mcL (0.0-1.3); Monocytes % 11.8 %; Neutrophils # 4.9 K/mcL (1.6-8.9); Platelet Count 447 K/mcL (140-400); Red Blood Count 4.18 M/mcL (3.82-4.97); Red Cell Distribution Width 14.2 % (11.5-14.5); Segmented Neutrophils % 64.9 %; White Blood Count 7.6 K/mcL (4.3-11.1)
[2020-07-05 09:06] LABS: VBG HCO3 36 mEq/L (21-27); VBG PCO2 74 mmHg (41-51); VBG PH 7.29 pH Units (7.32-7.42); VBG PO2 45 mmHg (25-50)
[2020-07-05 09:06] LABS: INR 0.9; Prothrombin Time 10.3 Seconds (9.4-12.1)
[2020-07-05 09:08] LABS: Activated Partial Thrombo Time 36.1 Seconds (26.0-36.0)
[2020-07-05 09:16] LABS: BUN/Creatinine Ratio 15 (6-26); Blood Urea Nitrogen 9 mg/dL (8-23); Calcium 9.3 mg/dL (8.6-10.3); Carbon Dioxide 34 mEq/L (23-29); Chloride 95 mEq/L (98-107); Glucose 93 mg/dL (70-105); Osmolality,Calculated 276 (280-300); Potassium 4.3 mEq/L (3.5-5.1); Sodium 134 mEq/L (136-145); eGFR For African Americans > 60 (> 60); eGFR For Non-African Americans > 60 (> 60)
[2020-07-05 09:17] LABS: Troponin I < 0.03 ng/mL (< 0.04)
[2020-07-05 10:25] LABS: Adenovirus Not Detected (Not Detect); Bordetella Pertussis Not Detected (Not Detect); Chlamydophila pneumoniae Not Detected (Not Detect); Coronavirus 229E Not Detected (Not Detect); Coronavirus HKU1 Not Detected (Not Detect); Coronavirus NL63 Not Detected (Not Detect); Coronavirus OC43 Not Detected (Not Detect); Human Metapneumovirus Not Detected (Not Detect); Human Rhinovirus/Enterovirus Not Detected (Not Detect); Influenza A Subtype 2009 H1 Not Detected (Not Detect); Influenza B Not Detected (Not Detect); Mycoplasma pneumoniae Not Detected (Not Detect); Parainfluenza Virus 1 Not Detected (Not Detect); Parainfluenza Virus 2 Not Detected (Not Detect); Parainfluenza Virus 3 Not Detected (Not Detect); Parainfluenza Virus 4 Not Detected (Not Detect); Respiratory Syncytial Virus Not Detected (Not Detect); SARS-CoV-2 Not Detected (Not Detect)
[2020-07-05] MEDS ORDERED: Naloxone 0.4 MG/ML INJ IVP PRN (10:25)
[2020-07-05] MEDS ORDERED: Bisacodyl 10 MG RECTAL SUPPOSITORY RC PRN (12:57)
[2020-07-05] MEDS ORDERED: Nitroglycerin 0.4 MG TAB.SUBL SL PRN (12:57)
[2020-07-05] MEDS ORDERED: Lactulose Oral Soln 20 GM/30 ML UDC PO PRN (12:57)
[2020-07-05] MEDS ORDERED: Oxymetazoline Nasal SPRAY BOTTLE NS PRN (13:15)
[2020-07-05] MEDS: ALPRAZolam 0.5 MG TABLET PO PRN (13:36)
[2020-07-05] MEDS ORDERED: Ipratropium Neb 0.5 MG NEBULIZER ONE (13:42)
[2020-07-05] MEDS: Ipratropium Neb 0.5 MG NEBULIZER IH PRN (13:45)
[2020-07-05] MEDS: MethylPREDNISolone 40 MG/ML VIAL IVP SCH (18:27)
[2020-07-05] MEDS: GuaiFENesin Liq 200 MG/10 ML UDC PO PRN (22:06)
[2020-07-05] MEDS: Metoprolol XL (24 HR) Succ 25 MG TAB.ER.24H PO SCH (22:06)
[2020-07-05] MEDS: ALPRAZolam 0.5 MG TABLET PO SCH (22:06)
[2020-07-05] MEDS: *HR* Heparin 5,000 UNIT/ML VIAL SQ SCH (22:06)
[2020-07-05] MEDS: Simethicone 80 MG TAB.CHEW PO PRN (22:12)
[2020-07-05] MEDS: Budesonide/Formoterol 160/4.5 1 PUFF INH IH SCH (22:29)
[2020-07-06 04:01] LABS: Basophils % 0.2 %; Hematocrit 32.7 % (35.3-44.9); Hemoglobin 10.5 g/dL (11.5-15.4); Immature Granulocytes % 0.5 % (0-4); Lymphocytes # 0.7 K/mcL (0.6-4.6); Mean Corpuscular HGB Conc 32.1 g/dL (31.6-35.5); Mean Corpuscular Hemoglobin 28.7 pg (28.0-33.3); Mean Corpuscular Volume 89.3 fL (83.0-100.0); Mean Platelet Volume 7.8 fL (9.4-12.4); Monocytes # 0.5 K/mcL (0.0-1.3); Monocytes % 8.1 %; Neutrophils # 4.3 K/mcL (1.6-8.9); Platelet Count 376 K/mcL (140-400); Red Blood Count 3.66 M/mcL (3.82-4.97); Red Cell Distribution Width 13.7 % (11.5-14.5); Segmented Neutrophils % 78.2 %; White Blood Count 5.5 K/mcL (4.3-11.1)
[2020-07-06 04:31] LABS: BUN/Creatinine Ratio 21 (6-26); Blood Urea Nitrogen 10 mg/dL (8-23); Calcium 8.8 mg/dL (8.6-10.3); Carbon Dioxide 31 mEq/L (23-29); Chloride 96 mEq/L (98-107); Glucose 126 mg/dL (70-105); Osmolality,Calculated 275 (280-300); Potassium 4.7 mEq/L (3.5-5.1); Sodium 132 mEq/L (136-145); eGFR For African Americans > 60 (> 60); eGFR For Non-African Americans > 60 (> 60)
[2020-07-06] MEDS: *HR* Heparin 5,000 UNIT/ML VIAL SQ SCH ×3 (05:19→21:26)
[2020-07-06] MEDS: Ipratropium Neb 0.5 MG NEBULIZER IH PRN (05:19)
[2020-07-06] MEDS: MethylPREDNISolone 40 MG/ML VIAL IVP SCH ×2 (05:20→16:38)
[2020-07-06] MEDS: GuaiFENesin Liq 200 MG/10 ML UDC PO PRN ×4 (05:33→21:59)
[2020-07-06] MEDS: Budesonide/Formoterol 160/4.5 1 PUFF INH IH SCH ×2 (07:50→23:20)
[2020-07-06] MEDS: Aspirin Enteric Coated 81 MG Tablet PO SCH (08:55)
[2020-07-06] MEDS: Multivit/Ca/Min/Fe/FA 1 TAB TABLET PO SCH (08:55)
[2020-07-06] MEDS: Metoprolol XL (24 HR) Succ 25 MG TAB.ER.24H PO SCH ×2 (08:55→21:14)
[2020-07-06] MEDS: METHIMAZOLE PO SCH (08:55)
[2020-07-06] MEDS ORDERED: methIMAzole 5 MG TABLET PO SCH (09:00)
[2020-07-06] MEDS: (Plecanatide [Trulance] 3 MG Tablet) PO SCH (09:02)
[2020-07-06] MEDS: Fluticasone Propionate Nasal 50 MCG/SPRAY BOTTLE NS SCH (09:02)
[2020-07-06] MEDS: Simethicone 80 MG TAB.CHEW PO PRN ×3 (09:06→18:54)
[2020-07-06] MEDS: Tiotropium 10 INH DOSE IH SCH (09:55)
[2020-07-06] MEDS: ALPRAZolam 0.5 MG TABLET PO PRN (14:05)
[2020-07-06] MEDS: ALPRAZolam 0.5 MG TABLET PO SCH (21:14)
[2020-07-07 01:13] LABS: Basophils % 0.1 %; Hematocrit 33.6 % (35.3-44.9); Hemoglobin 10.8 g/dL (11.5-15.4); Immature Granulocytes % 0.4 % (0-4); Lymphocytes # 0.6 K/mcL (0.6-4.6); Lymphocytes % 7.7 %; Mean Corpuscular HGB Conc 32.1 g/dL (31.6-35.5); Mean Corpuscular Hemoglobin 28.8 pg (28.0-33.3); Mean Corpuscular Volume 89.6 fL (83.0-100.0); Monocytes # 0.7 K/mcL (0.0-1.3); Monocytes % 8.6 %; Neutrophils # 6.3 K/mcL (1.6-8.9); Platelet Count 407 K/mcL (140-400); Red Blood Count 3.75 M/mcL (3.82-4.97); Red Cell Distribution Width 13.9 % (11.5-14.5); Segmented Neutrophils % 83.2 %; White Blood Count 7.6 K/mcL (4.3-11.1)
[2020-07-07 01:34] LABS: BUN/Creatinine Ratio 32 (6-26); Blood Urea Nitrogen 17 mg/dL (8-23); Carbon Dioxide 31 mEq/L (23-29); Chloride 93 mEq/L (98-107); Glucose 146 mg/dL (70-105); Osmolality,Calculated 274 (280-300); Potassium 4.6 mEq/L (3.5-5.1); Sodium 130 mEq/L (136-145); eGFR For African Americans > 60 (> 60); eGFR For Non-African Americans > 60 (> 60)
[2020-07-07] MEDS: GuaiFENesin Liq 200 MG/10 ML UDC PO PRN ×4 (04:02→21:26)
[2020-07-07] MEDS: *HR* Heparin 5,000 UNIT/ML VIAL SQ SCH ×3 (05:41→19:57)
[2020-07-07] MEDS: MethylPREDNISolone 40 MG/ML VIAL IVP SCH ×2 (05:42→17:25)
[2020-07-07] MEDS: ALPRAZolam 0.5 MG TABLET PO PRN (05:50)
[2020-07-07] MEDS: Multivit/Ca/Min/Fe/FA 1 TAB TABLET PO SCH (07:21)
[2020-07-07] MEDS: METHIMAZOLE PO SCH (07:21)
[2020-07-07] MEDS: Aspirin Enteric Coated 81 MG Tablet PO SCH (07:21)
[2020-07-07] MEDS: Metoprolol XL (24 HR) Succ 25 MG TAB.ER.24H PO SCH ×2 (07:22→19:39)
[2020-07-07] MEDS: (Plecanatide [Trulance] 3 MG Tablet) PO SCH (09:52)
[2020-07-07] MEDS: Fluticasone Propionate Nasal 50 MCG/SPRAY BOTTLE NS SCH (09:52)
[2020-07-07] MEDS: Lactulose Oral Soln 20 GM/30 ML UDC PO PRN (09:58)
[2020-07-07] MEDS: Simethicone 80 MG TAB.CHEW PO PRN ×3 (09:59→17:26)
[2020-07-07] MEDS: Budesonide/Formoterol 160/4.5 1 PUFF INH IH SCH ×2 (10:50→22:09)
[2020-07-07] MEDS: Tiotropium 10 INH DOSE IH SCH (10:51)
[2020-07-07] MEDS: lisinopriL 5 MG TABLET PO SCH (19:38)
[2020-07-07] MEDS: ALPRAZolam 0.5 MG TABLET PO SCH (19:39)
[2020-07-08 01:28] LABS: Hematocrit 36.4 % (35.3-44.9); Hemoglobin 11.7 g/dL (11.5-15.4); Mean Corpuscular HGB Conc 32.1 g/dL (31.6-35.5); Mean Corpuscular Hemoglobin 29.3 pg (28.0-33.3); Mean Corpuscular Volume 91.2 fL (83.0-100.0); Platelet Count 462 K/mcL (140-400); Red Blood Count 3.99 M/mcL (3.82-4.97); Red Cell Distribution Width 13.9 % (11.5-14.5); White Blood Count 6.2 K/mcL (4.3-11.1)
[2020-07-08 01:47] LABS: BUN/Creatinine Ratio 22 (6-26); Blood Urea Nitrogen 13 mg/dL (8-23); Calcium 9.1 mg/dL (8.6-10.3); Carbon Dioxide 33 mEq/L (23-29); Chloride 93 mEq/L (98-107); Glucose 125 mg/dL (70-105); Osmolality,Calculated 276 (280-300); Potassium 4.3 mEq/L (3.5-5.1); Sodium 132 mEq/L (136-145); eGFR For African Americans > 60 (> 60); eGFR For Non-African Americans > 60 (> 60)
[2020-07-08] MEDS: GuaiFENesin Liq 200 MG/10 ML UDC PO PRN ×4 (05:28→23:31)
[2020-07-08] MEDS: *HR* Heparin 5,000 UNIT/ML VIAL SQ SCH ×3 (05:28→20:44)
[2020-07-08] MEDS: ALPRAZolam 0.5 MG TABLET PO PRN (05:28)
[2020-07-08] MEDS: MethylPREDNISolone 40 MG/ML VIAL IVP SCH ×2 (05:29→17:46)
[2020-07-08] MEDS: Tiotropium 10 INH DOSE IH SCH (08:21)
[2020-07-08] MEDS: Budesonide/Formoterol 160/4.5 1 PUFF INH IH SCH ×2 (08:22→19:38)
[2020-07-08] MEDS: Metoprolol XL (24 HR) Succ 25 MG TAB.ER.24H PO SCH ×2 (08:30→19:53)
[2020-07-08] MEDS: Multivit/Ca/Min/Fe/FA 1 TAB TABLET PO SCH (08:30)
[2020-07-08] MEDS: METHIMAZOLE PO SCH (08:30)
[2020-07-08] MEDS: Aspirin Enteric Coated 81 MG Tablet PO SCH (08:30)
[2020-07-08] MEDS: Fluticasone Propionate Nasal 50 MCG/SPRAY BOTTLE NS SCH (10:37)
[2020-07-08] MEDS: Lactulose Oral Soln 20 GM/30 ML UDC PO PRN (10:39)
[2020-07-08] MEDS: Simethicone 80 MG TAB.CHEW PO PRN (13:54)
[2020-07-08] MEDS ORDERED: Famotidine 20 MG TABLET PO PRN (17:26)
[2020-07-08] MEDS: (Plecanatide [Trulance] 3 MG Tablet) PO SCH (19:31)
[2020-07-08] MEDS: ALPRAZolam 0.5 MG TABLET PO SCH (19:46)
[2020-07-08] MEDS: lisinopriL 5 MG TABLET PO SCH (19:53)
[2020-07-09] MEDS ORDERED: ALPRAZolam 0.25 MG TABLET PO ONE (00:52)
[2020-07-09] MEDS: GuaiFENesin Liq 200 MG/10 ML UDC PO PRN ×2 (03:51→09:27)
[2020-07-09] MEDS: MethylPREDNISolone 40 MG/ML VIAL IVP SCH (05:31)
[2020-07-09] MEDS: *HR* Heparin 5,000 UNIT/ML VIAL SQ SCH (05:31)
[2020-07-09] MEDS: (Plecanatide [Trulance] 3 MG Tablet) PO SCH (08:38)
[2020-07-09] MEDS: Metoprolol XL (24 HR) Succ 25 MG TAB.ER.24H PO SCH (08:41)
[2020-07-09] MEDS: Fluticasone Propionate Nasal 50 MCG/SPRAY BOTTLE NS SCH ×2 (08:41→09:28)
[2020-07-09] MEDS: Aspirin Enteric Coated 81 MG Tablet PO SCH (08:41)
[2020-07-09] MEDS: METHIMAZOLE PO SCH (08:41)
[2020-07-09] MEDS: Multivit/Ca/Min/Fe/FA 1 TAB TABLET PO SCH (08:41)
[2020-07-09] MEDS: Simethicone 80 MG TAB.CHEW PO PRN (08:47)
[2020-07-09] MEDS ORDERED: polyethylene glycoL 3350 17 GM POWD.PACK PO PRN (08:54)
[2020-07-09] MEDS: Budesonide/Formoterol 160/4.5 1 PUFF INH IH SCH (10:47)
[2020-07-09] MEDS: Tiotropium 10 INH DOSE IH SCH (10:49)
[2020-07-09 10:55] VITALS: BP 139/67
== END 2020-07-09 13:45 | disposition home or self-care (01) | DRG 190 ==
LOC: EMEROOARM 08:02 → CDU 08:02 → 3NENU 18:35 → SUATTDRO 07-06 13:30
PROVIDERS: ADMIT Internal Medicine; ATTEND Internal Medicine

== ENCOUNTER 2020-11-09 06:09 | Inpatient (IN) ==
[2020-11-09 06:36] LABS: Basophils # 0.1 K/mcL (0.0-0.2); Basophils % 0.9 %; Eosinophils # 0.4 K/mcL (0.0-0.6); Eosinophils % 5.5 %; Hemoglobin 11.6 g/dL (11.5-15.4); Immature Granulocytes % 0.3 % (0-4); Lymphocytes # 2.1 K/mcL (0.6-4.6); Lymphocytes % 27.7 %; Mean Corpuscular HGB Conc 31.4 g/dL (31.6-35.5); Mean Corpuscular Hemoglobin 28.3 pg (28.0-33.3); Mean Corpuscular Volume 90.2 fL (83.0-100.0); Mean Platelet Volume 7.9 fL (9.4-12.4); Monocytes % 13.4 %; Neutrophils # 3.9 K/mcL (1.6-8.9); Platelet Count 440 K/mcL (140-400); Red Cell Distribution Width 14.3 % (11.5-14.5); Segmented Neutrophils % 52.2 %; White Blood Count 7.4 K/mcL (4.3-11.1)
[2020-11-09 06:57] LABS: BUN/Creatinine Ratio 17 (6-26); Blood Urea Nitrogen 10 mg/dL (8-23); Calcium 9.1 mg/dL (8.6-10.3); Carbon Dioxide 33 mEq/L (23-29); Chloride 93 mEq/L (98-107); Glucose 113 mg/dL (70-105); Osmolality,Calculated 270 (280-300); Potassium 4.4 mEq/L (3.5-5.1); Sodium 130 mEq/L (136-145); Troponin I < 0.03 ng/mL (< 0.04); eGFR For African Americans > 60 (> 60); eGFR For Non-African Americans > 60 (> 60)
[2020-11-09] MEDS ORDERED: Isovue-370 500 ML BOTTLE IVP ONE (07:34)
[2020-11-09] MEDS ORDERED: ALPRAZolam 0.5 MG TABLET PO ONE (08:00)
[2020-11-09] MEDS ORDERED: Albuterol 2.5 MG/3 ML NEBULIZER IH ONE (09:55)
[2020-11-09] MEDS ORDERED: Naloxone 0.4 MG/ML INJ IVP PRN (10:58)
[2020-11-09] MEDS ORDERED: Albuterol 2.5 MG/3 ML NEBULIZER IH SCH (12:00)
[2020-11-09] MEDS: Metoprolol XL (24 HR) Succ 25 MG TAB.ER.24H PO SCH ×2 (13:30→22:34)
[2020-11-09] MEDS ORDERED: Tiotropium 10 INH DOSE IH ONE (15:36)
[2020-11-09] MEDS: Pantoprazole 40 MG in 0.9 % Sodium Chloride Mini Bag 100 ML IVC SCH ×2 (17:09→22:34)
[2020-11-09] MEDS ORDERED: Pantoprazole 40 MG VIAL IVP SCH (18:00)
[2020-11-09] MEDS: Budesonide/Formoterol 160/4.5 1 PUFF INH IH SCH (19:54)
[2020-11-09] MEDS ORDERED: Sennosides/Docusate Sodium TABLET PO PRN (21:56)
[2020-11-09 22:24] LABS: Prothrombin Time 11.7 Seconds (9.4-12.1)
[2020-11-09] MEDS ORDERED: Nitroglycerin 0.4 MG TAB.SUBL SL PRN (22:40)
[2020-11-09] MEDS ORDERED: Artificial Tears SOLN 15 ML BOTTLE OP PRN (22:40)
[2020-11-09] MEDS ORDERED: Fluticasone Propionate Nasal 50 MCG/SPRAY BOTTLE NS PRN (22:40)
[2020-11-09] MEDS ORDERED: Lactulose Oral Soln 20 GM/30 ML UDC PO PRN (22:45)
[2020-11-09] MEDS ORDERED: Glycerin RECTAL Suppository RC PRN (22:48)
[2020-11-09] MEDS: ALPRAZolam 0.5 MG TABLET PO SCH (23:10)
[2020-11-10] MEDS: Pantoprazole 40 MG in 0.9 % Sodium Chloride Mini Bag 100 ML IVC SCH ×3 (03:44→16:10)
[2020-11-10 06:46] LABS: Basophils % 0.3 %; Eosinophils % 0.3 %; Hematocrit 34.7 % (35.3-44.9); Hemoglobin 11.2 g/dL (11.5-15.4); Immature Granulocytes % 0.3 % (0-4); Lymphocytes # 1.3 K/mcL (0.6-4.6); Lymphocytes % 19.5 %; Mean Corpuscular HGB Conc 32.3 g/dL (31.6-35.5); Mean Corpuscular Hemoglobin 28.9 pg (28.0-33.3); Mean Corpuscular Volume 89.4 fL (83.0-100.0); Monocytes # 0.8 K/mcL (0.0-1.3); Monocytes % 12.4 %; Neutrophils # 4.5 K/mcL (1.6-8.9); Platelet Count 413 K/mcL (140-400); Red Blood Count 3.88 M/mcL (3.82-4.97); Red Cell Distribution Width 14.2 % (11.5-14.5); Segmented Neutrophils % 67.2 %; White Blood Count 6.7 K/mcL (4.3-11.1)
[2020-11-10 07:10] LABS: BUN/Creatinine Ratio 16 (6-26); Blood Urea Nitrogen 9 mg/dL (8-23); Carbon Dioxide 33 mEq/L (23-29); Chloride 92 mEq/L (98-107); Glucose 95 mg/dL (70-105); Osmolality,Calculated 270 (280-300); Potassium 4.5 mEq/L (3.5-5.1); Sodium 131 mEq/L (136-145); eGFR For African Americans > 60 (> 60); eGFR For Non-African Americans > 60 (> 60)
[2020-11-10] MEDS: Budesonide/Formoterol 160/4.5 1 PUFF INH IH SCH ×2 (07:12→20:33)
[2020-11-10] MEDS: Tiotropium 10 INH DOSE IH SCH (07:15)
[2020-11-10] MEDS ORDERED: NON-FORMULARY MEDICATION 1 EACH EACH (Omeprazole [Prilosec] 40 MG Capsule.Dr) PO SCH (09:00)
[2020-11-10] MEDS: Metoprolol XL (24 HR) Succ 25 MG TAB.ER.24H PO SCH ×2 (09:17→20:50)
[2020-11-10] MEDS ORDERED: *HR* Propofol 200 MG/20 ML VIAL IVP ONE (10:17)
[2020-11-10] MEDS ORDERED: *HR* Succinylcholine 200 MG/10 ML VIAL IVP ONE (10:17)
[2020-11-10] MEDS ORDERED: Lidocaine -MPF 2% 5 ML VIAL ONE (10:17)
[2020-11-10] MEDS ORDERED: Lidocaine -MPF 4% 5 ML AMPUL ONE (10:17)
[2020-11-10] MEDS ORDERED: *HR* FentaNYL (PF) 100 MCG/2 ML VIAL ONE (10:17)
[2020-11-10] MEDS: Ringers Solution, Lactated 1,000 ML IVC SCH (10:35)
[2020-11-10] MEDS: GuaiFENesin Liq 200 MG/10 ML UDC PO SCH ×3 (11:41→20:50)
[2020-11-10] MEDS: Multivit/Ca/Min/Fe/FA 1 TAB TABLET PO SCH ×2 (11:41→11:43)
[2020-11-10] MEDS: ALPRAZolam 0.25 MG TABLET PO PRN (11:41)
[2020-11-10 14:00] LABS: Appearance of Body Fluid Hazy (Clear); Volume of Body Fluid 19 mL
[2020-11-10] MEDS: hydrALAZINE 25 MG TABLET PO SCH ×2 (15:49→23:57)
[2020-11-10] MEDS: ALPRAZolam 0.5 MG TABLET PO SCH (20:50)
[2020-11-11] MEDS ORDERED: GuaiFENesin Liq 200 MG/10 ML UDC PO ONE (03:37)
[2020-11-11] MEDS: ALPRAZolam 0.25 MG TABLET PO PRN (04:19)
[2020-11-11] MEDS: Ringers Solution, Lactated 1,000 ML IVC SCH (07:08)
[2020-11-11] MEDS: Budesonide/Formoterol 160/4.5 1 PUFF INH IH SCH ×2 (07:28→20:09)
[2020-11-11] MEDS: Tiotropium 10 INH DOSE IH SCH (07:28)
[2020-11-11 07:38] LABS: BUN/Creatinine Ratio 16 (6-26); Blood Urea Nitrogen 9 mg/dL (8-23); Calcium 8.7 mg/dL (8.6-10.3); Carbon Dioxide 35 mEq/L (23-29); Chloride 94 mEq/L (98-107); Glucose 89 mg/dL (70-105); Magnesium 1.9 mg/dL (1.6-2.6); Osmolality,Calculated 274 (280-300); Phosphorous 3.2 mg/dL (2.7-4.5); Potassium 4.2 mEq/L (3.5-5.1); Sodium 133 mEq/L (136-145); eGFR For African Americans > 60 (> 60); eGFR For Non-African Americans > 60 (> 60)
[2020-11-11] MEDS ORDERED: *HR* Labetalol 20 MG/4 ML SYRINGE IVP PRN (07:52)
[2020-11-11] MEDS ORDERED: *HR* LORazepam 2 MG/ML VIAL IVP ONE (08:13)
[2020-11-11] MEDS: Metoprolol XL (24 HR) Succ 50 MG TAB.ER.24H PO SCH (08:25)
[2020-11-11] MEDS: hydrALAZINE 25 MG TABLET PO SCH ×2 (08:25→16:14)
[2020-11-11] MEDS: GuaiFENesin Liq 200 MG/10 ML UDC PO SCH ×4 (08:25→20:23)
[2020-11-11] MEDS: Multivit/Ca/Min/Fe/FA 1 TAB TABLET PO SCH (08:26)
[2020-11-11] MEDS: *HR* Heparin 5,000 UNIT/ML VIAL SQ SCH (17:22)
[2020-11-11] MEDS: Saline Nasal Spray 44 ML BOTTLE NS PRN (17:39)
[2020-11-11] MEDS: ALPRAZolam 0.5 MG TABLET PO SCH (20:03)
[2020-11-11] MEDS: Simethicone 80 MG TAB.CHEW PO PRN (20:23)
[2020-11-11] MEDS: Furosemide 20 MG/2 ML VIAL IVP SCH (23:57)
[2020-11-12] MEDS: hydrALAZINE 25 MG TABLET PO SCH ×3 (05:14→14:33)
[2020-11-12] MEDS: ALPRAZolam 0.25 MG TABLET PO PRN (05:30)
[2020-11-12] MEDS: *HR* Heparin 5,000 UNIT/ML VIAL SQ SCH ×2 (05:31→16:34)
[2020-11-12] MEDS: Budesonide/Formoterol 160/4.5 1 PUFF INH IH SCH ×2 (07:37→20:07)
[2020-11-12] MEDS: Tiotropium 10 INH DOSE IH SCH (07:40)
[2020-11-12] MEDS: Furosemide 20 MG/2 ML VIAL IVP SCH ×2 (07:44→20:39)
[2020-11-12] MEDS: GuaiFENesin Liq 200 MG/10 ML UDC PO SCH ×4 (07:44→20:36)
[2020-11-12] MEDS: Metoprolol XL (24 HR) Succ 50 MG TAB.ER.24H PO SCH (07:45)
[2020-11-12] MEDS: Aspirin Enteric Coated 81 MG Tablet PO SCH (07:45)
[2020-11-12] MEDS: Multivit/Ca/Min/Fe/FA 1 TAB TABLET PO SCH (07:45)
[2020-11-12] MEDS: Simethicone 80 MG TAB.CHEW PO PRN ×2 (11:39→21:05)
[2020-11-12] MEDS ORDERED: ALPRAZolam 0.25 MG TABLET PO ONE (14:12)
[2020-11-12] MEDS: Saline Nasal Spray 44 ML BOTTLE NS PRN (15:22)
[2020-11-12] MEDS: ALPRAZolam 0.5 MG TABLET PO SCH (20:35)
[2020-11-13] MEDS: GuaiFENesin Liq 200 MG/10 ML UDC PO SCH ×3 (00:59→08:43)
[2020-11-13] MEDS ORDERED: Ondansetron 4 MG/2 ML VIAL IVP ONE (03:50)
[2020-11-13 05:01] VITALS: TEMP 98.4
[2020-11-13] MEDS: *HR* Heparin 5,000 UNIT/ML VIAL SQ SCH (05:46)
[2020-11-13] MEDS: Tiotropium 10 INH DOSE IH SCH (07:35)
[2020-11-13] MEDS: Budesonide/Formoterol 160/4.5 1 PUFF INH IH SCH (07:35)
[2020-11-13 08:12] VITALS: BP 160/94; PULSE 98
[2020-11-13] MEDS: Metoprolol XL (24 HR) Succ 50 MG TAB.ER.24H PO SCH ×2 (08:37→08:44)
[2020-11-13] MEDS: Furosemide 20 MG/2 ML VIAL IVP SCH (08:37)
[2020-11-13] MEDS ORDERED: *HR* HYDROcodone/Acet 5/325 mg TABLET PO ONE (08:42)
[2020-11-13] MEDS: Multivit/Ca/Min/Fe/FA 1 TAB TABLET PO SCH (08:43)
[2020-11-13] MEDS: Aspirin Enteric Coated 81 MG Tablet PO SCH (08:43)
[2020-11-13 12:17] VITALS: O2SAT 98
== END 2020-11-13 12:38 | disposition home health service (06) | DRG 190 ==
LOC: CDU 06:09 → EMEROOARM 06:09 → SUATTDRO 11:04 → CDU 11:57 → 3BNU 11-11 17:18
PROVIDERS: ADMIT Internal Medicine; ATTEND Internal Medicine

== ENCOUNTER 2020-11-15 08:09 | Observation (INO) ==
[2020-11-15] MEDS ORDERED: Albuterol 2.5 MG/3 ML NEBULIZER IH ONE (08:48)
[2020-11-15] MEDS ORDERED: methylPREDNISolone 125 MG/2 ML VIAL IVP ONE (08:48)
[2020-11-15 09:42] LABS: Basophils # 0.1 K/mcL (0.0-0.2); Basophils % 0.9 %; Eosinophils # 0.1 K/mcL (0.0-0.6); Eosinophils % 1.6 %; Hematocrit 35.3 % (35.3-44.9); Hemoglobin 11.5 g/dL (11.5-15.4); Immature Granulocytes % 0.4 % (0-4); Lymphocytes # 0.9 K/mcL (0.6-4.6); Lymphocytes % 10.8 %; Mean Corpuscular HGB Conc 32.6 g/dL (31.6-35.5); Mean Corpuscular Hemoglobin 28.6 pg (28.0-33.3); Mean Corpuscular Volume 87.8 fL (83.0-100.0); Mean Platelet Volume 8.2 fL (9.4-12.4); Monocytes # 0.9 K/mcL (0.0-1.3); Monocytes % 11.2 %; Neutrophils # 6.1 K/mcL (1.6-8.9); Platelet Count 428 K/mcL (140-400); Red Blood Count 4.02 M/mcL (3.82-4.97); Red Cell Distribution Width 14.1 % (11.5-14.5); Segmented Neutrophils % 75.1 %; White Blood Count 8.1 K/mcL (4.3-11.1)
[2020-11-15 09:54] LABS: BUN/Creatinine Ratio 17 (6-26); Blood Urea Nitrogen 8 mg/dL (8-23); Carbon Dioxide 32 mEq/L (23-29); Chloride 88 mEq/L (98-107); Glucose 104 mg/dL (70-105); Osmolality,Calculated 265 (280-300); Potassium 4.4 mEq/L (3.5-5.1); Sodium 128 mEq/L (136-145); Troponin I < 0.03 ng/mL (< 0.04); eGFR For African Americans > 60 (> 60); eGFR For Non-African Americans > 60 (> 60)
[2020-11-15 10:32] LABS: Bilirubin,Urine Negative (Negative); Blood,Urine Negative (Negative); Clarity,Urine Clear (Clear); Color,Urine Light-Yellow (Yellow); Glucose,Urine (UA) Normal (Normal); Ketones,Urine 40 mg/dL (Negative); Leukocyte Esterase,Urine Negative (Negative); Nitrite,Urine Negative (Negative); Protein,Urine Negative (Neg-Trace); Specific Gravity,Urine 1.012 (1.010-1.025); Urobilinogen,Urine Normal (Normal)
[2020-11-15] MEDS ORDERED: Metoprolol XL (24 HR) Succ 50 MG TAB.ER.24H PO SCH (10:45)
[2020-11-15] MEDS ORDERED: *HR* Labetalol 20 MG/4 ML SYRINGE IVP PRN (11:11)
[2020-11-15] MEDS ORDERED: GI Cocktail 40 ML EACH PO ONE (11:56)
[2020-11-15 13:36] VITALS: BP 191/98; PULSE 98; TEMP 98.1; O2SAT 98
[2020-11-15] MEDS ORDERED: Simethicone 80 MG TAB.CHEW PO PRN (14:26)
[2020-11-15] MEDS ORDERED: Lactulose Oral Soln 20 GM/30 ML UDC PO PRN (14:26)
[2020-11-15] MEDS ORDERED: Nitroglycerin 0.4 MG TAB.SUBL SL PRN (14:26)
[2020-11-15] MEDS ORDERED: Fluticasone Propionate Nasal 50 MCG/SPRAY BOTTLE NS PRN (14:26)
[2020-11-15] MEDS ORDERED: Glycerin RECTAL Suppository RC PRN (14:26)
[2020-11-15] MEDS ORDERED: ALPRAZolam 0.25 MG TABLET PO PRN (14:26)
[2020-11-15] MEDS ORDERED: (Diclofenac Sodium [Arthritis Pain] 100 GM Gel..Gram. TP PRN (14:26)
[2020-11-15] MEDS ORDERED: Oxymetazoline Nasal SPRAY BOTTLE NS PRN (14:26)
[2020-11-15] MEDS ORDERED: Artificial Tears SOLN 15 ML BOTTLE OP PRN (14:26)
[2020-11-15] MEDS ORDERED: Naloxone 0.4 MG/ML INJ IVP PRN (14:30)
[2020-11-15] MEDS ORDERED: Ondansetron 4 MG/2 ML VIAL IVP PRN (14:30)
[2020-11-15] MEDS ORDERED: GuaiFENesin Liq 200 MG/10 ML UDC PO SCH (15:00)
[2020-11-15] MEDS ORDERED: ALPRAZolam 0.5 MG TABLET PO SCH (21:00)
[2020-11-15] MEDS ORDERED: Famotidine 20 MG TABLET PO SCH (21:00)
[2020-11-15] MEDS ORDERED: Budesonide/Formoterol 160/4.5 1 PUFF INH IH SCH (22:00)
[2020-11-16] MEDS ORDERED: Multivit/Ca/Min/Fe/FA 1 TAB TABLET PO SCH (09:00)
[2020-11-16] MEDS ORDERED: Metoprolol XL (24 HR) Succ 25 MG TAB.ER.24H PO SCH (09:00)
[2020-11-16] MEDS ORDERED: [UNRECOGNIZED DRUG - REMARK] PO SCH (09:00)
[2020-11-16] MEDS ORDERED: Aspirin Enteric Coated 81 MG Tablet PO SCH (09:00)
[2020-11-16] MEDS ORDERED: Tiotropium 10 INH DOSE IH SCH (10:00)
== END 2020-11-15 17:25 | disposition other institution (70) ==
LOC: EMEROOARM 08:09 → 3ANU 08:09
PROVIDERS: ADMIT Student in an Organized Health Care Education/Training Program; ATTEND Student in an Organized Health Care Education/Training Program

== ENCOUNTER 2020-11-25 03:13 | Inpatient (IN) ==
[2020-11-25] MEDS ORDERED: Ipratropium/Albuterol Neb 3 ML IH ONE (03:35)
[2020-11-25] MEDS ORDERED: methylPREDNISolone 125 MG/2 ML VIAL IVP ONE (03:36)
[2020-11-25 04:26] LABS: Basophils # 0.1 K/mcL (0.0-0.2); Basophils % 0.7 %; Eosinophils # 0.2 K/mcL (0.0-0.6); Eosinophils % 2.9 %; Hematocrit 32.6 % (35.3-44.9); Hemoglobin 10.2 g/dL (11.5-15.4); Immature Granulocytes % 0.5 % (0-4); Lymphocytes # 1.3 K/mcL (0.6-4.6); Lymphocytes % 17.7 %; Mean Corpuscular HGB Conc 31.3 g/dL (31.6-35.5); Mean Corpuscular Hemoglobin 28.6 pg (28.0-33.3); Mean Corpuscular Volume 91.3 fL (83.0-100.0); Mean Platelet Volume 8.1 fL (9.4-12.4); Monocytes # 1.1 K/mcL (0.0-1.3); Neutrophils # 4.9 K/mcL (1.6-8.9); Platelet Count 472 K/mcL (140-400); Red Blood Count 3.57 M/mcL (3.82-4.97); Red Cell Distribution Width 14.6 % (11.5-14.5); Segmented Neutrophils % 64.2 %; White Blood Count 7.6 K/mcL (4.3-11.1)
[2020-11-25 04:37] LABS: VBG HCO3 36 mEq/L (21-27); VBG PCO2 72 mmHg (41-51); VBG PH 7.31 pH Units (7.32-7.42); VBG PO2 109 mmHg (25-50)
[2020-11-25 04:50] LABS: Alanine Aminotransferase 17 Units/L (7-52); Albumin 3.8 g/dL (3.5-5.7); Albumin/Globulin Ratio 1.5 (1.1-2.2); Alkaline Phosphatase 71 Units/L (34-104); Aspartate Amino Transferase 24 Units/L (13-39); BUN/Creatinine Ratio 23 (6-26); Bilirubin,Direct 0.1 mg/dL (0.0-0.2); Bilirubin,Indirect 0.3 mg/dL (0.0-1.0); Bilirubin,Total 0.4 mg/dL (0.3-1.0); Blood Urea Nitrogen 13 mg/dL (8-23); Carbon Dioxide 34 mEq/L (23-29); Chloride 89 mEq/L (98-107); Globulin 2.6 g/dL (2.4-3.5); Glucose 102 mg/dL (70-105); Osmolality,Calculated 266 (280-300); Potassium 4.9 mEq/L (3.5-5.1); Sodium 128 mEq/L (136-145); Total Protein 6.4 g/dL (6.4-8.9); Troponin I < 0.03 ng/mL (< 0.04); eGFR For African Americans > 60 (> 60); eGFR For Non-African Americans > 60 (> 60)
[2020-11-25] MEDS ORDERED: Naloxone 0.4 MG/ML INJ IVP PRN (05:40)
[2020-11-25] MEDS ORDERED: *HR* HYDROcodone/Acet 5/325 mg TABLET PO PRN (05:40)
[2020-11-25] MEDS ORDERED: Melatonin 3 MG TABLET PO PRN (05:40)
[2020-11-25] MEDS ORDERED: Acetaminophen 325 MG TABLET PO PRN (05:40)
[2020-11-25] MEDS ORDERED: *HR* Promethazine 25 MG/ML VIAL IM PRN (05:40)
[2020-11-25] MEDS ORDERED: Ondansetron 4 MG/2 ML VIAL IVP PRN (05:40)
[2020-11-25] MEDS ORDERED: *HR* OxyCODONE Immed Rel 5 MG TABLET PO PRN (05:40)
[2020-11-25] MEDS ORDERED: Ipratropium/Albuterol Neb 3 ML IH PRN (05:46)
[2020-11-25] MEDS ORDERED: *HR* LORazepam 2 MG/ML VIAL IVP ONE (06:23)
[2020-11-25] MEDS ORDERED: 0.9 % Sodium Chloride 250 ML ONE (07:24)
[2020-11-25] MEDS: Azithromycin 500 MG in 0.9 % Sodium Chloride 250 ML IVPB SCH (07:29)
[2020-11-25] MEDS: Ipratropium/Albuterol Neb 3 ML IH SCH ×5 (07:34→23:14)
[2020-11-25] MEDS: MethylPREDNISolone 40 MG/ML VIAL IVP SCH ×2 (12:18→21:01)
[2020-11-25] MEDS: Budesonide/Formoterol 160/4.5 1 PUFF INH IH SCH ×2 (12:30→19:47)
[2020-11-25] MEDS ORDERED: Nitroglycerin 0.4 MG TAB.SUBL SL PRN (15:18)
[2020-11-25] MEDS ORDERED: Lactulose Oral Soln 20 GM/30 ML UDC PO PRN (15:31)
[2020-11-25] MEDS: Metoprolol XL (24 HR) Succ 25 MG TAB.ER.24H PO SCH ×2 (16:45→21:00)
[2020-11-25] MEDS: ALPRAZolam 0.5 MG TABLET PO SCH (21:00)
[2020-11-25] MEDS ORDERED: Budesonide/Formoterol 160/4.5 1 PUFF INH IH SCH (21:00)
[2020-11-25] MEDS: Famotidine 20 MG TABLET PO SCH (21:00)
[2020-11-25] MEDS: GuaiFENesin Liq 200 MG/10 ML UDC PO SCH (21:01)
[2020-11-26] MEDS: Ipratropium/Albuterol Neb 3 ML IH SCH ×6 (04:03→23:09)
[2020-11-26 05:18] LABS: Basophils % 0.2 %; Hematocrit 32.1 % (35.3-44.9); Hemoglobin 10.7 g/dL (11.5-15.4); Lymphocytes # 0.5 K/mcL (0.6-4.6); Lymphocytes % 7.5 %; Mean Corpuscular HGB Conc 33.3 g/dL (31.6-35.5); Mean Corpuscular Hemoglobin 29.6 pg (28.0-33.3); Mean Corpuscular Volume 88.7 fL (83.0-100.0); Mean Platelet Volume 8.1 fL (9.4-12.4); Monocytes # 0.3 K/mcL (0.0-1.3); Monocytes % 4.8 %; Neutrophils # 5.4 K/mcL (1.6-8.9); Platelet Count 486 K/mcL (140-400); Red Blood Count 3.62 M/mcL (3.82-4.97); Red Cell Distribution Width 14.6 % (11.5-14.5); Segmented Neutrophils % 86.5 %; White Blood Count 6.3 K/mcL (4.3-11.1)
[2020-11-26 05:19] LABS: VBG HCO3 33 mEq/L (21-27); VBG PCO2 54 mmHg (41-51); VBG PO2 76 mmHg (25-50)
[2020-11-26] MEDS: ALPRAZolam 0.25 MG TABLET PO PRN (05:23)
[2020-11-26] MEDS: *HR* Enoxaparin 40 MG/0.4 ML SYRINGE SQ SCH (05:23)
[2020-11-26 05:40] LABS: BUN/Creatinine Ratio 25 (6-26); Blood Urea Nitrogen 14 mg/dL (8-23); Calcium 9.3 mg/dL (8.6-10.3); Carbon Dioxide 32 mEq/L (23-29); Chloride 90 mEq/L (98-107); Glucose 120 mg/dL (70-105); Magnesium 2.1 mg/dL (1.6-2.6); Osmolality,Calculated 272 (280-300); Sodium 130 mEq/L (136-145); eGFR For African Americans > 60 (> 60); eGFR For Non-African Americans > 60 (> 60)
[2020-11-26 06:01] LABS: Thyroid Stimulating Hormone 0.653 mcIU/mL (0.340-5.600)
[2020-11-26 06:02] LABS: Triiodothyronine (T3) Free 2.71 pg/mL (2.50-3.90)
[2020-11-26] MEDS: Azithromycin 500 MG in 0.9 % Sodium Chloride 250 ML IVPB SCH (06:32)
[2020-11-26] MEDS: Budesonide/Formoterol 160/4.5 1 PUFF INH IH SCH ×2 (07:34→19:44)
[2020-11-26] MEDS ORDERED: methIMAzole 5 MG TABLET PO SCH (09:00)
[2020-11-26] MEDS ORDERED: predniSONE 20 MG TABLET PO SCH (09:00)
[2020-11-26 09:02] LABS: Acinetobacter baumannii by PCR Not Detected (Not Detect); Candida albicans by PCR Not Detected (Not Detect); Candida glabrata by PCR Not Detected (Not Detect); Candida krusei by PCR Not Detected (Not Detect); Candida parapsilosis by PCR Not Detected (Not Detect); Candida tropicalis by PCR Not Detected (Not Detect); Enterobacter cloacae Cmplx PCR Not Detected (Not Detect); Enterobacteriaceae by PCR Not Detected (Not Detect); Enterococcus by PCR Not Detected (Not Detect); Escherichia coli by PCR Not Detected (Not Detect); Klebsiella oxytoca by PCR Not Detected (Not Detect); Klebsiella pneumoniae by PCR Not Detected (Not Detect); Proteus by PCR Not Detected (Not Detect); Pseudomonas aeruginosa by PCR Not Detected (Not Detect); Serratia marcescens by PCR Not Detected (Not Detect); Staphylococcus aureus by PCR Not Detected (Not Detect); Staphylococcus by PCR DETECTED (Not Detect); Streptococcus agalactiae(B)PCR Not Detected (Not Detect); Streptococcus by PCR Not Detected (Not Detect); Streptococcus pneumoniae PCR Not Detected (Not Detect); Streptococcus pyogenes (A) PCR Not Detected (Not Detect); mecA Methicillin-Resist Gene Not Detected (Not Detect)
[2020-11-26] MEDS: Multivit/Ca/Min/Fe/FA 1 TAB TABLET PO SCH (09:40)
[2020-11-26] MEDS: GuaiFENesin Liq 200 MG/10 ML UDC PO SCH ×2 (09:40→16:09)
[2020-11-26] MEDS: Aspirin Enteric Coated 81 MG Tablet PO SCH (09:40)
[2020-11-26] MEDS: Metoprolol XL (24 HR) Succ 25 MG TAB.ER.24H PO SCH (09:41)
[2020-11-26] MEDS: Loratadine 10 MG TABLET PO SCH (09:41)
[2020-11-26] MEDS ORDERED: Simethicone 80 MG TAB.CHEW PO PRN (15:46)
[2020-11-26] MEDS ORDERED: Saline Nasal Spray 44 ML BOTTLE NS PRN (15:47)
[2020-11-27] MEDS: Famotidine 20 MG TABLET PO SCH (00:43)
[2020-11-27] MEDS: Metoprolol XL (24 HR) Succ 25 MG TAB.ER.24H PO SCH ×2 (00:43→08:43)
[2020-11-27] MEDS: GuaiFENesin Liq 200 MG/10 ML UDC PO SCH ×3 (00:43→14:41)
[2020-11-27] MEDS: ALPRAZolam 0.5 MG TABLET PO SCH (00:44)
[2020-11-27] MEDS: Ipratropium/Albuterol Neb 3 ML IH SCH ×3 (04:06→11:03)
[2020-11-27] MEDS: Azithromycin 500 MG in 0.9 % Sodium Chloride 250 ML IVPB SCH (05:39)
[2020-11-27] MEDS: *HR* Enoxaparin 40 MG/0.4 ML SYRINGE SQ SCH (05:41)
[2020-11-27 06:17] LABS: VBG HCO3 35 mEq/L (21-27); VBG PCO2 63 mmHg (41-51); VBG PH 7.36 pH Units (7.32-7.42); VBG PO2 73 mmHg (25-50)
[2020-11-27 06:21] LABS: Basophils % 0.6 %; Eosinophils # 0.1 K/mcL (0.0-0.6); Eosinophils % 1.1 %; Hematocrit 34.8 % (35.3-44.9); Hemoglobin 11.2 g/dL (11.5-15.4); Immature Granulocytes % 0.6 % (0-4); Lymphocytes # 1.6 K/mcL (0.6-4.6); Mean Corpuscular HGB Conc 32.2 g/dL (31.6-35.5); Mean Corpuscular Hemoglobin 28.6 pg (28.0-33.3); Mean Corpuscular Volume 88.8 fL (83.0-100.0); Mean Platelet Volume 8.1 fL (9.4-12.4); Monocytes # 1.1 K/mcL (0.0-1.3); Monocytes % 14.5 %; Neutrophils # 4.4 K/mcL (1.6-8.9); Platelet Count 546 K/mcL (140-400); Red Blood Count 3.92 M/mcL (3.82-4.97); Red Cell Distribution Width 14.9 % (11.5-14.5); Segmented Neutrophils % 61.2 %; White Blood Count 7.2 K/mcL (4.3-11.1)
[2020-11-27 06:41] LABS: BUN/Creatinine Ratio 27 (6-26); Blood Urea Nitrogen 15 mg/dL (8-23); Carbon Dioxide 34 mEq/L (23-29); Chloride 92 mEq/L (98-107); Glucose 92 mg/dL (70-105); Magnesium 1.9 mg/dL (1.6-2.6); Osmolality,Calculated 274 (280-300); Potassium 4.2 mEq/L (3.5-5.1); Sodium 132 mEq/L (136-145); eGFR For African Americans > 60 (> 60); eGFR For Non-African Americans > 60 (> 60)
[2020-11-27] MEDS: Budesonide/Formoterol 160/4.5 1 PUFF INH IH SCH (07:51)
[2020-11-27] MEDS: Multivit/Ca/Min/Fe/FA 1 TAB TABLET PO SCH (08:43)
[2020-11-27] MEDS: Aspirin Enteric Coated 81 MG Tablet PO SCH (08:43)
[2020-11-27] MEDS: Loratadine 10 MG TABLET PO SCH (08:43)
[2020-11-27] MEDS ORDERED: predniSONE 20 MG TABLET PO SCH (09:00)
[2020-11-27 11:14] VITALS: BP 155/84; PULSE 98; TEMP 98.7; O2SAT 97
[2020-11-27] MEDS ORDERED: Oxymetazoline Nasal SPRAY BOTTLE NS PRN (11:34)
[2020-11-27] MEDS: ALPRAZolam 0.25 MG TABLET PO PRN (11:54)
== END 2020-11-27 16:04 | disposition home health service (06) | DRG 189 ==
LOC: EMEROOARM 03:13 → 2ANU 03:13 → SUATTDRO 06:02 → 2ANU 06:56 → SUATTDRO 21:20
PROVIDERS: ADMIT Family Medicine; ATTEND Family Medicine

== ENCOUNTER 2021-02-05 06:45 | Inpatient (IN) ==
[2021-02-05] MEDS ORDERED: 0.9 % Sodium Chloride 1,000 ML IVC ONE (07:10)
[2021-02-05] MEDS ORDERED: methylPREDNISolone 125 MG/2 ML VIAL IVP ONE ×2 (07:27→08:38)
[2021-02-05 07:28] LABS: Basophils # 0.1 K/mcL (0.0-0.2); Basophils % 0.7 %; Eosinophils # 0.3 K/mcL (0.0-0.6); Eosinophils % 3.7 %; Hematocrit 32.8 % (35.3-44.9); Hemoglobin 10.1 g/dL (11.5-15.4); Immature Granulocytes % 0.4 % (0-4); Lymphocytes # 1.4 K/mcL (0.6-4.6); Lymphocytes % 15.1 %; Mean Corpuscular HGB Conc 30.8 g/dL (31.6-35.5); Mean Corpuscular Hemoglobin 27.5 pg (28.0-33.3); Mean Corpuscular Volume 89.4 fL (83.0-100.0); Monocytes # 1.1 K/mcL (0.0-1.3); Monocytes % 12.4 %; Neutrophils # 6.3 K/mcL (1.6-8.9); Platelet Count 488 K/mcL (140-400); Red Blood Count 3.67 M/mcL (3.82-4.97); Red Cell Distribution Width 14.1 % (11.5-14.5); Segmented Neutrophils % 67.7 %; White Blood Count 9.2 K/mcL (4.3-11.1)
[2021-02-05 07:46] LABS: BUN/Creatinine Ratio 17 (6-26); Blood Urea Nitrogen 11 mg/dL (8-23); Carbon Dioxide 36 mEq/L (23-29); Chloride 96 mEq/L (98-107); Glucose 96 mg/dL (70-105); Osmolality,Calculated 279 (280-300); Potassium 4.2 mEq/L (3.5-5.1); Sodium 135 mEq/L (136-145); eGFR For African Americans > 60 (> 60); eGFR For Non-African Americans > 60 (> 60)
[2021-02-05 08:26] LABS: Troponin I < 0.03 ng/mL (< 0.04)
[2021-02-05 08:29] LABS: VBG HCO3 37 mEq/L (21-27); VBG PCO2 90 mmHg (41-51); VBG PH 7.22 pH Units (7.32-7.42); VBG PO2 38 mmHg (25-50)
[2021-02-05 08:46] LABS: Influenza A PCR Negative (Negative); Influenza B PCR Negative (Negative); Resp. Syncytial Virus PCR Negative (Negative)
[2021-02-05 08:50] LABS: Bacteria,Urine Few per hpf (None-Few); Bilirubin,Urine Negative (Negative); Blood,Urine Negative (Negative); Clarity,Urine Clear (Clear); Color,Urine Light-Yellow (Yellow); Glucose,Urine (UA) Normal (Normal); Ketones,Urine Negative (Negative); Leukocyte Esterase,Urine Moderate (Negative); Nitrite,Urine Positive (Negative); Protein,Urine Negative (Neg-Trace); RBC,Urine 0-3 per hpf (0-3); Urobilinogen,Urine Normal (Normal)
[2021-02-05 09:44] LABS: ABG Base Excess 5 mEq/L (-2 to 3); ABG HCO3 34 mEq/L (21-27); ABG Oxygen Saturation 96 % (95-98); ABG PCO2 77 mmHg (35-45); ABG PH 7.26 pH Units (7.32-7.45); ABG PO2 94 mmHg (85-104); ABG TCO2 37 mEq/L (20-26)
[2021-02-05 09:53] LABS: SARS-CoV-2 by PCR (In House) Negative (Negative)
[2021-02-05] MEDS ORDERED: Sulfamethoxazole/Trimeth DS 1 EACH TABLET PO ONE (10:01)
[2021-02-05] MEDS ORDERED: Azithromycin 250 MG TABLET PO ONE (12:34)
[2021-02-05] MEDS ORDERED: Melatonin 3 MG TABLET PO PRN (12:37)
[2021-02-05] MEDS: Metoprolol XL (24 HR) Succ 25 MG TAB.ER.24H PO SCH ×2 (13:32→21:22)
[2021-02-05 13:43] LABS: VBG HCO3 31 mEq/L (21-27); VBG PCO2 64 mmHg (41-51); VBG PO2 179 mmHg (25-50)
[2021-02-05] MEDS ORDERED: MethylPREDNISolone 40 MG/ML VIAL IVP SCH (16:00)
[2021-02-05] MEDS: Albuterol 2.5 MG/3 ML NEBULIZER IH SCH ×3 (16:13→23:40)
[2021-02-05] MEDS: ALPRAZolam 0.25 MG TABLET PO PRN (16:23)
[2021-02-05] MEDS: Budesonide/Formoterol 160/4.5 1 PUFF INH IH SCH (20:05)
[2021-02-05] MEDS: ALPRAZolam 0.5 MG TABLET PO SCH (21:22)
[2021-02-05] MEDS: GuaiFENesin Liq 200 MG/10 ML UDC PO PRN (21:26)
[2021-02-05] MEDS: Acetaminophen 325 MG TABLET PO PRN (21:26)
[2021-02-05] MEDS: Famotidine 20 MG TABLET PO SCH (21:39)
[2021-02-06] MEDS: Albuterol 2.5 MG/3 ML NEBULIZER IH SCH ×5 (04:05→20:51)
[2021-02-06] MEDS: MethylPREDNISolone 40 MG/ML VIAL IVP SCH ×2 (05:16→17:10)
[2021-02-06] MEDS: *HR* Enoxaparin 40 MG/0.4 ML SYRINGE SQ SCH (05:16)
[2021-02-06 06:43] LABS: Hematocrit 33.6 % (35.3-44.9); Hemoglobin 10.4 g/dL (11.5-15.4); Mean Corpuscular Hemoglobin 27.8 pg (28.0-33.3); Mean Corpuscular Volume 89.8 fL (83.0-100.0); Mean Platelet Volume 8.1 fL (9.4-12.4); Platelet Count 473 K/mcL (140-400); Red Blood Count 3.74 M/mcL (3.82-4.97); Red Cell Distribution Width 13.9 % (11.5-14.5); White Blood Count 6.7 K/mcL (4.3-11.1)
[2021-02-06] MEDS: GuaiFENesin Liq 200 MG/10 ML UDC PO PRN ×3 (07:03→22:30)
[2021-02-06 07:04] LABS: BUN/Creatinine Ratio 21 (6-26); Blood Urea Nitrogen 12 mg/dL (8-23); Calcium 9.5 mg/dL (8.6-10.3); Carbon Dioxide 34 mEq/L (23-29); Chloride 95 mEq/L (98-107); Glucose 100 mg/dL (70-105); Magnesium 2.1 mg/dL (1.6-2.6); Osmolality,Calculated 278 (280-300); Phosphorous 3.7 mg/dL (2.7-4.5); Potassium 5.1 mEq/L (3.5-5.1); Sodium 134 mEq/L (136-145); eGFR For African Americans > 60 (> 60); eGFR For Non-African Americans > 60 (> 60)
[2021-02-06] MEDS: Budesonide/Formoterol 160/4.5 1 PUFF INH IH SCH ×2 (07:49→20:51)
[2021-02-06] MEDS: Tiotropium 10 INH DOSE IH SCH (07:53)
[2021-02-06] MEDS: Metoprolol XL (24 HR) Succ 25 MG TAB.ER.24H PO SCH ×2 (07:54→22:30)
[2021-02-06] MEDS: ALPRAZolam 0.25 MG TABLET PO PRN (07:55)
[2021-02-06] MEDS: Aspirin Enteric Coated 81 MG Tablet PO SCH (07:55)
[2021-02-06] MEDS ORDERED: Furosemide 40 MG/4 ML VIAL IVP ONE (07:55)
[2021-02-06] MEDS: Azithromycin 250 MG TABLET PO SCH (07:55)
[2021-02-06] MEDS ORDERED: *HR* LORazepam 0.5 MG TABLET PO PRN (13:39)
[2021-02-06 16:16] LABS: VBG HCO3 34 mEq/L (21-27); VBG PCO2 58 mmHg (41-51); VBG PH 7.37 pH Units (7.32-7.42); VBG PO2 132 mmHg (25-50)
[2021-02-06] MEDS: Acetaminophen 325 MG TABLET PO PRN (17:19)
[2021-02-06] MEDS: ALPRAZolam 0.5 MG TABLET PO PRN (17:32)
[2021-02-06] MEDS: ALPRAZolam 0.5 MG TABLET PO SCH (22:30)
[2021-02-07] MEDS: Albuterol 2.5 MG/3 ML NEBULIZER IH SCH ×6 (00:30→20:17)
[2021-02-07] MEDS: Famotidine 20 MG TABLET PO SCH ×2 (01:30→20:36)
[2021-02-07] MEDS: MethylPREDNISolone 40 MG/ML VIAL IVP SCH ×2 (04:51→15:17)
[2021-02-07] MEDS: *HR* Enoxaparin 40 MG/0.4 ML SYRINGE SQ SCH (04:51)
[2021-02-07] MEDS: GuaiFENesin Liq 200 MG/10 ML UDC PO PRN ×3 (04:51→21:37)
[2021-02-07] MEDS: ALPRAZolam 0.5 MG TABLET PO PRN (06:16)
[2021-02-07] MEDS: Budesonide/Formoterol 160/4.5 1 PUFF INH IH SCH ×2 (07:21→21:49)
[2021-02-07] MEDS: Tiotropium 10 INH DOSE IH SCH (07:22)
[2021-02-07] MEDS: Azithromycin 250 MG TABLET PO SCH (07:49)
[2021-02-07] MEDS: Aspirin Enteric Coated 81 MG Tablet PO SCH (07:49)
[2021-02-07] MEDS: Metoprolol XL (24 HR) Succ 25 MG TAB.ER.24H PO SCH ×2 (07:49→21:30)
[2021-02-07] MEDS: ALPRAZolam 0.25 MG TABLET PO PRN (13:15)
[2021-02-07] MEDS: Acetaminophen 325 MG TABLET PO PRN (14:06)
[2021-02-07] MEDS ORDERED: *HR* Labetalol 20 MG/4 ML SYRINGE IVP PRN (14:36)
[2021-02-07] MEDS: *HR* Labetalol 20 MG/4 ML SYRINGE IVP PRN (15:17)
[2021-02-07] MEDS: hydrALAZINE 25 MG TABLET PO SCH (16:20)
[2021-02-07] MEDS ORDERED: hydrALAZINE 25 MG TABLET PO SCH (18:00)
[2021-02-07] MEDS: ALPRAZolam 0.5 MG TABLET PO SCH (20:31)
[2021-02-07] MEDS: DOXYCYCLINE ORAL SUSPENSION 100 MG/10 ML UDC PO SCH (21:00)
[2021-02-08] MEDS: Albuterol 2.5 MG/3 ML NEBULIZER IH SCH ×6 (00:17→21:59)
[2021-02-08] MEDS: ALPRAZolam 0.25 MG TABLET PO PRN ×3 (00:47→16:38)
[2021-02-08] MEDS: *HR* Labetalol 20 MG/4 ML SYRINGE IVP PRN (00:51)
[2021-02-08] MEDS: Acetaminophen 325 MG TABLET PO PRN ×2 (00:55→23:46)
[2021-02-08] MEDS: hydrALAZINE 25 MG TABLET PO SCH ×2 (06:31→16:38)
[2021-02-08] MEDS: *HR* Enoxaparin 40 MG/0.4 ML SYRINGE SQ SCH (06:31)
[2021-02-08] MEDS: Aspirin Enteric Coated 81 MG Tablet PO SCH (07:36)
[2021-02-08] MEDS: Metoprolol XL (24 HR) Succ 25 MG TAB.ER.24H PO SCH ×2 (07:36→21:04)
[2021-02-08] MEDS: DOXYCYCLINE ORAL SUSPENSION 100 MG/10 ML UDC PO SCH ×2 (07:39→21:05)
[2021-02-08] MEDS: MethylPREDNISolone 40 MG/ML VIAL IVP SCH ×2 (07:45→16:38)
[2021-02-08] MEDS: Tiotropium 10 INH DOSE IH SCH (08:02)
[2021-02-08] MEDS: Budesonide/Formoterol 160/4.5 1 PUFF INH IH SCH ×2 (08:03→20:45)
[2021-02-08] MEDS: Ondansetron 4 MG/2 ML VIAL IVP PRN ×3 (09:54→23:47)
[2021-02-08] MEDS: Mag Hydrox/Al Hydrox/Simeth 30 ML UDC PO PRN (10:32)
[2021-02-08 10:38] LABS: Basophils % 0.2 %; Hemoglobin 10.3 g/dL (11.5-15.4); Immature Granulocytes % 0.7 % (0-4); Lymphocytes # 0.4 K/mcL (0.6-4.6); Lymphocytes % 3.8 %; Mean Corpuscular HGB Conc 32.2 g/dL (31.6-35.5); Mean Corpuscular Hemoglobin 28.3 pg (28.0-33.3); Mean Corpuscular Volume 87.9 fL (83.0-100.0); Monocytes # 0.3 K/mcL (0.0-1.3); Monocytes % 3.4 %; Neutrophils # 9.1 K/mcL (1.6-8.9); Platelet Count 467 K/mcL (140-400); Red Blood Count 3.64 M/mcL (3.82-4.97); Red Cell Distribution Width 13.6 % (11.5-14.5); Segmented Neutrophils % 91.9 %; White Blood Count 9.9 K/mcL (4.3-11.1)
[2021-02-08 10:39] LABS: VBG HCO3 34 mEq/L (21-27); VBG PCO2 55 mmHg (41-51); VBG PO2 108 mmHg (25-50)
[2021-02-08 11:29] LABS: BUN/Creatinine Ratio 43 (6-26); Blood Urea Nitrogen 21 mg/dL (8-23); Calcium 9.1 mg/dL (8.6-10.3); Carbon Dioxide 35 mEq/L (23-29); Chloride 85 mEq/L (98-107); Glucose 128 mg/dL (70-105); Osmolality,Calculated 265 (280-300); Potassium 4.7 mEq/L (3.5-5.1); Sodium 125 mEq/L (136-145); eGFR For African Americans > 60 (> 60); eGFR For Non-African Americans > 60 (> 60)
[2021-02-08] MEDS ORDERED: *HR* Labetalol 20 MG/4 ML SYRINGE IVP PRN (15:41)
[2021-02-08] MEDS: ALPRAZolam 0.5 MG TABLET PO SCH (21:04)
[2021-02-08] MEDS: Famotidine 20 MG TABLET PO SCH (21:08)
[2021-02-09] MEDS: Albuterol 2.5 MG/3 ML NEBULIZER IH SCH ×3 (00:08→07:41)
[2021-02-09] MEDS: Mag Hydrox/Al Hydrox/Simeth 30 ML UDC PO PRN (00:58)
[2021-02-09] MEDS ORDERED: polyethylene glycoL 3350 17 GM POWD.PACK PO ONE (03:34)
[2021-02-09] MEDS: *HR* Enoxaparin 40 MG/0.4 ML SYRINGE SQ SCH (05:57)
[2021-02-09] MEDS: hydrALAZINE 25 MG TABLET PO SCH ×2 (05:57→17:13)
[2021-02-09] MEDS: MethylPREDNISolone 40 MG/ML VIAL IVP SCH ×2 (05:58→17:13)
[2021-02-09] MEDS: ALPRAZolam 0.25 MG TABLET PO PRN ×2 (06:08→14:32)
[2021-02-09] MEDS: Budesonide/Formoterol 160/4.5 1 PUFF INH IH SCH ×2 (07:40→22:27)
[2021-02-09] MEDS: Tiotropium 10 INH DOSE IH SCH (07:41)
[2021-02-09] MEDS ORDERED: Furosemide 40 MG TABLET PO SCH (09:00)
[2021-02-09] MEDS ORDERED: levoFLOXacin 500 MG TABLET PO SCH (10:30)
[2021-02-09] MEDS: Aspirin Enteric Coated 81 MG Tablet PO SCH (10:31)
[2021-02-09] MEDS: Metoprolol XL (24 HR) Succ 25 MG TAB.ER.24H PO SCH ×2 (10:31→21:24)
[2021-02-09] MEDS: DOXYCYCLINE ORAL SUSPENSION 100 MG/10 ML UDC PO SCH (10:39)
[2021-02-09 11:06] LABS: BUN/Creatinine Ratio 38 (6-26); Blood Urea Nitrogen 22 mg/dL (8-23); Calcium 8.7 mg/dL (8.6-10.3); Carbon Dioxide 34 mEq/L (23-29); Chloride 80 mEq/L (98-107); Glucose 117 mg/dL (70-105); Osmolality,Calculated 254 (280-300); Potassium 5.1 mEq/L (3.5-5.1); Sodium 120 mEq/L (136-145); eGFR For African Americans > 60 (> 60); eGFR For Non-African Americans > 60 (> 60)
[2021-02-09] MEDS ORDERED: Lactulose Oral Soln 20 GM/30 ML UDC PO ONE (12:00)
[2021-02-09 18:08] LABS: BUN/Creatinine Ratio 33 (6-26); Blood Urea Nitrogen 20 mg/dL (8-23); Calcium 8.4 mg/dL (8.6-10.3); Carbon Dioxide 32 mEq/L (23-29); Chloride 80 mEq/L (98-107); Glucose 96 mg/dL (70-105); Osmolality,Calculated 254 (280-300); Potassium 5.1 mEq/L (3.5-5.1); Sodium 121 mEq/L (136-145); eGFR For African Americans > 60 (> 60); eGFR For Non-African Americans > 60 (> 60)
[2021-02-09 20:18] LABS: BUN/Creatinine Ratio 33 (6-26); Blood Urea Nitrogen 21 mg/dL (8-23); Calcium 8.8 mg/dL (8.6-10.3); Carbon Dioxide 38 mEq/L (23-29); Chloride 79 mEq/L (98-107); Glucose 114 mg/dL (70-105); Osmolality,Calculated 256 (280-300); Sodium 121 mEq/L (136-145); eGFR For African Americans > 60 (> 60); eGFR For Non-African Americans > 60 (> 60)
[2021-02-09] MEDS: Famotidine 20 MG TABLET PO SCH (21:24)
[2021-02-09] MEDS: ALPRAZolam 0.5 MG TABLET PO SCH (21:24)
[2021-02-09] MEDS: Cefdinir 300 MG CAPSULE PO SCH (21:24)
[2021-02-10 03:39] LABS: BUN/Creatinine Ratio 42 (6-26); Blood Urea Nitrogen 22 mg/dL (8-23); Calcium 8.5 mg/dL (8.6-10.3); Carbon Dioxide 33 mEq/L (23-29); Chloride 80 mEq/L (98-107); Glucose 92 mg/dL (70-105); Osmolality,Calculated 255 (280-300); Potassium 5.2 mEq/L (3.5-5.1); Sodium 121 mEq/L (136-145); eGFR For African Americans > 60 (> 60); eGFR For Non-African Americans > 60 (> 60)
[2021-02-10] MEDS: MethylPREDNISolone 40 MG/ML VIAL IVP SCH ×2 (06:25→19:02)
[2021-02-10] MEDS: hydrALAZINE 25 MG TABLET PO SCH ×2 (06:25→17:58)
[2021-02-10] MEDS: *HR* Enoxaparin 40 MG/0.4 ML SYRINGE SQ SCH (06:25)
[2021-02-10] MEDS: Metoprolol XL (24 HR) Succ 25 MG TAB.ER.24H PO SCH (08:32)
[2021-02-10] MEDS: Aspirin Enteric Coated 81 MG Tablet PO SCH (08:32)
[2021-02-10] MEDS: Cefdinir 300 MG CAPSULE PO SCH (08:32)
[2021-02-10 09:21] LABS: BUN/Creatinine Ratio 50 (6-26); Blood Urea Nitrogen 26 mg/dL (8-23); Calcium 9.1 mg/dL (8.6-10.3); Carbon Dioxide 35 mEq/L (23-29); Chloride 79 mEq/L (98-107); Glucose 92 mg/dL (70-105); Osmolality,Calculated 256 (280-300); Potassium 4.8 mEq/L (3.5-5.1); Sodium 121 mEq/L (136-145); eGFR For African Americans > 60 (> 60); eGFR For Non-African Americans > 60 (> 60)
[2021-02-10] MEDS: Budesonide/Formoterol 160/4.5 1 PUFF INH IH SCH ×2 (10:15→19:49)
[2021-02-10] MEDS: Tiotropium 10 INH DOSE IH SCH (10:18)
[2021-02-10] MEDS ORDERED: Albuterol 2.5 MG/3 ML NEBULIZER IH PRN (10:52)
[2021-02-10] MEDS ORDERED: *HR* HYDROcodone/Acet 5/325 mg TABLET PO ONE (21:41)
[2021-02-11] MEDS: ALPRAZolam 0.5 MG TABLET PO SCH ×2 (00:13→23:03)
[2021-02-11] MEDS: Famotidine 20 MG TABLET PO SCH ×2 (00:13→23:04)
[2021-02-11] MEDS: Metoprolol XL (24 HR) Succ 25 MG TAB.ER.24H PO SCH ×3 (00:13→23:03)
[2021-02-11] MEDS: polyethylene glycoL 3350 17 GM POWD.PACK PO SCH ×2 (00:16→23:03)
[2021-02-11] MEDS: Cefdinir 300 MG CAPSULE PO SCH ×3 (01:18→23:04)
[2021-02-11 06:02] LABS: Albumin 3.9 g/dL (3.5-5.7); BUN/Creatinine Ratio 60 (6-26); Blood Urea Nitrogen 31 mg/dL (8-23); Calcium 8.8 mg/dL (8.6-10.3); Carbon Dioxide 34 mEq/L (23-29); Chloride 80 mEq/L (98-107); Glucose 84 mg/dL (70-105); Magnesium 2.3 mg/dL (1.6-2.6); Osmolality,Calculated 262 (280-300); Phosphorous 4.3 mg/dL (2.7-4.5); Sodium 123 mEq/L (136-145); eGFR For African Americans > 60 (> 60); eGFR For Non-African Americans > 60 (> 60)
[2021-02-11] MEDS: *HR* Enoxaparin 40 MG/0.4 ML SYRINGE SQ SCH (06:12)
[2021-02-11] MEDS: MethylPREDNISolone 40 MG/ML VIAL IVP SCH ×2 (06:12→17:54)
[2021-02-11] MEDS: Aspirin Enteric Coated 81 MG Tablet PO SCH (09:32)
[2021-02-11] MEDS: Budesonide/Formoterol 160/4.5 1 PUFF INH IH SCH ×2 (11:56→20:11)
[2021-02-11] MEDS: Tiotropium 10 INH DOSE IH SCH (11:59)
[2021-02-11 12:43] VITALS: O2SAT 97
[2021-02-11] MEDS ORDERED: hydrALAZINE 25 MG TABLET PO SCH (18:00)
[2021-02-11 21:17] VITALS: BP 177/55; PULSE 79; TEMP 97.8
[2021-02-12] MEDS: Tiotropium 10 INH DOSE IH SCH (07:59)
[2021-02-12] MEDS: Budesonide/Formoterol 160/4.5 1 PUFF INH IH SCH (07:59)
[2021-02-15 20:16] LABS: Alpha 2 Globulin (PEP) 0.74 g/dL (0.48-1.05); Beta Globulin (PEP) 0.86 g/dL (0.48-1.10)
[2021-02-16 09:46] LABS: Immunoglobulin G 683 mg/dL (768-1632); Immunoglobulin M 126 mg/dL (35-263)
[2021-02-16 09:47] LABS: IFE Reflexed IFE Done; Immunoglobulin A 289 mg/dL (68-408)
== END 2021-02-12 12:42 | disposition expired | DRG 190 ==
LOC: 2NENU 06:45 → EMEROOARM 06:45 → 2NENU 11:16 → SUATTDRO 12:37
PROVIDERS: ADMIT Internal Medicine; ATTEND Internal Medicine